=== PATIENT | female | born 2000 | race Caucasian/White ===

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

== ENCOUNTER 2023-08-06 17:13 | Emergency (ER) | payer OTHER, SELFPAY ==
[2023-08-06] MEDS ORDERED: FAMOTIDINE 20 MG/2 ML VIAL IV ONE (17:52)
[2023-08-06] MEDS ORDERED: ONDANSETRON 4 MG/2 ML VIAL ONE (17:52)
[2023-08-06] MEDS ORDERED: NA CHLORIDE 0.9% 1,000 ML ONE (17:52)
[2023-08-06 18:01] LABS: Specific Gravity 1.031 (1.005-1.030)
[2023-08-06 18:03] LABS: Absolute Lymphocytes (CBC) 1.4 K/uL (0.7-4.9); Hematocrit 40.1 % (36.0-45.0); Lymphocytes % 10.9 % (15.3-44.8); MCV 85.5 fL (80-100); MPV 7.8 fL (7.6-11.3); Platelets 277 thou/uL (152-406); RBC Red Blood Cell Count 4.68 M/uL (3.86-4.86); Specific Gravity > 1.030 (1.005-1.030); Urine Bacteria <20 /HPF (<20); Urine Bilirubin NEGATIVE (Negative); Urine Blood Negative (Negative); Urine Clarity Turbid (Clear); Urine Color Yellow (Yellow); Urine Glucose NEGATIVE (Negative); Urine Mucus Slight /HPF (None Seen); Urine Protein 2+ (Negative); Urine Urobilinogen Normal (Normal); Urine pH 8.5 (5.0-7.0)
[2023-08-06 18:10] LABS: SARS-CoV-2 Antigen Rapid Res Negative (Negative)
[2023-08-06 18:17] LABS: Albumin 3.8 g/dL (3.4-5.0); Bilirubin Total 0.4 mg/dL (0.2-1.0); Potassium 3.5 mEq/L (3.5-5.1); Protein, Total 7.7 g/dL (6.4-8.2)
--- NOTE | 2023-08-06 18:49 | RAD REPORT ---
EXAM DESCRIPTION: CT - Abdomen Pelvis W Contrast - 08/06/2023 6:32 pm CLINICAL HISTORY: Abdominal pain COMPARISON: none. TECHNIQUE: Computed axial tomography of the abdomen pelvis was obtained. 100 cc Isovue-300 was admin istered intravenously. Oral contrast was not requested which limits evaluation of bowel and appendix All CT scans are performed using dose optimization technique as appropriate and may include automated exposure control or mA/KV adjustment according to patient size. FINDINGS: The liver, spleen, pancreas, adrenal and kidneys appear unremarkable. There is no evidence of diverticulitis. Normal appendix A 2 centimeter irregularly-shaped right ovarian cyst. Small amount of free fluid IMPRESSION: A 2 centimeter irregularly-shaped right ovarian cyst probably has recently ruptured. Small amount of free fluid
--- NOTE | 2023-08-06 18:57 | ER ---
Nurse's Notes [facility] Name: Francheska Tabares Age: 22 yrs Sex: Female : 2000 Arrival Date: 08/06/2023 Time: 17:13 Bed 14 Private MD: Diagnosis: Upper abdominal pain, unspecified;Nausea with vomiting, unspecified;Other ovarian cysts Presentation: 08/06 17:28 Chief complaint: Patient states: Mid abdominal pain, N/V since 0300 this morning. jl7 Coronavirus screen: Client presents with at least one sign or symptom that may indicate coronavirus-19. Ebola Screen: No symptoms or risks identified at this time. Initial Sepsis Screen: Does the patient meet any 2 criteria? No. Patient's initial sepsis screen is negative. Does the patient have a suspected source of infection? No. Patient's initial sepsis screen is negative. Risk Assessment: Do you want to hurt yourself or someone else? Patient reports no desire to harm self or others. Onset of symptoms was August 06, 2023 at 03:00. 17:28 Method Of Arrival: Ambulatory [facility] 17:28 Acuity: NICHO 3 jl7 Triage Assessment: 17:30 General: Appears in no apparent distress. uncomfortable, Behavior is calm, cooperative, jl7 appropriate for age. Pain: Complains of pain in umbilical area, right upper quadrant and left upper quadrant Pain currently is 9 out of 10 on a pain scale. Neuro: Level of Consciousness is awake, alert, obeys commands, Oriented to person, place, time, situation. Cardiovascular: Patient's skin is warm and dry. Respiratory: Airway is patent Respiratory effort is even, unlabored, Respiratory pattern is regular, symmetrical. GI: Reports nausea, vomiting, Patient currently denies constipation, diarrhea. Derm: Skin is pink, warm \T\ dry. 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 - Social history:: Smoking status: Patient denies any tobacco usage or history of. Patient uses street drugs, marijuana. Screenin:55 [facility] ED Fall Risk Assessment (Adult) Score/Fall Risk Level 0 - 2 = Low Risk jl7 Oriented to surroundings, Maintained a safe environment. Abuse screen: Denies threats or abuse. Denies injuries from another. Nutritional screening: No deficits noted. Tuberculosis screening: No symptoms or risk factors identified. Assessment: 18:00 Reassessment: Pt reports improvement in nausea at this time. jl7 18:50 Reassessment: KARINA Verdin at bedside discussing results and POC. jl7 Vital Signs: 17:28 BP 122 / 65; Pulse 79; Resp 15; Temp 97.9; Pulse Ox 99% ; Weight 90.72 kg; Height 5 ft. jl7 3 in. ; Pain 9/10; 18:00 BP 97 / 69; Pulse 67; Resp 15; Pulse Ox 100% ; jl7 17:28 Body Mass Index 35.43 (90.72 kg, 160.02 cm) jl7 17:28 Pain Scale: Adult jl7 ED Course: 17:19 Patient arrived in ED. mg5 17:28 Elliot Anderson RN is Primary Nurse. jl7 17:28 Joyce Disla PA-C is PHCP. sb4 17:28 Jono Elizabeth MD is Attending Physician. sb4 17:30 Triage completed. jl7 17:30 Arm band placed on right wrist. jl7 17:55 Patient has correct armband on for positive identification. Provided Education on: jl7 medication uses and side effects. 17:55 Initial lab(s) drawn, by tn, sent to lab. Urine collected: clean catch specimen, clear. jl7 Inserted saline lock: 20 gauge in right antecubital area, using aseptic technique. Blood collected. 18:34 CT Abd/Pelvis - IV Contrast Only In Process Unspecified. EDMS 19:16 No provider procedures requiring assistance completed. IV discontinued, intact, jl7 bleeding controlled, No redness/swelling at site. Pressure dressing applied. Administered Medications: 17:54 Drug: NS 0.9% IV 1000 ml IV at 1 bolus Per protocol; 1000 mL bolus Route: IV; Rate: 1 jl7 bolus; Site: right antecubital; 19:15 Follow up: Response: No adverse reaction; IV Status: Completed infusion; IV Intake: jl7 800ml 17:54 Drug: Famotidine IVP 20 mg IVP once; dilute with 10 mL 0.9% NaCl; give over 2 minutes jl7 Route: IVP; Site: right antecubital; 19:15 Follow up: Response: No adverse reaction jl7 17:54 Drug: Ondansetron IVP 4 mg IVP once; over 2 minutes Route: IVP; Site: right antecubital;jl7 18:30 Follow up: Response: No adverse reaction; Nausea is decreased jl7 19:00 Not Given (Physician Discretion): morphineor iv 2 mg IVP once over 1 mins sb4 19:14 Drug: HYDROcodone-acetaminophen PO 5 mg-325 mg 1 tabs PO once Route: PO; jl7 19:15 Follow up: Response: Medication administered at discharge. jl7 19:14 Drug: Dicyclomine IM 20 mg IM once Route: IM; Site: right ventrogluteal; jl7 19:15 Follow up: Response: Medication administered at discharge. jl7 Medication: 17:55 VIS not applicable for this client. jl7 Intake: 19:15 IV: 800ml; Total: 800ml. jl7 Outcome: 18:56 Discharge ordered by . sb4 19:16 Discharged to home ambulatory, with significant other, jl7 19:16 Condition: stable 19:16 Discharge instructions given to patient, significant other, Instructed on discharge instructions, follow up and referral plans. medication usage, Demonstrated understanding of instructions, follow-up care, medications, Prescriptions given X 2, 19:16 Patient left the ED. jl7 Signatures: Dispatcher [employer] Elliot Menjivar RN RN jl7 Joyce Disla PA-C PAMamadou 4 Krista Haider mg5
--- NOTE | 2023-08-06 18:57 | EDPHYS ---
Physician Documentation [facility] Name: Francheska Tabares Age: 22 yrs Sex: Female : 2000 Arrival Date: 08/06/2023 Time: 17:13 Bed 14 Private MD: ED Physician Jono Elizabeth HPI: 08/06 17:38 This 22 yrs old Female presents to ER via Ambulatory with complaints of Abdominal Pain, sb4 Vomiting. 17:38 The patient presents with abdominal pain in the epigastric area. Onset: The sb4 symptoms/episode began/occurred this morning. The symptoms do not radiate. Associated signs and symptoms: Pertinent positives: nausea and vomiting, fever. The symptoms are described as burning. Modifying factors: The symptoms are alleviated by nothing, the symptoms are aggravated by drinking, food. The patient has experienced similar episodes in the past, a few times. The patient has not recently seen a physician. 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 - Social history:: Smoking status: Patient denies any tobacco usage or history of. Patient uses street drugs, marijuana. ROS: 17:38 Cardiovascular: Negative for chest pain, palpitations, and edema, sb4 17:38 Constitutional: Positive for fever, 17:38 Abdomen/GI: Positive for abdominal pain, nausea and vomiting, 17:38 All other systems are negative, Exam: 17:38 Constitutional: This is a well developed, well nourished patient who is awake, alert, sb4 and in no acute distress. Head/Face: Normocephalic, atraumatic. Eyes: Extra-ocular motions intact. Periorbital areas with no swelling, redness, or edema. ENT: Mucous membranes moist. Cardiovascular: Regular rate and rhythm with a normal S1 and S2. Respiratory: Lungs have equal breath sounds bilaterally, clear to auscultation and percussion. No rales, rhonchi or wheezes noted. No increased work of breathing, no retractions or nasal flaring. Abdomen/GI: Soft, non-tender, no distension. Skin: Warm, dry with normal turgor. Normal color with no rashes, no lesions, and no evidence of cellulitis. MS/ Extremity: Pulses equal, no cyanosis. Neurovascular intact. Full, normal range of motion. Neuro: Awake and alert, GCS 15, oriented to person, place, time, and situation. Motor strength 5/5 in all extremities. Sensory grossly intact. Vital Signs: 17:28 BP 122 / 65; Pulse 79; Resp 15; Temp 97.9; Pulse Ox 99% ; Weight 90.72 kg; Height 5 ft. jl7 3 in. ; Pain 9/10; 18:00 BP 97 / 69; Pulse 67; Resp 15; Pulse Ox 100% ; jl7 17:28 Body Mass Index 35.43 (90.72 kg, 160.02 cm) jl7 17:28 Pain Scale: Adult jl7 MDM: 17:28 Patient medically screened. sb4 17:38 Differential diagnosis: Cholelithiasis, gastritis, non-specific abd pain, pancreatitis, sb4 Peptic Ulcer Disease, urinary tract infection. 18:55 Data reviewed: vital signs, nurses notes, lab test result(s), radiologic studies, and sb4 as a result, I will discharge patient. Consideration of Admission/Observation Escalation of care including admission/observation considered. Counseling: I had a detailed discussion with the patient and/or guardian regarding the historical points, exam findings, and any diagnostic results supporting the discharge/admit diagnosis, lab results, radiology results, to return to the emergency department if symptoms worsen or persist or if there are any questions or concerns that arise at home. Special discussion: Based on the patient's Hx, exam, and Dx evaluation, there is no indication for emergent surgery or inpatient Tx. It is understood by the patient/guardian that if the Sx's persist or worsen they need to return immediately for re-evaluation. 08/06 17:36 Order name: CBC with Diff; Complete Time: 18:06 sb4 08/06 17:36 Order name: CMP; Complete Time: 18:17 sb4 08/06 17:36 Order name: Lipase; Complete Time: 18:17 sb4 08/06 17:36 Order name: Test, Urine; Complete Time: 18:02 sb4 08/06 17:36 Order name: UAM; Complete Time: 18:06 sb4 08/06 17:36 Order name: SARS RAPID; Complete Time: 18:16 sb4 08/06 17:36 Order name: Flu; Complete Time: 18:20 sb4 08/06 17:36 Order name: CT Abd/Pelvis - IV Contrast Only; Complete Time: 18:50 sb4 08/06 17:36 Order name: IV Saline Lock; Complete Time: 17:54 sb4 08/06 17:36 Order name: Labs collected and sent; Complete Time: 17:54 sb4 08/06 18:51 Order name: PO challenge; Complete Time: 18:56 sb4 Administered Medications: 17:54 Drug: NS 0.9% IV 1000 ml IV at 1 bolus Per protocol; 1000 mL bolus Route: IV; Rate: 1 jl7 bolus; Site: right antecubital; 19:15 Follow up: Response: No adverse reaction; IV Status: Completed infusion; IV Intake: jl7 800ml 17:54 Drug: Famotidine IVP 20 mg IVP once; dilute with 10 mL 0.9% NaCl; give over 2 minutes jl7 Route: IVP; Site: right antecubital; 19:15 Follow up: Response: No adverse reaction jl7 17:54 Drug: Ondansetron IVP 4 mg IVP once; over 2 minutes Route: IVP; Site: right antecubital;jl7 18:30 Follow up: Response: No adverse reaction; Nausea is decreased jl7 19:00 Not Given (Physician Discretion): morphineor iv 2 mg IVP once over 1 mins sb4 19:14 Drug: HYDROcodone-acetaminophen PO 5 mg-325 mg 1 tabs PO once Route: PO; jl7 19:15 Follow up: Response: Medication administered at discharge. jl7 19:14 Drug: Dicyclomine IM 20 mg IM once Route: IM; Site: right ventrogluteal; jl7 19:15 Follow up: Response: Medication administered at discharge. jl7 Disposition Summary: 08/06/23 18:56 Discharge Ordered Notes: Location: Home sb4 Problem: new sb4 Symptoms: have improved sb4 Condition: Stable sb4 Diagnosis - Upper abdominal pain, unspecified sb4 - Nausea with vomiting, unspecified sb4 - Other ovarian cysts sb4 Followup: sb4 - With: Emergency Department - When: As needed - Reason: Trouble breathing, Worsening of condition Discharge Instructions: - Discharge Summary Sheet sb4 - Abdominal Pain, Adult sb4 - Nausea and Vomiting, Adult sb4 - Ovarian Cyst sb4 Forms: - Work release form sp - Medication Reconciliation Form sb4 - Thank You Letter sb4 - Antibiotic Education sb4 - Prescription Opioid Use sb4 - Patient Portal Instructions sb4 - Leadership Thank You Letter sb4 Prescriptions: - Zofran 4 mg Oral Tablet - take 1 tablet ORAL route every 12 hours As needed; 20 tablet; Refills: 0, sb4 Product Selection Permitted - dicyclomine 20 mg Oral tablet - take 1 tablet ORAL route 3 times per day; 20 tablet; Refills: 0, Product sb4 Selection Permitted Addendum: 08/09/2023 10:22 I was immediately available for consultation during this patient's visit. I did not e c2 personally see the patient or guide the patient's care.. Signatures: Dispatcher [employer] Elliot Menjivar RN RN jl7 Joyce Disla PA-C PAMamadou sb4 Jono Elizabeth MD MD ec2
[2023-08-06] MEDS ORDERED: DICYCLOMINE HCL 10 MG CAP ONE (19:16)
[2023-08-06] MEDS ORDERED: HYDROCODONE/APAP 5/325 MG TAB ONE (19:16)
[2023-08-06] MEDS ORDERED: DICYCLOMINE HCL 20 MG/2 ML AMP IM ONE (19:20)
[2023-08-06 19:43] VITALS: TEMP 97.9
[2023-08-06 19:44] VITALS: BP 97/69; O2SAT 100
== END 2023-08-06 19:16 | disposition home or self-care (01) ==
LOC: ER 17:13
DX: R10.13 Epigastric pain (principal); R11.2 Nausea with vomiting, unspecified; N83.299 Other ovarian cyst, unspecified side; Z11.52 Encounter for screening for COVID-19
CPT/HCPCS: 36415; 74177; 80053; 81001; 81025; 83690; 85025; 87804; 87811; 96361; 96372; 96374; 96375; 99284; J0500; J2405; J7030; Q9967

== ENCOUNTER 2023-08-08 11:00 | Emergency (ER) | payer SELFPAY ==
[2023-08-08 11:44] LABS: Specific Gravity 1.016 (1.005-1.030); Urine Bacteria 20-50 /HPF (<20); Urine Bilirubin NEGATIVE (Negative); Urine Blood 2+ (Negative); Urine Clarity Extremely Turbid (Clear); Urine Color Light-Yellow (Yellow); Urine Glucose NEGATIVE (Negative); Urine Protein TRACE (Negative); Urine RBC >50 /HPF (None Seen); Urine Urobilinogen Normal (Normal)
[2023-08-08] MEDS ORDERED: KETOROLAC 30 MG/ML INJ ONE (11:46)
--- NOTE | 2023-08-08 11:47 | ER ---
Nurse's Notes [facility] Name: Francheska Tabares Age: 22 yrs Sex: Female : 2000 Arrival Date: 08/08/2023 Time: 11:00 Bed 19 Private MD: Diagnosis: UTI/ Urinary tract infection, site not specified Presentation: 08/08 11:09 Chief complaint: Patient states: Pt reports pain in the vagina and worsening vaginal jl7 pain with urination, denies burning with urination. Coronavirus screen: At this time, the client does not indicate any symptoms associated with coronavirus-19. Ebola Screen: No symptoms or risks identified at this time. Initial Sepsis Screen: Does the patient meet any 2 criteria? No. Patient's initial sepsis screen is negative. Does the patient have a suspected source of infection? No. Patient's initial sepsis screen is negative. Risk Assessment: Do you want to hurt yourself or someone else? Patient reports no desire to harm self or others. Onset of symptoms was August 08, 2023. 11:09 Method Of Arrival: Ambulatory 7 11:09 Acuity: NICHO 3 jl7 Triage Assessment: 11:10 General: Appears in no apparent distress. uncomfortable, Behavior is cooperative, jl7 appropriate for age, crying. Pain: Complains of pain in pelvis Pain currently is 9 out of 10 on a pain scale. GI: Reports nausea, vomiting. 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 - Social history:: Smoking status: Patient denies any tobacco usage or history of. Patient uses street drugs, marijuana. Screenin:43 [facility] ED Fall Risk Assessment (Adult) History of falling in the last 3 months, mb9 including since admission No falls in past 3 months (0 pts) Confusion or Disorientation No (0 pts) Intoxicated or Sedated No (0 pts) Impaired Gait No (0 pts) Mobility Assist Device Used No (0 pt) Altered Elimination No (0 pt) Score/Fall Risk Level 0 - 2 = Low Risk Oriented to surroundings, Maintained a safe environment, Educated pt \T\ family on fall prevention, incl call for assistance when getting out of bed. Abuse screen: Denies threats or abuse. Nutritional screening: No deficits noted. Tuberculosis screening: No symptoms or risk factors identified. Assessment: 11:42 General: Appears in no apparent distress. Behavior is calm, cooperative. Pain: mb9 Complains of pain in pelvis. Neuro: Ruiz Agitation-Sedation Scale (RASS): 0 - Alert and Calm Level of Consciousness is awake, alert, obeys commands, Oriented to person, place, time, situation, Appropriate for age. Cardiovascular: Patient's skin is warm and dry. Respiratory: Airway is patent Respiratory effort is even, unlabored, Respiratory pattern is regular, symmetrical. GI: Abdomen is round non-distended, Abd is soft and non tender X 4 quads. : Reports burning with urination, urgency, urinary frequency. : Urine is cloudy. EENT: No signs and/or symptoms were reported regarding the EENT system. Derm: Skin is pink, warm \T\ dry. Musculoskeletal: Range of motion: intact in all extremities. Vital Signs: 11:09 BP 125 / 88; Pulse 87; Resp 17; Temp 97.7; Pulse Ox 99% ; Weight 90.72 kg; Height 5 ft. jl7 3 in. ; Pain 9/10; 11:09 Body Mass Index 35.43 (90.72 kg, 160.02 cm) jl7 11:09 Pain Scale: Adult jl7 ED Course: 11:02 Patient arrived in ED. mg5 11:03 Ruthie Canseco FNP-C is [facility]. snw 11:03 Madhu Stevens MD is Attending Physician. snw 11:10 Triage completed. jl7 11:10 Arm band placed on right wrist. jl7 11:19 Amber Ordoñez RN is Primary Nurse. mb9 11:37 Urine W/Microscopic (UAM) Sent. mb9 11:43 Placed in gown. Bed in low position. Call light in reach. Side rails up X 1. Client mb9 placed on continuous cardiac and pulse oximetry monitoring. NIBP monitoring applied. 11:43 No provider procedures requiring assistance completed. mb9 12:17 Urine Culture Sent. mb9 12:27 Patient did not have IV access during this emergency room visit. mb9 Administered Medications: 11:37 Drug: Ketorolac IM 30 mg IM once Route: IM; Site: right deltoid; mb9 12:23 Drug: Rocephin (cefTRIAXone) IM 1 grams IM once Route: IM; Site: left gluteus; mb9 Medication: 11:43 VIS not applicable for this client. mb9 Outcome: 11:46 Discharge ordered by MD. snw 12:27 Discharged to home ambulatory, mb9 12:27 Condition: stable 12:27 Discharge instructions given to patient, Instructed on discharge instructions, follow up and referral plans. Demonstrated understanding of instructions, follow-up care, medications, Prescriptions given X 3, 12:27 Patient left the ED. mb9 Addendum: 08/11/2023 07:15 Addendum: Culture Results: Positive urine culture. No further action required. Bacteria e b sensitive to prescribed antibiotic. Signatures: Ruthie Canseco, TEACHER'S ASSISTANT-C TEACHER'S ASSISTANT-Csnw Elliot Anderson RN RN jl7 Nancy Rivas Mary Beth, RN RN mb9 Krista Haider mg5
--- NOTE | 2023-08-08 11:47 | EDPHYS ---
Physician Documentation [facility] Name: Francheska Tabares Age: 22 yrs Sex: Female : 2000 Arrival Date: 08/08/2023 Time: 11:00 Bed 19 Private MD: ED Physician Madhu Stevens HPI: 08/08 11:43 This 22 yrs old Female presents to ER via Ambulatory with complaints of dysuria. snw 11:43 The patient presents with urinary symptoms, dysuria, frequency, hesitancy, urgency. snw Onset: The symptoms/episode began/occurred suddenly, today. Associated signs and symptoms: Pertinent positives: dysuria, urinary frequency. It is unknown whether or not the patient has had similar symptoms in the past. The patient has been recently seen by a physician: in the [facility], emergency department, this week. pt had CT and labs at last visit, + 2cm right irregular ovarian cyst. 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 - Social history:: Smoking status: Patient denies any tobacco usage or history of. Patient uses street drugs, marijuana. ROS: 11:42 Constitutional: Negative for fever, chills, and weight loss, Eyes: Negative for injury, snw pain, redness, and discharge, ENT: Negative for injury, pain, and discharge, Neck: Negative for injury, pain, and swelling, Cardiovascular: Negative for chest pain, palpitations, and edema, Respiratory: Negative for shortness of breath, cough, wheezing, and pleuritic chest pain, Back: Negative for injury and pain, MS/Extremity: Negative for injury and deformity, Skin: Negative for injury, rash, and discoloration, Neuro: Negative for headache, weakness, numbness, tingling, and seizure, Psych: Negative for depression, anxiety, suicide ideation, homicidal ideation, and hallucinations, 11:42 Abdomen/GI: Positive for abdominal pain, abdominal cramps, 11:42 : Positive for urinary symptoms, of the suprapubic area, right inguinal area and left inguinal area, Exam: 11:42 Constitutional: This is a well developed, well nourished patient who is awake, alert, snw and in no acute distress. Head/Face: Normocephalic, atraumatic. Eyes: Pupils equal round and reactive to light, extra-ocular motions intact. Lids and lashes normal. Conjunctiva and sclera are non-icteric and not injected. Cornea within normal limits. Periorbital areas with no swelling, redness, or edema. ENT: Nares patent. No nasal discharge, no septal abnormalities noted. Tympanic membranes are normal and external auditory canals are clear. Oropharynx with no redness, swelling, or masses, exudates, or evidence of obstruction, uvula midline. Mucous membranes moist. Neck: Trachea midline, no thyromegaly or masses palpated, and no cervical lymphadenopathy. Supple, full range of motion without nuchal rigidity, or vertebral point tenderness. No Meningismus. Chest/axilla: Normal chest wall appearance and motion. Nontender with no deformity. No lesions are appreciated. Cardiovascular: Regular rate and rhythm with a normal S1 and S2. No gallops, murmurs, or rubs. Normal PMI, no JVD. No pulse deficits. Respiratory: Lungs have equal breath sounds bilaterally, clear to auscultation and percussion. No rales, rhonchi or wheezes noted. No increased work of breathing, no retractions or nasal flaring. Back: No spinal tenderness. No costovertebral tenderness. Full range of motion. Skin: Warm, dry with normal turgor. Normal color with no rashes, no lesions, and no evidence of cellulitis. MS/ Extremity: Pulses equal, no cyanosis. Neurovascular intact. Full, normal range of motion. Neuro: Awake and alert, GCS 15, oriented to person, place, time, and situation. Cranial nerves II-XII grossly intact. Motor strength 5/5 in all extremities. Sensory grossly intact. Cerebellar exam normal. Normal gait. Psych: Awake, alert, with orientation to person, place and time. Behavior, mood, and affect are within normal limits. 11:42 Abdomen/GI: Inspection: abdomen appears normal, Bowel sounds: normal, Palpation: abdomen is soft and non-tender, in all quadrants, Vital Signs: 11:09 BP 125 / 88; Pulse 87; Resp 17; Temp 97.7; Pulse Ox 99% ; Weight 90.72 kg; Height 5 ft. jl7 3 in. ; Pain 9/10; 11:09 Body Mass Index 35.43 (90.72 kg, 160.02 cm) jl7 11:09 Pain Scale: Adult jl7 MDM: 11:16 Patient medically screened. snw 11:49 Differential diagnosis: nonspecific abdominal pain, ovarian cyst, urinary tract snw infection. Data reviewed: vital signs, nurses notes, lab test result(s). I considered the following discharge prescriptions or medication management in the emergency department Medications were administered in the Emergency Department. See MAR. Counseling: I had a detailed discussion with the patient and/or guardian regarding the historical points, exam findings, and any diagnostic results supporting the discharge/admit diagnosis, lab results, the need for outpatient follow up, for definitive care, to return to the emergency department if symptoms worsen or persist or if there are any questions or concerns that arise at home. Response to treatment: the patient's symptoms have mildly improved after treatment. Special discussion: Based on the history and exam findings, there is no indication for further emergent testing or inpatient evaluation. I discussed with the patient/guardian the need to see the primary care provider for further evaluation of the symptoms. 08/08 11:23 Order name: Urine W/Microscopic (UAM); Complete Time: 11:46 snw 08/08 11:47 Order name: Urine Culture EDMS Administered Medications: 11:37 Drug: Ketorolac IM 30 mg IM once Route: IM; Site: right deltoid; mb9 12:23 Drug: Rocephin (cefTRIAXone) IM 1 grams IM once Route: IM; Site: left gluteus; mb9 Disposition: 15:19 Co-signature as Attending Physician, Madhu Stevens MD I reviewed the patient's care rn provided by the Advanced Practice Provider and agree with the diagnosis and treatment plan. Disposition Summary: 08/08/23 11:46 Discharge Ordered Notes: Location: Home snw Condition: Stable snw Diagnosis - UTI/ Urinary tract infection, site not specified snw Followup: snw - With: Emergency Department - When: As needed - Reason: Worsening of condition Followup: snw - With: Private Physician - When: 2 - 3 days - Reason: Recheck today's complaints, Continuance of care, Re-evaluation by your physician Discharge Instructions: - Discharge Summary Sheet snw - Dysuria snw - Urinary Tract Infection, Adult snw - Rehydration, Adult snw Forms: - Work release form snw - Medication Reconciliation Form snw - Thank You Letter snw - Antibiotic Education snw - Prescription Opioid Use snw - Patient Portal Instructions snw - Leadership Thank You Letter snw Prescriptions: - Augmentin 875-125 mg Oral Tablet - take 1 tablet ORAL route every 12 hours for 10 days; 20 tablet; Refills: 0, snw Product Selection Permitted - Pyridium 200 mg Oral tablet - take 1 tablet ORAL route every 8 hours As needed; 3 tablet; Refills: 0, Product snw Selection Permitted - promethazine 25 mg Oral Tablet - take 1 tablet ORAL route every 6 hours As needed; 20 tablet; Refills: 0, snw Product Selection Permitted Signatures: Dispatcher [employer] EDRuthie Gann, WEB CONTENT COORDINATOR-C WEB CONTENT COORDINATOR-Csnw Madhu Stevens MD MD rn Leal, Jahala RN RN jl7 Amber Ordoñez, RN RN mb9
[2023-08-08] MEDS ORDERED: CEFTRIAXONE 1000 MG/VIAL ONE (12:18)
[2023-08-08] MEDS ORDERED: LIDOCAINE 1% MPF 2 ML AMPULE ONE (12:18)
[2023-08-08 12:33] VITALS: BP 125/88; TEMP 97.7; O2SAT 99
== END 2023-08-08 12:27 | disposition home or self-care (01) ==
LOC: ER 11:00
DX: N39.0 Urinary tract infection, site not specified (principal)
CPT/HCPCS: 81001; 87077; 87086; 87088; 87186; 96372; 99284; J0696

== ENCOUNTER → 2023-10-11 | Emergency (ER) | payer SELFPAY ==
[~2023-10-11] MED LIST: HYDROCODONE/CHLORPHEN 5 ML/OSYR ONE
--- OUTSIDE RECORDS SUMMARY | 2023-10-11 14:57 | XMS REPORT | Continuity of Care Document ---
Author Name Unknown Address [address] [place] [address] [employer]connect Address [address] [place] [id number] Care Team Providers Care Glaze Supervisor Name Role Phone Unavailable Unavailable Unavailable
[2023-10-11 15:57] LABS: SARS-CoV-2 Antigen Rapid Res Negative (Negative)
--- NOTE | 2023-10-11 16:00 | RAD REPORT ---
EXAM DESCRIPTION: RAD - Chest Pa And Lat (2 Views) - 10/11/2023 3:42 pm CLINICAL HISTORY: Congestion;Cough Chest pain. COMPARISON: No comparisons FINDINGS: The lungs are clear. The heart is normal in size. No displaced fractures. IMPRESSION: No acute or concerning finding suspected.
--- NOTE | 2023-10-11 16:23 | ER ---
Nurse's Notes [facility] Name: Francheska Tabares Age: 23 yrs Sex: Female : 2000 Arrival Date: 10/11/2023 Time: 14:54 Bed DIS3 Private MD: Diagnosis: Influenza B;Acute bronchitis, unspecified Presentation: 10/11 15:16 Method Of Arrival: Ambulatory ll1 15:23 Chief complaint: Patient states: Cough since 09/28. + fever, N/V with bad cough, body ll1 aches, MTZ. Coronavirus screen: Client denies travel out of the [place] in the last 14 days. cough unrelated to allergies, fatigue, fever, headache, nausea, vomiting. Client presents with at least one sign or symptom that may indicate coronavirus-19. Standard/surgical mask placed on the client. Ebola Screen: Patient denies travel to an Ebola-affected area in the 21 days before illness onset. Initial Sepsis Screen: Does the patient meet any 2 criteria? No. Patient's initial sepsis screen is negative. Does the patient have a suspected source of infection? Yes: Productive cough/pneumonia. Risk Assessment: Do you want to hurt yourself or someone else? Patient reports no desire to harm self or others. Onset of symptoms was October 08, 2023. 15:23 Acuity: NICHO 4 ll1 Triage Assessment: 15:26 General: Appears uncomfortable, Behavior is calm, cooperative, appropriate for age. ll1 Pain: Complains of pain in head Pain currently is 9 out of 10 on a pain scale. Neuro: Reports dizziness, headache weakness. Respiratory: Reports cough that is pain with cough. GI: Reports nausea, vomiting. Musculoskeletal: Reports pain in body aches. Historical: - Allergies: 15:04 No Known Allergies; ll1 - PMHx: 15:25 None; ll1 - PSHx: 15:04 Right Ankle; ll1 - Immunization history:: Adult Immunizations up to date. - Social history:: Smoking status: Patient reports the use of cigarette tobacco products, smokes one-half pack cigarettes per day. Assessment: 15:34 Reassessment: Patient and/or family updated on plan of care and expected duration. Pain ll1 level reassessed. Vital Signs: 15:23 BP 134 / 83; Pulse 91; Resp 18; Temp 98.9; Pulse Ox 99% ; Weight 95.25 kg; Height 5 ft. ll1 4 in. ; Pain 9/10; 15:23 Body Mass Index 36.05 (95.25 kg, 162.56 cm) ll1 15:23 Pain Scale: Adult ll1 ED Course: 14:56 Patient arrived in ED. mr 14:58 Joyce Disla [facility]-C [facility]. sb4 14:58 Pete Campbell MD is Attending Physician. sb4 15:04 Arm band placed on. ll1 15:25 Triage completed. ll1 15:29 SARS RAPID Sent. ll1 15:29 Flu Sent. ll1 15:34 SARS RAPID Sent. ll1 15:34 Flu Sent. ll1 15:44 Chest Pa And Lat (2 Views) XRAY In Process Unspecified. EDAR 17:01 Elliot Anderson, RN is Primary Nurse. jl7 17:02 No provider procedures requiring assistance completed. Patient did not have IV access jl7 during this emergency room visit. Administered Medications: 15:34 Drug: Tussionex Pennkinetic ER PO Suspension 5 ml PO once Route: PO; ll1 17:02 Follow up: Response: No adverse reaction; Marked relief of symptoms jl7 Medication: 17:01 VIS not applicable for this client. jl7 Outcome: 16:22 Discharge ordered by . sb4 17:02 Discharged to home ambulatory, jl7 17:02 Condition: stable 17:02 Discharge instructions given to patient, Instructed on discharge instructions, follow up and referral plans. medication usage, Demonstrated understanding of instructions, follow-up care, medications, Prescriptions given X 2, 17:02 Patient left the ED. jl7 Signatures: Dispatcher [employer] [facility] Amber Ann, Reg Reg mr Elliot Anderson, RN RN jl7 Nic Mccabe RN RN ll1 Joyce Disla PA-C PA-C sb4 Corrections: (The following items were deleted from the chart) 15:26 15:25 Social history: Smoking status: Patient reports the use of cigarette tobacco ll1 products, smokes one-half pack cigarettes per day, ll1 15:27 15:25 Social history: Smoking status: Patient denies any tobacco usage or history of. sb4 ll1
--- NOTE | 2023-10-11 16:23 | EDPHYS ---
Physician Documentation [facility] Name: Francheska Tabares Age: 23 yrs Sex: Female : 2000 Arrival Date: 10/11/2023 Time: 14:54 Bed DIS3 Private MD: ED Physician Pete Campbell HPI: 10/11 15:25 This 23 yrs old Female presents to ER via Ambulatory with complaints of Cough. sb4 15:25 The patient or guardian reports cough, that is constant, with no sputum. Onset: The sb4 symptoms/episode began/occurred 4 day(s) ago. Associated signs and symptoms: Pertinent positives: chest pain, fever, nausea, vomiting, Pertinent negatives: ear ache. The patient has not experienced similar symptoms in the past, but family has similar symptoms. The patient has not recently seen a physician. 15:25 persistent cough despite several OTC antitussives. + sick contacts. + nausea, fevers, sb4 chills. Historical: - Allergies: 15:04 No Known Allergies; ll1 - PMHx: 15:25 None; ll1 - PSHx: 15:04 Right Ankle; ll1 - Immunization history:: Adult Immunizations up to date. - Social history:: Smoking status: Patient reports the use of cigarette tobacco products, smokes one-half pack cigarettes per day. ROS: 15:25 Cardiovascular: Negative for chest pain, palpitations, and edema, sb4 15:25 Constitutional: Positive for fever, malaise, 15:25 Respiratory: Positive for cough, 15:25 All other systems are negative, Exam: 15:25 Constitutional: This is a well developed, well nourished patient who is awake, alert, sb4 and in no acute distress. Head/Face: Normocephalic, atraumatic. Eyes: Extra-ocular motions intact. Periorbital areas with no swelling, redness, or edema. ENT: Mucous membranes moist. Cardiovascular: Regular rate and rhythm with a normal S1 and S2. Respiratory: Lungs have equal breath sounds bilaterally, clear to auscultation and percussion. No rales, rhonchi or wheezes noted. No increased work of breathing, no retractions or nasal flaring. Abdomen/GI: Soft, non-tender, no distension. Skin: Warm, dry with normal turgor. Normal color with no rashes, no lesions, and no evidence of cellulitis. MS/ Extremity: Pulses equal, no cyanosis. Neurovascular intact. Full, normal range of motion. Neuro: Awake and alert, GCS 15, oriented to person, place, time, and situation. Motor strength 5/5 in all extremities. Sensory grossly intact. 15:25 Respiratory: actively coughing during triage, sounds "wet", Vital Signs: 15:23 BP 134 / 83; Pulse 91; Resp 18; Temp 98.9; Pulse Ox 99% ; Weight 95.25 kg; Height 5 ft. ll1 4 in. ; Pain 9/10; 15:23 Body Mass Index 36.05 (95.25 kg, 162.56 cm) ll1 15:23 Pain Scale: Adult ll1 MDM: 15:01 Patient medically screened. sb4 15:25 Differential Diagnosis: Bronchitis Influenza Upper Respiratory Infection Viral Syndrome sb4 Pneumonia. 16:20 Data reviewed: vital signs, nurses notes, lab test result(s), radiologic studies, and sb4 as a result, I will discharge patient. Counseling: I had a detailed discussion with the patient and/or guardian regarding the historical points, exam findings, and any diagnostic results supporting the discharge/admit diagnosis, lab results, radiology results, to return to the emergency department if symptoms worsen or persist or if there are any questions or concerns that arise at home. 10/11 15:25 Order name: SARS RAPID; Complete Time: 15:58 sb4 10/11 15:25 Order name: Flu; Complete Time: 16:11 sb4 10/11 15:25 Order name: Chest Pa And Lat (2 Views) XRAY; Complete Time: 16:02 sb4 Administered Medications: 15:34 Drug: Tussionex Pennkinetic ER PO Suspension 5 ml PO once Route: PO; ll1 17:02 Follow up: Response: No adverse reaction; Marked relief of symptoms jl7 Disposition: 17:48 Co-signature as Attending Physician, Pete Campbell MD I agree with the assessment and kdr plan of care. Disposition Summary: 10/11/23 16:22 Discharge Ordered Notes: Location: Home sb4 Problem: an ongoing problem sb4 Symptoms: have improved sb4 Condition: Stable sb4 Diagnosis - Influenza B sb4 - Acute bronchitis, unspecified sb4 Followup: sb4 - With: Emergency Department - When: As needed - Reason: Trouble breathing, Worsening of condition Discharge Instructions: - Discharge Summary Sheet sb4 - Acute Bronchitis, Adult sb4 - Influenza, Adult, [id number] sb4 Forms: - Work release form sb4 - Medication Reconciliation Form sb4 - Thank You Letter sb4 - Antibiotic Education sb4 - Prescription Opioid Use sb4 - Patient Portal Instructions sb4 - Leadership Thank You Letter sb4 Prescriptions: - Tessalon Perles 100 mg Oral capsule - take 2 capsule ORAL route every 8 hours As needed; 30 capsule; Refills: 0, sb4 Product Selection Permitted - Medrol (Daryl) 4 mg Oral Tablets, Dose Pack - take 1 tablet ORAL route as directed - follow package instructions; 1 packet; sb4 Refills: 0, Product Selection Permitted Signatures: Dispatcher [employer] EDPete Hummel MD MD [facility] Nic Mccabe RN RN ll1 Joyce Disla PA-C PA-C sb4 Elliot Anderson RN jl7 Corrections: (The following items were deleted from the chart) 15:26 15:25 Social history: Smoking status: Patient reports the use of cigarette tobacco ll1 products, smokes one-half pack cigarettes per day, ll1 15:27 15:25 Social history: Smoking status: Patient denies any tobacco usage or history of. sb4 ll1
[2023-10-11 18:18] VITALS: BP 134/83; TEMP 98.9; O2SAT 99
== END ==
LOC: ER 14:54
DX: J10.1 Influenza due to other identified influenza virus with other respiratory manifestations (principal); J20.9 Acute bronchitis, unspecified; Z11.52 Encounter for screening for COVID-19; F17.210 Nicotine dependence, cigarettes, uncomplicated
CPT/HCPCS: 36415; 71046; 87804; 87811; 99283

== ENCOUNTER → 2023-11-02 | Emergency (ER) | payer SELFPAY ==
[~2023-11-02] MED LIST changes: -HYDROCODONE/CHLORPHEN 5 ML/OSYR ONE; +IBUPROFEN 400 MG TAB ONE; +KETOROLAC 30 MG/ML INJ ONE
--- OUTSIDE RECORDS SUMMARY | 2023-11-02 11:20 | XMS REPORT | Continuity of Care Document ---
Author Name Unknown Address [address] [facility] [place] [address] [facility] [address] [facility] [address] [place] [address] Care Team Providers Care Converting Operator Name Role Phone Pcp, Patient Does Not Have A Primary Care Physic sissy JENNIFER REYNAGA Attending Clinician Unavailable Jennifer Toney Attending Clinician [phone] THELMA GARCIA Attending Clinician Unavailable Thelma Gore Attending Clinician [phone] Ceci GIBBS, Gissell Attending Clinician Monse vailable Doctor Unassigned, [place] Attending Clinician U navailable AkinRachel Mir Attending Clinician + MICHA VANESSA Attending Clinician Unavailable Micha Zamudio Attending Clinician Suzette Michele MD Attending Clinician [phone] SUZETTE MICHELE Attending Clinician Unavailable Solange Ford MD Attending Clinician [phone] Anatoly Valdovinos MD Attending Clinician [phone] Visit, [facility] Nurse Attending Clinician Unava Anatoly Barksdale MD Admitting Clinician + [phone] Payers Payer Name Policy Type Policy Number Effective Date Expirati on Date Source [facility] MARCO ANTONIO MOORE [id number] 2017 00:00:00 Problems Condition Name Condition Details Condition Category Status Onset Date Resolution Date Last Treatment Date Treating Clinician Comments Source Vomiting Vomiting Disease Active 03-11 00:00: 00 [facility] Obesity (BMI 30-39.9) Obesity (BMI 30-39.9) Disease Active 03-11 00:00: 00 [facility] BMI 39.0-39.9, adult BMI 39.0-39.9, adult Disease Active 2018-10 00:00: 00 [facility] Sexually active child Sexually active child Disease Active 2018-10 00:00: 00 [facility] Depo-Prove ra contracept dash status Depo-Prove ra contracept dash status Disease Active 10-18 00:00: 00 [facility] Screening examinatio n for STD (sexually transmitte d disease) Screening examinatio n for STD (sexually transmitte d disease) Disease Active 2017-10 00:00: 00 [facility] Over weight Over weight Disease Active 2017-10 00:00: 00 [facility] control control Disease Active 07-04 00:00: 00 [facility] Allergies, Adverse Reactions, Alerts Allergy Name Allergy Type Status Severity Reaction(s) Onset Date Inactive Date Treating Clinician Comments Source NO KNOWN ALLERGIE S Drug Class Active [facility] Social History Social Habit Start Date Stop Date Quantity Comments Source History SDOH Alcohol Comment [facility] History SDOH Alcohol Binge [facility] Exposure to SARS-CoV-2 (event) 2023-02-13 00:00:00 2023-02-23 17:41:00 Not sure [facility] Alcohol intake 2021-10-18 00:00:00 2021-10-18 00:00:00 0 /d [facility] Tobacco use and exposure 2021-03-11 00:00:00 2021-03-11 00:00:00 Smokeless tobacco non-user [facility] Education 2021-03-11 00:00:00 2021-03-11 00:00:00 13 [facility] History of Social function 2020-05-14 00:00:00 2020-05-14 00:00:00 [facility] History SDOH Alcohol Frequency 2019-07-16 00:00:00 2019-07-16 00:00:00 1 [facility] Sex Assigned At 2002 00:00:00 2000 00:00:00 [facility] Smoking Status Start Date Stop Date Source Never smoked tobacco [facility] Medications Ordered Medication Name Filled Medication Name Start Date Stop Date Current Medication? Ordering Clinician Indication Dosage Frequency Signature (SIG) Comments Components Source maalox:diph enhydrAMINE :lidocaine 2 % viscous 1:1:1 (FIRST-MOUT HWASH BLM) oral suspension 15 mL 05-23 21:00: 00 05-23 22:18 :00 No 15mL 15 mL, Oral, ONCE, 1 dose, On Mon05/23/23 at 1600, Routine [facility] pantoprazol e (PROTONIX) injection 40 mg 05-23 21:00: 00 05-23 22:17 :00 No 40mg 40 mg, Slow IV Push, ONCE, 1 dose, On Mon05/23/23 at 1600 [facility] ondansetron (ZOFRAN (PF)) injection 4 mg 05-23 21:00: 00 05-23 22:17 :00 No 4mg 4 mg, Slow IV Push, ONCE, 1 dose, On Mon05/23/23 at 1600, [facility] ondansetron 4 mg disintegrat ing tablet 05-23 00:00: 00 Yes [id number] 4mg Take 1 tablet by mouth every 8 (eight) hours as needed for Nausea and Vomiting (N/V). [facility] famotidine (PEPCID) 20 mg tablet 05-23 00:00: 00 06-23 04:59 :00 No [id number] 20mg Take 1 tablet by mouth in the morning and 1 tablet in the evening. Do all this for 30 days. [facility] predniSONE (DELTASONE) tablet 10 mg 02-24 00:30: 00 02-24 00:39 :00 No 10mg 10 mg, Oral, ONCE, 1 dose, On Mon02/23/23 at 1930, [facility] amoxicillin -clavulanat e (AUGMENTIN) 875-125 mg per tablet 1 tablet 02-24 00:28: 00 02-24 00:38 :00 No 1{tbl} 1 tablet, Oral, ONCE, 1 dose, On Mon02/23/23 at 1930, [facility]
Re ason for Anti-Infec tive: Documented Infection< br>Documen candido Infection Site: HEENT
D uration of Therapy: Other (see Comments) [facility] ketorolac (TORADOL) injection 30 mg 02-23 23:09: 00 02-23 23:23 :00 No 30mg 30 mg, Intramuscu lar, ONCE, 1 dose, On Mon02/23/23 at 1815, [facility] amoxicillin -clavulanat e 875-125 mg per tablet 02-23 00:00: 00 Yes [id number] 1{tbl} Take 1 tablet by mouth every 12 (twelve) hours. [facility] amoxicillin -clavulanat e 875-125 mg per tablet 02-23 00:00: 00 Yes [id number] 1{tbl} Take 1 tablet by mouth every 12 (twelve) hours. [facility] predniSONE 10 mg tablet 02-23 00:00: 00 02-27 04:59 :00 No [id number] 30mg Take 3 tablets by mouth in the morning for 3 days. [facility] ibuprofen (IBU) tablet 600 mg 10-19 05:45: 00 10-19 04:40 :00 No 600mg 600 mg, Oral, ONCE, 1 dose, On 10/18/21 at 2345, LEOLA [facility] HYDROcodone -acetaminop hen (NORCO) 10-325 mg tablet 1 tablet 05-22 13:15: 00 05-22 12:30 :00 No 1{tbl} 1 tablet, Oral, ONCE, 1 dose, 05/22/21 at 0815, Routine [facility] ibuprofen 800 mg tablet 05-22 00:00: 00 Yes [id number] 800mg Take 1 tablet by mouth every 8 (eight) hours as needed for Pain (scale 4-6) or Temp > 38.5 C. [facility] ibuprofen 800 mg tablet 05-22 00:00: 00 Yes [id number] 800mg Take 1 tablet by mouth every 8 (eight) hours as needed for Pain (scale 4-6) or Temp > 38.5 C. [facility] ibuprofen 800 mg tablet 05-22 00:00: 00 Yes [id number] 800mg Take 1 tablet by mouth every 8 (eight) hours as needed for Pain (scale 4-6) or Temp > 38.5 C. [facility] ibuprofen 800 mg tablet 05-22 00:00: 00 02-23 00:00 :00 No [id number] 800mg Take 1 tablet by mouth every 8 (eight) hours as needed for Pain (scale 4-6) or Temp > 38.5 C. [facility] cefTRIAXone (ROCEPHIN) 1,000 mg in NaCl 0.9% (NS) 50 mL MINI-BAG 03-12 16:00: 00 03-12 16:18 :00 No 1000mg 1,000 mg, IV Piggyback, ONCE, 1 dose, Mon03/12/21 at 1100, 50 mL
Reas on for Anti-Infec tive: Empiric Therapy for Suspected Infection< br>Empiric Therapy Site: Urine
D uration of therapy: 72 hours [facility]y [facility] KCL (KLOR-CON M20) tablet 40 mEq 03-12 12:45: 00 03-12 13:07 :00 No 40meq 40 mEq, Oral, ONCE, 1 dose, Mon03/12/21 at 0745, Routine [facility] morpHINE injection 4 mg 03-12 07:16: 17 Yes 4mg 4 mg, Slow IV Push, Q4HPRN, Starting Mon03/12/21 at 0216, Until Discontinu ed, Routine, Pain (scale 7-10) [facility] pantoprazol e (PROTONIX) 40 mg in NaCl 0.9% (NS) 100 mL MINI-BAG 03-12 00:15: 00 Yes 40mg 40 mg, IV Piggyback, Q24H, First dose on Mon03/11/21 at 1915, Until Discontinu ed, 100 mL [facility] ondansetron 4 mg tablet 03-12 00:00: 00 03-23 04:59 :00 No [id number] 4mg Take 1 tablet by mouth every 8 (eight) hours for 10 days. [facility] cephALEXin 500 mg capsule 03-12 00:00: 00 03-16 04:59 :00 No [id number] 500mg Take 1 capsule by mouth 2 (two) times daily for 3 days. [facility] enoxaparin (LOVENOX) injection 30 mg 03-11 22:00: 00 Yes 30mg 30 mg, Subcutaneo us, DAILY, First dose on Mon03/11/21 at 1700, Until Discontinu ed, Routine [facility] D5W-LR IV infusion 1,000 mL 03-11 21:45: 00 Yes 1000mL at 125 mL/hr, IV Infusion, CONTINUOUS , Starting Elizabeth 03/11/21 at 1645, Until Discontinu ed, Routine [facility] morpHINE injection 4 mg 03-11 21:15: 00 03-11 20:32 :00 No 4mg 4 mg, Slow IV Push, ONCE, 1 dose, Elizabeth 03/11/21 at 1615, STAT [facility] ondansetron (ZOFRAN (PF)) injection 4 mg 03-11 20:38: 54 Yes 4mg 4 mg, Slow IV Push, Q6HPRN, Starting Elizabeth 03/11/21 at 1538, Until Discontinu ed, Routine, Nausea and Vomiting (N/V) [facility] acetaminoph en-codeine (TYLENOL #3) 300-30 mg tablet 1 tablet 03-11 20:38: 49 03-13 20:37 :49 No 1{tbl} 1 tablet, Oral, Q6HPRN, Starting Elizabeth 03/11/21 at 1538, Until 03/13/21 at 1537, Routine, Pain (scale 4-6) [facility] acetaminoph en (TYLENOL) tablet 650 mg 03-11 20:38: 42 Yes 650mg 650 mg, Oral, Q6HPRN, Starting Elizabeth 03/11/21 at 1538, Until Discontinu ed, Routine, Pain (scale 1-3) [facility] cefTRIAXone (ROCEPHIN) 1,000 mg in NaCl 0.9% (NS) 50 mL MINI-BAG 03-11 18:00: 00 03-11 17:41 :00 No 1000mg 1,000 mg, IV Piggyback, ONCE, 1 dose, Elizabeth 03/11/21 at 1300, 50 mL
Reas on for Anti-Infec tive: Empiric Therapy for Suspected Infection< br>Empiric Therapy Site: Abdominal< br>Duratio n of therapy: 72 hours [facility] iopamidol (ISOVUE 370-500 mL) injection 120 mL 03-11 17:00: 00 03-11 17:00 :00 No [id number] 120mL 120 mL, Intravenou s, ONCE, 1 dose, Elizabeth 03/11/21 at 1200, Routine [facility] morpHINE injection 4 mg 03-11 16:45: 00 03-11 15:43 :00 No 4mg 4 mg, Slow IV Push, ONCE, 1 dose, Elizabeth 03/11/21 at 1145, STAT [facility] ondansetron (ZOFRAN (PF)) injection 4 mg 03-11 16:30: 00 03-11 15:41 :00 No 4mg 4 mg, Slow IV Push, ONCE, 1 dose, Elizabeth 03/11/21 at 1130, [facility] NaCl 0.9% (NS) bolus infusion 1,000 mL 03-11 16:30: 00 03-11 19:19 :00 No 1000mL at 999 mL/hr, 1,000 mL, IV Infusion, ONCE, 1 dose, Elizabeth 03/11/21 at 1130, STAT [facility] sodium chloride (NS) injection 5 mL 03-11 14:57: 42 Yes 5mL 5 mL, Intravenou s, PRN, Starting Elizabeth 03/11/21 at 0957, Until Discontinu ed, Routine, IV line flushing [facility] codeine-gua ifenesin (ROBITUSSIN AC) 10-100 mg/5 mL solution 10 mL 03-06 05:00: 00 03-06 04:26 :00 No 10mL 10 mL, Oral, ONCE, 1 dose, [facility]06/21 [facility] 0000[facility]DECAD[facility] PHOSPHATE[facility] injection 10 mg 03-06 05:00: 00 03-06 04:19 :00 No 10mg 10 mg, Intramuscu lar, ONCE, 1 dose, 03/06/21 at 0000, STAT [facility] methylPREDN ISolone (MEDROL, TILA,) 4 mg tablets 03-06 00:00: 00 Yes [id number] Take by mouth SEE-INSTRU CTIONS. follow package directions [facility] azithromyci n 250 mg tablet 03-06 00:00: 00 Yes [id number] 250mg Take 1 tablet by mouth daily. Take 500 mg day 1, then 250 mg days 2 to 5. [facility] albuterol 90 mcg/actuati on inhaler 03-06 00:00: 00 Yes [id number] 2{puff} Inhale 2 Puffs every 4 (four) hours as needed for Wheezing or Shortness of Breath. [facility] albuterol 90 mcg/actuati on inhaler 03-06 00:00: 00 Yes [id number] 2{puff} Inhale 2 Puffs every 4 (four) hours as needed for Wheezing or Shortness of Breath. [facility] albuterol 90 mcg/actuati on inhaler 03-06 00:00: 00 Yes [id number] 2{puff} Inhale 2 Puffs every 4 (four) hours as needed for Wheezing or Shortness of Breath. [facility] albuterol 90 mcg/actuati on inhaler 03-06 00:00: 00 05-22 00:00 :00 No [id number] 2{puff} Inhale 2 Puffs every 4 (four) hours as needed for Wheezing or Shortness of Breath. [facility] codeine-gua ifenesin 10-100 mg/5 mL solution 03-06 00:00: 00 03-14 04:59 :00 No [id number] 10mL Take 10 mL by mouth every 6 (six) hours as needed for Cough for up to 7 days. Indication s: acute pain [facility] methylPREDN ISolone (MEDROL, TILA,) 4 mg tablets 03-06 00:00: 00 03-12 00:00 :00 No [id number] Take by mouth SEE-INSTRU CTIONS. follow package directions [facility] azithromyci n 250 mg tablet 03-06 00:00: 03-12 00:00 :00 No [id number] 250mg Take 1 tablet by mouth daily. Take 500 mg day 1, then 250 mg days 2 to 5. [facility] codeine-gua ifenesin 10-100 mg/5 mL solution 03-06 00:00: 00 03-12 00:00 :00 No [id number] 10mL Take 10 mL by mouth every 6 (six) hours as needed for Cough for up to 7 days. Indication s: acute pain [facility] benzonatate 100 mg capsule 02-24 00:00: 00 Yes [id number] 100mg Take 1 capsule by mouth 3 (three) times daily as needed for Cough. [facility] benzonatate 100 mg capsule 02-24 00:00: 00 Yes [id number] 100mg Take 1 capsule by mouth 3 (three) times daily as needed for Cough. [facility] benzonatate 100 mg capsule 02-24 00:00: 00 03-12 00:00 :00 No [id number] 100mg Take 1 capsule by mouth 3 (three) times daily as needed for Cough. [facility] predniSONE 20 mg tablet 02-24 00:00: 00 03-01 04:59 :00 No [id number] 20mg Take 1 tablet by mouth 2 (two) times daily for 4 days. [facility] medroxyPROG ESTERone (DEPO-PROVE RA) injection 150 mg 2018-10 15:00: 00 06-30 14:59 :00 No [id number] 150mg [facility] medroxyPROG ESTERone (DEPO-PROVE RA) injection 150 mg 2018-10 15:00: 00 06-30 14:59 :00 No [id number] 150mg 150 mg, Intramuscu lar, [id number], 4 doses, First dose on Mon07/30/19 at 1000, Last dose on Mon04/07/20 at 1000, Routine [facility] traMADOL (ULTRAM) 50 mg tablet 03-24 00:00: 00 Yes 50mg Take 1 tablet by mouth every 6 (six) hours as needed for Pain (scale 4-6). [facility] traMADOL (ULTRAM) 50 mg tablet 03-24 00:00: 00 Yes 50mg Take 1 tablet by mouth every 6 (six) hours as needed for Pain (scale 4-6). [facility] traMADOL (ULTRAM) 50 mg tablet 03-24 00:00: 00 Yes 50mg Take 1 tablet by mouth every 6 (six) hours as needed for Pain (scale 4-6). [facility] traMADOL (ULTRAM) 50 mg tablet 03-24 00:00: 00 03-12 00:00 :00 No 50mg Take 1 tablet by mouth every 6 (six) hours as needed for Pain (scale 4-6). [facility] Immunizations Ordered Immunization Name Filled Immunization Name Date Status Comments Source HPV 2018-10-18 00:00:00 Completed [facility] HPV9 2018-10-18 00:00:00 Completed [facility] HPV 2018-10-18 00:00:00 Completed [facility] HPV9 2018-10-18 00:00:00 Completed [facility] HPV 2018-10-18 00:00:00 Completed [facility] HPV9 2018-10-18 00:00:00 Completed [facility] HPV 2018-10-18 00:00:00 Completed [facility] HPV9 2018-10-18 00:00:00 Completed [facility] HPV 2018-10-18 00:00:00 Completed [facility] HPV9 2018-10-18 00:00:00 Completed [facility] HPV 2018-10-18 00:00:00 Completed [facility] HPV9 2018-10-18 00:00:00 Completed [facility] HPV 2018-10-18 00:00:00 Completed [facility] HPV9 2018-10-18 00:00:00 Completed [facility] HPV 2018-10-18 00:00:00 Completed [facility] HPV9 2018-10-18 00:00:00 Completed [facility] HPV 2018-10-18 00:00:00 Completed [facility] HPV9 2018-10-18 00:00:00 Completed [facility] HPV 2018-10-18 00:00:00 Completed [facility] HPV9 2018-10-18 00:00:00 Completed [facility] HPV 2018-07-18 00:00:00 Completed [facility] HPV9 2018-07-18 00:00:00 Completed [facility] HPV 2018-07-18 00:00:00 Completed [facility] HPV9 2018-07-18 00:00:00 Completed [facility] HPV 2018-07-18 00:00:00 Completed [facility] HPV9 2018-07-18 00:00:00 Completed [facility] HPV 2018-07-18 00:00:00 Completed [facility] HPV9 2018-07-18 00:00:00 Completed [facility] HPV 2018-07-18 00:00:00 Completed [facility] HPV9 2018-07-18 00:00:00 Completed [facility] HPV 2018-07-18 00:00:00 Completed [facility] HPV9 2018-07-18 00:00:00 Completed [facility] HPV 2018-07-18 00:00:00 Completed [facility] HPV9 2018-07-18 00:00:00 Completed [facility] HPV 2018-07-18 00:00:00 Completed [facility] HPV9 2018-07-18 00:00:00 Completed [facility] HPV 2018-07-18 00:00:00 Completed [facility] HPV9 2018-07-18 00:00:00 Completed [facility] HPV 2018-07-18 00:00:00 Completed [facility] HPV9 2018-07-18 00:00:00 Completed [facility] HPV 2015-05-22 00:00:00 Completed [facility] TDAP (ADACEL) VACCINE 2015-05-22 00:00:00 Completed [facility] HPV9 2015-05-22 00:00:00 Completed [facility] Meningococcal Polysaccharide (groups A, C, Y and W-135) conjugate vaccine (MCV4P) 2015-05-22 00:00:00 Completed [facility] HPV 2015-05-22 00:00:00 Completed [facility] TDAP (ADACEL) VACCINE 2015-05-22 00:00:00 Completed [facility] HPV9 2015-05-22 00:00:00 Completed [facility] Meningococcal Polysaccharide (groups A, C, Y and W-135) conjugate vaccine (MCV4P) 2015-05-22 00:00:00 Completed [facility] HPV 2015-05-22 00:00:00 Completed [facility] TDAP (ADACEL) VACCINE 2015-05-22 00:00:00 Completed [facility] HPV9 2015-05-22 00:00:00 Completed [facility] Meningococcal Polysaccharide (groups A, C, Y and W-135) conjugate vaccine (MCV4P) 2015-05-22 00:00:00 Completed [facility] HPV 2015-05-22 00:00:00 Completed [facility] TDAP (ADACEL) VACCINE 2015-05-22 00:00:00 Completed [facility] HPV9 2015-05-22 00:00:00 Completed [facility] Meningococcal Polysaccharide (groups A, C, Y and W-135) conjugate vaccine (MCV4P) 2015-05-22 00:00:00 Completed [facility] HPV 2015-05-22 00:00:00 Completed [facility] TDAP (ADACEL) VACCINE 2015-05-22 00:00:00 Completed [facility] HPV9 2015-05-22 00:00:00 Completed [facility] Meningococcal Polysaccharide (groups A, C, Y and W-135) conjugate vaccine (MCV4P) 2015-05-22 00:00:00 Completed [facility] HPV 2015-05-22 00:00:00 Completed [facility] TDAP (ADACEL) VACCINE 2015-05-22 00:00:00 Completed [facility] HPV9 2015-05-22 00:00:00 Completed [facility] Meningococcal Polysaccharide (groups A, C, Y and W-135) conjugate vaccine (MCV4P) 2015-05-22 00:00:00 Completed [facility] HPV 2015-05-22 00:00:00 Completed [facility] TDAP (ADACEL) VACCINE 2015-05-22 00:00:00 Completed [facility] HPV9 2015-05-22 00:00:00 Completed [facility] Meningococcal Polysaccharide (groups A, C, Y and W-135) conjugate vaccine (MCV4P) 2015-05-22 00:00:00 Completed [facility] HPV 2015-05-22 00:00:00 Completed [facility] TDAP (ADACEL) VACCINE 2015-05-22 00:00:00 Completed [facility] HPV9 2015-05-22 00:00:00 Completed [facility] Meningococcal Polysaccharide (groups A, C, Y and W-135) conjugate vaccine (MCV4P) 2015-05-22 00:00:00 Completed [facility] HPV 2015-05-22 00:00:00 Completed [facility] TDAP (ADACEL) VACCINE 2015-05-22 00:00:00 Completed [facility] HPV9 2015-05-22 00:00:00 Completed [facility] Meningococcal Polysaccharide (groups A, C, Y and W-135) conjugate vaccine (MCV4P) 2015-05-22 00:00:00 Completed [facility] HPV 2015-05-22 00:00:00 Completed [facility] TDAP (ADACEL) VACCINE 2015-05-22 00:00:00 Completed [facility] HPV9 2015-05-22 00:00:00 Completed [facility] Meningococcal Polysaccharide (groups A, C, Y and W-135) conjugate vaccine (MCV4P) 2015-05-22 00:00:00 Completed [facility] DTAP 2007-05-08 00:00:00 Completed [facility] HEPATITIS A 2007-05-08 00:00:00 Completed [facility] Polio (IPV/OPV) 2007-05-08 00:00:00 Completed [facility] Proquad (MMR/VARICELLA) 2007-05-08 00:00:00 Completed [facility] DTAP 2007-05-08 00:00:00 Completed [facility] HEPATITIS A 2007-05-08 00:00:00 Completed [facility] Polio (IPV/OPV) 2007-05-08 00:00:00 Completed [facility] Proquad (MMR/VARICELLA) 2007-05-08 00:00:00 Completed [facility] DTAP 2007-05-08 00:00:00 Completed [facility] HEPATITIS A 2007-05-08 00:00:00 Completed [facility] Polio (IPV/OPV) 2007-05-08 00:00:00 Completed [facility] Proquad (MMR/VARICELLA) 2007-05-08 00:00:00 Completed [facility] DTAP 2007-05-08 00:00:00 Completed [facility] HEPATITIS A 2007-05-08 00:00:00 Completed [facility] Polio (IPV/OPV) 2007-05-08 00:00:00 Completed [facility] Proquad (MMR/VARICELLA) 2007-05-08 00:00:00 Completed [facility] DTAP 2007-05-08 00:00:00 Completed [facility] HEPATITIS A 2007-05-08 00:00:00 Completed [facility] Polio (IPV/OPV) 2007-05-08 00:00:00 Completed [facility] Proquad (MMR/VARICELLA) 2007-05-08 00:00:00 Completed [facility] DTAP 2007-05-08 00:00:00 Completed [facility] HEPATITIS A 2007-05-08 00:00:00 Completed [facility] Polio (IPV/OPV) 2007-05-08 00:00:00 Completed [facility] Proquad (MMR/VARICELLA) 2007-05-08 00:00:00 Completed [facility] DTAP 2007-05-08 00:00:00 Completed [facility] HEPATITIS A 2007-05-08 00:00:00 Completed [facility] Polio (IPV/OPV) 2007-05-08 00:00:00 Completed [facility] Proquad (MMR/VARICELLA) 2007-05-08 00:00:00 Completed [facility] DTAP 2007-05-08 00:00:00 Completed [facility] HEPATITIS A 2007-05-08 00:00:00 Completed [facility] Polio (IPV/OPV) 2007-05-08 00:00:00 Completed [facility] Proquad (MMR/VARICELLA) 2007-05-08 00:00:00 Completed [facility] DTAP 2007-05-08 00:00:00 Completed [facility] HEPATITIS A 2007-05-08 00:00:00 Completed [facility] Polio (IPV/OPV) 2007-05-08 00:00:00 Completed [facility] Proquad (MMR/VARICELLA) 2007-05-08 00:00:00 Completed [facility] DTAP 2007-05-08 00:00:00 Completed [facility] HEPATITIS A 2007-05-08 00:00:00 Completed [facility] Polio (IPV/OPV) 2007-05-08 00:00:00 Completed [facility] Proquad (MMR/VARICELLA) 2007-05-08 00:00:00 Completed [facility] DTAP 2006-02-09 00:00:00 Completed [facility] HEPATITIS A 2006-02-09 00:00:00 Completed [facility] Pneumococcal 13 Conjugate, PCV13 (Prevnar 13) 2006-02-09 00:00:00 Completed [facility] DTAP 2006-02-09 00:00:00 Completed [facility] HEPATITIS A 2006-02-09 00:00:00 Completed [facility] Pneumococcal 13 Conjugate, PCV13 (Prevnar 13) 2006-02-09 00:00:00 Completed [facility] DTAP 2006-02-09 00:00:00 Completed [facility] HEPATITIS A 2006-02-09 00:00:00 Completed [facility] Pneumococcal 13 Conjugate, PCV13 (Prevnar 13) 2006-02-09 00:00:00 Completed [facility] DTAP 2006-02-09 00:00:00 Completed [facility] HEPATITIS A 2006-02-09 00:00:00 Completed [facility] Pneumococcal 13 Conjugate, PCV13 (Prevnar 13) 2006-02-09 00:00:00 Completed [facility] DTAP 2006-02-09 00:00:00 Completed [facility] HEPATITIS A 2006-02-09 00:00:00 Completed [facility] Pneumococcal 13 Conjugate, PCV13 (Prevnar 13) 2006-02-09 00:00:00 Completed [facility] DTAP 2006-02-09 00:00:00 Completed [facility] HEPATITIS A 2006-02-09 00:00:00 Completed [facility] Pneumococcal 13 Conjugate, PCV13 (Prevnar 13) 2006-02-09 00:00:00 Completed [facility] DTAP 2006-02-09 00:00:00 Completed [facility] HEPATITIS A 2006-02-09 00:00:00 Completed [facility] Pneumococcal 13 Conjugate, PCV13 (Prevnar 13) 2006-02-09 00:00:00 Completed [facility] DTAP 2006-02-09 00:00:00 Completed [facility] HEPATITIS A 2006-02-09 00:00:00 Completed [facility] Pneumococcal 13 Conjugate, PCV13 (Prevnar 13) 2006-02-09 00:00:00 Completed [facility] DTAP 2006-02-09 00:00:00 Completed [facility] HEPATITIS A 2006-02-09 00:00:00 Completed [facility] Pneumococcal 13 Conjugate, PCV13 (Prevnar 13) 2006-02-09 00:00:00 Completed [facility] DTAP 2006-02-09 00:00:00 Completed [facility] HEPATITIS A 2006-02-09 00:00:00 Completed [facility] Pneumococcal 13 Conjugate, PCV13 (Prevnar 13) 2006-02-09 00:00:00 Completed [facility] DTAP 2005-03-14 00:00:00 Completed [facility] Hep B, Adol or Pedi Dosage 2005-03-14 00:00:00 Completed [facility] DTAP 2005-03-14 00:00:00 Completed [facility] Hep B, Adol or Pedi Dosage 2005-03-14 00:00:00 Completed [facility] DTAP 2005-03-14 00:00:00 Completed [facility] Hep B, Adol or Pedi Dosage 2005-03-14 00:00:00 Completed [facility] DTAP 2005-03-14 00:00:00 Completed [facility] Hep B, Adol or Pedi Dosage 2005-03-14 00:00:00 Completed [facility] DTAP 2005-03-14 00:00:00 Completed [facility] Hep B, Adol or Pedi Dosage 2005-03-14 00:00:00 Completed [facility] DTAP 2005-03-14 00:00:00 Completed [facility] Hep B, Adol or Pedi Dosage 2005-03-14 00:00:00 Completed [facility] DTAP 2005-03-14 00:00:00 Completed [facility] Hep B, Adol or Pedi Dosage 2005-03-14 00:00:00 Completed [facility] DTAP 2005-03-14 00:00:00 Completed [facility] Hep B, Adol or Pedi Dosage 2005-03-14 00:00:00 Completed [facility] DTAP 2005-03-14 00:00:00 Completed [facility] Hep B, Adol or Pedi Dosage 2005-03-14 00:00:00 Completed [facility] DTAP 2005-03-14 00:00:00 Completed [facility] Hep B, Adol or Pedi Dosage 2005-03-14 00:00:00 Completed [facility] DTAP 2004-08-04 00:00:00 Completed [facility] HIB 3 Dose Schedule 2004-08-04 00:00:00 Completed [facility] Polio (IPV/OPV) 2004-08-04 00:00:00 Completed [facility] DTAP 2004-08-04 00:00:00 Completed [facility] HIB 3 Dose Schedule 2004-08-04 00:00:00 Completed [facility] Polio (IPV/OPV) 2004-08-04 00:00:00 Completed [facility] DTAP 2004-08-04 00:00:00 Completed [facility] HIB 3 Dose Schedule 2004-08-04 00:00:00 Completed [facility] Polio (IPV/OPV) 2004-08-04 00:00:00 Completed [facility] DTAP 2004-08-04 00:00:00 Completed [facility] HIB 3 Dose Schedule 2004-08-04 00:00:00 Completed [facility] Polio (IPV/OPV) 2004-08-04 00:00:00 Completed [facility] DTAP 2004-08-04 00:00:00 Completed [facility] HIB 3 Dose Schedule 2004-08-04 00:00:00 Completed [facility] Polio (IPV/OPV) 2004-08-04 00:00:00 Completed [facility] DTAP 2004-08-04 00:00:00 Completed [facility] HIB 3 Dose Schedule 2004-08-04 00:00:00 Completed [facility] Polio (IPV/OPV) 2004-08-04 00:00:00 Completed [facility] DTAP 2004-08-04 00:00:00 Completed [facility] HIB 3 Dose Schedule 2004-08-04 00:00:00 Completed [facility] Polio (IPV/OPV) 2004-08-04 00:00:00 Completed [facility] DTAP 2004-08-04 00:00:00 Completed [facility] HIB 3 Dose Schedule 2004-08-04 00:00:00 Completed [facility] Polio (IPV/OPV) 2004-08-04 00:00:00 Completed [facility] DTAP 2004-08-04 00:00:00 Completed [facility] HIB 3 Dose Schedule 2004-08-04 00:00:00 Completed [facility] Polio (IPV/OPV) 2004-08-04 00:00:00 Completed [facility] DTAP 2004-08-04 00:00:00 Completed [facility] HIB 3 Dose Schedule 2004-08-04 00:00:00 Completed [facility] Polio (IPV/OPV) 2004-08-04 00:00:00 Completed [facility] DTAP 2003-11-20 00:00:00 Completed [facility] HIB 3 Dose Schedule 2003-11-20 00:00:00 Completed [facility] Hep B, Adol or Pedi Dosage 2003-11-20 00:00:00 Completed [facility] MMR 2003-11-20 00:00:00 Completed [facility] Polio (IPV/OPV) 2003-11-20 00:00:00 Completed [facility] Varicella (varivax)(chicken pox) 2003-11-20 00:00:00 Completed [facility] DTAP 2003-11-20 00:00:00 Completed [facility] HIB 3 Dose Schedule 2003-11-20 00:00:00 Completed [facility] Hep B, Adol or Pedi Dosage 2003-11-20 00:00:00 Completed [facility] MMR 2003-11-20 00:00:00 Completed [facility] Polio (IPV/OPV) 2003-11-20 00:00:00 Completed [facility] Varicella (varivax)(chicken pox) 2003-11-20 00:00:00 Completed [facility] DTAP 2003-11-20 00:00:00 Completed [facility] HIB 3 Dose Schedule 2003-11-20 00:00:00 Completed [facility] Hep B, Adol or Pedi Dosage 2003-11-20 00:00:00 Completed [facility] MMR 2003-11-20 00:00:00 Completed [facility] Polio (IPV/OPV) 2003-11-20 00:00:00 Completed [facility] Varicella (varivax)(chicken pox) 2003-11-20 00:00:00 Completed [facility] DTAP 2003-11-20 00:00:00 Completed [facility] HIB 3 Dose Schedule 2003-11-20 00:00:00 Completed [facility] Hep B, Adol or Pedi Dosage 2003-11-20 00:00:00 Completed [facility] MMR 2003-11-20 00:00:00 Completed [facility] Polio (IPV/OPV) 2003-11-20 00:00:00 Completed [facility] Varicella (varivax)(chicken pox) 2003-11-20 00:00:00 Completed [facility] DTAP 2003-11-20 00:00:00 Completed [facility] HIB 3 Dose Schedule 2003-11-20 00:00:00 Completed [facility] Hep B, Adol or Pedi Dosage 2003-11-20 00:00:00 Completed [facility] MMR 2003-11-20 00:00:00 Completed [facility] Polio (IPV/OPV) 2003-11-20 00:00:00 Completed [facility] Varicella (varivax)(chicken pox) 2003-11-20 00:00:00 Completed [facility] DTAP 2003-11-20 00:00:00 Completed [facility] HIB 3 Dose Schedule 2003-11-20 00:00:00 Completed [facility] Hep B, Adol or Pedi Dosage 2003-11-20 00:00:00 Completed [facility] MMR 2003-11-20 00:00:00 Completed [facility] Polio (IPV/OPV) 2003-11-20 00:00:00 Completed [facility] Varicella (varivax)(chicken pox) 2003-11-20 00:00:00 Completed [facility] DTAP 2003-11-20 00:00:00 Completed [facility] HIB 3 Dose Schedule 2003-11-20 00:00:00 Completed [facility] Hep B, Adol or Pedi Dosage 2003-11-20 00:00:00 Completed [facility] MMR 2003-11-20 00:00:00 Completed [facility] Polio (IPV/OPV) 2003-11-20 00:00:00 Completed [facility] Varicella (varivax)(chicken pox) 2003-11-20 00:00:00 Completed [facility] DTAP 2003-11-20 00:00:00 Completed [facility] HIB 3 Dose Schedule 2003-11-20 00:00:00 Completed [facility] Hep B, Adol or Pedi Dosage 2003-11-20 00:00:00 Completed [facility] MMR 2003-11-20 00:00:00 Completed [facility] Polio (IPV/OPV) 2003-11-20 00:00:00 Completed [facility] Varicella (varivax)(chicken pox) 2003-11-20 00:00:00 Completed [facility] DTAP 2003-11-20 00:00:00 Completed [facility] HIB 3 Dose Schedule 2003-11-20 00:00:00 Completed [facility] Hep B, Adol or Pedi Dosage 2003-11-20 00:00:00 Completed [facility] MMR 2003-11-20 00:00:00 Completed [facility] Polio (IPV/OPV) 2003-11-20 00:00:00 Completed [facility] Varicella (varivax)(chicken pox) 2003-11-20 00:00:00 Completed [facility] DTAP 2003-11-20 00:00:00 Completed [facility] HIB 3 Dose Schedule 2003-11-20 00:00:00 Completed [facility] Hep B, Adol or Pedi Dosage 2003-11-20 00:00:00 Completed [facility] MMR 2003-11-20 00:00:00 Completed [facility] Polio (IPV/OPV) 2003-11-20 00:00:00 Completed [facility] Varicella (varivax)(chicken pox) 2003-11-20 00:00:00 Completed [facility] Hep B, Adol or Pedi Dosage 2003-02-25 00:00:00 Completed [facility] Polio (IPV/OPV) 2003-02-25 00:00:00 Completed [facility] Hep B, Adol or Pedi Dosage 2003-02-25 00:00:00 Completed [facility] Polio (IPV/OPV) 2003-02-25 00:00:00 Completed [facility] Hep B, Adol or Pedi Dosage 2003-02-25 00:00:00 Completed [facility] Polio (IPV/OPV) 2003-02-25 00:00:00 Completed [facility] Hep B, Adol or Pedi Dosage 2003-02-25 00:00:00 Completed [facility] Polio (IPV/OPV) 2003-02-25 00:00:00 Completed [facility] Hep B, Adol or Pedi Dosage 2003-02-25 00:00:00 Completed [facility] Polio (IPV/OPV) 2003-02-25 00:00:00 Completed [facility] Hep B, Adol or Pedi Dosage 2003-02-25 00:00:00 Completed [facility] Polio (IPV/OPV) 2003-02-25 00:00:00 Completed [facility] Hep B, Adol or Pedi Dosage 2003-02-25 00:00:00 Completed [facility] Polio (IPV/OPV) 2003-02-25 00:00:00 Completed [facility] Hep B, Adol or Pedi Dosage 2003-02-25 00:00:00 Completed [facility] Polio (IPV/OPV) 2003-02-25 00:00:00 Completed [facility] Hep B, Adol or Pedi Dosage 2003-02-25 00:00:00 Completed [facility] Polio (IPV/OPV) 2003-02-25 00:00:00 Completed [facility] Hep B, Adol or Pedi Dosage 2003-02-25 00:00:00 Completed [facility] Polio (IPV/OPV) 2003-02-25 00:00:00 Completed [facility] Hep B, Adol or Pedi Dosage 2002 00:00:00 Completed [facility] Hep B, Adol or Pedi Dosage 2002 00:00:00 Completed [facility] Hep B, Adol or Pedi Dosage 2002 00:00:00 Completed [facility] Hep B, Adol or Pedi Dosage 2002 00:00:00 Completed [facility] Hep B, Adol or Pedi Dosage 2002 00:00:00 Completed [facility] Hep B, Adol or Pedi Dosage 2002 00:00:00 Completed [facility] Hep B, Adol or Pedi Dosage 2002 00:00:00 Completed [facility] Hep B, Adol or Pedi Dosage 2002 00:00:00 Completed [facility] Hep B, Adol or Pedi Dosage 2002 00:00:00 Completed [facility] Hep B, Adol or Pedi Dosage 2002 00:00:00 Completed [facility] TDAP (ADACEL) VACCINE Unknown Completed [facility] HPV9 Unknown Completed [facility] Meningococcal Polysaccharide (groups A, C, Y and W-135) conjugate vaccine (MCV4P) Unknown Completed [facility] HPV9 Unknown Completed [facility] HPV9 Unknown Completed [facility] DTAP Unknown Completed [facility] DTAP Unknown Completed [facility] DTAP Unknown Completed [facility] DTAP Unknown Completed [facility] DTAP Unknown Completed [facility] HIB 3 Dose Schedule Unknown Completed [facility] HIB 3 Dose Schedule Unknown Completed [facility] HEPATITIS A Unknown Completed [facility] HEPATITIS A Unknown Completed [facility] Hep B, Adol or Pedi Dosage Unknown Completed [facility] Hep B, Adol or Pedi Dosage Unknown Completed [facility] Hep B, Adol or Pedi Dosage Unknown Completed [facility] Hep B, Adol or Pedi Dosage Unknown Completed [facility] HPV Unknown Completed [facility] HPV Unknown Completed [facility] HPV Unknown Completed [facility] MMR Unknown Completed [facility] Pneumococcal 13 Conjugate, PCV13 (Prevnar 13) Unknown Completed [facility] Polio (IPV/OPV) Unknown Completed [facility] Polio (IPV/OPV) Unknown Completed [facility] Polio (IPV/OPV) Unknown Completed [facility] Polio (IPV/OPV) Unknown Completed [facility] Proquad (MMR/VARICELLA) Unknown Completed [facility] Varicella (varivax)(chicken pox) Unknown Completed [facility] TDAP (ADACEL) VACCINE Unknown Completed [facility] HPV9 Unknown Completed [facility] Meningococcal Polysaccharide (groups A, C, Y and W-135) conjugate vaccine (MCV4P) Unknown Completed [facility] HPV9 Unknown Completed [facility] HPV9 Unknown Completed [facility] DTAP Unknown Completed [facility] DTAP Unknown Completed [facility] DTAP Unknown Completed [facility] DTAP Unknown Completed [facility] DTAP Unknown Completed [facility] HIB 3 Dose Schedule Unknown Completed [facility] HIB 3 Dose Schedule Unknown Completed [facility] HEPATITIS A Unknown Completed [facility] HEPATITIS A Unknown Completed [facility] Hep B, Adol or Pedi Dosage Unknown Completed [facility] Hep B, Adol or Pedi Dosage Unknown Completed [facility] Hep B, Adol or Pedi Dosage Unknown Completed [facility] Hep B, Adol or Pedi Dosage Unknown Completed [facility] HPV Unknown Completed [facility] HPV Unknown Completed [facility] HPV Unknown Completed [facility] MMR Unknown Completed [facility] Pneumococcal 13 Conjugate, PCV13 (Prevnar 13) Unknown Completed [facility] Polio (IPV/OPV) Unknown Completed [facility] Polio (IPV/OPV) Unknown Completed [facility] Polio (IPV/OPV) Unknown Completed [facility] Polio (IPV/OPV) Unknown Completed [facility] Proquad (MMR/VARICELLA) Unknown Completed [facility] Varicella (varivax)(chicken pox) Unknown Completed [facility] Vital Signs Vital Name Observation Time Observation Value Comments S ource Systolic blood pressure 2023-05-23 19:12:00 122 mm[Hg] [facility] Diastolic blood pressure 2023-05-23 19:12:00 98 mm[Hg] [facility] Heart rate 2023-05-23 19:12:00 68 /min [facility] Body temperature 2023-05-23 19:12:00 36.61 Senait [facility] Respiratory rate 2023-05-23 19:12:00 18 /min [facility] Body height 2023-05-23 19:12:00 162.6 cm [facility] Body weight 2023-05-23 19:12:00 95.255 kg [facility] BMI 2023-05-23 19:12:00 36.05 kg/m2 [facility] Oxygen saturation in Arterial blood by Pulse oximetry 2023-05-23 19:12:00 99 /min [facility] Systolic blood pressure 2023-02-24 00:41:00 112 mm[Hg] [facility] Diastolic blood pressure 2023-02-24 00:41:00 74 mm[Hg] [facility] Heart rate 2023-02-24 00:41:00 84 /min [facility] Body temperature 2023-02-24 00:41:00 36.94 Senait [facility] Respiratory rate 2023-02-24 00:41:00 20 /min [facility] Oxygen saturation in Arterial blood by Pulse oximetry 2023-02-24 00:41:00 98 /min [facility] Body height 2023-02-23 22:43:00 162.6 cm [facility] Body weight 2023-02-23 22:43:00 95.255 kg [facility] BMI 2023-02-23 22:43:00 36.05 kg/m2 [facility] Systolic blood pressure 2021-10-19 04:27:00 121 mm[Hg] [facility] Diastolic blood pressure 2021-10-19 04:27:00 79 mm[Hg] [facility] Heart rate 2021-10-19 04:27:00 107 /min [facility] Body temperature 2021-10-19 04:27:00 38.72 Senait [facility] Respiratory rate 2021-10-19 04:27:00 18 /min [facility] Body height 2021-10-19 04:27:00 160 cm [facility] Body weight 2021-10-19 04:27:00 90.719 kg [facility] BMI 2021-10-19 04:27:00 35.43 kg/m2 [facility] Body mass index (BMI) [Percentile] Per age and sex 2021-10-19 04:27:00 97.54 % [facility] Oxygen saturation in Arterial blood by Pulse oximetry 2021-10-19 04:27:00 99 /min [facility] Systolic blood pressure 2021-05-22 10:55:00 118 mm[Hg] [facility] Diastolic blood pressure 2021-05-22 10:55:00 70 mm[Hg] [facility] Heart rate 2021-05-22 10:55:00 105 /min [facility] Body temperature 2021-05-22 10:55:00 38.17 Senait [facility] Respiratory rate 2021-05-22 10:55:00 18 /min [facility] Body height 2021-05-22 10:55:00 162.6 cm [facility] Body weight 2021-05-22 10:55:00 97.523 kg [facility] BMI 2021-05-22 10:55:00 36.90 kg/m2 [facility] Oxygen saturation in Arterial blood by Pulse oximetry 2021-05-22 10:55:00 97 /min [facility] Systolic blood pressure 2021-03-12 12:22:00 102 mm[Hg] [facility] Diastolic blood pressure 2021-03-12 12:22:00 57 mm[Hg] [facility] Heart rate 2021-03-12 12:22:00 69 /min [facility] Body temperature 2021-03-12 12:22:00 37.06 Senait [facility] Respiratory rate 2021-03-12 12:22:00 18 /min [facility] Oxygen saturation in Arterial blood by Pulse oximetry 2021-03-12 12:22:00 97 /min [facility] Body height 2021-03-11 20:55:00 165.1 cm [facility] Body weight 2021-03-11 20:55:00 105.461 kg [facility] BMI 2021-03-11 20:55:00 38.69 kg/m2 [facility] Systolic blood pressure 2021-03-06 05:21:03 135 mm[Hg] [facility] Diastolic blood pressure 2021-03-06 05:21:03 82 mm[Hg] [facility] Heart rate 2021-03-06 05:21:03 96 /min [facility] Body temperature 2021-03-06 05:21:03 37.22 Senait [facility] Respiratory rate 2021-03-06 05:21:03 20 /min [facility] Oxygen saturation in Arterial blood by Pulse oximetry 2021-03-06 05:21:03 98 /min [facility] Body height 2021-03-06 03:22:00 165.1 cm [facility] Body weight 2021-03-06 03:22:00 90.719 kg [facility] BMI 2021-03-06 03:22:00 33.28 kg/m2 [facility] Heart rate 2021-02-25 02:31:00 108 /min [facility] Systolic blood pressure 2021-02-25 01:21:00 123 mm[Hg] [facility] Diastolic blood pressure 2021-02-25 01:21:00 82 mm[Hg] [facility] Body temperature 2021-02-25 01:21:00 37.61 Senait [facility] Respiratory rate 2021-02-25 01:21:00 22 /min [facility] Body weight 2021-02-25 01:21:00 90.719 kg [facility] Oxygen saturation in Arterial blood by Pulse oximetry 2021-02-25 01:21:00 99 /min [facility] Systolic blood pressure 2019-10-22 15:39:00 113 mm[Hg] [facility] Diastolic blood pressure 2019-10-22 15:39:00 74 mm[Hg] [facility] Heart rate 2019-10-22 15:39:00 82 /min [facility] Body temperature 2019-10-22 15:39:00 36.83 Senait [facility] Respiratory rate 2019-10-22 15:39:00 16 /min [facility] Body height 2019-10-22 15:39:00 160 cm [facility] Body weight 2019-10-22 15:39:00 103.023 kg [facility] BMI 2019-10-22 15:39:00 40.23 kg/m2 [facility] Procedures Procedure Date / Time Performed Performing Clinicia n Source POCT TEST 2023-05-23 22:15:00 Tamiko Reynaga [facility] LIPASE 2023-05-23 20:07:00 Jennifer Reynaga [facility] COMP. METABOLIC PANEL (33490) 2023-05-23 20:07:00 Jennifer Reynaga [facility] CBC WITH DIFF 2023-05-23 20:07:00 Jennifer Reynaga [facility] URINALYSIS 2023-05-23 20:07:00 Jennifer Reynaga [facility] ASSIGNMENT OF BENEFITS 2023-05-23 19:45:58 Docto r Unassigned, Wimer [facility] ASSIGNMENT OF BENEFITS 2023-02-23 23:29:30 Docto r Unassigned, Wimer [facility] RAPID STREP SCREEN FOR GROUP A 2023-02-23 23:18:00 Thelma Garcia [facility] RAPID INFLUENZA A/B 2023-02-23 23:18:00 Jatinder Garcia [facility] COVID-19 (ID NOW RAPID TESTING) 2023-02-23 23:18:00 Thelma Garcia [facility] CONSENT/REFUSAL FOR DIAGNOSIS AND TREATMENT 2023-02-23 22:27:31 Doctor Unassigned, W[facility] RAPID INFLUENZA A/B 2021-10-19 04:38:00 Micha Vanessa [facility] NOTICE OF PRIVACY PRACTICES 2021-10-19 04:25:24 Doctor Unassigned, [facility] CONSENT/REFUSAL FOR DIAGNOSIS AND TREATMENT 2021-10-19 04:25:07 Doctor Unassigned, [facility] URINALYSIS 2021-05-22 11:31:00 Suzette Michele [facility] POCT TEST 2021-05-22 11:31:00 Suzette Michele [facility] COVID-19 (ID NOW RAPID TESTING) 2021-05-22 11:17:00 Suzette Michele [facility] CONSENT/REFUSAL FOR DIAGNOSIS AND TREATMENT 2021-05-22 10:19:37 Doctor Unassigned, [facility] MAGNESIUM 2021-03-12 09:44:00 Anatoly Valdovinos [facility] BASIC METABOLIC PANEL (NA, K, CL, CO2, GLUCOSE, BUN, CREATININE, CA) 2021-03-12 09:44:00 Anatoly Valdovinos [facility] CBC WITH DIFF 2021-03-12 09:44:00 Anatoly Valdovinos [facility] COVID-19 (ID NOW RAPID TESTING) 2021-03-11 17:06:00 Solange Ford [facility] BLOOD CULTURE SCREEN 2021-03-11 17:05:00 Ashok Ford [facility] URINE CULTURE 2021-03-11 17:05:00 Solange Ford [facility] LACTIC ACID WHOLE BLOOD 2021-03-11 17:04:00 Solange Ford [facility] BLOOD CULTURE SCREEN 2021-03-11 16:35:00 Ashok Ford [facility] CT ABDOMEN PELVIS W CONTRAST 2021-03-11 15:56:47 Solange Ford [facility] LIPASE 2021-03-11 15:07:00 [facility] COMP. METABOLIC PANEL ([id number]) 2021-03-11 15:07:00 Solange Ford [facility] CBC WITH DIFF 2021-03-11 15:07:00 Solange Ford [facility] URINALYSIS 2021-03-11 15:07:00 Solange Ford [facility] POCT TEST 2021-03-11 15:06:00 Tatiana Ford [facility] NOTICE OF PRIVACY PRACTICES 2021-03-11 14:51:22 Doctor Unassigned, [facility] CONSENT/REFUSAL FOR DIAGNOSIS AND TREATMENT 2021-03-11 14:50:52 Doctor Unassigned, [facility] XR CHEST 2 VW 2021-03-06 04:04:44 Jennifer Reynaga [facility] NOTICE OF PRIVACY PRACTICES 2021-03-06 03:15:08 Doctor Unassigned, W[facility] CONSENT/REFUSAL FOR DIAGNOSIS AND TREATMENT 2021-03-06 03:14:52 Doctor Unassigned, [facility] COVID-19 (ID NOW RAPID TESTING) 2021-02-25 01:56:00 Micha Vanessa [facility] NOTICE OF PRIVACY PRACTICES 2021-02-25 01:15:24 Doctor Unassigned, [facility] CONSENT/REFUSAL FOR DIAGNOSIS AND TREATMENT 2021-02-25 01:10:32 Doctor Unassigned, [facility] Encounters Start Date/Time End Date/Time Encounter Type Admission Type Attending [facility] Care Facility Care Department Encounter ID Source 2021-08-08 22:53:54 Emergency [facility] [id number] [facility] 2021-08-08 22:05:35 Emergency [facility] [id number] [facility] 2021-08-08 20:09:33 Emergency [facility] [id number] [facility] 2023-05-23 14:13:00 2023-05-23 18:16:00 Emergency X [facility] [id number] [facility] 2023-05-23 14:13:00 2023-05-23 18:16:00 Emergency Jennifer Reynaga [facility] 1..114 350.1.13.10 4.2.7.2.686 [id number] [facility] 2023-02-23 17:44:00 2023-02-23 19:46:00 Emergency X THELMA GARCIA [facility] [id number] [facility] 2023-02-23 17:44:00 2023-02-23 19:46:00 Emergency Thelma Garcia [facility] 1..114 350.1.13.10 4.2.7.2.686 [id number] [facility] 2021-10-20 00:00:00 2021-10-20 00:00:00 Patient Secure Msg Gissell Ornelas [facility] CRM SYSTEM ADMINISTRATOR [facility] 1.0.114 350.1.13.10 4.2.7.2.686 [id number] [facility] 2021-10-19 00:00:00 2021-10-19 00:00:00 Patient Secure Msg Doctor Unassigned, Wimer [facility] 1.0.114 350.1.13.10 4.2.7.2.686 [id number] [facility] 2021-10-19 00:00:00 2021-10-19 00:00:00 Patient Secure Rachel Sanders [facility] SYSTEM ADMINISTRATOR [facility] 1.2.840.114 350.1.13.10 4.2.7.2.686 [id number] [facility] 2021-10-18 22:40:00 2021-10-18 23:11:00 Emergency X OTF MICHA [facility] [id number] [facility] 2021-10-18 22:40:00 2021-10-18 23:11:00 Emergency VanessaMicha wright [facility] 1.2.840.114 350.1.13.10 4.2.7.2.686 [id number] [facility] 2021-05-22 05:58:00 2021-05-22 07:44:00 Emergency Suzette Michele [facility] 1.2840.114 350.1.13.10 4.2.7.2.686 [id number] [facility] 2021-05-22 05:58:00 2021-05-22 07:44:00 Emergency X DORIANJOHNNYNATY SIERRAANNAMARIE [facility] [id number] [facility] 2021-05-22 00:00:00 2021-05-22 00:00:00 Orders Only Doctor Unassigned, Wimer [facility] 1.2840.114 350.1.13.10 4.2.7.2.686 [id number] [facility] 2021-03-11 09:58:00 2021-03-12 13:25:00 Emergency Solange Ford Yaman [facility] 1.2.840.114 350.1.13.10 4.2.7.2.686 [id number] [facility] 2021-03-05 22:26:00 2021-03-06 00:33:00 Emergency Jennifer Reynaga [facility] 1.2.840.114 350.1.13.10 4.2.7.2.686 [id number] [facility] 2021-02-24 20:25:00 2021-02-24 21:57:00 Emergency Micha Vanessa [facility] 1.2.840.114 350.1.13.10 4.2.7.2.686 [id number] [facility] 2019-10-22 09:07:40 2019-10-22 09:41:44 [facility] CRM SYSTEM ADMINISTRATOR [facility] 1.2840.114 350.1.13.10 4.2.7.2.686 [id number] [facility] Results Test Description Test Time Test Comments Results Result Co mments Source [facility] ([facility] NOW [facility]APID TESTING)2021-05-22 12:21:27* Test Item Value Reference Range Interpretation Comme nts SARS-CoV-2 Rapid ID NOW (test code = 71916-0) Positive Not Detected A EVERARDO (test code = EVERARDO) ID NOW COVID-19 As say is an isothermal nucleic acid amplification test intended for the qualitative detection of nucleic acid from SARS-CoV-2 viral RNA in nasopharyngeal (FAMILY SERVICE WORKER) specimens. It is used under Emergency Use Authorization (EUA) by FDA. The limit of detection (LOD) of the assay is 125 Genome Equivalents/mL. A positive result is indicative of the presence of SARS-CoV-2 RNA. ?Clinical correlation with patient history and other diagnostic information is necessary to determine patient infection status. A negative (Not Detected) result does not preclude SARS-CoV-2 infection. In patients with clinical symptoms and other tests that are consistent with SARS-CoV-2 infection, negative results should be treated as presumptive negative and a new specimen should be tested with alternative PCR molecular test. Invalid: Please collect a new specimen for repeat patient testing if clinically indicated. Lab Interpretation (test code = 54952-5) Abnormal [facility]IS2021-[facility]-14 12:05:50* Test Item Value Reference Range Interpretation Comme nts APPEARANCE (test code = 8557153369) Clear Clear COLOR (test code = 8393810344) Yellow Yellow PH (test code = 7203581154) 4.8-8.0 SP GRAVITY (test code = 3760423568) 1.003-1.030 GLU U QUAL (test code = 3487822320) Normal Normal BLOOD (test code = 1256056904) 1+ Negative A KETONES (test code = 2232808488) Negative Negative PROTEIN (test code = 2887-8) Negative Negative UROBILIN (test code = 5267122441) Normal Normal BILIRUBIN (test code = 0621069976) Negative Negative NITRITE (test code = 2576818097) Negative Negative LEUK EMILIANO (test code = 8029426260) Negative Negative RBC/HPF (test code = 2723112629) See_Comment [Automated [employer]] The system which generated this result transmitted reference range: 0 - 3 HPF. The reference range was not used to interpret this result as normal/abnormal. WBC/HPF (test code = 5891659733) See_Comment [Automated [employer]] The system which generated this result transmitted reference range: 0 - 5 HPF. The reference range was not used to interpret this result as normal/abnormal. BACTERIA (test code = 7249377059) Few Negative A SQ EPITH (test code = 0210318729) HPF TRANS EPI (test code = 5102193790) <1 See_Comment [Automated [employer]] The system which generated this result transmitted reference range: <=1 HPF. The reference range was not used to interpret this result as normal/abnormal. Lab Interpretation (test code = 37996-6) Abnormal [facility] HospitalPO[facility] RYSH3244-82-00 11:31:00* Test Item Value Reference Range Interpretation Comme nts POCT PREG (test code = 1605) Negative On board controls acceptable with C Line (test code = 3574) Present POCT PREG LOT # (test code = 3575) [id number] POCT PREG TEST DATE ( test code = 3576) 10/08/2022 Lab Interpretation (test cod e = 36003-0) Normal [facility] HospitalURINE RIADUJL8098-50-61 17:42:24* Test Item Value Reference Range Interpretation Comme nts URINE CULTURE (test code = 630-4) 10,000 - 100,000 CFU/mL mixed aerobic organisms - suggests endogenous microbial contamination [facility] (NA, K, CL, CO2, GLUCOSE, BUN, CREATININE, CA)2021-03-12 11:27:06* Test Item Value Reference Range Interpretation Comme nts NA (test code = 7320684606) 137 mmol/L 135-145 K (test code = 6515750065) 3.1 mmol/L 3.5-5.0 L CL (test code = 3609263686) 103 mmol/L 98-108 CO2 TOTAL (test code = 8716282345) 27 mmol/L 23-31 AGAP (test code = 9046689110) 2-16 BUN (test code = 7815070278) 9 mg/dL 7-23 GLUCOSE (test code = 1446322223) 82 mg/dL 70-110 CREATININE (test code = 6456124703) 0.53 mg/dL 0.50-1.04 CALCIUM (test code = 0077864644) 8.9 mg/dL 8.6-10.6 eGFR (test code = 7593997037) mL/min/1.73m2 EVERARDO (test code = EVERARDO) Association of Glomerular Filtration Rate (GFR) and Staging of Kidney Disease* + --+ --+ ------+| GFR (mL/min/1.73 m2) ?| With Kidney Damage ?| ?Without Kidney Damage+ --------+ --------+ +| ?>90 ?| ?Stage one ?| ? Normal ?+ ---+ ---+ -------+| ?60-89 ?| ?Stage two ?| ? Decreased GFR ? + --+ --+ ------+| ?30-59 ?| ?Stage three ?| ? Stage three ? + --+ --+ ------+| ?15-29 ?| ?Stage four ? | ? Stage four ?+ ---+ ---+ -------+| ?<15 (or dialysis) ? ?| ?Stage five ? | ? Stage five ?+ ---+ ---+ -------+ *Each stage assumes the associated GFR level has been in effect for at least three months. ?Stages 1 to 5, with or without kidney disease, indicate chronic kidney disease. Notes: Determination of stages one and two (with eGFR >59mL/min/1.73 m2) requires estimation of kidney damage for at least three months as defined by structural or functional abnormalities of the kidney, manifested by either:Pathological abnormalities or Markers of kidney damage (including abnormalities in the composition of the blood or urine or abnormalities in imaging tests). Lab Interpretation (test code = 06506-0) Abnormal [facility] HospitalMagnesium Nrnbt6949-17-55 11:22:32* Test Item Value Reference Range Interpretation Comme nts MAGNESIUM (test code = 2379822137) 2.1 mg/dL 1.7-2.4 Lab Interpretation (test cod e = 87480-6) Normal [facility] with Dotomqpbedky9577-26-89 11:05:52* Test Item Value Reference Range Interpretation Comme nts WBC (test code = 6690-2) See_Comment [Automated [employer]] The system which generated this result transmitted reference range: 4.50 - 13.50 10*3/?L. The reference range was not used to interpret this result as normal/abnormal. RBC (test code = 789-8) See_Comment [Automated [employer]] The system which generated this result transmitted reference range: 4.10 - 5.10 10*6/?L. The reference range was not used to interpret this result as normal/abnormal. HGB (test code = 718-7) 12.3 g/dL 12.0-16.0 HCT (test code = 4544-3) 35.8 % 36.0-45.0 L MCV (test code = 787-2) 85.6 fL 78.0-95.0 MCH (test code = 785-6) 29.4 pg 26.0-32.0 MCHC (test code = 786-4) 34.4 g/dL 32.0-36.0 RDW-SD (test code = 77141-2) 37.9 fL 38.5-49.0 L RDW-CV (test code = 788-0) 12.3 % 11.5-14.0 PLT (test code = 777-3) See_Comment [Automated messa ge] The system which generated this result transmitted reference range: 135 - 361 10*3/?L. The reference range was not used to interpret this result as normal/abnormal. MPV (test code = 24421-0) 10.1 fL 9.4-13.3 NRBC/100 WBC (test code = 3169858106) See_Comment [Automated [employer] ssage] The system which generated this result transmitted reference range: 0.0 - 10.0 /100 WBCs. The reference range was not used to interpret this result as normal/abnormal. NRBC x10^3 (test code = 1604116582) <0.01 See_Comment [Automated messa ge] The system which generated this result transmitted reference range: 10*3/?L. The reference range was not used to interpret this result as normal/abnormal. GRAN MAT (NEUT) % (test code = 770-8) 59.8 % IMM GRAN % (test code = 7632093607) 0.80 % LYMPH % (test code = 736-9) 26.3 % MONO % (test code = 5905-5) 12.3 % EOS % (test code = 713-8) 0.5 % BASO % (test code = 706-2) 0.3 % GRAN MAT x10^3(ANC) (test code = 0948659117) 3.91 10*3/uL 1.50-10.30 IMM GRAN x10^3 (test code = 3581166767) 0.05 10*3/uL 0.00-0.06 LYMPH x10^3 (test code = 731-0) 1.72 10*3/uL 0.70-7.40 MONO x10^3 (test code = 742-7) 0.80 10*3/uL 0.00-0.50 H EOS x10^3 (test code = 711-2) 0.03 10*3/uL 0.00-0.40 BASO x10^3 (test code = 704-7) <0.03 0.00-0.10 Lab Interpretation (test code = 08701-9) Abnormal [facility] (ID NOW RAPID TESTING)2021-03-11 18:10:27* Test Item Value Reference Range Interpretation Comme nts SARS-CoV-2 Rapid ID NOW (test code = 93061-2) Not Detected Not Detected EVERARDO (test code = EVERARDO) ID NOW COVID-19 As say is an isothermal nucleic acid amplification test intended for the qualitative detection of nucleic acid from SARS-CoV-2 viral RNA in nasopharyngeal (FAMILY SERVICE WORKER) specimens. It is used under Emergency Use Authorization (EUA) by FDA. The limit of detection (LOD) of the assay is 125 Genome Equivalents/mL. A positive result is indicative of the presence of SARS-CoV-2 RNA. ?Clinical correlation with patient history and other diagnostic information is necessary to determine patient infection status. A negative (Not Detected) result does not preclude SARS-CoV-2 infection. In patients with clinical symptoms and other tests that are consistent with SARS-CoV-2 infection, negative results should be treated as presumptive negative and a new specimen should be tested with alternative PCR molecular test. Invalid: Please collect a new specimen for repeat patient testing if clinically indicated. Lab Interpretation (test code = 28119-8) Normal [facility] HospitalLactic Acid Whole Adtop0351-69-16 17:11:07* Test Item Value Reference Range Interpretation Comme nts LACTIC ACID (test code = 1392689117) 0.91 mmol/L 0.50-2.20 Lab Interpretation (test cod e = 58972-2) Normal [facility] HospitalCT ABDOMEN PELVIS W EHTSECRH7713-06-52 16:28:25No acute abnormality identified. INDICATION: ?Abdominal abscess/infection suspected ORDERING PROVIDER: ?SOLANGE FORD TECHNIQUE: ?HelicalCT imaging was performed through the abdomen and pelvisutilizing intravenous contrast. Oral contrast was not utilized at thediscretion of the ordering physician. ?CT was performed in accordance withthe principles of ALARA. RL: ?5601 COMPARISON: ?None Available FINDINGS: ? The liver, spleen, kidneys, adrenal glands, and pancreas are unremarkable.The gallbladder is present. The bowel is unopacified, limiting evaluation. There is no small bowelobstruction. The appendix is normal. No convincing evidence of acutecolonic inflammation is visualized. The uterus is retroflexed. The unopacified urinarybladder is grosslyunremarkable. The abdominal aorta is normal in caliber. No acute osseous abnormality is demonstrated. No free intraperitoneal air or abscess is noted. [facility], Radiant Results Inft User - 03/11/2021 11:29 AM CDT INDICATION: Abdominal abscess/infection suspected ORDERING PROVIDER: SOLANGE MOYER: Helical CT imagingwas performed through the abdomen and pelvisutilizing intravenous contrast. Oral contrast was not utilized at thediscretion of the ordering physician. CT was performed in accordance withthe principles of ALARA.RL: 5601COMPARISON: None AvailableFINDINGS: The liver, spleen, kidneys, adrenal glands, and pancreas are unremarkable.The gallbladder is present.The bowel is unopacified, limiting evaluation. There is no small bowelobstruction. The appendix is normal. No convincing evidence of acutecolonic inflammation is visualized.The uterus is retroflexed. The unopacified urinary bladder is grosslyunremarkable.The abdominal aorta is normal in caliber.No acute osseous abnormality is demonstrated.No free intraperitoneal air or abscess is noted.IMPRESSIONNo acute abnormality identified. [facility] Tbtpfxioyzrf9589-67-06 16:05:33* Test Item Value Reference Range Interpretation Comme nts WBC (test code = 6690-2) See_Comment H [Automated message] The system which generated this result transmitted reference range: 4.50 - 13.50 10*3/?L. The reference range was not used to interpret this result as normal/abnormal. RBC (test code = 789-8) See_Comment H [Automated message] The system which generated this result transmitted reference range: 4.10 - 5.10 10*6/?L. The reference range was not used to interpret this result as normal/abnormal. HGB (test code = 718-7) 15.0 g/dL 12.0-16.0 HCT (test code = 4544-3) 43.4 % 36.0-45.0 MCV (test code = 787-2) 84.6 fL 78.0-95.0 MCH (test code = 785-6) 29.2 pg 26.0-32.0 MCHC (test code = 786-4) 34.6 g/dL 32.0-36.0 RDW-SD (test code = 92755-5) 36.3 fL 38.5-49.0 L RDW-CV (test code = 788-0) 11.9 % 11.5-14.0 PLT (test code = 777-3) See_Comment H [Automated message] The system which generated this result transmitted reference range: 135 - 361 10*3/?L. The reference range was not used to interpret this result as normal/abnormal. MPV (test code = 16356-0) 9.6 fL 9.4-13.3 NRBC/100 WBC (test code = 5587334126) See_Comment [Automated message] The system which generated this result transmitted reference range: 0.0 - 10.0 /100 WBCs. The reference range was not used to interpret this result as normal/abnormal. NRBC x10^3 (test code = 2022863362) <0.01 See_Comment [Automated message] The system which generated this result transmitted reference range: 10*3/?L. The reference range was not used to interpret this result as normal/abnormal. GRAN MAT (NEUT) % (test code = 770-8) 86.3 % IMM GRAN % (test code = 1026899041) 0.90 % LYMPH % (test code = 736-9) 6.3 % MONO % (test code = 5905-5) 6.1 % EOS % (test code = 713-8) 0.1 % BASO % (test code = 706-2) 0.3 % GRAN MAT x10^3(ANC) (test code = 3445115499) 20.00 10*3/uL 1.50-10.30 H IMM GRAN x10^3 (test code = 7569957103) 0.21 10*3/uL 0.00-0.06 H LYMPH x10^3 (test code = 731-0) 1.45 10*3/uL 0.70-7.40 MONO x10^3 (test code = 742-7) 1.42 10*3/uL 0.00-0.50 H EOS x10^3 (test code = 711-2) <0.03 0.00-0.40 BASO x10^3 (test code = 704-7) 0.07 10*3/uL 0.00-0.10 Lab Interpretation (test code = 96662-0) Abnormal [facility] HospitalUrinalysis2021-06-03 15:41:19* Test Item Value Reference Range Interpretation Comme nts APPEARANCE (test code = 2448861922) Hazy Clear A COLOR (test code = 1700931182) Yellow Yellow PH (test code = 5795273537) 4.8-8.0 SP GRAVITY (test code = 4970519526) 1.003-1.030 GLU U QUAL (test code = 6537006988) Normal Normal BLOOD (test code = 1926039600) 1+ Negative A KETONES (test code = 5204723002) Negative Negative PROTEIN (test code = 2887-8) Negative Negative UROBILIN (test code = 1763925118) Normal Normal BILIRUBIN (test code = 2730598770) Negative Negative NITRITE (test code = 1366237186) Negative Negative LEUK EMILIANO (test code = 7272214000) 500/uL Negative A RBC/HPF (test code = 2956811135) See_Comment H [Automated messa ge] The system which generated this result transmitted reference range: 0 - 3 HPF. The reference range was not used to interpret this result as normal/abnormal. WBC/HPF (test code = 8211764876) See_Comment H [Automated messa ge] The system which generated this result transmitted reference range: 0 - 5 HPF. The reference range was not used to interpret this result as normal/abnormal. BACTERIA (test code = 8066381380) Few Negative A MUCOUS (test code = 6149438901) Slight Negative LPF A SQ EPITH (test code = 9920854645) HPF Lab Interpretation (test code = 53753-4) Abnormal [facility] HospitalComplete Metabolic Fpwqe3964-16-89 15:37:26* Test Item Value Reference Range Interpretation Comme nts NA (test code = 2519106359) 137 mmol/L 135-145 K (test code = 0907597948) 3.9 mmol/L 3.5-5.0 CL (test code = 3104025649) 104 mmol/L 98-108 CO2 TOTAL (test code = 8328450466) 25 mmol/L 23-31 AGAP (test code = 7093617418) 2-16 BUN (test code = 3166804553) 15 mg/dL 7-23 GLUCOSE (test code = 5487633513) 106 mg/dL 70-110 CREATININE (test code = 8780916891) 0.54 mg/dL 0.50-1.04 TOTAL BILI (test code = 1772910804) 0.8 mg/dL 0.1-1.1 CALCIUM (test code = 6578578140) 9.4 mg/dL 8.6-10.6 T PROTEIN (test code = 8867027327) 7.9 g/dL 6.3-8.2 ALBUMIN (test code = 1650184834) 4.5 g/dL 3.5-5.0 ALK PHOS (test code = 3730592179) 87 U/L 34-122 ALTv (test code = 1742-6) 21 U/L 5-35 AST(SGOT) (test code = 6812674686) 21 U/L 13-40 eGFR (test code = 7808267880) mL/min/1.73m2 EVERARDO (test code = EVERARDO) Association of Glomerular Filtration Rate (GFR) and Staging of Kidney Disease* + + +- +| GFR (mL/min/1.73 m2) ?| With Kidney Damage ?| ?Without Kidney Damage+ ------+ ----+ ------+| ?>90 ?| ?Stage one ?| ? Normal ?+ -+ + -+| ?60-89 ?| ?Stage two ?| ? Decreased GFR ? + + +- +| ?30-59 ?| ?Stage three ?| ? Stage three ? + + +- +| ?15-29 ?| ?Stage four ? | ? Stage four ?+ -+ + -+| ?<15 (or dialysis) ? ?| ?Stage five ? | ? Stage five ?+ -+ + -+ *Each stage assumes the associated GFR level has been in effect for at least three months. ?Stages 1 to 5, with or without kidney disease, indicate chronic kidney disease. Notes: Determination of stages one and two (with eGFR >59mL/min/1.73 m2) requires estimation of kidney damage for at least three months as defined by structural or functional abnormalities of the kidney, manifested by either:Pathological abnormalities or Markers of kidney damage (including abnormalities in the composition of the blood or urine or abnormalities in imaging tests). [facility] HospitalLipase, Fwncs4273-20-48 15:36:45* Test Item Value Reference Range Interpretation Comme nts LIPASE (test code = 6313366210) 52 U/L 0-220 Lab Interpretation (test cod e = 60095-0) Normal [facility] HospitalPOCT Fmde3411-29-06 15:06:00* Test Item Value Reference Range Interpretation Comme nts POCT PREG (test code = 1605) negative On board controls acceptable with C Line (test code = 3574) present POCT PREG LOT # (test code = 3575) [id number] POCT PREG TEST DATE ( test code = 3576) 09/07/2022 Lab Interpretation (test cod e = 50297-6) Normal [facility] HospitalCOVID-[facility] (ID NOW RAPID TESTING)2021-02-25 02:15:05* Test Item Value Reference Range Interpretation Comme nts SARS-CoV-2 Rapid ID NOW (test code = 13532-0) Not Detected Not Detected EVERARDO (test code = EVERARDO) ID NOW COVID-19 As say is an isothermal nucleic acid amplification test intended for the qualitative detection of nucleic acid from SARS-CoV-2 viral RNA in nasopharyngeal (FAMILY SERVICE WORKER) specimens. It is used under Emergency Use Authorization (EUA) by FDA. The limit of detection (LOD) of the assay is 125 Genome Equivalents/mL. A positive result is indicative of the presence of SARS-CoV-2 RNA. ?Clinical correlation with patient history and other diagnostic information is necessary to determine patient infection status. A negative (Not Detected) result does not preclude SARS-CoV-2 infection. In patients with clinical symptoms and other tests that are consistent with SARS-CoV-2 infection, negative results should be treated as presumptive negative and a new specimen should be tested with alternative PCR molecular test. Invalid: Please collect a new specimen for repeat patient testing if clinically indicated. Lab Interpretation (test code = 63357-7) Normal [facility] Notes Date/Time Note Provider Source 2023-05-23 18:15:58 wMilfl5IUep1X2DrOHzE QkgjNFi +lMIHjOrb8UnKZczmp6+9zlYFtF 9ywcvN2RGv0616-14-82K99:15: 58 Pt given printed and verbal discharge instructions regarding nausea and vomiting and burning sensation of stomach, encouraged hydration,2 Prescriptions sent. Pt verbalized understanding of instructions, pt awake alert oriented, resp reg unlabored, skin w/d, color appropriate for race, moves all ext well,pt encouraged to follow up with pcp. Advised to seek medical attention for new/prolonged/worsening of symptoms,Symptoms improved. No adverse reaction to meds given in ER noted upon dischargePIV d'cd, dressing to site, catheter in tact.Awake, alert oriented, resp reg unlabored, skin w/d, pt leaving amb with steady gait, in no apparent distress, 73374-9Aghrczfey department ErgvCK6923-47-38W31:16:37Em ergency department NoteTXT1.2.840.803417.1.13. 104.2.7.2.394589|[id number] AVAvailable for patient [id number] trino Batista [address] BlvdGalvestonGalvestonTXTX7 [id number] CTLR9161-64-82D25:16:371.2. 840.712323.1.72.3.15|1.2.84 0.651111.1.13.104.2.7.2.727 [id number] Shira Batista RN [facility] 2023-05-23 14:11:47 [id number]: 47 Patient to ED for vomiting x 3 days. Her abdomen feels like it is on fire. Every time she eats she vomits. She felt like this last time and she got admitted per patient. [id number] department Triage [id number]:12:28Em ergency department Triage [id number] AVAvailable for patient [id number] department [id number] D Wierzbicki RN[address]TXTX7 [id number] [id number]. [id number] Ced Womack RN [facility]"
[2023-11-02 11:54] LABS: SARS-CoV-2 Antigen Rapid Res Positive (Negative)
--- NOTE | 2023-11-02 11:58 | RAD REPORT ---
EXAM DESCRIPTION: RAD - Chest Pa And Lat (2 Views) - 11/02/2023 11:44 am CLINICAL HISTORY: Cough;Chest pain COMPARISON: < 10/11/2023 TECHNIQUE: PA and lateral views of the chest were obtained. FINDINGS: The lungs are clear. Heart size is normal and central vasculature is within normal limits. No pleural effusion or pneumothorax seen. No acute bony finding noted. IMPRESSION: No acute cardiopulmonary process.
[2023-11-02 12:10] LABS: Specific Gravity > 1.030 (1.005-1.030)
[2023-11-02 12:14] LABS: Specific Gravity > 1.030 (1.005-1.030); Urine Bacteria None Seen /HPF (<20); Urine Bilirubin NEGATIVE (Negative); Urine Blood 2+ (Negative); Urine Clarity Clear (Clear); Urine Color Yellow (Yellow); Urine Glucose NEGATIVE (Negative); Urine Mucus Slight /HPF (None Seen); Urine Protein TRACE (Negative); Urine RBC <5 /HPF (None Seen); Urine Urobilinogen Normal (Normal); Urine pH 5.5 (5.0-7.0)
--- NOTE | 2023-11-02 12:23 | EDPHYS ---
Physician Documentation [facility] Name: Francheska Tabares Age: 23 yrs Sex: Female : 2000 Arrival Date: 11/02/2023 Time: 11:14 Bed DIS2 Private MD: ED Physician Madhu Stevens HPI: 11/02 11:37 This 23 yrs old Female presents to ER via Ambulatory with complaints of Sore Throat, rn Congestion. 11:38 The patient presents with sore throat. Onset: The symptoms/episode began/occurred 2 rn day(s) ago. Severity of symptoms: At their worst the symptoms were mild, in the emergency department the symptoms are unchanged. Modifying factors: The symptoms are alleviated by nothing, the symptoms are aggravated by swallowing. Associated signs and symptoms: Pertinent positives: cough, fever, flu-like symptoms, headache, rhinorrhea, Sore throat Pertinent negatives. The patient has experienced similar episodes in the past. Patient reports flulike illness, fever/chills/myalgias/congestion/sore throat/cough/nausea. Patient around multiple sick people recently. States had the flu a couple weeks ago. No shortness of breath. No abdominal pain.. Historical: - Allergies: 11:24 No Known Allergies; ld1 - PMHx: 11:24 None; ld1 - PSHx: 11:24 Right Ankle; ld1 - Immunization history:: Adult Immunizations up to date. - Social history:: Smoking status: Reported history of juuling and/or vaping. Patient uses street drugs, marijuana. - Family history:: not pertinent. - Hospitalizations: : No recent hospitalization is reported. ROS: 11:38 Constitutional: Positive for fever and chills Eyes: Negative for injury, pain, redness, rn and discharge, ENT: Positive for nasal congestion and sore throat Cardiovascular: Negative for chest pain, palpitations, and edema, Respiratory: Positive for cough, negative for shortness of breath Abdomen/GI: Positive for nausea, negative for abdominal pain MS/Extremity: Negative for injury and deformity, Skin: Negative for injury, rash, and discoloration, Neuro: Positive for headache and generalized weakness/malaise. Exam: 11:38 Constitutional: This is a well developed, well nourished patient who is awake, alert, rn and in no acute distress. Ambulatory to room without difficulty or assistance Head/Face: Normocephalic, atraumatic. ENT: Mild pharyngeal erythema without exudate. No stridor. Neck: No masses or significant lymphadenopathy. No Meningismus. Cardiovascular: Regular rate and rhythm. No pulse deficits. Respiratory: Speaking full sentences, unlabored. Neuro: Awake and alert, GCS 15 Vital Signs: 11:23 BP 128 / 81; Pulse 102; Resp 18; Temp 98.1(TE); Pulse Ox 98% on R/A; Pain 0/10; ld1 11:26 Weight 97.52 kg; Height 5 ft. 4 in. ; ld1 11:26 Body Mass Index 36.90 (97.52 kg, 162.56 cm) ld1 11:23 Pain Scale: Adult ld1 MDM: 11:19 Patient medically screened. rn 12:22 Differential diagnosis: group A strep tonsillitis, influenza, pharyngitis, upper rn respiratory infection, viral syndrome. Data reviewed: vital signs, nurses notes, lab test result(s), radiologic studies, plain films, and as a result, I will discharge patient. Counseling: I had a detailed discussion with the patient and/or guardian regarding the historical points, exam findings, and any diagnostic results supporting the discharge/admit diagnosis, lab results, radiology results, the need for outpatient follow up, to return to the emergency department if symptoms worsen or persist or if there are any questions or concerns that arise at home. Special discussion: I discussed with the patient/guardian in detail that at this point there is no indication for admission to the hospital. It is understood, however, that if the symptoms persist or worsen the patient needs to return immediately for re-evaluation. 11/02 11:20 Order name: Strep rn 11/02 11:20 Order name: Flu; Complete Time: 12:00 rn 11/02 11:20 Order name: SARS RAPID; Complete Time: 12:00 rn 11/02 11:38 Order name: Test, Urine; Complete Time: 12:18 rn 11/02 11:38 Order name: Urinalysis w/ reflexes; Complete Time: 12:18 rn 11/02 11:59 Order name: Throat Culture EDMS 11/02 11:27 Order name: XRAY Chest Pa And Lat (2 Views); Complete Time: 12:00 rn Administered Medications: 11:58 Drug: Ibuprofen PO 800 mg PO once Route: PO; ld1 12:32 Follow up: Response: No adverse reaction cm10 Disposition Summary: 11/02/23 12:23 Discharge Ordered Notes: Location: Home rn Problem: new rn Symptoms: have improved rn Condition: Stable rn Diagnosis - SARS-associated coronavirus as the cause of diseases classified elsewhere rn Followup: rn - With: Private Physician - When: As needed - Reason: Recheck today's complaints, Re-evaluation by your physician Discharge Instructions: - Discharge Summary Sheet rn - COVID-19 rn - 10 Things You Can Do to Manage Your COVID-19 Symptoms at Home - [facility] (04/23/2021) rn - Viral Illness, Adult rn Forms: - Medication Reconciliation Form rn - Thank You Letter rn - Antibiotic pattern drum maker - Prescription Opioid Use rn - Patient Portal Instructions rn - Leadership Thank You Letter rn - Work release form cm10 Prescriptions: - ondansetron 4 mg Oral Tablet,disintegrating - take 1 tablet ORAL route every 8 hours As needed; 12 tablet; Refills: 0, rn Product Selection Permitted Signatures: Dispatcher [employer] Madhu Elizondo MD MD rn Sims, Lauren, RN RN ld1 Marleny Tse RN cm10 Corrections: (The following items were deleted from the chart) 11:30 11:27 Chest Single View+RAD.RAD.BRZ ordered. EDOK EDMS
--- NOTE | 2023-11-02 12:23 | ER ---
Nurse's Notes [facility] Name: Francheska Tabares Age: 23 yrs Sex: Female : 2000 Arrival Date: 11/02/2023 Time: 11:14 Bed DIS2 Private MD: Diagnosis: SARS-associated coronavirus as the cause of diseases classified elsewhere Presentation: 11/02 11:23 Chief complaint: Patient states: Vomiting, cough, sore throat, congestion 3 days. ld1 Coronavirus screen: At this time, the client does not indicate any symptoms associated with coronavirus-19. Ebola Screen: No symptoms or risks identified at this time. Initial Sepsis Screen: Does the patient meet any 2 criteria? No. Patient's initial sepsis screen is negative. Does the patient have a suspected source of infection? No. Patient's initial sepsis screen is negative. Risk Assessment: Do you want to hurt yourself or someone else? Patient reports no desire to harm self or others. Onset of symptoms was November 02, 2023. 11:23 Method Of Arrival: Ambulatory ld1 11:23 Acuity: NICHO 4 ld1 Triage Assessment: 11:24 General: Appears in no apparent distress. comfortable, Behavior is calm, cooperative, ld1 appropriate for age. Pain: Complains of pain in face Pain does not radiate. Pain currently is 8 out of 10 on a pain scale. Quality of pain is described as throbbing, Pain began suddenly. EENT: Reports pain in top of head, forehead, right samaritan, left samaritan and face. Neuro: Level of Consciousness is awake, alert, obeys commands, Oriented to person, place, time, situation. Cardiovascular: Capillary refill < 3 seconds Patient's skin is warm and dry. Rhythm is sinus rhythm. Respiratory: Airway is patent Respiratory effort is even, unlabored. GI: Abdomen is round non-distended, Reports nausea, vomiting. : No signs and/or symptoms were reported regarding the genitourinary system. Derm: No signs and/or symptoms reported regarding the dermatologic system. Musculoskeletal: No signs and/or symptoms reported regarding the musculoskeletal system. Historical: - Allergies: 11:24 No Known Allergies; ld1 - PMHx: 11:24 None; ld1 - PSHx: 11:24 Right Ankle; ld1 - Immunization history:: Adult Immunizations up to date. - Social history:: Smoking status: Reported history of juuling and/or vaping. Patient uses street drugs, marijuana. - Family history:: not pertinent. - Hospitalizations: : No recent hospitalization is reported. Screenin:32 [facility] ED Fall Risk Assessment (Adult) History of falling in the last 3 months, cm10 including since admission No falls in past 3 months (0 pts) Confusion or Disorientation No (0 pts) Intoxicated or Sedated No (0 pts) Impaired Gait No (0 pts) Mobility Assist Device Used No (0 pt) Altered Elimination No (0 pt) Score/Fall Risk Level 0 - 2 = Low Risk Oriented to surroundings, Maintained a safe environment, Hourly rounding (assess needs \T\ fall precautionary measures) done. Abuse screen: Denies threats or abuse. Denies injuries from another. Nutritional screening: No deficits noted. Tuberculosis screening: No symptoms or risk factors identified. Assessment: 12:32 General: Appears in no apparent distress. comfortable, Behavior is calm, cooperative. cm10 Respiratory: Airway is patent Respiratory effort is even, unlabored, Respiratory pattern is regular, symmetrical. Vital Signs: 11:23 BP 128 / 81; Pulse 102; Resp 18; Temp 98.1(TE); Pulse Ox 98% on R/A; Pain 0/10; ld1 11:26 Weight 97.52 kg; Height 5 ft. 4 in. ; ld1 11:26 Body Mass Index 36.90 (97.52 kg, 162.56 cm) ld1 11:23 Pain Scale: Adult ld1 ED Course: 11:17 Patient arrived in ED. mg5 11:19 Madhu Stevens MD is Attending Physician. rn 11:24 Triage completed. ld1 11:24 Arm band placed on right wrist. ld1 11:29 Strep Sent. ld1 11:29 SARS RAPID Sent. ld1 11:29 Flu Sent. ld1 11:46 XRAY Chest Pa And Lat (2 Views) In Process Unspecified. EDMS 11:58 Urinalysis w/ reflexes Sent. ld1 11:59 Test, Urine Sent. ld1 12:33 Patient has correct armband on for positive identification. Provided Education on: cm10 Follow-up procedures. . Cardiac monitoring not applicable on this patient. 12:33 No provider procedures requiring assistance completed. Patient did not have IV access cm10 during this emergency room visit. Administered Medications: 11:58 Drug: Ibuprofen PO 800 mg PO once Route: PO; ld1 12:32 Follow up: Response: No adverse reaction cm10 Medication: 12:32 VIS not applicable for this client. cm10 Outcome: :23 Discharge ordered by . rn 12:33 Discharged to home ambulatory, with friend, [email or web address] 12:33 Condition: good 12:33 Discharge instructions given to patient, Instructed on discharge instructions, follow up and referral plans. medication usage, Demonstrated understanding of instructions, follow-up care, medications, Prescriptions given X 1, 12:33 Patient left the ED. cm10 Signatures: Dispatcher [employer] EDMS Madhu Stevens MD MD rn Sims, Lauren, RN RN ld1 Marleny Tse RN RN cm10 Krista Haider mg5
[2023-11-02 12:42] VITALS: BP 128/81; TEMP 98.1; O2SAT 98
== END ==
LOC: ER 11:14
DX: U07.1 COVID-19 (principal); B97.21 SARS-associated coronavirus as the cause of diseases classified elsewhere; F17.290 Nicotine dependence, other tobacco product, uncomplicated; F12.90 Cannabis use, unspecified, uncomplicated
CPT/HCPCS: 36415; 71046; 81001; 81025; 87070; 87081; 87804; 87811; 99283

== ENCOUNTER → 2023-12-02 | Emergency (ER) | payer SELFPAY ==
--- OUTSIDE RECORDS SUMMARY | 2023-12-02 11:07 | XMS REPORT | Continuity of Care Document ---
Author Name Unknown Address [address] [facility] [place] [address] [facility] Address [address] [facility] [address] [place] [address] Care Team Providers Care Customer Support Engineer Name Role Phone Pcp, Patient Does Not Have A Primary Care Physic sissy JENNIFER REYNAGA Attending Clinician Unavailable Jennifer Toney Attending Clinician [phone] THELMA GARCIA Attending Clinician Unavailable Thelma Gore Attending Clinician [phone] Ceci GIBBS, Gissell Attending Clinician Monse vailable Doctor Unassigned, [place] Attending Clinician U navailable Rachel Sorenson Attending Clinician + MICHA VANESSA Attending Clinician Unavailable Micha Zamudio Attending Clinician Suzette Michele MD Attending Clinician [phone] SUZETTE MICHELE Attending Clinician Unavailable Solange Ford MD Attending Clinician [phone] Anatoly Valdovinos MD Attending Clinician [phone] Visit, [facility] Nurse Attending Clinician Anatoly Peter MD Admitting Clinician [phone] Payers Payer Name Policy Type Policy Number Effective Date Expirati on Date Source [facility] [id number] 2017 00:00:00 Problems Condition Name Condition Details Condition Category Status Onset Date Resolution Date Last Treatment Date Treating Clinician Comments Source Vomiting Vomiting Disease Active 03-11 00:00: 00 [facility] Obesity (BMI 30-39.9) Obesity (BMI 30-39.9) Disease Active 03-11 00:00: 00 [facility] BMI 39.0-39.9, adult BMI 39.0-39.9, adult Disease Active 2018-10 00:00: 00 [facility] Sexually active child Sexually active child Disease Active 2018-10 00:00: 00 [facility] Depo-Prove ra contracept dash status Depo-Prove ra contracept dash status Disease Active 10-18 00:00: 00 [facility] Screening examinatio n for STD (sexually transmitte d disease) Screening examinatio n for STD (sexually transmitte d disease) Disease Active 2017-10 00:00: 00 [facility] Over weight Over weight Disease Active 2017-10 00:00: 00 [facility] control control Disease Active 07-04 00:00: 00 [facility] Allergies, Adverse Reactions, Alerts Allergy Name Allergy Type Status Severity Reaction(s) Onset Date Inactive Date Treating Clinician Comments Source NO KNOWN ALLERGIE S Drug Class Active [facility] Social History Social Habit Start Date Stop Date Quantity Comments Source History SDOH Alcohol Comment [facility] Gender identity [facility] History SDOH Alcohol Binge [facility] Exposure to SARS-CoV-2 (event) 2023-02-13 00:00:00 2023-02-23 17:41:00 Not sure [facility] Alcohol intake 2021-10-18 00:00:00 2021-10-18 00:00:00 0 /d [facility] Tobacco use and exposure 2021-03-11 00:00:00 2021-03-11 00:00:00 Smokeless tobacco non-user [facility] Education 2021-03-11 00:00:00 2021-03-11 00:00:00 13 [facility] History of Social function 2020-05-14 00:00:00 2020-05-14 00:00:00 [facility] History SDOH Alcohol Frequency 2019-07-16 00:00:00 2019-07-16 00:00:00 1 [facility] Sex Assigned At 2002 00:00:00 2002 00:00:00 [facility] Smoking Status Start Date Stop Date Source Never smoked tobacco [facility] Medications Ordered Medication Name Filled Medication Name Start Date Stop Date Current Medication? Ordering Clinician Indication Dosage Frequency Signature (SIG) Comments Components Source maalox:diph enhydrAMINE :lidocaine 2 % viscous 1:1:1 (FIRST-MOUT HWASH BLM) oral suspension 15 mL 05-23 21:00: 00 05-23 22:18 :00 No 15mL 15 mL, Oral, ONCE, 1 dose, On Mon05/23/23 at 1600, Routine [facility] pantoprazol e (PROTONIX) injection 40 mg 05-23 21:00: 00 05-23 22:17 :00 No 40mg 40 mg, Slow IV Push, ONCE, 1 dose, On Mon05/23/23 at 1600 [facility] ondansetron (ZOFRAN (PF)) injection 4 mg 05-23 21:00: 00 05-23 22:17 :00 No 4mg 4 mg, Slow IV Push, ONCE, 1 dose, On Mon05/23/23 at 1600, [facility] ondansetron 4 mg disintegrat ing tablet 05-23 00:00: 00 Yes [id number] 4mg Take 1 tablet by mouth every 8 (eight) hours as needed for Nausea and Vomiting (N/V). [facility] famotidine (PEPCID) 20 mg tablet 05-23 00:00: 00 06-23 04:59 :00 No [id number] 20mg Take 1 tablet by mouth in the morning and 1 tablet in the evening. Do all this for 30 days. [facility] predniSONE (DELTASONE) tablet 10 mg 02-24 00:30: 00 02-24 00:39 :00 No 10mg 10 mg, Oral, ONCE, 1 dose, On Mon02/23/23 at 1930, [facility] amoxicillin -clavulanat e (AUGMENTIN) 875-125 mg per tablet 1 tablet 02-24 00:28: 00 02-24 00:38 :00 No 1{tbl} 1 tablet, Oral, ONCE, 1 dose, On Mon02/23/23 at 1930, [facility]
Re ason for Anti-Infec tive: Documented Infection< br>Documen candido Infection Site: HEENT
D uration of Therapy: Other (see Comments) [facility] ketorolac (TORADOL) injection 30 mg 02-23 23:09: 00 02-23 23:23 :00 No 30mg 30 mg, Intramuscu lar, ONCE, 1 dose, On Mon02/23/23 at 1815, [facility] amoxicillin -clavulanat e 875-125 mg per tablet 02-23 00:00: 00 Yes [id number] 1{tbl} Take 1 tablet by mouth every 12 (twelve) hours. [facility] amoxicillin -clavulanat e 875-125 mg per tablet 02-23 00:00: 00 Yes [id number] 1{tbl} Take 1 tablet by mouth every 12 (twelve) hours. [facility] predniSONE 10 mg tablet 02-23 00:00: 00 02-27 04:59 :00 No [id number] 30mg Take 3 tablets by mouth in the morning for 3 days. [facility] ibuprofen (IBU) tablet 600 mg - 05:45: 00 10-19 04:40 :00 No 600mg 600 mg, Oral, ONCE, 1 dose, On 10/18/21 at 2345, LEOLA [facility] HYDROcodone -acetaminop hen (NORCO) 10-325 mg tablet 1 tablet 05-22 13:15: 00 05-22 12:30 :00 No 1{tbl} 1 tablet, Oral, ONCE, 1 dose, 05/22/21 at 0815, Routine [facility] ibuprofen 800 mg tablet 05-22 00:00: 00 Yes [id number] 800mg Take 1 tablet by mouth every 8 (eight) hours as needed for Pain (scale 4-6) or Temp > 38.5 C. [facility] ibuprofen 800 mg tablet 05-22 00:00: 00 Yes [id number] 800mg Take 1 tablet by mouth every 8 (eight) hours as needed for Pain (scale 4-6) or Temp > 38.5 C. [facility] ibuprofen 800 mg tablet 05-22 00:00: 00 Yes [id number] 800mg Take 1 tablet by mouth every 8 (eight) hours as needed for Pain (scale 4-6) or Temp > 38.5 C. [facility] ibuprofen 800 mg tablet 05-22 00:00: 00 02-23 00:00 :00 No [id number] 800mg Take 1 tablet by mouth every 8 (eight) hours as needed for Pain (scale 4-6) or Temp > 38.5 C. [facility] cefTRIAXone (ROCEPHIN) 1,000 mg in NaCl 0.9% (NS) 50 mL MINI-BAG 03-12 16:00: 00 03-12 16:18 :00 No 1000mg 1,000 mg, IV Piggyback, ONCE, 1 dose, Mon03/12/21 at 1100, 50 mL
Reas on for Anti-Infec tive: Empiric Therapy for Suspected Infection< br>Empiric Therapy Site: Urine
D uration of therapy: 72 hours [facility] ity [facility] KCL (KLOR-CON M20) tablet 40 mEq 03-12 12:45: 00 03-12 13:07 :00 No 40meq 40 mEq, Oral, ONCE, 1 dose, Mon03/12/21 at 0745, Routine [facility] morpHINE injection 4 mg 03-12 07:16: 17 Yes 4mg 4 mg, Slow IV Push, Q4HPRN, Starting Mon03/12/21 at 0216, Until Discontinu ed, Routine, Pain (scale 7-10) [facility] pantoprazol e (PROTONIX) 40 mg in NaCl 0.9% (NS) 100 mL MINI-BAG 03-12 00:15: 00 Yes 40mg 40 mg, IV Piggyback, Q24H, First dose on Mon03/11/21 at 1915, Until Discontinu ed, 100 mL [facility] ondansetron 4 mg tablet 03-12 00:00: 00 03-23 04:59 :00 No [id number] 4mg Take 1 tablet by mouth every 8 (eight) hours for 10 days. [facility] cephALEXin 500 mg capsule 03-12 00:00: 00 03-16 04:59 :00 No [id number] 500mg Take 1 capsule by mouth 2 (two) times daily for 3 days. [facility] enoxaparin (LOVENOX) injection 30 mg 03-11 22:00: 00 Yes 30mg 30 mg, Subcutaneo us, DAILY, First dose on Mon03/11/21 at 1700, Until Discontinu ed, Routine [facility] D5W-LR IV infusion 1,000 mL 03-11 21:45: 00 Yes 1000mL at 125 mL/hr, IV Infusion, CONTINUOUS , Starting Elizabeth 03/11/21 at 1645, Until Discontinu ed, Routine [facility] morpHINE injection 4 mg 03-11 21:15: 00 03-11 20:32 :00 No 4mg 4 mg, Slow IV Push, ONCE, 1 dose, Elizabeth 03/11/21 at 1615, STAT [facility] ondansetron (ZOFRAN (PF)) injection 4 mg 03-11 20:38: 54 Yes 4mg 4 mg, Slow IV Push, Q6HPRN, Starting Elizabeth 03/11/21 at 1538, Until Discontinu ed, Routine, Nausea and Vomiting (N/V) [facility] acetaminoph en-codeine (TYLENOL #3) 300-30 mg tablet 1 tablet 03-11 20:38: 49 03-13 20:37 :49 No 1{tbl} 1 tablet, Oral, Q6HPRN, Starting Elizabeth 03/11/21 at 1538, Until 03/13/21 at 1537, Routine, Pain (scale 4-6) [facility] acetaminoph en (TYLENOL) tablet 650 mg 03-11 20:38: 42 Yes 650mg 650 mg, Oral, Q6HPRN, Starting Elizabeth 03/11/21 at 1538, Until Discontinu ed, Routine, Pain (scale 1-3) [facility] cefTRIAXone (ROCEPHIN) 1,000 mg in NaCl 0.9% (NS) 50 mL MINI-BAG 03-11 18:00: 00 03-11 17:41 :00 No 1000mg 1,000 mg, IV Piggyback, ONCE, 1 dose, Elizabeth 03/11/21 at 1300, 50 mL
Reas on for Anti-Infec tive: Empiric Therapy for Suspected Infection< br>Empiric Therapy Site: Abdominal< br>Duratio n of therapy: 72 hours [facility] iopamidol (ISOVUE 370-500 mL) injection 120 mL 03-11 17:00: 00 03-11 17:00 :00 No [id number] 120mL 120 mL, Intravenou s, ONCE, 1 dose, Elizabeth 03/11/21 at 1200, Routine [facility] morpHINE injection 4 mg 03-11 16:45: 00 03-11 15:43 :00 No 4mg 4 mg, Slow IV Push, ONCE, 1 dose, Elizabeth 03/11/21 at 1145, STAT [facility] ondansetron (ZOFRAN (PF)) injection 4 mg 03-11 16:30: 00 03-11 15:41 :00 No 4mg 4 mg, Slow IV Push, ONCE, 1 dose, Elizabeth 03/11/21 at 1130, [facility] NaCl 0.9% (NS) bolus infusion 1,000 mL 03-11 16:30: 00 03-11 19:19 :00 No 1000mL at 999 mL/hr, 1,000 mL, IV Infusion, ONCE, 1 dose, Elizabeth 03/11/21 at 1130, STAT [facility] sodium chloride (NS) injection 5 mL 03-11 14:57: 42 Yes 5mL 5 mL, Intravenou s, PRN, Starting Elizabeth 03/11/21 at 0957, Until Discontinu ed, Routine, IV line flushing [facility] codeine-gua ifenesin (ROBITUSSIN AC) 10-100 mg/5 mL solution 10 mL 03-06 05:00: 00 03-06 04:26 :00 No 10mL 10 mL, Oral, ONCE, 1 dose, 03/06/21 at 0000, [facility] dexamethaso ne (DECADRON PHOSPHATE) injection 10 mg 03-06 05:00: 00 03-06 04:19 :00 No 10mg 10 mg, Intramuscu lar, ONCE, 1 dose, 03/06/21 at 0000, STAT [facility] methylPREDN ISolone (MEDROL, TILA,) 4 mg tablets 03-06 00:00: 00 Yes [id number] Take by mouth SEE-INSTRU CTIONS. follow package directions [facility] azithromyci n 250 mg tablet 03-06 00:00: 00 Yes [id number] 250mg Take 1 tablet by mouth daily. Take 500 mg day 1, then 250 mg days 2 to 5. [facility] albuterol 90 mcg/actuati on inhaler 03-06 00:00: 00 Yes [id number] 2{puff} Inhale 2 Puffs every 4 (four) hours as needed for Wheezing or Shortness of Breath. [facility] albuterol 90 mcg/actuati on inhaler 03-06 00:00: 00 Yes [id number] 2{puff} Inhale 2 Puffs every 4 (four) hours as needed for Wheezing or Shortness of Breath. [facility] albuterol 90 mcg/actuati on inhaler 03-06 00:00: 00 Yes [id number] 2{puff} Inhale 2 Puffs every 4 (four) hours as needed for Wheezing or Shortness of Breath. [facility] albuterol 90 mcg/actuati on inhaler 03-06 00:00: 00 05-22 00:00 :00 No [id number] 2{puff} Inhale 2 Puffs every 4 (four) hours as needed for Wheezing or Shortness of Breath. [facility] codeine-gua ifenesin 10-100 mg/5 mL solution 03-06 00:00: 00 03-14 04:59 :00 No [id number] 10mL Take 10 mL by mouth every 6 (six) hours as needed for Cough for up to 7 days. Indication s: acute pain [facility] methylPREDN ISolone (MEDROL, TILA,) 4 mg tablets 03-06 00:00: 00 03-12 00:00 :00 No [id number] Take by mouth SEE-INSTRU CTIONS. follow package directions [facility] azithromyci n 250 mg tablet 03-06 00:00: 03-12 00:00 :00 No [id number] 250mg Take 1 tablet by mouth daily. Take 500 mg day 1, then 250 mg days 2 to 5. [facility] codeine-gua ifenesin 10-100 mg/5 mL solution 03-06 00:00: 00 03-12 00:00 :00 No [id number] 10mL Take 10 mL by mouth every 6 (six) hours as needed for Cough for up to 7 days. Indication s: acute pain [facility] benzonatate 100 mg capsule 02-24 00:00: 00 Yes [id number] 100mg Take 1 capsule by mouth 3 (three) times daily as needed for Cough. [facility] benzonatate 100 mg capsule 02-24 00:00: 00 Yes [id number] 100mg Take 1 capsule by mouth 3 (three) times daily as needed for Cough. [facility] benzonatate 100 mg capsule 02-24 00:00: 00 03-12 00:00 :00 No [id number] 100mg Take 1 capsule by mouth 3 (three) times daily as needed for Cough. [facility] predniSONE 20 mg tablet 02-24 00:00: 00 03-01 04:59 :00 No [id number] 20mg Take 1 tablet by mouth 2 (two) times daily for 4 days. [facility] medroxyPROG ESTERone (DEPO-PROVE RA) injection 150 mg 2018-10 15:00: 00 06-30 14:59 :00 No [id number] 150mg [facility] medroxyPROG ESTERone (DEPO-PROVE RA) injection 150 mg 2018-10 15:00: 00 06-30 14:59 :00 No [id number] 150mg 150 mg, Intramuscu lar, [id number], 4 doses, First dose on Mon07/30/19 at 1000, Last dose on Mon04/07/20 at 1000, Routine [facility] traMADOL (ULTRAM) 50 mg tablet 03-24 00:00: 00 Yes 50mg Take 1 tablet by mouth every 6 (six) hours as needed for Pain (scale 4-6). [facility] traMADOL (ULTRAM) 50 mg tablet 03-24 00:00: 00 Yes 50mg Take 1 tablet by mouth every 6 (six) hours as needed for Pain (scale 4-6). [facility] traMADOL (ULTRAM) 50 mg tablet 03-24 00:00: 00 Yes 50mg Take 1 tablet by mouth every 6 (six) hours as needed for Pain (scale 4-6). [facility] traMADOL (ULTRAM) 50 mg tablet 03-24 00:00: 00 03-12 00:00 :00 No 50mg Take 1 tablet by mouth every 6 (six) hours as needed for Pain (scale 4-6). [facility] Immunizations Ordered Immunization Name Filled Immunization Name Date Status Comments Source HPV 2018-10-18 00:00:00 Completed [facility] HPV9 2018-10-18 00:00:00 Completed [facility] HPV 2018-10-18 00:00:00 Completed [facility] HPV9 2018-10-18 00:00:00 Completed [facility] HPV 2018-10-18 00:00:00 Completed [facility] HPV9 2018-10-18 00:00:00 Completed [facility] HPV 2018-10-18 00:00:00 Completed [facility] HPV9 2018-10-18 00:00:00 Completed [facility] HPV 2018-10-18 00:00:00 Completed [facility] HPV9 2018-10-18 00:00:00 Completed [facility] HPV 2018-10-18 00:00:00 Completed [facility] HPV9 2018-10-18 00:00:00 Completed [facility] HPV 2018-10-18 00:00:00 Completed [facility] HPV9 2018-10-18 00:00:00 Completed [facility] HPV 2018-10-18 00:00:00 Completed [facility] HPV9 2018-10-18 00:00:00 Completed [facility] HPV 2018-10-18 00:00:00 Completed [facility] HPV9 2018-10-18 00:00:00 Completed [facility] HPV 2018-10-18 00:00:00 Completed [facility] HPV9 2018-10-18 00:00:00 Completed [facility] HPV 2018-07-18 00:00:00 Completed [facility] HPV9 2018-07-18 00:00:00 Completed [facility] HPV 2018-07-18 00:00:00 Completed [facility] HPV9 2018-07-18 00:00:00 Completed [facility] HPV 2018-07-18 00:00:00 Completed [facility] HPV9 2018-07-18 00:00:00 Completed [facility] HPV 2018-07-18 00:00:00 Completed [facility] HPV9 2018-07-18 00:00:00 Completed [facility] HPV 2018-07-18 00:00:00 Completed [facility] HPV9 2018-07-18 00:00:00 Completed [facility] HPV 2018-07-18 00:00:00 Completed [facility] HPV9 2018-07-18 00:00:00 Completed [facility] HPV 2018-07-18 00:00:00 Completed [facility] HPV9 2018-07-18 00:00:00 Completed [facility] HPV 2018-07-18 00:00:00 Completed [facility] HPV9 2018-07-18 00:00:00 Completed [facility] HPV 2018-07-18 00:00:00 Completed [facility] HPV9 2018-07-18 00:00:00 Completed [facility] HPV 2018-07-18 00:00:00 Completed [facility] HPV9 2018-07-18 00:00:00 Completed [facility] HPV 2015-05-22 00:00:00 Completed [facility] TDAP (ADACEL) VACCINE 2015-05-22 00:00:00 Completed [facility] HPV9 2015-05-22 00:00:00 Completed [facility] Meningococcal Polysaccharide (groups A, C, Y and W-135) conjugate vaccine (MCV4P) 2015-05-22 00:00:00 Completed [facility] HPV 2015-05-22 00:00:00 Completed [facility] TDAP (ADACEL) VACCINE 2015-05-22 00:00:00 Completed [facility] HPV9 2015-05-22 00:00:00 Completed [facility] Meningococcal Polysaccharide (groups A, C, Y and W-135) conjugate vaccine (MCV4P) 2015-05-22 00:00:00 Completed [facility] HPV 2015-05-22 00:00:00 Completed [facility] TDAP (ADACEL) VACCINE 2015-05-22 00:00:00 Completed [facility] HPV9 2015-05-22 00:00:00 Completed [facility] Meningococcal Polysaccharide (groups A, C, Y and W-135) conjugate vaccine (MCV4P) 2015-05-22 00:00:00 Completed [facility] HPV 2015-05-22 00:00:00 Completed [facility] TDAP (ADACEL) VACCINE 2015-05-22 00:00:00 Completed [facility] HPV9 2015-05-22 00:00:00 Completed [facility] Meningococcal Polysaccharide (groups A, C, Y and W-135) conjugate vaccine (MCV4P) 2015-05-22 00:00:00 Completed [facility] HPV 2015-05-22 00:00:00 Completed [facility] TDAP (ADACEL) VACCINE 2015-05-22 00:00:00 Completed [facility] HPV9 2015-05-22 00:00:00 Completed [facility] Meningococcal Polysaccharide (groups A, C, Y and W-135) conjugate vaccine (MCV4P) 2015-05-22 00:00:00 Completed [facility] HPV 2015-05-22 00:00:00 Completed [facility] TDAP (ADACEL) VACCINE 2015-05-22 00:00:00 Completed [facility] HPV9 2015-05-22 00:00:00 Completed [facility] Meningococcal Polysaccharide (groups A, C, Y and W-135) conjugate vaccine (MCV4P) 2015-05-22 00:00:00 Completed [facility] HPV 2015-05-22 00:00:00 Completed [facility] TDAP (ADACEL) VACCINE 2015-05-22 00:00:00 Completed [facility] HPV9 2015-05-22 00:00:00 Completed [facility] Meningococcal Polysaccharide (groups A, C, Y and W-135) conjugate vaccine (MCV4P) 2015-05-22 00:00:00 Completed [facility] HPV 2015-05-22 00:00:00 Completed [facility] TDAP (ADACEL) VACCINE 2015-05-22 00:00:00 Completed [facility] HPV9 2015-05-22 00:00:00 Completed [facility] Meningococcal Polysaccharide (groups A, C, Y and W-135) conjugate vaccine (MCV4P) 2015-05-22 00:00:00 Completed [facility] HPV 2015-05-22 00:00:00 Completed [facility] TDAP (ADACEL) VACCINE 2015-05-22 00:00:00 Completed [facility] HPV9 2015-05-22 00:00:00 Completed [facility] Meningococcal Polysaccharide (groups A, C, Y and W-135) conjugate vaccine (MCV4P) 2015-05-22 00:00:00 Completed [facility] HPV 2015-05-22 00:00:00 Completed [facility] TDAP (ADACEL) VACCINE 2015-05-22 00:00:00 Completed [facility] HPV9 2015-05-22 00:00:00 Completed [facility] Meningococcal Polysaccharide (groups A, C, Y and W-135) conjugate vaccine (MCV4P) 2015-05-22 00:00:00 Completed [facility] DTAP 2007-05-08 00:00:00 Completed [facility] HEPATITIS A 2007-05-08 00:00:00 Completed [facility] Polio (IPV/OPV) 2007-05-08 00:00:00 Completed [facility] Proquad (MMR/VARICELLA) 2007-05-08 00:00:00 Completed [facility] DTAP 2007-05-08 00:00:00 Completed [facility] HEPATITIS A 2007-05-08 00:00:00 Completed [facility] Polio (IPV/OPV) 2007-05-08 00:00:00 Completed [facility] Proquad (MMR/VARICELLA) 2007-05-08 00:00:00 Completed [facility] DTAP 2007-05-08 00:00:00 Completed [facility] HEPATITIS A 2007-05-08 00:00:00 Completed [facility] Polio (IPV/OPV) 2007-05-08 00:00:00 Completed [facility] Proquad (MMR/VARICELLA) 2007-05-08 00:00:00 Completed [facility] DTAP 2007-05-08 00:00:00 Completed [facility] HEPATITIS A 2007-05-08 00:00:00 Completed [facility] Polio (IPV/OPV) 2007-05-08 00:00:00 Completed [facility] Proquad (MMR/VARICELLA) 2007-05-08 00:00:00 Completed [facility] DTAP 2007-05-08 00:00:00 Completed [facility] HEPATITIS A 2007-05-08 00:00:00 Completed [facility] Polio (IPV/OPV) 2007-05-08 00:00:00 Completed [facility] Proquad (MMR/VARICELLA) 2007-05-08 00:00:00 Completed [facility] DTAP 2007-05-08 00:00:00 Completed [facility] HEPATITIS A 2007-05-08 00:00:00 Completed [facility] Polio (IPV/OPV) 2007-05-08 00:00:00 Completed [facility] Proquad (MMR/VARICELLA) 2007-05-08 00:00:00 Completed [facility] DTAP 2007-05-08 00:00:00 Completed [facility] HEPATITIS A 2007-05-08 00:00:00 Completed [facility] Polio (IPV/OPV) 2007-05-08 00:00:00 Completed [facility] Proquad (MMR/VARICELLA) 2007-05-08 00:00:00 Completed [facility] DTAP 2007-05-08 00:00:00 Completed [facility] HEPATITIS A 2007-05-08 00:00:00 Completed [facility] Polio (IPV/OPV) 2007-05-08 00:00:00 Completed [facility] Proquad (MMR/VARICELLA) 2007-05-08 00:00:00 Completed [facility] DTAP 2007-05-08 00:00:00 Completed [facility] HEPATITIS A 2007-05-08 00:00:00 Completed [facility] Polio (IPV/OPV) 2007-05-08 00:00:00 Completed [facility] Proquad (MMR/VARICELLA) 2007-05-08 00:00:00 Completed [facility] DTAP 2007-05-08 00:00:00 Completed [facility] HEPATITIS A 2007-05-08 00:00:00 Completed [facility] Polio (IPV/OPV) 2007-05-08 00:00:00 Completed [facility] Proquad (MMR/VARICELLA) 2007-05-08 00:00:00 Completed [facility] DTAP 2006-02-09 00:00:00 Completed [facility] HEPATITIS A 2006-02-09 00:00:00 Completed [facility] Pneumococcal 13 Conjugate, PCV13 (Prevnar 13) 2006-02-09 00:00:00 Completed [facility] DTAP 2006-02-09 00:00:00 Completed [facility] HEPATITIS A 2006-02-09 00:00:00 Completed [facility] Pneumococcal 13 Conjugate, PCV13 (Prevnar 13) 2006-02-09 00:00:00 Completed [facility] DTAP 2006-02-09 00:00:00 Completed [facility] HEPATITIS A 2006-02-09 00:00:00 Completed [facility] Pneumococcal 13 Conjugate, PCV13 (Prevnar 13) 2006-02-09 00:00:00 Completed [facility] DTAP 2006-02-09 00:00:00 Completed [facility] HEPATITIS A 2006-02-09 00:00:00 Completed [facility] Pneumococcal 13 Conjugate, PCV13 (Prevnar 13) 2006-02-09 00:00:00 Completed [facility] DTAP 2006-02-09 00:00:00 Completed [facility] HEPATITIS A 2006-02-09 00:00:00 Completed [facility] Pneumococcal 13 Conjugate, PCV13 (Prevnar 13) 2006-02-09 00:00:00 Completed [facility] DTAP 2006-02-09 00:00:00 Completed [facility] HEPATITIS A 2006-02-09 00:00:00 Completed [facility] Pneumococcal 13 Conjugate, PCV13 (Prevnar 13) 2006-02-09 00:00:00 Completed [facility] DTAP 2006-02-09 00:00:00 Completed [facility] HEPATITIS A 2006-02-09 00:00:00 Completed [facility] Pneumococcal 13 Conjugate, PCV13 (Prevnar 13) 2006-02-09 00:00:00 Completed [facility] DTAP 2006-02-09 00:00:00 Completed [facility] HEPATITIS A 2006-02-09 00:00:00 Completed [facility] Pneumococcal 13 Conjugate, PCV13 (Prevnar 13) 2006-02-09 00:00:00 Completed [facility] DTAP 2006-02-09 00:00:00 Completed [facility] HEPATITIS A 2006-02-09 00:00:00 Completed [facility] Pneumococcal 13 Conjugate, PCV13 (Prevnar 13) 2006-02-09 00:00:00 Completed [facility] DTAP 2006-02-09 00:00:00 Completed [facility] HEPATITIS A 2006-02-09 00:00:00 Completed [facility] Pneumococcal 13 Conjugate, PCV13 (Prevnar 13) 2006-02-09 00:00:00 Completed [facility] DTAP 2005-03-14 00:00:00 Completed [facility] Hep B, Adol or Pedi Dosage 2005-03-14 00:00:00 Completed [facility] DTAP 2005-03-14 00:00:00 Completed [facility] Hep B, Adol or Pedi Dosage 2005-03-14 00:00:00 Completed [facility] DTAP 2005-03-14 00:00:00 Completed [facility] Hep B, Adol or Pedi Dosage 2005-03-14 00:00:00 Completed [facility] DTAP 2005-03-14 00:00:00 Completed [facility] Hep B, Adol or Pedi Dosage 2005-03-14 00:00:00 Completed [facility] DTAP 2005-03-14 00:00:00 Completed [facility] Hep B, Adol or Pedi Dosage 2005-03-14 00:00:00 Completed [facility] DTAP 2005-03-14 00:00:00 Completed [facility] Hep B, Adol or Pedi Dosage 2005-03-14 00:00:00 Completed [facility] DTAP 2005-03-14 00:00:00 Completed [facility] Hep B, Adol or Pedi Dosage 2005-03-14 00:00:00 Completed [facility] DTAP 2005-03-14 00:00:00 Completed [facility] Hep B, Adol or Pedi Dosage 2005-03-14 00:00:00 Completed [facility] DTAP 2005-03-14 00:00:00 Completed [facility] Hep B, Adol or Pedi Dosage 2005-03-14 00:00:00 Completed [facility] DTAP 2005-03-14 00:00:00 Completed [facility] Hep B, Adol or Pedi Dosage 2005-03-14 00:00:00 Completed [facility] DTAP 2004-08-04 00:00:00 Completed [facility] HIB 3 Dose Schedule 2004-08-04 00:00:00 Completed [facility] Polio (IPV/OPV) 2004-08-04 00:00:00 Completed [facility] DTAP 2004-08-04 00:00:00 Completed [facility] HIB 3 Dose Schedule 2004-08-04 00:00:00 Completed [facility] Polio (IPV/OPV) 2004-08-04 00:00:00 Completed [facility] DTAP 2004-08-04 00:00:00 Completed [facility] HIB 3 Dose Schedule 2004-08-04 00:00:00 Completed [facility] Polio (IPV/OPV) 2004-08-04 00:00:00 Completed [facility] DTAP 2004-08-04 00:00:00 Completed [facility] HIB 3 Dose Schedule 2004-08-04 00:00:00 Completed [facility] Polio (IPV/OPV) 2004-08-04 00:00:00 Completed [facility] DTAP 2004-08-04 00:00:00 Completed [facility] HIB 3 Dose Schedule 2004-08-04 00:00:00 Completed [facility] Polio (IPV/OPV) 2004-08-04 00:00:00 Completed [facility] DTAP 2004-08-04 00:00:00 Completed [facility] HIB 3 Dose Schedule 2004-08-04 00:00:00 Completed [facility] Polio (IPV/OPV) 2004-08-04 00:00:00 Completed [facility] DTAP 2004-08-04 00:00:00 Completed [facility] HIB 3 Dose Schedule 2004-08-04 00:00:00 Completed [facility] Polio (IPV/OPV) 2004-08-04 00:00:00 Completed [facility] DTAP 2004-08-04 00:00:00 Completed [facility] HIB 3 Dose Schedule 2004-08-04 00:00:00 Completed [facility] Polio (IPV/OPV) 2004-08-04 00:00:00 Completed [facility] DTAP 2004-08-04 00:00:00 Completed [facility] HIB 3 Dose Schedule 2004-08-04 00:00:00 Completed [facility] Polio (IPV/OPV) 2004-08-04 00:00:00 Completed [facility] DTAP 2004-08-04 00:00:00 Completed [facility] HIB 3 Dose Schedule 2004-08-04 00:00:00 Completed [facility] Polio (IPV/OPV) 2004-08-04 00:00:00 Completed [facility] DTAP 2003-11-20 00:00:00 Completed [facility] HIB 3 Dose Schedule 2003-11-20 00:00:00 Completed [facility] Hep B, Adol or Pedi Dosage 2003-11-20 00:00:00 Completed [facility] MMR 2003-11-20 00:00:00 Completed [facility] Polio (IPV/OPV) 2003-11-20 00:00:00 Completed [facility] Varicella (varivax)(chicken pox) 2003-11-20 00:00:00 Completed [facility] DTAP 2003-11-20 00:00:00 Completed [facility] HIB 3 Dose Schedule 2003-11-20 00:00:00 Completed [facility] Hep B, Adol or Pedi Dosage 2003-11-20 00:00:00 Completed [facility] MMR 2003-11-20 00:00:00 Completed [facility] Polio (IPV/OPV) 2003-11-20 00:00:00 Completed [facility] Varicella (varivax)(chicken pox) 2003-11-20 00:00:00 Completed [facility] DTAP 2003-11-20 00:00:00 Completed [facility] HIB 3 Dose Schedule 2003-11-20 00:00:00 Completed [facility] Hep B, Adol or Pedi Dosage 2003-11-20 00:00:00 Completed [facility] MMR 2003-11-20 00:00:00 Completed [facility] Polio (IPV/OPV) 2003-11-20 00:00:00 Completed [facility] Varicella (varivax)(chicken pox) 2003-11-20 00:00:00 Completed [facility] DTAP 2003-11-20 00:00:00 Completed [facility] HIB 3 Dose Schedule 2003-11-20 00:00:00 Completed [facility] Hep B, Adol or Pedi Dosage 2003-11-20 00:00:00 Completed [facility] MMR 2003-11-20 00:00:00 Completed [facility] Polio (IPV/OPV) 2003-11-20 00:00:00 Completed [facility] Varicella (varivax)(chicken pox) 2003-11-20 00:00:00 Completed [facility] DTAP 2003-11-20 00:00:00 Completed [facility] HIB 3 Dose Schedule 2003-11-20 00:00:00 Completed [facility] Hep B, Adol or Pedi Dosage 2003-11-20 00:00:00 Completed [facility] MMR 2003-11-20 00:00:00 Completed [facility] Polio (IPV/OPV) 2003-11-20 00:00:00 Completed [facility] Varicella (varivax)(chicken pox) 2003-11-20 00:00:00 Completed [facility] DTAP 2003-11-20 00:00:00 Completed [facility] HIB 3 Dose Schedule 2003-11-20 00:00:00 Completed [facility] Hep B, Adol or Pedi Dosage 2003-11-20 00:00:00 Completed [facility] MMR 2003-11-20 00:00:00 Completed [facility] Polio (IPV/OPV) 2003-11-20 00:00:00 Completed [facility] Varicella (varivax)(chicken pox) 2003-11-20 00:00:00 Completed [facility] DTAP 2003-11-20 00:00:00 Completed [facility] HIB 3 Dose Schedule 2003-11-20 00:00:00 Completed [facility] Hep B, Adol or Pedi Dosage 2003-11-20 00:00:00 Completed [facility] MMR 2003-11-20 00:00:00 Completed [facility] Polio (IPV/OPV) 2003-11-20 00:00:00 Completed [facility] Varicella (varivax)(chicken pox) 2003-11-20 00:00:00 Completed [facility] DTAP 2003-11-20 00:00:00 Completed [facility] HIB 3 Dose Schedule 2003-11-20 00:00:00 Completed [facility] Hep B, Adol or Pedi Dosage 2003-11-20 00:00:00 Completed [facility] MMR 2003-11-20 00:00:00 Completed [facility] Polio (IPV/OPV) 2003-11-20 00:00:00 Completed [facility] Varicella (varivax)(chicken pox) 2003-11-20 00:00:00 Completed [facility] DTAP 2003-11-20 00:00:00 Completed [facility] HIB 3 Dose Schedule 2003-11-20 00:00:00 Completed [facility] Hep B, Adol or Pedi Dosage 2003-11-20 00:00:00 Completed [facility] MMR 2003-11-20 00:00:00 Completed [facility] Polio (IPV/OPV) 2003-11-20 00:00:00 Completed [facility] Varicella (varivax)(chicken pox) 2003-11-20 00:00:00 Completed [facility] DTAP 2003-11-20 00:00:00 Completed [facility] HIB 3 Dose Schedule 2003-11-20 00:00:00 Completed [facility] Hep B, Adol or Pedi Dosage 2003-11-20 00:00:00 Completed [facility] MMR 2003-11-20 00:00:00 Completed [facility] Polio (IPV/OPV) 2003-11-20 00:00:00 Completed [facility] Varicella (varivax)(chicken pox) 2003-11-20 00:00:00 Completed [facility] Hep B, Adol or Pedi Dosage 2003-02-25 00:00:00 Completed [facility] Polio (IPV/OPV) 2003-02-25 00:00:00 Completed [facility] Hep B, Adol or Pedi Dosage 2003-02-25 00:00:00 Completed [facility] Polio (IPV/OPV) 2003-02-25 00:00:00 Completed [facility] Hep B, Adol or Pedi Dosage 2003-02-25 00:00:00 Completed [facility] Polio (IPV/OPV) 2003-02-25 00:00:00 Completed [facility] Hep B, Adol or Pedi Dosage 2003-02-25 00:00:00 Completed [facility] Polio (IPV/OPV) 2003-02-25 00:00:00 Completed [facility] Hep B, Adol or Pedi Dosage 2003-02-25 00:00:00 Completed [facility] Polio (IPV/OPV) 2003-02-25 00:00:00 Completed [facility] Hep B, Adol or Pedi Dosage 2003-02-25 00:00:00 Completed [facility] Polio (IPV/OPV) 2003-02-25 00:00:00 Completed [facility] Hep B, Adol or Pedi Dosage 2003-02-25 00:00:00 Completed [facility] Polio (IPV/OPV) 2003-02-25 00:00:00 Completed [facility] Hep B, Adol or Pedi Dosage 2003-02-25 00:00:00 Completed [facility] Polio (IPV/OPV) 2003-02-25 00:00:00 Completed [facility] Hep B, Adol or Pedi Dosage 2003-02-25 00:00:00 Completed [facility] Polio (IPV/OPV) 2003-02-25 00:00:00 Completed [facility] Hep B, Adol or Pedi Dosage 2003-02-25 00:00:00 Completed [facility] Polio (IPV/OPV) 2003-02-25 00:00:00 Completed [facility] Hep B, Adol or Pedi Dosage 2002 00:00:00 Completed [facility] Hep B, Adol or Pedi Dosage 2002 00:00:00 Completed [facility] Hep B, Adol or Pedi Dosage 2002 00:00:00 Completed [facility] Hep B, Adol or Pedi Dosage 2002 00:00:00 Completed [facility] Hep B, Adol or Pedi Dosage 2002 00:00:00 Completed [facility] Hep B, Adol or Pedi Dosage 2002 00:00:00 Completed [facility] Hep B, Adol or Pedi Dosage 2002 00:00:00 Completed [facility] Hep B, Adol or Pedi Dosage 2002 00:00:00 Completed [facility] Hep B, Adol or Pedi Dosage 2002 00:00:00 Completed [facility] Hep B, Adol or Pedi Dosage 2002 00:00:00 Completed [facility] TDAP (ADACEL) VACCINE Unknown Completed [facility] HPV9 Unknown Completed [facility] Meningococcal Polysaccharide (groups A, C, Y and W-135) conjugate vaccine (MCV4P) Unknown Completed [facility] HPV9 Unknown Completed [facility] HPV9 Unknown Completed [facility] DTAP Unknown Completed [facility] DTAP Unknown Completed [facility] DTAP Unknown Completed [facility] DTAP Unknown Completed [facility] DTAP Unknown Completed [facility] HIB 3 Dose Schedule Unknown Completed [facility] HIB 3 Dose Schedule Unknown Completed [facility] HEPATITIS A Unknown [facility] HEPATITIS A Unknown Completed [facility] Hep B, Adol or Pedi Dosage Unknown Completed [facility] Hep B, Adol or Pedi Dosage Unknown Completed [facility] Hep B, Adol or Pedi Dosage Unknown Completed [facility] Hep B, Adol or Pedi Dosage Unknown Completed [facility] HPV Unknown Completed [facility] HPV Unknown Completed [facility] HPV Unknown Completed [facility] MMR Unknown Completed [facility] Pneumococcal 13 Conjugate, PCV13 (Prevnar 13) Unknown Completed [facility] Polio (IPV/OPV) Unknown Completed [facility] Polio (IPV/OPV) Unknown Completed [facility] Polio (IPV/OPV) Unknown Completed [facility] Polio (IPV/OPV) Unknown Completed [facility] Proquad (MMR/VARICELLA) Unknown Completed [facility] Varicella (varivax)(chicken pox) Unknown Completed [facility] TDAP (ADACEL) VACCINE Unknown Completed [facility] HPV9 Unknown Completed [facility] Meningococcal Polysaccharide (groups A, C, Y and W-135) conjugate vaccine (MCV4P) Unknown Completed [facility] HPV9 Unknown Completed [facility] HPV9 Unknown Completed [facility] DTAP Unknown Completed [facility] DTAP Unknown Completed [facility] DTAP Unknown Completed [facility] DTAP Unknown Completed [facility] DTAP Unknown Completed [facility] HIB 3 Dose Schedule Unknown Completed [facility] HIB 3 Dose Schedule Unknown Completed [facility] HEPATITIS A Unknown [facility] HEPATITIS A Unknown Completed [facility] Hep B, Adol or Pedi Dosage Unknown Completed [facility] Hep B, Adol or Pedi Dosage Unknown Completed [facility] Hep B, Adol or Pedi Dosage Unknown Completed [facility] Hep B, Adol or Pedi Dosage Unknown Completed [facility] HPV Unknown Completed [facility] HPV Unknown Completed [facility] HPV Unknown Completed [facility] MMR Unknown Completed [facility] Pneumococcal 13 Conjugate, PCV13 (Prevnar 13) Unknown Completed [facility] Polio (IPV/OPV) Unknown Completed [facility] Polio (IPV/OPV) Unknown Completed [facility] Polio (IPV/OPV) Unknown Completed [facility] Polio (IPV/OPV) Unknown Completed [facility] Proquad (MMR/VARICELLA) Unknown Completed [facility] Varicella (varivax)(chicken pox) Unknown Completed [facility] Vital Signs Vital Name Observation Time Observation Value Comments S ource Systolic blood pressure 2023-05-23 19:12:00 122 mm[Hg] [facility] Diastolic blood pressure 2023-05-23 19:12:00 98 mm[Hg] [facility] Heart rate 2023-05-23 19:12:00 68 /min [facility] Body temperature 2023-05-23 19:12:00 36.61 Senait [facility] Respiratory rate 2023-05-23 19:12:00 18 /min [facility] Body height 2023-05-23 19:12:00 162.6 cm [facility] Body weight 2023-05-23 19:12:00 95.255 kg [facility] BMI 2023-05-23 19:12:00 36.05 kg/m2 [facility] Oxygen saturation in Arterial blood by Pulse oximetry 2023-05-23 19:12:00 99 /min [facility] Systolic blood pressure 2023-02-24 00:41:00 112 mm[Hg] [facility] Diastolic blood pressure 2023-02-24 00:41:00 74 mm[Hg] [facility] Heart rate 2023-02-24 00:41:00 84 /min [facility] Body temperature 2023-02-24 00:41:00 36.94 Senait [facility] Respiratory rate 2023-02-24 00:41:00 20 /min [facility] Oxygen saturation in Arterial blood by Pulse oximetry 2023-02-24 00:41:00 98 /min [facility] Body height 2023-02-23 22:43:00 162.6 cm [facility] Body weight 2023-02-23 22:43:00 95.255 kg [facility] BMI 2023-02-23 22:43:00 36.05 kg/m2 [facility] Systolic blood pressure 2021-10-19 04:27:00 121 mm[Hg] [facility] Diastolic blood pressure 2021-10-19 04:27:00 79 mm[Hg] [facility] Heart rate 2021-10-19 04:27:00 107 /min [facility] Body temperature 2021-10-19 04:27:00 38.72 Senait [facility] Respiratory rate 2021-10-19 04:27:00 18 /min [facility] Body height 2021-10-19 04:27:00 160 cm [facility] Body weight 2021-10-19 04:27:00 90.719 kg [facility] BMI 2021-10-19 04:27:00 35.43 kg/m2 [facility] Body mass index (BMI) [Percentile] Per age and sex 2021-10-19 04:27:00 97.54 % [facility] Oxygen saturation in Arterial blood by Pulse oximetry 2021-10-19 04:27:00 99 /min [facility] Systolic blood pressure 2021-05-22 10:55:00 118 mm[Hg] [facility] Diastolic blood pressure 2021-05-22 10:55:00 70 mm[Hg] [facility] Heart rate 2021-05-22 10:55:00 105 /min [facility] Body temperature 2021-05-22 10:55:00 38.17 Senait [facility] Respiratory rate 2021-05-22 10:55:00 18 /min [facility] Body height 2021-05-22 10:55:00 162.6 cm [facility] Body weight 2021-05-22 10:55:00 97.523 kg [facility] BMI 2021-05-22 10:55:00 36.90 kg/m2 [facility] Oxygen saturation in Arterial blood by Pulse oximetry 2021-05-22 10:55:00 97 /min [facility] Systolic blood pressure 2021-03-12 12:22:00 102 mm[Hg] [facility] Diastolic blood pressure 2021-03-12 12:22:00 57 mm[Hg] [facility] Heart rate 2021-03-12 12:22:00 69 /min [facility] Body temperature 2021-03-12 12:22:00 37.06 Senait [facility] Respiratory rate 2021-03-12 12:22:00 18 /min [facility] Oxygen saturation in Arterial blood by Pulse oximetry 2021-03-12 12:22:00 97 /min [facility] Body height 2021-03-11 20:55:00 165.1 cm [facility] Body weight 2021-03-11 20:55:00 105.461 kg [facility] BMI 2021-03-11 20:55:00 38.69 kg/m2 [facility] Systolic blood pressure 2021-03-06 05:21:03 135 mm[Hg] [facility] Diastolic blood pressure 2021-03-06 05:21:03 82 mm[Hg] [facility] Heart rate 2021-03-06 05:21:03 96 /[facility] Body temperature 2021-03-06 05:21:03 37.22 Senait [facility] Respiratory rate 2021-03-06 05:21:03 20 /min [facility] Oxygen saturation in Arterial blood by Pulse oximetry 2021-03-06 05:21:03 98 /min [facility] Body height 2021-03-06 03:22:00 165.1 cm [facility] Body weight 2021-03-06 03:22:00 90.719 kg [facility] BMI 2021-03-06 03:22:00 33.28 kg/m2 [facility] Heart rate 2021-02-25 02:31:00 108 /min [facility] Systolic blood pressure 2021-02-25 01:21:00 123 mm[Hg] [facility] Diastolic blood pressure 2021-02-25 01:21:00 82 mm[Hg] [facility] Body temperature 2021-02-25 01:21:00 37.61 Senait [facility] Respiratory rate 2021-02-25 01:21:00 22 /min [facility] Body weight 2021-02-25 01:21:00 90.719 kg [facility] Oxygen saturation in Arterial blood by Pulse oximetry 2021-02-25 01:21:00 99 /min [facility] Systolic blood pressure 2019-10-22 15:39:00 113 mm[Hg] [facility] Diastolic blood pressure 2019-10-22 15:39:00 74 mm[Hg] [facility] Heart rate 2019-10-22 15:39:00 82 /min [facility] Body temperature 2019-10-22 15:39:00 36.83 Senait [facility] Respiratory rate 2019-10-22 15:39:00 16 /min [facility] Body height 2019-10-22 15:39:00 160 cm [facility] Body weight 2019-10-22 15:39:00 103.023 kg [facility] BMI 2019-10-22 15:39:00 40.23 kg/m2 [facility] Procedures Procedure Date / Time Performed Performing Clinicia n Source POCT TEST 2023-05-23 22:15:00 Tamiko Reynaga [facility] LIPASE 2023-05-23 20:07:00 Jennifer Reynaga [facility] COMP. METABOLIC PANEL (62154) 2023-05-23 20:07:00 Jennifer Reynaga [facility] CBC WITH DIFF 2023-05-23 20:07:00 Jennifer Reynaga [facility] URINALYSIS 2023-05-23 20:07:00 Jennifer Reynaga [facility] ASSIGNMENT OF BENEFITS 2023-05-23 19:45:58 Docto r Unassigned, [place] [facility] ASSIGNMENT OF BENEFITS 2023-02-23 23:29:30 Docto r Unassigned, [place] [facility] RAPID STREP SCREEN FOR GROUP A 2023-02-23 23:18:00 Thelma Garcia [facility] RAPID INFLUENZA A/B 2023-02-23 23:18:00 Jatinder Garcia [facility] COVID-19 (ID NOW RAPID TESTING) 2023-02-23 23:18:00 Thelma Garcia [facility] CONSENT/REFUSAL FOR DIAGNOSIS AND TREATMENT 2023-02-23 22:27:31 Doctor Unassigned, [place] [facility] RAPID INFLUENZA A/B 2021-10-19 04:38:00 Micha Vanessa [facility] NOTICE OF PRIVACY PRACTICES 2021-10-19 04:25:24 Doctor Unassigned, [place] [facility] CONSENT/REFUSAL FOR DIAGNOSIS AND TREATMENT 2021-10-19 04:25:07 Doctor Unassigned, [place] [facility] URINALYSIS 2021-05-22 11:31:00 Suzette Michele [facility] POCT TEST 2021-05-22 11:31:00 Suzette Michele [facility] COVID-19 (ID NOW RAPID TESTING) 2021-05-22 11:17:00 Suzette Michele [facility] CONSENT/REFUSAL FOR DIAGNOSIS AND TREATMENT 2021-05-22 10:19:37 Doctor Unassigned, [place] [facility] MAGNESIUM 2021-03-12 09:44:00 Anatoly Valdovinos [facility] BASIC METABOLIC PANEL (NA, K, CL, CO2, GLUCOSE, BUN, CREATININE, CA) 2021-03-12 09:44:00 Anatoly Valdovinos [facility] CBC WITH DIFF 2021-03-12 09:44:00 Anatoly Valdovinos [facility] COVID-19 (ID NOW RAPID TESTING) 2021-03-11 17:06:00 Solange Ford [facility] BLOOD CULTURE SCREEN 2021-03-11 17:05:00 Ashok Ford [facility] URINE CULTURE 2021-03-11 17:05:00 Solange Ford [facility] LACTIC ACID WHOLE BLOOD 2021-03-11 17:04:00 Solange Ford [facility] BLOOD CULTURE SCREEN 2021-03-11 16:35:00 Ashok Ford [facility] CT ABDOMEN PELVIS W CONTRAST 2021-03-11 15:56:47 Solange Ford [facility] LIPASE 2021-03-11 15:07:[address] [facility] COMP. METABOLIC PANEL (14546) 2021-03-11 15:07:00 Solange Ford [facility] CBC WITH DIFF 2021-03-11 15:07:00 Solange Ford [facility] URINALYSIS 2021-03-11 15:07:00 Solange Ford [facility] POCT TEST 2021-03-11 15:06:00 Tatiana Ford [facility] NOTICE OF PRIVACY PRACTICES 2021-03-11 14:51:22 Doctor Unassigned, [place] [facility] CONSENT/REFUSAL FOR DIAGNOSIS AND TREATMENT 2021-03-11 14:50:52 Doctor Unassigned, [place] [facility] XR CHEST 2 VW 2021-03-06 04:04:44 Jennifer Reynaga [facility] NOTICE OF PRIVACY PRACTICES 2021-03-06 03:15:08 Doctor Unassigned, [place] [facility] CONSENT/REFUSAL FOR DIAGNOSIS AND TREATMENT 2021-03-06 03:14:52 Doctor Unassigned, [place] [facility] COVID-19 (ID NOW RAPID TESTING) 2021-02-25 01:56:00 Micha Vanessa [facility] NOTICE OF PRIVACY PRACTICES 2021-02-25 01:15:24 Doctor Unassigned, [place] [facility] CONSENT/REFUSAL FOR DIAGNOSIS AND TREATMENT 2021-02-25 01:10:32 Doctor Unassigned, [place] [facility] Encounters Start Date/Time End Date/Time Encounter Type Admission Type Attending [facility] Facility Care Department Encounter ID Source 2021-08-08 22:53:54 Emergency [facility] [id number] [facility] 2021-08-08 22:05:35 Emergency [facility] [id number] [facility] 2021-08-08 20:09:33 Emergency [facility] [id number] [facility] 2023-05-23 14:13:00 2023-05-23 18:16:00 Emergency X JENNIFER REYNAGA [facility] ERT [id number] [facility] 2023-05-23 14:13:00 2023-05-23 18:16:00 Emergency Jennifer Reynaga [facility] 1.0.114 350.1.13.10 4.2.7.2.686 [id number] [facility] 2023-02-23 17:44:00 2023-02-23 19:46:00 Emergency X THELMA GARCIA [facility] ERT [id number] [facility] 2023-02-23 17:44:00 2023-02-23 19:46:00 Emergency Thelma Garcia [facility] 1.0.114 350.1.13.10 4.2.7.2.686 [id number] [facility] 2021-10-20 00:00:00 2021-10-20 00:00:00 Patient Secure Msg Gissell Ornelas [facility] BUSINESS SALES CONSULTANT [facility] 1.0.114 350.1.13.10 4.2.7.2.686 [id number] [facility] 2021-10-19 00:00:00 2021-10-19 00:00:00 Patient Secure Msg Doctor Unassigned, [place] [facility] 1.840.114 350.1.13.10 4.2.7.2.686 [id number] [facility] 2021-10-19 00:00:00 2021-10-19 00:00:00 Patient Secure Rachel Sanders [facility] BUSINESS SALES CONSULTANT [facility] [id number] 350.1.13.10 4.2.7.2.686 [id number] [facility] 2021-10-18 22:40:00 2021-10-18 23:11:00 Emergency X MICHA VANESSA [facility] ERT [id number] [facility] 2021-10-18 22:40:00 2021-10-18 23:11:00 Emergency Micha Vanessa [facility] 1.2840.114 350.1.13.10 4.2.7.2.686 [id number] [facility] 2021-05-22 05:58:00 2021-05-22 07:44:00 Emergency Suzette Michele [facility] 1.840.114 350.1.13.10 4.2.7.2.686 [id number] [facility] 2021-05-22 05:58:00 2021-05-22 07:44:00 Emergency X DORIANSUZETTE SANTOS [facility] ERT [id number] [facility] 2021-05-22 00:00:00 2021-05-22 00:00:00 Orders Only Doctor Unassigned, [place] [facility] 1.2840.114 350.1.13.10 4.2.7.2.686 [id number] [facility] 2021-03-11 09:58:00 2021-03-12 13:25:00 Emergency Solange Ford [facility] 1.2840.114 350.1.13.10 4.2.7.2.686 [id number] [facility] 2021-03-05 22:26:00 2021-03-06 00:33:00 Emergency Jennifer Reynaga [facility] [id number] 350.1.13.10 4.2.7.2.686 [id number] [facility] 2021-02-24 20:25:00 2021-02-24 21:57:00 Emergency Micha Vanessa [facility] [id number] 350.1.13.10 4.2.7.2.686 [id number] [facility] 2019-10-22 09:07:40 2019-10-22 09:41:44 [facility]ley [facility] BUSINESS SALES CONSULTANT [facility] [id number] 350.1.13.10 4.2.7.2.686 [id number] [facility] Results Test Description Test Time Test Comments Results Result Co mments Source [facility]ID NOW RAPID TESTING)2021-05-22 12:21:27* Test Item Value Reference Range Interpretation Comme nts SARS-CoV-2 Rapid ID NOW (test code = 87355-4) Positive Not Detected A EVERARDO (test code = EVERARDO) ID NOW COVID-19 As say is an isothermal nucleic acid amplification test intended for the qualitative detection of nucleic acid from SARS-CoV-2 viral RNA in nasopharyngeal (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 It is used under Emergency Use [...] clinically indicated. Lab Interpretation (test code = 55228-4) Abnormal [facility]21[facility]14 12:05:50* Test Item Value Reference Range Interpretation Comme nts APPEARANCE (test code = 7379455083) Clear Clear COLOR (test code = 2304928936) Yellow Yellow PH (test code = 4760119853) 4.8-8.0 SP GRAVITY (test code = 6191322393) 1.003-1.030 GLU U QUAL (test code = 1542932569) Normal Normal BLOOD (test code = 3155443141) 1+ Negative A KETONES (test code = 2953791539) Negative Negative PROTEIN (test code = 2887-8) Negative Negative UROBILIN (test code = 1819770697) Normal Normal BILIRUBIN (test code = 8645892072) Negative Negative NITRITE (test code = 8779330295) Negative Negative LEUK EMILIANO (test code = 7135431882) Negative Negative RBC/HPF (test code = 3370076581) See_Comment [Automated [employer]] The system which generated this result transmitted reference range: 0 - 3 HPF. The reference range was not used to interpret this result as normal/abnormal. WBC/HPF (test code = 1596309926) See_Comment [Automated [employer]] The system which generated this result transmitted reference range: 0 - 5 HPF. The reference range was not used to interpret this result as normal/abnormal. BACTERIA (test code = 8428806207) Few Negative A SQ EPITH (test code = 7119902781) HPF TRANS EPI (test code = 9346837977) <1 See_Comment [Automated [employer]] The system which generated this result transmitted reference range: <=1 HPF. The reference range was not used to interpret this result as normal/abnormal. Lab Interpretation (test code = 18569-4) Abnormal [facility] [id number] 11:31:00* Test Item Value Reference Range Interpretation Comme nts POCT PREG (test code = 1605) Negative On board controls acceptable with C Line (test code = 3574) Present POCT PREG LOT # (test code = 3575) HCG [id number] POCT PREG TEST DATE ( test code = 3576) 10/08/2022 Lab Interpretation (test cod e = 26847-0) Normal [facility] [id number] 17:42:24* Test Item Value Reference Range Interpretation Comme nts URINE CULTURE (test code = 630-4) 10,000 - 100,000 CFU/mL mixed aerobic organisms - suggests endogenous microbial contamination [facility] (NA, K, CL, CO2, GLUCOSE, BUN, CREATININE, CA)2021-03-12 11:27:06* Test Item Value Reference Range Interpretation Comme nts NA (test code = 8010724436) 137 mmol/L 135-145 K (test code = 6307365336) 3.1 mmol/L 3.5-5.0 L CL (test code = 5680464341) 103 mmol/L 98-108 CO2 TOTAL (test code = 3160073234) 27 mmol/L 23-31 AGAP (test code = 3298079849) 2-16 BUN (test code = 7231661458) 9 mg/dL 7-23 GLUCOSE (test code = 9073831602) 82 mg/dL 70-110 CREATININE (test code = 0649429398) 0.53 mg/dL 0.50-1.04 CALCIUM (test code = 5136269728) 8.9 mg/dL 8.6-10.6 eGFR (test code = 9596305821) mL/min/1.73m2 EVERARDO (test code = EVERARDO) Association [...] imaging tests). Lab Interpretation (test code = 88504-2) Abnormal [facility] Worth[facility] [id number] 11:22:32* Test Item Value Reference Range Interpretation Comme nts MAGNESIUM (test code = 9244602460) 2.1 mg/dL 1.7-2.4 Lab Interpretation (test cod e = 95016-9) Normal [facility] with [id number] 11:05:52* Test Item Value Reference Range Interpretation Comme nts WBC (test code = 6690-2) See_Comment [Automated [employer]] The system which generated this result transmitted reference range: 4.50 - 13.50 10*3/?L. The reference range was not used to interpret this result as normal/abnormal. RBC (test code = 789-8) See_Comment [Automated [employer]] The system which generated this result transmitted [...] 34.4 g/dL 32.0-36.0 RDW-SD (test code = 34719-3) 37.9 fL 38.5-49.0 L RDW-CV (test code = 788-0) 12.3 % 11.5-14.0 PLT (test code = 777-3) See_Comment [Automated messa ge] The system which generated this result transmitted reference range: 135 - 361 10*3/?L. The reference range was not used to interpret this result as normal/abnormal. MPV (test code = 45838-9) 10.1 fL 9.4-13.3 NRBC/100 WBC (test code = 5563768184) See_Comment [Automated [employer] ssage] The system which generated this result transmitted reference range: 0.0 - 10.0 /100 WBCs. The reference range was not used to interpret this result as normal/abnormal. NRBC x10^3 (test code = 2448774172) <0.01 See_Comment [Automated messa ge] The system which generated this result transmitted reference range: 10*3/?L. The reference range was not used to interpret this result as normal/abnormal. GRAN MAT (NEUT) % (test code = 770-8) 59.8 % IMM GRAN % (test code = 7978178294) 0.80 % LYMPH % (test code = 736-9) 26.3 % MONO % (test code = 5905-5) 12.3 % EOS % (test code = 713-8) 0.5 % BASO % (test code = 706-2) 0.3 % GRAN MAT x10^3(ANC) (test code = 9388808039) 3.91 10*3/uL 1.50-10.30 IMM GRAN x10^3 (test code = 4278697443) 0.05 10*3/uL 0.00-0.06 LYMPH x10^3 (test code = 731-0) 1.72 10*3/uL 0.70-7.40 MONO x10^3 (test code = 742-7) 0.80 10*3/uL 0.00-0.50 H EOS x10^3 (test code = 711-2) 0.03 10*3/uL 0.00-0.40 BASO x10^3 (test code = 704-7) <0.03 0.00-0.10 Lab Interpretation (test code = 39959-2) Abnormal [facility] (ID NOW RAPID TESTING)2021-03-11 18:10:27* Test Item Value Reference Range Interpretation Comme nts SARS-CoV-2 Rapid ID NOW (test code = 97231-1) Not Detected Not Detected EVERARDO (test code = EVERARDO) ID NOW COVID-19 As say is an isothermal nucleic acid amplification test intended for the qualitative detection of nucleic acid from SARS-CoV-2 viral RNA in nasopharyngeal (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 It is used under Emergency Use [...] clinically indicated. Lab Interpretation (test code = 79974-8) Normal [facility] Worth[facility] Whole [id number] 17:11:07* Test Item Value Reference Range Interpretation Comme nts LACTIC ACID (test code = 6329556855) 0.91 mmol/L 0.50-2.20 Lab Interpretation (test cod e = 52117-1) Normal [facility] A[facility]OM[facility] PELVIS W [id number] 16:28:25No acute abnormality identified. INDICATION: ?Abdominal abscess/infection [...] or abscess is noted.IMPRESSIONNo acute abnormality identified. [facility] [id number] 16:05:33* Test Item Value Reference Range Interpretation [...] 34.6 g/dL 32.0-36.0 RDW-SD (test code = 48489-2) 36.3 fL 38.5-49.0 L RDW-CV (test code = 788-0) 11.9 % 11.5-14.0 PLT (test code = 777-3) See_Comment H [Automated message] The system which generated this result transmitted reference range: 135 - 361 10*3/?L. The reference range was not used to interpret this result as normal/abnormal. MPV (test code = 80925-3) 9.6 fL 9.4-13.3 NRBC/100 WBC (test code = 2584239069) See_Comment [Automated message] The system which generated this result transmitted reference range: 0.0 - 10.0 /100 WBCs. The reference range was not used to interpret this result as normal/abnormal. NRBC x10^3 (test code = 0967715873) <0.01 See_Comment [Automated message] The system which generated this result transmitted reference range: 10*3/?L. The reference range was not used to interpret this result as normal/abnormal. GRAN MAT (NEUT) % (test code = 770-8) 86.3 % IMM GRAN % (test code = 9578908191) 0.90 % LYMPH % (test code = 736-9) 6.3 % MONO % (test code = 5905-5) 6.1 % EOS % (test code = 713-8) 0.1 % BASO % (test code = 706-2) 0.3 % GRAN MAT x10^3(ANC) (test code = 7560240149) 20.00 10*3/uL 1.50-10.30 H IMM GRAN x10^3 (test code = 8794722719) 0.21 10*3/uL 0.00-0.06 H LYMPH x10^3 (test code = 731-0) 1.45 10*3/uL 0.70-7.40 MONO x10^3 (test code = 742-7) 1.42 10*3/uL 0.00-0.50 H EOS x10^3 (test code = 711-2) <0.03 0.00-0.40 BASO x10^3 (test code = 704-7) 0.07 10*3/uL 0.00-0.10 Lab Interpretation (test code = 96874-0) [facility]:41:19* Test Item Value Reference Range Interpretation Comme nts APPEARANCE (test code = 5431184190) Hazy Clear A COLOR (test code = 0753478587) Yellow Yellow PH (test code = 6999403481) 4.8-8.0 SP GRAVITY (test code = 1911839066) 1.003-1.030 GLU U QUAL (test code = 2260783820) Normal Normal BLOOD (test code = 0163185836) 1+ Negative A KETONES (test code = 0624694284) Negative Negative PROTEIN (test code = 2887-8) Negative Negative UROBILIN (test code = 4803011040) Normal Normal BILIRUBIN (test code = 4115612742) Negative Negative NITRITE (test code = 9633422657) Negative Negative LEUK EMILIANO (test code = 7286757520) 500/uL Negative A RBC/HPF (test code = 7560423246) See_Comment H [Automated messa ge] The system which generated this result transmitted reference range: 0 - 3 HPF. The reference range was not used to interpret this result as normal/abnormal. WBC/HPF (test code = 9679639163) See_Comment H [Automated messa ge] The system which generated this result transmitted reference range: 0 - 5 HPF. The reference range was not used to interpret this result as normal/abnormal. BACTERIA (test code = 2343808267) Few Negative A MUCOUS (test code = 3605217746) Slight Negative LPF A SQ EPITH (test code = 2192299650) HPF Lab Interpretation (test code = 40510-8) [facility]normal [facility] Worth[facility] Metabolic Vvsab9429-91-08 15:37:26* Test Item Value Reference Range Interpretation Comme nts NA (test code = 0238583432) 137 mmol/L 135-145 K (test code = 8732523482) 3.9 mmol/L 3.5-5.0 CL (test code = 8743265504) 104 mmol/L 98-108 CO2 TOTAL (test code = 4558889534) 25 mmol/L 23-31 AGAP (test code = 2248329068) 2-16 BUN (test code = 0761499453) 15 mg/dL 7-23 GLUCOSE (test code = 1171317776) 106 mg/dL 70-110 CREATININE (test code = 1797217899) 0.54 mg/dL 0.50-1.04 TOTAL BILI (test code = 1359101482) 0.8 mg/dL 0.1-1.1 CALCIUM (test code = 7066788508) 9.4 mg/dL 8.6-10.6 T PROTEIN (test code = 0399248847) 7.9 g/dL 6.3-8.2 ALBUMIN (test code = 8834465362) 4.5 g/dL 3.5-5.0 ALK PHOS (test code = 7455754413) 87 U/L 34-122 ALTv (test code = 1742-6) 21 U/L 5-35 AST(SGOT) (test code = 9348624782) 21 U/L 13-40 eGFR (test code = 4348561632) mL/min/1.73m2 EVERARDO (test code = EVERARDO) Association [...] or urine or abnormalities in imaging tests). [facility] WorthLipase, Phkly5466-63-00 15:36:45* Test Item Value Reference Range Interpretation Comme nts LIPASE (test code = 5444332302) 52 U/L 0-220 Lab Interpretation (test cod e = 07689-7) Normal [facility] WorthPOCT Auka3498-04-74 15:06:00* Test Item Value Reference Range Interpretation Comme nts POCT PREG (test code = 1605) negative On board controls acceptable with C Line (test code = 3574) present POCT PREG LOT # (test code = 3575) [id number] POCT PREG TEST DATE ( test code = 3576) 09/07/2022 Lab Interpretation (test cod e = 56746-9) Normal [facility] WorthCOVID[facility] (ID NOW RAPID TESTING)2021-02-25 02:15:05* Test Item Value Reference Range Interpretation Comme nts SARS-CoV-2 Rapid ID NOW (test code = 53971-7) Not Detected Not Detected EVERARDO (test code = EVERARDO) ID NOW COVID-19 As say is an isothermal nucleic acid amplification test intended for the qualitative detection of nucleic acid from SARS-CoV-2 viral RNA in nasopharyngeal (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 It is used under Emergency Use [...] clinically indicated. Lab Interpretation (test code = 59653-2) Normal [facility] Notes Date/Time Note Provider Source 2023-05-23 18:15:58 zCtjpr4GInl9T5AcVQzK QkgjNFi +rSQYiFtz4RqJShwpm2+9zlYFtF 5uclzK8JVt5754-53-78F93:15: 58 Pt given printed and verbal discharge [...] with steady gait, in no apparent distress, 96360-3Elkilymud department XgptJW6065-07-73P97:16:37Em ergency department NoteTXT1.2.840.357984.1.13. 104.2.7.2.383627|[id number] AVAvailable for patient bdtc08496-9XfobMG438681981O trino Batista [address] BlvdGalvestonGalvesst. lawrence rehabilitation centerTXTX7 [id number] TLMN7396-16-80B33:16:371.2. 840.892282.1.72.3.15|1.2.84 0.138885.1.13.104.2.7.2.727 [id number] Shira Batista RN [facility] 2023-05-23 14:11:47 OMSZOOdT335C6OrcycXB gLIQiFA T9VPuXsuHgGAu70Xb9HszqvH5vX CaBSv5UpZI9792-78-94E40:11: 47 Patient to ED for vomiting x 3 days. Her abdomen feels like it is on fire. Every time she eats she vomits. She felt like this last time and she got admitted per patient. 86070-9Oiygbbkem department Triage yjyrNT0970-01-78O64:12:28Em ergency department Triage noteTXT1.2.840.861563.1.13. 104.2.7.2.577567|[id number] AVAvailable for patient zlkv60030-4Qfzfxbhuc department [id number] D Wierzbicki RNUT[address]vdLatrobe HospitalTXTX7 [id number] WFOR5067-60-26Z43:12:281.2. 840.552897.1.72.3.15|1.2.84 0.207250.1.13.104.2.7.2.727 [id number] Ced Womack RN [facility]"
--- NOTE | 2023-12-02 11:26 | EDPHYS ---
Physician Documentation [facility] Name: Francheska Tabares Age: 23 yrs Sex: Female : 2000 Arrival Date: 12/02/2023 Time: 11: Bed 15 Private MD: ED Physician Pete Campbell HPI: 12/02 11:18 This 23 yrs old Female presents to ER via Ambulatory with complaints of STD screening. [facility] 11:18 23-year-old female presents to the ER requesting STD screening. She initially told the [facility] triage nurse that she had had dysuria and painful sex for the past 2 days. She later stated that she actually was not having any symptoms and was just told by a family member that she was supposed to state that she had symptoms. She reports that her and her boyfriend recently broke up and that she has a new sexual partner, and just did not know where to get screened for STDs.. Historical: - Allergies: 11:19 No Known Allergies; hb - Home Meds: 11:19 None [Active]; hb - PMHx: 11:19 None; hb - PSHx: 11:19 Right Ankle; hb - Immunization history:: Adult Immunizations up to date. - Social history:: Smoking status: Patient denies any tobacco usage or history of. ROS: 11:18 Constitutional: Negative for fever, chills, and weight loss, Cardiovascular: Negative [facility] for chest pain, palpitations, and edema, Respiratory: Negative for shortness of breath, cough, wheezing, and pleuritic chest pain, : Negative for injury, bleeding, discharge, and swelling, Skin: Negative for injury, rash, and discoloration, Neuro: Negative for headache, weakness, numbness, tingling, and seizure, 11:18 All other systems are negative, Exam: 11:18 Constitutional: This is a well developed, well nourished patient who is awake, alert, [facility] and in no acute distress. Cardiovascular: Regular rate and rhythm with a normal S1 and S2. No gallops, murmurs, or rubs. Normal PMI, no JVD. No pulse deficits. Respiratory: Lungs have equal breath sounds bilaterally, clear to auscultation and percussion. No rales, rhonchi or wheezes noted. No increased work of breathing, no retractions or nasal flaring. Back: No spinal tenderness. No costovertebral tenderness. Full range of motion. Skin: Warm, dry with normal turgor. Normal color with no rashes, no lesions, and no evidence of cellulitis. MS/ Extremity: Pulses equal, no cyanosis. Neurovascular intact. Full, normal range of motion. Neuro: Awake and alert, GCS 15, oriented to person, place, time, and situation. Normal gait. Vital Signs: 11:18 BP 130 / 85; Pulse 65; Resp 16; Temp 98.3; Pulse Ox 100% on R/A; Pain 2/10; hb 11:18 Pain Scale: Adult hb MDM: 11:06 Patient medically screened. [facility] 11:18 Differential diagnosis: STD screening, STD exposure. Data reviewed: vital signs, nurses [facility] notes. Counseling: I had a detailed discussion with the patient and/or guardian regarding the historical points, exam findings, and any diagnostic results supporting the discharge/admit diagnosis, the need for outpatient follow up, for definitive care, to return to the emergency department if symptoms worsen or persist or if there are any questions or concerns that arise at home. Special discussion: Provided the patient community resources for clinics that provide free STD testing.. Administered Medications: No medications were administered Disposition: 12:41 Co-signature as Attending Physician, Pete Campbell MD I agree with the assessment and kdr plan of care. Disposition Summary: 12/02/23 11:25 Discharge Ordered Notes: Location: Home [facility] Problem: new [facility] Symptoms: are unchanged [facility] Condition: Stable [facility] Diagnosis - STD Screening [facility] Followup: [facility] - With: Private Physician - When: As needed - Reason: Discharge Instructions: - Discharge Summary Sheet [facility] - Safe Sex [facility] - Preventing Sexually Transmitted Infections, Adult [facility] Forms: - Medication Reconciliation Form [facility] - Thank You Letter [facility] - Patient Portal Instructions [facility] - Leadership Thank You Letter [facility] Signatures: Pete Campbell MD MD kdr Baxter, Heather, RN RN Mary Valles FNP LEAD BASED PAINT TECHNICIAN [facility]
--- NOTE | 2023-12-02 11:26 | ER ---
Nurse's Notes [facility] Name: Francheska Tabares Age: 23 yrs Sex: Female : 2000 Arrival Date: 12/02/2023 Time: 11:02 Bed 15 Private MD: Diagnosis: STD Screening Presentation: 12/02 11:18 Chief complaint: Burning with urination and pelvic pain x 1 week. Coronavirus screen: hb At this time, the client does not indicate any symptoms associated with coronavirus-19. Ebola Screen: No symptoms or risks identified at this time. Initial Sepsis Screen: Does the patient meet any 2 criteria? No. Patient's initial sepsis screen is negative. Does the patient have a suspected source of infection? No. Patient's initial sepsis screen is negative. Risk Assessment: Do you want to hurt yourself or someone else? Patient reports no desire to harm self or others. Onset of symptoms was November 25, 2023. 11:18 Method Of Arrival: Ambulatory hb 11:18 Acuity: NICHO 4 hb Triage Assessment: 11:19 General: Appears in no apparent distress. Behavior is calm, cooperative. Pain: Pain hb currently is 2 out of 10 on a pain scale. Neuro: Level of Consciousness is awake, alert, obeys commands, Oriented to person, place, time, situation. Cardiovascular: Patient's skin is warm and dry. Respiratory: Respiratory effort is even, unlabored, Respiratory pattern is regular, symmetrical. Historical: - Allergies: 11:19 No Known Allergies; hb - Home Meds: 11:19 None [Active]; hb - PMHx: 11:19 None; hb - PSHx: 11:19 Right Ankle; hb - Immunization history:: Adult Immunizations up to date. - Social history:: Smoking status: Patient denies any tobacco usage or history of. Screenin:20 [facility] ED Fall Risk Assessment (Adult) Score/Fall Risk Level 0 - 2 = Low Risk hb Oriented to surroundings, Maintained a safe environment, Educated pt \T\ family on fall prevention, incl call for assistance when getting out of bed. Abuse screen: Denies threats or abuse. Denies injuries from another. Nutritional screening: No deficits noted. Tuberculosis screening: No symptoms or risk factors identified. Assessment: 11:34 General: Appears in no apparent distress. Behavior is calm, cooperative. Neuro: Level hb of Consciousness is awake, alert, obeys commands, Oriented to person, place, time, situation. Cardiovascular: Patient's skin is warm and dry. Respiratory: Respiratory effort is even, unlabored, Respiratory pattern is regular, symmetrical. Vital Signs: 11:18 BP 130 / 85; Pulse 65; Resp 16; Temp 98.3; Pulse Ox 100% on R/A; Pain 2/10; hb 11:18 Pain Scale: Adult hb ED Course: 11:03 Patient arrived in ED. rg4 11:06 Mary Barnes FNP [facility] jh7 11:06 Pete Campbell MD is Attending Physician. 7 11:18 Srinivas Crum, RN is Primary Nurse. rs5 11:19 Triage completed. hb 11:19 Arm band placed on. hb 11:20 Patient has correct armband on for positive identification. hb 11:35 Provided Education on: [facility] - services, location, contact info. hb 11:35 No provider procedures requiring assistance completed. Patient did not have IV access hb during this emergency room visit. Administered Medications: No medications were administered Medication: 11:34 VIS not applicable for this client. hb Outcome: 11:25 Discharge ordered by . 7 11:34 Patient left the ED. rs5 11:35 Discharged to home ambulatory, hb 11:35 Condition: stable 11:35 Discharge instructions given to patient, Instructed on discharge instructions, follow up and referral plans. Demonstrated understanding of instructions, follow-up care, Signatures: Carly Tierney RN RN hb Garcia, Rubi 4 Mary Barnes FNP [place] [address] Srinivas Crum, BERNIE GIBBS [facility]
[2023-12-02 12:06] VITALS: BP 130/85; TEMP 98.3; O2SAT 100
== END ==
LOC: ER 11:02
DX: Z11.3 Encounter for screening for infections with a predominantly sexual mode of transmission (principal)
CPT/HCPCS: 99282

== ENCOUNTER 2024-01-17 06:06 | Emergency (ER) | payer SELFPAY ==
--- OUTSIDE RECORDS SUMMARY | 2024-01-17 06:10 | XMS REPORT | Continuity of Care Document ---
Author Name Unknown Address [address] [facility] [place] [address] [facility] thconnect Address [address] [facility] [address] [place] [address] Care Team Providers Care [place] Swage Operator Name Role Phone Pcp, Patient Does Not Have A Primary Care Physic sissy JENNIFER REYNAGA Attending Clinician Unavailable Jennifer Toney Attending Clinician THELMA GARCIA Attending Clinician Unavailable Thelma Gore Attending Clinician [phone] Ceci GIBBS, Gissell Attending Clinician Monse vailable Doctor Unassigned, [place] Attending Clinician U navailable AkinRachel Mir Attending Clinician + MICHA VANESSA Attending Clinician Unavailable Micha Zamudio Attending Clinician [phone] Suzette Michele MD Attending Clinician [phone] SUZETTE MICHELE Attending Clinician Unavailable Solange Ford MD Attending Clinician [phone] Anatoly Valdovinos MD Attending Clinician [phone] Visit, [facility] Nurse Attending Clinician Anatoly Peter MD Admitting Clinician [phone] Payers Payer Name Policy Type Policy Number Effective Date Expirati on Date Source [facility] ANTONIO MOORE [id number] 2017 00:00:00 Problems Condition Name Condition Details Condition Category Status Onset Date Resolution Date Last Treatment Date Treating Clinician Comments Source Vomiting Vomiting Disease Active 03-11 00:00: 00 [facility] Obesity (BMI 30-39.9) Obesity (BMI 30-39.9) Disease Active 03-11 00:00: 00 [facility] BMI 39.0-39.9, adult BMI 39.0-39.9, adult Disease Active 2018-10 00:00: 00 [facility] Sexually active child Sexually active child Disease Active 2018-10 00:00: 00 [facility] Depo-Prove ra contracept dash status Depo-Prove ra contracept dash status Disease Active 10-18 00:00: 00 [facility] Screening examinatio n for STD (sexually transmitte d disease) Screening examinatio n for STD (sexually transmitte d disease) Disease Active 2017-10 00:00: 00 [facility] Over weight Over weight Disease Active 2017-10 00:00: 00 [facility] control control Disease Active 07-04 00:00: 00 [facility] Allergies, Adverse Reactions, Alerts Allergy Name Allergy Type Status Severity Reaction(s) Onset Date Inactive Date Treating Clinician Comments Source NO KNOWN ALLERGIE S Drug Class Active [facility] Social History Social Habit Start Date Stop Date Quantity Comments Source History SDOH Alcohol Comment [facility] Gender identity [facility]OH [facility] History SDOH Alcohol Binge [facility] Exposure to SARS-CoV-2 (event) 2023-02-13 00:00:00 2023-02-23 17:41:00 Not sure [facility] Alcohol intake 2021-10-18 00:00:00 2021-10-18 00:00:00 0 /d [facility] Tobacco use and exposure 2021-03-11 00:00:00 2021-03-11 00:00:00 Smokeless tobacco non-user [facility] Education 2021-03-11 00:00:00 2021-03-11 00:00:00 13 [facility] History of Social function 2020-05-14 00:00:00 2020-05-14 00:00:00 [facility] History SDOH Alcohol Frequency 2019-07-16 00:00:00 2019-07-16 00:00:00 1 [facility] Sex Assigned At 2002 00:00:00 2000 00:00:00 [facility] Smoking Status Start Date Stop Date Source Never smoked tobacco [facility] Medications Ordered Medication Name Filled Medication Name Start Date Stop Date Current Medication? Ordering Clinician Indication Dosage Frequency Signature (SIG) Comments Components Source maalox:diph enhydrAMINE :lidocaine 2 % viscous 1:1:1 (FIRST-MOUT HWASH BLM) oral suspension 15 mL 05-23 21:00: 00 05-23 22:18 :00 No 15mL 15 mL, Oral, ONCE, 1 dose, On Mon05/23/23 at 1600, Routine [facility] pantoprazol e (PROTONIX) injection 40 mg 05-23 21:00: 00 05-23 22:17 :00 No 40mg 40 mg, Slow IV Push, ONCE, 1 dose, On Mon05/23/23 at 1600 [facility] ondansetron (ZOFRAN (PF)) injection 4 mg 05-23 21:00: 00 05-23 22:17 :00 No 4mg 4 mg, Slow IV Push, ONCE, 1 dose, On Mon05/23/23 at 1600, [facility] ondansetron 4 mg disintegrat ing tablet 05-23 00:00: 00 Yes [id number] 4mg Take 1 tablet by mouth every 8 (eight) hours as needed for Nausea and Vomiting (N/V). [facility] famotidine (PEPCID) 20 mg tablet 05-23 00:00: 00 06-23 04:59 :00 No [id number] 20mg Take 1 tablet by mouth in the morning and 1 tablet in the evening. Do all this for 30 days. [facility] predniSONE (DELTASONE) tablet 10 mg 02-24 00:30: 00 02-24 00:39 :00 No 10mg 10 mg, Oral, ONCE, 1 dose, On Mon02/23/23 at 1930, [facility] amoxicillin -clavulanat e (AUGMENTIN) 875-125 mg per tablet 1 tablet 02-24 00:28: 00 02-24 00:38 :00 No 1{tbl} 1 tablet, Oral, ONCE, 1 dose, On Mon02/23/23 at 1930, LEOLA
Re ason for Anti-Infec tive: Documented Infection< br>Documen candido Infection Site: HEENT
D uration of Therapy: Other (see Comments) [facility] ketorolac (TORADOL) injection 30 mg 02-23 23:09: 00 02-23 23:23 :00 No 30mg 30 mg, Intramuscu lar, ONCE, 1 dose, On Mon02/23/23 at 1815, [facility] amoxicillin -clavulanat e 875-125 mg per tablet 02-23 00:00: 00 Yes [id number] 1{tbl} Take 1 tablet by mouth every 12 (twelve) hours. [facility] predniSONE 10 mg tablet 02-23 00:00: 00 02-27 04:59 :00 No [id number] 30mg Take 3 tablets by mouth in the morning for 3 days. [facility] ibuprofen (IBU) tablet 600 mg 10-19 05:45: 00 10-19 04:40 :00 No 600mg 600 mg, Oral, ONCE, 1 dose, On 10/18/21 at 2345, LEOLA [facility] HYDROcodone -acetaminop hen (NORCO) 10-325 mg tablet 1 tablet 05-22 13:15: 00 05-22 12:30 :00 No 1{tbl} 1 tablet, Oral, ONCE, 1 dose, 05/22/21 at 0815, Routine [facility] ibuprofen 800 mg tablet 05-22 00:00: 00 02-23 00:00 :00 No [id number] 800mg Take 1 tablet by mouth every 8 (eight) hours as needed for Pain (scale 4-6) or Temp > 38.5 C. [facility] cefTRIAXone (ROCEPHIN) 1,000 mg in NaCl 0.9% (NS) 50 mL MINI-BAG 03-12 16:00: 00 03-12 16:18 :00 No 1000mg 1,000 mg, IV Piggyback, ONCE, 1 dose, Mon03/12/21 at 1100, 50 mL
Reas on for Anti-Infec tive: Empiric Therapy for Suspected Infection< br>Empiric Therapy Site: Urine
D uration of therapy: 72 hours [facility] KCL (KLOR-CON M20) tablet 40 mEq 03-12 12:45: 00 03-12 13:07 :00 No 40meq 40 mEq, Oral, ONCE, 1 dose, Mon03/12/21 at 0745, Routine [facility] morpHINE injection 4 mg 03-12 07:16: 17 Yes 4mg 4 mg, Slow IV Push, Q4HPRN, Starting Mon03/12/21 at 0216, Until Discontinu ed, Routine, Pain (scale 7-10) [facility] pantoprazol e (PROTONIX) 40 mg in NaCl 0.9% (NS) 100 mL MINI-BAG 03-12 00:15: 00 Yes 40mg 40 mg, IV Piggyback, Q24H, First dose on Elizabeth 03/11/21 at 1915, Until Discontinu ed, 100 mL [facility] ondansetron 4 mg tablet 03-12 00:00: 00 03-23 04:59 :00 No [id number] 4mg Take 1 tablet by mouth every 8 (eight) hours for 10 days. [facility] cephALEXin 500 mg capsule 03-12 00:00: 00 03-16 04:59 :00 No [id number] 500mg Take 1 capsule by mouth 2 (two) times daily for 3 days. [facility] enoxaparin (LOVENOX) injection 30 mg 03-11 22:00: 00 Yes 30mg 30 mg, Subcutaneo us, DAILY, First dose on Elizabeth 03/11/21 at 1700, Until Discontinu ed, Routine [facility] D5W-LR IV infusion 1,000 mL 03-11 21:45: 00 Yes 1000mL at 125 mL/hr, IV Infusion, CONTINUOUS , Starting Elizabeth 03/11/21 at 1645, Until Discontinu ed, Routine [facility] morpHINE injection 4 mg 03-11 21:15: 00 03-11 20:32 :00 No 4mg 4 mg, Slow IV Push, ONCE, 1 dose, Elizabeth 03/11/21 at 1615, STAT [facility] ondansetron (ZOFRAN (PF)) injection 4 mg 03-11 20:38: 54 Yes 4mg 4 mg, Slow IV Push, Q6HPRN, Starting Elizabeth 03/11/21 at 1538, Until Discontinu ed, Routine, Nausea and Vomiting (N/V) [facility] acetaminoph en-codeine (TYLENOL #3) 300-30 mg tablet 1 tablet 03-11 20:38: 49 03-13 20:37 :49 No 1{tbl} 1 tablet, Oral, Q6HPRN, Starting Elizabeth 03/11/21 at 1538, Until 03/13/21 at 1537, Routine, Pain (scale 4-6) [facility] acetaminoph en (TYLENOL) tablet 650 mg 03-11 20:38: 42 Yes 650mg 650 mg, Oral, Q6HPRN, Starting Elizabeth 03/11/21 at 1538, Until Discontinu ed, Routine, Pain (scale 1-3) [facility] cefTRIAXone (ROCEPHIN) 1,000 mg in NaCl 0.9% (NS) 50 mL MINI-BAG 03-11 18:00: 00 03-11 17:41 :00 No 1000mg 1,000 mg, IV Piggyback, ONCE, 1 dose, Elizabeth 03/11/21 at 1300, 50 mL
Reas on for Anti-Infec tive: Empiric Therapy for Suspected Infection< br>Empiric Therapy Site: Abdominal< br>Duratio n of therapy: 72 hours [facility] iopamidol (ISOVUE 370-500 mL) injection 120 mL 03-11 17:00: 00 03-11 17:00 :00 No [id number] 120mL 120 mL, Intravenou s, ONCE, 1 dose, Elizabeth 03/11/21 at 1200, Routine [facility] morpHINE injection 4 mg 03-11 16:45: 00 03-11 15:43 :00 No 4mg 4 mg, Slow IV Push, ONCE, 1 dose, Elizabeth 03/11/21 at 1145, STAT [facility] ondansetron (ZOFRAN (PF)) injection 4 mg 03-11 16:30: 00 03-11 15:41 :00 No 4mg 4 mg, Slow IV Push, ONCE, 1 dose, Elizabeth 03/11/21 at 1130, LEOLA [facility] NaCl 0.9% (NS) bolus infusion 1,000 mL 03-11 16:30: 00 03-11 19:19 :00 No 1000mL at 999 mL/hr, 1,000 mL, IV Infusion, ONCE, 1 dose, Elizabeth 03/11/21 at 1130, STAT [facility] sodium chloride (NS) injection 5 mL 03-11 14:57: 42 Yes 5mL 5 mL, Intravenou s, PRN, Starting Elizabeth 03/11/21 at 0957, Until Discontinu ed, Routine, IV line flushing [facility] codeine-gua ifenesin (ROBITUSSIN AC) 10-100 mg/5 mL solution 10 mL 03-06 05:00: 00 03-06 04:26 :00 No 10mL 10 mL, Oral, ONCE, 1 dose, 03/06/21 at 0000, LEOLA [facility] dexamethaso ne (DECADRON PHOSPHATE) injection 10 mg 03-06 05:00: 00 03-06 04:19 :00 No 10mg 10 mg, Intramuscu lar, ONCE, 1 dose, 03/06/21 at 0000, STAT [facility] albuterol 90 mcg/actuati on inhaler 03-06 00:00: 00 05-22 00:00 :00 No [id number] 2{puff} Inhale 2 Puffs every 4 (four) hours as needed for Wheezing or Shortness of Breath. [facility] methylPREDN ISolone (MEDROL, TILA,) 4 mg tablets 03-06 00:00: 00 03-12 00:00 :00 No [id number] Take by mouth SEE-INSTRU CTIONS. follow package directions [facility] azithromyci n 250 mg tablet 03-06 00:00: 00 03-12 00:00 :00 No [id number] 250mg Take 1 tablet by mouth daily. Take 500 mg day 1, then 250 mg days 2 to 5. [facility] codeine-gua ifenesin 10-100 mg/5 mL solution 03-06 00:00: 00 03-12 00:00 :00 No [id number] 10mL Take 10 mL by mouth every 6 (six) hours as needed for Cough for up to 7 days. Indication s: acute pain [facility] benzonatate 100 mg capsule 02-24 00:00: 00 03-12 00:00 :00 No [id number] 100mg Take 1 capsule by mouth 3 (three) times daily as needed for Cough. [facility] predniSONE 20 mg tablet 02-24 00:00: 00 03-01 04:59 :00 No [id number] 20mg Take 1 tablet by mouth 2 (two) times daily for 4 days. [facility] medroxyPROG ESTERone (DEPO-PROVE RA) injection 150 mg 2018-10 15:00: 00 06-30 14:59 :00 No [id number] 150mg [facility] traMADOL (ULTRAM) 50 mg tablet 03-24 00:00: 00 03-12 00:00 :00 No 50mg Take 1 tablet by mouth every 6 (six) hours as needed for Pain (scale 4-6). [facility] Immunizations Ordered Immunization Name Filled Immunization Name Date Status Comments Source HPV 2018-10-18 00:00:00 Completed [facility] HPV9 2018-10-18 00:00:00 Completed [facility] HPV 2018-10-18 00:00:00 Completed [facility] HPV9 2018-10-18 00:00:00 Completed [facility] HPV 2018-10-18 00:00:00 Completed [facility] HPV9 2018-10-18 00:00:00 Completed [facility] HPV 2018-10-18 00:00:00 Completed [facility] HPV9 2018-10-18 00:00:00 Completed [facility] HPV 2018-10-18 00:00:00 Completed [facility] HPV9 2018-10-18 00:00:00 Completed [facility] HPV 2018-10-18 00:00:00 Completed [facility] HPV9 2018-10-18 00:00:00 Completed [facility] HPV 2018-10-18 00:00:00 Completed [facility] HPV9 2018-10-18 00:00:00 Completed [facility] HPV 2018-10-18 00:00:00 Completed [facility] HPV9 2018-10-18 00:00:00 Completed [facility] HPV 2018-10-18 00:00:00 Completed [facility] HPV9 2018-10-18 00:00:00 Completed [facility] HPV 2018-10-18 00:00:00 Completed [facility] HPV9 2018-10-18 00:00:00 Completed [facility] HPV 2018-07-18 00:00:00 Completed [facility] HPV9 2018-07-18 00:00:00 Completed [facility] HPV 2018-07-18 00:00:00 Completed [facility] HPV9 2018-07-18 00:00:00 Completed [facility] HPV 2018-07-18 00:00:00 Completed [facility] HPV9 2018-07-18 00:00:00 Completed [facility] HPV 2018-07-18 00:00:00 Completed [facility] HPV9 2018-07-18 00:00:00 Completed [facility] HPV 2018-07-18 00:00:00 Completed [facility] HPV9 2018-07-18 00:00:00 Completed [facility] HPV 2018-07-18 00:00:00 Completed [facility] HPV9 2018-07-18 00:00:00 Completed [facility] HPV 2018-07-18 00:00:00 Completed [facility] HPV9 2018-07-18 00:00:00 Completed [facility] HPV 2018-07-18 00:00:00 Completed [facility] HPV9 2018-07-18 00:00:00 Completed [facility] HPV 2018-07-18 00:00:00 Completed [facility] HPV9 2018-07-18 00:00:00 Completed [facility] HPV 2018-07-18 00:00:00 Completed [facility] HPV9 2018-07-18 00:00:00 Completed [facility] HPV 2015-05-22 00:00:00 Completed [facility] TDAP (ADACEL) VACCINE 2015-05-22 00:00:00 Completed [facility] HPV9 2015-05-22 00:00:00 Completed [facility] Meningococcal Polysaccharide (groups A, C, Y and W-135) conjugate vaccine (MCV4P) 2015-05-22 00:00:00 Completed [facility] HPV 2015-05-22 00:00:00 Completed [facility] TDAP (ADACEL) VACCINE 2015-05-22 00:00:00 Completed [facility] HPV9 2015-05-22 00:00:00 Completed [facility] Meningococcal Polysaccharide (groups A, C, Y and W-135) conjugate vaccine (MCV4P) 2015-05-22 00:00:00 Completed [facility] HPV 2015-05-22 00:00:00 Completed [facility] TDAP (ADACEL) VACCINE 2015-05-22 00:00:00 Completed [facility] HPV9 2015-05-22 00:00:00 Completed [facility] Meningococcal Polysaccharide (groups A, C, Y and W-135) conjugate vaccine (MCV4P) 2015-05-22 00:00:00 Completed [facility] HPV 2015-05-22 00:00:00 Completed [facility] TDAP (ADACEL) VACCINE 2015-05-22 00:00:00 Completed [facility] HPV9 2015-05-22 00:00:00 Completed [facility] Meningococcal Polysaccharide (groups A, C, Y and W-135) conjugate vaccine (MCV4P) 2015-05-22 00:00:00 Completed [facility] HPV 2015-05-22 00:00:00 Completed [facility] TDAP (ADACEL) VACCINE 2015-05-22 00:00:00 Completed [facility] HPV9 2015-05-22 00:00:00 Completed [facility] Meningococcal Polysaccharide (groups A, C, Y and W-135) conjugate vaccine (MCV4P) 2015-05-22 00:00:00 Completed [facility] HPV 2015-05-22 00:00:00 Completed [facility] TDAP (ADACEL) VACCINE 2015-05-22 00:00:00 Completed [facility] HPV9 2015-05-22 00:00:00 Completed [facility] Meningococcal Polysaccharide (groups A, C, Y and W-135) conjugate vaccine (MCV4P) 2015-05-22 00:00:00 Completed [facility] HPV 2015-05-22 00:00:00 Completed [facility] TDAP (ADACEL) VACCINE 2015-05-22 00:00:00 Completed [facility] HPV9 2015-05-22 00:00:00 Completed [facility] Meningococcal Polysaccharide (groups A, C, Y and W-135) conjugate vaccine (MCV4P) 2015-05-22 00:00:00 Completed [facility] HPV 2015-05-22 00:00:00 Completed [facility] TDAP (ADACEL) VACCINE 2015-05-22 00:00:00 Completed [facility] HPV9 2015-05-22 00:00:00 Completed [facility] Meningococcal Polysaccharide (groups A, C, Y and W-135) conjugate vaccine (MCV4P) 2015-05-22 00:00:00 Completed [facility] HPV 2015-05-22 00:00:00 Completed [facility] TDAP (ADACEL) VACCINE 2015-05-22 00:00:00 Completed [facility] HPV9 2015-05-22 00:00:00 Completed [facility] Meningococcal Polysaccharide (groups A, C, Y and W-135) conjugate vaccine (MCV4P) 2015-05-22 00:00:00 Completed [facility] HPV 2015-05-22 00:00:00 Completed [facility] TDAP (ADACEL) VACCINE 2015-05-22 00:00:00 Completed [facility] HPV9 2015-05-22 00:00:00 Completed [facility] Meningococcal Polysaccharide (groups A, C, Y and W-135) conjugate vaccine (MCV4P) 2015-05-22 00:00:00 Completed [facility] DTAP 2007-05-08 00:00:00 Completed [facility] HEPATITIS A 2007-05-08 00:00:00 Completed [facility] Polio (IPV/OPV) 2007-05-08 00:00:00 Completed [facility] Proquad (MMR/VARICELLA) 2007-05-08 00:00:00 Completed [facility] DTAP 2007-05-08 00:00:00 Completed [facility] HEPATITIS A 2007-05-08 00:00:00 Completed [facility] Polio (IPV/OPV) 2007-05-08 00:00:00 Completed [facility] Proquad (MMR/VARICELLA) 2007-05-08 00:00:00 Completed [facility] DTAP 2007-05-08 00:00:00 Completed [facility] HEPATITIS A 2007-05-08 00:00:00 Completed [facility] Polio (IPV/OPV) 2007-05-08 00:00:00 Completed [facility] Proquad (MMR/VARICELLA) 2007-05-08 00:00:00 Completed [facility] DTAP 2007-05-08 00:00:00 Completed [facility] HEPATITIS A 2007-05-08 00:00:00 Completed [facility] Polio (IPV/OPV) 2007-05-08 00:00:00 Completed [facility] Proquad (MMR/VARICELLA) 2007-05-08 00:00:00 Completed [facility] DTAP 2007-05-08 00:00:00 Completed [facility] HEPATITIS A 2007-05-08 00:00:00 Completed [facility] Polio (IPV/OPV) 2007-05-08 00:00:00 Completed [facility] Proquad (MMR/VARICELLA) 2007-05-08 00:00:00 Completed [facility] DTAP 2007-05-08 00:00:00 Completed [facility] HEPATITIS A 2007-05-08 00:00:00 Completed [facility] Polio (IPV/OPV) 2007-05-08 00:00:00 Completed [facility] Proquad (MMR/VARICELLA) 2007-05-08 00:00:00 Completed [facility] DTAP 2007-05-08 00:00:00 Completed [facility] HEPATITIS A 2007-05-08 00:00:00 Completed [facility] Polio (IPV/OPV) 2007-05-08 00:00:00 Completed [facility] Proquad (MMR/VARICELLA) 2007-05-08 00:00:00 Completed [facility] DTAP 2007-05-08 00:00:00 Completed [facility] HEPATITIS A 2007-05-08 00:00:00 Completed [facility] Polio (IPV/OPV) 2007-05-08 00:00:00 Completed [facility] Proquad (MMR/VARICELLA) 2007-05-08 00:00:00 Completed [facility] DTAP 2007-05-08 00:00:00 Completed [facility] HEPATITIS A 2007-05-08 00:00:00 Completed [facility] Polio (IPV/OPV) 2007-05-08 00:00:00 Completed [facility] Proquad (MMR/VARICELLA) 2007-05-08 00:00:00 Completed [facility] DTAP 2007-05-08 00:00:00 Completed [facility] HEPATITIS A 2007-05-08 00:00:00 Completed [facility] Polio (IPV/OPV) 2007-05-08 00:00:00 Completed [facility] Proquad (MMR/VARICELLA) 2007-05-08 00:00:00 Completed [facility] DTAP 2006-02-09 00:00:00 Completed [facility] HEPATITIS A 2006-02-09 00:00:00 Completed [facility] Pneumococcal 13 Conjugate, PCV13 (Prevnar 13) 2006-02-09 00:00:00 Completed [facility] DTAP 2006-02-09 00:00:00 Completed [facility] HEPATITIS A 2006-02-09 00:00:00 Completed [facility] Pneumococcal 13 Conjugate, PCV13 (Prevnar 13) 2006-02-09 00:00:00 Completed [facility] DTAP 2006-02-09 00:00:00 Completed [facility] HEPATITIS A 2006-02-09 00:00:00 Completed [facility] Pneumococcal 13 Conjugate, PCV13 (Prevnar 13) 2006-02-09 00:00:00 Completed [facility] DTAP 2006-02-09 00:00:00 Completed [facility] HEPATITIS A 2006-02-09 00:00:00 Completed [facility] Pneumococcal 13 Conjugate, PCV13 (Prevnar 13) 2006-02-09 00:00:00 Completed [facility] DTAP 2006-02-09 00:00:00 Completed [facility] HEPATITIS A 2006-02-09 00:00:00 Completed [facility] Pneumococcal 13 Conjugate, PCV13 (Prevnar 13) 2006-02-09 00:00:00 Completed [facility] DTAP 2006-02-09 00:00:00 Completed [facility] HEPATITIS A 2006-02-09 00:00:00 Completed [facility] Pneumococcal 13 Conjugate, PCV13 (Prevnar 13) 2006-02-09 00:00:00 Completed [facility] DTAP 2006-02-09 00:00:00 Completed [facility] HEPATITIS A 2006-02-09 00:00:00 Completed [facility] Pneumococcal 13 Conjugate, PCV13 (Prevnar 13) 2006-02-09 00:00:00 Completed [facility] DTAP 2006-02-09 00:00:00 Completed [facility] HEPATITIS A 2006-02-09 00:00:00 Completed [facility] Pneumococcal 13 Conjugate, PCV13 (Prevnar 13) 2006-02-09 00:00:00 Completed [facility] DTAP 2006-02-09 00:00:00 Completed [facility] HEPATITIS A 2006-02-09 00:00:00 Completed [facility] Pneumococcal 13 Conjugate, PCV13 (Prevnar 13) 2006-02-09 00:00:00 Completed [facility] DTAP 2006-02-09 00:00:00 Completed [facility] HEPATITIS A 2006-02-09 00:00:00 Completed [facility] Pneumococcal 13 Conjugate, PCV13 (Prevnar 13) 2006-02-09 00:00:00 Completed [facility] DTAP 2005-03-14 00:00:00 Completed [facility] Hep B, Adol or Pedi Dosage 2005-03-14 00:00:00 Completed [facility] DTAP 2005-03-14 00:00:00 Completed [facility] Hep B, Adol or Pedi Dosage 2005-03-14 00:00:00 Completed [facility] DTAP 2005-03-14 00:00:00 Completed [facility] Hep B, Adol or Pedi Dosage 2005-03-14 00:00:00 Completed [facility] DTAP 2005-03-14 00:00:00 Completed [facility] Hep B, Adol or Pedi Dosage 2005-03-14 00:00:00 Completed [facility] DTAP 2005-03-14 00:00:00 Completed [facility] Hep B, Adol or Pedi Dosage 2005-03-14 00:00:00 Completed [facility] DTAP 2005-03-14 00:00:00 Completed [facility] Hep B, Adol or Pedi Dosage 2005-03-14 00:00:00 Completed [facility] DTAP 2005-03-14 00:00:00 Completed [facility] Hep B, Adol or Pedi Dosage 2005-03-14 00:00:00 Completed [facility] DTAP 2005-03-14 00:00:00 Completed [facility] Hep B, Adol or Pedi Dosage 2005-03-14 00:00:00 Completed [facility] DTAP 2005-03-14 00:00:00 Completed [facility] Hep B, Adol or Pedi Dosage 2005-03-14 00:00:00 Completed [facility] DTAP 2005-03-14 00:00:00 Completed [facility] Hep B, Adol or Pedi Dosage 2005-03-14 00:00:00 Completed [facility] DTAP 2004-08-04 00:00:00 Completed [facility] HIB 3 Dose Schedule 2004-08-04 00:00:00 Completed [facility] Polio (IPV/OPV) 2004-08-04 00:00:00 Completed [facility] DTAP 2004-08-04 00:00:00 Completed [facility] HIB 3 Dose Schedule 2004-08-04 00:00:00 Completed [facility] Polio (IPV/OPV) 2004-08-04 00:00:00 Completed [facility] DTAP 2004-08-04 00:00:00 Completed [facility] HIB 3 Dose Schedule 2004-08-04 00:00:00 Completed [facility] Polio (IPV/OPV) 2004-08-04 00:00:00 Completed [facility] DTAP 2004-08-04 00:00:00 Completed [facility] HIB 3 Dose Schedule 2004-08-04 00:00:00 Completed [facility] Polio (IPV/OPV) 2004-08-04 00:00:00 Completed [facility] DTAP 2004-08-04 00:00:00 Completed [facility] HIB 3 Dose Schedule 2004-08-04 00:00:00 Completed [facility] Polio (IPV/OPV) 2004-08-04 00:00:00 Completed [facility] DTAP 2004-08-04 00:00:00 Completed [facility] HIB 3 Dose Schedule 2004-08-04 00:00:00 Completed [facility] Polio (IPV/OPV) 2004-08-04 00:00:00 Completed [facility] DTAP 2004-08-04 00:00:00 Completed [facility] HIB 3 Dose Schedule 2004-08-04 00:00:00 Completed [facility] Polio (IPV/OPV) 2004-08-04 00:00:00 Completed [facility] DTAP 2004-08-04 00:00:00 Completed [facility] HIB 3 Dose Schedule 2004-08-04 00:00:00 Completed [facility] Polio (IPV/OPV) 2004-08-04 00:00:00 Completed [facility] DTAP 2004-08-04 00:00:00 Completed [facility] HIB 3 Dose Schedule 2004-08-04 00:00:00 Completed [facility] Polio (IPV/OPV) 2004-08-04 00:00:00 Completed [facility] DTAP 2004-08-04 00:00:00 Completed [facility] HIB 3 Dose Schedule 2004-08-04 00:00:00 Completed [facility] Polio (IPV/OPV) 2004-08-04 00:00:00 Completed [facility] DTAP 2003-11-20 00:00:00 Completed [facility] HIB 3 Dose Schedule 2003-11-20 00:00:00 Completed [facility] Hep B, Adol or Pedi Dosage 2003-11-20 00:00:00 Completed [facility] MMR 2003-11-20 00:00:00 Completed [facility] Polio (IPV/OPV) 2003-11-20 00:00:00 Completed [facility] Varicella (varivax)(chicken pox) 2003-11-20 00:00:00 Completed [facility] DTAP 2003-11-20 00:00:00 Completed [facility] HIB 3 Dose Schedule 2003-11-20 00:00:00 Completed [facility] Hep B, Adol or Pedi Dosage 2003-11-20 00:00:00 Completed [facility] MMR 2003-11-20 00:00:00 Completed [facility] Polio (IPV/OPV) 2003-11-20 00:00:00 Completed [facility] Varicella (varivax)(chicken pox) 2003-11-20 00:00:00 Completed [facility] DTAP 2003-11-20 00:00:00 Completed [facility] HIB 3 Dose Schedule 2003-11-20 00:00:00 Completed [facility] Hep B, Adol or Pedi Dosage 2003-11-20 00:00:00 Completed [facility] MMR 2003-11-20 00:00:00 Completed [facility] Polio (IPV/OPV) 2003-11-20 00:00:00 Completed [facility] Varicella (varivax)(chicken pox) 2003-11-20 00:00:00 Completed [facility] DTAP 2003-11-20 00:00:00 Completed [facility] HIB 3 Dose Schedule 2003-11-20 00:00:00 Completed [facility] Hep B, Adol or Pedi Dosage 2003-11-20 00:00:00 Completed [facility] MMR 2003-11-20 00:00:00 Completed [facility] Polio (IPV/OPV) 2003-11-20 00:00:00 Completed [facility] Varicella (varivax)(chicken pox) 2003-11-20 00:00:00 Completed [facility] DTAP 2003-11-20 00:00:00 Completed [facility] HIB 3 Dose Schedule 2003-11-20 00:00:00 Completed [facility] Hep B, Adol or Pedi Dosage 2003-11-20 00:00:00 Completed [facility] MMR 2003-11-20 00:00:00 Completed [facility] Polio (IPV/OPV) 2003-11-20 00:00:00 Completed [facility] Varicella (varivax)(chicken pox) 2003-11-20 00:00:00 Completed [facility] DTAP 2003-11-20 00:00:00 Completed [facility] HIB 3 Dose Schedule 2003-11-20 00:00:00 Completed [facility] Hep B, Adol or Pedi Dosage 2003-11-20 00:00:00 Completed [facility] MMR 2003-11-20 00:00:00 Completed [facility] Polio (IPV/OPV) 2003-11-20 00:00:00 Completed [facility] Varicella (varivax)(chicken pox) 2003-11-20 00:00:00 Completed [facility] DTAP 2003-11-20 00:00:00 Completed [facility] HIB 3 Dose Schedule 2003-11-20 00:00:00 Completed [facility] Hep B, Adol or Pedi Dosage 2003-11-20 00:00:00 Completed [facility] MMR 2003-11-20 00:00:00 Completed [facility] Polio (IPV/OPV) 2003-11-20 00:00:00 Completed [facility] Varicella (varivax)(chicken pox) 2003-11-20 00:00:00 Completed [facility] DTAP 2003-11-20 00:00:00 Completed [facility] HIB 3 Dose Schedule 2003-11-20 00:00:00 Completed [facility] Hep B, Adol or Pedi Dosage 2003-11-20 00:00:00 Completed [facility] MMR 2003-11-20 00:00:00 Completed [facility] Polio (IPV/OPV) 2003-11-20 00:00:00 Completed [facility] Varicella (varivax)(chicken pox) 2003-11-20 00:00:00 Completed [facility] DTAP 2003-11-20 00:00:00 Completed [facility] HIB 3 Dose Schedule 2003-11-20 00:00:00 Completed [facility] Hep B, Adol or Pedi Dosage 2003-11-20 00:00:00 Completed [facility] MMR 2003-11-20 00:00:00 Completed [facility] Polio (IPV/OPV) 2003-11-20 00:00:00 Completed [facility] Varicella (varivax)(chicken pox) 2003-11-20 00:00:00 Completed [facility] DTAP 2003-11-20 00:00:00 Completed [facility] HIB 3 Dose Schedule 2003-11-20 00:00:00 Completed [facility] Hep B, Adol or Pedi Dosage 2003-11-20 00:00:00 Completed [facility] MMR 2003-11-20 00:00:00 Completed [facility] Polio (IPV/OPV) 2003-11-20 00:00:00 Completed [facility] Varicella (varivax)(chicken pox) 2003-11-20 00:00:00 Completed [facility] Hep B, Adol or Pedi Dosage 2003-02-25 00:00:00 Completed [facility] Polio (IPV/OPV) 2003-02-25 00:00:00 Completed [facility] Hep B, Adol or Pedi Dosage 2003-02-25 00:00:00 Completed [facility] Polio (IPV/OPV) 2003-02-25 00:00:00 Completed [facility] Hep B, Adol or Pedi Dosage 2003-02-25 00:00:00 Completed [facility] Polio (IPV/OPV) 2003-02-25 00:00:00 Completed [facility] Hep B, Adol or Pedi Dosage 2003-02-25 00:00:00 Completed [facility] Polio (IPV/OPV) 2003-02-25 00:00:00 Completed [facility] Hep B, Adol or Pedi Dosage 2003-02-25 00:00:00 Completed [facility] Polio (IPV/OPV) 2003-02-25 00:00:00 Completed [facility] Hep B, Adol or Pedi Dosage 2003-02-25 00:00:00 Completed [facility] Polio (IPV/OPV) 2003-02-25 00:00:00 Completed [facility] Hep B, Adol or Pedi Dosage 2003-02-25 00:00:00 Completed [facility] Polio (IPV/OPV) 2003-02-25 00:00:00 Completed [facility] Hep B, Adol or Pedi Dosage 2003-02-25 00:00:00 Completed [facility] Polio (IPV/OPV) 2003-02-25 00:00:00 Completed [facility] Hep B, Adol or Pedi Dosage 2003-02-25 00:00:00 Completed [facility] Polio (IPV/OPV) 2003-02-25 00:00:00 Completed [facility] Hep B, Adol or Pedi Dosage 2003-02-25 00:00:00 Completed [facility] Polio (IPV/OPV) 2003-02-25 00:00:00 Completed [facility] Hep B, Adol or Pedi Dosage 2002 00:00:00 Completed [facility] Hep B, Adol or Pedi Dosage 2002 00:00:00 Completed [facility] Hep B, Adol or Pedi Dosage 2002 00:00:00 Completed [facility] Hep B, Adol or Pedi Dosage 2002 00:00:00 Completed [facility] Hep B, Adol or Pedi Dosage 2002 00:00:00 Completed [facility] Hep B, Adol or Pedi Dosage 2002 00:00:00 Completed [facility] Hep B, Adol or Pedi Dosage 2002 00:00:00 Completed [facility] Hep B, Adol or Pedi Dosage 2002 00:00:00 Completed [facility] Hep B, Adol or Pedi Dosage 2002 00:00:00 Completed [facility] Hep B, Adol or Pedi Dosage 2002 00:00:00 Completed [facility] TDAP (ADACEL) VACCINE Unknown Completed [facility] HPV9 Unknown Completed [facility] Meningococcal Polysaccharide (groups A, C, Y and W-135) conjugate vaccine (MCV4P) Unknown Completed [facility] HPV9 Unknown Completed [facility] HPV9 Unknown Completed [facility] DTAP Unknown Completed [facility] DTAP Unknown Completed [facility] DTAP Unknown Completed [facility] DTAP Unknown Completed [facility] DTAP Unknown Completed [facility] HIB 3 Dose Schedule Unknown Completed [facility] HIB 3 Dose Schedule Unknown Completed [facility] HEPATITIS A Unknown [facility] HEPATITIS A Unknown Completed [facility] Hep B, Adol or Pedi Dosage Unknown Completed [facility] Hep B, Adol or Pedi Dosage Unknown Completed [facility] Hep B, Adol or Pedi Dosage Unknown Completed [facility] Hep B, Adol or Pedi Dosage Unknown Completed [facility] HPV Unknown Completed [facility] HPV Unknown Completed [facility] HPV Unknown Completed [facility] MMR Unknown Completed [facility] Pneumococcal 13 Conjugate, PCV13 (Prevnar 13) Unknown Completed [facility] Polio (IPV/OPV) Unknown Completed [facility] Polio (IPV/OPV) Unknown Completed [facility] Polio (IPV/OPV) Unknown Completed [facility] Polio (IPV/OPV) Unknown Completed [facility] Proquad (MMR/VARICELLA) Unknown Completed [facility] Varicella (varivax)(chicken pox) Unknown Completed [facility] TDAP (ADACEL) VACCINE Unknown Completed [facility] HPV9 Unknown Completed [facility] Meningococcal Polysaccharide (groups A, C, Y and W-135) conjugate vaccine (MCV4P) Unknown Completed [facility] HPV9 Unknown Completed [facility] HPV9 Unknown Completed [facility] DTAP Unknown Completed [facility] DTAP Unknown Completed [facility] DTAP Unknown Completed [facility] DTAP Unknown Completed [facility] DTAP Unknown Completed [facility] HIB 3 Dose Schedule Unknown Completed [facility] HIB 3 Dose Schedule Unknown Completed [facility] HEPATITIS A Unknown Completed [facility] HEPATITIS A Unknown [facility] Hep B, Adol or Pedi Dosage Unknown Completed [facility] Hep B, Adol or Pedi Dosage Unknown Completed [facility] Hep B, Adol or Pedi Dosage Unknown Completed [facility] Hep B, Adol or Pedi Dosage Unknown Completed [facility] HPV Unknown Completed [facility] HPV Unknown Completed [facility] HPV Unknown Completed [facility] MMR Unknown Completed [facility] Pneumococcal 13 Conjugate, PCV13 (Prevnar 13) Unknown Completed [facility] Polio (IPV/OPV) Unknown Completed [facility] Polio (IPV/OPV) Unknown Completed [facility] Polio (IPV/OPV) Unknown Completed [facility] Polio (IPV/OPV) Unknown Completed [facility] Proquad (MMR/VARICELLA) Unknown Completed [facility] Varicella (varivax)(chicken pox) Unknown Completed [facility] Vital Signs Vital Name Observation Time Observation Value Comments S ource Systolic blood pressure 2023-05-23 19:12:00 122 mm[Hg] [facility] Diastolic blood pressure 2023-05-23 19:12:00 98 mm[Hg] [facility] Heart rate 2023-05-23 19:12:00 68 /min [facility] Body temperature 2023-05-23 19:12:00 36.61 Senait [facility] Respiratory rate 2023-05-23 19:12:00 18 /min [facility] Body height 2023-05-23 19:12:00 162.6 cm [facility] Body weight 2023-05-23 19:12:00 95.255 kg [facility] BMI 2023-05-23 19:12:00 36.05 kg/m2 [facility] Oxygen saturation in Arterial blood by Pulse oximetry 2023-05-23 19:12:00 99 /min [facility] Systolic blood pressure 2023-02-24 00:41:00 112 mm[Hg] [facility] Diastolic blood pressure 2023-02-24 00:41:00 74 mm[Hg] [facility] Heart rate 2023-02-24 00:41:00 84 /min [facility] Body temperature 2023-02-24 00:41:00 36.94 Senait [facility] Respiratory rate 2023-02-24 00:41:00 20 /min [facility] Oxygen saturation in Arterial blood by Pulse oximetry 2023-02-24 00:41:00 98 /min [facility] Body height 2023-02-23 22:43:00 162.6 cm [facility] Body weight 2023-02-23 22:43:00 95.255 kg [facility] BMI 2023-02-23 22:43:00 36.05 kg/m2 [facility] Systolic blood pressure 2021-10-19 04:27:00 121 mm[Hg] [facility] Diastolic blood pressure 2021-10-19 04:27:00 79 mm[Hg] [facility] Heart rate 2021-10-19 04:27:00 107 /min [facility] Body temperature 2021-10-19 04:27:00 38.72 Senait [facility] Respiratory rate 2021-10-19 04:27:00 18 /min [facility] Body height 2021-10-19 04:27:00 160 cm [facility] Body weight 2021-10-19 04:27:00 90.719 kg [facility] BMI 2021-10-19 04:27:00 35.43 kg/m2 [facility] Body mass index (BMI) [Percentile] Per age and sex 2021-10-19 04:27:00 97.54 % [facility] Oxygen saturation in Arterial blood by Pulse oximetry 2021-10-19 04:27:00 99 /min [facility] Systolic blood pressure 2021-05-22 10:55:00 118 mm[Hg] [facility] Diastolic blood pressure 2021-05-22 10:55:00 70 mm[Hg] [facility] Heart rate 2021-05-22 10:55:00 105 /min [facility] Body temperature 2021-05-22 10:55:00 38.17 [facility] Respiratory rate 2021-05-22 10:55:00 18 /min [facility] Body height 2021-05-22 10:55:00 162.6 cm [facility] Body weight 2021-05-22 10:55:00 97.523 kg [facility] BMI 2021-05-22 10:55:00 36.90 kg/m2 [facility] Oxygen saturation in Arterial blood by Pulse oximetry 2021-05-22 10:55:00 97 /min [facility] Systolic blood pressure 2021-03-12 12:22:00 102 mm[Hg] [facility] Diastolic blood pressure 2021-03-12 12:22:00 57 mm[Hg] [facility] Heart rate 2021-03-12 12:22:00 69 /min [facility] Body temperature 2021-03-12 12:22:00 37.06 [facility] Respiratory rate 2021-03-12 12:22:00 18 /min [facility] Oxygen saturation in Arterial blood by Pulse oximetry 2021-03-12 12:22:00 97 /min [facility] Body height 2021-03-11 20:55:00 165.1 cm [facility] Body weight 2021-03-11 20:55:00 105.461 kg [facility] BMI 2021-03-11 20:55:00 38.69 kg/m2 [facility] Systolic blood pressure 2021-03-06 05:21:03 135 mm[Hg] [facility] Diastolic blood pressure 2021-03-06 05:21:03 82 mm[Hg] [facility] Heart rate 2021-03-06 05:21:03 96 /min [facility] Body temperature 2021-03-06 05:21:03 37.22 [facility] Respiratory rate 2021-03-06 05:21:03 20 /min [facility] Oxygen saturation in Arterial blood by Pulse oximetry 2021-03-06 05:21:03 98 /min [facility] Body height 2021-03-06 03:22:00 165.1 cm [facility] Body weight 2021-03-06 03:22:00 90.719 kg [facility] BMI 2021-03-06 03:22:00 33.28 kg/m2 [facility] Heart rate 2021-02-25 02:31:00 108 /min [facility] Systolic blood pressure 2021-02-25 01:21:00 123 mm[Hg] [facility] Diastolic blood pressure 2021-02-25 01:21:00 82 mm[Hg] [facility] Body temperature 2021-02-25 01:21:00 37.61 Senait [facility] Respiratory rate 2021-02-25 01:21:00 22 /min [facility] Body weight 2021-02-25 01:21:00 90.719 kg [facility] Oxygen saturation in Arterial blood by Pulse oximetry 2021-02-25 01:21:00 99 /min [facility] Systolic blood pressure 2019-10-22 15:39:00 113 mm[Hg] [facility] Diastolic blood pressure 2019-10-22 15:39:00 74 mm[Hg] [facility] Heart rate 2019-10-22 15:39:00 82 /min [facility] Body temperature 2019-10-22 15:39:00 36.83 Senait [facility] Respiratory rate 2019-10-22 15:39:00 16 /min [facility] Body height 2019-10-22 15:39:00 160 cm [facility] Body weight 2019-10-22 15:39:00 103.023 kg [facility] BMI 2019-10-22 15:39:00 40.23 kg/m2 [facility] Procedures Procedure Date / Time Performed Performing Clinicia n Source POCT TEST 2023-05-23 22:15:00 Tamiko Reynaga [facility] LIPASE 2023-05-23 20:07:00 Jennifer Reynaga [facility] COMP. METABOLIC PANEL ([id number]) 2023-05-23 20:07:00 Jennifer Reynaga [facility] CBC WITH DIFF 2023-05-23 20:07:00 Jennifer Reynaga [facility] URINALYSIS 2023-05-23 20:07:00 Jennifer Reynaga [facility] ASSIGNMENT OF BENEFITS 2023-05-23 19:45:58 Docto r Unassigned, [place] [facility] ASSIGNMENT OF BENEFITS 2023-02-23 23:29:30 Docto r Unassigned, [place] [facility] RAPID STREP SCREEN FOR GROUP A 2023-02-23 23:18:00 Thelma Garcia [facility] RAPID INFLUENZA A/B 2023-02-23 23:18:00 Jatinder Garcia [facility] COVID-19 (ID NOW RAPID TESTING) 2023-02-23 23:18:00 Thelma Garcia [facility] CONSENT/REFUSAL FOR DIAGNOSIS AND TREATMENT 2023-02-23 22:27:31 Doctor Unassigned, [place] [facility] RAPID INFLUENZA A/B 2021-10-19 04:38:00 Micha Vanessa [facility] NOTICE OF PRIVACY PRACTICES 2021-10-19 04:25:24 Doctor Unassigned, [place] [facility] CONSENT/REFUSAL FOR DIAGNOSIS AND TREATMENT 2021-10-19 04:25:07 Doctor Unassigned, [place] [facility] URINALYSIS 2021-05-22 11:31:00 Suzette Michele [facility] POCT TEST 2021-05-22 11:31:00 Suzette Michele [facility] COVID-19 (ID NOW RAPID TESTING) 2021-05-22 11:17:00 Suzette Michele [facility] CONSENT/REFUSAL FOR DIAGNOSIS AND TREATMENT 2021-05-22 10:19:37 Doctor Unassigned, [place] [facility] MAGNESIUM 2021-03-12 09:44:00 Anatoly Valdovinos [facility] BASIC METABOLIC PANEL (NA, K, CL, CO2, GLUCOSE, BUN, CREATININE, CA) 2021-03-12 09:44:00 Anatoly Valdovinos [facility] CBC WITH DIFF 2021-03-12 09:44:00 Anatoly Valdovinos [facility] COVID-19 (ID NOW RAPID TESTING) 2021-03-11 17:06:00 Solange Ford [facility] BLOOD CULTURE SCREEN 2021-03-11 17:05:00 Ashok Ford [facility] URINE CULTURE 2021-03-11 17:05:00 Solange Ford [facility] LACTIC ACID WHOLE BLOOD 2021-03-11 17:04:00 Solange Ford [facility] BLOOD CULTURE SCREEN 2021-03-11 16:35:00 Ashok Ford [facility] CT ABDOMEN PELVIS W CONTRAST 2021-03-11 15:56:47 Solange Ford [facility] LIPASE 2021-03-11 15:07:00 Solange Ford [facility] COMP. METABOLIC PANEL (88917) 2021-03-11 15:07:00 Solange Ford [facility] CBC WITH DIFF 2021-03-11 15:07:00 Solange Ford [facility] URINALYSIS 2021-03-11 15:07:00 Solange Ford [facility] POCT TEST 2021-03-11 15:06:00 Tatiana Ford [facility] NOTICE OF PRIVACY PRACTICES 2021-03-11 14:51:22 Doctor Unassigned, [place] [facility] CONSENT/REFUSAL FOR DIAGNOSIS AND TREATMENT 2021-03-11 14:50:52 Doctor Unassigned, [place] [facility] XR CHEST 2 VW 2021-03-06 04:04:44 Jennifer Reynaga [facility] NOTICE OF PRIVACY PRACTICES 2021-03-06 03:15:08 Doctor Unassigned, [place] [facility] CONSENT/REFUSAL FOR DIAGNOSIS AND TREATMENT 2021-03-06 03:14:52 Doctor Unassigned, [place] [facility] COVID-19 (ID NOW RAPID TESTING) 2021-02-25 01:56:00 Micha Vanessa [facility] NOTICE OF PRIVACY PRACTICES 2021-02-25 01:15:24 Doctor Unassigned, [place] [facility] CONSENT/REFUSAL FOR DIAGNOSIS AND TREATMENT 2021-02-25 01:10:32 Doctor Unassigned, [place] [facility] Encounters Start Date/Time End Date/Time Encounter Type Admission Type Attending [facility] Facility Care Department Encounter ID Source 2021-08-08 22:53:54 Emergency [facility] [id number] [facility] 2021-08-08 22:05:35 Emergency [facility] [id number] [facility] 2021-08-08 20:09:33 Emergency [facility] [id number] [facility] 2023-05-23 14:13:00 2023-05-23 18:16:00 Emergency X JENNIFER REYNAGA [facility] ERT [id number] [facility] 2023-05-23 14:13:00 2023-05-23 18:16:00 Emergency Jennifer Reynaga [facility] 1.2840.114 350.1.13.10 4.2.7.2.686 [id number] [facility] 2023-02-23 17:44:00 2023-02-23 19:46:00 Emergency X [facility] ERT [id number] [facility] 2023-02-23 17:44:00 2023-02-23 19:46:00 Emergency Thelma Garcia [facility] 1.2840.114 350.1.13.10 4.2.7.2.686 [id number] [facility] 2021-10-20 00:00:00 2021-10-20 00:00:00 Patient Secure g Ellabradendianadennise Gissell [facility] SOUND [facility] 1.2.840.114 350.1.13.10 4.2.7.2.686 [id number] [facility] 2021-10-19 00:00:00 2021-10-19 00:00:00 Patient Secure Msg Doctor Unassigned, [place] [facility] 1.2840.114 350.1.13.10 4.2.7.2.686 [id number] [facility] 2021-10-19 00:00:00 2021-10-19 00:00:00 Patient Secure Msg Rachel Hanley [facility] 1.2840.114 350.1.13.10 4.2.7.2.686 [id number] [facility] 2021-10-18 22:40:00 2021-10-18 23:11:00 Emergency X MICHA VANESSA [facility] ERT [id number] [facility] 2021-10-18 22:40:00 2021-10-18 23:11:00 Emergency Micha Vanessa R [facility] 1.2.840.114 350.1.13.10 4.2.7.2.686 [id number] [id number] [facility] 2021-05-22 05:58:00 2021-05-22 07:44:00 Emergency Suzette Michele [facility] 1.2.840.114 350.1.13.10 4.2.7.2.686 [id number] [facility] 2021-05-22 05:58:00 2021-05-22 07:44:00 Emergency X SUZETTE MICHELE [facility] ERT [id number] [facility] 2021-05-22 00:00:00 2021-05-22 00:00:00 Orders Only Doctor Unassigned, [place] [facility] 1.2.840.114 350.1.13.10 4.2.7.2.686 [id number] [facility] 2021-03-11 09:58:00 2021-03-12 13:25:00 Emergency Solange Ford Yaman [facility] 1.2.840.114 350.1.13.10 4.2.7.2.686 [id number] [facility] 2021-03-05 22:26:00 2021-03-06 00:33:00 Emergency Jennifer Reynaga [facility] 1.2.840.114 350.1.13.10 4.2.7.2.686 [id number] [facility] 2021-02-24 20:25:00 2021-02-24 21:57:00 Emergency Micha Vanessa [facility] 1.2.840.114 350.1.13.10 4.2.7.2.686 [id number] [facility] 2019-10-22 09:07:40 2019-10-22 09:41:44 Nurse Visit Visit, Darryl-Rmchp Nurse Rachel Hanley [facility] SOUND [facility] 1.2840.114 350.1.13.10 4.2.7.2.686 [id number] [facility] Results Test Description Test Time Test Comments Results Result Co mments Source [facility] (ID NOW RAPID TESTING)2021-05-22 12:21:27* Test Item Value Reference Range Interpretation Comme nts SARS-CoV-2 Rapid ID NOW (test code = 76967-7) Positive Not Detected A EVERARDO (test code = EVERARDO) ID NOW COVID-19 As say is an isothermal nucleic acid amplification test intended for the qualitative detection of nucleic acid from SARS-CoV-2 viral RNA in nasopharyngeal (HEARING AID REPAIR TECHNICIAN) specimens. It is used under Emergency Use [...] clinically indicated. Lab Interpretation (test code = 30168-3) Abnormal [facility]IS2021-08-14 12:05:50* Test Item Value Reference Range Interpretation Comme nts APPEARANCE (test code = 8438713917) Clear Clear COLOR (test code = 2849733356) Yellow Yellow PH (test code = 1867281317) 4.8-8.0 SP GRAVITY (test code = 7571801128) 1.003-1.030 GLU U QUAL (test code = 9596425507) Normal Normal BLOOD (test code = 2387211124) 1+ Negative A KETONES (test code = 3825261777) Negative Negative PROTEIN (test code = 2887-8) Negative Negative UROBILIN (test code = 4187684876) Normal Normal BILIRUBIN (test code = 5337655942) Negative Negative NITRITE (test code = 7784522088) Negative Negative LEUK EMILIANO (test code = 2809750744) Negative Negative RBC/HPF (test code = 5472167584) See_Comment [Automated [employer]] The system which generated this result transmitted reference range: 0 - 3 HPF. The reference range was not used to interpret this result as normal/abnormal. WBC/HPF (test code = 3410963550) See_Comment [Automated [employer]] The system which generated this result transmitted reference range: 0 - 5 HPF. The reference range was not used to interpret this result as normal/abnormal. BACTERIA (test code = 1851111956) Few Negative A SQ EPITH (test code = 8929526046) HPF TRANS EPI (test code = 2238231408) <1 See_Comment [[employer]] The system which generated this result transmitted reference range: <=1 HPF. The reference range was not used to interpret this result as normal/abnormal. Lab Interpretation (test code = 53857-4) Abnormal [facility] IDNB6680-63-41 11:31:00* Test Item Value Reference Range Interpretation Comme nts POCT PREG (test code = 1605) Negative On board controls acceptable with C Line (test code = 3574) Present POCT PREG LOT # (test code = 3575) [facility] [id number] POCT PREG TEST DATE ( test code = 3576) 10/08/2022 Lab Interpretation (test cod e = 76169-6) Normal [facility] CenterURINE HHDORZK7034-24-12 17:42:24* Test Item Value Reference Range Interpretation Comme nts URINE CULTURE (test code = 630-4) 10,000 - 100,000 CFU/mL mixed aerobic organisms - suggests endogenous microbial contamination [facility] CenterBasi Metabolic Panel (NA, K, CL, CO2, GLUCOSE, BUN, CREATININE, CA)2021-03-12 11:27:06* Test Item Value Reference Range Interpretation Comme nts NA (test code = 1328147691) 137 mmol/L 135-145 K (test code = 7113146859) 3.1 mmol/L 3.5-5.0 L CL (test code = 8172845747) 103 mmol/L 98-108 CO2 TOTAL (test code = 7656270687) 27 mmol/L 23-31 AGAP (test code = 8755715172) 2-16 BUN (test code = 3628335954) 9 mg/dL 7-23 GLUCOSE (test code = 2228619678) 82 mg/dL 70-110 CREATININE (test code = 3141067717) 0.53 mg/dL 0.50-1.04 CALCIUM (test code = 2818009241) 8.9 mg/dL 8.6-10.6 eGFR (test code = 4138741602) mL/min/1.73m2 EVERARDO (test code = EVERARDO) Association [...] imaging tests). Lab Interpretation (test code = 21513-8) Abnormal [facility] CenterMagnesium Ivnix2774-46-91 11:22:32* Test Item Value Reference Range Interpretation Comme nts MAGNESIUM (test code = 3685060918) 2.1 mg/dL 1.7-2.4 Lab Interpretation (test cod e = 67728-5) Normal [facility] with Uyuhjwjgcvfs8667-23-28 11:05:52* Test Item Value Reference Range Interpretation Comme nts WBC (test code = 6690-2) See_Comment [[employer]] The system which generated this result transmitted reference range: 4.50 - 13.50 10*3/?L. The reference range was not used to interpret this result as normal/abnormal. RBC (test code = 789-8) See_Comment [Automated [employer]] The system which generated this result transmitted [...] 34.4 g/dL 32.0-36.0 RDW-SD (test code = 20943-1) 37.9 fL 38.5-49.0 L RDW-CV (test code = 788-0) 12.3 % 11.5-14.0 PLT (test code = 777-3) See_Comment [Automated messa ge] The system which generated this result transmitted reference range: 135 - 361 10*3/?L. The reference range was not used to interpret this result as normal/abnormal. MPV (test code = 66218-0) 10.1 fL 9.4-13.3 NRBC/100 WBC (test code = 8150914676) See_Comment [Automated [employer] ssage] The system which generated this result transmitted reference range: 0.0 - 10.0 /100 WBCs. The reference range was not used to interpret this result as normal/abnormal. NRBC x10^3 (test code = 4128016639) <0.01 See_Comment [Automated messa ge] The system which generated this result transmitted reference range: 10*3/?L. The reference range was not used to interpret this result as normal/abnormal. GRAN MAT (NEUT) % (test code = 770-8) 59.8 % IMM GRAN % (test code = 6089864304) 0.80 % LYMPH % (test code = 736-9) 26.3 % MONO % (test code = 5905-5) 12.3 % EOS % (test code = 713-8) 0.5 % BASO % (test code = 706-2) 0.3 % GRAN MAT x10^3(ANC) (test code = 5310724454) 3.91 10*3/uL 1.50-10.30 IMM GRAN x10^3 (test code = 1815819786) 0.05 10*3/uL 0.00-0.06 LYMPH x10^3 (test code = 731-0) 1.72 10*3/uL 0.70-7.40 MONO x10^3 (test code = 742-7) 0.80 10*3/uL 0.00-0.50 H EOS x10^3 (test code = 711-2) 0.03 10*3/uL 0.00-0.40 BASO x10^3 (test code = 704-7) <0.03 0.00-0.10 Lab Interpretation (test code = 53847-8) Abnormal [facility]OVID[facility] (ID NOW RAPID TESTING)2021-03-11 18:10:27* Test Item Value Reference Range Interpretation Comme nts SARS-CoV-2 Rapid ID NOW (test code = 63842-1) Not Detected Not Detected EVERARDO (test code = EVERARDO) ID NOW COVID-19 As say is an isothermal nucleic acid amplification test intended for the qualitative detection of nucleic acid from SARS-CoV-2 viral RNA in nasopharyngeal (HEARING AID REPAIR TECHNICIAN) specimens. It is used under Emergency Use [...] clinically indicated. Lab Interpretation (test code = 02110-5) Normal [facility] CenterLactic Acid Whole Zdvwl4222-21-36 17:11:07* Test Item Value Reference Range Interpretation Comme nts LACTIC ACID (test code = 5323052108) 0.91 mmol/L 0.50-2.20 Lab Interpretation (test cod e = 77366-5) Normal [facility] CenterCT ABDOMEN PELVIS W ZIZNSRKP1437-76-07 16:28:25No acute abnormality identified. INDICATION: ?Abdominal abscess/infection [...] or abscess is noted.IMPRESSIONNo acute abnormality identified. [facility] Jeoihuysecyt0953-67-90 16:05:33* Test Item Value Reference Range Interpretation [...] 34.6 g/dL 32.0-36.0 RDW-SD (test code = 70045-8) 36.3 fL 38.5-49.0 L RDW-CV (test code = 788-0) 11.9 % 11.5-14.0 PLT (test code = 777-3) See_Comment H [Automated message] The system which generated this result transmitted reference range: 135 - 361 10*3/?L. The reference range was not used to interpret this result as normal/abnormal. MPV (test code = 80574-8) 9.6 fL 9.4-13.3 NRBC/100 WBC (test code = 1740928147) See_Comment [Automated message] The system which generated this result transmitted reference range: 0.0 - 10.0 /100 WBCs. The reference range was not used to interpret this result as normal/abnormal. NRBC x10^3 (test code = 0049144187) <0.01 See_Comment [Automated message] The system which generated this result transmitted reference range: 10*3/?L. The reference range was not used to interpret this result as normal/abnormal. GRAN MAT (NEUT) % (test code = 770-8) 86.3 % IMM GRAN % (test code = 3951308893) 0.90 % LYMPH % (test code = 736-9) 6.3 % MONO % (test code = 5905-5) 6.1 % EOS % (test code = 713-8) 0.1 % BASO % (test code = 706-2) 0.3 % GRAN MAT x10^3(ANC) (test code = 3949816473) 20.00 10*3/uL 1.50-10.30 H IMM GRAN x10^3 (test code = 8009000970) 0.21 10*3/uL 0.00-0.06 H LYMPH x10^3 (test code = 731-0) 1.45 10*3/uL 0.70-7.40 MONO x10^3 (test code = 742-7) 1.42 10*3/uL 0.00-0.50 H EOS x10^3 (test code = 711-2) <0.03 0.00-0.40 BASO x10^3 (test code = 704-7) 0.07 10*3/uL 0.00-0.10 Lab Interpretation (test code = 84077-1) Abnormal [facility] CenterUrinalysis2021-06-03 15:41:19* Test Item Value Reference Range Interpretation Comme nts APPEARANCE (test code = 6755325532) Hazy Clear A COLOR (test code = 8712308522) Yellow Yellow PH (test code = 2112162948) 4.8-8.0 SP GRAVITY (test code = 9481581906) 1.003-1.030 GLU U QUAL (test code = 0858008863) Normal Normal BLOOD (test code = 9363700897) 1+ Negative A KETONES (test code = 2341826604) Negative Negative PROTEIN (test code = 2887-8) Negative Negative UROBILIN (test code = 7602686868) Normal Normal BILIRUBIN (test code = 1248450569) Negative Negative NITRITE (test code = 5459097964) Negative Negative LEUK EMILIANO (test code = 2411043418) 500/uL Negative A RBC/HPF (test code = 4707014973) See_Comment H [Automated messa ge] The system which generated this result transmitted reference range: 0 - 3 HPF. The reference range was not used to interpret this result as normal/abnormal. WBC/HPF (test code = 0841848205) See_Comment H [Automated messa ge] The system which generated this result transmitted reference range: 0 - 5 HPF. The reference range was not used to interpret this result as normal/abnormal. BACTERIA (test code = 1252826267) Few Negative A MUCOUS (test code = 1372263786) Slight Negative LPF A SQ EPITH (test code = 6098759535) HPF Lab Interpretation (test code = 02586-6) Abnormal [facility] CenterComplete Metabolic Krdjf5644-73-50 15:37:26* Test Item Value Reference Range Interpretation Comme nts NA (test code = 9558689771) 137 mmol/L 135-145 K (test code = 8564638621) 3.9 mmol/L 3.5-5.0 CL (test code = 8659219189) 104 mmol/L 98-108 CO2 TOTAL (test code = 0338239258) 25 mmol/L 23-31 AGAP (test code = 9572514157) 2-16 BUN (test code = 8182157100) 15 mg/dL 7-23 GLUCOSE (test code = 3615393042) 106 mg/dL 70-110 CREATININE (test code = 4694592806) 0.54 mg/dL 0.50-1.04 TOTAL BILI (test code = 4858405141) 0.8 mg/dL 0.1-1.1 CALCIUM (test code = 4362189599) 9.4 mg/dL 8.6-10.6 T PROTEIN (test code = 1158602878) 7.9 g/dL 6.3-8.2 ALBUMIN (test code = 1484031655) 4.5 g/dL 3.5-5.0 ALK PHOS (test code = 3918668637) 87 U/L 34-122 ALTv (test code = 1742-6) 21 U/L 5-35 AST(SGOT) (test code = 3827015612) 21 U/L 13-40 eGFR (test code = 2583662586) mL/min/1.73m2 EVERARDO (test code = EVERARDO) Association [...] or urine or abnormalities in imaging tests). [facility] CenterLip[facility], Ynaex4263-71-28 15:36:45* Test Item Value Reference Range Interpretation Comme nts LIPASE (test code = 4947776522) 52 U/L 0-220 Lab Interpretation (test cod e = 12236-2) Normal [facility] CenterPOCT Uywl7051-59-71 15:06:00* Test Item Value Reference Range Interpretation Comme nts POCT PREG (test code = 1605) negative On board controls acceptable with C Line (test code = 3574) present POCT PREG LOT # (test code = 3575) [id number] POCT PREG TEST DATE ( test code = 3576) 09/07/2022 Lab Interpretation (test cod e = 87108-8) Normal [facility] CenterCOVID-19 (ID NOW RAPID TESTING)2021-02-25 02:15:05* Test Item Value Reference Range Interpretation Comme nts SARS-CoV-2 Rapid ID NOW (test code = 79556-4) Not Detected Not Detected EVERARDO (test code = EVERARDO) ID NOW COVID-19 As say is an isothermal nucleic acid amplification test intended for the qualitative detection of nucleic acid from SARS-CoV-2 viral RNA in nasopharyngeal (HEARING AID REPAIR TECHNICIAN) specimens. It is used under Emergency Use [...] clinically indicated. Lab Interpretation (test code = 27792-4) Normal [facility] Notes Date/Time Note Provider Source 2023-05-23 18:15:58 cHlksb9TYwg4C4JzNCjN QkgjNFi +iDBMfLmv4JjFGnfeg9+9zlYFtF 1lcahG7NWp9334-06-13M14:15: 58 Pt given printed and verbal discharge [...] with steady gait, in no apparent distress, 78383-8Ykzymnean department NbdiGE7400-71-87X88:16:37Em ergency department NoteTXT1.2.840.006405.1.13. 104.2.7.2.887160|[id number] AVAvailable for patient lxav40850-0NmvaIB361652976S trino Batista [address] Bl[place] [id number] UVZK1311-10-17D00:16:371.2. 840.556974.1.72.3.15|1.2.84 0.217306.1.13.104.2.7.2.727 [id number] Shira Batista RN [facility] 2023-05-23 14:11:47 NXJJWOlV237L3XwzskJP gLIQiFA V3PZdHknUjXGx29Is6FkzeoM2oQ AwEGm1OcTP5618-52-14Y42:11: 47 Patient to ED for vomiting x 3 days. Her abdomen feels like it is on fire. Every time she eats she vomits. She felt like this last time and she got admitted per patient. 60253-0Ahwzngtbp department Triage zifqQJ2059-92-05M85:12:28Em ergency department Triage noteTXT1.2.840.848092.1.13. 104.2.7.2.722367|[id number] AVAvailable for patient kgxf08630-7Yqwrvqfbu department WdmnVL414839657Jriuosz D Wierzbicki RN[address] BlvdGalvestonGal[place]on[place]7 [id number] UAUX5803-01-18H06:12:281.2. 840.617785.1.72.3.15|1.2.84 0.448761.1.13.104.2.7.2.727 [id number] Ced Womack RN [facility]"
[2024-01-17] MEDS ORDERED: CEFTRIAXONE 1000 MG/VIAL ONE (07:03)
[2024-01-17] MEDS ORDERED: ONDANSETRON 4 MG/2 ML VIAL ONE (07:03)
[2024-01-17] MEDS ORDERED: KETOROLAC 30 MG/ML INJ ONE (07:04)
[2024-01-17] MEDS ORDERED: ACETAMINOPHEN 500 MG TAB ONE (07:04)
[2024-01-17] MEDS ORDERED: LIDOCAINE 1% MPF 5 ML VIAL ONE (07:04)
[2024-01-17] MEDS ORDERED: NA CHLORIDE 0.9% 1,000 ML ONE (07:04)
[2024-01-17 07:19] LABS: Absolute Lymphocytes (CBC) 0.9 K/uL (0.7-4.9); Absolute Monocytes 0.9 K/uL (0.1-1.3); Absolute Neutrophil 8.1 K/uL (1.8-8.0); Basophils % 0.3 % (0-1.3); Eosinophils % 0.2 % (0-4.4); Hematocrit 38.9 % (36.0-45.0); Hemoglobin 13.4 g/dL (12.0-15.0); Lymphocytes % 8.8 % (15.3-44.8); MCH 30.4 pg (27.0-35.0); MCHC 34.4 g/dL (32.0-36.0); MCV 88.1 fL (80-100); MPV 7.9 fL (7.6-11.3); Monocytes % 9.1 % (3.3-12.3); Neutrophils % 81.6 % (41.7-73.7); Platelets 221 thou/uL (152-406); RBC Red Blood Cell Count 4.42 M/uL (3.86-4.86)
[2024-01-17 07:24] LABS: Sqamous Epithelial <5 /HPF (None Seen); Urine Bacteria None Seen /HPF (<20); Urine Bilirubin NEGATIVE (Negative); Urine Blood 1+ (Negative); Urine Clarity Clear (Clear); Urine Color Colorless (Yellow); Urine Culture Reflex Order NOT NEEDED; Urine Glucose NEGATIVE (Negative); Urine Ketones NEGATIVE (Negative); Urine Micro Reflex YN NO BILL MICROSCOPIC; Urine Mucus Slight /HPF (None Seen); Urine Nitrite NEGATIVE (Negative); Urine Protein NEGATIVE (Negative); Urine RBC <5 /HPF (None Seen); Urine Urobilinogen Normal (Normal); Urine WBC None Seen /HPF (<5); Urine pH 6.5 (5.0-7.0)
[2024-01-17 07:40] LABS: Albumin 3.5 g/dL (3.4-5.0); Albumin/Globulin Ratio 0.9 (1.1-1.8); Anion Gap 7.7 mEq/L (5.0-15.0); Bilirubin Total 0.3 mg/dL (0.2-1.0); Globulin 3.9 g/dL (2.3-3.5); Potassium 3.7 mEq/L (3.5-5.1); Protein, Total 7.4 g/dL (6.4-8.2)
[2024-01-17 07:43] LABS: SARS-CoV-2 Antigen CONTROL BLUE LINE VIS/BG OK; SARS-CoV-2 Antigen Rapid Res Negative (Negative)
--- NOTE | 2024-01-17 07:47 | EDPHYS ---
Physician Documentation [facility] Name: Latonia Tabares Age: 23 yrs Sex: Female : 2000 Arrival Date: 01/17/2024 Time: 06:06 Bed 19 Private MD: ED Physician Jono Elizabeth HPI: 01/16 06:23 This 23 yrs old Female presents to ER via Unassigned with complaints of sp4 Fever, Sore Throat. 23:27 23-year-old female presents with acute onset of sore throat starting 1 week ago . sp4 Patient states she is feeling unwell overall fever nausea and fatigue. Historical: - Allergies: 06:30 No Known Allergies; jb4 - PMHx: 06:30 None; jb4 - PSHx: 06:30 Right Ankle; jb4 - Immunization history:: Adult Immunizations up to date. - Infectious Disease History:: Denies. - Social history:: Smoking status: Patient/guardian denies using tobacco, but has a distant history of tobacco abuse. - Family history:: not pertinent. ROS: 23:27 Constitutional: Positive fever, positive nausea, positive fatigue, positive sore throat sp4 23:27 All other systems are negative, Exam: 23:27 Constitutional: This is a well developed, well nourished patient who is awake, alert, sp4 and in no acute distress. Head/Face: Normocephalic, atraumatic. Eyes: Pupils equal round and reactive to light, extra-ocular motions intact. Lids and lashes normal. Conjunctiva and sclera are not injected. Cornea within normal limits. Periorbital areas with no swelling, redness, or edema. ENT: Nares patent. No nasal discharge, no septal abnormalities noted. Tympanic membranes are normal and external auditory canals are clear. Oropharynx positive for redness diffusely and enlarged tonsils also positive. Acute streaky tonsillar exudates. Neck: Trachea midline, no thyromegaly or masses palpated, and no cervical lymphadenopathy. Supple, full range of motion without nuchal rigidity, or vertebral point tenderness. Chest/axilla: Normal chest wall appearance and motion. Nontender with no deformity. No lesions are appreciated. Cardiovascular: Regular rate and rhythm with a normal S1 and S2. No gallops, murmurs, or rubs. Normal PMI, no JVD. No pulse deficits. Respiratory: Lungs have equal breath sounds bilaterally, clear to auscultation and percussion. No rales, rhonchi or wheezes noted. No increased work of breathing, no retractions or nasal flaring. Abdomen/GI: Soft, with normal bowel sounds. No distension or tympany. No guarding or rebound. No evidence of tenderness throughout. Back: No spinal tenderness. No costovertebral tenderness. Skin: Warm, dry with normal turgor. Normal color with no rashes, no lesions, and no evidence of cellulitis. MS/ Extremity: Pulses equal, no cyanosis. Neurovascular intact. Full, normal range of motion. Neuro: Awake and alert, GCS 15, oriented to person, place, time, and situation. Cranial nerves II-XII grossly intact. Motor strength 5/5 in all extremities. Sensory grossly intact. Psych: Awake, alert, with orientation to person, place and time. Behavior, mood, and affect are within normal limits Vital Signs: 06:26 BP 118 / 65; Pulse 105; Resp 16; Temp 98.9(TE); Pulse Ox 99% on R/A; Weight 90.72 kg jb4 (R); Height 5 ft. 4 in. ; Pain 6/10; 07:37 Pulse 93; ec2 06:26 Body Mass Index 34.33 (90.72 kg, 162.56 cm) jb4 06:26 Pain Scale: Adult jb4 [place] Coma Score: 23:27 Eye Response: spontaneous(4). Motor Response: obeys commands(6). Verbal Response: sp4 oriented(5). Total: 15. MDM: 06:42 Patient medically screened. sp4 07:15 Transition of care: Care assumed from Matt Manuel MD. ec2 07:15 ED course: Patient signed out to me by previous physician, in brief patient arrives ec2 today with upper respiratory symptoms. Plan to follow-up lab work and reassess.. 07:47 Data reviewed: vital signs. ED course: Metabolic profile is reassuring, negative flu ec2 and COVID testing, CBC reassuring, urine is noninfectious appearing.. 23:27 Differential diagnosis: viral Infection, bacterial infection, URI, bronchitis, sp4 pneumonia gastroenteritis. 01/16 06:31 Order name: CBC with Diff; Complete Time: 07:37 sp4 01/16 06:31 Order name: CMP; Complete Time: 07:46 sp4 01/16 06:31 Order name: SARS RAPID; Complete Time: 07:46 sp4 01/16 06:31 Order name: Influenza Screen (a \T\ B); Complete Time: 07:46 sp4 01/16 06:31 Order name: Urinalysis W/Microscopic; Complete Time: 07:37 sp4 01/16 06:31 Order name: Test, Urine; Complete Time: 07:22 sp4 Administered Medications: 07:28 Drug: Ketorolac IVP 30 mg IVP once Route: IVP; Site: right hand; ld1 07:28 Drug: Rocephin (cefTRIAXone) IM 1 grams IM once Route: IM; Site: right gluteus; ld1 07:28 Drug: Ondansetron PO 4 mg PO once Route: PO; ld1 07:28 Drug: Acetaminophen PO 1000 mg PO once Route: PO; ld1 07:29 Drug: NS 0.9% IV 1000 ml IV at 1 bolus Per protocol; 1000 mL bolus Route: IV; Rate: 1 ld1 bolus; Site: right hand; Disposition Summary: 01/17/24 07:47 Discharge Ordered Notes: Location: Home ec2 Condition: Stable ec2 Diagnosis - Viral infection, unspecified ec2 Followup: ec2 - With: Private Physician - When: - Reason: Re-evaluation by your physician Discharge Instructions: - Discharge Summary Sheet ec2 - Viral Illness, Adult ec2 Forms: - Work release form ld1 - Medication Reconciliation Form ec2 - Thank You Letter ec2 - Antibiotic Education ec2 - Prescription Opioid Use ec2 - Patient Portal Instructions ec2 - Leadership Thank You Letter ec2 Prescriptions: - Prednisone 20 mg Oral Tablet - take 2 tablets ORAL route once daily for 5 days; 10 tablet; Refills: 0, Product ec2 Selection Permitted Signatures: Dispatcher [employer] Brandon Truong RN RN jb4 Milady Reagan RN RN [email or web address] Matt Manuel MD MD sp4 Jono Elizabeth MD MD ec2 Corrections: (The following items were deleted from the chart) 06:31 06:31 CBC+H.LAB.BRZ ordered. EDMS EDMS 06:31 06:31 COMPREHENSIVE METABOLIC PANEL+C.LAB.BRZ ordered. EDMS EDMS 06:31 SARS-COV-2 Antigen Rapid+I.LAB.BRZ ordered. EDMS EDMS 06:31 Influenza Screen (A \T\ B)+BA.LAB.BRZ ordered. EDMS EDMS 06:31 Urinalysis W/Microscopic+U.LAB.BRZ ordered. EDMS EDMS 06:31 Test, Urine+UC.LAB.BRZ ordered. EDMS EDMS
--- NOTE | 2024-01-17 07:47 | ER ---
Nurse's Notes [facility] Name: Latonia Tabares Age: 23 yrs Sex: Female : 2000 Arrival Date: 01/17/2024 Time: 06:06 Bed 19 Private MD: Diagnosis: Viral infection, unspecified Presentation: 01/16 06:26 Chief complaint: Patient states: I have been having a soar throat since Monday and I am jb4 running a fever. It was 102 at home and I took 400mg of motrin around 3am. Coronavirus screen: At this time, the client does not indicate any symptoms associated with coronavirus-19. Ebola Screen: No symptoms or risks identified at this time. Initial Sepsis Screen: Does the patient meet any 2 criteria? HR > 90 bpm. Yes Does the patient have a suspected source of infection? No. Patient's initial sepsis screen is negative. Risk Assessment: Do you want to hurt yourself or someone else? Patient reports no desire to harm self or others. Onset of symptoms was January 17, 2024. Transition of care: patient was not received from another setting of care. 06:26 Method Of Arrival: Ambulatory jb4 06:26 Acuity: NICHO 4 jb4 Triage Assessment: 06:30 General: Appears in no apparent distress. uncomfortable, Behavior is calm, cooperative, jb4 appropriate for age. Pain: Complains of pain in throat Pain does not radiate. Pain currently is 6 out of 10 on a pain scale. EENT: Throat is clear is reddened with gag reflex present. Neuro: Level of Consciousness is awake, alert, obeys commands, Oriented to person, place, time, situation. Cardiovascular: Patient's skin is warm and dry. Respiratory: Airway is patent Respiratory effort is even, unlabored, Respiratory pattern is regular, symmetrical. GI: No signs and/or symptoms were reported involving the gastrointestinal system. : No signs and/or symptoms were reported regarding the genitourinary system. Derm: Skin is intact, Skin is pink, warm \T\ dry. Musculoskeletal: Circulation, motion, and sensation intact. Range of motion: intact in all extremities. Historical: - Allergies: 06:30 No Known Allergies; jb4 - PMHx: 06:30 None; jb4 - PSHx: 06:30 Right Ankle; jb4 - Immunization history:: Adult Immunizations up to date. - Infectious Disease History:: Denies. - Social history:: Smoking status: Patient/guardian denies using tobacco, but has a distant history of tobacco abuse. - Family history:: not pertinent. Screenin:20 [facility] ED Fall Risk Assessment (Adult) History of falling in the last 3 months, ld1 including since admission No falls in past 3 months (0 pts). Abuse screen: Denies threats or abuse. Denies injuries from another. Nutritional screening: No deficits noted. Tuberculosis screening: No symptoms or risk factors identified. Assessment: 08:20 Respiratory: Airway is patent Respiratory effort is even, unlabored, Breath sounds are ld1 clear. Vital Signs: 06:26 BP 118 / 65; Pulse 105; Resp 16; Temp 98.9(TE); Pulse Ox 99% on R/A; Weight 90.72 kg jb4 (R); Height 5 ft. 4 in. ; Pain 6/10; 07:37 Pulse 93; ec2 06:26 Body Mass Index 34.33 (90.72 kg, 162.56 cm) jb4 06:26 Pain Scale: Adult jb4 [place] Coma Score: 23:27 Eye Response: spontaneous(4). Motor Response: obeys commands(6). Verbal Response: sp4 oriented(5). Total: 15. ED Course: 06:08 Patient arrived in ED. jj6 06:23 Matt Manuel MD is Attending Physician. sp4 06:30 Triage completed. jb4 06:30 Arm band placed on right wrist. jb4 07:14 Milady Reagan, BERNIE is Primary Nurse. ld1 07:14 Attending Physician role handed off by Matt Manuel MD ec2 07:14 Jono Elizabeth MD is Attending Physician. ec2 08:20 Patient has correct armband on for positive identification. Placed in gown. Bed in low ld1 position. Call light in reach. Side rails up X2. media monitor on. Pulse ox on. NIBP on. Door closed. Noise minimized. Warm blanket given. 08:20 No provider procedures requiring assistance completed. IV discontinued, intact, ld1 bleeding controlled, No redness/swelling at site. 08:21 Provided Education on: medication. ld1 Administered Medications: 07:28 Drug: Ketorolac IVP 30 mg IVP once Route: IVP; Site: right hand; ld1 07:28 Drug: Rocephin (cefTRIAXone) IM 1 grams IM once Route: IM; Site: right gluteus; ld1 07:28 Drug: Ondansetron PO 4 mg PO once Route: PO; ld1 07:28 Drug: Acetaminophen PO 1000 mg PO once Route: PO; ld1 07:29 Drug: NS 0.9% IV 1000 ml IV at 1 bolus Per protocol; 1000 mL bolus Route: IV; Rate: 1 ld1 bolus; Site: right hand; Medication: 08:21 VIS not applicable for this client. ld1 Outcome: 07:47 Discharge ordered by . ec2 08:21 Discharged to home ambulatory, ld1 08:21 Condition: stable 08:21 Discharge instructions given to patient, Instructed on discharge instructions, follow up and referral plans. medication usage, Demonstrated understanding of instructions, follow-up care, medications, Prescriptions given X 1, 08:21 Patient left the ED. ld1 Signatures: Brandon Jasmine RN RN jb4 Milady Reagan RN RN ld1 Mary Perez jj6 Matt Manuel MD MD sp4 Jono Elizabeth MD MD ec2
[2024-01-17 09:35] VITALS: BP 118/65; TEMP 98.9; O2SAT 99
== END 2024-01-17 08:21 | disposition home or self-care (01) ==
LOC: ER 06:06
DX: B34.9 Viral infection, unspecified (principal); Z11.52 Encounter for screening for COVID-19
CPT/HCPCS: 36415; 80053; 81001; 81025; 85025; 87804; 87811; J0696; J2001; J2405; J7030

== ENCOUNTER 2024-09-10 12:47 | Emergency (ER) | payer SELFPAY ==
[2024-09-10] MEDS ORDERED: ONDANSETRON 4 MG/2 ML VIAL ONE (14:15)
[2024-09-10] MEDS ORDERED: KETOROLAC 30 MG/ML INJ ONE (14:15)
[2024-09-10] MEDS ORDERED: NA CHLORIDE 0.9% 250 ML ONE (14:16)
[2024-09-10 14:20] LABS: Absolute Basophils 0.1 K/uL (0-0.5); Absolute Lymphocytes (CBC) 2.3 K/uL (0.7-4.9); Absolute Monocytes 0.7 K/uL (0.1-1.3); Absolute Neutrophil 5.8 K/uL (1.8-8.0); Basophils % 0.6 % (0-1.3); Eosinophils % 0.2 % (0-4.4); Hematocrit 37.3 % (36.0-45.0); Hemoglobin 13.1 g/dL (12.0-15.0); Lymphocytes % 25.6 % (15.3-44.8); MCH 29.9 pg (27.0-35.0); MCHC 35.2 g/dL (32.0-36.0); MPV 7.6 fL (7.6-11.3); Monocytes % 8.4 % (3.3-12.3); Neutrophils % 65.2 % (41.7-73.7); Nucleated Red Blood Cells % 0.1 % (0-0); Platelets 291 thou/uL (152-406); RBC Red Blood Cell Count 4.38 M/uL (3.86-4.86); Red Cell Distribution Width 12.3 % (12.1-15.2); Specific Gravity 1.026 (1.005-1.030)
[2024-09-10 14:21] LABS: Specific Gravity 1.026 (1.005-1.030); Sqamous Epithelial <5 /HPF (None Seen); Urine Bacteria None Seen /HPF (<20); Urine Bilirubin NEGATIVE (Negative); Urine Blood 1+ (Negative); Urine Clarity Clear (Clear); Urine Color Light-Yellow (Yellow); Urine Culture Reflex Order NOT NEEDED; Urine Glucose NEGATIVE (Negative); Urine Ketones 2+ (Negative); Urine Microscopic Reflex YN ORDER UMIC; Urine Mucus Slight /HPF (None Seen); Urine Nitrite NEGATIVE (Negative); Urine Protein NEGATIVE (Negative); Urine Urobilinogen 1+ (Normal); Urine WBC <5 /HPF (<5)
[2024-09-10 14:30] LABS: SARS-CoV-2 Antigen CONTROL BLUE LINE VIS/BG OK; SARS-CoV-2 Antigen Rapid Res Negative (Negative)
[2024-09-10 14:34] LABS: ALT/SGPT 15 U/L (13-56); Albumin 3.6 g/dL (3.4-5.0); Albumin/Globulin Ratio 0.9 (1.1-1.8); Alkaline Phosphatase 62 U/L (45-117); Anion Gap 8.4 mEq/L (5.0-15.0); BUN Blood Urea Nitrogen 9 mg/dL (7-18); Bicarbonate 26 mEq/L (21-32); Bilirubin Total 0.4 mg/dL (0.2-1.0); Globulin 4.1 g/dL (2.3-3.5); Glomerular Filtration Rate 127 ml/min (=/>90); Glucose Level 91 mg/dL (74-106); Lipase 31 U/L (13-75); Potassium 3.4 mEq/L (3.5-5.1); Protein, Total 7.7 g/dL (6.4-8.2); Sodium Level 137 mEq/L (136-145)
[2024-09-10 14:37] LABS: AST/SGOT < 10 U/L (15-37)
--- NOTE | 2024-09-10 15:15 | EDPHYS ---
Physician Documentation [facility] Name: Latonia Tabares Age: 23 yrs Sex: Female : 2000 Arrival Date: 09/10/2024 Time: 12:47 Bed 18 Private MD: ED Physician Jono Elizabeth HPI: 09/10 13:44 This 23 yrs old Female presents to ER via Ambulatory with complaints of ec2 Nausea/Vomiting/Diarrhea, Flu Symptoms. 13:44 Patient arrives today for myalgias along with nausea, vomiting, diarrhea. Patient ec2 reports she has been having symptoms for approximately 1 week. Patient reports decreased p.o. intake and generally feeling unwell. =. 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 - Infectious Disease History:: Denies. - Social history:: Smoking status: Patient denies any tobacco usage or history of. ROS: 13:44 Constitutional: as per hpi ec2 Exam: 13:44 Constitutional: GEN: NAD Head: atraumatic Eyes: EOMI Ears: External ears are ec2 normal. CV: regular rate LUNGS: no respiratory distress ABD: non-distended SKIN: no evidence of rashes MSK: no evidence of trauma Vital Signs: 13:33 BP 122 / 90; Pulse 86; Resp 18 S; Temp 98.5(O); Pulse Ox 100% on R/A; Weight 90.72 kg kc6 (R); Height 5 ft. 4 in. (R); Pain 7/10; 14:27 BP 125 / 81; Pulse 74; Resp 17; Pulse Ox 99% on R/A; rs5 15:25 BP 119 / 78; Pulse 70; Resp 17; Pulse Ox 99% on R/A; rs5 13:33 Body Mass Index 34.33 (90.72 kg, 162.56 cm) kc6 13:33 Pain Scale: Adult kc6 MDM: 13:44 Data reviewed: vital signs, nurses notes. ED course: Patient arrives today for nausea, ec2 vomiting, diarrhea. Examination is revealing for. Nontoxic dividual. Will obtain lab work to assess hydration status, will give the patient crystalloid as well as antiemetic and Toradol. Suspect viral process.. 14:10 Medical Screening Exam initiated ec2 09/10 13:39 Order name: CBC with Diff; Complete Time: 14:33 ec2 09/10 13:39 Order name: CMP; Complete Time: 14:41 ec2 09/10 13:39 Order name: Lipase; Complete Time: 14:41 ec2 09/10 13:39 Order name: Test, Urine; Complete Time: 14:33 ec2 09/10 13:39 Order name: Urinalysis w/ reflexes; Complete Time: 14:33 ec2 09/10 13:39 Order name: Influenza Screen (a \T\ B) ec2 09/10 13:39 Order name: SARS RAPID; Complete Time: 14:33 ec2 09/10 14:35 Order name: HCG-Quantitative; Complete Time: 15:03 ec2 09/10 13:39 Order name: IV Saline Lock; Complete Time: 14:25 ec2 09/10 13:39 Order name: Labs collected and sent; Complete Time: 14:25 ec2 Administered Medications: 14:20 Drug: Ketorolac IVP 15 mg IVP once Route: IVP; Site: right antecubital; rs5 15:26 Follow up: Response: No adverse reaction; Pain is decreased rs5 14:20 Drug: NS 0.9% IV 250 ml IV at bolus once; to be given as a bolus over 30 minutes Route: rs5 IV; Rate: bolus; Site: right antecubital; 14:52 Follow up: Response: No adverse reaction; IV Status: Completed infusion rs5 14:20 Drug: Ondansetron IVP 4 mg IVP once; over 2 minutes Route: IVP; Site: right antecubital;rs5 14:42 Follow up: Response: No adverse reaction; Nausea is decreased rs5 Disposition Summary: 09/10/24 15:15 Discharge Ordered Notes: Location: Home ec2 Condition: Stable ec2 Diagnosis - Early ec2 - Viral Illness ec2 Followup: ec2 - With: Private Physician - When: - Reason: Recheck today's complaints Discharge Instructions: - Discharge Summary Sheet ec2 - First Trimester of ec2 Forms: - Medication Reconciliation Form ec2 - Antibiotic Education ec2 - Prescription Opioid Use ec2 - Patient Portal Instructions ec2 - Leadership Thank You Letter ec2 Prescriptions: - Zofran 4 mg Oral Tablet - take 1 tablet ORAL route every 12 hours As needed; 20 tablet; Refills: 0, ec2 Product Selection Permitted Signatures: Dispatcher [employer] Cindy Sherman RN RN kc6 Srinivas Crum RN RN rs5 Jono Elizabeth MD MD ec2 Corrections: (The following items were deleted from the chart) 13:40 13:40 CBC+H.LAB.BRZ ordered. EDMS EDMS 13:40 13:40 COMPREHENSIVE METABOLIC PANEL+C.LAB.BRZ ordered. EDMS EDMS 13:40 13:40 LIPASE+C.LAB.BRZ ordered. EDMS EDMS 13:40 13:40 Test, Urine+UC.LAB.BRZ ordered. EDMS EDMS 13:40 13:40 Urinalysis+U.LAB.BRZ ordered. EDMS EDMS 13:40 13:40 Influenza Screen (A \T\ B)+BA.LAB.BRZ ordered. EDMS EDMS 13:40 13:40 SARS-COV-2 Antigen Rapid+I.LAB.BRZ ordered. EDMS EDMS 14:41 13:44 Patient arrives today for myalgias along with nausea, vomiting, diarrhea. Patient ec2 reports she has been having symptoms for approximately 1 week. Patient reports decreased p.o. intake and generally feeling unwell.. ec2
--- NOTE | 2024-09-10 15:15 | ER ---
Nurse's Notes [facility] Name: Latonia Tabares Age: 23 yrs Sex: Female : 2000 Arrival Date: 09/10/2024 Time: 12:47 Bed 18 Private MD: Diagnosis: Early ;Viral Illness Presentation: 09/10 13:33 Chief complaint: Patient states: n/v/d and body aches since Thanksgiving. Coronavirus kc6 screen: At this time, the client does not indicate any symptoms associated with coronavirus-19. Ebola Screen: No symptoms or risks identified at this time. Initial Sepsis Screen: Does the patient meet any 2 criteria? No. Patient's initial sepsis screen is negative. Does the patient have a suspected source of infection? No. Patient's initial sepsis screen is negative. Risk Assessment: Do you want to hurt yourself or someone else? Patient reports no desire to harm self or others. Onset of symptoms was September 10, 2024. 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 - Infectious Disease History:: Denies. - Social history:: Smoking status: Patient denies any tobacco usage or history of. Screenin:10 [facility] ED Fall Risk Assessment (Adult) History of falling in the last 3 months, rs5 including since admission No falls in past 3 months (0 pts) Confusion or Disorientation No (0 pts) Intoxicated or Sedated No (0 pts) Impaired Gait No (0 pts) Mobility Assist Device Used No (0 pt) Altered Elimination No (0 pt) Score/Fall Risk Level 0 - 2 = Low Risk Oriented to surroundings, Maintained a safe environment. Abuse screen: Denies threats or abuse. Nutritional screening: No deficits noted. Tuberculosis screening: No symptoms or risk factors identified. Assessment: 14:05 Reassessment: pt arrived in room . rs5 14:10 General: Appears in no apparent distress. uncomfortable, Behavior is calm, cooperative. rs5 Pain: Complains of pain in abdomen Pain currently is 6 out of 10 on a pain scale. Quality of pain is described as aching, Is continuous. Neuro: Level of Consciousness is awake, alert, obeys commands, Oriented to person, place, time, situation. Cardiovascular: Patient's skin is warm and dry. Respiratory: Airway is patent Respiratory effort is even, unlabored, Respiratory pattern is regular, symmetrical. GI: Abdomen is round non-distended, Abd is soft and non tender X 4 quads. GI: Reports nausea. : No signs and/or symptoms were reported regarding the genitourinary system. EENT: No signs and/or symptoms were reported regarding the EENT system. Derm: Skin is intact, Skin is pink, warm \T\ dry. 15:25 Reassessment: Patient and/or family updated on plan of care and expected duration. Pain rs5 level reassessed. Patient is alert, oriented x 3, equal unlabored respirations, skin warm/dry/pink. Patient states feeling better. Patient states symptoms have improved. Vital Signs: 13:33 BP 122 / 90; Pulse 86; Resp 18 S; Temp 98.5(O); Pulse Ox 100% on R/A; Weight 90.72 kg kc6 (R); Height 5 ft. 4 in. (R); Pain 7/10; 14:27 BP 125 / 81; Pulse 74; Resp 17; Pulse Ox 99% on R/A; rs5 15:25 BP 119 / 78; Pulse 70; Resp 17; Pulse Ox 99% on R/A; rs5 13:33 Body Mass Index 34.33 (90.72 kg, 162.56 cm) [facility] 13:33 Pain Scale: Adult kc6 ED Course: 12:50 Patient arrived in ED. im 13:24 Jono Elizabeth MD is Attending Physician. ec2 13:36 Triage completed. kc6 13:36 Arm band placed on. kc6 13:58 Srinivas Crum, BERNIE is Primary Nurse. rs5 14:10 Patient has correct armband on for positive identification. Placed in gown. Bed in low rs5 position. Call light in reach. Side rails up X2. 14:20 Inserted saline lock: 20 gauge in right antecubital area, using aseptic technique. rs5 Blood collected. Flushed with 10 mL NS. 14:20 No provider procedures requiring assistance completed. rs5 15:33 IV discontinued, intact, bleeding controlled, No redness/swelling at site. Pressure rs5 dressing applied. Administered Medications: 14:20 Drug: Ketorolac IVP 15 mg IVP once Route: IVP; Site: right antecubital; rs5 15:26 Follow up: Response: No adverse reaction; Pain is decreased rs5 14:20 Drug: NS 0.9% IV 250 ml IV at bolus once; to be given as a bolus over 30 minutes Route: rs5 IV; Rate: bolus; Site: right antecubital; 14:52 Follow up: Response: No adverse reaction; IV Status: Completed infusion rs5 14:20 Drug: Ondansetron IVP 4 mg IVP once; over 2 minutes Route: IVP; Site: right antecubital;rs5 14:42 Follow up: Response: No adverse reaction; Nausea is decreased rs5 Medication: 14:27 VIS not applicable for this client. rs5 Outcome: 15:15 Discharge ordered by . ec2 15:33 Discharged to home ambulatory, rs5 15:33 Condition: stable 15:33 Discharge instructions given to patient, family, Instructed on discharge instructions, follow up and referral plans. medication usage, Demonstrated understanding of instructions, follow-up care, medications, Prescriptions given X 1, 15:34 Patient left the ED. rs5 Signatures: Cindy Ashley RN RN kc6 Srinivas Crum RN RN rs5 Meredith Middleton Edwin, MD MD ec2 Corrections: (The following items were deleted from the chart) 15: 14:44 Response: No adverse reaction rs5 rs5
[2024-09-10 19:17] VITALS: TEMP 98.5
[2024-09-10 19:18] VITALS: O2SAT 99
[2024-09-10 19:20] VITALS: BP 119/78
== END 2024-09-10 15:34 | disposition home or self-care (01) ==
LOC: ER 12:47
DX: O26.891 Other specified pregnancy related conditions, first trimester (principal); B34.9 Viral infection, unspecified; Z3A.00 Weeks of gestation of pregnancy not specified; Z11.52 Encounter for screening for COVID-19
CPT/HCPCS: 36415; 80053; 81001; 81025; 83690; 84702; 85025; 87804; 87811; 96361; 96374; 96375; 99284; J2405; J7050

== ENCOUNTER 2024-10-24 11:13 | Emergency (ER) | payer OTHER ==
--- OUTSIDE RECORDS SUMMARY | 2024-10-24 11:21 | XMS REPORT | Continuity of Care Document ---
Author Name Unknown Address [address] [facility] [address] [place] [address] [facility] Address [address] 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 Name Role Phone PCP, PATIENT DOES NOT HAVE A Primary Care Physic sissy Unavailable RACHEL HANLEY Attending Clinician Unavail able Dayan WHRachel MARIE Attending Clinician + NEGIN AVALOS Attending Clinician Unavailable NEGIN AVALOS Attending Clinician Unavailable Negin Avalos DO Attending Clinician [phone] JENNIFER REYNAGA Attending Clinician Unavailable Jennifer Toney Attending Clinician [phone] THELMA GARCIA Attending Clinician Unavailable Thelma Gore Attending Clinician [phone] Ceci GIBBS, Gissell Attending Clinician Monse vailable Doctor Unassigned, Peralta Attending Clinician U navailable Akinsipe WHJOSAFATP, Rachel C Attending Clinician + MICHA VANESSA Attending Clinician Unavailable Micha Zamudio Attending Clinician [phone] Suzette Michele MD Attending Clinician + [phone]LE Attending Clinician Unavailable Solange Ford MD Attending Clinician + Anatoly Valdovinos MD Attending Clinician + 2 [facility] Attending Clinician Unava NEGIN Woodward Admitting Clinician Unavailable Anatoly Valdovinos MD Admitting Clinician + Payers Payer Name Policy Type Policy Number Effective Date Expirati on Date Source [facility] [id number] 2017 00:00:00 [place] [employer] [id number] 2024 00:00:00 Problems Condition Name Condition Details Condition Category Status Onset Date Resolution Date Last Treatment Date Treating Clinician Comments Source Rh negative state in antepartum period Rh negative state in antepartum period Disease Active 2023-10 00:00: 00 [facility] Supervisio n of high-risk Supervisio n of high-risk Disease Active 2023-10 00:00: 00 [facility] Obesity in Obesity in Disease Active 2018-10 00:00: 00 [facility] BMI 39.0-39.9, adult BMI 39.0-39.9, adult Disease Active 2018-10 0 00:00: 00 [facility] Vomiting Vomiting Disease Resolve d 6 00:00: 00 2024-09-18 00:00:00 2024-09-18 15:46:24 [facility] Obesity (BMI 30-39.9) Obesity (BMI 30-39.9) Disease Resolve d 6- 00:00: 00 2024-09-18 00:00:00 2024-09-18 15:46:29 [facility] Sexually active child Sexually active child Disease Resolve d 2018-10 0-08 00:00: 00 2024-09-18 00:00:00 2024-09-18 15:46:18 [facility] Depo-Prove ra contracept dash status Depo-Prove ra contracept dash status Disease Resolve d 1-10 00:00: 00 2024-09-18 00:00:00 2024-09-18 15:46:26 [facility] Screening examinatio n for STD (sexually transmitte d disease) Screening examinatio n for STD (sexually transmitte d disease) Disease Resolve d 2017-10 0-10 00:00: 00 2024-09-18 00:00:00 2024-09-18 15:46:23 [facility] Over weight Over weight Disease Resolve d 2017-10 0-10 00:00: 00 2024-09-18 00:00:00 2024-09-18 15:46:22 [facility] control control Disease Resolve d 9- 00:00: 00 2024-09-18 00:00:00 2024-09-18 15:46:15 [facility] Allergies, Adverse Reactions, Alerts Allergy Name Allergy Type Status Severity Reaction(s) Onset Date Inactive Date Treating Clinician Comments Source NO KNOWN ALLERGIE S Drug Class Active [facility] Social History Social Habit Start Date Stop Date Quantity Comments Source ASSERTION 2024-08-20 00:00:00 [facility] History SDOH Alcohol Comment Rayle o f [facility] Gender identity [facility]OH [facility] History SDOH Alcohol Binge [facility] Tobacco use and exposure 2024-10-16 00:00:00 2024-10-16 00:00:00 Smokeless tobacco non-user [facility] Alcoholic beverage intake 2024-10-16 00:00:00 2024-10-16 00:00:00 0 /d [facility] History of Social function 2024-09-18 00:00:00 2024-09-18 00:00:00 [facility] Exposure to SARS-CoV-2 (event) 2023-02-13 00:00:00 2023-02-23 17:41:00 Not sure [facility] Alcohol intake 2021-10-18 00:00:00 2021-10-18 00:00:00 0 /d [facility] Education 2021-03-11 00:00:00 2021-03-11 00:00:00 13 [facility] History SDOH Alcohol Frequency 2019-07-16 00:00:00 2019-07-16 00:00:00 1 [facility] Sex assigned at 2002 00:00:00 2000 00:00:00 [facility] Smoking Status Start Date Stop Date Source Never smoked tobacco [facility] Medications Ordered Medication Name Filled Medication Name Start Date Stop Date Current Medication? Ordering Clinician Indication Dosage Frequency Signature (SIG) Comments Components Source cyclobenzap rine 5 mg tablet 10-14 00:00: 00 Yes [id number] 5mg Take 1 tablet by mouth in the morning and 1 tablet at noon and 1 tablet in the evening. [facility] PNV 67-iron ps-folate no.1-dha (VITAFOL ULTRA) 29 mg iron- 1 mg-200 mg Cap 2023-10 00:00: 00 Yes [id number] 1{each} Take 1 Each by mouth in the morning. [facility] proMETHazin e 25 mg tablet 2023-10 00:00: 00 Yes [id number] 25mg Take 1 tablet by mouth every 6 (six) hours as needed for Nausea and Vomiting (N/V). [facility] maalox:diph enhydrAMINE :lidocaine 2 % viscous 1:1:1 (FIRST-MOUT HWASH BLM) oral suspension 15 mL 05-23 21:00: 00 05-23 22:18 :00 No 15mL 15 mL, Oral, ONCE, 1 dose, On Mon05/23/23 at 1600, Routine [facility] pantoprazol e (PROTONIX) injection 40 mg 05-23 21:00: 00 05-23 22:17 :00 No 40mg 40 mg, Slow IV Push, ONCE, 1 dose, On Mon05/23/23 at 1600 [facility] ondansetron (ZOFRAN (PF)) injection 4 mg 05-23 21:00: 00 05-23 22:17 :00 No 4mg 4 mg, Slow IV Push, ONCE, 1 dose, On Mon05/23/23 at 1600, LEOLA [facility] ondansetron 4 mg disintegrat ing tablet 05-23 00:00: 00 09-18 00:00 :00 No [id number] 4mg Take 1 tablet by mouth every 8 (eight) hours as needed for Nausea and Vomiting (N/V). [facility] famotidine (PEPCID) 20 mg tablet 05-23 00:00: 00 06-23 04:59 :00 No [id number] 20mg Take 1 tablet by mouth in the morning and 1 tablet in the evening. Do all this for 30 days. [facility] predniSONE (DELTASONE) tablet 10 mg 02-24 00:30: 00 02-24 00:39 :00 No 10mg 10 mg, Oral, ONCE, 1 dose, On Mon02/23/23 at 1930, LEOLA [facility] amoxicillin -clavulanat e (AUGMENTIN) 875-125 mg per tablet 1 tablet 02-24 00:28: 00 02-24 00:38 :00 No 1{tbl} 1 tablet, Oral, ONCE, 1 dose, On Mon02/23/23 at 1930, LEOLA
Re ason for Anti-Infec tive: Documented Infection< br>Documen candido Infection Site: HEENT
D uration of Therapy: Other (see Comments) [facility] ketorolac (TORADOL) injection 30 mg 02-23 23:09: 00 02-23 23:23 :00 No 30mg 30 mg, Intramuscu lar, ONCE, 1 dose, On Mon02/23/23 at 1815, LEOLA [facility] amoxicillin -clavulanat e 875-125 mg per tablet 02-23 00:00: 00 09-18 00:00 :00 No [id number] 1{tbl} Take 1 tablet by mouth every 12 (twelve) hours. [facility] predniSONE 10 mg tablet 02-23 00:00: 00 02-27 04:59 :00 No [id number] 30mg Take 3 tablets by mouth in the morning for 3 days. [facility] ibuprofen (IBU) tablet 600 mg 10-19 05:45: 00 10-19 04:40 :00 No 600mg 600 mg, Oral, ONCE, 1 dose, [facility] 10[facility]18[facility]21 [facility] 2345[facility] HYDROcodone -acetaminop hen (NORCO) 10-325 mg tablet 1 tablet 05-22 13:15: 00 05-22 12:30 :00 No 1{tbl} 1 tablet, Oral, ONCE, 1 dose, 05/22/21 at 0815, Routine [facility] ibuprofen 800 mg tablet 05-22 00:00: 00 02-23 00:00 :00 No [id number] 800mg Take 1 tablet by mouth every 8 (eight) hours as needed for Pain (scale 4-6) or Temp > 38.5 C. [facility] cefTRIAXone (ROCEPHIN) 1,000 mg in NaCl 0.9% (NS) 50 mL MINI-BAG 03-12 16:00: 00 03-12 16:18 :00 No 1000mg 1,000 mg, IV Piggyback, ONCE, 1 dose, 03/12/21 at 1100, 50 mL
Reas on for Anti-Infec tive: Empiric Therapy for Suspected Infection< br>Empiric Therapy Site: Urine
D uration of therapy: 72 hours [facility] KCL (KLOR-CON M20) tablet 40 mEq 03-12 12:45: 00 03-12 13:07 :00 No 40meq 40 mEq, Oral, ONCE, 1 dose, Mon03/12/21 at 0745, Routine [facility] morpHINE injection 4 mg 03-12 07:16: 17 Yes 4mg 4 mg, Slow IV Push, Q4HPRN, Starting Mon03/12/21 at 0216, Until Discontinu ed, Routine, Pain (scale 7-10) [facility] pantoprazol e (PROTONIX) 40 mg in NaCl 0.9% (NS) 100 mL MINI-BAG 03-12 00:15: 00 Yes 40mg 40 mg, IV Piggyback, Q24H, First dose on Elizabeth 03/11/21 at 1915, Until Discontinu ed, 100 mL [facility] ondansetron 4 mg tablet 03-12 00:00: 00 03-23 04:59 :00 No [id number] 4mg Take 1 tablet by mouth every 8 (eight) hours for 10 days. [facility] cephALEXin 500 mg capsule 03-12 00:00: 00 03-16 04:59 :00 No [id number] 500mg Take 1 capsule by mouth 2 (two) times daily for 3 days. [facility] enoxaparin (LOVENOX) injection 30 mg 03-11 22:00: 00 Yes 30mg 30 mg, Subcutaneo us, DAILY, First dose on Mon03/11/21 at 1700, Until Discontinu ed, Routine [facility] D5W-LR IV infusion 1,000 mL 03-11 21:45: 00 Yes 1000mL at 125 mL/hr, IV Infusion, CONTINUOUS , Starting Mon03/11/21 at 1645, Until Discontinu ed, Routine [facility] morpHINE injection 4 mg 03-11 21:15: 00 03-11 20:32 :00 No 4mg 4 mg, Slow IV Push, ONCE, 1 dose, Mon03/11/21 at 1615, STAT [facility] ondansetron (ZOFRAN (PF)) injection 4 mg 03-11 20:38: 54 Yes 4mg 4 mg, Slow IV Push, Q6HPRN, Starting Elizabeth 03/11/21 at 1538, Until Discontinu ed, Routine, Nausea and Vomiting (N/V) [facility] acetaminoph en-codeine (TYLENOL #3) 300-30 mg tablet 1 tablet 03-11 20:38: 49 03-13 20:37 :49 No 1{tbl} 1 tablet, Oral, Q6HPRN, Starting Elizabeth 03/11/21 at 1538, Until 03/13/21 at 1537, Routine, Pain (scale 4-6) [facility] acetaminoph en (TYLENOL) tablet 650 mg 03-11 20:38: 42 Yes 650mg 650 mg, Oral, Q6HPRN, Starting Elizabeth 03/11/21 at 1538, Until Discontinu ed, Routine, Pain (scale 1-3) [facility] cefTRIAXone (ROCEPHIN) 1,000 mg in NaCl 0.9% (NS) 50 mL MINI-BAG 03-11 18:00: 00 03-11 17:41 :00 No 1000mg 1,000 mg, IV Piggyback, ONCE, 1 dose, Elizabeth 03/11/21 at 1300, 50 mL
Reas on for Anti-Infec tive: Empiric Therapy for Suspected Infection< br>Empiric Therapy Site: Abdominal< br>Duratio n of therapy: 72 hours [facility] iopamidol (ISOVUE 370-500 mL) injection 120 mL 03-11 17:00: 00 03-11 17:00 :00 No [id number] 120mL 120 mL, Intravenou s, ONCE, 1 dose, Elizabeth 03/11/21 at 1200, Routine [facility] morpHINE injection 4 mg 03-11 16:45: 00 03-11 15:43 :00 No 4mg 4 mg, Slow IV Push, ONCE, 1 dose, Elizabeth 03/11/21 at 1145, STAT [facility] ondansetron (ZOFRAN (PF)) injection 4 mg 03-11 16:30: 00 03-11 15:41 :00 No 4mg 4 mg, Slow IV Push, ONCE, 1 dose, Elizabeth 03/11/21 at 1130, [facility] NaCl 0.9% (NS) bolus infusion 1,000 mL 03-11 16:30: 00 03-11 19:19 :00 No 1000mL at 999 mL/hr, 1,000 mL, IV Infusion, ONCE, 1 dose, Elizabeth 03/11/21 at 1130, STAT [facility] sodium chloride (NS) injection 5 mL 03-11 14:57: 42 Yes 5mL 5 mL, Intravenou s, PRN, Starting Elizabeth 03/11/21 at 0957, Until Discontinu ed, Routine, IV line flushing [facility] codeine-gua ifenesin (ROBITUSSIN AC) 10-100 mg/5 mL solution 10 mL 03-06 05:00: 00 03-06 04:26 :00 No 10mL 10 mL, Oral, ONCE, 1 dose, 03/06/21 at 0000, [facility] dexamethaso ne (DECADRON PHOSPHATE) injection 10 mg 03-06 05:00: 00 03-06 04:19 :00 No 10mg 10 mg, Intramuscu lar, ONCE, 1 dose, 03/06/21 at 0000, STAT [facility] methylPREDN ISolone (MEDROL, TILA,) 4 mg tablets 03-06 00:00: 00 Yes [id number] Take by mouth SEE-INSTRU CTIONS. follow package directions [facility] azithromyci n 250 mg tablet 03-06 00:00: 00 Yes [id number] 250mg Take 1 tablet by mouth daily. Take 500 mg day 1, then 250 mg days 2 to 5. [facility] albuterol 90 mcg/actuati on inhaler 03-06 00:00: 00 05-22 00:00 :00 No [id number] 2{puff} Inhale 2 Puffs every 4 (four) hours as needed for Wheezing or Shortness of Breath. [facility] codeine-gua ifenesin 10-100 mg/5 mL solution 03-06 00:00: 00 03-14 04:59 :00 No [id number] 10mL Take 10 mL by mouth every 6 (six) hours as needed for Cough for up to 7 days. Indication s: acute pain [facility] benzonatate 100 mg capsule 02-24 00:00: 00 03-12 00:00 :00 No [id number] 100mg Take 1 capsule by mouth 3 (three) times daily as needed for Cough. [facility] predniSONE 20 mg tablet 02-24 00:00: 00 03-01 04:59 :00 No [id number] 20mg Take 1 tablet by mouth 2 (two) times daily for 4 days. [facility] medroxyPROG ESTERone (DEPO-PROVE RA) injection 150 mg 2018-10 15:00: 00 06-30 14:59 :00 No [id number] [facility] tra[facility]AM) 50 mg tablet 03-24 00:00: 00 03-12 00:00 :00 No 50mg Take 1 tablet by mouth every 6 (six) hours as needed for Pain (scale 4-6). [facility] Immunizations Ordered Immunization Name Filled Immunization Name Date Status Comments Source Flu Injectable MDCK Pres-Free (FLUCELVAX) 2024-09-18 00:00:00 Completed [facility] HPV 2018-10-18 00:00:00 Completed [facility] HPV9 2018-10-18 00:00:00 Completed [facility] HPV 2018-10-18 00:00:00 Completed [facility] HPV9 2018-10-18 00:00:00 Completed [facility] HPV 2018-10-18 00:00:00 Completed [facility] HPV9 2018-10-18 00:00:00 Completed [facility] HPV 2018-10-18 00:00:00 Completed [facility] HPV9 2018-10-18 00:00:00 Completed [facility] HPV 2018-10-18 00:00:00 Completed [facility] HPV9 2018-10-18 00:00:00 Completed [facility] HPV 2018-10-18 00:00:00 Completed [facility] HPV9 2018-10-18 00:00:00 Completed [facility] HPV 2018-10-18 00:00:00 Completed [facility] HPV9 2018-10-18 00:00:00 Completed [facility] HPV 2018-10-18 00:00:00 Completed [facility] HPV9 2018-10-18 00:00:00 Completed [facility] HPV 2018-10-18 00:00:00 Completed [facility] HPV9 2018-10-18 00:00:00 Completed [facility] HPV 2018-10-18 00:00:00 Completed [facility] HPV9 2018-10-18 00:00:00 Completed [facility] HPV 2018-10-18 00:00:00 Completed HPV9 2018-10-18 00:00:00 Completed [facility] HPV 2018-07-18 00:00:00 Completed [facility] HPV9 2018-07-18 00:00:00 Completed [facility] HPV 2018-07-18 00:00:00 Completed [facility] HPV9 2018-07-18 00:00:00 Completed [facility] HPV 2018-07-18 00:00:00 Completed [facility] HPV9 2018-07-18 00:00:00 Completed [facility] HPV 2018-07-18 00:00:00 Completed [facility] HPV9 2018-07-18 00:00:00 Completed [facility] HPV 2018-07-18 00:00:00 Completed [facility] HPV9 2018-07-18 00:00:00 Completed [facility] HPV 2018-07-18 00:00:00 Completed [facility] HPV9 2018-07-18 00:00:00 Completed [facility] HPV 2018-07-18 00:00:00 Completed [facility] HPV9 2018-07-18 00:00:00 Completed [facility] HPV 2018-07-18 00:00:00 Completed [facility] HPV9 2018-07-18 00:00:00 Completed [facility] HPV 2018-07-18 00:00:00 Completed [facility] HPV9 2018-07-18 00:00:00 Completed [facility] HPV 2018-07-18 00:00:00 Completed [facility] HPV9 2018-07-18 00:00:00 Completed [facility] HPV 2018-07-18 00:00:00 Completed HPV9 2018-07-18 00:00:00 Completed [facility] HPV 2015-05-22 00:00:00 Completed [facility] TDAP (ADACEL) VACCINE 2015-05-22 00:00:00 Completed [facility] HPV9 2015-05-22 00:00:00 Completed [facility] Meningococcal Polysaccharide (groups A, C, Y and W-135) conjugate vaccine (MCV4P) 2015-05-22 00:00:00 Completed [facility] HPV 2015-05-22 00:00:00 Completed [facility] TDAP (ADACEL) VACCINE 2015-05-22 00:00:00 Completed [facility] HPV9 2015-05-22 00:00:00 Completed [facility] Meningococcal Polysaccharide (groups A, C, Y and W-135) conjugate vaccine (MCV4P) 2015-05-22 00:00:00 Completed [facility] HPV 2015-05-22 00:00:00 Completed [facility] TDAP (ADACEL) VACCINE 2015-05-22 00:00:00 Completed [facility] HPV9 2015-05-22 00:00:00 Completed [facility] Meningococcal Polysaccharide (groups A, C, Y and W-135) conjugate vaccine (MCV4P) 2015-05-22 00:00:00 Completed [facility] HPV 2015-05-22 00:00:00 Completed [facility] TDAP (ADACEL) VACCINE 2015-05-22 00:00:00 Completed [facility] HPV9 2015-05-22 00:00:00 Completed [facility] Meningococcal Polysaccharide (groups A, C, Y and W-135) conjugate vaccine (MCV4P) 2015-05-22 00:00:00 Completed [facility] HPV 2015-05-22 00:00:00 Completed [facility] TDAP (ADACEL) VACCINE 2015-05-22 00:00:00 Completed [facility] HPV9 2015-05-22 00:00:00 Completed [facility] Meningococcal Polysaccharide (groups A, C, Y and W-135) conjugate vaccine (MCV4P) 2015-05-22 00:00:00 Completed [facility] HPV 2015-05-22 00:00:00 Completed [facility] TDAP (ADACEL) VACCINE 2015-05-22 00:00:00 Completed [facility] HPV9 2015-05-22 00:00:00 Completed [facility] Meningococcal Polysaccharide (groups A, C, Y and W-135) conjugate vaccine (MCV4P) 2015-05-22 00:00:00 Completed [facility] HPV 2015-05-22 00:00:00 Completed [facility] TDAP (ADACEL) VACCINE 2015-05-22 00:00:00 Completed [facility] HPV9 2015-05-22 00:00:00 Completed [facility] Meningococcal Polysaccharide (groups A, C, Y and W-135) conjugate vaccine (MCV4P) 2015-05-22 00:00:00 Completed [facility] HPV 2015-05-22 00:00:00 Completed [facility] TDAP (ADACEL) VACCINE 2015-05-22 00:00:00 Completed [facility] HPV9 2015-05-22 00:00:00 Completed [facility] Meningococcal Polysaccharide (groups A, C, Y and W-135) conjugate vaccine (MCV4P) 2015-05-22 00:00:00 Completed [facility] HPV 2015-05-22 00:00:00 Completed [facility] TDAP (ADACEL) VACCINE 2015-05-22 00:00:00 Completed [facility] HPV9 2015-05-22 00:00:00 Completed [facility] Meningococcal Polysaccharide (groups A, C, Y and W-135) conjugate vaccine (MCV4P) 2015-05-22 00:00:00 Completed [facility] HPV 2015-05-22 00:00:00 Completed [facility] TDAP (ADACEL) VACCINE 2015-05-22 00:00:00 Completed [facility] HPV9 2015-05-22 00:00:00 Completed Meningococcal Polysaccharide (groups A, C, Y and W-135) conjugate vaccine (MCV4P) 2015-05-22 00:00:00 Completed HPV 2015-05-22 00:00:00 Completed TDAP (ADACEL) VACCINE 2015-05-22 00:00:00 Completed [facility] HPV9 2015-05-22 00:00:00 Completed [facility] Meningococcal Polysaccharide (groups A, C, Y and W-135) conjugate vaccine (MCV4P) 2015-05-22 00:00:00 Completed [facility] DTAP 2007-05-08 00:00:00 Completed [facility] HEPATITIS A 2007-05-08 00:00:00 Completed [facility] Polio (IPV/OPV) 2007-05-08 00:00:00 Completed [facility] Proquad (MMR/VARICELLA) 2007-05-08 00:00:00 Completed [facility] DTAP 2007-05-08 00:00:00 Completed [facility] HEPATITIS A 2007-05-08 00:00:00 Completed [facility] Polio (IPV/OPV) 2007-05-08 00:00:00 Completed [facility] Proquad (MMR/VARICELLA) 2007-05-08 00:00:00 Completed [facility] DTAP 2007-05-08 00:00:00 Completed [facility] HEPATITIS A 2007-05-08 00:00:00 Completed [facility] Polio (IPV/OPV) 2007-05-08 00:00:00 Completed [facility] Proquad (MMR/VARICELLA) 2007-05-08 00:00:00 Completed [facility] DTAP 2007-05-08 00:00:00 Completed [facility] HEPATITIS A 2007-05-08 00:00:00 Completed [facility] Polio (IPV/OPV) 2007-05-08 00:00:00 Completed [facility] Proquad (MMR/VARICELLA) 2007-05-08 00:00:00 Completed [facility] DTAP 2007-05-08 00:00:00 Completed [facility] HEPATITIS A 2007-05-08 00:00:00 Completed [facility] Polio (IPV/OPV) 2007-05-08 00:00:00 Completed [facility] Proquad (MMR/VARICELLA) 2007-05-08 00:00:00 Completed [facility] DTAP 2007-05-08 00:00:00 Completed [facility] HEPATITIS A 2007-05-08 00:00:00 Completed [facility] Polio (IPV/OPV) 2007-05-08 00:00:00 Completed [facility] Proquad (MMR/VARICELLA) 2007-05-08 00:00:00 Completed [facility] DTAP 2007-05-08 00:00:00 Completed [facility] HEPATITIS A 2007-05-08 00:00:00 Completed [facility] Polio (IPV/OPV) 2007-05-08 00:00:00 Completed [facility] Proquad (MMR/VARICELLA) 2007-05-08 00:00:00 Completed [facility] DTAP 2007-05-08 00:00:00 Completed [facility] HEPATITIS A 2007-05-08 00:00:00 Completed [facility] Polio (IPV/OPV) 2007-05-08 00:00:00 Completed [facility] Proquad (MMR/VARICELLA) 2007-05-08 00:00:00 Completed [facility] DTAP 2007-05-08 00:00:00 Completed [facility] HEPATITIS A 2007-05-08 00:00:00 Completed [facility] Polio (IPV/OPV) 2007-05-08 00:00:00 Completed [facility] Proquad (MMR/VARICELLA) 2007-05-08 00:00:00 Completed [facility] DTAP 2007-05-08 00:00:00 Completed [facility] HEPATITIS A 2007-05-08 00:00:00 Completed [facility] Polio (IPV/OPV) 2007-05-08 00:00:00 Completed [facility] Proquad (MMR/VARICELLA) 2007-05-08 00:00:00 Completed [facility] DTAP 2007-05-08 00:00:00 Completed HEPATITIS A 2007-05-08 00:00:00 Completed Polio (IPV/OPV) 2007-05-08 00:00:00 Completed Proquad (MMR/VARICELLA) 2007-05-08 00:00:00 Completed DTAP 2006-02-09 00:00:00 Completed [facility] HEPATITIS A 2006-02-09 00:00:00 Completed [facility] [facility] Pneumococcal 13 Conjugate, PCV13 (Prevnar 13) 2006-02-09 00:00:00 Completed [facility] DTAP 2006-02-09 00:00:00 Completed [facility] HEPATITIS A 2006-02-09 00:00:00 Completed [facility] Pneumococcal 13 Conjugate, PCV13 (Prevnar 13) 2006-02-09 00:00:00 Completed [facility] DTAP 2006-02-09 00:00:00 Completed [facility] HEPATITIS A 2006-02-09 00:00:00 Completed [facility] Pneumococcal 13 Conjugate, PCV13 (Prevnar 13) 2006-02-09 00:00:00 Completed [facility] DTAP 2006-02-09 00:00:00 Completed [facility] HEPATITIS A 2006-02-09 00:00:00 Completed [facility] Pneumococcal 13 Conjugate, PCV13 (Prevnar 13) 2006-02-09 00:00:00 Completed [facility] DTAP 2006-02-09 00:00:00 Completed [facility] HEPATITIS A 2006-02-09 00:00:00 Completed [facility] Pneumococcal 13 Conjugate, PCV13 (Prevnar 13) 2006-02-09 00:00:00 Completed [facility] DTAP 2006-02-09 00:00:00 Completed [facility] HEPATITIS A 2006-02-09 00:00:00 Completed [facility] Pneumococcal 13 Conjugate, PCV13 (Prevnar 13) 2006-02-09 00:00:00 Completed [facility] DTAP 2006-02-09 00:00:00 Completed [facility] HEPATITIS A 2006-02-09 00:00:00 Completed [facility] Pneumococcal 13 Conjugate, PCV13 (Prevnar 13) 2006-02-09 00:00:00 Completed [facility] DTAP 2006-02-09 00:00:00 Completed [facility] HEPATITIS A 2006-02-09 00:00:00 Completed [facility] Pneumococcal 13 Conjugate, PCV13 (Prevnar 13) 2006-02-09 00:00:00 Completed [facility] DTAP 2006-02-09 00:00:00 Completed [facility] HEPATITIS A 2006-02-09 00:00:00 Completed [facility] Pneumococcal 13 Conjugate, PCV13 (Prevnar 13) 2006-02-09 00:00:00 Completed [facility] DTAP 2006-02-09 00:00:00 Completed [facility] HEPATITIS A 2006-02-09 00:00:00 Completed [facility] Pneumococcal 13 Conjugate, PCV13 (Prevnar 13) 2006-02-09 00:00:00 Completed [facility] DTAP 2006-02-09 00:00:00 Completed HEPATITIS A 2006-02-09 00:00:00 Completed Pneumococcal 13 Conjugate, PCV13 (Prevnar 13) 2006-02-09 00:00:00 Completed DTAP 2005-03-14 00:00:00 Completed [facility] Hep B, Adol or Pedi Dosage 2005-03-14 00:00:00 Completed [facility] DTAP 2005-03-14 00:00:00 Completed [facility] Hep B, Adol or Pedi Dosage 2005-03-14 00:00:00 Completed [facility] DTAP 2005-03-14 00:00:00 Completed [facility] Hep B, Adol or Pedi Dosage 2005-03-14 00:00:00 Completed [facility] DTAP 2005-03-14 00:00:00 Completed [facility] Hep B, Adol or Pedi Dosage 2005-03-14 00:00:00 Completed [facility] DTAP 2005-03-14 00:00:00 Completed [facility] Hep B, Adol or Pedi Dosage 2005-03-14 00:00:00 Completed [facility] DTAP 2005-03-14 00:00:00 Completed [facility] Hep B, Adol or Pedi Dosage 2005-03-14 00:00:00 Completed [facility] DTAP 2005-03-14 00:00:00 Completed [facility] Hep B, Adol or Pedi Dosage 2005-03-14 00:00:00 Completed [facility] DTAP 2005-03-14 00:00:00 Completed [facility] Hep B, Adol or Pedi Dosage 2005-03-14 00:00:00 Completed [facility] DTAP 2005-03-14 00:00:00 Completed [facility] Hep B, Adol or Pedi Dosage 2005-03-14 00:00:00 Completed [facility] DTAP 2005-03-14 00:00:00 Completed [facility] Hep B, Adol or Pedi Dosage 2005-03-14 00:00:00 Completed [facility] DTAP 2005-03-14 00:00:00 Completed Hep B, Adol or Pedi Dosage 2005-03-14 00:00:00 Completed DTAP 2004-08-04 00:00:00 Completed [facility] HIB 3 Dose Schedule 2004-08-04 00:00:00 Completed [facility] Polio (IPV/OPV) 2004-08-04 00:00:00 Completed [facility] DTAP 2004-08-04 00:00:00 Completed [facility] HIB 3 Dose Schedule 2004-08-04 00:00:00 Completed [facility] Polio (IPV/OPV) 2004-08-04 00:00:00 Completed [facility] DTAP 2004-08-04 00:00:00 Completed [facility] HIB 3 Dose Schedule 2004-08-04 00:00:00 Completed [facility] Polio (IPV/OPV) 2004-08-04 00:00:00 Completed [facility] DTAP 2004-08-04 00:00:00 Completed [facility] HIB 3 Dose Schedule 2004-08-04 00:00:00 Completed [facility] Polio (IPV/OPV) 2004-08-04 00:00:00 Completed [facility] DTAP 2004-08-04 00:00:00 Completed [facility] HIB 3 Dose Schedule 2004-08-04 00:00:00 Completed [facility] Polio (IPV/OPV) 2004-08-04 00:00:00 Completed [facility] DTAP 2004-08-04 00:00:00 Completed [facility] HIB 3 Dose Schedule 2004-08-04 00:00:00 Completed [facility] Polio (IPV/OPV) 2004-08-04 00:00:00 Completed [facility] DTAP 2004-08-04 00:00:00 Completed [facility] HIB 3 Dose Schedule 2004-08-04 00:00:00 Completed [facility] Polio (IPV/OPV) 2004-08-04 00:00:00 Completed [facility] DTAP 2004-08-04 00:00:00 Completed [facility] HIB 3 Dose Schedule 2004-08-04 00:00:00 Completed [facility] Polio (IPV/OPV) 2004-08-04 00:00:00 Completed [facility] DTAP 2004-08-04 00:00:00 Completed [facility] HIB 3 Dose Schedule 2004-08-04 00:00:00 Completed [facility] Polio (IPV/OPV) 2004-08-04 00:00:00 Completed [facility] DTAP 2004-08-04 00:00:00 Completed [facility] HIB 3 Dose Schedule 2004-08-04 00:00:00 Completed [facility] Polio (IPV/OPV) 2004-08-04 00:00:00 Completed [facility] DTAP 2004-08-04 00:00:00 Completed HIB 3 Dose Schedule 2004-08-04 00:00:00 Completed Polio (IPV/OPV) 2004-08-04 00:00:00 Completed DTAP 2003-11-20 00:00:00 Completed [facility] HIB 3 Dose Schedule 2003-11-20 00:00:00 Completed [facility] Hep B, Adol or Pedi Dosage 2003-11-20 00:00:00 Completed [facility] MMR 2003-11-20 00:00:00 Completed [facility] Polio (IPV/OPV) 2003-11-20 00:00:00 Completed [facility] Varicella (varivax)(chicken pox) 2003-11-20 00:00:00 Completed [facility] DTAP 2003-11-20 00:00:00 Completed [facility] HIB 3 Dose Schedule 2003-11-20 00:00:00 Completed [facility] Hep B, Adol or Pedi Dosage 2003-11-20 00:00:00 Completed [facility] MMR 2003-11-20 00:00:00 Completed [facility] Polio (IPV/OPV) 2003-11-20 00:00:00 Completed [facility] Varicella (varivax)(chicken pox) 2003-11-20 00:00:00 Completed [facility] DTAP 2003-11-20 00:00:00 Completed [facility] HIB 3 Dose Schedule 2003-11-20 00:00:00 Completed [facility] Hep B, Adol or Pedi Dosage 2003-11-20 00:00:00 Completed [facility] MMR 2003-11-20 00:00:00 Completed [facility] Polio (IPV/OPV) 2003-11-20 00:00:00 Completed [facility] Varicella (varivax)(chicken pox) 2003-11-20 00:00:00 Completed [facility] DTAP 2003-11-20 00:00:00 Completed [facility] HIB 3 Dose Schedule 2003-11-20 00:00:00 Completed [facility] Hep B, Adol or Pedi Dosage 2003-11-20 00:00:00 Completed [facility] MMR 2003-11-20 00:00:00 Completed [facility] Polio (IPV/OPV) 2003-11-20 00:00:00 Completed [facility] Varicella (varivax)(chicken pox) 2003-11-20 00:00:00 Completed [facility] DTAP 2003-11-20 00:00:00 Completed [facility] HIB 3 Dose Schedule 2003-11-20 00:00:00 Completed [facility] Hep B, Adol or Pedi Dosage 2003-11-20 00:00:00 Completed [facility] MMR 2003-11-20 00:00:00 Completed [facility] Polio (IPV/OPV) 2003-11-20 00:00:00 Completed [facility] Varicella (varivax)(chicken pox) 2003-11-20 00:00:00 Completed [facility] DTAP 2003-11-20 00:00:00 Completed [facility] HIB 3 Dose Schedule 2003-11-20 00:00:00 Completed [facility] Hep B, Adol or Pedi Dosage 2003-11-20 00:00:00 Completed [facility] MMR 2003-11-20 00:00:00 Completed [facility] Polio (IPV/OPV) 2003-11-20 00:00:00 Completed [facility] Varicella (varivax)(chicken pox) 2003-11-20 00:00:00 Completed [facility] DTAP 2003-11-20 00:00:00 Completed [facility] HIB 3 Dose Schedule 2003-11-20 00:00:00 Completed [facility] Hep B, Adol or Pedi Dosage 2003-11-20 00:00:00 Completed [facility] MMR 2003-11-20 00:00:00 Completed [facility] Polio (IPV/OPV) 2003-11-20 00:00:00 Completed [facility] Varicella (varivax)(chicken pox) 2003-11-20 00:00:00 Completed [facility] DTAP 2003-11-20 00:00:00 Completed [facility] HIB 3 Dose Schedule 2003-11-20 00:00:00 Completed [facility] Hep B, Adol or Pedi Dosage 2003-11-20 00:00:00 Completed [facility] MMR 2003-11-20 00:00:00 Completed [facility] Polio (IPV/OPV) 2003-11-20 00:00:00 Completed [facility] Varicella (varivax)(chicken pox) 2003-11-20 00:00:00 Completed [facility] DTAP 2003-11-20 00:00:00 Completed [facility] HIB 3 Dose Schedule 2003-11-20 00:00:00 Completed [facility] Hep B, Adol or Pedi Dosage 2003-11-20 00:00:00 Completed [facility] MMR 2003-11-20 00:00:00 Completed [facility] Polio (IPV/OPV) 2003-11-20 00:00:00 Completed [facility] Varicella (varivax)(chicken pox) 2003-11-20 00:00:00 Completed [facility] DTAP 2003-11-20 00:00:00 Completed [facility] HIB 3 Dose Schedule 2003-11-20 00:00:00 Completed [facility] Hep B, Adol or Pedi Dosage 2003-11-20 00:00:00 Completed [facility] MMR 2003-11-20 00:00:00 Completed [facility] Polio (IPV/OPV) 2003-11-20 00:00:00 Completed [facility] Varicella (varivax)(chicken pox) 2003-11-20 00:00:00 Completed [facility] DTAP 2003-11-20 00:00:00 Completed [facility] HIB 3 Dose Schedule 2003-11-20 00:00:00 Completed Hep B, Adol or Pedi Dosage 2003-11-20 00:00:00 Completed MMR 2003-11-20 00:00:00 Completed Polio (IPV/OPV) 2003-11-20 00:00:00 Completed Varicella (varivax)(chicken pox) 2003-11-20 00:00:00 Completed Hep B, Adol or Pedi Dosage 2003-02-25 00:00:00 Completed [facility] Polio (IPV/OPV) 2003-02-25 00:00:00 Completed [facility] Hep B, Adol or Pedi Dosage 2003-02-25 00:00:00 Completed [facility] Polio (IPV/OPV) 2003-02-25 00:00:00 Completed [facility] Hep B, Adol or Pedi Dosage 2003-02-25 00:00:00 Completed [facility] Polio (IPV/OPV) 2003-02-25 00:00:00 Completed [facility] Hep B, Adol or Pedi Dosage 2003-02-25 00:00:00 Completed [facility] Polio (IPV/OPV) 2003-02-25 00:00:00 Completed [facility] Hep B, Adol or Pedi Dosage 2003-02-25 00:00:00 Completed [facility] Polio (IPV/OPV) 2003-02-25 00:00:00 Completed [facility] Hep B, Adol or Pedi Dosage 2003-02-25 00:00:00 Completed [facility] Polio (IPV/OPV) 2003-02-25 00:00:00 Completed [facility] Hep B, Adol or Pedi Dosage 2003-02-25 00:00:00 Completed [facility] Polio (IPV/OPV) 2003-02-25 00:00:00 Completed [facility] Hep B, Adol or Pedi Dosage 2003-02-25 00:00:00 Completed [facility] Polio (IPV/OPV) 2003-02-25 00:00:00 Completed [facility] Hep B, Adol or Pedi Dosage 2003-02-25 00:00:00 Completed [facility] Polio (IPV/OPV) 2003-02-25 00:00:00 Completed [facility] Hep B, Adol or Pedi Dosage 2003-02-25 00:00:00 Completed [facility] Polio (IPV/OPV) 2003-02-25 00:00:00 Completed [facility] Hep B, Adol or Pedi Dosage 2003-02-25 00:00:00 Completed Polio (IPV/OPV) 2003-02-25 00:00:00 Completed Hep B, Adol or Pedi Dosage 2002 00:00:00 Completed [facility] Hep B, Adol or Pedi Dosage 2002 00:00:00 Completed [facility] Hep B, Adol or Pedi Dosage 2002 00:00:00 Completed [facility] Hep B, Adol or Pedi Dosage 2002 00:00:00 Completed [facility] Hep B, Adol or Pedi Dosage 2002 00:00:00 Completed [facility] Hep B, Adol or Pedi Dosage 2002 00:00:00 Completed [facility] Hep B, Adol or Pedi Dosage 2002 00:00:00 Completed [facility] Hep B, Adol or Pedi Dosage 2002 00:00:00 Completed [facility] Hep B, Adol or Pedi Dosage 2002 00:00:00 Completed [facility] Hep B, Adol or Pedi Dosage 2002 00:00:00 Completed [facility] Hep B, Adol or Pedi Dosage 2002 00:00:00 Completed TDAP (ADACEL) VACCINE Unknown Completed [facility] Meningococcal Polysaccharide (groups A, C, Y and W-135) conjugate vaccine (MCV4P) Unknown Completed [facility] HPV9 Unknown Completed [facility] DTAP Unknown Completed [facility] HIB 3 Dose Schedule Unknown Completed [facility] HEPATITIS A Unknown Completed [facility] Hep B, Adol or Pedi Dosage Unknown Completed [facility] HPV Unknown Completed [facility] MMR Unknown Completed [facility] Pneumococcal 13 Conjugate, PCV13 (Prevnar 13) Unknown Completed [facility] Polio (IPV/OPV) Unknown Completed [facility] Proquad (MMR/VARICELLA) Unknown Completed [facility] Varicella (varivax)(chicken pox) Unknown Completed [facility] TDAP (ADACEL) VACCINE Unknown Completed [facility] Meningococcal Polysaccharide (groups A, C, Y and W-135) conjugate vaccine (MCV4P) Unknown Completed [facility] HPV9 Unknown Completed [facility] DTAP Unknown Completed [facility] HIB 3 Dose Schedule Unknown Completed [facility] HEPATITIS A Unknown Completed [facility] Hep B, Adol or Pedi Dosage Unknown Completed [facility] HPV Unknown Completed [facility] MMR Unknown Completed [facility] Pneumococcal 13 Conjugate, PCV13 (Prevnar 13) Unknown Completed [facility] Polio (IPV/OPV) Unknown Completed [facility] Proquad (MMR/VARICELLA) Unknown Completed [facility] Varicella (varivax)(chicken pox) Unknown Completed [facility] Vital Signs Vital Name Observation Time Observation Value Comments S ource Systolic blood pressure 2024-10-16 22:01:00 119 mm[Hg] [facility] Diastolic blood pressure 2024-10-16 22:01:00 70 mm[Hg] [facility] Heart rate 2024-10-16 22:01:00 83 /min [facility] Body temperature 2024-10-16 22:01:00 36.5 Senait [facility] Respiratory rate 2024-10-16 22:01:00 17 /min [facility] Body height 2024-10-16 22:01:00 165.1 cm [facility] Body weight 2024-10-16 22:01:00 107.548 kg [facility] BMI 2024-10-16 22:01:00 39.46 kg/m2 [facility] Systolic blood pressure 2024-10-14 21:00:00 114 mm[Hg] [facility] Diastolic blood pressure 2024-10-14 21:00:00 87 mm[Hg] [facility] Heart rate 2024-10-14 21:00:00 76 /min [facility] Body temperature 2024-10-14 21:00:00 37.22 Senait [facility] Respiratory rate 2024-10-14 21:00:00 18 /min [facility] Oxygen saturation in Arterial blood by Pulse oximetry 2024-10-14 21:00:00 97 /min [facility] Body height 2024-10-14 17:36:00 165.1 cm [facility] Body weight 2024-10-14 17:36:00 108.863 kg [facility] BMI 2024-10-14 17:36:00 39.94 kg/m2 [facility] Systolic blood pressure 2024-09-18 20:46:00 120 mm[Hg] [facility] Diastolic blood pressure 2024-09-18 20:46:00 71 mm[Hg] [facility] Heart rate 2024-09-18 20:46:00 86 /min [facility] Body temperature 2024-09-18 20:46:00 37.33 Senait [facility] Respiratory rate 2024-09-18 20:46:00 18 /min [facility] Body height 2024-09-18 20:46:00 162.6 cm [facility] Body weight 2024-09-18 20:46:00 108.636 kg [facility] BMI 2024-09-18 20:46:00 41.11 kg/m2 [facility] Systolic blood pressure 2023-05-23 19:12:00 122 mm[Hg] [facility] Diastolic blood pressure 2023-05-23 19:12:00 98 mm[Hg] [facility] Heart rate 2023-05-23 19:12:00 68 /min [facility] Body temperature 2023-05-23 19:12:00 36.61 Senait [facility] Respiratory rate 2023-05-23 19:12:00 18 /min [facility] Body height 2023-05-23 19:12:00 162.6 cm [facility] Body weight 2023-05-23 19:12:00 95.255 kg [facility] BMI 2023-05-23 19:12:00 36.05 kg/m2 [facility] Oxygen saturation in Arterial blood by Pulse oximetry 2023-05-23 19:12:00 99 /min [facility] Systolic blood pressure 2023-02-24 00:41:00 112 mm[Hg] [facility] Diastolic blood pressure 2023-02-24 00:41:00 74 mm[Hg] [facility] Heart rate 2023-02-24 00:41:00 84 /min [facility] Body temperature 2023-02-24 00:41:00 36.94 Senait [facility] Respiratory rate 2023-02-24 00:41:00 20 /min [facility] Oxygen saturation in Arterial blood by Pulse oximetry 2023-02-24 00:41:00 98 /min [facility] Body height 2023-02-23 22:43:00 162.6 cm [facility] Body weight 2023-02-23 22:43:00 95.255 kg [facility] BMI 2023-02-23 22:43:00 36.05 kg/m2 [facility] Systolic blood pressure 2021-10-19 04:27:00 121 mm[Hg] [facility] Diastolic blood pressure 2021-10-19 04:27:00 79 mm[Hg] [facility] Heart rate 2021-10-19 04:27:00 107 /min [facility] Body temperature 2021-10-19 04:27:00 38.72 Senait [facility] Respiratory rate 2021-10-19 04:27:00 18 /min [facility] Body height 2021-10-19 04:27:00 160 cm [facility] Body weight 2021-10-19 04:27:00 90.719 kg [facility] BMI 2021-10-19 04:27:00 35.43 kg/m2 [facility] Body mass index (BMI) [Percentile] Per age and sex 2021-10-19 04:27:00 97.54 % [facility] Oxygen saturation in Arterial blood by Pulse oximetry 2021-10-19 04:27:00 99 /min [facility] Systolic blood pressure 2021-05-22 10:55:00 118 mm[Hg] [facility] Diastolic blood pressure 2021-05-22 10:55:00 70 mm[Hg] [facility] Heart rate 2021-05-22 10:55:00 105 /min [facility] Body temperature 2021-05-22 10:55:00 38.17 Senait [facility] Respiratory rate 2021-05-22 10:55:00 18 /min [facility] Body height 2021-05-22 10:55:00 162.6 cm [facility] Body weight 2021-05-22 10:55:00 97.523 kg [facility] BMI 2021-05-22 10:55:00 36.90 kg/m2 [facility] Oxygen saturation in Arterial blood by Pulse oximetry 2021-05-22 10:55:00 97 /min [facility] Systolic blood pressure 2021-03-12 12:22:00 102 mm[Hg] [facility] Diastolic blood pressure 2021-03-12 12:22:00 57 mm[Hg] [facility] Heart rate 2021-03-12 12:22:00 69 /min [facility] Body temperature 2021-03-12 12:22:00 37.06 Senait [facility] Respiratory rate 2021-03-12 12:22:00 18 /min [facility] Oxygen saturation in Arterial blood by Pulse oximetry 2021-03-12 12:22:00 97 /min [facility] Body height 2021-03-11 20:55:00 165.1 cm [facility] Body weight 2021-03-11 20:55:00 105.461 kg [facility] BMI 2021-03-11 20:55:00 38.69 kg/m2 [facility] Systolic blood pressure 2021-03-06 05:21:03 135 mm[Hg] [facility] Diastolic blood pressure 2021-03-06 05:21:03 82 mm[Hg] [facility] Heart rate 2021-03-06 05:21:03 96 /min [facility] Body temperature 2021-03-06 05:21:03 37.22 Senait [facility] Respiratory rate 2021-03-06 05:21:03 20 /min [facility] Oxygen saturation in Arterial blood by Pulse oximetry 2021-03-06 05:21:03 98 /min [facility] Body height 2021-03-06 03:22:00 165.1 cm [facility] Body weight 2021-03-06 03:22:00 90.719 kg [facility] BMI 2021-03-06 03:22:00 33.28 kg/m2 [facility] Heart rate 2021-02-25 02:31:00 108 /min [facility] Systolic blood pressure 2021-02-25 01:21:00 123 mm[Hg] [facility] Diastolic blood pressure 2021-02-25 01:21:00 82 mm[Hg] [facility] Body temperature 2021-02-25 01:21:00 37.61 Senait [facility] Respiratory rate 2021-02-25 01:21:00 22 /min [facility] Body weight 2021-02-25 01:21:00 90.719 kg [facility] Oxygen saturation in Arterial blood by Pulse oximetry 2021-02-25 01:21:00 99 /min [facility] Systolic blood pressure 2019-10-22 15:39:00 113 mm[Hg] [facility] Diastolic blood pressure 2019-10-22 15:39:00 74 mm[Hg] [facility] Heart rate 2019-10-22 15:39:00 82 /min [facility] Body temperature 2019-10-22 15:39:00 36.83 Senait [facility] Respiratory rate 2019-10-22 15:39:00 16 /min [facility] Body height 2019-10-22 15:39:00 160 cm [facility] Body weight 2019-10-22 15:39:00 103.023 kg [facility] BMI 2019-10-22 15:39:00 40.23 kg/m2 [facility] Procedures Procedure Date / Time Performed Performing Clinician Source POCT URINALYSIS 2024-10-16 00:00:00 Rachel Hanley [facility] FIRST TRIMESTER LESS THAN 14 WEEKS WITH TRANSVAGINAL 2024-10-14 19:24:18 Negin Avalos [facility] COMP. METABOLIC PANEL ([id number]) 2024-10-14 18:34:00 Negin Avalos [facility] TOTAL BETA HCG ASSAY 2024-10-14 18:34:00 Rehan Avalos [facility] CBC WITH DIFF 2024-10-14 18:34:00 Negin Avalos [facility] URINALYSIS 2024-10-14 18:31:00 Negin [facility]os [facility] POCT TEST 2024-10-14 18:31:00 Maxwell Avalos [facility] CBC WITH DIFF 2024-09-18 22:18:00 Rachel Hanley [facility] GLYCOSYLATED HEMOGLOBIN (A1C) 2024-09-18 22:18:00 Rachel Hanley [facility] RUBELLA SCREEN IGG 2024-09-18 22:18:00 Lele Hanley [facility] VZV ANTIBODY SCREEN 2024-09-18 22:18:00 Ilya Hanley [facility] HEPATITIS B SURFACE ANTIGEN 2024-09-18 22:18:00 Rachel Hanley [facility] HCV ANTIBODY 2024-09-18 22:18:00 Rachel Hanley [facility] HB ABO GROUPING 2024-09-18 22:18:00 Rachel Hanley [facility] HIV 1/2 AG-AB WITH REFLEX 2024-09-18 22:18:00 Rachel Hanley [facility] PAP SMEAR-LIQUID BASED-CP 2024-09-18 22:18:00 Rachel Hanley [facility] SYPHILIS IGG/IGM 2024-09-18 22:18:00 Amos Hanley [facility] FLU VACC (), 6 MO-64 YRS, .5ML, IM, TIV (FLUCELVAX) 2024-09-18 20:54:43 Rachel Hanley [facility] POCT URINALYSIS W/O SPECIFIC GRAVITY 2024-09-18 20:38:00 Rachel Hanley [facility] POCT TEST 2024-09-18 20:37:00 Ilya Hanley [facility] POCT TEST 2023-05-23 22:15:00 Tamiko Reynaga [facility] LIPASE 2023-05-23 20:07:00 Jennifer Reynaga [facility] COMP. METABOLIC PANEL ([id number]) 2023-05-23 20:07:00 Jennifer Reynaga [facility] CBC WITH DIFF 2023-05-23 20:07:00 [facility]-23 20:07:00 Jennifer Reynaga [facility] ASSIGNMENT OF BENEFITS 2023-05-23 19:45:58 Docto r Unassigned, Peralta [facility] ASSIGNMENT OF BENEFITS 2023-02-23 23:29:30 Docto r Unassigned, Peralta [facility] RAPID STREP SCREEN FOR GROUP A 2023-02-23 23:18:00 Thelma Garcia [facility] RAPID INFLUENZA A/B 2023-02-23 23:18:00 Jatinder Garcia [facility] COVID-19 (ID NOW RAPID TESTING) 2023-02-23 23:18:00 Thelma Garcia [facility] CONSENT/REFUSAL FOR DIAGNOSIS AND TREATMENT 2023-02-23 22:27:31 Doctor Unassigned, Peralta [facility] RAPID INFLUENZA A/B 2021-10-19 04:38:00 Micha Vanessa [facility] NOTICE OF PRIVACY PRACTICES 2021-10-19 04:25:24 Doctor Unassigned, Peralta [facility] CONSENT/REFUSAL FOR DIAGNOSIS AND TREATMENT 2021-10-19 04:25:07 Doctor Unassigned, Peralta [facility] URINALYSIS 2021-05-22 11:31:00 Suzette Michele [facility] POCT TEST 2021-05-22 11:31:00 Suzette Michele [facility] COVID-19 (ID NOW RAPID TESTING) 2021-05-22 11:17:00 Suzette Michele [facility] CONSENT/REFUSAL FOR DIAGNOSIS AND TREATMENT 2021-05-22 10:19:37 Doctor Unassigned, Peralta [facility] MAGNESIUM 2021-03-12 09:44:00 Anatoly Valdovinos [facility] BASIC METABOLIC PANEL (NA, K, CL, CO2, GLUCOSE, BUN, CREATININE, CA) 2021-03-12 09:44:00 Anatoly Valdovinos [facility] CBC WITH DIFF 2021-03-12 09:44:00 Anatoly Valdovinos [facility] COVID-19 (ID NOW RAPID TESTING) 2021-03-11 17:06:00 Solange Ford [facility] BLOOD CULTURE SCREEN 2021-03-11 17:05:00 Ashok Ford [facility] URINE CULTURE 2021-03-11 17:05:00 Solange Ford [facility] LACTIC ACID WHOLE BLOOD 2021-03-11 17:04:00 Do adriane Ford [facility] BLOOD CULTURE SCREEN 2021-03-11 16:35:00 Ashok Ford [facility] CT ABDOMEN PELVIS W CONTRAST 2021-03-11 15:56:47 Solange Ford [facility] LIPASE 2021-03-11 15:07:00 Solange Ford [facility] COMP. METABOLIC PANEL ([id number]) 2021-03-11 15:07:00 Solange Ford [facility] CBC WITH DIFF 2021-03-11 15:07:00 Solange Ford [facility] URINALYSIS 2021-03-11 15:07:00 Solange Ford [facility] POCT TEST 2021-03-11 15:06:00 Tatiana Ford [facility] NOTICE OF PRIVACY PRACTICES 2021-03-11 14:51:22 Doctor Unassigned, Peralta [facility] CONSENT/REFUSAL FOR DIAGNOSIS AND TREATMENT 2021-03-11 14:50:52 Doctor Unassigned, Peralta [facility] XR CHEST 2 VW 2021-03-06 04:04:44 Jennifer Reynaga [facility] NOTICE OF PRIVACY PRACTICES 2021-03-06 03:15:08 Doctor Unassigned, Peralta [facility] CONSENT/REFUSAL FOR DIAGNOSIS AND TREATMENT 2021-03-06 03:14:52 Doctor Unassigned, Peralta [facility] COVID-19 (ID NOW RAPID TESTING) 2021-02-25 01:56:00 Micha Vanessa [facility] NOTICE OF PRIVACY PRACTICES 2021-02-25 01:15:24 Doctor Unassigned, Peralta [facility] CONSENT/REFUSAL FOR DIAGNOSIS AND TREATMENT 2021-02-25 01:10:32 Doctor Unassigned, Peralta [facility] Encounters Start Date/Time End Date/Time Encounter Type Admission Type Attending Clinicians Care Facility Care Department Encounter ID Source 2021-08-08 22:53:54 Emergency [facility] [id number] [facility] 2021-08-08 22:05:35 Emergency [facility] [id number] [facility] 2021-08-08 20:09:33 Emergency [facility] [id number] [facility] 2024-10-25 14:30:00 2024-10-25 14:30:00 Outpatient R [facility] [id number] [facility] 2024-10-16 16:00:00 2024-10-16 16:21:07 Outpatient R RACHEL HANLEY [facility] [id number] [facility] 2024-10-16 16:00:00 2024-10-16 16:21:07 Routine Visit Rachel Hanley [facility] MATERNAL & CHILD HEALTH [facility] ..840.114 350.1.13.10 4.2.7.2.686 [id number] 107 [id number] [facility] 2024-10-14 11:37:00 2024-10-14 15:05:00 Emergency NEGIN LINDER PHILLIP [facility] ERT [id number] [facility] 2024-10-14 11:37:00 2024-10-14 15:05:00 Emergency Negin Avalos [facility] AT [facility] ..840.114 350.1.13.10 4.2.7.2.686 [id number] [facility] 2024-09-19 00:00:00 2024-09-20 07:43:51 Telephone Rachel Hanley [facility] VFX ARTIST [facility] & CHILD [facility] 1..840.114 350.1.13.10 4.2.7.2.686 [id number] [facility] 2024-09-19 00:00:00 2024-09-20 07:36:32 Telephone Rachel Hanley Reyna [facility] [employer] ARTIST [facility] & CHILD [facility] 1.2.840.114 350.1.13.10 4.2.7.2.686 [id number] 107 [id number] [facility] 2024-09-18 00:00:00 2024-09-19 06:55:10 Patient Secure Msg Rachel Hanley [facility] V[employer] ARTIST [facility] & CHILD [facility] 1.2.840.114 350.1.13.10 4.2.7.2.686 [id number] [facility] 2024-09-18 14:30:00 2024-09-18 16:16:56 Outpatient R RACHEL HANLEY [facility] [id number] [facility] 2024-09-18 14:30:00 2024-09-18 16:16:56 Initial Visit KenRachel goodwin Reyna [facility] V[employer] ARTIST [facility] CHILD [facility] 1.2.840.114 350.1.13.10 4.2.7.2.686 [id number] 107 [id number] [facility] 2023-05-23 14:13:00 2023-05-23 18:16:00 Emergency X RONNELL JENNIFER [facility] ERT [id number] [facility] 2023-05-23 14:13:00 2023-05-23 18:16:00 Emergency Reynaga Jennifer [facility] 1.2840.114 350.1.13.10 4.2.7.2.686 [id number] [facility] 2023-02-23 17:44:00 2023-02-23 19:46:00 Emergency X VIRGILIOTHELMA VALE [facility] ERT [id number] [facility] 2023-02-23 17:44:00 2023-02-23 19:46:00 Emergency Thelma Garcia [facility] 1.2.840.114 350.1.13.10 4.2.7.2.686 [id number] [facility] 2021-10-20 00:00:00 2021-10-20 00:00:00 Patient Secure Msg Gissell Ornelas [facility] MATERNAL & CHILD [facility] 1.2.840.114 350.1.13.10 4.2.7.2.686 [id number] 107 [id number] [facility] 2021-10-19 00:00:00 2021-10-19 00:00:00 Patient Secure Msg Doctor Unassigned, Peralta [facility] 1.2.840.114 350.1.13.10 4.2.7.2.686 [id number] [facility] 2021-10-19 00:00:00 2021-10-19 00:00:00 Patient Secure Msg Rachel Hanley [facility] MATERNAL & CHILD [facility] 1.2.840.114 350.1.13.10 4.2.7.2.686 [id number] [facility] 2021-10-18 22:40:00 2021-10-18 23:11:00 Emergency X MICHA VANESSA [facility] ERT [id number] [facility] 2021-10-18 22:40:00 2021-10-18 23:11:00 Emergency Micha Vanessa R [facility] 1.2.840.114 350.1.13.10 4.2.7.2.686 [id number] [facility] 2021-05-22 05:58:00 2021-05-22 07:44:00 Emergency Suzette Michele S [facility] 1.2.840.114 350.1.13.10 4.2.7.2.686 [id number] [facility] 2021-05-22 05:58:00 2021-05-22 07:44:00 Emergency X SUZETTE MICHELE [facility] ERT [id number] [facility] 2021-05-22 00:00:00 2021-05-22 00:00:00 Orders Only Doctor Unassigned, Peralta [facility] 1.2.840.114 350.1.13.10 4.2.7.2.686 [id number] [facility] 2021-03-11 09:58:00 2021-03-12 13:25:00 Emergency Logan Solangeviktor LucerorohanDavidan [facility] 1.2.840.114 350.1.13.10 4.2.7.2.686 [id number] [facility] 2021-03-05 22:26:00 2021-03-06 00:33:00 Emergency Reynaga Jennifer [facility] 1.2.840.114 350.1.13.10 4.2.7.2.686 [id number] [id number] [facility] 2021-02-24 20:25:00 2021-02-24 21:57:00 Emergency Micha Vanessa [facility] 1.2.840.114 350.1.13.10 4.2.7.2.686 [id number] [facility] 2019-10-22 09:07:40 2019-10-22 09:41:44 Nurse Visit Visit, Darryl-Rmchp Nurse Rachel Hanley [facility]IST [facility]ERNAL [facility] 1.2.840.114 350.1.13.10 4.2.7.2.686 [id number] [facility] Results Test Description Test Time Test Comments Results Result Co mments Source [facility] less than 14 weeks with [id number] 20:15:24EXAM: US FIRST TRIMESTER LESS THAN 14 WEEKS WITH TRANSVAGINAL HISTORY: 24 years-old Female r/o ectopic RLQ/Back pain. No previous US. LMP = 07/05/2024. Beta-hCG: A beta-hCG has not been collected at the time of dictation.mIU/mL. G/P: 1/0. TECHNIQUE: Survey transabdominal and transvaginal ultrasound imaging andcolor Doppler evaluation of the pelvis was performed. M-mode was used toevaluate the heart. [employer] images were obtained. COMPARISON: None FINDINGS: Uterus: The uterus measures 8.9 x 4.7 x 8.1 cm. An intrauterine gestational sac ispresent. The mean sac diameter measures 3.4 cm. The gestational ageaccording to the mean sac diameter is 8 weeks 6 days. The poleisvisualized, with the crown-rump length measuring 2.6 cm. The gestationalage according to the crown-rump length is 9 weeks 1 days. The yolk sacmeasures 0.3 cm. heart tones are present, measuring 183 bpm. Right Adnexa:The right ovary was not visualized. Left Adnexa:The left ovary was not visualized.. Cul-de-sac: No free fluid is present. [facility] Beta HCG [id number] 19:47:05* Test Item Value Reference Range Interpretation Comme nts BETA HCG (test code = 0338819148) 46983.00 See_Comment [Automated [employer]] The system which generated this result transmitted reference range: Non- female and male patients: <5 mIU/mL. The reference range was not used to interpret this result as normal/abnormal. EVERARDO (test code = EVERARDO) Gestational Age ?Range (mIU/mL) 1-10 ?Weeks ?[id number] Weeks ?04217-88355509-41 Weeks ?2663-91213018-26 Weeks ?0696-067466 Biotin has been reported to cause a negative bias, interpret results relative to patient's use of biotin. [facility]. Metabolic Panel (88212)2024-10-14 19:05:41* Test Item Value Reference Range Interpretation Comme nts NA (test code = 3152564545) 137 mmol/L 135-145 K (test code = 5236825667) 3.7 mmol/L 3.5-5.0 CL (test code = 4606838104) 106 mmol/L 98-108 CO2 TOTAL (test code = 8112530596) 25 mmol/L 23-31 AGAP (test code = 9539172178) 6 2-16 BUN (test code = 8519424752) 5 mg/dL 7-23 L GLUCOSE (test code = 4908207349) 87 mg/dL 70-110 CREATININE (test code = 2160-0) 0.46 mg/dL 0.50-1.04 L TOTAL BILI (test code = 4751790281) 0.2 mg/dL 0.1-1.1 CALCIUM (test code = 0763376686) 9.3 mg/dL 8.6-10.6 T PROTEIN (test code = 8530253001) 7.6 g/dL 6.3-8.2 ALBUMIN (test code = 2751613412) 4.3 g/dL 3.5-5.0 ALK PHOS (test code = 9340280117) 51 U/L 34-122 ALTv (test code = 1742-6) 13 U/L 5-35 AST(SGOT) (test code = 4665866858) 14 U/L 13-40 eGFR (test code = 26492-4) 139.0 mL/min/1.73m2 CKD-EPI eGFR (2020). Assuming creatinine has been stable day-to-day for at least three months, the eGFR indicates Category G1 (>= 90 mL/min/1.73 m2) Lab Interpretation (test code = 17825-9) Abnormal [facility] with [id number] 18:58:02* Test Item Value Reference Range Interpretation Comme nts WBC (test code = 6690-2) 7.94 4.30-11.10 RBC (test code = 789-8) 4.51 3.93-5.25 HGB (test code = 718-7) 13.5 g/dL 11.6-15.0 HCT (test code = 4544-3) 38.6 % 35.7-45.2 MCV (test code = 787-2) 85.6 fL 80.6-95.5 MCH (test code = 785-6) 29.9 pg 25.9-32.8 MCHC (test code = 786-4) 35.0 g/dL 31.6-35.1 RDW-SD (test code = 40092-8) 37.1 fL 39.0-49.9 L RDW-CV (test code = 788-0) 12.0 % 12.0-15.5 PLT (test code = 777-3) 244 166-358 MPV (test code = 46512-0) 9.6 fL 9.5-12.9 NRBC/100 WBC (test code = 3179436057) 0.0 0.0-10.0 NRBC x10^3 (test code = 9687218984) See_Comment [Automated messa ge] The system which generated this result transmitted reference range: 10*3/?L. The reference range was not used to interpret this result as normal/abnormal. GRAN MAT (NEUT) % (test code = 770-8) 67.9 % IMM GRAN % (test code = 2799968290) 0.30 % LYMPH % (test code = 736-9) 24.9 % MONO % (test code = 5905-5) 6.0 % EOS % (test code = 713-8) 0.4 % BASO % (test code = 706-2) 0.5 % GRAN MAT x10^3(ANC) (test code = 7012222801) 5.39 10*3/uL 1.88-7.09 IMM GRAN x10^3 (test code = 6276392648) 0.00-0.06 LYMPH x10^3 (test code = 731-0) 1.98 10*3/uL 1.32-3.29 MONO x10^3 (test code = 742-7) 0.48 10*3/uL 0.33-0.92 EOS x10^3 (test code = 711-2) 0.03 10*3/uL 0.03-0.39 BASO x10^3 (test code = 704-7) 0.04 10*3/uL 0.01-0.07 Lab Interpretation (test code = 49692-5) Abnormal [facility] [id number] 18:31:00* Test Item Value Reference Range Interpretation Comme nts POCT PREG (test code = 1605) Positive On board controls acceptable with C Line (test code = 3574) Yes POCT PREG LOT # (test code = 3575) HCG 0000 507676 POCT PREG TEST DATE (test code = 3576) 09/23/2025 Lab Interpretation (test cod e = 10074-8) Normal [facility] Urinalysis w/o Specific [id number] 20:38:00* Test Item Value Reference Range Interpretation Comme nts POCT PH U (test code = 3254) 7 mg/dl 5-8 POCT U LEUK EST (test code = 3263) 1+ Negative - Negative POCT U NIT (test code = 3262) neg Negative - Negati ve POCT U PROT (test code = 3259) trace Negative - Negat dash POCT U GLU (test code = 3256) neg Negative - Negati ve POCT U KETONE (test code = 3258) neg Negative - Neg ative POCT U BLD (test code = 3257) 50 Negative - Negati ve [facility] [id number] 20:37:00* Test Item Value Reference Range Interpretation Comme nts POCT PREG (test code = 1605) Positive On board controls acceptable with C Line (test code = 3574) Yes POCT PREG LOT # (test code = 3575) POCT PREG TEST DATE ( test code = 3576) [facility] [id number] 22:15:00* Test Item Value Reference Range Interpretation Comme nts POCT PREG (test code = 1605) Negative On board controls acceptable with C Line (test code = 3574) Yes POCT PREG LOT # (test code = 3575) HCG [id number] POCT PREG TEST DATE (test code = 3576) 10/11/2024 Lab Interpretation (test cod e = 98475-8) [facility] NOW RAPID TESTING)2021-05-22 12:21:27* Test Item Value Reference Range Interpretation Comme nts SARS-CoV-2 Rapid ID NOW (test code = 01735-2) Positive Not Detected A EVERARDO (test code = EVERARDO) ID NOW COVID-19 As say is an isothermal nucleic acid amplification test intended for the qualitative detection of nucleic acid from SARS-CoV-2 viral RNA in nasopharyngeal ([employer]AL[employer] ENGINEERING MANAGER) specimens. It is used under Emergency Use [...] clinically indicated. Lab Interpretation (test code = 05383-2) [facility]normal [facility] 12:05:50* Test Item Value Reference Range Interpretation Comme nts APPEARANCE (test code = 5539038707) Clear Clear COLOR (test code = 6834425431) Yellow Yellow PH (test code = 7301478463) 4.8-8.0 SP GRAVITY (test code = 6370469556) 1.003-1.030 GLU U QUAL (test code = 2230064118) Normal Normal BLOOD (test code = 7755037591) 1+ Negative A KETONES (test code = 6126594890) Negative Negative PROTEIN (test code = 2887-8) Negative Negative UROBILIN (test code = 9112657390) Normal Normal BILIRUBIN (test code = 9073655420) Negative Negative NITRITE (test code = 4081182523) Negative Negative LEUK EMILIANO (test code = 2789214939) Negative Negative RBC/HPF (test code = 5004860751) See_Comment [Automated [employer]] The system which generated this result transmitted reference range: 0 - 3 HPF. The reference range was not used to interpret this result as normal/abnormal. WBC/HPF (test code = 5406300129) See_Comment [Automated [employer]] The system which generated this result transmitted reference range: 0 - 5 HPF. The reference range was not used to interpret this result as normal/abnormal. BACTERIA (test code = 7358828614) Few Negative A SQ EPITH (test code = 0194709634) HPF TRANS EPI (test code = 5564043820) <1 See_Comment [Automated messa ge] The system which generated this result transmitted reference range: <=1 HPF. The reference range was not used to interpret this result as normal/abnormal. Lab Interpretation (test code = 02880-0) [facility]normal [facility] [id number] 11:31:00* Test Item Value Reference Range Interpretation Comme nts POCT PREG (test code = 1605) Negative On board controls acceptable with C Line (test code = 3574) Present POCT PREG LOT # (test code = 3575) HCG [id number] POCT PREG TEST DATE ( test code = 3576) 10/08/2022 Lab Interpretation (test cod e = 59598-3) Normal [facility] [id number] 17:42:24* Test Item Value Reference Range Interpretation Comme nts URINE CULTURE (test code = 630-4) 10,000 - 100,000 CFU/mL mixed aerobic organisms - suggests endogenous microbial contamination [facility] (NA, K, CL, CO2, GLUCOSE, BUN, CREATININE, CA)2021-03-12 11:27:06* Test Item Value Reference Range Interpretation Comme nts NA (test code = 3659879206) 137 mmol/L 135-145 K (test code = 8389491383) 3.1 mmol/L 3.5-5.0 L CL (test code = 4621304758) 103 mmol/L 98-108 CO2 TOTAL (test code = 3262675885) 27 mmol/L 23-31 AGAP (test code = 1963172370) 2-16 BUN (test code = 3535074971) 9 mg/dL 7-23 GLUCOSE (test code = 8427700199) 82 mg/dL 70-110 CREATININE (test code = 2886069187) 0.53 mg/dL 0.50-1.04 CALCIUM (test code = 4736950601) 8.9 mg/dL 8.6-10.6 eGFR (test code = 0374945814) mL/min/1.73m2 EVERARDO (test code = EVERARDO) Association [...] imaging tests). Lab Interpretation (test code = 22159-5) Abnormal [facility] Hospital[facility] [id number] 11:22:32* Test Item Value Reference Range Interpretation Comme nts MAGNESIUM (test code = 9517997206) 2.1 mg/dL 1.7-2.4 Lab Interpretation (test cod e = 60467-1) Normal [facility] with [id number] 11:05:52* Test Item Value Reference Range Interpretation Comme nts WBC (test code = 6690-2) See_Comment [Automated [employer]] The system which generated this result transmitted reference range: 4.50 - 13.50 10*3/?L. The reference range was not used to interpret this result as normal/abnormal. RBC (test code = 789-8) See_Comment [Automated [employer]] The system which generated this result transmitted [...] 34.4 g/dL 32.0-36.0 RDW-SD (test code = 98879-6) 37.9 fL 38.5-49.0 L RDW-CV (test code = 788-0) 12.3 % 11.5-14.0 PLT (test code = 777-3) See_Comment [Automated messa ge] The system which generated this result transmitted reference range: 135 - 361 10*3/?L. The reference range was not used to interpret this result as normal/abnormal. MPV (test code = 24550-4) 10.1 fL 9.4-13.3 NRBC/100 WBC (test code = 3704357667) See_Comment [Automated [employer]] The system which generated this result transmitted reference range: 0.0 - 10.0 /100 WBCs. The reference range was not used to interpret this result as normal/abnormal. NRBC x10^3 (test code = 4606359197) <0.01 See_Comment [Automated messa ge] The system which generated this result transmitted reference range: 10*3/?L. The reference range was not used to interpret this result as normal/abnormal. GRAN MAT (NEUT) % (test code = 770-8) 59.8 % IMM GRAN % (test code = 8632463418) 0.80 % LYMPH % (test code = 736-9) 26.3 % MONO % (test code = 5905-5) 12.3 % EOS % (test code = 713-8) 0.5 % BASO % (test code = 706-2) 0.3 % GRAN MAT x10^3(ANC) (test code = 0833954849) 3.91 10*3/uL 1.50-10.30 IMM GRAN x10^3 (test code = 2315394423) 0.05 10*3/uL 0.00-0.06 LYMPH x10^3 (test code = 731-0) 1.72 10*3/uL 0.70-7.40 MONO x10^3 (test code = 742-7) 0.80 10*3/uL 0.00-0.50 H EOS x10^3 (test code = 711-2) 0.03 10*3/uL 0.00-0.40 BASO x10^3 (test code = 704-7) <0.03 0.00-0.10 Lab Interpretation (test code = 18275-1) [facility] ([facility] NOW RAPID TESTING)2021-03-11 18:10:27* Test Item Value Reference Range Interpretation Comme nts SARS-CoV-2 Rapid ID NOW (test code = 81634-2) Not Detected Not Detected EVERARDO (test code = EVERARDO) ID NOW COVID-19 As say is an isothermal nucleic acid amplification test intended for the qualitative detection of nucleic acid from SARS-CoV-2 viral RNA in nasopharyngeal ([employer]ALES ENGINEERING MANAGER) specimens. It is used under Emergency Use [...] clinically indicated. Lab Interpretation (test code = 19999-1) Normal [facility] Hospital[facility] Whole [id number] 17:11:07* Test Item Value Reference Range Interpretation Comme nts LACTIC ACID (test code = 4124679510) 0.91 mmol/L 0.50-2.20 Lab Interpretation (test cod e = 09838-3) Normal [facility] PELVIS W [id number] 16:28:25No acute abnormality identified. INDICATION: ?Abdominal abscess/infection suspected ORDERING PROVIDER: STACEY FORD TECHNIQUE: ?HelicalCT imaging was performed through [...] INDICATION: Abdominal abscess/infection suspected ORDERING PROVIDER: SOLANGE FORDTECHNIQUE: Helical CT imagingwas performed through the abdomen [...] or abscess is noted.IMPRESSIONNo acute abnormality identified. [facility] [id number] 16:05:33* Test Item Value Reference Range Interpretation [...] 34.6 g/dL 32.0-36.0 RDW-SD (test code = 15349-6) 36.3 fL 38.5-49.0 L RDW-CV (test code = 788-0) 11.9 % 11.5-14.0 PLT (test code = 777-3) See_Comment H [Automated message] The system which generated this result transmitted reference range: 135 - 361 10*3/?L. The reference range was not used to interpret this result as normal/abnormal. MPV (test code = 98800-9) 9.6 fL 9.4-13.3 NRBC/100 WBC (test code = 0284854776) See_Comment [Automated message] The system which generated this result transmitted reference range: 0.0 - 10.0 /100 WBCs. The reference range was not used to interpret this result as normal/abnormal. NRBC x10^3 (test code = 7521453556) <0.01 See_Comment [Automated message] The system which generated this result transmitted reference range: 10*3/?L. The reference range was not used to interpret this result as normal/abnormal. GRAN MAT (NEUT) % (test code = 770-8) 86.3 % IMM GRAN % (test code = 7306562007) 0.90 % LYMPH % (test code = 736-9) 6.3 % MONO % (test code = 5905-5) 6.1 % EOS % (test code = 713-8) 0.1 % BASO % (test code = 706-2) 0.3 % GRAN MAT x10^3(ANC) (test code = 9636873227) 20.00 10*3/uL 1.50-10.30 H IMM GRAN x10^3 (test code = 7486806533) 0.21 10*3/uL 0.00-0.06 H LYMPH x10^3 (test code = 731-0) 1.45 10*3/uL 0.70-7.40 MONO x10^3 (test code = 742-7) 1.42 10*3/uL 0.00-0.50 H EOS x10^3 (test code = 711-2) <0.03 0.00-0.40 BASO x10^3 (test code = 704-7) 0.07 10*3/uL 0.00-0.10 Lab Interpretation (test code = 07250-0) [facility]* Test Item Value Reference Range Interpretation Comme nts APPEARANCE (test code = 0879623009) Hazy Clear A COLOR (test code = 4662975854) Yellow Yellow PH (test code = 6585899374) 4.8-8.0 SP GRAVITY (test code = 1413976725) 1.003-1.030 GLU U QUAL (test code = 7733874233) Normal Normal BLOOD (test code = 9607010457) 1+ Negative A KETONES (test code = 9219806916) Negative Negative PROTEIN (test code = 2887-8) Negative Negative UROBILIN (test code = 7856062428) Normal Normal BILIRUBIN (test code = 8899448571) Negative Negative NITRITE (test code = 3616234848) Negative Negative LEUK EMILIANO (test code = 4540663971) 500/uL Negative A RBC/HPF (test code = 3074613880) See_Comment H [Automated messa ge] The system which generated this result transmitted reference range: 0 - 3 HPF. The reference range was not used to interpret this result as normal/abnormal. WBC/HPF (test code = 3836554766) See_Comment H [Automated messa ge] The system which generated this result transmitted reference range: 0 - 5 HPF. The reference range was not used to interpret this result as normal/abnormal. BACTERIA (test code = 7359262502) Few Negative A MUCOUS (test code = 4146946684) Slight Negative LPF A SQ EPITH (test code = 0440829551) HPF Lab Interpretation (test code = 70536-5) [facility]normal [facility] [id number] 15:37:26* Test Item Value Reference Range Interpretation Comme nts NA (test code = 8193722694) 137 mmol/L 135-145 K (test code = 9830889174) 3.9 mmol/L 3.5-5.0 CL (test code = 4714115044) 104 mmol/L 98-108 CO2 TOTAL (test code = 4411536728) 25 mmol/L 23-31 AGAP (test code = 8708092231) 2-16 BUN (test code = 4296091525) 15 mg/dL 7-23 GLUCOSE (test code = 2359625669) 106 mg/dL 70-110 CREATININE (test code = 4933834409) 0.54 mg/dL 0.50-1.04 TOTAL BILI (test code = 4822199722) 0.8 mg/dL 0.1-1.1 CALCIUM (test code = 7522038393) 9.4 mg/dL 8.6-10.6 T PROTEIN (test code = 2227085888) 7.9 g/dL 6.3-8.2 ALBUMIN (test code = 4226603907) 4.5 g/dL 3.5-5.0 ALK PHOS (test code = 7298861573) 87 U/L 34-122 ALTv (test code = 1742-6) 21 U/L 5-35 AST(SGOT) (test code = 7867068730) 21 U/L 13-40 eGFR (test code = 6026422180) mL/min/1.73m2 EVERARDO (test code = EVERARDO) Association [...] or urine or abnormalities in imaging tests). [facility], [id number] 15:36:45* Test Item Value Reference Range Interpretation Comme nts LIPASE (test code = 9606886555) 52 U/L 0-220 Lab Interpretation (test cod e = 56503-0) Normal [facility] [id number] 15:06:00* Test Item Value Reference Range Interpretation Comme nts POCT PREG (test code = 1605) negative On board controls acceptable with C Line (test code = 3574) present POCT PREG LOT # (test code = 3575) [id number] POCT PREG TEST DATE ( test code = 3576) 09/07/2022 Lab Interpretation (test cod e = 32497-0) Normal [facility]OVID[facility] (ID NOW RAPID TESTING)2021-02-25 02:15:05* Test Item Value Reference Range Interpretation Comme nts SARS-CoV-2 Rapid ID NOW (test code = 46900-3) Not Detected Not Detected EVERARDO (test code = EVERARDO) ID NOW COVID-19 As say is an isothermal nucleic acid amplification test intended for the qualitative detection of nucleic acid from SARS-CoV-2 viral RNA in nasopharyngeal (SALES ENGINEERING MANAGER) specimens. It is used under Emergency Use [...] clinically indicated. Lab Interpretation (test code = 01670-5) Normal [facility]"
--- NOTE | 2024-10-24 11:54 | ER ---
Nurse's Notes [facility] Name: Latonia Tabares Age: 24 yrs Sex: Female : 2000 Arrival Date: 10/24/2024 Time: 11:13 Bed 12 Private MD: Diagnosis: Viral lesion mouth, Presentation: 10/24 11:25 Chief complaint: Patient states: itchy bumps on tongue x 3 days. Coronavirus screen: ss Client denies travel out of the [place] in the last 14 days. Ebola Screen: Patient denies exposure to infectious person. Patient denies travel to an Ebola-affected area in the 21 days before illness onset. Initial Sepsis Screen: Does the patient meet any 2 criteria? No. Patient's initial sepsis screen is negative. Does the patient have a suspected source of infection? No. Patient's initial sepsis screen is negative. Risk Assessment: Do you want to hurt yourself or someone else? Patient reports no desire to harm self or others. Onset of symptoms was October 21, 2024. 11:25 Method Of Arrival: Ambulatory ss 11:25 Acuity: NICHO 5 ss QUALITY ASSURANCE MONITOR CHASSIS: 11:27 LMP 08/2024, unknown ss Historical: - Allergies: 11:27 No Known Allergies; ss - Home Meds: 11:27 None [Active]; ss - PMHx: 11:27 None; ss - PSHx: 11:27 Right Ankle; ss - Infectious Disease History:: Denies. Screenin:28 Abuse screen: Denies threats or abuse. Denies injuries from another. Nutritional ss screening: No deficits noted. Tuberculosis screening: Never had TB. Assessment: 11:28 General: Appears in no apparent distress. comfortable, Behavior is calm, cooperative, ss Denies fever, feeling ill, fatigue, chills. Pain: Denies pain. Neuro: Level of Consciousness is awake, alert, obeys commands, Oriented to person, place, time, situation. Respiratory: Airway is patent Respiratory effort is even, unlabored, Respiratory pattern is regular, symmetrical. GI: Patient currently denies diarrhea, nausea, vomiting. : No signs and/or symptoms were reported regarding the genitourinary system. EENT: Oral mucosa is moist. Throat is clear. Derm: Skin is intact, is healthy with good turgor, Skin is pink, warm \T\ dry. normal. Vital Signs: 11:25 BP 120 / 68; Pulse 78; Resp 14; Temp 98.7(O); Pulse Ox 100% ; Weight 102.06 kg; Height ss 5 ft. 4 in. ; Pain 0/10; 11:25 Body Mass Index 38.62 (102.06 kg, 162.56 cm) ss 11:25 Pain Scale: Adult ss ED Course: 11:14 Patient arrived in ED. im 11:19 Kian Guzman MD is Attending Physician. sp3 11:27 Triage completed. ss 11:27 Arm band placed on right wrist. ss 11:28 Lenora Pritchard RN is Primary Nurse. ss 11:28 Patient has correct armband on for positive identification. Bed in low position. ss 12:07 No provider procedures requiring assistance completed. Patient did not have IV access ss during this emergency room visit. Administered Medications: No medications were administered Medication: 11:28 VIS not applicable for this client. ss Outcome: 11:54 Discharge ordered by . sp3 12:07 Discharged to home ambulatory, 12:07 Condition: good 12:07 Discharge instructions given to patient, Instructed on discharge instructions, follow up and referral plans. Demonstrated understanding of instructions, follow-up care, 12:07 Patient left the ED. ss Signatures: Lenora Pritchard, BERNIE RN Kian Guzman MD MD sp3 Meredith Middleton
--- NOTE | 2024-10-24 11:54 | EDPHYS ---
Physician Documentation [facility] Name: Latonia Tabares Age: 24 yrs Sex: Female : 2000 Arrival Date: 10/24/2024 Time: 11:13 Bed 12 Private MD: ED Physician Kian Guzman HPI: 10/24 11:50 This 24 yrs old Female presents to ER via Ambulatory with complaints of bumps on tongue.sp3 11:50 24-year-old female at 12 weeks presents with "bumps on the tongue". She sp3 denies any other symptoms including sore throat, cough, fever, rash anywhere else, history of herpes/cold sores, or any other signs or symptoms on ROS at this time.. 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 ROS: 11:51 Constitutional: Negative for fever, chills, and weight loss, Eyes: Negative for injury, sp3 pain, redness, and discharge, Neck: Negative for injury, pain, and swelling, Cardiovascular: Negative for chest pain, palpitations, and edema, Respiratory: Negative for shortness of breath, cough, wheezing, and pleuritic chest pain, Abdomen/GI: Negative for abdominal pain, nausea, vomiting, diarrhea, and constipation, Back: Negative for injury and pain, : Negative for injury, bleeding, discharge, and swelling, MS/Extremity: Negative for injury and deformity, Skin: Negative for injury, rash, and discoloration, Neuro: Negative for headache, weakness, numbness, tingling, and seizure, Psych: Negative for depression, anxiety, suicide ideation, homicidal ideation, and hallucinations, Allergy/Immunology: Negative for hives, rash, and allergies, Endocrine: Negative for neck swelling, polydipsia, polyuria, polyphagia, and marked weight changes, Hematologic/Lymphatic: Negative for swollen nodes, abnormal bleeding, and unusual bruising, 11:51 All other systems are negative, Exam: 11:51 Constitutional: This is a well developed, well nourished patient who is awake, alert, sp3 and in no acute distress. Head/Face: Normocephalic, atraumatic. Eyes: Pupils equal round and reactive to light, extra-ocular motions intact. Lids and lashes normal. Conjunctiva and sclera are non-icteric and not injected. Cornea within normal limits. Periorbital areas with no swelling, redness, or edema. Neck: Trachea midline, no thyromegaly or masses palpated, and no cervical lymphadenopathy. Supple, full range of motion without nuchal rigidity, or vertebral point tenderness. No Meningismus. Chest/axilla: Normal chest wall appearance and motion. Nontender with no deformity. No lesions are appreciated. Cardiovascular: Regular rate and rhythm with a normal S1 and S2. No gallops, murmurs, or rubs. Normal PMI, no JVD. No pulse deficits. Respiratory: Lungs have equal breath sounds bilaterally, clear to auscultation and percussion. No rales, rhonchi or wheezes noted. No increased work of breathing, no retractions or nasal flaring. Abdomen/GI: Soft, non-tender, with normal bowel sounds. No distension or tympany. No guarding or rebound. No evidence of tenderness throughout. Back: No spinal tenderness. No costovertebral tenderness. Full range of motion. Skin: Warm, dry with normal turgor. Normal color with no rashes, no lesions, and no evidence of cellulitis. MS/ Extremity: Pulses equal, no cyanosis. Neurovascular intact. Full, normal range of motion. Neuro: Awake and alert, GCS 15, oriented to person, place, time, and situation. Cranial nerves II-XII grossly intact. Motor strength 5/5 in all extremities. Sensory grossly intact. Cerebellar exam normal. Normal gait. Psych: Awake, alert, with orientation to person, place and time. Behavior, mood, and affect are within normal limits. 11:51 ENT: Patient with mild nonvesicular lesions and a papular fashion on the posterior aspect of the tongue. No bleeding, sloughing, vesicles, open lesions or any other concerning findings noted.. Vital Signs: 11:25 BP 120 / 68; Pulse 78; Resp 14; Temp 98.7(O); Pulse Ox 100% ; Weight 102.06 kg; Height ss 5 ft. 4 in. ; Pain 0/10; 11:25 Body Mass Index 38.62 (102.06 kg, 162.56 cm) ss 11:25 Pain Scale: Adult ss MDM: 11:21 Medical Screening Exam initiated sp3 11:52 Data reviewed: vital signs, nurses notes. ED course: 24-year-old female with "bumps" on sp3 her tongue. Probable viral pattern. 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 Patient has upcoming appointment with OB and I have advised her to get vaginal probes for various viral infections. Patient with normal vital signs currently. I do not believe patient has coxsackie, influenza, CMV, COVID, herpes, or any other critical or concerning pathology. Will reassure patient for now and have her follow-up with OB. She is to return here for fever or any new or concerning symptoms.. Administered Medications: No medications were administered Disposition Summary: 10/24/24 11:54 Discharge Ordered Notes: Location: Home sp3 Condition: Stable sp3 Diagnosis - Viral lesion mouth, sp3 Followup: sp3 - With: Private Physician - When: Upon discharge from the Emergency Department - Reason: Continuance of care Discharge Instructions: - Discharge Summary Sheet sp3 - and Cytomegalovirus sp3 - Viral Illness, Adult sp3 Forms: - Work release form ss - Medication Reconciliation Form sp3 - Antibiotic Education sp3 - Prescription Opioid Use sp3 - Patient Portal Instructions sp3 - Leadership Thank You Letter sp3 Signatures: Lenora Pritchard RN RN ss Kian Guzman MD MD sp3
[2024-10-25 02:54] VITALS: BP 120/68; TEMP 98.7; O2SAT 100
== END 2024-10-24 12:07 | disposition home or self-care (01) ==
LOC: ER 11:13
DX: O99.611 Diseases of the digestive system complicating pregnancy, first trimester (principal); Z3A.12 12 weeks gestation of pregnancy
CPT/HCPCS: 99282

== ENCOUNTER 2024-11-10 11:07 | Emergency (ER) | payer OTHER ==
--- OUTSIDE RECORDS SUMMARY | 2024-11-10 11:16 | XMS REPORT | Continuity of Care Document ---
Author Name Unknown Address [address] [facility] [address] [place] [address] [facility] Address [address] 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 Name Role Phone Vivienne Weiner Primary Care Physician RACHEL HANLEY Attending Clinician Unavail able Ayala Han CNM Attending Clinician [phone] Rachel Sorenson Attending Clinician + Vicki Light RN Attending Clinician UnavailFaiza Bauer Attending Clinician [phone] Doctor Unassigned, West Attending Clinician U FAIZA Clark Attending Clinician Unavailable Unknown, Attending Attending Clinician Unavailab CHRISTINE Mcdaniels Attending Clinician Unavailable CHRISTINE CHAU Attending Clinician Unavailable CHRISTINE CHAU Attending Clinician Unavailable AYALA HAN Attending Clinician UnavailNEGIN Mars Attending Clinician Unavailable NEGIN AVALOS Attending Clinician Unavailable Negin Avalos DO Attending Clinician + [phone] JENNIFER REYNAGA Attending Clinician Unavailable Reynaga KNITTING TEACHER, Jennifer Attending Clinician [phone] THELMA GARCIA Attending Clinician Unavailable Jose KNITTING TEACHERThelma Del Castillo Attending Clinician + [phone] Ceci RN, Gissell Attending Clinician Monse vailable Doctor Unassigned, West Attending Clinician U navailable Akinsigarett WHJOSAFATPRachel Attending Clinician + MICHA VANSESA Attending Clinician Unavailable Micha Zamudio Attending Clinician +[phone] Suzette Michele MD Attending Clinician + [phone] SUZETTE MICHELE Attending Clinician Unavailable Solange Ford MD Attending Clinician + [phone] Anatoly Valdovinos MD Attending Clinician + [phone] [facility] Unava ilable NEGIN AVALOS Admitting Clinician Unavailable Anatoly Valdovinos MD Admitting Clinician + [phone] Payers Payer Name Policy Type Policy Number Effective Date Expirati on Date Source [facility] [place] [facility] [id number] 2017 00:00:00 [place] [employer] [id number] 2024 00:00:00 Problems Condition Name Condition Details Condition Category Status Onset Date Resolution Date Last Treatment Date Treating Clinician Comments Source Rh negative state in antepartum period Rh negative state in antepartum period Disease Active 2023-10 00:00: 00 [facility] Supervisio n of high-risk Supervisio n of high-risk Disease Active 2023-10 00:00: 00 [facility] Obesity in Obesity in Disease Active 2018-10 008 00:00: 00 [facility] BMI 39.0-39.9, adult BMI 39.0-39.9, adult Disease Active 2019- 0-08 00:00: 00 [facility] Vomiting Vomiting Disease Resolve d 0 6-03 00:00: 00 2024-09-18 00:00:00 2024-09-18 15:46:24 [facility] Obesity (BMI 30-39.9) Obesity (BMI 30-39.9) Disease Resolve d 0 6-03 00:00: 00 2024-09-18 00:00:00 2024-09-18 15:46:29 [facility] Sexually active child Sexually active child Disease Resolve d 2018-10 0-08 00:00: 00 2024-09-18 00:00:00 2024-09-18 15:46:18 [facility] Depo-Prove ra contracept dash status Depo-Prove ra contracept dash status Disease Resolve d 1-10 00:00: 00 2024-09-18 00:00:00 2024-09-18 15:46:26 [facility] Screening examinatio n for STD (sexually transmitte d disease) Screening examinatio n for STD (sexually transmitte d disease) Disease Resolve d 2017-10 0-10 00:00: 00 2024-09-18 00:00:00 2024-09-18 15:46:23 [facility] Over weight Over weight Disease Resolve d 2017-10 0-10 00:00: 00 2024-09-18 00:00:00 2024-09-18 15:46:22 [facility] control control Disease Resolve d 9-26 00:00: 00 2024-09-18 00:00:00 2024-09-18 15:46:15 [facility] Allergies, Adverse Reactions, Alerts Allergy Name Allergy Type Status Severity Reaction(s) Onset Date Inactive Date Treating Clinician Comments Source NO KNOWN ALLERGIE S Drug Class Active [facility] Social History Social Habit Start Date Stop Date Quantity Comments Source ASSERTION 2024-08-20 00:00:00 [facility] History SDOH Alcohol Comment [place] [facility] Gender [facility] SDOH Alcohol Std Drinks [facility] History SDOH Alcohol Binge [facility] Alcoholic beverage intake 2024-10-24 00:00:00 2024-10-24 00:00:00 0 /d [facility] Tobacco use and exposure 2024-10-16 00:00:00 2024-10-16 00:00:00 Smokeless tobacco non-user [facility] History of Social function 2024-09-18 00:00:00 2024-09-18 00:00:00 [facility] Exposure to SARS-CoV-2 (event) 2023-02-13 00:00:00 2023-02-23 17:41:00 Not sure [facility] Alcohol intake 2021-10-18 00:00:00 2021-10-18 00:00:00 0 /d [facility] Education 2021-03-11 00:00:00 2021-03-11 00:00:00 13 [facility] History SDOH Alcohol Frequency 2019-07-16 00:00:00 2019-07-16 00:00:00 1 [facility] Sex assigned at 2002 00:00:00 2000 00:00:00 [facility] Smoking Status Start Date Stop Date Source Never smoked tobacco [facility] Medications Ordered Medication Name Filled Medication Name Start Date Stop Date Current Medication? Ordering Clinician Indication Dosage Frequency Signature (SIG) Comments Components Source clindamycin 300 mg capsule 10-30 00:00: 00 11-07 05:59 :00 Yes [id number] 300mg Take 1 capsule by mouth in the morning and 1 capsule in the evening. Do all this for 7 days. [facility] metroNIDAZO LE 500 mg tablet 10-28 00:00: 00 10-30 00:00 :00 No [id number] 500mg Take 1 tablet by mouth every 12 (twelve) hours for 7 days. [facility] cyclobenzap rine 5 mg tablet 10-14 00:00: 00 Yes [id number] 5mg Take 1 tablet by mouth in the morning and 1 tablet at noon and 1 tablet in the evening. [facility] PNV 67-iron ps-folate no.1-dha (VITAFOL ULTRA) 29 mg iron- 1 mg-200 mg Cap 2023-10 00:00: 00 Yes [id number] 1{each} Take 1 Each by mouth in the morning. [facility] proMETHazin e 25 mg tablet 2023-10 00:00: 00 Yes [id number] 25mg Take 1 tablet by mouth every 6 (six) hours as needed for Nausea and Vomiting (N/V). [facility] maalox:diph enhydrAMINE :lidocaine 2 % viscous 1:1:1 (FIRST-MOUT HWASH BLM) oral suspension 15 mL 05-23 21:00: 00 05-23 22:18 :00 No 15mL 15 mL, Oral, ONCE, 1 dose, On Mon05/23/23 at 1600, Routine [facility] pantoprazol e (PROTONIX) injection 40 mg 05-23 21:00: 00 05-23 22:17 :00 No 40mg 40 mg, Slow IV Push, ONCE, 1 dose, On Mon05/23/23 at 1600 [facility] ondansetron (ZOFRAN (PF)) injection 4 mg 05-23 21:00: 00 05-23 22:17 :00 No 4mg 4 mg, Slow IV Push, ONCE, 1 dose, On Mon05/23/23 at 1600, LEOLA [facility] ondansetron 4 mg disintegrat ing tablet 05-23 00:00: 00 09-18 00:00 :00 No [id number] 4mg Take 1 tablet by mouth every 8 (eight) hours as needed for Nausea and Vomiting (N/V). [facility] famotidine (PEPCID) 20 mg tablet 05-23 00:00: 00 06-23 04:59 :00 No [id number] 20mg Take 1 tablet by mouth in the morning and 1 tablet in the evening. Do all this for 30 days. [facility] predniSONE (DELTASONE) tablet 10 mg 02-24 00:30: 00 02-24 00:39 :00 No 10mg 10 mg, Oral, ONCE, 1 dose, On Elizabeth 02/23/23 at 1930, [facility] amoxicillin -clavulanat e (AUGMENTIN) 875-125 mg per tablet 1 tablet 02-24 00:28: 00 02-24 00:38 :00 No 1{tbl} 1 tablet, Oral, ONCE, 1 dose, On Elizabeth 02/23/23 at 1930, LEOLA
Re ason for Anti-Infec tive: Documented Infection< br>Documen candido Infection Site: HEENT
D uration of Therapy: Other (see Comments) [facility] ketorolac (TORADOL) injection 30 mg 02-23 23:09: 00 02-23 23:23 :00 No 30mg 30 mg, Intramuscu lar, ONCE, 1 dose, On Elizabeth 02/23/23 at 1815, [facility] amoxicillin -clavulanat e 875-125 mg per tablet 02-23 00:00: 00 09-18 00:00 :00 No [id number] 1{tbl} Take 1 tablet by mouth every 12 (twelve) hours. [facility] predniSONE 10 mg tablet 02-23 00:00: 00 02-27 04:59 :00 No [id number] 30mg Take 3 tablets by mouth in the morning for 3 days. [facility] ibuprofen (IBU) tablet 600 mg 10-19 05:45: 00 10-19 04:40 :00 No 600mg 600 mg, Oral, ONCE, 1 dose, On Mon10/18/21 at 2345, LEOLA [facility] HYDROcodone -acetaminop hen (NORCO) 10-325 mg tablet 1 tablet 8-14 13:15: 00 05-22 12:30 :00 No 1{tbl} 1 tablet, Oral, ONCE, 1 dose, 05/22/21 at 0815, Routine [facility] ibuprofen 800 mg tablet 05-22 00:00: 00 02-23 00:00 :00 No [id number] 800mg Take 1 tablet by mouth every 8 (eight) hours as needed for Pain (scale 4-6) or Temp > 38.5 C. [facility] cefTRIAXone (ROCEPHIN) 1,000 mg in NaCl 0.9% (NS) 50 mL MINI-BAG 03-12 16:00: 00 03-12 16:18 :00 No 1000mg 1,000 mg, IV Piggyback, ONCE, 1 dose, 03/12/21 at 1100, 50 mL
Reas on for Anti-Infec tive: Empiric Therapy for Suspected Infection< br>Empiric Therapy Site: Urine
D uration of therapy: 72 hours [facility] KCL (KLOR-CON M20) tablet 40 mEq 03-12 12:45: 00 03-12 13:07 :00 No 40meq 40 mEq, Oral, ONCE, 1 dose, 03/12/21 at 0745, Routine [facility] morpHINE injection 4 mg 03-12 07:16: 17 Yes 4mg 4 mg, Slow IV Push, Q4HPRN, Starting 03/12/21 at 0216, Until Discontinu ed, Routine, Pain (scale 7-10) [facility] pantoprazol e (PROTONIX) 40 mg in NaCl 0.9% (NS) 100 mL MINI-BAG 03-12 00:15: 00 Yes 40mg 40 mg, IV Piggyback, Q24H, First dose on Elizabeth 03/11/21 at 1915, Until Discontinu ed, 100 mL [facility] ondansetron 4 mg tablet 03-12 00:00: 00 03-23 04:59 :00 No [id number] 4mg Take 1 tablet by mouth every 8 (eight) hours for 10 days. [facility] cephALEXin 500 mg capsule 03-12 00:00: 00 03-16 04:59 :00 No [id number] 500mg Take 1 capsule by mouth 2 (two) times daily for 3 days. [facility] enoxaparin (LOVENOX) injection 30 mg 03-11 22:00: 00 Yes 30mg 30 mg, Subcutaneo us, DAILY, First dose on Elizabeth 03/11/21 at 1700, Until Discontinu ed, Routine [facility] D5W-LR IV infusion 1,000 mL 03-11 21:45: 00 Yes 1000mL at 125 mL/hr, IV Infusion, CONTINUOUS , Starting Elizabeth 03/11/21 at 1645, Until Discontinu ed, Routine [facility] morpHINE injection 4 mg 03-11 21:15: 00 03-11 20:32 :00 No 4mg 4 mg, Slow IV Push, ONCE, 1 dose, Elizabeth 03/11/21 at 1615, STAT [facility] ondansetron (ZOFRAN (PF)) injection 4 mg 03-11 20:38: 54 Yes 4mg 4 mg, Slow IV Push, Q6HPRN, Starting Elizabeth 03/11/21 at 1538, Until Discontinu ed, Routine, Nausea and Vomiting (N/V) [facility] acetaminoph en-codeine (TYLENOL #3) 300-30 mg tablet 1 tablet 03-11 20:38: 49 03-13 20:37 :49 No 1{tbl} 1 tablet, Oral, Q6HPRN, Starting Elizabeth 03/11/21 at 1538, Until 03/13/21 at 1537, Routine, Pain (scale 4-6) [facility] acetaminoph en (TYLENOL) tablet 650 mg 03-11 20:38: 42 Yes 650mg 650 mg, Oral, Q6HPRN, Starting Elizabeth 03/11/21 at 1538, Until Discontinu ed, Routine, Pain (scale 1-3) [facility] cefTRIAXone (ROCEPHIN) 1,000 mg in NaCl 0.9% (NS) 50 mL MINI-BAG 03-11 18:00: 00 03-11 17:41 :00 No 1000mg 1,000 mg, IV Piggyback, ONCE, 1 dose, Elizabeth 03/11/21 at 1300, 50 mL
Reas on for Anti-Infec tive: Empiric Therapy for Suspected Infection< br>Empiric Therapy Site: Abdominal< br>Duratio n of therapy: 72 hours [facility] iopamidol (ISOVUE 370-500 mL) injection 120 mL 03-11 17:00: 00 03-11 17:00 :00 No [id number] 120mL 120 mL, Intravenou s, ONCE, 1 dose, Elizabeth 03/11/21 at 1200, Routine [facility] morpHINE injection 4 mg 03-11 16:45: 00 03-11 15:43 :00 No 4mg 4 mg, Slow IV Push, ONCE, 1 dose, Elizabeth 03/11/21 at 1145, STAT [facility] ondansetron (ZOFRAN (PF)) injection 4 mg 03-11 16:30: 00 03-11 15:41 :00 No 4mg 4 mg, Slow IV Push, ONCE, 1 dose, Elizabeth 03/11/21 at 1130, LEOLA [facility] NaCl 0.9% (NS) bolus infusion 1,000 mL 03-11 16:30: 00 03-11 19:19 :00 No 1000mL at 999 mL/hr, 1,000 mL, IV Infusion, ONCE, 1 dose, Elizabeth 03/11/21 at 1130, STAT [facility] sodium chloride (NS) injection 5 mL 03-11 14:57: 42 Yes 5mL 5 mL, Intravenou s, PRN, Starting Elizabeth 03/11/21 at 0957, Until Discontinu ed, Routine, IV line flushing [facility] codeine-gua ifenesin (ROBITUSSIN AC) 10-100 mg/5 mL solution 10 mL 03-06 05:00: 00 03-06 04:26 :00 No 10mL 10 mL, Oral, ONCE, 1 dose, 03/06/21 at 0000, LEOLA [facility] dexamethaso ne (DECADRON PHOSPHATE) injection 10 mg 03-06 05:00: 00 03-06 04:19 :00 No 10mg 10 mg, Intramuscu lar, ONCE, 1 dose, 03/06/21 at 0000, STAT [facility] methylPREDN ISolone (MEDROL, TILA,) 4 mg tablets 03-06 00:00: 00 Yes [id number] Take by mouth SEE-INSTRU CTIONS. follow package directions [facility] azithromyci n 250 mg tablet 03-06 00:00: 00 Yes [id number] 250mg Take 1 tablet by mouth daily. Take 500 mg day 1, then 250 mg days 2 to 5. [facility] albuterol 90 mcg/actuati on inhaler 03-06 00:00: 00 05-22 00:00 :00 No [id number] 2{puff} Inhale 2 Puffs every 4 (four) hours as needed for Wheezing or Shortness of Breath. [facility] codeine-gua ifenesin 10-100 mg/5 mL solution 03-06 00:00: 00 03-14 04:59 :00 No [id number] 10mL Take 10 mL by mouth every 6 (six) hours as needed for Cough for up to 7 days. Indication s: acute pain [facility] benzonatate 100 mg capsule 02-24 00:00: 00 03-12 00:00 :00 No [id number] 100mg Take 1 capsule by mouth 3 (three) times daily as needed for Cough. [facility] predniSONE 20 mg tablet 02-24 00:00: 00 03-01 04:59 :00 No [id number] 20mg Take 1 tablet by mouth 2 (two) times daily for 4 days. [facility] medroxyPROG ESTERone (DEPO-PROVE RA) injection 150 mg 2018-10 15:00: 06-30 14:59 :00 No [id number] 150mg [facility] traMADOL (ULTRAM) 50 mg tablet 16 00:00: 00 03-12 00:00 :00 No 50mg Take 1 tablet by mouth every 6 (six) hours as needed for Pain (scale 4-6). [facility] Immunizations Ordered Immunization Name Filled Immunization Name Date Status Comments Source Flu Injectable MDCK Pres-Free (FLUCELVAX) 2024-09-18 00:00:00 Completed [facility] TDAP (ADACEL) VACCINE 2021-10-19 00:00:00 Completed [facility] Meningococcal Polysaccharide (groups A, C, Y and W-135) conjugate vaccine (MCV4P) 2021-10-19 00:00:00 Completed [facility] HPV9 2021-10-19 00:00:00 Completed [facility] DTAP 2021-10-19 00:00:00 Completed [facility] HIB 3 Dose Schedule 2021-10-19 00:00:00 Completed [facility] HEPATITIS A 2021-10-19 00:00:00 Completed [facility] Hep B, Adol or Pedi Dosage 2021-10-19 00:00:00 Completed [facility] HPV 2021-10-19 00:00:00 Completed [facility] MMR 2021-10-19 00:00:00 Completed [facility] Pneumococcal 13 Conjugate, PCV13 (Prevnar 13) 2021-10-19 00:00:00 Completed [facility] Polio (IPV/OPV) 2021-10-19 00:00:00 Completed [facility] Proquad (MMR/VARICELLA) 2021-10-19 00:00:00 Completed [facility] Varicella (varivax)(chicken pox) 2021-10-19 00:00:00 Completed [facility] TDAP (ADACEL) VACCINE 2021-10-19 00:00:00 Completed [facility] Meningococcal Polysaccharide (groups A, C, Y and W-135) conjugate vaccine (MCV4P) 2021-10-19 00:00:00 Completed [facility] HPV9 2021-10-19 00:00:00 Completed [facility] DTAP 2021-10-19 00:00:00 Completed [facility] HIB 3 Dose Schedule 2021-10-19 00:00:00 Completed [facility] HEPATITIS A 2021-10-19 00:00:00 Completed [facility] Hep B, Adol or Pedi Dosage 2021-10-19 00:00:00 Completed [facility] HPV 2021-10-19 00:00:00 Completed [facility] MMR 2021-10-19 00:00:00 Completed [facility] Pneumococcal 13 Conjugate, PCV13 (Prevnar 13) 2021-10-19 00:00:00 Completed [facility] Polio (IPV/OPV) 2021-10-19 00:00:00 Completed [facility] Proquad (MMR/VARICELLA) 2021-10-19 00:00:00 Completed [facility] Varicella (varivax)(chicken pox) 2021-10-19 00:00:00 Completed [facility] HPV 2018-10-18 00:00:00 Completed [facility] HPV9 2018-10-18 00:00:00 Completed [facility] HPV 2018-10-18 00:00:00 Completed [facility] HPV9 2018-10-18 00:00:00 Completed [facility] HPV 2018-10-18 00:00:00 Completed [facility] HPV9 2018-10-18 00:00:00 Completed [facility] HPV 2018-10-18 00:00:00 Completed [facility] HPV9 2018-10-18 00:00:00 Completed [facility] HPV 2018-10-18 00:00:00 Completed [facility] HPV9 2018-10-18 00:00:00 Completed [facility] HPV 2018-10-18 00:00:00 Completed [facility] HPV9 2018-10-18 00:00:00 Completed [facility] HPV 2018-10-18 00:00:00 Completed [facility] HPV9 2018-10-18 00:00:00 Completed [facility] HPV 2018-10-18 00:00:00 Completed [facility] HPV9 2018-10-18 00:00:00 Completed [facility] HPV 2018-10-18 00:00:00 Completed [facility] HPV9 2018-10-18 00:00:00 Completed [facility] HPV 2018-10-18 00:00:00 Completed [facility] HPV9 2018-10-18 00:00:00 Completed [facility] HPV 2018-10-18 00:00:00 Completed HPV9 2018-10-18 00:00:00 Completed [facility] HPV 2018-07-18 00:00:00 Completed [facility] HPV9 2018-07-18 00:00:00 Completed [facility] HPV 2018-07-18 00:00:00 Completed [facility] HPV9 2018-07-18 00:00:00 Completed [facility] HPV 2018-07-18 00:00:00 Completed [facility] HPV9 2018-07-18 00:00:00 Completed [facility] HPV 2018-07-18 00:00:00 Completed [facility] HPV9 2018-07-18 00:00:00 Completed [facility] HPV 2018-07-18 00:00:00 Completed [facility] HPV9 2018-07-18 00:00:00 Completed [facility] HPV 2018-07-18 00:00:00 Completed [facility] HPV9 2018-07-18 00:00:00 Completed [facility] HPV 2018-07-18 00:00:00 Completed [facility] HPV9 2018-07-18 00:00:00 Completed [facility] HPV 2018-07-18 00:00:00 Completed [facility] HPV9 2018-07-18 00:00:00 Completed [facility] HPV 2018-07-18 00:00:00 Completed [facility] HPV9 2018-07-18 00:00:00 Completed [facility] HPV 2018-07-18 00:00:00 Completed [facility] HPV9 2018-07-18 00:00:00 Completed [facility] HPV 2018-07-18 00:00:00 Completed HPV9 2018-07-18 00:00:00 Completed [facility] Influenza, seasonal, inj Influenza, seasonal, inj 2017-11-21 00:00:00 Completed [facility] HPV 2015-05-22 00:00:00 Completed [facility] TDAP (ADACEL) VACCINE 2015-05-22 00:00:00 Completed [facility] HPV9 2015-05-22 00:00:00 Completed [facility] Meningococcal Polysaccharide (groups A, C, Y and W-135) conjugate vaccine (MCV4P) 2015-05-22 00:00:00 Completed [facility] HPV 2015-05-22 00:00:00 Completed [facility] TDAP (ADACEL) VACCINE 2015-05-22 00:00:00 Completed [facility] HPV9 2015-05-22 00:00:00 Completed [facility] Meningococcal Polysaccharide (groups A, C, Y and W-135) conjugate vaccine (MCV4P) 2015-05-22 00:00:00 Completed [facility] HPV 2015-05-22 00:00:00 Completed [facility] TDAP (ADACEL) VACCINE 2015-05-22 00:00:00 Completed [facility] HPV9 2015-05-22 00:00:00 Completed [facility] Meningococcal Polysaccharide (groups A, C, Y and W-135) conjugate vaccine (MCV4P) 2015-05-22 00:00:00 Completed [facility] HPV 2015-05-22 00:00:00 Completed [facility] TDAP (ADACEL) VACCINE 2015-05-22 00:00:00 Completed [facility] HPV9 2015-05-22 00:00:00 Completed [facility] Meningococcal Polysaccharide (groups A, C, Y and W-135) conjugate vaccine (MCV4P) 2015-05-22 00:00:00 Completed [facility] HPV 2015-05-22 00:00:00 Completed [facility] TDAP (ADACEL) VACCINE 2015-05-22 00:00:00 Completed [facility] HPV9 2015-05-22 00:00:00 Completed [facility] Meningococcal Polysaccharide (groups A, C, Y and W-135) conjugate vaccine (MCV4P) 2015-05-22 00:00:00 Completed [facility] HPV 2015-05-22 00:00:00 Completed [facility] TDAP (ADACEL) VACCINE 2015-05-22 00:00:00 Completed [facility] HPV9 2015-05-22 00:00:00 Completed [facility] Meningococcal Polysaccharide (groups A, C, Y and W-135) conjugate vaccine (MCV4P) 2015-05-22 00:00:00 Completed [facility] HPV 2015-05-22 00:00:00 Completed [facility] TDAP (ADACEL) VACCINE 2015-05-22 00:00:00 Completed [facility] HPV9 2015-05-22 00:00:00 Completed [facility] Meningococcal Polysaccharide (groups A, C, Y and W-135) conjugate vaccine (MCV4P) 2015-05-22 00:00:00 Completed [facility] HPV 2015-05-22 00:00:00 Completed [facility] TDAP (ADACEL) VACCINE 2015-05-22 00:00:00 Completed [facility] HPV9 2015-05-22 00:00:00 Completed [facility] Meningococcal Polysaccharide (groups A, C, Y and W-135) conjugate vaccine (MCV4P) 2015-05-22 00:00:00 Completed [facility] HPV 2015-05-22 00:00:00 Completed [facility] TDAP (ADACEL) VACCINE 2015-05-22 00:00:00 Completed [facility] HPV9 2015-05-22 00:00:00 Completed [facility] Meningococcal Polysaccharide (groups A, C, Y and W-135) conjugate vaccine (MCV4P) 2015-05-22 00:00:00 Completed [facility] HPV 2015-05-22 00:00:00 Completed [facility] TDAP (ADACEL) VACCINE 2015-05-22 00:00:00 Completed [facility] HPV9 2015-05-22 00:00:00 Completed Meningococcal Polysaccharide (groups A, C, Y and W-135) conjugate vaccine (MCV4P) 2015-05-22 00:00:00 Completed HPV 2015-05-22 00:00:00 Completed TDAP (ADACEL) VACCINE 2015-05-22 00:00:00 Completed [facility] HPV9 2015-05-22 00:00:00 Completed [facility] Meningococcal Polysaccharide (groups A, C, Y and W-135) conjugate vaccine (MCV4P) 2015-05-22 00:00:00 Completed [facility] DTAP 2007-05-08 00:00:00 Completed [facility] HEPATITIS A 2007-05-08 00:00:00 Completed [facility] Polio (IPV/OPV) 2007-05-08 00:00:00 Completed [facility] Proquad (MMR/VARICELLA) 2007-05-08 00:00:00 Completed [facility] DTAP 2007-05-08 00:00:00 Completed [facility] HEPATITIS A 2007-05-08 00:00:00 Completed [facility] Polio (IPV/OPV) 2007-05-08 00:00:00 Completed [facility] Proquad (MMR/VARICELLA) 2007-05-08 00:00:00 Completed [facility] DTAP 2007-05-08 00:00:00 Completed [facility] HEPATITIS A 2007-05-08 00:00:00 Completed [facility] Polio (IPV/OPV) 2007-05-08 00:00:00 Completed [facility] Proquad (MMR/VARICELLA) 2007-05-08 00:00:00 Completed [facility] DTAP 2007-05-08 00:00:00 Completed [facility] HEPATITIS A 2007-05-08 00:00:00 Completed [facility] Polio (IPV/OPV) 2007-05-08 00:00:00 Completed [facility] Proquad (MMR/VARICELLA) 2007-05-08 00:00:00 Completed [facility] DTAP 2007-05-08 00:00:00 Completed [facility] HEPATITIS A 2007-05-08 00:00:00 Completed [facility] Polio (IPV/OPV) 2007-05-08 00:00:00 Completed [facility] Proquad (MMR/VARICELLA) 2007-05-08 00:00:00 Completed [facility] DTAP 2007-05-08 00:00:00 Completed [facility] HEPATITIS A 2007-05-08 00:00:00 Completed [facility] Polio (IPV/OPV) 2007-05-08 00:00:00 Completed [facility] Proquad (MMR/VARICELLA) 2007-05-08 00:00:00 Completed [facility] DTAP 2007-05-08 00:00:00 Completed [facility] HEPATITIS A 2007-05-08 00:00:00 Completed [facility] Polio (IPV/OPV) 2007-05-08 00:00:00 Completed [facility] Proquad (MMR/VARICELLA) 2007-05-08 00:00:00 Completed [facility] DTAP 2007-05-08 00:00:00 Completed [facility] HEPATITIS A 2007-05-08 00:00:00 Completed [facility] Polio (IPV/OPV) 2007-05-08 00:00:00 Completed [facility] Proquad (MMR/VARICELLA) 2007-05-08 00:00:00 Completed [facility] DTAP 2007-05-08 00:00:00 Completed [facility] HEPATITIS A 2007-05-08 00:00:00 Completed [facility] Polio (IPV/OPV) 2007-05-08 00:00:00 Completed [facility] Proquad (MMR/VARICELLA) 2007-05-08 00:00:00 Completed [facility] DTAP 2007-05-08 00:00:00 Completed [facility] HEPATITIS A 2007-05-08 00:00:00 Completed [facility] Polio (IPV/OPV) 2007-05-08 00:00:00 Completed [facility] Proquad (MMR/VARICELLA) 2007-05-08 00:00:00 Completed [facility] DTAP 2007-05-08 00:00:00 Completed HEPATITIS A 2007-05-08 00:00:00 Completed Polio (IPV/OPV) 2007-05-08 00:00:00 Completed Proquad (MMR/VARICELLA) 2007-05-08 00:00:00 Completed DTAP 2006-02-09 00:00:00 Completed [facility] HEPATITIS A 2006-02-09 00:00:00 Completed [facility] Pneumococcal 13 Conjugate, PCV13 (Prevnar 13) 2006-02-09 00:00:00 Completed [facility] DTAP 2006-02-09 00:00:00 Completed [facility] HEPATITIS A 2006-02-09 00:00:00 Completed [facility] Pneumococcal 13 Conjugate, PCV13 (Prevnar 13) 2006-02-09 00:00:00 Completed [facility] DTAP 2006-02-09 00:00:00 Completed [facility] HEPATITIS A 2006-02-09 00:00:00 Completed [facility] Pneumococcal 13 Conjugate, PCV13 (Prevnar 13) 2006-02-09 00:00:00 Completed [facility] DTAP 2006-02-09 00:00:00 Completed [facility] HEPATITIS A 2006-02-09 00:00:00 Completed [facility] Pneumococcal 13 Conjugate, PCV13 (Prevnar 13) 2006-02-09 00:00:00 Completed [facility] DTAP 2006-02-09 00:00:00 Completed [facility] HEPATITIS A 2006-02-09 00:00:00 Completed [facility] Pneumococcal 13 Conjugate, PCV13 (Prevnar 13) 2006-02-09 00:00:00 Completed [facility] DTAP 2006-02-09 00:00:00 Completed [facility] HEPATITIS A 2006-02-09 00:00:00 Completed [facility] Pneumococcal 13 Conjugate, PCV13 (Prevnar 13) 2006-02-09 00:00:00 Completed [facility] DTAP 2006-02-09 00:00:00 Completed [facility] HEPATITIS A 2006-02-09 00:00:00 Completed [facility] Pneumococcal 13 Conjugate, PCV13 (Prevnar 13) 2006-02-09 00:00:00 Completed [facility] DTAP 2006-02-09 00:00:00 Completed [facility] HEPATITIS A 2006-02-09 00:00:00 Completed [facility] Pneumococcal 13 Conjugate, PCV13 (Prevnar 13) 2006-02-09 00:00:00 Completed [facility] DTAP 2006-02-09 00:00:00 Completed [facility] HEPATITIS A 2006-02-09 00:00:00 Completed [facility] Pneumococcal 13 Conjugate, PCV13 (Prevnar 13) 2006-02-09 00:00:00 Completed [facility] DTAP 2006-02-09 00:00:00 Completed [facility] HEPATITIS A 2006-02-09 00:00:00 Completed [facility] Pneumococcal 13 Conjugate, PCV13 (Prevnar 13) 2006-02-09 00:00:00 Completed [facility] DTAP 2006-02-09 00:00:00 Completed HEPATITIS A 2006-02-09 00:00:00 Completed Pneumococcal 13 Conjugate, PCV13 (Prevnar 13) 2006-02-09 00:00:00 Completed DTAP 2005-03-14 00:00:00 Completed [facility] Hep B, Adol or Pedi Dosage 2005-03-14 00:00:00 Completed [facility] DTAP 2005-03-14 00:00:00 Completed [facility] Hep B, Adol or Pedi Dosage 2005-03-14 00:00:00 Completed [facility] DTAP 2005-03-14 00:00:00 Completed [facility] Hep B, Adol or Pedi Dosage 2005-03-14 00:00:00 Completed [facility] DTAP 2005-03-14 00:00:00 Completed [facility] Hep B, Adol or Pedi Dosage 2005-03-14 00:00:00 Completed [facility] DTAP 2005-03-14 00:00:00 Completed [facility] Hep B, Adol or Pedi Dosage 2005-03-14 00:00:00 Completed [facility] DTAP 2005-03-14 00:00:00 Completed [facility] Hep B, Adol or Pedi Dosage 2005-03-14 00:00:00 Completed [facility] DTAP 2005-03-14 00:00:00 Completed [facility] Hep B, Adol or Pedi Dosage 2005-03-14 00:00:00 Completed [facility] DTAP 2005-03-14 00:00:00 Completed [facility] Hep B, Adol or Pedi Dosage 2005-03-14 00:00:00 Completed [facility] DTAP 2005-03-14 00:00:00 Completed [facility] Hep B, Adol or Pedi Dosage 2005-03-14 00:00:00 Completed [facility] DTAP 2005-03-14 00:00:00 Completed [facility] Hep B, Adol or Pedi Dosage 2005-03-14 00:00:00 Completed [facility] DTAP 2005-03-14 00:00:00 Completed Hep B, Adol or Pedi Dosage 2005-03-14 00:00:00 Completed DTAP 2004-08-04 00:00:00 Completed [facility] HIB 3 Dose Schedule 2004-08-04 00:00:00 Completed [facility] Polio (IPV/OPV) 2004-08-04 00:00:00 Completed [facility] DTAP 2004-08-04 00:00:00 Completed [facility] HIB 3 Dose Schedule 2004-08-04 00:00:00 Completed [facility] Polio (IPV/OPV) 2004-08-04 00:00:00 Completed [facility] DTAP 2004-08-04 00:00:00 Completed [facility] HIB 3 Dose Schedule 2004-08-04 00:00:00 Completed [facility] Polio (IPV/OPV) 2004-08-04 00:00:00 Completed [facility] DTAP 2004-08-04 00:00:00 Completed [facility] HIB 3 Dose Schedule 2004-08-04 00:00:00 Completed [facility] Polio (IPV/OPV) 2004-08-04 00:00:00 Completed [facility] DTAP 2004-08-04 00:00:00 Completed [facility] HIB 3 Dose Schedule 2004-08-04 00:00:00 Completed [facility] Polio (IPV/OPV) 2004-08-04 00:00:00 Completed [facility] DTAP 2004-08-04 00:00:00 Completed [facility] HIB 3 Dose Schedule 2004-08-04 00:00:00 Completed [facility] Polio (IPV/OPV) 2004-08-04 00:00:00 Completed [facility] DTAP 2004-08-04 00:00:00 Completed [facility] HIB 3 Dose Schedule 2004-08-04 00:00:00 Completed [facility] Polio (IPV/OPV) 2004-08-04 00:00:00 Completed [facility] DTAP 2004-08-04 00:00:00 Completed [facility] HIB 3 Dose Schedule 2004-08-04 00:00:00 Completed [facility] Polio (IPV/OPV) 2004-08-04 00:00:00 Completed [facility] DTAP 2004-08-04 00:00:00 Completed [facility] HIB 3 Dose Schedule 2004-08-04 00:00:00 Completed [facility] Polio (IPV/OPV) 2004-08-04 00:00:00 Completed [facility] DTAP 2004-08-04 00:00:00 Completed [facility] HIB 3 Dose Schedule 2004-08-04 00:00:00 Completed [facility] Polio (IPV/OPV) 2004-08-04 00:00:00 Completed [facility] DTAP 2004-08-04 00:00:00 Completed HIB 3 Dose Schedule 2004-08-04 00:00:00 Completed Polio (IPV/OPV) 2004-08-04 00:00:00 Completed DTAP 2003-11-20 00:00:00 Completed [facility] HIB 3 Dose Schedule 2003-11-20 00:00:00 Completed [facility] Hep B, Adol or Pedi Dosage 2003-11-20 00:00:00 Completed [facility] MMR 2003-11-20 00:00:00 Completed [facility] Polio (IPV/OPV) 2003-11-20 00:00:00 Completed [facility] Varicella (varivax)(chicken pox) 2003-11-20 00:00:00 Completed [facility] DTAP 2003-11-20 00:00:00 Completed [facility] HIB 3 Dose Schedule 2003-11-20 00:00:00 Completed [facility] Hep B, Adol or Pedi Dosage 2003-11-20 00:00:00 Completed [facility] MMR 2003-11-20 00:00:00 Completed [facility] Polio (IPV/OPV) 2003-11-20 00:00:00 Completed [facility] Varicella (varivax)(chicken pox) 2003-11-20 00:00:00 Completed [facility] DTAP 2003-11-20 00:00:00 Completed [facility] HIB 3 Dose Schedule 2003-11-20 00:00:00 Completed [facility] Hep B, Adol or Pedi Dosage 2003-11-20 00:00:00 Completed [facility] MMR 2003-11-20 00:00:00 Completed [facility] Polio (IPV/OPV) 2003-11-20 00:00:00 Completed [facility] Varicella (varivax)(chicken pox) 2003-11-20 00:00:00 Completed [facility] DTAP 2003-11-20 00:00:00 Completed [facility] HIB 3 Dose Schedule 2003-11-20 00:00:00 Completed [facility] Hep B, Adol or Pedi Dosage 2003-11-20 00:00:00 Completed [facility] MMR 2003-11-20 00:00:00 Completed [facility] Polio (IPV/OPV) 2003-11-20 00:00:00 Completed [facility] Varicella (varivax)(chicken pox) 2003-11-20 00:00:00 Completed [facility] DTAP 2003-11-20 00:00:00 Completed [facility] HIB 3 Dose Schedule 2003-11-20 00:00:00 Completed [facility] Hep B, Adol or Pedi Dosage 2003-11-20 00:00:00 Completed [facility] MMR 2003-11-20 00:00:00 Completed [facility] Polio (IPV/OPV) 2003-11-20 00:00:00 Completed [facility] Varicella (varivax)(chicken pox) 2003-11-20 00:00:00 Completed [facility] DTAP 2003-11-20 00:00:00 Completed [facility] HIB 3 Dose Schedule 2003-11-20 00:00:00 Completed [facility] Hep B, Adol or Pedi Dosage 2003-11-20 00:00:00 Completed [facility] MMR 2003-11-20 00:00:00 Completed [facility] Polio (IPV/OPV) 2003-11-20 00:00:00 Completed [facility] Varicella (varivax)(chicken pox) 2003-11-20 00:00:00 Completed [facility] DTAP 2003-11-20 00:00:00 Completed [facility] HIB 3 Dose Schedule 2003-11-20 00:00:00 Completed [facility] Hep B, Adol or Pedi Dosage 2003-11-20 00:00:00 Completed [facility] MMR 2003-11-20 00:00:00 Completed [facility] Polio (IPV/OPV) 2003-11-20 00:00:00 Completed [facility] Varicella (varivax)(chicken pox) 2003-11-20 00:00:00 Completed [facility] DTAP 2003-11-20 00:00:00 Completed [facility] HIB 3 Dose Schedule 2003-11-20 00:00:00 Completed [facility] Hep B, Adol or Pedi Dosage 2003-11-20 00:00:00 Completed [facility] MMR 2003-11-20 00:00:00 Completed [facility] Polio (IPV/OPV) 2003-11-20 00:00:00 Completed [facility] Varicella (varivax)(chicken pox) 2003-11-20 00:00:00 Completed [facility] DTAP 2003-11-20 00:00:00 Completed [facility] HIB 3 Dose Schedule 2003-11-20 00:00:00 Completed [facility] Hep B, Adol or Pedi Dosage 2003-11-20 00:00:00 Completed [facility] MMR 2003-11-20 00:00:00 Completed [facility] Polio (IPV/OPV) 2003-11-20 00:00:00 Completed [facility] Varicella (varivax)(chicken pox) 2003-11-20 00:00:00 Completed [facility] DTAP 2003-11-20 00:00:00 Completed [facility] HIB 3 Dose Schedule 2003-11-20 00:00:00 Completed [facility] Hep B, Adol or Pedi Dosage 2003-11-20 00:00:00 Completed [facility] MMR 2003-11-20 00:00:00 Completed [facility] Polio (IPV/OPV) 2003-11-20 00:00:00 Completed [facility] Varicella (varivax)(chicken pox) 2003-11-20 00:00:00 Completed [facility] DTAP 2003-11-20 00:00:00 Completed [facility] HIB 3 Dose Schedule 2003-11-20 00:00:00 Completed Hep B, Adol or Pedi Dosage 2003-11-20 00:00:00 Completed MMR 2003-11-20 00:00:00 Completed Polio (IPV/OPV) 2003-11-20 00:00:00 Completed Varicella (varivax)(chicken pox) 2003-11-20 00:00:00 Completed Hep B, Adol or Pedi Dosage 2003-02-25 00:00:00 Completed [facility] Polio (IPV/OPV) 2003-02-25 00:00:00 Completed [facility] Hep B, Adol or Pedi Dosage 2003-02-25 00:00:00 Completed [facility] Polio (IPV/OPV) 2003-02-25 00:00:00 Completed [facility] Hep B, Adol or Pedi Dosage 2003-02-25 00:00:00 Completed [facility] Polio (IPV/OPV) 2003-02-25 00:00:00 Completed [facility] Hep B, Adol or Pedi Dosage 2003-02-25 00:00:00 Completed [facility] Polio (IPV/OPV) 2003-02-25 00:00:00 Completed [facility] Hep B, Adol or Pedi Dosage 2003-02-25 00:00:00 Completed [facility] Polio (IPV/OPV) 2003-02-25 00:00:00 Completed [facility] Hep B, Adol or Pedi Dosage 2003-02-25 00:00:00 Completed [facility] Polio (IPV/OPV) 2003-02-25 00:00:00 Completed [facility] Hep B, Adol or Pedi Dosage 2003-02-25 00:00:00 Completed [facility] Polio (IPV/OPV) 2003-02-25 00:00:00 Completed [facility] Hep B, Adol or Pedi Dosage 2003-02-25 00:00:00 Completed [facility] Polio (IPV/OPV) 2003-02-25 00:00:00 Completed [facility] Hep B, Adol or Pedi Dosage 2003-02-25 00:00:00 Completed [facility] Polio (IPV/OPV) 2003-02-25 00:00:00 Completed [facility] Hep B, Adol or Pedi Dosage 2003-02-25 00:00:00 Completed [facility] Polio (IPV/OPV) 2003-02-25 00:00:00 Completed [facility] Hep B, Adol or Pedi Dosage 2003-02-25 00:00:00 Completed Polio (IPV/OPV) 2003-02-25 00:00:00 Completed Hep B, Adol or Pedi Dosage 2002 00:00:00 Completed [facility] Hep B, Adol or Pedi Dosage 2002 00:00:00 Completed [facility] Hep B, Adol or Pedi Dosage 2002 00:00:00 Completed [facility] Hep B, Adol or Pedi Dosage 2002 00:00:00 Completed [facility] Hep B, Adol or Pedi Dosage 2002 00:00:00 Completed [facility] Hep B, Adol or Pedi Dosage 2002 00:00:00 Completed [facility] Hep B, Adol or Pedi Dosage 2002 00:00:00 Completed [facility] Hep B, Adol or Pedi Dosage 2002 00:00:00 Completed [facility] Hep B, Adol or Pedi Dosage 2002 00:00:00 Completed [facility] Hep B, Adol or Pedi Dosage 2002 00:00:00 Completed [facility] Hep B, Adol or Pedi Dosage 2002 00:00:00 Completed Vital Signs Vital Name Observation Time Observation Value Comments S ource Systolic blood pressure 2024-10-26 15:43:00 114 mm[Hg] [facility] Diastolic blood pressure 2024-10-26 15:43:00 82 mm[Hg] [facility] Heart rate 2024-10-26 15:43:00 87 /min [facility] Body temperature 2024-10-26 15:43:00 36.72 Senait [facility] Respiratory rate 2024-10-26 15:43:00 21 /min [facility] Body height 2024-10-26 15:43:00 162.6 cm [facility] Body weight 2024-10-26 15:43:00 104.781 kg [facility] BMI 2024-10-26 15:43:00 39.65 kg/m2 [facility] Oxygen saturation in Arterial blood by Pulse oximetry 2024-10-26 15:43:00 99 /min [facility] Systolic blood pressure 2024-10-24 21:19:00 127 mm[Hg] [facility] Diastolic blood pressure 2024-10-24 21:19:00 70 mm[Hg] [facility] Heart rate 2024-10-24 21:19:00 86 /min [facility] Body temperature 2024-10-24 21:19:00 36.17 Senait [facility] Respiratory rate 2024-10-24 21:19:00 16 /min [facility] Body height 2024-10-24 21:19:00 165.1 cm [facility] Body weight 2024-10-24 21:19:00 105.235 kg [facility] BMI 2024-10-24 21:19:00 38.61 kg/m2 [facility] Systolic blood pressure 2024-10-16 22:01:00 119 mm[Hg] [facility] Diastolic blood pressure 2024-10-16 22:01:00 70 mm[Hg] [facility] Heart rate 2024-10-16 22:01:00 83 /min [facility] Body temperature 2024-10-16 22:01:00 36.5 Senait [facility] Respiratory rate 2024-10-16 22:01:00 17 /min [facility] Body height 2024-10-16 22:01:00 165.1 cm [facility] Body weight 2024-10-16 22:01:00 107.548 kg [facility] BMI 2024-10-16 22:01:00 39.46 kg/m2 [facility] Systolic blood pressure 2024-10-14 21:00:00 114 mm[Hg] [facility] Diastolic blood pressure 2024-10-14 21:00:00 87 mm[Hg] [facility] Heart rate 2024-10-14 21:00:00 76 /[facility]24-10-14 21:00:00 37.22 Senait [facility] Respiratory rate 2024-10-14 21:00:00 18 /min [facility] Oxygen saturation in Arterial blood by Pulse oximetry 2024-10-14 21:00:00 97 /min [facility] Body height 2024-10-14 17:36:00 165.1 cm [facility] Body weight 2024-10-14 17:36:00 108.863 kg [facility] BMI 2024-10-14 17:36:00 39.94 kg/m2 [facility] Systolic blood pressure 2024-09-18 20:46:00 120 mm[Hg] [facility] Diastolic blood pressure 2024-09-18 20:46:00 71 mm[Hg] [facility] Heart rate 2024-09-18 20:46:00 86 /min [facility] 2024-09-18 20:46:00 37.33 Senait [facility] Respiratory rate 2024-09-18 20:46:00 18 /min [facility] Body height 2024-09-18 20:46:00 162.6 cm [facility] Body weight 2024-09-18 20:46:00 108.636 kg [facility] BMI 2024-09-18 20:46:00 41.11 kg/m2 [facility] Systolic blood pressure 2023-05-23 19:12:00 122 mm[Hg] [facility] Diastolic blood pressure 2023-05-23 19:12:00 98 mm[Hg] [facility] Heart rate 2023-05-23 19:12:00 68 /min [facility] Body temperature 2023-05-23 19:12:00 36.61 Senait [facility] Respiratory rate 2023-05-23 19:12:00 18 /min [facility] Body height 2023-05-23 19:12:00 162.6 cm [facility] Body weight 2023-05-23 19:12:00 95.255 kg [facility] BMI 2023-05-23 19:12:00 36.05 kg/m2 [facility] Oxygen saturation in Arterial blood by Pulse oximetry 2023-05-23 19:12:00 99 /min [facility] Systolic blood pressure 2023-02-24 00:41:00 112 mm[Hg] [facility] Diastolic blood pressure 2023-02-24 00:41:00 74 mm[Hg] [facility] Heart rate 2023-02-24 00:41:00 84 /min [facility] Body temperature 2023-02-24 00:41:00 36.94 Senait [facility] Respiratory rate 2023-02-24 00:41:00 20 /min [facility] Oxygen saturation in Arterial blood by Pulse oximetry 2023-02-24 00:41:00 98 /min [facility] Body height 2023-02-23 22:43:00 162.6 cm [facility] Body weight 2023-02-23 22:43:00 95.255 kg [facility] BMI 2023-02-23 22:43:00 36.05 kg/m2 [facility] Systolic blood pressure 2021-10-19 04:27:00 121 mm[Hg] [facility] Diastolic blood pressure 2021-10-19 04:27:00 79 mm[Hg] [facility] Heart rate 2021-10-19 04:27:00 107 /min [facility] Body temperature 2021-10-19 04:27:00 38.72 Senait [facility] Respiratory rate 2021-10-19 04:27:00 18 /min [facility] Body height 2021-10-19 04:27:00 160 cm [facility] Body weight 2021-10-19 04:27:00 90.719 kg [facility] BMI 2021-10-19 04:27:00 35.43 kg/m2 [facility] Body mass index (BMI) [Percentile] Per age and sex 2021-10-19 04:27:00 97.54 % [facility] Oxygen saturation in Arterial blood by Pulse oximetry 2021-10-19 04:27:00 99 /min [facility] Systolic blood pressure 2021-05-22 10:55:00 118 mm[Hg] [facility] Diastolic blood pressure 2021-05-22 10:55:00 70 mm[Hg] [facility] Heart rate 2021-05-22 10:55:00 105 /min [facility] Body temperature 2021-05-22 10:55:00 38.17 Senait [facility] Respiratory rate 2021-05-22 10:55:00 18 /min [facility] Body height 2021-05-22 10:55:00 162.6 cm [facility] Body weight 2021-05-22 10:55:00 97.523 kg [facility] BMI 2021-05-22 10:55:00 36.90 kg/m2 [facility] Oxygen saturation in Arterial blood by Pulse oximetry 2021-05-22 10:55:00 97 /min [facility] Systolic blood pressure 2021-03-12 12:22:00 102 mm[Hg] [facility] Diastolic blood pressure 2021-03-12 12:22:00 57 mm[Hg] [facility] Heart rate 2021-03-12 12:22:00 69 /min [facility] Body temperature 2021-03-12 12:22:00 37.06 [facility] Respiratory rate 2021-03-12 12:22:00 18 /min [facility] Oxygen saturation in Arterial blood by Pulse oximetry 2021-03-12 12:22:00 97 /min [facility] Body height 2021-03-11 20:55:00 165.1 cm [facility] Body weight 2021-03-11 20:55:00 105.461 kg [facility] BMI 2021-03-11 20:55:00 38.69 kg/m2 [facility] Systolic blood pressure 2021-03-06 05:21:03 135 mm[Hg] [facility] Diastolic blood pressure 2021-03-06 05:21:03 82 mm[Hg] [facility] Heart rate 2021-03-06 05:21:03 96 /min [facility] Body temperature 2021-03-06 05:21:03 37.22 [facility] Respiratory rate 2021-03-06 05:21:03 20 /min [facility] Oxygen saturation in Arterial blood by Pulse oximetry 2021-03-06 05:21:03 98 /min [facility] Body height 2021-03-06 03:22:00 165.1 cm [facility] Body weight 2021-03-06 03:22:00 90.719 kg [facility] BMI 2021-03-06 03:22:00 33.28 kg/m2 [facility] Heart rate 2021-02-25 02:31:00 108 /min [facility] Systolic blood pressure 2021-02-25 01:21:00 123 mm[Hg] [facility] Diastolic blood pressure 2021-02-25 01:21:00 82 mm[Hg] [facility] Body temperature 2021-02-25 01:21:00 37.61 [facility] Respiratory rate 2021-02-25 01:21:00 22 /min [facility] Body weight 2021-02-25 01:21:00 90.719 kg [facility] Oxygen saturation in Arterial blood by Pulse oximetry 2021-02-25 01:21:00 99 /min [facility] Systolic blood pressure 2019-10-22 15:39:00 113 mm[Hg] [facility] Diastolic blood pressure 2019-10-22 15:39:00 74 mm[Hg] [facility] Heart rate 2019-10-22 15:39:00 82 /min [facility] Body temperature 2019-10-22 15:39:00 36.83 Senait [facility] Respiratory rate 2019-10-22 15:39:00 16 /min [facility] Body height 2019-10-22 15:39:00 160 cm [facility] Body weight 2019-10-22 15:39:00 103.023 kg [facility] BMI 2019-10-22 15:39:00 40.23 kg/m2 [facility] Height Measured 2024-10-28 09:53:00 63.00 inches [facility] [place] Body Temperature 2024-10-28 09:53:00 97.50 degrees [facility] Heart Rate 2024-10-28 09:53:00 106.00 /min [facility] Respiratory Rate 2024-10-28 09:53:00 18.00 /min [facility] BP Systolic 2024-10-28 09:53:00 118 mm[Hg] [facility] BP Diastolic 2024-10-28 09:53:00 72 mm[Hg] [facility] Weight Measured 2024-10-28 09:53:00 231.00 pounds [facility] BP Systolic 2017-11-13 16:56:00 125 mm[Hg] [facility] BP Diastolic 2017-11-13 16:56:00 80 mm[Hg] Edmond phen F Buster Weight Measured 2017-11-13 16:56:00 185.60 pounds Marco Antonio F Buster Height Measured 2017-11-13 16:56:00 63.52 inches Marco Antonio F Buster Body Temperature 2017-11-13 16:56:00 98.80 degrees Marco Antonio F Buster Heart Rate 2017-11-13 16:56:00 87.00 /min Mary en F Buster Respiratory Rate 2017-11-13 16:56:00 18.00 /min Marco Antonio F Buster Procedures Procedure Date / Time Performed Performing Clinician Source POCT URINALYSIS 2024-10-26 16:04:00 [facility] 2024-10-24 21:27:00 Rachel Hanley [facility] POCT URINALYSIS 2024-10-16 00:00:00 Rachel Hanley [facility] US FIRST TRIMESTER LESS THAN 14 WEEKS WITH TRANSVAGINAL 2024-10-14 19:24:18 Singer Negin [facility] COMP. METABOLIC PANEL (07709) 2024-10-14 18:34:00 Negin Avalos [facility] TOTAL BETA HCG ASSAY 2024-10-14 18:34:00 Rehan Avalos [facility] CBC WITH DIFF 2024-10-14 18:34:00 Negin Avalos [facility] URINALYSIS 2024-10-14 18:31:00 Negin Avalos [facility] POCT TEST 2024-10-14 18:31:00 Maxwell Avalos [facility] CBC WITH DIFF 2024-09-18 22:18:00 Rachel Hanley [facility] GLYCOSYLATED HEMOGLOBIN (A1C) 2024-09-18 22:18:00 Rachel Hanley [facility] RUBELLA SCREEN IGG 2024-09-18 22:18:00 Lele Hanley [facility] VZV ANTIBODY SCREEN 2024-09-18 22:18:00 Ilay Hanley [facility] HEPATITIS B SURFACE ANTIGEN 2024-09-18 22:18:00 Rachel Hanley [facility] HCV ANTIBODY 2024-09-18 22:18:00 Rachel Hanley [facility] HB ABO GROUPING 2024-09-18 22:18:00 Rachel Hanley [facility] HIV 1/2 AG-AB WITH REFLEX 2024-09-18 22:18:00 Rachel Hanley [facility] PAP SMEAR-LIQUID BASED-CP 2024-09-18 22:18:00 Rachel Hanley [facility] SYPHILIS IGG/IGM 2024-09-18 22:18:00 Amos Hanley [facility] FLU VACC (), 6 MO-64 YRS, .5ML, IM, TIV (FLUCELVAX) 2024-09-18 20:54:43 Rachel Hanley [facility] POCT URINALYSIS W/O SPECIFIC GRAVITY 2024-09-18 20:38:00 Rachel Hanley [facility] POCT TEST 2024-09-18 20:37:00 Ilya Hanley [facility] POCT TEST 2023-05-23 22:15:00 Tamiko Reynaga [facility] LIPASE 2023-05-23 20:07[facility]00 [facility]. METABOLIC PANEL (68075) 2023-05-23 20:07:00 Jennifer Reynaga [facility] CBC WITH DIFF 2023-05-23 20:07:00 ReynagaJennifer velázquez [facility] 2023-[facility]-23 20:07:00 [facility] ASSIGNMENT OF BENEFITS 2023-05-23 19:45:58 Docto r Unassigned, [place] [facility] ASSIGNMENT OF BENEFITS 2023-02-23 23:29:30 Docto r Unassigned, [place] [facility] RAPID STREP SCREEN FOR GROUP A 2023-02-23 23:18:00 Thelma Garcia [facility] RAPID INFLUENZA A/B 2023-02-23 23:18:00 Jatinder Garcia [facility] COVID-19 (ID NOW RAPID TESTING) 2023-02-23 23:18:00 Thelma Garcia [facility] CONSENT/REFUSAL FOR DIAGNOSIS AND TREATMENT 2023-02-23 22:27:31 Doctor Unassigned, [place] [facility] RAPID INFLUENZA A/B 2021-10-19 04:38:00 Micha Vanessa [facility] NOTICE OF PRIVACY PRACTICES 2021-10-19 04:25:24 Doctor Unassigned, [place] [facility] CONSENT/REFUSAL FOR DIAGNOSIS AND TREATMENT 2021-10-19 04:25:07 Doctor Unassigned, [place] [facility] URINALYSIS 2021-05-22 11:31:00 Suzette Michele [facility] POCT TEST 2021-05-22 11:31:00 Suzette Michele [facility] COVID-19 (ID NOW RAPID TESTING) 2021-05-22 11:17:00 Suzette Michele [facility] CONSENT/REFUSAL FOR DIAGNOSIS AND TREATMENT 2021-05-22 10:19:37 Doctor Unassigned, [place] [facility] MAGNESIUM 2021-03-12 09:44:00 Anatoly Valdovinos [facility] BASIC METABOLIC PANEL (NA, K, CL, CO2, GLUCOSE, BUN, CREATININE, CA) 2021-03-12 09:44:00 Anatoly Valdovinos [facility] CBC WITH DIFF 2021-03-12 09:44:00 Anatoly Valdovinos [facility] COVID-19 (ID NOW RAPID TESTING) 2021-03-11 17:06:00 Solange Ford [facility] BLOOD CULTURE SCREEN 2021-03-11 17:05:00 Ashok Ford [facility] URINE CULTURE 2021-03-11 17:05:00 Solange Ford [facility] LACTIC ACID WHOLE BLOOD 2021-03-11 17:04:00 Do adriane Ford [facility] BLOOD CULTURE SCREEN 2021-03-11 16:35:00 Ashok Ford [facility] CT ABDOMEN PELVIS W CONTRAST 2021-03-11 15:56:47 Solange Ford [facility] LIPASE 2021-03-11 15:07:00 Solange Ford [facility] COMP. METABOLIC PANEL (46746) 2021-03-11 15:07:00 Solange Ford [facility] CBC WITH DIFF 2021-03-11 15:07:00 Solange Ford [facility] URINALYSIS 2021-03-11 15:07:00 Solange Ford [facility] POCT TEST 2021-03-11 15:06:00 Tatiana Ford [facility] NOTICE OF PRIVACY PRACTICES 2021-03-11 14:51:22 Doctor Unassigned, [place] [facility] CONSENT/REFUSAL FOR DIAGNOSIS AND TREATMENT 2021-03-11 14:50:52 Doctor Unassigned, [place] [facility] XR CHEST 2 VW 2021-03-06 04:04:44 Jennifer Reynaga [facility] NOTICE OF PRIVACY PRACTICES 2021-03-06 03:15:08 Doctor Unassigned, [place] [facility] CONSENT/REFUSAL FOR DIAGNOSIS AND TREATMENT 2021-03-06 03:14:52 Doctor Unassigned, [place] [facility] COVID-19 (ID NOW RAPID TESTING) 2021-02-25 01:56:00 Micha Vanessa [facility] NOTICE OF PRIVACY PRACTICES 2021-02-25 01:15:24 Doctor Unassigned, [place] [facility] CONSENT/REFUSAL FOR DIAGNOSIS AND TREATMENT 2021-02-25 01:10:32 Doctor Unassigned, [place] [facility] Encounters Start Date/Time End Date/Time Encounter Type Admission Type Attending [facility] Care Facility Care Department Encounter ID Source 2021-08-08 22:53:54 Emergency [facility] [id number] [facility] 2021-08-08 22:05:35 Emergency [facility] [id number] [facility] 2021-08-08 20:09:33 Emergency [facility] [id number] [facility] 2024-12-24 13:00:00 2024-12-24 13:00:00 Outpatient P [facility] [id number] [facility] 2024-10-30 00:00:00 2024-10-30 09:02:00 Case Management Ayala Han [facility] 1.2.840.114 350.1.13.10 4.2.7.2.686 [id number] [facility] 2024-10-29 00:00:00 2024-10-29 18:02:50 Abstract Rachel Hanley [facility] 1.840.114 350.1.13.10 4.2.7.2.686 [id number] [facility] 2024-10-29 00:00:00 2024-10-29 14:31:22 Nurse Triage Vicki Light Stacy [facility] 1.840.114 350.1.13.10 4.2.7.2.686 [id number] [facility] 2024-10-28 00:00:00 2024-10-28 16:57:38 Telephone Faiza Reyes [facility] 1.84.114 350.1.13.10 4.2.7.2.686 [id number] [facility] 2024-10-28 09:39:29 2024-10-28 09:39:29 Outpatient S[facility] [id number] Marco Antonio Goins 2024-10-28 00:00:00 2024-10-28 00:00:00 Outpatient Visit [facility] [id number] Marco Antonio Goins 2024-09-19 00:00:00 2024-10-26 18:21:55 Patient Secure Msg Rachel Hanley [facility] 1.840.114 350.1.13.10 4.2.7.2.686 [id number] 107 [id number] [facility] 2024-09-19 00:00:00 2024-10-26 18:21:49 Patient Secure Msg Doctor Unassigned, [place] Doctor Unassigned, [place] [facility] 1.840.114 350.1.13.10 4.2.7.2.686 [id number] [facility] 2024-10-26 09:20:00 2024-10-26 10:44:58 Outpatient R KATHERINE FAIZA [facility] [id number] [facility] 2024-10-26 09:20:00 2024-10-26 10:44:58 Urgent Care Amanda Reyeskishoreluis Unknown, Attending [facility] 1.840.114 350.1.13.10 4.2.7.2.686 [id number] [facility] 2024-10-25 14:30:00 2024-10-25 15:09:11 Outpatient R CHRISTINE CHAU, CHRISTINE VERA [facility] [id number] [facility] 2024-10-24 15:30:00 2024-10-24 16:16:26 Outpatient R AYALA HAN [facility] [id number] [facility] 2024-10-24 15:30:00 2024-10-24 16:16:26 Routine Visit Rachel Hanley Brenda A [facility] MATERNAL & [facility]ILD [facility] 1.840.114 350.1.13.10 4.2.7.2.686 [id number] [facility] 2024-10-24 00:00:00 2024-10-24 11:56:32 Telephone Rachel Hanley [facility] 1.840.114 350.1.13.10 4.2.7.2.686 [id number] [facility] 2024-10-16 16:00:00 2024-10-16 16:21:07 Outpatient R RACHEL HANLEY [facility] [id number] [facility] 2024-10-16 16:00:00 2024-10-16 16:21:07 Routine Visit Rachel Hanley [facility] 1.2.840.114 350.1.13.10 4.2.7.2.686 [id number] [facility] 2024-10-14 11:37:00 2024-10-14 15:05:00 Emergency NEGIN LINDER PHILLIP [facility] [id number] [facility] 2024-10-14 11:37:00 2024-10-14 15:05:00 Emergency Negin Avalos [facility] AT [facility] 1.2.840.114 350.1.13.10 4.2.7.2.686 [id number] [facility] 2024-09-19 00:00:00 2024-09-20 07:43:51 Telephone Rachel Hanley [facility] 1.20.114 350.1.13.10 4.2.7.2.686 [id number] 107 [id number] [facility] 2024-09-19 00:00:00 2024-09-20 07:36:32 Telephone Rachel Hanley [facility] 1.2.840.114 350.1.13.10 4.2.7.2.686 [id number] [facility] 2024-09-18 00:00:00 2024-09-19 06:55:10 Patient Secure Msg Rachel Hanley [facility] 1.2.840.114 350.1.13.10 4.2.7.2.686 [id number] [facility] 2024-09-18 14:30:00 2024-09-18 16:16:56 Outpatient R RACHEL HANLEY [facility] [id number] [facility] 2024-09-18 14:30:00 2024-09-18 16:16:56 Initial Visit Rachel Hanley Reyna [facility] MATERNAL & CHILD [facility]ALTH [facility] 1.0.114 350.1.13.10 4.2.7.2.686 [id number] [facility] 2023-05-23 14:13:00 2023-05-23 18:16:00 Emergency X TANK REYNAGAANNE [facility] [id number] [facility] 2023-05-23 14:13:00 2023-05-23 18:16:00 Emergency Jennifer Reynaga [facility] 1.0.114 350.1.13.10 4.2.7.2.686 [id number] [facility] 2023-02-23 17:44:00 2023-02-23 19:46:00 Emergency X THELMA GARCIA [facility] E[facility] [id number] [facility] 2023-02-23 17:44:00 2023-02-23 19:46:00 Emergency Thelma Garcia [facility] 1.0.114 350.1.13.10 4.2.7.2.686 [id number] [facility] 2021-10-20 00:00:00 2021-10-20 00:00:00 Patient Secure Msg Gissell Ornelas [facility] MATERNAL & [facility] 1..114 350.1.13.10 4.2.7.2.686 [id number] [facility] 2021-10-19 00:00:00 2021-10-19 00:00:00 Patient Secure Msg Doctor Unassigned, [place] [facility] 1.2.840.114 350.1.13.10 4.2.7.2.686 [id number] [facility] 2021-10-19 00:00:00 2021-10-19 00:00:00 Patient Secure Rachel Sanders [facility] MATERNAL & CHILD [facility]ALTH [facility] 1.2840.114 350.1.13.10 4.2.7.2.686 [id number] [facility] 2021-10-18 22:40:00 2021-10-18 23:11:00 Emergency X MICHA VANESSA [facility] ERT [id number] [facility] 2021-10-18 22:40:00 2021-10-18 23:11:00 Emergency Micha Vanessa [facility] 1.2840.114 350.1.13.10 4.2.7.2.686 [id number] [facility] 2021-05-22 05:58:00 2021-05-22 07:44:00 Emergency Suzette Michele [facility] 1.840.114 350.1.13.10 4.2.7.2.686 [id number] [facility] 2021-05-22 05:58:00 2021-05-22 07:44:00 Emergency X DORIANSUZETTE SANTOS [facility] ERT [id number] [facility] 2021-05-22 00:00:00 2021-05-22 00:00:00 Orders Only Doctor Unassigned, [place] [facility] 1.20.114 350.1.13.10 4.2.7.2.686 [id number] [facility] 2021-03-11 09:58:00 2021-03-12 13:25:00 Emergency Solange Ford Yaman [facility] 1.2840.114 350.1.13.10 4.2.7.2.686 [id number] [facility] 2021-03-05 22:26:00 2021-03-06 00:33:00 Emergency Jennifer Reynaga [facility] 1.2.840.114 350.1.13.10 4.2.7.2.686 [id number] [facility] 2021-02-24 20:25:00 2021-02-24 21:57:00 Emergency Micha Vanessa [facility] 1.2.840.114 350.1.13.10 4.2.7.2.686 [id number] [facility] 2019-10-22 09:07:40 2019-10-22 09:41:44 [facility] 1.2840.114 350.1.13.10 4.2.7.2.686 [id number] [facility] Results Test Description Test Time Test Comments Results Result Co mments Source [facility] [id number] 21:27:00* Test Item Value Reference Range Interpretation Comme nts POCT U SP GRAV (test code = 3255) . 1.005-1.025 POCT PH U (test code = 3254) . 5-8 POCT U LEUK EST (test code = 3263) . Negative - N egative POCT U NIT (test code = 3262) . Negative - Negati ve POCT U PROT (test code = 3259) trace Negative - Negat dash POCT U GLU (test code = 3256) neg Negative - Negati ve POCT U KETONE (test code = 3258) . Negative - Neg ative POCT U UROBILI (test code = 3260) .. 0.2-1 POCT U BILI (test code = 3261) . Negative - Negat dash POCT U BLD (test code = 3257) . Negative - Negati ve POCT U COLOR (test code = 3266) POCT U APPEAR (test code = 3267) [facility]IFIC [id number] 22:02:00* Test Item Value Reference Range Interpretation Comme nts POCT U SP GRAV (test code = 3255) . 1.005-1.025 POCT PH U (test code = 3254) . 5-8 POCT U LEUK EST (test code = 3263) . Negative - N egative POCT U NIT (test code = 3262) . Negative - Negati ve POCT U PROT (test code = 3259) 1+ Negative - Negat dash POCT U GLU (test code = 3256) normal Negative - Negati ve POCT U KETONE (test code = 3258) . Negative - Neg ative POCT U UROBILI (test code = 3260) . 0.2-1 POCT U BILI (test code = 3261) . Negative - Negat dash POCT U BLD (test code = 3257) . Negative - Negati ve POCT U COLOR (test code = 3266) . POCT U APPEAR (test code = 3267) . [facility] less than 14 weeks with [id number] 20:15:24EXAM: US FIRST TRIMESTER LESS THAN 14 WEEKS WITH TRANSVAGINAL HISTORY: 24 years-old Female r/o ectopic RLQ/Back pain. No previous US. LMP = 07/05/2024. Beta-hCG: A beta-hCG has not been collected at the time of dictation.mIU/mL. G/P: 1/0. TECHNIQUE: Survey transabdominal and transvaginal ultrasound imaging andcolor Doppler evaluation of the pelvis was performed. M-mode was used toevaluate the heart. Dining Room Host/Hostess images were obtained. COMPARISON: None FINDINGS: Uterus: [...] visualized.. Cul-de-sac: No free fluid is present. [facility] Beta HCG [id number] 19:47:05* Test Item Value Reference Range Interpretation Comme nts BETA HCG (test code = 3896566556) 59848.00 See_Comment [Automated messa ge] The system which generated this result transmitted reference range: Non- female and male patients: <5 mIU/mL. The reference range was not used to interpret this result as normal/abnormal. EVERARDO (test code = EVERARDO) Gestational Age ?Range (mIU/mL) 1-10 ?Weeks ?[id number] Weeks ?90747-15172516-58 Weeks ?4152-39683310-94 Weeks ?8711-471120 Biotin has been reported to cause a negative bias, interpret results relative to patient's use of biotin. [facility]. Metabolic Panel (68566)2024-10-14 19:05:41* Test Item Value Reference Range Interpretation Comme nts NA (test code = 2713061706) 137 mmol/L 135-145 K (test code = 9690530083) 3.7 mmol/L 3.5-5.0 CL (test code = 1159091476) 106 mmol/L 98-108 CO2 TOTAL (test code = 9664523506) 25 mmol/L 23-31 AGAP (test code = 5845365431) 6 2-16 BUN (test code = 1643386149) 5 mg/dL 7-23 L GLUCOSE (test code = 3710509540) 87 mg/dL 70-110 CREATININE (test code = 2160-0) 0.46 mg/dL 0.50-1.04 L TOTAL BILI (test code = 2744172784) 0.2 mg/dL 0.1-1.1 CALCIUM (test code = 4122857432) 9.3 mg/dL 8.6-10.6 T PROTEIN (test code = 4086964370) 7.6 g/dL 6.3-8.2 ALBUMIN (test code = 4721938322) 4.3 g/dL 3.5-5.0 ALK PHOS (test code = 4678201501) 51 U/L 34-122 ALTv (test code = 1742-6) 13 U/L 5-35 AST(SGOT) (test code = 3910694256) 14 U/L 13-40 eGFR (test code = 43442-6) 139.0 mL/min/1.73m2 CKD-EPI eGFR (2020). Assuming creatinine has been stable day-to-day for at least three months, the eGFR indicates Category G1 (>= 90 mL/min/1.73 m2) Lab Interpretation (test code = 79015-7) Abnormal [facility] with [id number] 18:58:02* Test Item Value Reference Range Interpretation [...] 35.0 g/dL 31.6-35.1 RDW-SD (test code = 09847-4) 37.1 fL 39.0-49.9 L RDW-CV (test code = 788-0) 12.0 % 12.0-15.5 PLT (test code = 777-3) 244 166-358 MPV (test code = 11937-4) 9.6 fL 9.5-12.9 NRBC/100 WBC (test code = 0313616093) 0.0 0.0-10.0 NRBC x10^3 (test code = 5666765413) See_Comment [Automated messa ge] The system which generated this result transmitted reference range: 10*3/?L. The reference range was not used to interpret this result as normal/abnormal. GRAN MAT (NEUT) % (test code = 770-8) 67.9 % IMM GRAN % (test code = 2021661944) 0.30 % LYMPH % (test code = 736-9) 24.9 % MONO % (test code = 5905-5) 6.0 % EOS % (test code = 713-8) 0.4 % BASO % (test code = 706-2) 0.5 % GRAN MAT x10^3(ANC) (test code = 7698296130) 5.39 10*3/uL 1.88-7.09 IMM GRAN x10^3 (test code = 3423469587) 0.00-0.06 LYMPH x10^3 (test code = 731-0) 1.98 10*3/uL 1.32-3.29 MONO x10^3 (test code = 742-7) 0.48 10*3/uL 0.33-0.92 EOS x10^3 (test code = 711-2) 0.03 10*3/uL 0.03-0.39 BASO x10^3 (test code = 704-7) 0.04 10*3/uL 0.01-0.07 Lab Interpretation (test code = 96256-0) Abnormal [facility] [id number] 18:31:00* Test Item Value Reference Range Interpretation Comme nts POCT PREG (test code = 1605) Positive On board controls acceptable with C Line (test code = 3574) Yes POCT PREG LOT # (test code = 3575) HCG 0000 [id number] POCT PREG TEST DATE (test code = 3576) 09/23/2025 Lab Interpretation (test cod e = 89814-8) Normal [facility] Urinalysis w/o Specific [id number] 20:38:00* Test Item Value Reference Range Interpretation [...] = 3257) 50 Negative - Negati ve [facility] [id number] 20:37:00* Test Item Value Reference Range Interpretation Comme nts POCT PREG (test code = 1605) Positive On board controls acceptable with C Line (test code = 3574) Yes POCT PREG LOT # (test code = 3575) POCT PREG TEST DATE ( test code = 3576) [facility] [id number] 22:15:00* Test Item Value Reference Range Interpretation Comme nts POCT PREG (test code = 1605) Negative On board controls acceptable with C Line (test code = 3574) Yes POCT PREG LOT # (test code = 3575) HCG [id number] POCT PREG TEST DATE (test code = 3576) 10/11/2024 Lab Interpretation (test cod e = 62761-0) [facility]APID TESTING)2021-05-22 12:21:27* Test Item Value Reference Range Interpretation Comme nts SARS-CoV-2 Rapid ID NOW (test code = 44741-2) Positive Not Detected A EVERARDO (test code = EVERARDO) ID NOW COVID-19 As say is an isothermal nucleic acid amplification test intended for the qualitative detection of nucleic acid from SARS-CoV-2 viral RNA in nasopharyngeal (CEMENT WORKER) specimens. It is used under Emergency [...] clinically indicated. Lab Interpretation (test code = 00654-9) Abnormal [facility] 12:05:50* Test Item Value Reference Range Interpretation Comme nts APPEARANCE (test code = 8004106062) Clear Clear COLOR (test code = 9826022305) Yellow Yellow PH (test code = 8515423694) 4.8-8.0 SP GRAVITY (test code = 9971364898) 1.003-1.030 GLU U QUAL (test code = 2873706649) Normal Normal BLOOD (test code = 5382071070) 1+ Negative A KETONES (test code = 5959676933) Negative Negative PROTEIN (test code = 2887-8) Negative Negative UROBILIN (test code = 3675871665) Normal Normal BILIRUBIN (test code = 4065939228) Negative Negative NITRITE (test code = 3724354763) Negative Negative LEUK EMILIANO (test code = 7363511543) Negative Negative RBC/HPF (test code = 5223445257) See_Comment [Automated Codementora ge] The system which generated this result transmitted reference range: 0 - 3 HPF. The reference range was not used to interpret this result as normal/abnormal. WBC/HPF (test code = 0321848622) See_Comment [Automated Codementora ge] The system which generated this result transmitted reference range: 0 - 5 HPF. The reference range was not used to interpret this result as normal/abnormal. BACTERIA (test code = 1673999898) Few Negative A SQ EPITH (test code = 7800925031) HPF TRANS EPI (test code = 9317366384) <1 See_Comment [Automated Codementora ge] The system which generated this result transmitted reference range: <=1 HPF. The reference range was not used to interpret this result as normal/abnormal. Lab Interpretation (test code = 95991-4) [id number] Test Item Value Reference Range Interpretation Comme nts POCT PREG (test code = 1605) Negative On board controls acceptable with C Line (test code = 3574) Present POCT PREG LOT # (test code = 3575) HCG [id number] POCT PREG TEST DATE ( test code = 3576) 10/08/2022 Lab Interpretation (test cod e = 99638-8) [id number] 17:42:24* Test Item Value Reference Range Interpretation Comme nts URINE CULTURE (test code = 630-4) 10,000 - 100,000 CFU/mL mixed aerobic organisms - suggests endogenous microbial contamination [facility] (NA, K, CL, CO2, GLUCOSE, BUN, CREATININE, CA)2021-03-12 11:27:06* Test Item Value Reference Range Interpretation Comme nts NA (test code = 8821820986) 137 mmol/L 135-145 K (test code = 0018629288) 3.1 mmol/L 3.5-5.0 L CL (test code = 7775657238) 103 mmol/L 98-108 CO2 TOTAL (test code = 2943139417) 27 mmol/L 23-31 AGAP (test code = 4257436468) 2-16 BUN (test code = 5466647265) 9 mg/dL 7-23 GLUCOSE (test code = 6313118515) 82 mg/dL 70-110 CREATININE (test code = 8203571915) 0.53 mg/dL 0.50-1.04 CALCIUM (test code = 7887697494) 8.9 mg/dL 8.6-10.6 eGFR (test code = 6453108119) mL/min/1.73m2 EVERARDO (test code = EVERARDO) Association [...] imaging tests). Lab Interpretation (test code = 93556-8) [facility]normal [facility] [id number] 11:22:32* Test Item Value Reference Range Interpretation Comme nts MAGNESIUM (test code = 8298011963) 2.1 mg/dL 1.7-2.4 Lab Interpretation (test cod e = 98420-6) Normal [facility] with [id number] 11:05:52* Test Item Value Reference Range Interpretation Comme nts WBC (test code = 6690-2) See_Comment [Automated [employer]] The system which generated this result transmitted reference range: 4.50 - 13.50 10*3/?L. The reference range was not used to interpret this result as normal/abnormal. RBC (test code = 789-8) See_Comment [Automated [employer]] The system which generated this result [...] 34.4 g/dL 32.0-36.0 RDW-SD (test code = 39204-7) 37.9 fL 38.5-49.0 L RDW-CV (test code = 788-0) 12.3 % 11.5-14.0 PLT (test code = 777-3) See_Comment [Automated messa ge] The system which generated this result transmitted reference range: 135 - 361 10*3/?L. The reference range was not used to interpret this result as normal/abnormal. MPV (test code = 23646-0) 10.1 fL 9.4-13.3 NRBC/100 WBC (test code = 7013529388) See_Comment [Automated me ssage] The system which generated this result transmitted reference range: 0.0 - 10.0 /100 WBCs. The reference range was not used to interpret this result as normal/abnormal. NRBC x10^3 (test code = 2976917906) <0.01 See_Comment [Automated messa ge] The system which generated this result transmitted reference range: 10*3/?L. The reference range was not used to interpret this result as normal/abnormal. GRAN MAT (NEUT) % (test code = 770-8) 59.8 % IMM GRAN % (test code = 8652478380) 0.80 % LYMPH % (test code = 736-9) 26.3 % MONO % (test code = 5905-5) 12.3 % EOS % (test code = 713-8) 0.5 % BASO % (test code = 706-2) 0.3 % GRAN MAT x10^3(ANC) (test code = 4172252780) 3.91 10*3/uL 1.50-10.30 IMM GRAN x10^3 (test code = 2100102804) 0.05 10*3/uL 0.00-0.06 LYMPH x10^3 (test code = 731-0) 1.72 10*3/uL 0.70-7.40 MONO x10^3 (test code = 742-7) 0.80 10*3/uL 0.00-0.50 H EOS x10^3 (test code = 711-2) 0.03 10*3/uL 0.00-0.40 BASO x10^3 (test code = 704-7) <0.03 0.00-0.10 Lab Interpretation (test code = 37890-8) [facility] NOW RAPID TESTING)2021-03-11 18:10:27* Test Item Value Reference Range Interpretation Comme nts SARS-CoV-2 Rapid ID NOW (test code = 50306-4) Not Detected Not Detected EVERARDO (test code = EVERARDO) ID NOW COVID-19 As say is an isothermal nucleic acid amplification test intended for the qualitative detection of nucleic acid from SARS-CoV-2 viral RNA in nasopharyngeal (CEMENT WORKER) specimens. It is used under Emergency [...] clinically indicated. Lab Interpretation (test code = 15073-0) Normal [facility] Acid Whole [id number] 17:11:07* Test Item Value Reference Range Interpretation Comme nts LACTIC ACID (test code = 2250804485) 0.91 mmol/L 0.50-2.20 Lab Interpretation (test cod e = 46621-9) Normal [facility] PELVIS W [id number] 16:28:25No acute abnormality identified. INDICATION: ?Abdominal abscess/infection [...] or abscess is noted.IMPRESSIONNo acute abnormality identified. [facility] with [id number] 16:05:33* Test Item Value Reference Range Interpretation [...] 34.6 g/dL 32.0-36.0 RDW-SD (test code = 85613-2) 36.3 fL 38.5-49.0 L RDW-CV (test code = 788-0) 11.9 % 11.5-14.0 PLT (test code = 777-3) See_Comment H [Automated message] The system which generated this result transmitted reference range: 135 - 361 10*3/?L. The reference range was not used to interpret this result as normal/abnormal. MPV (test code = 12038-6) 9.6 fL 9.4-13.3 NRBC/100 WBC (test code = 1548448269) See_Comment [Automated message] The system which generated this result transmitted reference range: 0.0 - 10.0 /100 WBCs. The reference range was not used to interpret this result as normal/abnormal. NRBC x10^3 (test code = 2779810725) <0.01 See_Comment [Automated message] The system which generated this result transmitted reference range: 10*3/?L. The reference range was not used to interpret this result as normal/abnormal. GRAN MAT (NEUT) % (test code = 770-8) 86.3 % IMM GRAN % (test code = 7774919921) 0.90 % LYMPH % (test code = 736-9) 6.3 % MONO % (test code = 5905-5) 6.1 % EOS % (test code = 713-8) 0.1 % BASO % (test code = 706-2) 0.3 % GRAN MAT x10^3(ANC) (test code = 2243409198) 20.00 10*3/uL 1.50-10.30 H IMM GRAN x10^3 (test code = 2468866501) 0.21 10*3/uL 0.00-0.06 H LYMPH x10^3 (test code = 731-0) 1.45 10*3/uL 0.70-7.40 MONO x10^3 (test code = 742-7) 1.42 10*3/uL 0.00-0.50 H EOS x10^3 (test code = 711-2) <0.03 0.00-0.40 BASO x10^3 (test code = 704-7) 0.07 10*3/uL 0.00-0.10 Lab Interpretation (test code = 88243-4) Abnormal [facility]Urinalysis2021-[facility] 15:41:19* Test Item Value Reference Range Interpretation Comme nts APPEARANCE (test code = 9052464121) Hazy Clear A COLOR (test code = 3236167982) Yellow Yellow PH (test code = 6983341875) 4.8-8.0 SP GRAVITY (test code = 8474456150) 1.003-1.030 GLU U QUAL (test code = 1154596376) Normal Normal BLOOD (test code = 8607243805) 1+ Negative A KETONES (test code = 4752187349) Negative Negative PROTEIN (test code = 2887-8) Negative Negative UROBILIN (test code = 6557614152) Normal Normal BILIRUBIN (test code = 2149054034) Negative Negative NITRITE (test code = 8337913638) Negative Negative LEUK EMILIANO (test code = 1479230310) 500/uL Negative A RBC/HPF (test code = 2652841010) See_Comment H [Automated messa ge] The system which generated this result transmitted reference range: 0 - 3 HPF. The reference range was not used to interpret this result as normal/abnormal. WBC/HPF (test code = 6159952444) See_Comment H [Automated messa ge] The system which generated this result transmitted reference range: 0 - 5 HPF. The reference range was not used to interpret this result as normal/abnormal. BACTERIA (test code = 1056695791) Few Negative A MUCOUS (test code = 8686667957) Slight Negative LPF A SQ EPITH (test code = 8990964685) HPF Lab Interpretation (test code = 40147-7) Abnormal [facility] Metabolic [id number] 15:37:26* Test Item Value Reference Range Interpretation Comme nts NA (test code = 9551187758) 137 mmol/L 135-145 K (test code = 9851734778) 3.9 mmol/L 3.5-5.0 CL (test code = 4891036588) 104 mmol/L 98-108 CO2 TOTAL (test code = 2271706541) 25 mmol/L 23-31 AGAP (test code = 9179208375) 2-16 BUN (test code = 1392831371) 15 mg/dL 7-23 GLUCOSE (test code = 2420541045) 106 mg/dL 70-110 CREATININE (test code = 6850483694) 0.54 mg/dL 0.50-1.04 TOTAL BILI (test code = 6471638184) 0.8 mg/dL 0.1-1.1 CALCIUM (test code = 4577893407) 9.4 mg/dL 8.6-10.6 T PROTEIN (test code = 2757961657) 7.9 g/dL 6.3-8.2 ALBUMIN (test code = 0915819993) 4.5 g/dL 3.5-5.0 ALK PHOS (test code = 1718413941) 87 U/L 34-122 ALTv (test code = 1742-6) 21 U/L 5-35 AST(SGOT) (test code = 5022453504) 21 U/L 13-40 eGFR (test code = 8847792075) mL/min/1.73m2 EVERARDO (test code = EVERARDO) Association [...] or urine or abnormalities in imaging tests). [facility] HospitalLipase, Taayu2022-25-90 15:36:45* Test Item Value Reference Range Interpretation Comme nts LIPASE (test code = 2352693709) 52 U/L 0-220 Lab Interpretation (test cod e = 70959-0) Normal [facility]PO[facility] [id number] 15:06:00* Test Item Value Reference Range Interpretation Comme nts POCT PREG (test code = 1605) negative On board controls acceptable with C Line (test code = 3574) present POCT PREG LOT # (test code = 3575) [id number] POCT PREG TEST DATE ( test code = 3576) 09/07/2022 Lab Interpretation (test cod e = 96854-3) Normal [facility] ([facility] NOW RAPID TESTING)2021-02-25 02:15:05* Test Item Value Reference Range Interpretation Comme nts SARS-CoV-2 Rapid ID NOW (test code = 09204-7) Not Detected Not Detected EVERARDO (test code = EVERARDO) ID NOW COVID-19 As say is an isothermal nucleic acid amplification test intended for the qualitative detection of nucleic acid from SARS-CoV-2 viral RNA in nasopharyngeal (CEMENT WORKER) specimens. It is used under Emergency [...] clinically indicated. Lab Interpretation (test code = 86786-0) Normal [facility] ([facility]OVID-19) by RT-PCR (HIGH RISK) 2020-04-13 00:00:00* Test Item Value Reference Range Interpretation Comme nts SARS-CoV-2 INTERPRETATION (t est code = 17421) NEGATIVE SOURCE (test code = 36678) NOT SPECIFIED Marco Antonio Goins"
[2024-11-10] MEDS ORDERED: ACETAMINOPHEN 325 MG TABLET ONE (11:17)
[2024-11-10 11:55] LABS: SARS-CoV-2 Antigen CONTROL BLUE LINE VIS/BG OK; SARS-CoV-2 Antigen Rapid Res Negative (Negative)
--- NOTE | 2024-11-10 12:01 | ER ---
Nurse's Notes [facility] Name: Latonia Tabares Age: 24 yrs Sex: Female : 2000 Arrival Date: 11/10/2024 Time: 11:07 Bed 9 Private MD: Diagnosis: Acute upper respiratory infection, unspecified Presentation: 11/10 11:15 Chief complaint: Headache, sinus congestion, nausea, fever, and cough x 2 days. hb Coronavirus screen: Client presents with at least one sign or symptom that may indicate coronavirus-19. Provider contacted for isolation considerations. Ebola Screen: No symptoms or risks identified at this time. Initial Sepsis Screen: Does the patient meet any 2 criteria? No. Patient's initial sepsis screen is negative. Does the patient have a suspected source of infection? No. Patient's initial sepsis screen is negative. Risk Assessment: Do you want to hurt yourself or someone else? Patient reports no desire to harm self or others. Onset of symptoms was November 09, 2024. 11:15 Method Of Arrival: Ambulatory hb 11:15 Acuity: NICHO 3 Triage Assessment: 17:46 General: Appears. 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 - Infectious Disease History:: Denies. - Social history:: Smoking status: Patient denies any tobacco usage or history of. - Family history:: not pertinent. - Hospitalizations: : No recent hospitalization is reported. Screenin:30 [facility] ED Fall Risk Assessment (Adult) History of falling in the last 3 months, hb including since admission No falls in past 3 months (0 pts) Confusion or Disorientation No (0 pts) Intoxicated or Sedated No (0 pts) Impaired Gait No (0 pts) Mobility Assist Device Used No (0 pt) Altered Elimination No (0 pt) Score/Fall Risk Level 0 - 2 = Low Risk Oriented to surroundings, Maintained a safe environment, Educated pt \T\ family on fall prevention, incl call for assistance when getting out of bed. Abuse screen: Denies threats or abuse. Denies injuries from another. Nutritional screening: No deficits noted. Tuberculosis screening: No symptoms or risk factors identified. Assessment: 11:30 General: Appears in no apparent distress. Behavior is calm, cooperative. Pain: Pain hb currently is 8 out of 10 on a pain scale. Neuro: Level of Consciousness is awake, alert, obeys commands, Oriented to person, place, time, situation, Reports headache. Cardiovascular: Patient's skin is warm and dry. Respiratory: Respiratory effort is even, unlabored, Respiratory pattern is regular, symmetrical. Respiratory: Respiratory effort is. EENT: Reports sore throat, sinus congestion. 12:30 Reassessment: Patient appears in no apparent distress at this time. Patient and/or hb family updated on plan of care and expected duration. Pain level reassessed. Patient is alert, oriented x 3, equal unlabored respirations, skin warm/dry/pink. Vital Signs: 11:15 BP 107 / 73; Pulse 122; Resp 16; Temp 99.1(O); Pulse Ox 100% on R/A; Weight 99.79 kg; hb Height 5 ft. 4 in. ; Pain 8/10; 12:30 Pulse 88; hb 11:15 Body Mass Index 37.76 (99.79 kg, 162.56 cm) hb 11:15 Pain Scale: Adult hb ED Course: 11:10 Patient arrived in ED. ra3 11:11 Madhu Stevens MD is Attending Physician. rn 11:14 Arm band placed on right wrist. hb 11:17 Triage completed. hb 11:19 Carly Tierney, BERNIE is Primary Nurse. hb 11:26 Strep Sent. hb 11:26 SARS-COV-2 Antigen Rapid Sent. hb 11:26 Flu Sent. hb 12:30 Patient has correct armband on for positive identification. Provided Education on: hb follow up, medications. 12:30 No provider procedures requiring assistance completed. Patient did not have IV access hb during this emergency room visit. Administered Medications: 11:26 Drug: Acetaminophen PO 650 mg PO once Route: PO; hb 12:40 Follow up: Response: No adverse reaction hb Medication: 12:43 VIS not applicable for this client. hb Outcome: 12:00 Discharge ordered by . rn 12:40 Discharged to home ambulatory, hb 12:40 Condition: stable 12:40 Discharge instructions given to patient, Instructed on discharge instructions, follow up and referral plans. medication usage, Demonstrated understanding of instructions, follow-up care, medications, Prescriptions given X 1, 12:44 Patient left the ED. Signatures: Madhu Stevens MD MD rn Carly Tierney RN RN Debora Staton 3
--- NOTE | 2024-11-10 12:01 | EDPHYS ---
Physician Documentation [facility] Name: Latonia Tabares Age: 24 yrs Sex: Female : 2000 Arrival Date: 11/10/2024 Time: 11:07 Bed 9 Private MD: ED Physician Madhu Stevens HPI: 11/10 11:17 This 24 yrs old Female presents to ER via Unassigned with complaints of Sinus rn Congestion, Shortness Of Breath, Headache. 11:17 The patient or guardian reports cough, flu symptoms. Onset: The symptoms/episode rn began/occurred 2 day(s) ago. Severity of symptoms: At their worst the symptoms were mild, in the emergency department the symptoms are unchanged. Modifying factors: The symptoms are alleviated by nothing, the symptoms are aggravated by nothing. The patient has not experienced similar symptoms in the past. Patient reports flulike symptoms for 2 days, sinus congestion and sore throat with cough. Reports feels the majority of her congestion in her throat and feels short of breath but more in her throat and not the lungs. No chronic lung problems but is 14 weeks .. 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 - Infectious Disease History:: Denies. - Social history:: Smoking status: Patient denies any tobacco usage or history of. - Family history:: not pertinent. - Hospitalizations: : No recent hospitalization is reported. ROS: 11:17 Constitutional: Positive for fever Cardiovascular: Negative for chest pain, rn palpitations, and edema, Respiratory: Positive for cough Abdomen/GI: Negative for abdominal pain, nausea, vomiting, diarrhea, and constipation, : Negative for injury, bleeding, discharge, and swelling, MS/Extremity: Negative for injury and deformity, Skin: Negative for injury, rash, and discoloration, Neuro: Positive for headache and generalized weakness Exam: 11:17 Constitutional: This is a well developed, well nourished patient who is awake, alert, rn and in no acute distress. Ambulatory to room without assistance or difficulty ENT: Clear nasal drainage, mild pharyngeal erythema, no stridor Neck: Nontender cervical lymphadenopathy, no meningismus Cardiovascular: Tachycardic, regular Respiratory: No increased work of breathing, no retractions or nasal flaring. Vital Signs: 11:15 BP 107 / 73; Pulse 122; Resp 16; Temp 99.1(O); Pulse Ox 100% on R/A; Weight 99.79 kg; hb Height 5 ft. 4 in. ; Pain 8/10; 12:30 Pulse 88; hb 11:15 Body Mass Index 37.76 (99.79 kg, 162.56 cm) hb 11:15 Pain Scale: Adult hb MDM: 11:11 Medical Screening Exam initiated rn 11:49 Refusal of service: The patient/guardian displays adequate decision making capability rn and despite a detailed discussion of alternatives, benefits, risks, and consequences refuses: all X-rays. 11:59 Differential Diagnosis: Bronchitis Influenza Upper Respiratory Infection Viral Syndrome rn Pneumonia. Data reviewed: vital signs, nurses notes, lab test result(s), and as a result, I will discharge patient. Counseling: I had a detailed discussion with the patient and/or guardian regarding the historical points, exam findings, and any diagnostic results supporting the discharge/admit diagnosis, lab results, the need for outpatient follow up, to return to the emergency department if symptoms worsen or persist or if there are any questions or concerns that arise at home. Special discussion: I discussed with the patient/guardian in detail that at this point there is no indication for admission to the hospital. It is understood, however, that if the symptoms persist or worsen the patient needs to return immediately for re-evaluation. ED course: Patient declined chest x-ray. All studies negative. Will place on safe antibiotics and given return precautions.. 11/10 11:16 Order name: Flu; Complete Time: 11:57 rn 11/10 11:16 Order name: SARS-COV-2 Antigen Rapid; Complete Time: 11:57 rn 11/10 11:16 Order name: Strep rn 11/10 11:58 Order name: Throat Culture EDMS Administered Medications: 11:26 Drug: Acetaminophen PO 650 mg PO once Route: PO; hb 12:40 Follow up: Response: No adverse reaction hb Disposition Summary: 11/10/24 12:00 Discharge Ordered Notes: Location: Home rn Problem: new rn Symptoms: have improved rn Condition: Stable rn Diagnosis - Acute upper respiratory infection, unspecified rn Followup: rn - With: Private Physician - When: As needed - Reason: Recheck today's complaints, Re-evaluation by your physician Discharge Instructions: - Discharge Summary Sheet rn - Upper Respiratory Infection, Adult rn Forms: - Medication Reconciliation Form rn - Antibiotic civil rights attorney - Prescription Opioid Use rn - Patient Portal Instructions rn - Leadership Thank You Letter rn - Work release form hb Prescriptions: - Amoxicillin 875 mg Oral Tablet - take 1 tablet ORAL route every 12 hours for 10 days; 20 tablet; Refills: 0, rn Product Selection Permitted Signatures: Dispatcher [employer] EDMS Madhu Stevesn MD MD rn Baxter, Heather, RN RN Corrections: (The following items were deleted from the chart) 11:16 11:16 Chest Single View+RAD.RAD.BRZ ordered. EDAL EDAL 11:16 11:16 Influenza Screen (A \T\ B)+BA.LAB.BRZ ordered. EDAL EDAL 11:16 11:16 SARS-COV-2 Antigen Rapid+I.LAB.BRZ ordered. [facility] EDAL 11:16 11:16 Group A Streptococcus Rapid Sc+BA.LAB.BRZ ordered. [facility] EDAL 11:19 11:17 Constitutional: Positive for fever Cardiovascular: Negative for chest pain, rn palpitations, and edema, Respiratory: Positive for cough Abdomen/GI: Negative for abdominal pain, nausea, vomiting, diarrhea, and constipation, MS/Extremity: Negative for injury and deformity, Skin: Negative for injury, rash, and discoloration, Neuro: Positive for headache and generalized weakness rn
[2024-11-10 12:50] VITALS: BP 107/73; TEMP 99.1; O2SAT 100
== END 2024-11-10 12:44 | disposition home or self-care (01) ==
LOC: ER 11:07
DX: O99.512 Diseases of the respiratory system complicating pregnancy, second trimester (principal); Z3A.15 15 weeks gestation of pregnancy; Z11.52 Encounter for screening for COVID-19
CPT/HCPCS: 36415; 87070; 87081; 87804; 87811; 99283

== ENCOUNTER 2025-01-28 21:12 | Emergency (ER) | payer OTHER ==
--- OUTSIDE RECORDS SUMMARY | 2025-01-28 21:19 | XMS REPORT | Continuity of Care Document ---
Author Name Unknown Address [address] [facility] [address] [place] [address] [facility] Address [address] [address] [place] [address] Care Team Providers Care Battery Assembler Name Role Phone Vivienne Weiner Primary Care Physician [phone] NUBIA HANLEY Attending Clinician Unavail able Nubia Sorenson Attending Clinician + JONO ZELAYA Attending Clinician Un available Doctor Unassigned, [place] Attending Clinician U Ayala Tolbert CNM Attending Clinician Vicki Light RN Attending Clinician UnavailFaiza Bauer Attending Clinician [phone] FAIZA MURPHY Attending Clinician Unavailable Unknown, Attending Attending Clinician Unavailab ABI Mcdaniels Attending Clinician Unavailable ABI LÓPEZ Attending Clinician Unavailable ABI LÓPEZ Attending Clinician Unavailable Ultrasound, Shawna Attending Clinician Unavailjeaneth López MD, Abi Attending Clinician [phone] AYALA HAN Attending Clinician Unavaila FABRIZIO Haque Attending Clinician Unavailable FABRIZIO AVALOS Attending Clinician Unavailable Fabrizio Avalos DO Attending Clinician [phone] JENNIFER REYNAGA Attending Clinician Unavailable Reynaga ASPHALT ENGINEER, Jennifer Attending Clinician [phone] THELMA GARCIA Attending Clinician Unavailable Vincruth ASPHALT ENGINEER, Thelma Attending Clinician [phone] Ceci GIBBS, Gissell Attending Clinician Monse vailable Doctor Unassigned, [place] Attending Clinician U navailable Akinsipe WHCNP, Nubia C Attending Clinician + MICHA VANESSA Attending Clinician Unavailable Micha Zamudio Attending Clinician + [phone] Suzette Michele MD Attending Clinician + [phone] SUZETTE MICHELE Attending Clinician Unavailable Solange Ford MD Attending Clinician + [phone] Anatoly Valdovinos MD Attending Clinician + [phone] [facility] Attending Clinician Unava ilable FABRIZIO AVALOS Admitting Clinician Unavailable Anatoly Valdovinos MD Admitting Clinician + [phone] Payers Payer Name Policy Type Policy Number Effective Date Expirati on Date Source [facility] [id number] 2017 00:00:00 [employer] [id number] 2024 00:00:00 Problems Condition Name Condition Details Condition Category Status Onset Date Resolution Date Last Treatment Date Treating Clinician Comments Source Rh negative state in antepartum period Rh negative state in antepartum period Disease Active 2023-10 00:00: 00 [facility] Supervisio n of high-risk Supervisio n of high-risk Disease Active 2023-10 00:00: 00 [facility] Obesity in Obesity in Disease Active 2018-10 0-08 00:00: 00 [facility] BMI 39.0-39.9, adult BMI 39.0-39.9, adult Disease Active 2018-10 0-08 00:00: 00 [facility] Vomiting Vomiting Disease Resolve d 0 6-03 00:00: 00 2024-09-18 00:00:00 2024-09-18 15:46:24 [facility] Obesity (BMI 30-39.9) Obesity (BMI 30-39.9) Disease Resolve d 0 6- 00:00: 00 2024-09-18 00:00:00 2024-09-18 15:46:29 [facility] Sexually active child Sexually active child Disease Resolve d 2018-10 008 00:00: 00 2024-09-18 00:00:00 2024-09-18 15:46:18 [facility] Depo-Prove ra contracept dash status Depo-Prove ra contracept dash status Disease Resolve d 1-10 00:00: 00 2024-09-18 00:00:00 2024-09-18 15:46:26 [facility] Screening examinatio n for STD (sexually transmitte d disease) Screening examinatio n for STD (sexually transmitte d disease) Disease Resolve d 2017-10 0-10 00:00: 00 2024-09-18 00:00:00 2024-09-18 15:46:23 [facility] Over weight Over weight Disease Resolve d 2017-10 0-10 00:00: 00 2024-09-18 00:00:00 2024-09-18 15:46:22 [facility] control control Disease Resolve d 9-26 00:00: 00 2024-09-18 00:00:00 2024-09-18 15:46:15 [facility] Allergies, Adverse Reactions, Alerts Allergy Name Allergy Type Status Severity Reaction(s) Onset Date Inactive Date Treating Clinician Comments Source NO KNOWN ALLERGIE S Drug Class Active [facility] Social History Social Habit Start Date Stop Date Quantity Comments Source ASSERTION 2024-08-20 00:00:00 [facility] History SDOH Alcohol Comment [facility] History SDOH Alcohol Std Drinks [facility] History SDOH Alcohol Binge [facility] Alcoholic beverage intake 2024-11-13 00:00:00 2024-11-13 00:00:00 0 /d [facility] Tobacco use and exposure 2024-10-16 00:00:00 2024-10-16 00:00:00 Smokeless tobacco non-user [facility] History of Social function 2024-09-18 00:00:00 2024-09-18 00:00:00 [facility] Exposure to SARS-CoV-2 (event) 2023-02-13 00:00:00 2023-02-23 17:41:00 Not sure [facility] Alcohol intake 2021-10-18 00:00:00 2021-10-18 00:00:00 0 /d [facility] Education 2021-03-11 00:00:00 2021-03-11 00:00:00 13 [facility] History SDOH Alcohol Frequency 2019-07-16 00:00:00 2019-07-16 00:00:00 1 [facility] Sex assigned at 2002 00:00:00 2000 00:00:00 [facility] Smoking Status Start Date Stop Date Source Never smoked tobacco [facility] Medications Ordered Medication Name Filled Medication Name Start Date Stop Date Current Medication? Ordering Clinician Indication Dosage Frequency Signature (SIG) Comments Components Source clindamycin 300 mg capsule 10-30 00:00: 00 11-07 05:59 :00 Yes [id number] 300mg Take 1 capsule by mouth in the morning and 1 capsule in the evening. Do all this for 7 days. [facility] metroNIDAZO LE 500 mg tablet 10-28 00:00: 00 10-30 00:00 :00 No [id number] 500mg Take 1 tablet by mouth every 12 (twelve) hours for 7 days. [facility] cyclobenzap rine 5 mg tablet 1-06 00:00: 00 Yes [id number] 5mg Take 1 tablet by mouth in the morning and 1 tablet at noon and 1 tablet in the evening. [facility] PNV 67-iron ps-folate no.1-dha (VITAFOL ULTRA) 29 mg iron- 1 mg-200 mg Cap 2023-10 00:00: 00 Yes [id number] 1{each} Take 1 Each by mouth in the morning. [facility] proMETHazin e 25 mg tablet 2023-10 00:00: 00 Yes [id number] 25mg Take 1 tablet by mouth every 6 (six) hours as needed for Nausea and Vomiting (N/V). [facility] maalox:diph enhydrAMINE :lidocaine 2 % viscous 1:1:1 (FIRST-MOUT HWASH BLM) oral suspension 15 mL 05-23 21:00: 00 05-23 22:18 :00 No 15mL 15 mL, Oral, ONCE, 1 dose, On Mon05/23/23 at 1600, Routine [facility] pantoprazol e (PROTONIX) injection 40 mg 05-23 21:00: 00 05-23 22:17 :00 No 40mg 40 mg, Slow IV Push, ONCE, 1 dose, On Mon05/23/23 at 1600 [facility] ondansetron (ZOFRAN (PF)) injection 4 mg 05-23 21:00: 00 05-23 22:17 :00 No 4mg 4 mg, Slow IV Push, ONCE, 1 dose, On Mon05/23/23 at 1600, LEOLA [facility] ondansetron 4 mg disintegrat ing tablet 05-23 00:00: 00 09-18 00:00 :00 No [id number] 4mg Take 1 tablet by mouth every 8 (eight) hours as needed for Nausea and Vomiting (N/V). [facility] famotidine (PEPCID) 20 mg tablet 05-23:00: 00 06-23 04:59 :00 No [id number] 20mg Take 1 tablet by mouth in the morning and 1 tablet in the evening. Do all this for 30 days. [facility] predniSONE (DELTASONE) tablet 10 mg 02-24 00:30: 00 02-24 00:39 :00 No 10mg 10 mg, Oral, ONCE, 1 dose, [facility] 1930[facility] -[facility]av[facility]an[facility] (AUGMENTIN) 875-125 mg per tablet 1 tablet 02-24 00:28: 00 02-24 00:38 :00 No 1{tbl} 1 tablet, Oral, ONCE, 1 dose, On Elizabeth 02/23/23 at 1930, LEOLA
Re ason for Anti-Infec tive: Documented Infection< br>Documen candido Infection Site: HEENT
D uration of Therapy: Other (see Comments) [facility] ketorolac (TORADOL) injection 30 mg 02-23 23:09: 00 02-23 23:23 :00 No 30mg 30 mg, Intramuscu lar, ONCE, 1 dose, On Elizabeth 02/23/23 at 1815, [facility] amoxicillin -clavulanat e 875-125 mg per tablet 02-23 00:00: 00 09-18 00:00 :00 No [id number] 1{tbl} Take 1 tablet by mouth every 12 (twelve) hours. [facility] predniSONE 10 mg tablet 02-23 00:00: 00 02-27 04:59 :00 No [id number] 30mg Take 3 tablets by mouth in the morning for 3 days. [facility] ibuprofen (IBU) tablet 600 mg - 05:45: 00 10-19 04:40 :00 No 600mg 600 mg, Oral, ONCE, 1 dose, On 10/18/21 at 2345, [facility] HYDROcodone -acetaminop hen (NORCO) 10-325 mg tablet 1 tablet 05-22 13:15: 00 05-22 12:30 :00 No 1{tbl} 1 tablet, Oral, ONCE, 1 dose, 05/22/21 at 0815, Routine [facility] ibuprofen 800 mg tablet 05-22 00:00: 00 02-23 00:00 :00 No [id number] 800mg Take 1 tablet by mouth every 8 (eight) hours as needed for Pain (scale 4-6) or Temp > 38.5 C. [facility] cefTRIAXone (ROCEPHIN) 1,000 mg in NaCl 0.9% (NS) 50 mL MINI-BAG 03-12 16:00: 00 03-12 16:18 :00 No 1000mg 1,000 mg, IV Piggyback, ONCE, 1 dose, 03/12/21 at 1100, 50 mL
Reas on for Anti-Infec tive: Empiric Therapy for Suspected Infection< br>Empiric Therapy Site: Urine
D uration of therapy: 72 hours [facility] KCL (KLOR-CON M20) tablet 40 mEq 03-12 12:45: 00 03-12 13:07 :00 No 40meq 40 mEq, Oral, ONCE, 1 dose, 03/12/21 at 0745, Routine [facility] morpHINE injection 4 mg 03-12 07:16: 17 Yes 4mg 4 mg, Slow IV Push, Q4HPRN, Starting 03/12/21 at 0216, Until Discontinu ed, Routine, Pain (scale 7-10) [facility] pantoprazol e (PROTONIX) 40 mg in NaCl 0.9% (NS) 100 mL MINI-BAG 03-12 00:15: 00 Yes 40mg 40 mg, IV Piggyback, Q24H, First dose on Elizabeth 03/11/21 at 1915, Until Discontinu ed, 100 mL [facility] ondansetron 4 mg tablet 03-12 00:00: 00 2021- 06-15 04:59 :00 No [id number] 4mg Take 1 tablet by mouth every 8 (eight) hours for 10 days. [facility] cephALEXin 500 mg capsule 03-12 00:00: 00 03-16 04:59 :00 No [id number] 500mg Take 1 capsule by mouth 2 (two) times daily for 3 days. [facility] enoxaparin (LOVENOX) injection 30 mg 03-11 22:00: 00 Yes 30mg 30 mg, Subcutaneo us, DAILY, First dose on Elizabeth 03/11/21 at 1700, Until Discontinu ed, Routine [facility] D5W-LR IV infusion 1,000 mL 03-11 21:45: 00 Yes 1000mL at 125 mL/hr, IV Infusion, CONTINUOUS , Starting Elizabeth 03/11/21 at 1645, Until Discontinu ed, Routine [facility] morpHINE injection 4 mg 03-11 21:15: 00 03-11 20:32 :00 No 4mg 4 mg, Slow IV Push, ONCE, 1 dose, Elizabeth 03/11/21 at 1615, STAT [facility] ondansetron (ZOFRAN (PF)) injection 4 mg 03-11 20:38: 54 Yes 4mg 4 mg, Slow IV Push, Q6HPRN, Starting Elizabeth 03/11/21 at 1538, Until Discontinu ed, Routine, Nausea and Vomiting (N/V) [facility] acetaminoph en-codeine (TYLENOL #3) 300-30 mg tablet 1 tablet 03-11 20:38: 49 03-13 20:37 :49 No 1{tbl} 1 tablet, Oral, Q6HPRN, Starting Elizabeth 03/11/21 at 1538, Until 03/13/21 at 1537, Routine, Pain (scale 4-6) [facility] acetaminoph en (TYLENOL) tablet 650 mg 03-11 20:38: 42 Yes 650mg 650 mg, Oral, Q6HPRN, Starting Elizabeth 03/11/21 at 1538, Until Discontinu ed, Routine, Pain (scale 1-3) [facility] cefTRIAXone (ROCEPHIN) 1,000 mg in NaCl 0.9% (NS) 50 mL MINI-BAG 03-11 18:00: 00 03-11 17:41 :00 No 1000mg 1,000 mg, IV Piggyback, ONCE, 1 dose, Elizabeth 03/11/21 at 1300, 50 mL
Reas on for Anti-Infec tive: Empiric Therapy for Suspected Infection< br>Empiric Therapy Site: Abdominal< br>Duratio n of therapy: 72 hours [facility] iopamidol (ISOVUE 370-500 mL) injection 120 mL 03-11 17:00: 00 03-11 17:00 :00 No [id number] 120mL 120 mL, Intravenou s, ONCE, 1 dose, Elizabeth 03/11/21 at 1200, Routine [facility] morpHINE injection 4 mg 03-11 16:45: 00 03-11 15:43 :00 No 4mg 4 mg, Slow IV Push, ONCE, 1 dose, Elizabeth 03/11/21 at 1145, STAT [facility] ondansetron (ZOFRAN (PF)) injection 4 mg 03-11 16:30: 00 03-11 15:41 :00 No 4mg 4 mg, Slow IV Push, ONCE, 1 dose, Elizabeth 03/11/21 at 1130, LEOLA [facility] NaCl 0.9% (NS) bolus infusion 1,000 mL 03-11 16:30: 00 03-11 19:19 :00 No 1000mL at 999 mL/hr, 1,000 mL, IV Infusion, ONCE, 1 dose, Elizabeth 03/11/21 at 1130, STAT [facility] sodium chloride (NS) injection 5 mL 03-11 14:57: 42 Yes 5mL 5 mL, Intravenou s, PRN, Starting Elizabeth 03/11/21 at 0957, Until Discontinu ed, Routine, IV line flushing [facility] codeine-gua ifenesin (ROBITUSSIN AC) 10-100 mg/5 mL solution 10 mL 03-06 05:00: 00 03-06 04:26 :00 No 10mL 10 mL, Oral, ONCE, 1 dose, 03/06/21 at 0000, LEOLA [facility] dexamethaso ne (DECADRON PHOSPHATE) injection 10 mg 03-06 05:00: 00 03-06 04:19 :00 No 10mg 10 mg, Intramuscu lar, ONCE, 1 dose, 03/06/21 at 0000, STAT [facility] methylPREDN ISolone (MEDROL, TILA,) 4 mg tablets 03-06 00:00: 00 Yes [id number] Take by mouth SEE-INSTRU CTIONS. follow package directions [facility] azithromyci n 250 mg tablet 03-06 00:00: 00 Yes [id number] 250mg Take 1 tablet by mouth daily. Take 500 mg day 1, then 250 mg days 2 to 5. [facility] albuterol 90 mcg/actuati on inhaler 03-06 00:00: 00 05-22 00:00 :00 No [id number] 2{puff} Inhale 2 Puffs every 4 (four) hours as needed for Wheezing or Shortness of Breath. [facility] codeine-gua ifenesin 10-100 mg/5 mL solution 03-06 00:00: 00 03-14 04:59 :00 No [id number] 10mL Take 10 mL by mouth every 6 (six) hours as needed for Cough for up to 7 days. Indication s: acute pain [facility] benzonatate 100 mg capsule 02-24 00:00: 00 03-12 00:00 :00 No [id number] 100mg Take 1 capsule by mouth 3 (three) times daily as needed for Cough. [facility] predniSONE 20 mg tablet 02-24 00:00: 00 03-01 04:59 :00 No [id number] 20mg Take 1 tablet by mouth 2 (two) times daily for 4 days. [facility] medroxyPROG ESTERone (DEPO-PROVE RA) injection 150 mg 2018-10 0 15:00: 00 06-30 14:59 :00 No [id number] 150mg [facility] traMADOL (ULTRAM) 50 mg tablet 6-16 00:00: 00 03-12 00:00 :00 No 50mg Take 1 tablet by mouth every 6 (six) hours as needed for Pain (scale 4-6). [facility] Immunizations Ordered Immunization Name Filled Immunization Name Date Status Comments Source Flu Injectable MDCK Pres-Free (FLUCELVAX) 2024-09-18 00:00:00 Completed [facility] TDAP (ADACEL) VACCINE 2021-10-19 00:00:00 Completed [facility] Meningococcal Polysaccharide (groups A, C, Y and W-135) conjugate vaccine (MCV4P) 2021-10-19 00:00:00 Completed [facility] HPV9 2021-10-19 00:00:00 Completed [facility] DTAP 2021-10-19 00:00:00 Completed [facility] HIB 3 Dose Schedule 2021-10-19 00:00:00 Completed [facility] HEPATITIS A 2021-10-19 00:00:00 Completed [facility] Hep B, Adol or Pedi Dosage 2021-10-19 00:00:00 Completed [facility] HPV 2021-10-19 00:00:00 Completed [facility] MMR 2021-10-19 00:00:00 Completed [facility] Pneumococcal 13 Conjugate, PCV13 (Prevnar 13) 2021-10-19 00:00:00 Completed [facility] Polio (IPV/OPV) 2021-10-19 00:00:00 Completed [facility] Proquad (MMR/VARICELLA) 2021-10-19 00:00:00 Completed [facility] Varicella (varivax)(chicken pox) 2021-10-19 00:00:00 Completed [facility] TDAP (ADACEL) VACCINE 2021-10-19 00:00:00 Completed [facility] Meningococcal Polysaccharide (groups A, C, Y and W-135) conjugate vaccine (MCV4P) 2021-10-19 00:00:00 Completed [facility] HPV9 2021-10-19 00:00:00 Completed [facility] DTAP 2021-10-19 00:00:00 Completed [facility] HIB 3 Dose Schedule 2021-10-19 00:00:00 Completed [facility] HEPATITIS A 2021-10-19 00:00:00 Completed [facility] Hep B, Adol or Pedi Dosage 2021-10-19 00:00:00 Completed [facility] HPV 2021-10-19 00:00:00 Completed [facility] MMR 2021-10-19 00:00:00 Completed [facility] Pneumococcal 13 Conjugate, PCV13 (Prevnar 13) 2021-10-19 00:00:00 Completed [facility] Polio (IPV/OPV) 2021-10-19 00:00:00 Completed [facility] Proquad (MMR/VARICELLA) 2021-10-19 00:00:00 Completed [facility] Varicella (varivax)(chicken pox) 2021-10-19 00:00:00 Completed [facility] HPV 2018-10-18 00:00:00 Completed [facility] HPV9 2018-10-18 00:00:00 Completed [facility] HPV 2018-10-18 00:00:00 Completed [facility] HPV9 2018-10-18 00:00:00 Completed [facility] HPV 2018-10-18 00:00:00 Completed [facility] HPV9 2018-10-18 00:00:00 Completed [facility] HPV 2018-10-18 00:00:00 Completed [facility] HPV9 2018-10-18 00:00:00 Completed [facility] HPV 2018-10-18 00:00:00 Completed [facility] HPV9 2018-10-18 00:00:00 Completed [facility] HPV 2018-10-18 00:00:00 Completed [facility] HPV9 2018-10-18 00:00:00 Completed [facility] HPV 2018-10-18 00:00:[address] [facility] HPV9 2018-10-18 00:00:00 Completed [facility] HPV 2018-10-18 00:00:[address] [facility] HPV9 2018-10-18 00:00:00 Completed [facility] HPV 2018-10-18 00:00:00 Completed [facility] HPV9 2018-10-18 00:00:00 Completed [facility] HPV 2018-10-18 00:00:00 Completed [facility] HPV9 2018-10-18 00:00:00 Completed [facility] HPV 2018-10-18 00:00:00 Completed HPV9 2018-10-18 00:00:00 Completed [facility] HPV 2018-07-18 00:00:00 Completed [facility] HPV9 2018-07-18 00:00:00 Completed [facility] HPV 2018-07-18 00:00:00 Completed [facility] HPV9 2018-07-18 00:00:00 Completed [facility] HPV 2018-07-18 00:00:[address] [facility] HPV9 2018-07-18 00:00:00 Completed [facility] HPV 2018-07-18 00:00:[address] [facility] HPV9 2018-07-18 00:00:[address] [facility] HPV 2018-07-18 00:00:[address] [facility] HPV9 2018-07-18 00:00:00 Completed [facility] HPV 2018-07-18 00:00:[address] [facility] HPV9 2018-07-18 00:00:[address] [facility] HPV 2018-07-18 00:00:[address] [facility] HPV9 2018-07-18 00:00:00 Completed [facility] HPV 2018-07-18 00:00:[address] [facility] HPV9 2018-07-18 00:00:[address] [facility] HPV 2018-07-18 00:00:[address] [facility] HPV9 2018-07-18 00:00:00 Completed [facility] HPV 2018-07-18 00:00:[address] [facility] HPV9 2018-07-18 00:00:00 Completed [facility] HPV 2018-07-18 00:00:00 Completed HPV9 2018-07-18 00:00:00 Completed [facility] Influenza, seasonal, inj Influenza, seasonal, inj 2017-11-21 00:00:00 Completed [facility] HPV 2015-05-22 00:00:00 Completed [facility] TDAP (ADACEL) VACCINE 2015-05-22 00:00:00 Completed [facility] HPV9 2015-05-22 00:00:00 Completed [facility] Meningococcal Polysaccharide (groups A, C, Y and W-135) conjugate vaccine (MCV4P) 2015-05-22 00:00:00 Completed [facility] HPV 2015-05-22 00:00:00 Completed [facility] TDAP (ADACEL) VACCINE 2015-05-22 00:00:00 Completed [facility] HPV9 2015-05-22 00:00:00 Completed [facility] Meningococcal Polysaccharide (groups A, C, Y and W-135) conjugate vaccine (MCV4P) 2015-05-22 00:00:00 Completed [facility] HPV 2015-05-22 00:00:00 Completed [facility] TDAP (ADACEL) VACCINE 2015-05-22 00:00:00 Completed [facility] HPV9 2015-05-22 00:00:00 Completed [facility] Meningococcal Polysaccharide (groups A, C, Y and W-135) conjugate vaccine (MCV4P) 2015-05-22 00:00:00 Completed [facility] HPV 2015-05-22 00:00:00 Completed [facility] TDAP (ADACEL) VACCINE 2015-05-22 00:00:00 Completed [facility] HPV9 2015-05-22 00:00:00 Completed [facility] Meningococcal Polysaccharide (groups A, C, Y and W-135) conjugate vaccine (MCV4P) 2015-05-22 00:00:00 Completed [facility] HPV 2015-05-22 00:00:00 Completed [facility] TDAP (ADACEL) VACCINE 2015-05-22 00:00:00 Completed [facility] HPV9 2015-05-22 00:00:00 Completed [facility] Meningococcal Polysaccharide (groups A, C, Y and W-135) conjugate vaccine (MCV4P) 2015-05-22 00:00:00 Completed [facility] HPV 2015-05-22 00:00:00 Completed [facility] TDAP (ADACEL) VACCINE 2015-05-22 00:00:00 Completed [facility] HPV9 2015-05-22 00:00:00 Completed [facility] Meningococcal Polysaccharide (groups A, C, Y and W-135) conjugate vaccine (MCV4P) 2015-05-22 00:00:00 Completed [facility] HPV 2015-05-22 00:00:00 Completed [facility] TDAP (ADACEL) VACCINE 2015-05-22 00:00:00 Completed [facility] HPV9 2015-05-22 00:00:00 Completed [facility] Meningococcal Polysaccharide (groups A, C, Y and W-135) conjugate vaccine (MCV4P) 2015-05-22 00:00:00 Completed [facility] HPV 2015-05-22 00:00:00 Completed [facility] TDAP (ADACEL) VACCINE 2015-05-22 00:00:00 Completed [facility] HPV9 2015-05-22 00:00:00 Completed [facility] Meningococcal Polysaccharide (groups A, C, Y and W-135) conjugate vaccine (MCV4P) 2015-05-22 00:00:00 Completed [facility] HPV 2015-05-22 00:00:00 Completed [facility] TDAP (ADACEL) VACCINE 2015-05-22 00:00:00 Completed [facility] HPV9 2015-05-22 00:00:00 Completed [facility] Meningococcal Polysaccharide (groups A, C, Y and W-135) conjugate vaccine (MCV4P) 2015-05-22 00:00:00 Completed [facility] HPV 2015-05-22 00:00:00 Completed [facility] TDAP (ADACEL) VACCINE 2015-05-22 00:00:00 Completed [facility] HPV9 2015-05-22 00:00:00 Completed Meningococcal Polysaccharide (groups A, C, Y and W-135) conjugate vaccine (MCV4P) 2015-05-22 00:00:00 Completed HPV 2015-05-22 00:00:00 Completed TDAP (ADACEL) VACCINE 2015-05-22 00:00:00 Completed [facility] HPV9 2015-05-22 00:00:00 Completed [facility] Meningococcal Polysaccharide (groups A, C, Y and W-135) conjugate vaccine (MCV4P) 2015-05-22 00:00:00 Completed [facility] DTAP 2007-05-08 00:00:00 Completed [facility] HEPATITIS A 2007-05-08 00:00:00 Completed [facility] Polio (IPV/OPV) 2007-05-08 00:00:00 Completed [facility] Proquad (MMR/VARICELLA) 2007-05-08 00:00:00 Completed [facility] DTAP 2007-05-08 00:00:00 Completed [facility] HEPATITIS A 2007-05-08 00:00:00 Completed [facility] Polio (IPV/OPV) 2007-05-08 00:00:00 Completed [facility] Proquad (MMR/VARICELLA) 2007-05-08 00:00:00 Completed [facility] DTAP 2007-05-08 00:00:00 Completed [facility] HEPATITIS A 2007-05-08 00:00:00 Completed [facility] Polio (IPV/OPV) 2007-05-08 00:00:00 Completed [facility] Proquad (MMR/VARICELLA) 2007-05-08 00:00:00 Completed [facility] DTAP 2007-05-08 00:00:00 Completed [facility] HEPATITIS A 2007-05-08 00:00:00 Completed [facility] Polio (IPV/OPV) 2007-05-08 00:00:00 Completed [facility] Proquad (MMR/VARICELLA) 2007-05-08 00:00:00 Completed [facility] DTAP 2007-05-08 00:00:00 Completed [facility] HEPATITIS A 2007-05-08 00:00:00 Completed [facility] Polio (IPV/OPV) 2007-05-08 00:00:00 Completed [facility] Proquad (MMR/VARICELLA) 2007-05-08 00:00:00 Completed [facility] DTAP 2007-05-08 00:00:00 Completed [facility] HEPATITIS A 2007-05-08 00:00:00 Completed [facility] Polio (IPV/OPV) 2007-05-08 00:00:00 Completed [facility] Proquad (MMR/VARICELLA) 2007-05-08 00:00:00 Completed [facility] DTAP 2007-05-08 00:00:00 Completed [facility] HEPATITIS A 2007-05-08 00:00:00 Completed [facility] Polio (IPV/OPV) 2007-05-08 00:00:00 Completed [facility] Proquad (MMR/VARICELLA) 2007-05-08 00:00:00 Completed [facility] DTAP 2007-05-08 00:00:00 Completed [facility] HEPATITIS A 2007-05-08 00:00:00 Completed [facility] Polio (IPV/OPV) 2007-05-08 00:00:00 Completed [facility] Proquad (MMR/VARICELLA) 2007-05-08 00:00:00 Completed [facility] DTAP 2007-05-08 00:00:00 Completed [facility] HEPATITIS A 2007-05-08 00:00:00 Completed [facility] Polio (IPV/OPV) 2007-05-08 00:00:00 Completed [facility] Proquad (MMR/VARICELLA) 2007-05-08 00:00:00 Completed [facility] DTAP 2007-05-08 00:00:00 Completed [facility] HEPATITIS A 2007-05-08 00:00:00 Completed [facility] Polio (IPV/OPV) 2007-05-08 00:00:00 Completed [facility] Proquad (MMR/VARICELLA) 2007-05-08 00:00:00 Completed [facility] DTAP 2007-05-08 00:00:00 Completed HEPATITIS A 2007-05-08 00:00:00 Completed Polio (IPV/OPV) 2007-05-08 00:00:00 Completed Proquad (MMR/VARICELLA) 2007-05-08 00:00:00 Completed DTAP 2006-02-09 00:00:00 Completed [facility] HEPATITIS A 2006-02-09 00:00:00 Completed [facility] Pneumococcal 13 Conjugate, PCV13 (Prevnar 13) 2006-02-09 00:00:00 Completed [facility] DTAP 2006-02-09 00:00:00 Completed [facility] HEPATITIS A 2006-02-09 00:00:00 Completed [facility] Pneumococcal 13 Conjugate, PCV13 (Prevnar 13) 2006-02-09 00:00:00 Completed [facility] DTAP 2006-02-09 00:00:00 Completed [facility] HEPATITIS A 2006-02-09 00:00:00 Completed [facility] Pneumococcal 13 Conjugate, PCV13 (Prevnar 13) 2006-02-09 00:00:00 Completed [facility] DTAP 2006-02-09 00:00:00 Completed [facility] HEPATITIS A 2006-02-09 00:00:00 Completed [facility] Pneumococcal 13 Conjugate, PCV13 (Prevnar 13) 2006-02-09 00:00:00 Completed [facility] DTAP 2006-02-09 00:00:00 Completed [facility] HEPATITIS A 2006-02-09 00:00:00 Completed [facility] Pneumococcal 13 Conjugate, PCV13 (Prevnar 13) 2006-02-09 00:00:00 Completed [facility] DTAP 2006-02-09 00:00:00 Completed [facility] HEPATITIS A 2006-02-09 00:00:00 Completed [facility] Pneumococcal 13 Conjugate, PCV13 (Prevnar 13) 2006-02-09 00:00:00 Completed [facility] DTAP 2006-02-09 00:00:00 Completed [facility] HEPATITIS A 2006-02-09 00:00:00 Completed [facility] Pneumococcal 13 Conjugate, PCV13 (Prevnar 13) 2006-02-09 00:00:00 Completed [facility] DTAP 2006-02-09 00:00:00 Completed [facility] HEPATITIS A 2006-02-09 00:00:00 Completed [facility] Pneumococcal 13 Conjugate, PCV13 (Prevnar 13) 2006-02-09 00:00:00 Completed [facility] DTAP 2006-02-09 00:00:00 Completed [facility] HEPATITIS A 2006-02-09 00:00:00 Completed [facility] Pneumococcal 13 Conjugate, PCV13 (Prevnar 13) 2006-02-09 00:00:00 Completed [facility] DTAP 2006-02-09 00:00:00 Completed [facility] HEPATITIS A 2006-02-09 00:00:00 Completed [facility] Pneumococcal 13 Conjugate, PCV13 (Prevnar 13) 2006-02-09 00:00:00 Completed [facility] DTAP 2006-02-09 00:00:00 Completed HEPATITIS A 2006-02-09 00:00:00 Completed Pneumococcal 13 Conjugate, PCV13 (Prevnar 13) 2006-02-09 00:00:00 Completed DTAP 2005-03-14 00:00:00 Completed [facility] Hep B, Adol or Pedi Dosage 2005-03-14 00:00:00 Completed [facility] DTAP 2005-03-14 00:00:00 Completed [facility] Hep B, Adol or Pedi Dosage 2005-03-14 00:00:00 Completed [facility] DTAP 2005-03-14 00:00:00 Completed [facility] Hep B, Adol or Pedi Dosage 2005-03-14 00:00:00 Completed [facility] DTAP 2005-03-14 00:00:00 Completed [facility] Hep B, Adol or Pedi Dosage 2005-03-14 00:00:00 Completed [facility] DTAP 2005-03-14 00:00:00 Completed [facility] Hep B, Adol or Pedi Dosage 2005-03-14 00:00:00 Completed [facility] DTAP 2005-03-14 00:00:00 Completed [facility] Hep B, Adol or Pedi Dosage 2005-03-14 00:00:00 Completed [facility] DTAP 2005-03-14 00:00:00 Completed [facility] Hep B, Adol or Pedi Dosage 2005-03-14 00:00:00 Completed [facility] DTAP 2005-03-14 00:00:00 Completed [facility] Hep B, Adol or Pedi Dosage 2005-03-14 00:00:00 Completed [facility] DTAP 2005-03-14 00:00:00 Completed [facility] Hep B, Adol or Pedi Dosage 2005-03-14 00:00:00 Completed [facility] DTAP 2005-03-14 00:00:00 Completed [facility] Hep B, Adol or Pedi Dosage 2005-03-14 00:00:00 Completed [facility] DTAP 2005-03-14 00:00:00 Completed Hep B, Adol or Pedi Dosage 2005-03-14 00:00:00 Completed HIB 3 Dose Schedule 2004-08-04 00:00:00 Completed [facility] Polio (IPV/OPV) 2004-08-04 00:00:00 Completed [facility] DTAP 2004-08-04 00:00:00 Completed [facility] HIB 3 Dose Schedule 2004-08-04 00:00:00 Completed [facility] Polio (IPV/OPV) 2004-08-04 00:00:00 Completed [facility] DTAP 2004-08-04 00:00:00 Completed [facility] HIB 3 Dose Schedule 2004-08-04 00:00:00 Completed [facility] Polio (IPV/OPV) 2004-08-04 00:00:00 Completed [facility] DTAP 2004-08-04 00:00:00 Completed HIB 3 Dose Schedule 2004-08-04 00:00:00 Completed Polio (IPV/OPV) 2004-08-04 00:00:00 Completed DTAP 2004-08-04 00:00:00 Completed [facility] HIB 3 Dose Schedule 2004-08-04 00:00:00 Completed [facility] Polio (IPV/OPV) 2004-08-04 00:00:00 Completed [facility] DTAP 2004-08-04 00:00:00 Completed [facility] HIB 3 Dose Schedule 2004-08-04 00:00:00 Completed [facility] Polio (IPV/OPV) 2004-08-04 00:00:00 Completed [facility] DTAP 2004-08-04 00:00:00 Completed [facility] HIB 3 Dose Schedule 2004-08-04 00:00:00 Completed [facility] Polio (IPV/OPV) 2004-08-04 00:00:00 Completed [facility] DTAP 2004-08-04 00:00:00 Completed [facility] HIB 3 Dose Schedule 2004-08-04 00:00:00 Completed [facility] Polio (IPV/OPV) 2004-08-04 00:00:00 Completed [facility] DTAP 2004-08-04 00:00:00 Completed [facility] HIB 3 Dose Schedule 2004-08-04 00:00:00 Completed [facility] Polio (IPV/OPV) 2004-08-04 00:00:00 Completed [facility] DTAP 2004-08-04 00:00:00 Completed [facility] HIB 3 Dose Schedule 2004-08-04 00:00:00 Completed [facility] Polio (IPV/OPV) 2004-08-04 00:00:00 Completed [facility] DTAP 2004-08-04 00:00:00 Completed [facility] HIB 3 Dose Schedule 2004-08-04 00:00:00 Completed [facility] Polio (IPV/OPV) 2004-08-04 00:00:00 Completed [facility] DTAP 2004-08-04 00:00:00 Completed [facility] DTAP 2003-11-20 00:00:00 Completed [facility] HIB 3 Dose Schedule 2003-11-20 00:00:00 Completed [facility] Hep B, Adol or Pedi Dosage 2003-11-20 00:00:00 Completed [facility] MMR 2003-11-20 00:00:00 Completed [facility] Polio (IPV/OPV) 2003-11-20 00:00:00 Completed [facility] Varicella (varivax)(chicken pox) 2003-11-20 00:00:00 Completed [facility] DTAP 2003-11-20 00:00:00 Completed [facility] HIB 3 Dose Schedule 2003-11-20 00:00:00 Completed [facility] Hep B, Adol or Pedi Dosage 2003-11-20 00:00:00 Completed [facility] MMR 2003-11-20 00:00:00 Completed [facility] Polio (IPV/OPV) 2003-11-20 00:00:00 Completed [facility] Varicella (varivax)(chicken pox) 2003-11-20 00:00:00 Completed [facility] DTAP 2003-11-20 00:00:00 Completed [facility] HIB 3 Dose Schedule 2003-11-20 00:00:00 Completed [facility] Hep B, Adol or Pedi Dosage 2003-11-20 00:00:00 Completed [facility] MMR 2003-11-20 00:00:00 Completed [facility] Polio (IPV/OPV) 2003-11-20 00:00:00 Completed [facility] Varicella (varivax)(chicken pox) 2003-11-20 00:00:00 Completed [facility] DTAP 2003-11-20 00:00:00 Completed [facility] HIB 3 Dose Schedule 2003-11-20 00:00:00 Completed [facility] Hep B, Adol or Pedi Dosage 2003-11-20 00:00:00 Completed [facility] MMR 2003-11-20 00:00:00 Completed [facility] Polio (IPV/OPV) 2003-11-20 00:00:00 Completed [facility] Varicella (varivax)(chicken pox) 2003-11-20 00:00:00 Completed [facility] DTAP 2003-11-20 00:00:00 Completed [facility] HIB 3 Dose Schedule 2003-11-20 00:00:00 Completed [facility] Hep B, Adol or Pedi Dosage 2003-11-20 00:00:00 Completed [facility] MMR 2003-11-20 00:00:00 Completed [facility] Polio (IPV/OPV) 2003-11-20 00:00:00 Completed [facility] Varicella (varivax)(chicken pox) 2003-11-20 00:00:00 Completed [facility] DTAP 2003-11-20 00:00:00 Completed [facility] HIB 3 Dose Schedule 2003-11-20 00:00:00 Completed [facility] Hep B, Adol or Pedi Dosage 2003-11-20 00:00:00 Completed [facility] MMR 2003-11-20 00:00:00 Completed [facility] Polio (IPV/OPV) 2003-11-20 00:00:00 Completed [facility] Varicella (varivax)(chicken pox) 2003-11-20 00:00:00 Completed [facility] DTAP 2003-11-20 00:00:00 Completed [facility] HIB 3 Dose Schedule 2003-11-20 00:00:00 Completed [facility] Hep B, Adol or Pedi Dosage 2003-11-20 00:00:00 Completed [facility] MMR 2003-11-20 00:00:00 Completed [facility] Polio (IPV/OPV) 2003-11-20 00:00:00 Completed [facility] Varicella (varivax)(chicken pox) 2003-11-20 00:00:00 Completed [facility] DTAP 2003-11-20 00:00:00 Completed [facility] HIB 3 Dose Schedule 2003-11-20 00:00:00 Completed [facility] Hep B, Adol or Pedi Dosage 2003-11-20 00:00:00 Completed [facility] MMR 2003-11-20 00:00:00 Completed [facility] Polio (IPV/OPV) 2003-11-20 00:00:00 Completed [facility] Varicella (varivax)(chicken pox) 2003-11-20 00:00:00 Completed [facility] DTAP 2003-11-20 00:00:00 Completed [facility] HIB 3 Dose Schedule 2003-11-20 00:00:00 Completed [facility] Hep B, Adol or Pedi Dosage 2003-11-20 00:00:00 Completed [facility] MMR 2003-11-20 00:00:00 Completed [facility] Polio (IPV/OPV) 2003-11-20 00:00:00 Completed [facility] Varicella (varivax)(chicken pox) 2003-11-20 00:00:00 Completed [facility] DTAP 2003-11-20 00:00:00 Completed [facility] HIB 3 Dose Schedule 2003-11-20 00:00:00 Completed [facility] Hep B, Adol or Pedi Dosage 2003-11-20 00:00:00 Completed [facility] MMR 2003-11-20 00:00:00 Completed [facility] Polio (IPV/OPV) 2003-11-20 00:00:00 Completed [facility] Varicella (varivax)(chicken pox) 2003-11-20 00:00:00 Completed [facility] DTAP 2003-11-20 00:00:00 Completed [facility] HIB 3 Dose Schedule 2003-11-20 00:00:00 Completed Hep B, Adol or Pedi Dosage 2003-11-20 00:00:00 Completed MMR 2003-11-20 00:00:00 Completed Polio (IPV/OPV) 2003-11-20 00:00:00 Completed Varicella (varivax)(chicken pox) 2003-11-20 00:00:00 Completed Hep B, Adol or Pedi Dosage 2003-02-25 00:00:00 Completed [facility] Polio (IPV/OPV) 2003-02-25 00:00:00 Completed [facility] Hep B, Adol or Pedi Dosage 2003-02-25 00:00:00 Completed [facility] Polio (IPV/OPV) 2003-02-25 00:00:00 Completed [facility] Hep B, Adol or Pedi Dosage 2003-02-25 00:00:00 Completed [facility] Polio (IPV/OPV) 2003-02-25 00:00:00 Completed [facility] Hep B, Adol or Pedi Dosage 2003-02-25 00:00:00 Completed [facility] Polio (IPV/OPV) 2003-02-25 00:00:00 Completed [facility] Hep B, Adol or Pedi Dosage 2003-02-25 00:00:00 Completed [facility] Polio (IPV/OPV) 2003-02-25 00:00:00 Completed [facility] Hep B, Adol or Pedi Dosage 2003-02-25 00:00:00 Completed [facility] Polio (IPV/OPV) 2003-02-25 00:00:00 Completed [facility] Hep B, Adol or Pedi Dosage 2003-02-25 00:00:00 Completed [facility] Polio (IPV/OPV) 2003-02-25 00:00:00 Completed [facility] Hep B, Adol or Pedi Dosage 2003-02-25 00:00:00 Completed [facility] Polio (IPV/OPV) 2003-02-25 00:00:00 Completed [facility] Hep B, Adol or Pedi Dosage 2003-02-25 00:00:00 Completed [facility] Polio (IPV/OPV) 2003-02-25 00:00:00 Completed [facility] Hep B, Adol or Pedi Dosage 2003-02-25 00:00:00 Completed [facility] Polio (IPV/OPV) 2003-02-25 00:00:00 Completed [facility] Hep B, Adol or Pedi Dosage 2003-02-25 00:00:00 Completed Polio (IPV/OPV) 2003-02-25 00:00:00 Completed Hep B, Adol or Pedi Dosage 2002 00:00:00 Completed [facility] Hep B, Adol or Pedi Dosage 2002 00:00:00 Completed [facility] Hep B, Adol or Pedi Dosage 2002 00:00:00 Completed [facility] Hep B, Adol or Pedi Dosage 2002 00:00:00 Completed [facility] Hep B, Adol or Pedi Dosage 2002 00:00:00 Completed [facility] Hep B, Adol or Pedi Dosage 2002 00:00:00 Completed [facility] Hep B, Adol or Pedi Dosage 2002 00:00:00 Completed [facility] Hep B, Adol or Pedi Dosage 2002 00:00:00 Completed [facility] Hep B, Adol or Pedi Dosage 2002 00:00:00 Completed [facility] Hep B, Adol or Pedi Dosage 2002 00:00:00 Completed [facility] Hep B, Adol or Pedi Dosage 2002 00:00:00 Completed Vital Signs Vital Name Observation Time Observation Value Comments S ource Systolic blood pressure 2025-01-08 16:14:00 111 mm[Hg] [facility] Diastolic blood pressure 2025-01-08 16:14:00 70 mm[Hg] [facility] Heart rate 2025-01-08 16:14:00 80 /min [facility] Body temperature 2025-01-08 16:14:00 37.06 [facility] Respiratory rate 2025-01-08 16:14:00 18 /min [facility] Body height 2025-01-08 16:14:00 162.6 cm [facility] Body weight 2025-01-08 16:14:00 106.187 kg [facility] BMI 2025-01-08 16:14:00 40.18 kg/m2 [facility] Systolic blood pressure 2024-12-11 16:33:00 95 mm[Hg] [facility] Diastolic blood pressure 2024-12-11 16:33:00 66 mm[Hg] [facility] Heart rate 2024-12-11 16:33:00 81 /min [facility] Body temperature 2024-12-11 16:33:00 36.5 Senait [facility] Respiratory rate 2024-12-11 16:33:00 17 /min [facility] Body height 2024-12-11 16:33:00 162.6 cm [facility] Body weight 2024-12-11 16:33:00 104.917 kg [facility] BMI 2024-12-11 16:33:00 39.70 kg/m2 [facility] Systolic blood pressure 2024-11-13 17:00:00 137 mm[Hg] [facility] Diastolic blood pressure 2024-11-13 17:00:00 76 mm[Hg] [facility] Heart rate 2024-11-13 17:00:00 86 /min [facility] Body temperature 2024-11-13 17:00:00 36 Senait [facility] Respiratory rate 2024-11-13 17:00:00 18 /min [facility] Body height 2024-11-13 17:00:00 162.6 cm [facility] Body weight 2024-11-13 17:00:00 104.554 kg [facility] BMI 2024-11-13 17:00:00 39.57 kg/m2 [facility] Systolic blood pressure 2024-10-26 15:43:00 114 mm[Hg] [facility] Diastolic blood pressure 2024-10-26 15:43:00 82 mm[Hg] [facility] Heart rate 2024-10-26 15:43:00 87 /min [facility] Body temperature 2024-10-26 15:43:00 36.72 Senait [facility] Respiratory rate 2024-10-26 15:43:00 21 /min [facility] Body height 2024-10-26 15:43:00 162.6 cm [facility] Body weight 2024-10-26 15:43:00 104.781 kg [facility] BMI 2024-10-26 15:43:00 39.65 kg/m2 [facility] Oxygen saturation in Arterial blood by Pulse oximetry 2024-10-26 15:43:00 99 /min [facility] Systolic blood pressure 2024-10-24 21:19:00 127 mm[Hg] [facility] Diastolic blood pressure 2024-10-24 21:19:00 70 mm[Hg] [facility] Heart rate 2024-10-24 21:19:00 86 /min [facility] Body temperature 2024-10-24 21:19:00 36.17 [facility] Respiratory rate 2024-10-24 21:19:00 16 /min [facility] Body height 2024-10-24 21:19:00 165.1 cm [facility] Body weight 2024-10-24 21:19:00 105.235 kg [facility] BMI 2024-10-24 21:19:00 38.61 kg/m2 [facility] Systolic blood pressure 2024-10-16 22:01:00 119 mm[Hg] [facility] Diastolic blood pressure 2024-10-16 22:01:00 70 mm[Hg] [facility] Heart rate 2024-10-16 22:01:00 83 /min [facility] Body temperature 2024-10-16 22:01:00 36.5 Senait [facility] Respiratory rate 2024-10-16 22:01:00 17 /min [facility] Body height 2024-10-16 22:01:00 165.1 cm [facility] Body weight 2024-10-16 22:01:00 107.548 kg [facility] BMI 2024-10-16 22:01:00 39.46 kg/m2 [facility] Systolic blood pressure 2024-10-14 21:00:00 114 mm[Hg] [facility] Diastolic blood pressure 2024-10-14 21:00:00 87 mm[Hg] [facility] Heart rate 2024-10-14 21:00:00 76 /min [facility] Body temperature 2024-10-14 21:00:00 37.22 Senait [facility] Respiratory rate 2024-10-14 21:00:00 18 /min [facility] Oxygen saturation in Arterial blood by Pulse oximetry 2024-10-14 21:00:00 97 /min [facility] Body height 2024-10-14 17:36:00 165.1 cm [facility] Body weight 2024-10-14 17:36:00 108.863 kg [facility] BMI 2024-10-14 17:36:00 39.94 kg/m2 [facility] Systolic blood pressure 2024-09-18 20:46:00 120 mm[Hg] [facility] Diastolic blood pressure 2024-09-18 20:46:00 71 mm[Hg] [facility] Heart rate 2024-09-18 20:46:00 86 /min [facility] Body temperature 2024-09-18 20:46:00 37.33 Senait [facility] Respiratory rate 2024-09-18 20:46:00 18 /min [facility] Body height 2024-09-18 20:46:00 162.6 cm [facility] Body weight 2024-09-18 20:46:00 108.636 kg [facility] BMI 2024-09-18 20:46:00 41.11 kg/m2 [facility] Systolic blood pressure 2023-05-23 19:12:00 122 mm[Hg] [facility] Diastolic blood pressure 2023-05-23 19:12:00 98 mm[Hg] [facility] Heart rate 2023-05-23 19:12:00 68 /min [facility] Body temperature 2023-05-23 19:12:00 36.61 Senait [facility] Respiratory rate 2023-05-23 19:12:00 18 /min [facility] Body height 2023-05-23 19:12:00 162.6 cm [facility] Body weight 2023-05-23 19:12:00 95.255 kg [facility] BMI 2023-05-23 19:12:00 36.05 kg/m2 [facility] Oxygen saturation in Arterial blood by Pulse oximetry 2023-05-23 19:12:00 99 /min [facility] Systolic blood pressure 2023-02-24 00:41:00 112 mm[Hg] [facility] Diastolic blood pressure 2023-02-24 00:41:00 74 mm[Hg] [facility] Heart rate 2023-02-24 00:41:00 84 /min [facility] Body temperature 2023-02-24 00:41:00 36.94 Senait [facility] Respiratory rate 2023-02-24 00:41:00 20 /min [facility] Oxygen saturation in Arterial blood by Pulse oximetry 2023-02-24 00:41:00 98 /min [facility] Body height 2023-02-23 22:43:00 162.6 cm [facility] Body weight 2023-02-23 22:43:00 95.255 kg [facility] BMI 2023-02-23 22:43:00 36.05 kg/m2 [facility] Systolic blood pressure 2021-10-19 04:27:00 121 mm[Hg] [facility] Diastolic blood pressure 2021-10-19 04:27:00 79 mm[Hg] [facility] Heart rate 2021-10-19 04:27:00 107 /min [facility] Body temperature 2021-10-19 04:27:00 38.72 Senait [facility] Respiratory rate 2021-10-19 04:27:00 18 /min [facility] Body height 2021-10-19 04:27:00 160 cm [facility] Body weight 2021-10-19 04:27:00 90.719 kg [facility] BMI 2021-10-19 04:27:00 35.43 kg/m2 [facility] Body mass index (BMI) [Percentile] Per age and sex 2021-10-19 04:27:00 97.54 % [facility] Oxygen saturation in Arterial blood by Pulse oximetry 2021-10-19 04:27:00 99 /min [facility] [facility] Systolic blood pressure 2021-05-22 10:55:00 118 mm[Hg] [facility] Diastolic blood pressure 2021-05-22 10:55:00 70 mm[Hg] [facility] Heart rate 2021-05-22 10:55:00 105 /min [facility] Body temperature 2021-05-22 10:55:00 38.17 Senait [facility] Respiratory rate 2021-05-22 10:55:00 18 /min [facility] Body height 2021-05-22 10:55:00 162.6 cm [facility] Body weight 2021-05-22 10:55:00 97.523 kg [facility] BMI 2021-05-22 10:55:00 36.90 kg/m2 [facility] Oxygen saturation in Arterial blood by Pulse oximetry 2021-05-22 10:55:00 97 /min [facility] Systolic blood pressure 2021-03-12 12:22:00 102 mm[Hg] [facility] Diastolic blood pressure 2021-03-12 12:22:00 57 mm[Hg] [facility] Heart rate 2021-03-12 12:22:00 69 /min [facility] Body temperature 2021-03-12 12:22:00 37.06 Senait [facility] Respiratory rate 2021-03-12 12:22:00 18 /min [facility] Oxygen saturation in Arterial blood by Pulse oximetry 2021-03-12 12:22:00 97 /min [facility] Body height 2021-03-11 20:55:00 165.1 cm [facility] Body weight 2021-03-11 20:55:00 105.461 kg [facility] BMI 2021-03-11 20:55:00 38.69 kg/m2 [facility] Systolic blood pressure 2021-03-06 05:21:03 135 mm[Hg] [facility] Diastolic blood pressure 2021-03-06 05:21:03 82 mm[Hg] [facility] Heart rate 2021-03-06 05:21:03 96 /min [facility] Body temperature 2021-03-06 05:21:03 37.22 Senait [facility] Respiratory rate 2021-03-06 05:21:03 20 /min [facility] Oxygen saturation in Arterial blood by Pulse oximetry 2021-03-06 05:21:03 98 /min [facility] Body height 2021-03-06 03:22:00 165.1 cm [facility] Body weight 2021-03-06 03:22:00 90.719 kg [facility] BMI 2021-03-06 03:22:00 33.28 kg/m2 [facility] Heart rate 2021-02-25 02:31:00 108 /min [facility] Systolic blood pressure 2021-02-25 01:21:00 123 mm[Hg] [facility] Diastolic blood pressure 2021-02-25 01:21:00 82 mm[Hg] [facility] Body temperature 2021-02-25 01:21:00 37.61 Senait [facility] Respiratory rate 2021-02-25 01:21:00 22 /min [facility] Body weight 2021-02-25 01:21:00 90.719 kg [facility] Oxygen saturation in Arterial blood by Pulse oximetry 2021-02-25 01:21:00 99 /min [facility] Systolic blood pressure 2019-10-22 15:39:00 113 mm[Hg] [facility] Diastolic blood pressure 2019-10-22 15:39:00 74 mm[Hg] [facility] Heart rate 2019-10-22 15:39:00 82 /min [facility] Body temperature 2019-10-22 15:39:00 36.83 Senait [facility] Respiratory rate 2019-10-22 15:39:00 16 /min [facility] Body height 2019-10-22 15:39:00 160 cm [facility] Body weight 2019-10-22 15:39:00 103.023 kg [facility] BMI 2019-10-22 15:39:00 40.23 kg/m2 [facility] Height Measured 2024-10-28 09:53:00 63.00 inches Marco Antonioteresa Goins Body Temperature 2024-10-28 09:53:00 97.50 degrees Marco [...] Measured 2017-11-13 16:56:00 185.60 pounds Marco Antonio Goins Height Measured 2017-11-13 16:56:00 63.52 inches Marco Antonio Goins Body Temperature 2017-11-13 16:56:00 98.80 degrees Marco Antonio Goins Heart Rate 2017-11-13 16:56:00 87.00 /min Mary Goins Respiratory Rate 2017-11-13 16:56:00 18.00 /min Marco Antonio Goins Procedures Procedure Date / Time Performed Performing Clinician Source POCT URINALYSIS 2025-01-08 16:16:00 Nubia Hanley [facility] POCT URINALYSIS 2024-12-11 00:00:00 Nubia Hanley [facility] POCT URINALYSIS 2024-11-13 17:03:00 Nubia Hanley [facility] NIPT - NON-INVASIVE TEST RESULTS 2024-11-04 12:56:07 Doctor Unassigned, [place] [facility] NIPT - NON-INVASIVE TEST RESULTS 2024-10-31 22:45:35 Doctor Unassigned, [place] [facility] POCT URINALYSIS 2024-10-26 16:04:[address] [facility] FIRST TRIMESTER ULTRASOUND 2024-10-25 20:54:00 Nubia Hanley [facility] POCT URINALYSIS 2024-10-24 21:27:00 Nubia Hanley [facility] POCT URINALYSIS 2024-10-16 00:00:00 Nubia Hanley [facility] US FIRST TRIMESTER LESS THAN 14 WEEKS WITH TRANSVAGINAL 2024-10-14 19:24:18 Fabrizio Avalos [facility] COMP. METABOLIC PANEL (26502) 2024-10-14 18:34:00 Fabrizio Avalos [facility] TOTAL BETA HCG ASSAY 2024-10-14 18:34:00 Rehan Avalos [facility] CBC WITH DIFF 2024-10-14 18:34:00 Fabrizio Avalos [facility] URINALYSIS 2024-10-14 18:31:00 Fabrizio Avalos [facility] POCT TEST 2024-10-14 18:31:00 Maxwell Avalos [facility] CBC WITH DIFF 2024-09-18 22:18:00 Nubia Hanley [facility] GLYCOSYLATED HEMOGLOBIN (A1C) 2024-09-18 22:18:00 Nubia Hanley [facility] RUBELLA SCREEN IGG 2024-09-18 22:18:00 Jose David Hanley [facility] VZV ANTIBODY SCREEN 2024-09-18 22:18:00 Ilya Hanley [facility] HEPATITIS B SURFACE ANTIGEN 2024-09-18 22:18:00 Nubia Hanley [facility] HCV ANTIBODY 2024-09-18 22:18:00 Nubia Hanley [facility] HB ABO GROUPING 2024-09-18 22:18:00 Nubia Hanley [facility] HIV 1/2 AG-AB WITH REFLEX 2024-09-18 22:18:00 Nubia Hanley [facility] PAP SMEAR-LIQUID BASED-CP 2024-09-18 22:18:00 Nubia Hanley [facility] SYPHILIS IGG/IGM 2024-09-18 22:18:00 Amos Hanley [facility] FLU VACC ([id number]), 6 MO-64 YRS, .5ML, IM, TIV (FLUCELVAX) 2024-09-18 20:54:43 Nubia Hanley [facility] POCT URINALYSIS W/O SPECIFIC GRAVITY 2024-09-18 20:38:00 Nubia Hanley [facility] POCT TEST 2024-09-18 20:37:00 Ilya Hanley [facility] POCT TEST 2023-05-23 22:15:00 Tamiko Reynaga [facility] LIPASE 2023-05-23 20:07:00 Jennifer Reynaga [facility] COMP. METABOLIC PANEL (99437) 2023-05-23 20:07:00 Jennifer Reynaga [facility] CBC WITH DIFF 2023-05-23 20:07:00 Jennifer Reynaga [facility] URINALYSIS 2023-05-23 20:07:00 [facility] ASSIGNMENT OF BENEFITS 2023-05-23 19:45:58 Docto r Unassigned, [place] [facility] ASSIGNMENT OF BENEFITS 2023-02-23 23:29:30 Docto r Unassigned, [place] [facility] RAPID STREP SCREEN FOR GROUP A 2023-02-23 23:18:00 Thelma Garcia [facility] RAPID INFLUENZA A/B 2023-02-23 23:18:00 Jatinder Garcia [facility] COVID-19 (ID NOW RAPID TESTING) 2023-02-23 23:18:00 Thelma Garcia [facility] CONSENT/REFUSAL FOR DIAGNOSIS AND TREATMENT 2023-02-23 22:27:31 Doctor Unassigned, [place] [facility] RAPID INFLUENZA A/B 2021-10-19 04:38:00 Micha Vanessa [facility] NOTICE OF PRIVACY PRACTICES 2021-10-19 04:25:24 Doctor Unassigned, [place] [facility] CONSENT/REFUSAL FOR DIAGNOSIS AND TREATMENT 2021-10-19 04:25:07 Doctor Unassigned, [place] [facility] URINALYSIS 2021-05-22 11:31:00 Suzette Michele [facility] POCT TEST 2021-05-22 11:31:00 Suzette Michele [facility] COVID-19 (ID NOW RAPID TESTING) 2021-05-22 11:17:00 Suzette Michele [facility] CONSENT/REFUSAL FOR DIAGNOSIS AND TREATMENT 2021-05-22 10:19:37 Doctor Unassigned, [place] [facility] MAGNESIUM 2021-03-12 09:44:00 Anatoly Valdovinos [facility] BASIC METABOLIC PANEL (NA, K, CL, CO2, GLUCOSE, BUN, CREATININE, CA) 2021-03-12 09:44:00 Anatoly Valdovinos [facility] CBC WITH DIFF 2021-03-12 09:44:00 Anatoly Valdovinos [facility] COVID-19 (ID NOW RAPID TESTING) 2021-03-11 17:06:00 Solange Ford [facility] BLOOD CULTURE SCREEN 2021-03-11 17:05:00 Ashok Ford [facility] URINE CULTURE 2021-03-11 17:05:00 Solange Ford [facility] LACTIC ACID WHOLE BLOOD 2021-03-11 17:04:00 Do adriane Ford [facility] BLOOD CULTURE SCREEN 2021-03-11 16:35:00 Ashok Ford [facility] CT ABDOMEN PELVIS W CONTRAST 2021-03-11 15:56:47 Solange Ford [facility] LIPASE 2021-03-11 15:07:00 Solange Ford [facility] COMP. METABOLIC PANEL (23536) 2021-03-11 15:07[facility]00 [facility]FF 2021-03-11 15:07:00 Solange Ford [facility] URINALYSIS 2021-03-11 15:07:00 Solange Ford [facility] POCT TEST 2021-03-11 15:06:00 Tatiana Ford [facility] NOTICE OF PRIVACY PRACTICES 2021-03-11 14:51:22 Doctor Unassigned, [place] [facility] CONSENT/REFUSAL FOR DIAGNOSIS AND TREATMENT 2021-03-11 14:50:52 Doctor Unassigned, [place] [facility] XR CHEST 2 VW 2021-03-06 04:04:44 Jennifer Reynaga [facility] NOTICE OF PRIVACY PRACTICES 2021-03-06 03:15:08 Doctor Unassigned, [place] [facility] CONSENT/REFUSAL FOR DIAGNOSIS AND TREATMENT 2021-03-06 03:14:52 Doctor Unassigned, [place] [facility] COVID-19 (ID NOW RAPID TESTING) 2021-02-25 01:56:00 Micha Vanessa [facility] NOTICE OF PRIVACY PRACTICES 2021-02-25 01:15:24 Doctor Unassigned, [place] [facility] CONSENT/REFUSAL FOR DIAGNOSIS AND TREATMENT 2021-02-25 01:10:32 Doctor Unassigned, [place] [facility] Encounters Start Date/Time End Date/Time Encounter Type Admission Type Attending [facility] Care Facility Care Department Encounter ID Source 2021-08-08 22:53:54 Emergency [facility] [id number] [facility] 2021-08-08 22:05:35 Emergency [facility] [id number] [facility] 2021-08-08 20:09:33 Emergency [facility] [id number] [facility] 2025-01-28 00:00:00 2025-01-28 14:40:42 Patient Secure Msg Nubia Hanley [facility] ADMINISTRATOR [facility] CHILD [facility] 1.2.840.114 350.1.13.10 4.2.7.2.686 [id number] 107 [id number] [facility] 2025-01-22 00:00:00 2025-01-23 13:29:35 Telephone Nubia Han[facility] 1.2.840.114 350.1.13.10 4.2.7.2.686 [id number] 107 [id number] [facility] 2024-12-18 00:00:00 2025-01-18 18:14:53 Patient Secure Msg Nubia Hanley [facility] 1.2.840.114 350.1.13.10 4.2.7.2.686 [id number] 107 [id number] [facility] 2025-01-08 11:00:00 2025-01-08 11:39:36 Outpatient R NUBIA HANLEY [facility] [id number] [facility] 2025-01-08 11:00:00 2025-01-08 11:39:36 Routine Visit Nubia Hanley Reyna [facility] CENTER ADMINISTRATOR [facility] CHILD [facility] 1.2840.114 350.1.13.10 4.2.7.2.686 [id number] 107 [id number] [facility] 2024-12-31 00:00:00 2024-12-31 15:50:08 Patient Secure Msg Nubia Hanley [facility]ENTER ADMINISTRATOR [facility] CHILD [facility] 1.20.114 350.1.13.10 4.2.7.2.686 [id number] 107 [id number] [facility] 2024-12-24 13:00:00 2024-12-24 14:21:53 Outpatient P JONO PHOENIX [facility] [id number] [facility] 2024-12-11 10:30:00 2024-12-11 11:01:16 Outpatient R JOSE DAVID HANLEYOLA [facility] [id number] [facility] 2024-12-11 10:30:00 2024-12-11 11:01:16 Routine Visit Nubia Hanley Reyna [facility] CENTER ADMINISTRATOR [facility] CHILD [facility] 1.0.114 350.1.13.10 4.2.7.2.686 [id number] 107 [id number] [facility] 2024-10-25 00:00:00 2024-11-30 18:20:39 Patient Secure Msg Nubia Hanley [facility]ENTER ADMINISTRATOR [facility] CHILD [facility] 1.2840.114 350.1.13.10 4.2.7.2.686 [id number] 107 [id number] [facility] 2024-10-28 00:00:00 2024-11-30 18:18:55 Patient Secure Msg Doctor Unassigned, [place] Doctor Unassigned, [place] [facility] 1.2.840.114 350.1.13.10 4.2.7.2.686 [id number] [facility] 2024-10-29 00:00:00 2024-11-30 18:18:27 Patient Secure Msg Doctor Unassigned, [place] Doctor Unassigned, [place] [facility] ([facility] 1.2.840.114 350.1.13.10 4.2.7.2.686 [id number] [facility] 2024-10-21 00:00:00 2024-11-23 18:20:21 Patient Secure Msg Nubia Hanley [facility] ADMINISTRATOR [facility] 1.2.840.114 350.1.13.10 4.2.7.2.686 [id number] 107 [id number] [facility] 2024-10-21 00:00:00 2024-11-23 18:19:50 Patient Secure Msg Doctor Unassigned, [place] Doctor Unassigned, [place] [facility] ([facility] 1.2.840.114 350.1.13.10 4.2.7.2.686 [id number] [facility] 2024-10-31 00:00:00 2024-11-23 06:15:59 Orders Only Doctor Unassigned, [place] Doctor Unassigned, [place] [facility] ([facility] 1.2.840.114 350.1.13.10 4.2.7.2.686 [id number] [facility] 2024-11-04 00:00:00 2024-11-23 06:14:51 Orders Only Doctor Unassigned, [place] Doctor Unassigned, [place] [facility] ([facility] 1.2.840.114 350.1.13.10 4.2.7.2.686 [id number] [facility] 2024-10-14 00:00:00 2024-11-16 18:20:21 Patient Secure Msg Nubia Hanley Reyna [facility] CENTER ADMINISTRATOR [facility] 1.2.840.114 350.1.13.10 4.2.7.2.686 [id number] [facility] 2024-11-13 11:00:00 2024-11-13 11:37:25 Outpatient R SHAKIRA NUBIA [facility] [id number] [facility] 2024-11-13 11:00:00 2024-11-13 11:37:25 Routine Visit Jose David Hanleyaquiles Orellana [facility] CENTER ADMINISTRATOR [facility]ILD [facility] 1.2840.114 350.1.13.10 4.2.7.2.686 [id number] [facility] 2024-10-30 00:00:00 2024-10-30 09:02:00 Case Management Ayala Han [facility] CENTER ADMINISTRATOR [facility]ILD [facility] 1.2.840.114 350.1.13.10 4.2.7.2.686 [id number] 107 [id number] [facility] 2024-10-29 00:00:00 2024-10-29 18:02:50 Abstract Nubia Hanley Reyna [facility] CENTER ADMINISTRATOR [facility] CHILD [facility] 1.2.840.114 350.1.13.10 4.2.7.2.686 [id number] 107 [id number] [facility] 2024-10-29 00:00:00 2024-10-29 14:31:22 Nurse Triage Vicki Light Stacy [facility] 1.2.840.114 350.1.13.10 4.2.7.2.686 [id number] [facility] 2024-10-28 00:00:00 2024-10-28 16:57:38 Telephone Faiza Murphy [facility] 1..840.114 350.1.13.10 4.2.7.2.686 [id number] [facility] 2024-10-28 09:39:29 2024-10-28 09:39:29 Outpatient SFA SFA [id number] Marco Antonio Goins 2024-10-28 00:00:00 2024-10-28 00:00:00 Outpatient Visit S[facility] [id number] Marco Antonio Goins 2024-09-19 00:00:00 2024-10-26 18:21:55 Patient Secure Msg Nubia Hanley [facility] CENTER ADMINISTRATOR [facility] 1..840.114 350.1.13.10 4.2.7.2.686 [id number] 107 [id number] [facility] 2024-09-19 00:00:00 2024-10-26 18:21:49 Patient Secure Msg Doctor Unassigned, [place] Doctor Unassigned, [place] [facility] 1..840.114 350.1.13.10 4.2.7.2.686 [id number] [facility] 2024-10-26 09:20:00 2024-10-26 10:44:58 Outpatient R FAIZA MURPHY [facility] [id number] [facility] 2024-10-26 09:20:00 2024-10-26 10:44:58 Urgent Care Faiza Murphy Unknown, Attending [facility] 1..840.114 350.1.13.10 4.2.7.2.686 [id number] [facility] 2024-10-25 14:30:00 2024-10-25 15:09:11 Outpatient R ABI LÓPEZ, ABI VERA [facility] [id number] [facility] 2024-10-25 14:30:00 2024-10-25 15:09:11 [employer]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, Abi Mckeon [facility] CENTER ADMINISTRATOR [facility]ILD [facility] 1..840.114 350.1.13.10 4.2.7.2.686 [id number] [facility] 2024-10-24 15:30:00 2024-10-24 16:16:26 Outpatient R AYALA HAN [facility] [id number] [facility] 2024-10-24 15:30:00 2024-10-24 16:16:26 Routine Visit Nubia Hanley Brenda A [facility] CENTER ADMINISTRATOR [facility]ILD [facility] 1..840.114 350.1.13.10 4.2.7.2.686 [id number] 107 [id number] [facility] 2024-10-24 00:00:00 2024-10-24 11:56:32 Telephone Nubia Hanley [facility] CENTER ADMINISTRATOR [facility]ILD [facility] 1..840.114 350.1.13.10 4.2.7.2.686 [id number] 107 [id number] [facility] 2024-10-16 16:00:00 2024-10-16 16:21:07 Outpatient R NUBIA HANLEY [facility] [id number] [facility] 2024-10-16 16:00:00 2024-10-16 16:21:07 Routine Visit Nubia Hanley [facility] CENTER ADMINISTRATOR [facility] 1..840.114 350.1.13.10 4.2.7.2.686 [id number] [facility] 2024-10-14 11:37:00 2024-10-14 15:05:00 Emergency FABRIZIO LINDER PHILLIP [facility] [id number] [facility] 2024-10-14 11:37:00 2024-10-14 15:05:00 Emergency Fabrizio Avalos [facility] 1.2.840.114 350.1.13.10 4.2.7.2.686 [id number] [facility] 2024-09-19 00:00:00 2024-09-20 07:43:51 Telephone Nubia Hanley [facility] CENTER ADMINISTRATOR [facility]ILD [facility] 1.2.840.114 350.1.13.10 4.2.7.2.686 [id number] [facility] 2024-09-19 00:00:00 2024-09-20 07:36:32 Telephone Nubia Hanley [facility] CENTER ADMINISTRATOR [facility] 1.2.840.114 350.1.13.10 4.2.7.2.686 [id number] 107 [id number] [facility] 2024-09-18 00:00:00 2024-09-19 06:55:10 Patient Secure Msg Nubia Hanley [facility] CENTER ADMINISTRATOR [facility]ILD [facility] 1.2.840.114 350.1.13.10 4.2.7.2.686 [id number] [facility] 2024-09-18 14:30:00 2024-09-18 16:16:56 Initial Visit Nubia Hanley [facility] ADMINISTRATOR [facility] CHILD [facility] 1.2.840.114 350.1.13.10 4.2.7.2.686 [id number] [facility] 2024-09-18 14:00:00 2024-09-18 14:31:28 Outpatient R NUBIA HANLEY [facility] [id number] [facility] 2023-05-23 14:13:00 2023-05-23 18:16:00 Emergency X JENNIFER REYNAGA [facility] [id number] [facility] 2023-05-23 14:13:00 2023-05-23 18:16:00 Emergency Jennifer Reynaga [facility] 1.2.840.114 350.1.13.10 4.2.7.2.686 [id number] [facility] 2023-02-23 17:44:00 2023-02-23 19:46:00 [facility] [id number] [facility] 2023-02-23 17:44:00 2023-02-23 19:46:00 Emergency Thelma Garcia [facility] 1.2.840.114 350.1.13.10 4.2.7.2.686 [id number] [facility] 2021-10-20 00:00:00 2021-10-20 00:00:00 Patient Secure Msg Chuckdianadennise Gissell [facility] CENTER ADMINISTRATOR [facility] 1.2840.114 350.1.13.10 4.2.7.2.686 [id number] [facility] 2021-10-19 00:00:00 2021-10-19 00:00:00 Patient Secure Msg Doctor Unassigned, [place] [facility] 1.2840.114 350.1.13.10 4.2.7.2.686 [id number] [facility] 2021-10-19 00:00:00 2021-10-19 00:00:00 Patient Secure Msg Nubia Hanley [facility] CENTER ADMINISTRATOR [facility] 1.2.840.114 350.1.13.10 4.2.7.2.686 [id number] [facility] 2021-10-18 22:40:00 2021-10-18 23:11:00 Emergency X MICHA VANESSA [facility] ERT [id number] [facility] 2021-10-18 22:40:00 2021-10-18 23:11:00 Emergency Micha Vanessa [facility] 1.2.840.114 350.1.13.10 4.2.7.2.686 [id number] [facility] 2021-05-22 05:58:00 2021-05-22 07:44:00 Emergency Suzette Michele [facility] 1.2.840.114 350.1.13.10 4.2.7.2.686 [id number] [facility] 2021-05-22 05:58:00 2021-05-22 07:44:00 Emergency X SUZETTE MICHELE [facility] ERT [id number] [facility] 2021-05-22 00:00:00 2021-05-22 00:00:00 Orders Only Doctor Unassigned, [place] [facility] 1.2.840.114 350.1.13.10 4.2.7.2.686 [id number] [facility] 2021-03-11 09:58:00 2021-03-12 13:25:00 Emergency Solange Ford Yaman [facility] 1.2.840.114 350.1.13.10 4.2.7.2.686 [id number] [id number] [facility] 2021-03-05 22:26:00 2021-03-06 00:33:00 Emergency Jennifer Reynaga [facility] 1.2.840.114 350.1.13.10 4.2.7.2.686 [id number] [facility] 2021-02-24 20:25:00 2021-02-24 21:57:00 Emergency Micha Vanessa [facility] 1.840.114 350.1.13.10 4.2.7.2.686 [id number] [facility] 2019-10-22 09:07:40 2019-10-22 09:41:44 Nurse Visit Visit, Darryl-Rmchp Nurse Nubia Hanley [facility] CENTER ADMINISTRATOR [facility] 1.2840.114 350.1.13.10 4.2.7.2.686 [id number] [facility] Results Test Description Test Time Test Comments Results Result [facility] [id number] 16:34:00* Test Item Value Reference Range Interpretation Comme [...] U APPEAR (test code = 3267) . [facility] [id number] 17:03:00* Test Item Value Reference Range Interpretation Comme [...] POCT U APPEAR (test code = 3267) [facility] - NON-INVASIVE TEST RESULTS 2024-11-04 12:56:07Ordered by an unspecified provider.[facility] - NON-INVASIVE TEST [id number] 22:45:35 Ordered by an unspecified provider[facility] Ur[facility] W Specific [id number] 16:04:00* Test Item Value Reference Range Interpretation Comme nts POCT U SP GRAV (test code = 3255) 1.020 mg/dl 1.005-1.025 POCT PH U (test code = 3254) 7 mg/dl 5-8 POCT U LEUK EST (test code = 3263) + Negative - Negative POCT U NIT (test code = 3262) Neg Negative - Negati ve POCT U PROT (test code = 3259) trace Negative - Negative POCT U GLU (test code = 3256) norm Negative - Negati ve POCT U KETONE (test code = 3258) Large Negative - Negative POCT U UROBILI (test code = 3260) norm 0.2-1 POCT U BILI (test code = 3261) + Negative - Negative POCT U BLD (test code = 3257) trace Negative - Negati ve POCT U COLOR (test code = 3266) yellow POCT U APPEAR (test code = 3267) clear Lab Interpretation (test cod e = 72721-6) [facility] URINALYS[facility] W SPECIFIC [id number] 21:27:00* Test Item Value Reference Range Interpretation [...] POCT U APPEAR (test code = 3267) [facility] [id number] 22:02:00* Test Item Value Reference Range Interpretation [...] U APPEAR (test code = 3267) . [facility] CenterUS first trimester less than 14 weeks with ymrmjtzoejpv0199-50-30 20:15:24EXAM: US FIRST TRIMESTER LESS THAN 14 WEEKS WITH TRANSVAGINAL HISTORY: 24 years-old Female r/o ectopic RLQ/Back pain. No previous US. LMP = 07/05/2024. Beta-hCG: A beta-hCG has not been collected at the time of dictation.mIU/mL. G/P: 1/0. TECHNIQUE: Survey transabdominal and transvaginal ultrasound imaging andcolor Doppler evaluation of the pelvis was performed. M-mode was used toevaluate the heart. Chief Talent Officer images were obtained. COMPARISON: None FINDINGS: Uterus: [...] visualized.. Cul-de-sac: No free fluid is present. [facility] Beta HCG [id number] 19:47:05* Test Item Value Reference Range Interpretation Comme nts BETA HCG (test code = 7108747144) 84115.00 See_Comment [Automated OnGreen] The system which generated this result transmitted reference range: Non- female and male patients: <5 mIU/mL. The reference range was not used to interpret this result as normal/abnormal. EVERARDO (test code = EVERARDO) Gestational Age ?Range (mIU/mL) 1-10 ?Weeks ?[id number] Weeks ?79893-73841855-34 Weeks ?2678-46373235-45 Weeks ?4151-585397 Biotin has been reported to cause a negative bias, interpret results relative to patient's use of biotin. [facility]. Metabolic Panel (71248)2024-10-14 19:05:41* Test Item Value Reference Range Interpretation Comme nts NA (test code = 1917379047) 137 mmol/L 135-145 K (test code = 7837536573) 3.7 mmol/L 3.5-5.0 CL (test code = 8028578216) 106 mmol/L 98-108 CO2 TOTAL (test code = 1384393707) 25 mmol/L 23-31 AGAP (test code = 3582643328) 6 2-16 BUN (test code = 0147494472) 5 mg/dL 7-23 L GLUCOSE (test code = 4297757728) 87 mg/dL 70-110 CREATININE (test code = 2160-0) 0.46 mg/dL 0.50-1.04 L TOTAL BILI (test code = 9478774865) 0.2 mg/dL 0.1-1.1 CALCIUM (test code = 9962634753) 9.3 mg/dL 8.6-10.6 T PROTEIN (test code = 7510520724) 7.6 g/dL 6.3-8.2 ALBUMIN (test code = 2526328260) 4.3 g/dL 3.5-5.0 ALK PHOS (test code = 0896415743) 51 U/L 34-122 ALTv (test code = 1742-6) 13 U/L 5-35 AST(SGOT) (test code = 1096096004) 14 U/L 13-40 eGFR (test code = 27656-0) 139.0 mL/min/1.73m2 CKD-EPI eGFR (2020). Assuming creatinine has been stable day-to-day for at least three months, the eGFR indicates Category G1 (>= 90 mL/min/1.73 m2) Lab Interpretation (test code = 83347-8) [facility] CenterCb with [id number] 18:58:02* Test Item Value Reference Range Interpretation [...] 35.0 g/dL 31.6-35.1 RDW-SD (test code = 43508-2) 37.1 fL 39.0-49.9 L RDW-CV (test code = 788-0) 12.0 % 12.0-15.5 PLT (test code = 777-3) 244 166-358 MPV (test code = 10013-6) 9.6 fL 9.5-12.9 NRBC/100 WBC (test code = 4089740976) 0.0 0.0-10.0 NRBC x10^3 (test code = 5618183796) See_Comment [Automated messa ge] The system which generated this result transmitted reference range: 10*3/?L. The reference range was not used to interpret this result as normal/abnormal. GRAN MAT (NEUT) % (test code = 770-8) 67.9 % IMM GRAN % (test code = 8807619704) 0.30 % LYMPH % (test code = 736-9) 24.9 % MONO % (test code = 5905-5) 6.0 % EOS % (test code = 713-8) 0.4 % BASO % (test code = 706-2) 0.5 % GRAN MAT x10^3(ANC) (test code = 7538668615) 5.39 10*3/uL 1.88-7.09 IMM GRAN x10^3 (test code = 3759424833) 0.00-0.06 LYMPH x10^3 (test code = 731-0) 1.98 10*3/uL 1.32-3.29 MONO x10^3 (test code = 742-7) 0.48 10*3/uL 0.33-0.92 EOS x10^3 (test code = 711-2) 0.03 10*3/uL 0.03-0.39 BASO x10^3 (test code = 704-7) 0.04 10*3/uL 0.01-0.07 Lab Interpretation (test code = 49510-3) [facility] [id number] 18:31:00* Test Item Value Reference Range Interpretation Comme nts POCT PREG (test code = 1605) Positive On board controls acceptable with C Line (test code = 3574) Yes POCT PREG LOT # (test code = 3575) HCG 0000 [id number] POCT PREG TEST DATE (test code = 3576) 09/23/2025 Lab Interpretation (test cod e = 12867-2) [facility] w/o Specific [id number] 20:38:00* Test Item Value Reference Range Interpretation [...] = 3257) 50 Negative - Negati ve [facility] [id number] 20:37:00* Test Item Value Reference Range Interpretation Comme nts POCT PREG (test code = 1605) Positive On board controls acceptable with C Line (test code = 3574) Yes POCT PREG LOT # (test code = 3575) POCT PREG TEST DATE ( test code = 3576) [facility] [id number] 22:15:00* Test Item Value Reference Range Interpretation Comme nts POCT PREG (test code = 1605) Negative On board controls acceptable with C Line (test code = 3574) Yes POCT PREG LOT # (test code = 3575) HCG [id number] POCT PREG TEST DATE (test code = 3576) 10/11/2024 Lab Interpretation (test cod e = 22156-1) [facility] (ID NOW RAPID TESTING)2021-05-22 12:21:27* Test Item Value Reference Range Interpretation Comme nts SARS-CoV-2 Rapid ID NOW (test code = 70820-6) Positive Not Detected A EVERARDO (test code = EVERARDO) ID NOW COVID-19 As say is an isothermal nucleic acid amplification test intended for the qualitative detection of nucleic acid from SARS-CoV-2 viral RNA in nasopharyngeal (RACE BOARD ATTENDANT) specimens. It is used under Emergency Use [...] clinically indicated. Lab Interpretation (test code = 22822-6) [facility]normal [facility]IN[facility]IS2021-08-14 12:05:50* Test Item Value Reference Range Interpretation Comme nts APPEARANCE (test code = 1654112713) Clear Clear COLOR (test code = 4635356651) Yellow Yellow PH (test code = 3120176884) 4.8-8.0 SP GRAVITY (test code = 3268990105) 1.003-1.030 GLU U QUAL (test code = 4653875769) Normal Normal BLOOD (test code = 3669263304) 1+ Negative A KETONES (test code = 9487785532) Negative Negative PROTEIN (test code = 2887-8) Negative Negative UROBILIN (test code = 4294489406) Normal Normal BILIRUBIN (test code = 2064449047) Negative Negative NITRITE (test code = 4962251728) Negative Negative LEUK EMILIANO (test code = 5039394651) Negative Negative RBC/HPF (test code = 7999579623) See_Comment [Automated [employer]sa ge] The system which generated this result transmitted reference range: 0 - 3 HPF. The reference range was not used to interpret this result as normal/abnormal. WBC/HPF (test code = 0887896037) See_Comment [Automated [employer] ge] The system which generated this result transmitted reference range: 0 - 5 HPF. The reference range was not used to interpret this result as normal/abnormal. BACTERIA (test code = 1378361956) Few Negative A SQ EPITH (test code = 5140867489) HPF TRANS EPI (test code = 2536698993) <1 See_Comment [Automated messa ge] The system which generated this result transmitted reference range: <=1 HPF. The reference range was not used to interpret this result as normal/abnormal. Lab Interpretation (test code = 25255-5) [facility] [id number] 11:31:00* Test Item Value Reference Range Interpretation Comme nts POCT PREG (test code = 1605) Negative On board controls acceptable with C Line (test code = 3574) Present POCT PREG LOT # (test code = 3575) [facility] [id number] POCT PREG TEST DATE ( test code = 3576) 10/08/2022 Lab Interpretation (test cod e = 27688-8) Normal [facility] CenterURINE [id number] 17:42:24* Test Item Value Reference Range Interpretation Comme nts URINE CULTURE (test code = 630-4) 10,000 - 100,000 CFU/mL mixed aerobic organisms - suggests endogenous microbial contamination [facility] Center[facility]asi Metabolic Panel (NA, K, CL, CO2, GLUCOSE, BUN, CREATININE, CA)2021-03-12 11:27:06* Test Item Value Reference Range Interpretation Comme nts NA (test code = 3437346262) 137 mmol/L 135-145 K (test code = 8059642966) 3.1 mmol/L 3.5-5.0 L CL (test code = 5364645223) 103 mmol/L 98-108 CO2 TOTAL (test code = 4123073225) 27 mmol/L 23-31 AGAP (test code = 4189094022) 2-16 BUN (test code = 8970381898) 9 mg/dL 7-23 GLUCOSE (test code = 2651182878) 82 mg/dL 70-110 CREATININE (test code = 3851182942) 0.53 mg/dL 0.50-1.04 CALCIUM (test code = 0475308752) 8.9 mg/dL 8.6-10.6 eGFR (test code = 8714261174) mL/min/1.73m2 EVERARDO (test code = EVERARDO) Association [...] imaging tests). Lab Interpretation (test code = 66335-2) Abnormal [facility] CenterMagnesium Mucfl9826-93-58 11:22:32* Test Item Value Reference Range Interpretation Comme nts MAGNESIUM (test code = 1919938286) 2.1 mg/dL 1.7-2.4 Lab Interpretation (test cod e = 69742-9) Normal [facility] with Ifxzqitpypbd7777-59-37 11:05:52* Test Item Value Reference Range Interpretation Comme nts WBC (test code = 6690-2) See_Comment [Automated OnGreen] The system which generated this result transmitted reference range: 4.50 - 13.50 10*3/?L. The reference range was not used to interpret this result as normal/abnormal. RBC (test code = 789-8) See_Comment [Automated OnGreen] The system which generated this result transmitted [...] 34.4 g/dL 32.0-36.0 RDW-SD (test code = 37220-2) 37.9 fL 38.5-49.0 L RDW-CV (test code = 788-0) 12.3 % 11.5-14.0 PLT (test code = 777-3) See_Comment [Automated [employer] ge] The system which generated this result transmitted reference range: 135 - 361 10*3/?L. The reference range was not used to interpret this result as normal/abnormal. MPV (test code = 24454-0) 10.1 fL 9.4-13.3 NRBC/100 WBC (test code = 2559105420) See_Comment [Automated [employer] ssage] The system which generated this result transmitted reference range: 0.0 - 10.0 /100 WBCs. The reference range was not used to interpret this result as normal/abnormal. NRBC x10^3 (test code = 1109269843) <0.01 See_Comment [Automated [employer]] The system which generated this result transmitted reference range: 10*3/?L. The reference range was not used to interpret this result as normal/abnormal. GRAN MAT (NEUT) % (test code = 770-8) 59.8 % IMM GRAN % (test code = 6327208349) 0.80 % LYMPH % (test code = 736-9) 26.3 % MONO % (test code = 5905-5) 12.3 % EOS % (test code = 713-8) 0.5 % BASO % (test code = 706-2) 0.3 % GRAN MAT x10^3(ANC) (test code = 9931379147) 3.91 10*3/uL 1.50-10.30 IMM GRAN x10^3 (test code = 8509843714) 0.05 10*3/uL 0.00-0.06 LYMPH x10^3 (test code = 731-0) 1.72 10*3/uL 0.70-7.40 MONO x10^3 (test code = 742-7) 0.80 10*3/uL 0.00-0.50 H EOS x10^3 (test code = 711-2) 0.03 10*3/uL 0.00-0.40 BASO x10^3 (test code = 704-7) <0.03 0.00-0.10 Lab Interpretation (test code = 55043-5) [facility]normal [facility] (ID NOW RAPID TESTING)2021-03-11 18:10:27* Test Item Value Reference Range Interpretation Comme nts SARS-CoV-2 Rapid ID NOW (test code = 96061-3) Not Detected Not Detected EVERARDO (test code = EVERARDO) ID NOW COVID-19 As say is an isothermal nucleic acid amplification test intended for the qualitative detection of nucleic acid from SARS-CoV-2 viral RNA in nasopharyngeal (RACE BOARD ATTENDANT) specimens. It is used under Emergency Use [...] clinically indicated. Lab Interpretation (test code = 63932-1) Normal [facility] CenterLactic Acid Whole Pwrpp6911-43-89 17:11:07* Test Item Value Reference Range Interpretation Comme nts LACTIC ACID (test code = 1718396928) 0.91 mmol/L 0.50-2.20 Lab Interpretation (test cod e = 07881-3) Normal [facility] CenterCT ABDOMEN PELVIS W [id number] 16:28:25No acute abnormality identified. INDICATION: ?Abdominal abscess/infection [...] free intraperitoneal air or abscess is noted. [facility], Radiant Results Inft User - 03/11/2021 11:29 [...] or abscess is noted.IMPRESSIONNo acute abnormality identified. [facility] with Fssuqcnpakgv1485-16-94 16:05:33* Test Item Value Reference Range Interpretation [...] 34.6 g/dL 32.0-36.0 RDW-SD (test code = 28772-3) 36.3 fL 38.5-49.0 L RDW-CV (test code = 788-0) 11.9 % 11.5-14.0 PLT (test code = 777-3) See_Comment H [Automated message] The system which generated this result transmitted reference range: 135 - 361 10*3/?L. The reference range was not used to interpret this result as normal/abnormal. MPV (test code = 92211-5) 9.6 fL 9.4-13.3 NRBC/100 WBC (test code = 7112205638) See_Comment [Automated message] The system which generated this result transmitted reference range: 0.0 - 10.0 /100 WBCs. The reference range was not used to interpret this result as normal/abnormal. NRBC x10^3 (test code = 1409923677) <0.01 See_Comment [Automated message] The system which generated this result transmitted reference range: 10*3/?L. The reference range was not used to interpret this result as normal/abnormal. GRAN MAT (NEUT) % (test code = 770-8) 86.3 % IMM GRAN % (test code = 2156588356) 0.90 % LYMPH % (test code = 736-9) 6.3 % MONO % (test code = 5905-5) 6.1 % EOS % (test code = 713-8) 0.1 % BASO % (test code = 706-2) 0.3 % GRAN MAT x10^3(ANC) (test code = 0638937119) 20.00 10*3/uL 1.50-10.30 H IMM GRAN x10^3 (test code = 1544456591) 0.21 10*3/uL 0.00-0.06 H LYMPH x10^3 (test code = 731-0) 1.45 10*3/uL 0.70-7.40 MONO x10^3 (test code = 742-7) 1.42 10*3/uL 0.00-0.50 H EOS x10^3 (test code = 711-2) <0.03 0.00-0.40 BASO x10^3 (test code = 704-7) 0.07 10*3/uL 0.00-0.10 Lab Interpretation (test code = 04656-7) Abnormal [facility] CenterUrinalysis2021-06-03 15:41:19* Test Item Value Reference Range Interpretation Comme nts APPEARANCE (test code = 3637986348) Hazy Clear A COLOR (test code = 5637072754) Yellow Yellow PH (test code = 4622906325) 4.8-8.0 SP GRAVITY (test code = 2586315960) 1.003-1.030 GLU U QUAL (test code = 1718228689) Normal Normal BLOOD (test code = 5247654633) 1+ Negative A KETONES (test code = 3774967987) Negative Negative PROTEIN (test code = 2887-8) Negative Negative UROBILIN (test code = 9058057186) Normal Normal BILIRUBIN (test code = 0913437646) Negative Negative NITRITE (test code = 4690527917) Negative Negative LEUK EMILIANO (test code = 6300646888) 500/uL Negative A RBC/HPF (test code = 5884937497) See_Comment H [Automated messa ge] The system which generated this result transmitted reference range: 0 - 3 HPF. The reference range was not used to interpret this result as normal/abnormal. WBC/HPF (test code = 0997233089) See_Comment H [Automated messa ge] The system which generated this result transmitted reference range: 0 - 5 HPF. The reference range was not used to interpret this result as normal/abnormal. BACTERIA (test code = 6105209734) Few Negative A MUCOUS (test code = 2613020266) Slight Negative LPF A SQ EPITH (test code = 3685220000) HPF Lab Interpretation (test code = 92666-9) Abnormal [facility] CenterComplete Metabolic Oihhb4989-59-93 15:37:26* Test Item Value Reference Range Interpretation Comme nts NA (test code = 2889343452) 137 mmol/L 135-145 K (test code = 1711565429) 3.9 mmol/L 3.5-5.0 CL (test code = 8716946871) 104 mmol/L 98-108 CO2 TOTAL (test code = 7340894396) 25 mmol/L 23-31 AGAP (test code = 6427267946) 2-16 BUN (test code = 8703978273) 15 mg/dL 7-23 GLUCOSE (test code = 4823662271) 106 mg/dL 70-110 CREATININE (test code = 9608679928) 0.54 mg/dL 0.50-1.04 TOTAL BILI (test code = 1907471139) 0.8 mg/dL 0.1-1.1 CALCIUM (test code = 9198525208) 9.4 mg/dL 8.6-10.6 T PROTEIN (test code = 0430593298) 7.9 g/dL 6.3-8.2 ALBUMIN (test code = 5983025081) 4.5 g/dL 3.5-5.0 ALK PHOS (test code = 9220777875) 87 U/L 34-122 ALTv (test code = 1742-6) 21 U/L 5-35 AST(SGOT) (test code = 4461430703) 21 U/L 13-40 eGFR (test code = 9286309311) mL/min/1.73m2 EVERARDO (test code = EVERARDO) Association [...] or urine or abnormalities in imaging tests). [facility] CenterLipase, Fxurz9182-93-41 15:36:45* Test Item Value Reference Range Interpretation Comme nts LIPASE (test code = 2443318943) 52 U/L 0-220 Lab Interpretation (test cod e = 10923-3) Normal [facility]PO[facility] Gvaf4484-67-86 15:06:00* Test Item Value Reference Range Interpretation Comme nts POCT PREG (test code = 1605) negative On board controls acceptable with C Line (test code = 3574) present POCT PREG LOT # (test code = 3575) [id number] POCT PREG TEST DATE ( test code = 3576) 09/07/2022 Lab Interpretation (test cod e = 45064-0) Normal [facility] CenterCOVID[facility] (ID NOW RAPID TESTING)2021-02-25 02:15:05* Test Item Value Reference Range Interpretation Comme nts SARS-CoV-2 Rapid ID NOW (test code = 02382-5) Not Detected Not Detected EVERARDO (test code = EVERARDO) ID NOW COVID-19 As say is an isothermal nucleic acid amplification test intended for the qualitative detection of nucleic acid from SARS-CoV-2 viral RNA in nasopharyngeal (RACE BOARD ATTENDANT) specimens. It is used under Emergency Use [...] clinically indicated. Lab Interpretation (test code = 25261-4) Normal [facility] CenterSARS-CoV-2 (COVID-19) by RT-PCR (HIGH RISK) 2020-04-13 00:00:00* Test Item Value Reference Range Interpretation Comme nts SARS-CoV-2 INTERPRETATION (t est code = 90874) NEGATIVE SOURCE (test code = 78802) NOT SPECIFIED Marco Antonio Goins Notes Date/Time Note Provider Source 2025-01-28 14:39:36 Called pt, discussed and educated on rh negative status of mom and baby. Patient verbalized understanding. Gissell Barnes RN 01/28/25 2:40 PM [facility] 2025-01-23 13:28:43 Patient informed of no need for additional USG at this time, verbalized understanding. [facility] 2025-01-23 08:05:42 Attempted to call patient, no answer, left vm. [facility] 2025-01-22 16:08:38 Pt had an anatomy scan completed last month, the result wnl , no recommendations for additional usg were noted. If patient desires 3d/4d ultrasound she can make an appt with [employer] [facility] for the fun ultrasound pics, but as of right now there is no medical indication for another ultrasound. MOJGAN Mcginnis 01/22/2025 4:09 PM [facility] 2025-01-22 12:57:33 Lorrie Chacon is a 24 year old female Patient requesting referral for ultrasound to be placed to schedule appointment, please call [phone] (home) Isabel Villanueva [facility] 2024-10-29 14:11:00 Access Center Lorrie Chacon is a 24 year old female Received [employer] message: ever since I ve been taking it, I have the worst throbbing headache ever I don t understand why it s making me feel like this. I don t wanna take it like I don t even know what BV is. Calling patient to discuss symptoms, "more frustrated than anything", "doesn't really hurt" now, referring to the headache. Patient states she started having a headache after taking Flagyl and is frustrated because she doesn't know what BV or how much Tylenol she can take. Explained BV and went over Tylenol dosages. Triage Assessment Last Clinic Visit: 10/26/24 UC for vaginal discharge Primary Symptom: headache Onset / Duration: last night Location / Description: head/states took first dose of Flagyl at 1800 then later in the evening developed a headache Pain / Severity: headache "it doesn't really hurt" 2/10 after taking Tylenol 3 hours ago Associated Symptoms: if stand up too fast, c/o brief lightheadedness occasionally Fever / Method: denies Hydration: 3 bottles stoll, urinated X 6 Treatment so far: Tylenol 500 mg @ 3 hours ago Effect on ADL's: some change Gestational Weeks: 12 weeks Rupture Membranes: denies Bleeding / Spotting / Pads per hour: denies Movement: N/A Para / : G1 EDC: 05/13/25 Pre-existing condition / Immunocompromised: Rh neg Reason for Disposition Headache Protocols used: - Llikmuus-BCTZK-WG ADALID Santa, RN [facility] Access Center Triage Nurse PACKER Vicki Light RN [facility] 2024-10-28 17:50:05 Spoke to patient to answer questions regarding test results. Pt verbalized understanding. Torrez RN [facility] 2024-10-28 16:57:06 Patient is positive for BV. Sent Metronidazole to the pharmacy. [facility] 2024-10-28 16:45:37 Lorrie Chacon is a 24 year old female. Patient is calling asking to speak with a nurse regarding lab results [facility]2025-01-06 15:02:21 Pt given printed and verbal discharge instructions regarding back pain in , encouraged hydration. Prescriptions provided. Discussed use of tylenol only for pain control. Discussed robaxin side affects and to avoid driving/operating machinery/or engaging in activities requiring alertness while taking. Pt verbalized understanding of instructions, pt awake alert oriented, resp reg unlabored, skin w/d, color appropriate for race, moves all ext well, pt encouraged to follow up with pcp. Advised to seek medical attention for new/prolonged/worsening of symptoms. Symptoms addressed. No adverse reaction to meds given in ER noted upon discharge. PIV d'cd, dressing to site, catheter intact. Pt leaving amb with steady gait, in no apparent distress. Left with spouse. Ann RNThe [facility] CenterQdxgfy6684-93-01 11:35:00 Patient arrived ambulatory c/o right sided low back pain that radiates down to her right buttock. Denies any injury. Last medicated with tylenol yesterday. Patient is 10 weeks. G1. Has not seen an obgyn yet. [facility] Shira Batista [facility]Sewnnw1309-[facility]-88 07:43:01 Called pt, discussed results and poc. Verbalized understanding. Gissell Barnes RN 09/20/24 7:43 AM [place] 237994-12-13 07:36:20 Duplicate encounter. Gissell Barnes RN 09/20/24 7:36 AM [facility]2024-12-12 17:41:00 Lorrie Chacon is a 23 year old female Patient is returning a missed call to the clinic nurse in regards to results Please advise [phone] (home) [address] AT [place] [address] [facility] Amber [facility]Met[facility] CenterMojrsz3798-69-34 15:00:42 Called pt, no answer. Left vm. Gissell Barnes RN 09/19/24 3:00 PM [facility]2024-12-12 14:09:10 Pt is Rh neg, please inform her she will need rhogam at 28 wks and prn vaginal bleeding MOJGAN Mcginnis 09/19/2024 2:09 PM [facility]2023-08-15 18:15:58 Pt given printed and verbal discharge instructions regarding nausea and vomiting and burning sensation of stomach, encouraged hydration, 2 Prescriptions sent. Pt verbalized understanding of instructions, pt awake alert oriented, resp reg unlabored, skin w/d,color appropriate for race, moves all ext well,pt encouraged to follow up with pcp. Advised to seek medical attention for new/prolonged/worsening of symptoms, Symptoms improved. No adverse reaction to meds given in ER noted upon discharge PIV d'cd, dressing to site, catheter in tact. Awake, alert oriented, resp reg unlabored, skin w/d, pt leaving amb with steady gait, in no apparent distress, [id number] 14[facility]11:47 Patient to ED for vomiting x 3 days. Her abdomen feels like it is on fire. Every time she eats she vomits. She felt like this last time and she got admitted per patient. Ced Womack [facility]
[2025-01-28] MEDS ORDERED: NA CHLORIDE 0.9% 1,000 ML ONE (22:03)
[2025-01-28] MEDS ORDERED: ONDANSETRON 4 MG/2 ML VIAL ONE (22:03)
[2025-01-28 22:27] LABS: Specific Gravity 1.021 (1.005-1.030); Sqamous Epithelial <5 /HPF (None Seen); Urine Bacteria <20 /HPF (<20); Urine Bilirubin NEGATIVE (Negative); Urine Blood 1+ (Negative); Urine Clarity Extremely Turbid (Clear); Urine Color Light-Yellow (Yellow); Urine Culture Reflex Order NOT NEEDED; Urine Glucose NEGATIVE (Negative); Urine Ketones NEGATIVE (Negative); Urine Microscopic Reflex YN ORDER UMIC; Urine Mucus Slight /HPF (None Seen); Urine Nitrite NEGATIVE (Negative); Urine Protein NEGATIVE (Negative); Urine RBC <5 /HPF (None Seen); Urine Urobilinogen Normal (Normal); Urine WBC <5 /HPF (<5)
[2025-01-28 22:29] LABS: Albumin 2.8 g/dL (3.4-5.0); Albumin/Globulin Ratio 0.7 (1.1-1.8); Anion Gap 9.1 mEq/L (5.0-15.0); Bilirubin Total 0.2 mg/dL (0.2-1.0); Potassium 3.1 mEq/L (3.5-5.1); Protein, Total 6.8 g/dL (6.4-8.2)
[2025-01-28 22:38] LABS: Absolute Lymphocytes (CBC) 0.6 K/uL (0.7-4.9); Absolute Monocytes 0.5 K/uL (0.1-1.3); Absolute Neutrophil 3.4 K/uL (1.8-8.0); Basophils % 0.4 % (0-1.3); Eosinophils % 0.1 % (0-4.4); Hematocrit 32.6 % (36.0-45.0); Hemoglobin 11.8 g/dL (12.0-15.0); Lymphocytes % 12.8 % (15.3-44.8); MCH 31.3 pg (27.0-35.0); MCHC 36.3 g/dL (32.0-36.0); MCV 86.1 fL (80-100); MPV 8.3 fL (7.6-11.3); Monocytes % 10.5 % (3.3-12.3); Neutrophils % 76.2 % (41.7-73.7); Platelets 183 thou/uL (152-406); RBC Red Blood Cell Count 3.78 M/uL (3.86-4.86); Red Cell Distribution Width 13.3 % (12.1-15.2)
[2025-01-28] MEDS ORDERED: ACETAMINOPHEN 500 MG TAB ONE (22:47)
[2025-01-28] MEDS ORDERED: POTASSIUM CL SA 10 MEQ TAB PO ONE (22:49)
[2025-01-28 23:36] LABS: Influenza A Ag Negative; Influenza B Ag Negative; SARS-CoV-2 Antigen Rapid Res Negative (Negative)
--- NOTE | 2025-01-28 23:47 | EDPHYS ---
Physician Documentation [facility] Name: Latonia Tabares Age: 24 yrs Sex: Female : 2000 Arrival Date: 01/28/2025 Time: 21:12 Bed 18 Private MD: ED Physician Gretta Bradley HPI: 01/28 21:35 This 24 yrs old Female presents to ER via Unassigned with complaints of Fever, Cough, kb Nausea/Vomiting, 25 weeks preg. 21:35 Pt is a 24 year old female who presents for fever, nausea, vomiting that started 3 days kb ago. TMAX 101. Reports diarrhea, cough, congestion, runny nose. . 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 - Infectious Disease History:: Denies. - Social history:: Smoking status: unknown. ROS: 21:35 Constitutional: As per HPI kb Exam: 21:35 Constitutional: This is a well developed, well nourished patient who is awake, alert, kb and in no acute distress. Head/Face: Normocephalic, atraumatic. ENT: Moist Mucous membranes Cardiovascular: Regular rate Respiratory: Respirations even and unlabored. No increased work of breathing. Talking in full sentences Abdomen/GI: Soft, non-tender. No distention Skin: Warm, dry with normal turgor. Normal color. MS/ Extremity: Pulses equal, no cyanosis. Neurovascular intact. Full, normal range of motion. Neuro: Awake and alert, GCS 15, oriented to person, place, time, and situation. Vital Signs: 21:39 BP 117 / 71; Pulse 109; Resp 19; Temp 99.6(O); Pulse Ox 100% ; Weight 104.33 kg; Height cm10 5 ft. 4 in. ; Pain 8/10; 22:54 BP 102 / 55; Pulse 99; Resp 18; Pulse Ox 98% ; Pain 5/10; rg5 23:20 BP 90 / 57; Pulse 88; Resp 18; Temp 98; Pulse Ox 97% on R/A; Pain 0/10; rg5 21:39 Body Mass Index 39.48 (104.33 kg, 162.56 cm) cm10 21:39 Pain Scale: Adult cm10 22:54 Pain Scale: Adult rg5 23:20 Pain Scale: Adult rg5 MDM: 21:22 Medical Screening Exam initiated kb 23:45 Differential diagnosis: flu, covid, uri, strep, dehydration, abnormal electrolytes. kb Data reviewed: vital signs, nurses notes. Counseling: I had a detailed discussion with the patient and/or guardian regarding the historical points, exam findings, and any diagnostic results supporting the discharge/admit diagnosis, lab results, the need for outpatient follow up, a family practitioner, to return to the emergency department if symptoms worsen or persist or if there are any questions or concerns that arise at home. ED course: Pt feeling better after treatment. 01/28 21:37 Order name: CBC with Diff; Complete Time: 22:45 kb 01/28 21:37 Order name: CMP; Complete Time: 22:32 kb 01/28 21:37 Order name: Lipase; Complete Time: 22:32 kb 01/28 21:37 Order name: Urinalysis w/ reflexes; Complete Time: 22:28 kb 01/28 21:37 Order name: COVID-19 Ag + Flu A+B Ag; Complete Time: 23:37 kb 01/28 21:41 Order name: Group A Streptococcus Rapid; Complete Time: 23:12 kb 01/28 23:12 Order name: Throat Culture EDSC 01/28 21:37 Order name: IV Saline Lock; Complete Time: 22:21 kb 01/28 21:37 Order name: Labs collected and sent; Complete Time: 22:21 kb Administered Medications: 21:45 Drug: Ondansetron IVP 4 mg IVP once; over 2 minutes Route: IVP; Site: right antecubital;rg5 22:54 Follow up: Response: No adverse reaction rg5 21:45 Drug: NS 0.9% IV 1000 ml IV at 1 bolus Per protocol; to be given as a bolus over 60 rg5 minutes Route: IV; Rate: 1 bolus; Site: right antecubital; 23:44 Follow up: IV Status: Completed infusion me1 22:40 Drug: Potassium Chloride PO 40 mEq PO once Route: PO; rg5 22:54 Follow up: Response: No adverse reaction rg5 Disposition Summary: 01/28/25 23:46 Discharge Ordered Notes: Location: Home kb Condition: Stable kb Diagnosis - Viral infection, unspecified kb - Hypokalemia kb Followup: kb - With: Emergency Department - When: As needed - Reason: Worsening of condition Followup: kb - With: Private Physician - When: 2 - 3 days - Reason: Recheck today's complaints, Continuance of care, Re-evaluation by your physician Discharge Instructions: - Discharge Summary Sheet kb - Viral Illness, Adult kb Forms: - Medication Reconciliation Form kb - Antibiotic Education kb - Prescription Opioid Use kb - Patient Portal Instructions kb - Leadership Thank You Letter kb Signatures: Dispatcher [employer] EDCeci Gonzalez, TIFFANY MONEA-Marleny Jose, RN RN cm10 Brayden Vital RN RN rg5 Brooklyn Blanca RN me1
--- NOTE | 2025-01-28 23:47 | ER ---
Nurse's Notes [facility] Name: Latonia Tabares Age: 24 yrs Sex: Female : 2000 Arrival Date: 01/28/2025 Time: 21:12 Bed 18 Private MD: Diagnosis: Viral infection, unspecified;Hypokalemia Presentation: 01/28 21:39 Chief complaint: Patient states: Vomiting, fever, diarrhea, cough, congestion, runny cm10 nose onset Monday. TMAX 101. Coronavirus screen: Client denies travel out of the [place] in the last 14 days. Ebola Screen: Patient denies travel to an Ebola-affected area in the 21 days before illness onset. Initial Sepsis Screen: Does the patient meet any 2 criteria? HR > 90 bpm. Does the patient have a suspected source of infection? No. Patient's initial sepsis screen is negative. Risk Assessment: Do you want to hurt yourself or someone else? Patient reports no desire to harm self or others. Onset of symptoms was January 28, 2025. 21:39 Method Of Arrival: Ambulatory cm10 21:39 Acuity: NICHO 3 cm10 Triage Assessment: 21:40 General: Appears in no apparent distress. uncomfortable, Behavior is calm, cooperative. cm10 Neuro: No deficits noted. Level of Consciousness is awake, alert, obeys commands, Oriented to person, place, time, situation, Appropriate for age. Respiratory: No deficits noted. Airway is patent Respiratory effort is even, unlabored, Respiratory pattern is regular, symmetrical. 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 - Infectious Disease History:: Denies. - Social history:: Smoking status: unknown. Screenin:45 [facility] ED Fall Risk Assessment (Adult) History of falling in the last 3 months, rg5 including since admission No falls in past 3 months (0 pts) Confusion or Disorientation No (0 pts) Intoxicated or Sedated No (0 pts) Impaired Gait No (0 pts) Mobility Assist Device Used No (0 pt) Altered Elimination No (0 pt) Score/Fall Risk Level 0 - 2 = Low Risk Oriented to surroundings, Maintained a safe environment, Provided non-skid footwear. Abuse screen: Denies threats or abuse. Nutritional screening: No deficits noted. Tuberculosis screening: No symptoms or risk factors identified. Assessment: 21:45 General: Appears in no apparent distress. comfortable, Behavior is calm, cooperative, rg5 appropriate for age. 21:45 Pain: Complains of pain in head. Neuro: Level of Consciousness is awake, alert, obeys rg5 commands, Reports headache. Cardiovascular: Denies chest pain, Patient's skin is warm and dry. Respiratory: Reports shortness of breath at rest cough that is. GI: Abdomen is round Abd is soft and non tender. : No signs and/or symptoms were reported regarding the genitourinary system. EENT: Reports nasal discharge. Derm: Skin is intact, Skin is dry, Skin is normal, Skin temperature is warm. Musculoskeletal: Circulation, motion, and sensation intact. Range of motion: intact in all extremities. 22:35 Reassessment: No changes from previously documented assessment. Patient and/or family rg5 updated on plan of care and expected duration. Pain level reassessed. Patient is alert, oriented x 3, equal unlabored respirations, skin warm/dry/pink. 23:21 Reassessment: Patient and/or family updated on plan of care and expected duration. Pain rg5 level reassessed. Patient is alert, oriented x 3, equal unlabored respirations, skin warm/dry/pink. Patient states feeling better. Patient states symptoms have improved. Vital Signs: 21:39 BP 117 / 71; Pulse 109; Resp 19; Temp 99.6(O); Pulse Ox 100% ; Weight 104.33 kg; Height cm10 5 ft. 4 in. ; Pain 8/10; 22:54 BP 102 / 55; Pulse 99; Resp 18; Pulse Ox 98% ; Pain 5/10; rg5 23:20 BP 90 / 57; Pulse 88; Resp 18; Temp 98; Pulse Ox 97% on R/A; Pain 0/10; rg5 21:39 Body Mass Index 39.48 (104.33 kg, 162.56 cm) cm10 21:39 Pain Scale: Adult cm10 22:54 Pain Scale: Adult rg5 23:20 Pain Scale: Adult rg5 ED Course: 21:16 Patient arrived in ED. gm2 21:22 Ceci Reyez FNP-C [facility]. kb 21:22 Gretta Bradley MD is Attending Physician. kb 21:40 Triage completed. cm10 21:41 Arm band placed on right wrist. Patient placed in an exam room, on a stretcher. cm10 21:42 Brayden Vital, BERNIE is Primary Nurse. rg5 21:45 Patient has correct armband on for positive identification. Bed in low position. Call rg5 light in reach. Side rails up X 1. Door closed. Noise minimized. Warm blanket given. 21:45 No provider procedures requiring assistance completed. Inserted saline lock: 20 gauge rg5 in right antecubital area, using aseptic technique. Blood collected. Flushed with 10 mL NS. Patient maintains SpO2 saturation greater than 95% on room air. 23:44 Provided Education on: POC. Verbalized understanding.. me1 23:51 IV discontinued, intact, bleeding controlled, No redness/swelling at site. Pressure me1 dressing applied. Administered Medications: 21:45 Drug: Ondansetron IVP 4 mg IVP once; over 2 minutes Route: IVP; Site: right antecubital;rg5 22:54 Follow up: Response: No adverse reaction rg5 21:45 Drug: NS 0.9% IV 1000 ml IV at 1 bolus Per protocol; to be given as a bolus over 60 rg5 minutes Route: IV; Rate: 1 bolus; Site: right antecubital; 23:44 Follow up: IV Status: Completed infusion me1 22:40 Drug: Potassium Chloride PO 40 mEq PO once Route: PO; rg5 22:54 Follow up: Response: No adverse reaction rg5 Medication: 21:45 VIS not applicable for this client. rg5 Outcome: 23:46 Discharge ordered by . kb 23:51 Discharged to home ambulatory, with significant other, me1 23:51 Condition: stable 23:51 Discharge instructions given to patient, significant other, Instructed on discharge instructions, follow up and referral plans. Demonstrated understanding of instructions, follow-up care, 23:52 Patient left the ED. me1 Signatures: Ceci Reyez FNP-C FNP-Ckb Martinez, Clarissa, RN RN cm10 Brooklyn Blanca, RN RN me1 Dana Brady gm2 Brayden Vital, RN RN rg5
[2025-01-29] VITALS: BP 90/57; TEMP 98; O2SAT 97
== END 2025-01-28 23:52 | disposition home or self-care (01) ==
LOC: ER 21:12
DX: O98.512 Other viral diseases complicating pregnancy, second trimester (principal); O99.282 Endocrine, nutritional and metabolic diseases complicating pregnancy, second trimester; E87.6 Hypokalemia; Z3A.25 25 weeks gestation of pregnancy; Z11.52 Encounter for screening for COVID-19
CPT/HCPCS: 96361; 87070; 85025; 81001; 36415; 83690; 80053; 96374; 99284; 87428; J2405; J7030

== ENCOUNTER 2025-05-17 00:31 | Emergency (ER) | payer OTHER ==
--- OUTSIDE RECORDS SUMMARY | 2025-05-17 00:44 | XMS REPORT | Continuity of Care Document ---
Author Name Unknown Address [address] [facility]. [address] [place] [address] [facility] Address [address] [facility] [address] [place] [address] Care Team Providers Care Community [facility] Outreach Worker Name Role Phone Vivienne Weiner Primary Care Physician Visit, Darius Nurse Attending Clinician Nubia Hall Attending Clinician + ERIKA CHAVARRIA Attending Clinician Unavailable ERIKA CHAVARRIA Attending Clinician Unavailable YAS ESCAMILLA Attending Clinician Unavailable Tamiko Pierre MD Attending Clinician Joyce Siddiqui DO Attending Clinician + [phone] Doctor Unassigned, [place] Attending Clinician U NUBIA Berman Attending Clinician Unavail able JONO ZELAYA Attending Clinician Un available Ayala Heck CNM Attending Clinician Vikci Light RN Attending Clinician Unavailabl e Eric MONAE, Faiza Attending Clinician + [phone] FAIZA REYES Attending Clinician Unavailable Unknown, Attending Attending Clinician Unavailab ABI Mcdaniels Attending Clinician Unavailable ABI LÓPEZ Attending Clinician Unavailable ABI LÓPEZ Attending Clinician Unavailable Stacy, Darryl-hoa Attending Clinician UnavailAbi Sexton MD Attending Clinician +[phone] AYALA HECK Attending Clinician Unavaila FABRIZIO Haque Attending Clinician Unavailable FABRIZIO TINSLEY Attending Clinician Unavailable Fabrizio Tinsley DO Attending Clinician + JENNIFER AYOUB Attending Clinician Unavailable Mega MANAGER FINE DINING, Jennifer Attending Clinician [phone] THELMA GARCIA Attending Clinician Unavailable Thelma Gore Attending Clinician + [phone] Ceci GIBBS, Gissell Attending Clinician Monse vailable Doctor Unassigned, [place] Attending Clinician U Nubia Vanegas Attending Clinician + MICHA VANESSA Attending Clinician Unavailable Micha Zamudio Attending Clinician +[phone] Suzette Michele MD Attending Clinician + [phone] SUZETTE MICHELE Attending Clinician Unavailable Solange Frod MD Attending Clinician + 2 Anatoly Valdovinos MD Attending Clinician + [facility], [facility] Attending Clinician Unava ilERIKA Clark Admitting Clinician Unavailable FABRIZIO TINSLEY Admitting Clinician Unavailable Anatoly Valdovinos MD Admitting Clinician + Payers Payer Name Policy Type Policy Number Effective Date Expirati on Date Source [facility] MARCO ANTONIO MOORE [id number] 2017 00:00:00 [employer] [id number] 2024 00:00:00 Problems Condition Name Condition Details Condition Category Status Onset Date Resolution Date Last Treatment Date Treating Clinician Comments Source (spontaneo us vaginal delivery) (spontaneo us vaginal delivery) Disease Active 8-06 00:00: 00 [facility] Single live Single live Disease Active 8-06 00:00: 00 [facility] Acute blood loss anemia Acute blood loss anemia Disease Active 8-06 00:00: 00 [facility] Obstetrica l laceration Obstetrica l laceration Disease Active 8-06 00:00: 00 [facility] 39 weeks gestation of 39 weeks gestation of Disease Recurre nce 0 8-03 00:00: 00 [facility] Encounter for induction of labor Encounter for induction of labor Disease Recurre nce 0 8-03 00:00: 00 [facility] Rh negative status during in third trimester Rh negative status during in third trimester Disease Active 8-03 00:00: 00 [facility] Need for varicella vaccine Need for varicella vaccine Disease Active 8-03 00:00: 00 [facility] Rh negative state in antepartum period Rh negative state in antepartum period Disease Active 2023-10 00:00: 00 [facility] Supervisio n of high-risk Supervisio n of high-risk Disease Active 2023-10 00:00: 00 [facility] Obesity in Obesity in Disease Active 2018-10 0 00:00: 00 [facility] BMI 39.0-39.9, adult BMI 39.0-39.9, adult Disease Active 2018-10 008 00:00: 00 [facility] Vomiting Vomiting Disease Resolve d 6-03 00:00: 00 2024-09-18 00:00:00 2024-09-18 15:46:24 [facility] Obesity (BMI 30-39.9) Obesity (BMI 30-39.9) Disease Resolve d 2020-0 6-03 00:00: 00 2024-09-18 00:00:00 2024-09-18 15:46:29 [facility] Sexually active child Sexually active child Disease Resolve d 2018-10 0-08 00:00: 00 2024-09-18 00:00:00 2024-09-18 15:46:18 [facility] Depo-Prove ra contracept dash status Depo-Prove ra contracept dash status Disease Resolve d 1-10 00:00: 00 2024-09-18 00:00:00 2024-09-18 15:46:26 [facility] Screening examinatio n for STD (sexually transmitte d disease) Screening examinatio n for STD (sexually transmitte d disease) Disease Resolve d 2017-10 0-10 00:00: 00 2024-09-18 00:00:00 2024-09-18 15:46:23 [facility] Over weight Over weight Disease Resolve d 2017-10 0-10 00:00: 00 2024-09-18 00:00:00 2024-09-18 15:46:22 [facility] control control Disease Resolve d 9-26 00:00: 00 2024-09-18 00:00:00 2024-09-18 15:46:15 [facility] Allergies, Adverse Reactions, Alerts Allergy Name Allergy Type Status Severity Reaction(s) Onset Date Inactive Date Treating Clinician Comments Source NO KNOWN ALLERGIE S Drug Class Active [facility] Social History Social Habit Start Date Stop Date Quantity Comments Source ASSERTION 2024-08-20 00:00:00 [facility] History SDOH Alcohol Comment Midway o f [facility] SDOH Alcohol Std Drinks [facility] History SDOH Alcohol Binge [facility] Alcoholic beverage intake 2025-05-13 00:00:00 2025-05-13 00:00:00 0 /d [facility] Tobacco use and exposure 2024-10-16 00:00:00 2024-10-16 00:00:00 Smokeless tobacco non-user [facility] History of Social function 2024-09-18 00:00:00 2024-09-18 00:00:00 [facility] Exposure to SARS-CoV-2 (event) 2023-02-13 00:00:00 2023-02-23 17:41:00 Not sure [facility] Alcohol intake 2021-10-18 00:00:00 2021-10-18 00:00:00 0 /d [facility] Education 2021-03-11 00:00:00 2021-03-11 00:00:00 13 [facility] History SDOH Alcohol Frequency 2019-07-16 00:00:00 2019-07-16 00:00:00 1 [facility] Sex assigned at 2002 00:00:00 2000 00:00:00 [facility] Smoking Status Start Date Stop Date Source Never smoked tobacco [facility] Medications Ordered Medication Name Filled Medication Name Start Date Stop Date Current Medication? Ordering Clinician Indication Dosage Frequency Signature (SIG) Comments Components Source acetaminoph en (TYLENOL) tablet 650 mg 05-14 13:00: 00 05-14 04:47 :28 No 650mg 650 mg, Oral, TID, First dose (after last modificati on) on Mon05/14/25 at 0800, Until Discontinu ed, Routine [facility] acetaminoph en (TYLENOL) tablet 650 mg acetaminoph en (TYLENOL) tablet 650 mg 05-14 05:00: 00 05-14 20:31 :23 Yes 650mg 650 mg, Oral, TID, First dose (after last modificati on) on Mon05/14/25 at 0000, Until Discontinu ed, Routine [facility] no.103-iron fum-folic () 27 mg iron- 1 mg folic tablet 05-14 00:00: 00 Yes [id number] 1{tbl} Take 1 tablet by mouth in the morning. [facility] docusate 100 mg capsule docusate 100 mg capsule 05-14 00:00: 00 Yes [id number] 200mg Take 2 capsules by mouth once daily as needed for Constipati on. [facility] ferrous sulfate 325 mg (65 mg iron) tablet ferrous sulfate 325 mg (65 mg iron) tablet 05-14 00:00: 00 Yes [id number] 325mg Take 1 tablet by mouth in the morning. [facility] ibuprofen 800 mg tablet ibuprofen 800 mg tablet 05-14 00:00: 00 Yes [id number] 800mg Take 1 tablet by mouth every 8 hours as needed (pain). Take with food or milk. [facility] ibuprofen (IBU) tablet 600 mg ibuprofen (IBU) tablet 600 mg 05-13 23:30: 00 05-14 20:31 :23 Yes 600mg 600 mg, Oral, Q8HPRN, Starting on Mon05/13/25 at 1830, Until Mon05/14/25 at 1531, Routine, Pain (scale 4-6) [facility] hydrOXYzine (ATARAX) tablet 50 mg hydrOXYzine (ATARAX) tablet 50 mg 05-13 23:25: 42 05-14 20:31 :23 Yes 50mg 50 mg, Oral, QHSPRN, Starting on Mon05/13/25 at 1825, Until Mon05/14/25 at 1531, Routine, Anxiety [facility] ketorolac (TORADOL) injection 30 mg ketorolac (TORADOL) injection 30 mg 05-13 23:22: 00 05-13 23:27 :00 Yes 30mg 30 mg, Slow IV Push, ONCE, 1 dose, On Mon05/13/25 at 1830, LEOLA [facility] acetaminoph en (TYLENOL) tablet 1,000 mg acetaminoph en (TYLENOL) tablet 1,000 mg 05-13 22:00: 00 05-13 21:27 :00 Yes 1000mg 1,000 mg, Oral, ONCE, 1 dose, On Mon05/13/25 at 1700, Routine [facility] lidocaine (XYLOCAINE) 2 % jelly URO-JET 10 mL lidocaine (XYLOCAINE) 2 % jelly URO-JET 10 mL 05-13 22:00: 00 05-13 23:37 :00 Yes 10mL 10 mL, Urethral, ONCE, 1 dose, On Mon05/13/25 at 1700, Routine [facility] ibupro[facility] ([facility]U) tablet 600 mg ibuprofen (IBU) tablet 600 mg 05-13 18:00: 00 05-13 23:25 :12 Yes 600mg 600 mg, Oral, TID, First dose on Mon05/13/25 at 1300, Until Discontinu ed, Routine [facility] rho(D) immune globulin (RHOPHYLAC) injection 300 mcg 05-13 15:38: 57 05-14 20:31 :23 No 300ug [facility] diphenhydrA MINE (BENADRYL) tablet 25 mg diphenhydrA MINE (BENADRYL) tablet 25 mg 05-13 15:38: 53 05-14 20:31 :23 Yes 25mg 25 mg, Oral, Q6HPRN, Starting on Mon05/13/25 at 1038, Until Mon05/14/25 at 1531, Routine, Sleep, Itching [facility] ondansetron (ZOFRAN (PF)) injection 4 mg 05-13 15:38: 53 05-14 20:31 :23 No 4mg [facility] simethicone (GAS RELIEF (SIMETHICON E)) chewable tablet 160 mg 05-13 15:38: 53 05-14 20:31 :23 No 160mg 160 mg, Oral, PC+HSPRN, Starting on Mon05/13/25 at 1038, Until Mon05/14/25 at 1531, Routine, Gas [facility] docusate (COLACE) capsule 200 mg docusate (COLACE) capsule 200 mg 05-13 15:38: 53 05-14 20:31 :23 Yes 200mg 200 mg, Oral, QDAILYPRN, Starting on Mon05/13/25 at 1038, Until Mon05/14/25 at 1531, Routine, Constipati on [facility] magnesium hydroxide (MILK OF MAGNESIA) 400 mg/5 mL suspension 30 mL 05-13 15:38: 53 05-14 20:31 :23 No 30mL [facility] benzocaine- menthol (DERMOPLAST ) 20-0.5 % topical spray benzocaine- menthol (DERMOPLAST ) 20-0.5 % topical spray 05-13 15:38: 53 05-14 20:31 :23 Yes Topical, PRN, Starting on Mon05/13/25 at 1038, Until Mon05/14/25 at 1531, Routine, Perineum discomfort [facility] miSOPROStoL (CYTOTEC) tablet 1,000 mcg 05-13 15:15: 00 05-13 14:31 :00 No 1000ug 1,000 mcg, Rectal, ONCE, 1 dose, On Mon05/13/25 at 1015, Routine [facility] methylergon ovine (METHERGINE ) injection 0.2 mg 05-13 14:30: 00 05-13 13:06 :00 No .2mg 0.2 mg, Intramuscu lar, Once, 1 dose, On Mon05/13/25 at 0930, Routine [facility] bupivacaine 0.125% epidural infusion 250 mL 05-13 11:49: 00 05-13 19:42 :59 No Epidural, CONTINUOUS PRN, Starting on Mon05/13/25 at 0649, Until Mon05/13/25 at 1442, 250 mL, Intra-op [facility] FENTanyl (PF) (SUBLIMAZE) injection 05-13 11:45: 00 05-13 19:42 :59 No Epidural, ONCE INTRA PROCEDURE, Starting on Mon05/13/25 at 0645, Until Mon05/13/25 at 1442, Routine, Intra-op [facility] PIB FENTanyl 2 mcg/mL + bupivacaine 0.1% in NS 250 mL epidural bag 05-13 09:34: 00 05-13 19:42 :59 No Intra-op [facility] ondansetron (ZOFRAN (PF)) injection 4 mg ondansetron (ZOFRAN (PF)) injection 4 mg 05-13 09:00: 00 05-13 08:22 :00 Yes 4mg 4 mg, Slow IV Push, ONCE, On Mon05/13/25 at 0400, For 1 dose, Please give medication over 2-5 minutes. [facility] ropivacaine 0.2 % (NAROPIN (PF)) epidural infusion 05-13 00:05: 00 05-13 19:42 :59 No Epidural, CONTINUOUS PRN, Starting on Mon05/12/25 at 1905, Until Mon05/13/25 at 1442, Routine, Intra-op [facility] lidocaine-e pinephrine (XYLOCAINE W/EPINEPHRI NE) 1.5 %-1:200,000 injection 05-13 00:04: 00 05-13 19:42 :59 No Epidural, ONCE INTRA PROCEDURE, Starting on Mon05/12/25 at 1904, Until Mon05/13/25 at 1442, Routine, Intra-op [facility] lactated ringers IV infusion 500 mL 05-12 23:45: 00 05-13 00:10 :07 No 500mL at 999 mL/hr, 500 mL, IV Infusion, ONCE, 1 dose, On Mon05/12/25 at 1845, Routine [facility] hydrOXYzine (ATARAX) tablet 10 mg hydrOXYzine (ATARAX) tablet 10 mg 05-12 23:45: 00 05-12 23:38 :00 Yes 10mg 10 mg, Oral, ONCE, 1 dose, On Mon05/12/25 at 1845, Routine [facility] sodium citrate-cit chintan acid (BICITRA) 500-334 mg/5 mL solution 30 mL sodium citrate-cit chintan acid (BICITRA) 500-334 mg/5 mL solution 30 mL 05-12 22:50: 09 05-12 23:52 :00 Yes 30mL 30 mL, Oral, PRE-PROCED URE ONCE, 1 dose, Starting on Mon05/12/25 at 1750, Until Mon05/12/25 at 1852, Routine, Surgery/Pr ocedure [facility] morpHINE (4 mg/mL) injection 4 mg morpHINE (4 mg/mL) injection 4 mg 05-12 21:45: 00 05-12 20:57 :00 Yes 4mg 4 mg, Slow IV Push, ONCE, 1 dose, On Mon05/12/25 at 1645, Routine [facility] Oxytocin in Normal Saline 30 unit/500 mL IV infusion Soln Oxytocin in Normal Saline 30 unit/500 mL IV infusion Soln 05-12 16:45: 00 05-13 15:38 :56 Yes 0mU/min 0-42 bran-unit s/min (0-42 mL/hr), IV Infusion, CONTINUOUS , Starting on Mon05/12/25 at 1145, Infuse IV through a controlled infusion pump at a proximal port on the peripheral IV line. Oxytocin may be increased to 30 milliunits when ordered by a 3rd or 4th year resident or attending physician/ faculty. 3rd or 4th year resident must document a note that the increase to 30 milliunits was discussed with faculty. Oxytocin may be increased to 42 milliunits when ordered by a 3rd or 4th year resident or attending physician/ faculty. 3rd or 4th year resident must document a note that the increase to 42 milliunits was discussed with faculty. Max 42 bran-unit s/min. Oxytocin shall be maintained at a rate that achieves adequate contractio ns. "Adequate contractio ns" means 3-5 contractio ns in 10 minutes averaged over a 30-minute window -or- at least 200 MVU every 10 minutes for 2 hours if an IUPC is in place. Incrementa l dosage of oxytocin is determined by uterine and response; therefore the RN may increase or decrease the dosage by 6mu or discontinu e oxytocin based on maternal and assessment . See policy 7.11.52. For post-deliv eugenia uterotonic : Increase to 300 mL/hr for 1 hr then 150 mL/hr for 1 hr. For post delivery uterine atony: Start at 600 mL/hr for 1 hr then 150 mL/hr for 1 hr. [facility] morpHINE (4 mg/mL) injection 4 mg morpHINE (4 mg/mL) injection 4 mg 2024-05-12 15:00: 00 05-12 15:40 :00 Yes 4mg 4 mg, Slow IV Push, ONCE, 1 dose, On Mon05/12/25 at 1000, Routine [facility] miSOPROStol (CYTOTEC) quarter-tab let 50 mcg miSOPROStol (CYTOTEC) quarter-tab let 50 mcg 2024-05-12 13:15: 00 05-12 12:40 :00 Yes 50ug 50 mcg, Oral, ONCE, 1 dose, On Mon05/12/25 at 0815, Routine [facility] morpHINE (4 mg/mL) injection 4 mg morpHINE (4 mg/mL) injection 4 mg 05-12 11:45: 00 05-12 10:57 :00 Yes 4mg 4 mg, Slow IV Push, ONCE, 1 dose, On Mon05/12/25 at 0645, Routine [facility] morpHINE (4 mg/mL) injection 4 mg morpHINE (4 mg/mL) injection 4 mg 05-12 06:45: 00 05-12 05:55 :00 Yes 4mg 4 mg, Slow IV Push, ONCE, 1 dose, On Mon05/12/25 at 0145, Routine [facility] miSOPROStol (CYTOTEC) quarter-tab let 50 mcg miSOPROStol (CYTOTEC) quarter-tab let 50 mcg 5-05-12 04:45: 00 05-12 04:05 :00 Yes 50ug 50 mcg, Oral, ONCE, 1 dose, On Mon05/11/25 at 2345, Routine [facility] morpHINE (4 mg/mL) injection 4 mg morpHINE (4 mg/mL) injection 4 mg 2024-05-12 02:30: 00 05-12 01:54 :00 Yes 4mg 4 mg, Slow IV Push, ONCE, 1 dose, On Mon05/11/25 at 2130, Routine [facility] D5W-LR IV infusion 1,000 mL 05-12 00:23: 33 05-13 15:38 :56 No 1000mL at 1-75 mL/hr, IV Infusion, TITRATE, Starting on Mon05/11/25 at 1923, Until Mon05/13/25 at 1038, Routine [facility] rho(D) immune globulin (HYPERRHO/R HOGAM) syringe 300 mcg 02-27 15:15: 00 02-27 15:18 :21 No [id number] 300ug [facility] clindamycin 300 mg capsule 10-30 00:00: 00 11-07 05:59 :00 No [id number] 300mg Take 1 capsule by mouth in the morning and 1 capsule in the evening. Do all this for 7 days. [facility] metroNIDAZO LE 500 mg tablet 10-28 00:00: 00 10-30 00:00 :00 No [id number] 500mg Take 1 tablet by mouth every 12 (twelve) hours for 7 days. [facility] cyclobenzap rine 5 mg tablet 10-14 00:00: 00 05-14 00:00 :00 No [id number] 5mg Take 1 tablet by mouth in the morning and 1 tablet at noon and 1 tablet in the evening. [facility] PNV 67-iron ps-folate no.1-dha (VITAFOL ULTRA) 29 mg iron- 1 mg-200 mg Cap 2023-10 00:00: 00 05-14 00:00 :00 No [id number] 1{each} Take 1 Each by mouth in the morning. [facility] proMETHazin e 25 mg tablet 2023-10 00:00: 00 05-14 00:00 :00 No [id number] 25mg Take 1 tablet by mouth every 6 (six) hours as needed for Nausea and Vomiting (N/V). [facility] maalox:diph enhydrAMINE :lidocaine 2 % viscous 1:1:1 (FIRST-MOUT HWASH BLM) oral suspension 15 mL 05-23 21:00: 00 05-23 22:18 :00 No 15mL 15 mL, Oral, ONCE, 1 dose, On Mon05/23/23 at 1600, Routine [facility] pantoprazol e (PROTONIX) injection 40 mg 05-23 21:00: 00 05-23 22:17 :00 No 40mg 40 mg, Slow IV Push, ONCE, 1 dose, On Mon05/23/23 at 1600 [facility] ondansetron (ZOFRAN (PF)) injection 4 mg 05-23 21:00: 00 05-23 22:17 :00 No 4mg 4 mg, Slow IV Push, ONCE, 1 dose, On Mon05/23/23 at 1600, LEOLA [facility] ondansetron 4 mg disintegrat ing tablet 05-23 00:00: 00 09-18 00:00 :00 No [id number] 4mg Take 1 tablet by mouth every 8 (eight) hours as needed for Nausea and Vomiting (N/V). [facility] famotidine (PEPCID) 20 mg tablet 05-23 00:00: 00 06-23 04:59 :00 No [id number] 20mg Take 1 tablet by mouth in the morning and 1 tablet in the evening. Do all this for 30 days. [facility] predniSONE (DELTASONE) tablet 10 mg 02-24 00:30: 00 02-24 00:39 :00 No 10mg 10 mg, Oral, ONCE, 1 dose, On Elizabeth 02/23/23 at 1930, LEOLA [facility] amoxicillin -clavulanat e (AUGMENTIN) 875-125 mg per tablet 1 tablet 02-24 00:28: 00 02-24 00:38 :00 No 1{tbl} 1 tablet, Oral, ONCE, 1 dose, On Elizabeth 02/23/23 at 1930, LEOLA
Re ason for Anti-Infec tive: Documented Infection< br>Documen candido Infection Site: HEENT
D uration of Therapy: Other (see Comments) [facility] ketorolac (TORADOL) injection 30 mg 02-23 23:09: 00 02-23 23:23 :00 No 30mg 30 mg, Intramuscu lar, ONCE, 1 dose, On Elizabeth 02/23/23 at 1815, LEOLA [facility] amoxicillin -clavulanat e 875-125 mg per tablet 02-23 00:00: 00 09-18 00:00 :00 No [id number] 1{tbl} Take 1 tablet by mouth every 12 (twelve) hours. [facility] predniSONE 10 mg tablet 02-23 00:00: 00 02-27 04:59 :00 No [id number] 30mg Take 3 tablets by mouth in the morning for 3 days. [facility] ibuprofen (IBU) tablet 600 mg 10-19 05:45: 00 10-19 04:40 :00 No 600mg 600 mg, Oral, ONCE, 1 dose, On 10/18/21 at 2345, [facility] HYDROcodone -acetaminop hen (NORCO) 10-325 mg tablet 1 tablet 05-22 13:15: 00 05-22 12:30 :00 No 1{tbl} 1 tablet, Oral, ONCE, 1 dose, 05/22/21 at 0815, Routine [facility] ibuprofen 800 mg tablet 05-22 00:00: 00 02-23 00:00 :00 No [id number] 800mg Take 1 tablet by mouth every 8 (eight) hours as needed for Pain (scale 4-6) or Temp > 38.5 C. [facility] cefTRIAXone (ROCEPHIN) 1,000 mg in NaCl 0.9% (NS) 50 mL MINI-BAG 03-12 16:00: 00 03-12 16:18 :00 No 1000mg 1,000 mg, IV Piggyback, ONCE, 1 dose, Mon03/12/21 at 1100, 50 mL
Reas on for Anti-Infec tive: Empiric Therapy for Suspected Infection< br>Empiric Therapy Site: Urine
D uration of therapy: 72 hours [facility] KCL (KLOR-CON M20) tablet 40 mEq 03-12 12:45: 00 03-12 13:07 :00 No 40meq 40 mEq, Oral, ONCE, 1 dose, Mon03/12/21 at 0745, Routine [facility] morpHINE injection 4 mg 03-12 07:16: 17 Yes 4mg 4 mg, Slow IV Push, Q4HPRN, Starting Mon03/12/21 at 0216, Until Discontinu ed, Routine, Pain (scale 7-10) [facility] pantoprazol e (PROTONIX) 40 mg in NaCl 0.9% (NS) 100 mL MINI-BAG 03-12 00:15: 00 Yes 40mg 40 mg, IV Piggyback, Q24H, First dose on Mon03/11/21 at 1915, Until Discontinu ed, 100 mL [facility] ondansetron 4 mg tablet 03-12 00:00: 00 03-23 04:59 :00 No [id number] 4mg Take 1 tablet by mouth every 8 (eight) hours for 10 days. [facility] cephALEXin 500 mg capsule 03-12 00:00: 00 03-16 04:59 :00 No [id number] 500mg Take 1 capsule by mouth 2 (two) times daily for 3 days. [facility] enoxaparin (LOVENOX) injection 30 mg 03-11 22:00: 00 Yes 30mg 30 mg, Subcutaneo us, DAILY, First dose on Mon03/11/21 at 1700, Until Discontinu ed, Routine [facility] D5W-LR IV infusion 1,000 mL 03-11 21:45: 00 Yes 1000mL at 125 mL/hr, IV Infusion, CONTINUOUS , Starting Mon03/11/21 at 1645, Until Discontinu ed, Routine [facility] morpHINE injection 4 mg 03-11 21:15: 00 03-11 20:32 :00 No 4mg 4 mg, Slow IV Push, ONCE, 1 dose, Elizabeth 03/11/21 at 1615, STAT [facility] ondansetron (ZOFRAN (PF)) injection 4 mg 03-11 20:38: 54 Yes 4mg 4 mg, Slow IV Push, Q6HPRN, Starting Elizabeth 03/11/21 at 1538, Until Discontinu ed, Routine, Nausea and Vomiting (N/V) [facility] acetaminoph en-codeine (TYLENOL #3) 300-30 mg tablet 1 tablet 03-11 20:38: 49 03-13 20:37 :49 No 1{tbl} 1 tablet, Oral, Q6HPRN, Starting Elizabeth 03/11/21 at 1538, Until 03/13/21 at 1537, Routine, Pain (scale 4-6) [facility] acetaminoph en (TYLENOL) tablet 650 mg 03-11 20:38: 42 Yes 650mg 650 mg, Oral, Q6HPRN, Starting Elizabeth 03/11/21 at 1538, Until Discontinu ed, Routine, Pain (scale 1-3) [facility] cefTRIAXone (ROCEPHIN) 1,000 mg in NaCl 0.9% (NS) 50 mL MINI-BAG 03-11 18:00: 00 03-11 17:41 :00 No 1000mg 1,000 mg, IV Piggyback, ONCE, 1 dose, Elizabeth 03/11/21 at 1300, 50 mL
Reas on for Anti-Infec tive: Empiric Therapy for Suspected Infection< br>Empiric Therapy Site: Abdominal< br>Duratio n of therapy: 72 hours [facility] iopamidol (ISOVUE 370-500 mL) injection 120 mL 03-11 17:00: 00 03-11 17:00 :00 No [id number] 120mL 120 mL, Intravenou s, ONCE, 1 dose, Elizabeth 03/11/21 at 1200, Routine [facility] morpHINE injection 4 mg 03-11 16:45: 00 03-11 15:43 :00 No 4mg 4 mg, Slow IV Push, ONCE, 1 dose, Elizabeth 03/11/21 at 1145, STAT [facility] [facility] ondansetron (ZOFRAN (PF)) injection 4 mg 03-11 16:30: 00 03-11 15:41 :00 No 4mg 4 mg, Slow IV Push, ONCE, 1 dose, Elizabeth 03/11/21 at 1130[facility] NaCl 0.9% (NS) bolus infusion 1,000 mL 03-11 16:30: 00 03-11 19:19 :00 No 1000mL at 999 mL/hr, 1,000 mL, IV Infusion, ONCE, 1 dose, Elizabeth 03/11/21 at 1130, STAT [facility] sodium chloride (NS) injection 5 mL 03-11 14:57: 42 Yes 5mL 5 mL, Intravenou s, PRN, Starting Elizabeth 03/11/21 at 0957, Until Discontinu ed, Routine, IV line flushing [facility] codeine-gua ifenesin (ROBITUSSIN AC) 10-100 mg/5 mL solution 10 mL 03-06 05:00: 00 03-06 04:26 :00 No 10mL 10 mL, Oral, ONCE, 1 dose, 03/06/21 at 0000, [facility] dexamethaso ne (DECADRON PHOSPHATE) injection 10 mg 03-06 05:00: 00 03-06 04:19 :00 No 10mg 10 mg, Intramuscu lar, ONCE, 1 dose, 03/06/21 at 0000, STAT [facility] methylPREDN ISolone (MEDROL, TILA,) 4 mg tablets 03-06 00:00: 00 Yes [id number] Take by mouth SEE-INSTRU CTIONS. follow package directions [facility] azithromyci n 250 mg tablet 03-06 00:00: 00 Yes [id number] 250mg Take 1 tablet by mouth daily. Take 500 mg day 1, then 250 mg days 2 to 5. [facility] albuterol 90 mcg/actuati on inhaler 03-06 00:00: 00 05-22 00:00 :00 No [id number] 2{puff} Inhale 2 Puffs every 4 (four) hours as needed for Wheezing or Shortness of Breath. [facility] codeine-gua ifenesin 10-100 mg/5 mL solution 03-06 00:00: 00 03-14 04:59 :00 No [id number] 10mL Take 10 mL by mouth every 6 (six) hours as needed for Cough for up to 7 days. Indication s: acute pain [facility] benzonatate 100 mg capsule 02-24 00:00: 00 03-12 00:00 :00 No [id number] 100mg Take 1 capsule by mouth 3 (three) times daily as needed for Cough. [facility] predniSONE 20 mg tablet 02-24 00:00: 00 03-01 04:59 :00 No [id number] 20mg Take 1 tablet by mouth 2 (two) times daily for 4 days. [facility] medroxyPROG ESTERone (DEPO-PROVE RA) injection 150 mg 2018-10 15:00: 00 06-30 14:59 :00 No [id number] 150mg [facility] traMADOL (ULTRAM) 50 mg tablet 16 00:00: 00 03-12 00:00 :00 No 50mg Take 1 tablet by mouth every 6 (six) hours as needed for Pain (scale 4-6). [facility] Immunizations Ordered Immunization Name Filled Immunization Name Date Status Comments Source MMR 2025-05-14 00:00:00 Completed [facility] Varicella (varivax)(chicken pox) 2025-05-14 00:00:00 Completed TDAP 2025-02-27 00:00:00 Completed Flu Injectable [facility] Pres-Free (FLUCELVAX) 2024-09-18 00:00:00 Completed [facility] TDAP (ADACEL) VACCINE 2021-10-19 00:00:00 Completed [facility] Meningococcal Polysaccharide (groups A, C, Y and W-135) conjugate vaccine (MCV4P) 2021-10-19 00:00:00 Completed [facility] HPV9 2021-10-19 00:00:00 Completed [facility] DTAP 2021-10-19 00:00:00 Completed [facility] HIB 3 Dose Schedule 2021-10-19 00:00:00 Completed [facility] HEPATITIS A 2021-10-19 00:00:00 Completed [facility] Hep B, Adol or Pedi Dosage 2021-10-19 00:00:00 Completed [facility] HPV 2021-10-19 00:00:00 Completed [facility] MMR 2021-10-19 00:00:00 Completed [facility] Pneumococcal 13 Conjugate, PCV13 (Prevnar 13) 2021-10-19 00:00:00 Completed [facility] Polio (IPV/OPV) 2021-10-19 00:00:00 Completed [facility] Proquad (MMR/VARICELLA) 2021-10-19 00:00:00 Completed [facility] Varicella (varivax)(chicken pox) 2021-10-19 00:00:00 Completed [facility] TDAP (ADACEL) VACCINE 2021-10-19 00:00:00 Completed [facility] Meningococcal Polysaccharide (groups A, C, Y and W-135) conjugate vaccine (MCV4P) 2021-10-19 00:00:00 Completed [facility] HPV9 2021-10-19 00:00:00 Completed [facility] DTAP 2021-10-19 00:00:00 Completed [facility] HIB 3 Dose Schedule 2021-10-19 00:00:00 Completed [facility] HEPATITIS A 2021-10-19 00:00:00 Completed [facility] Hep B, Adol or Pedi Dosage 2021-10-19 00:00:00 Completed [facility] HPV 2021-10-19 00:00:00 Completed [facility] MMR 2021-10-19 00:00:00 Completed [facility] Pneumococcal 13 Conjugate, PCV13 (Prevnar 13) 2021-10-19 00:00:00 Completed [facility] Polio (IPV/OPV) 2021-10-19 00:00:00 Completed [facility] Proquad (MMR/VARICELLA) 2021-10-19 00:00:00 Completed [facility] Varicella (varivax)(chicken pox) 2021-10-19 00:00:00 Completed [facility] HPV 2018-10-18 00:00:00 Completed [facility] HPV9 2018-10-18 00:00:00 Completed [facility] HPV 2018-10-18 00:00:00 Completed [facility] HPV9 2018-10-18 00:00:00 Completed [facility] HPV 2018-10-18 00:00:00 Completed [facility] HPV9 2018-10-18 00:00:00 Completed [facility] HPV 2018-10-18 00:00:00 Completed [facility] HPV9 2018-10-18 00:00:00 Completed [facility] HPV 2018-10-18 00:00:00 Completed [facility] HPV9 2018-10-18 00:00:00 Completed [facility] HPV 2018-10-18 00:00:00 Completed [facility] HPV9 2018-10-18 00:00:00 Completed [facility] HPV 2018-10-18 00:00:00 Completed [facility] HPV9 2018-10-18 00:00:00 Completed [facility] HPV 2018-10-18 00:00:00 Completed [facility] HPV9 2018-10-18 00:00:00 Completed [facility] HPV 2018-10-18 00:00:00 Completed [facility] HPV9 2018-10-18 00:00:00 Completed [facility] HPV 2018-10-18 00:00:00 Completed [facility] HPV9 2018-10-18 00:00:00 Completed [facility] HPV 2018-10-18 00:00:00 Completed HPV9 2018-10-18 00:00:00 Completed [facility] HPV 2018-07-18 00:00:00 Completed [facility] HPV9 2018-07-18 00:00:00 Completed [facility] HPV 2018-07-18 00:00:00 Completed [facility] HPV9 2018-07-18 00:00:00 Completed [facility] HPV 2018-07-18 00:00:00 Completed [facility] HPV9 2018-07-18 00:00:00 Completed [facility] HPV 2018-07-18 00:00:00 Completed [facility] HPV9 2018-07-18 00:00:00 Completed [facility] HPV 2018-07-18 00:00:00 Completed [facility] HPV9 2018-07-18 00:00:00 Completed [facility] HPV 2018-07-18 00:00:00 Completed [facility] HPV9 2018-07-18 00:00:00 Completed [facility] HPV 2018-07-18 00:00:00 Completed [facility] HPV9 2018-07-18 00:00:00 Completed [facility] HPV 2018-07-18 00:00:00 Completed [facility] HPV9 2018-07-18 00:00:00 Completed [facility] HPV 2018-07-18 00:00:00 Completed [facility] HPV9 2018-07-18 00:00:00 Completed [facility] HPV 2018-07-18 00:00:00 Completed [facility] HPV9 2018-07-18 00:00:00 Completed [facility] HPV 2018-07-18 00:00:00 Completed HPV9 2018-07-18 00:00:00 Completed [facility] Influenza, seasonal, inj Influenza, seasonal, inj 2017-11-21 00:00:00 Completed [facility] HPV 2015-05-22 00:00:00 Completed [facility] TDAP (ADACEL) VACCINE 2015-05-22 00:00:00 Completed [facility] HPV9 2015-05-22 00:00:00 Completed [facility] Meningococcal Polysaccharide (groups A, C, Y and W-135) conjugate vaccine (MCV4P) 2015-05-22 00:00:00 Completed [facility] HPV 2015-05-22 00:00:00 Completed [facility] TDAP (ADACEL) VACCINE 2015-05-22 00:00:00 Completed [facility] HPV9 2015-05-22 00:00:00 Completed [facility] Meningococcal Polysaccharide (groups A, C, Y and W-135) conjugate vaccine (MCV4P) 2015-05-22 00:00:00 Completed [facility] HPV 2015-05-22 00:00:00 Completed [facility] TDAP (ADACEL) VACCINE 2015-05-22 00:00:00 Completed [facility] HPV9 2015-05-22 00:00:00 Completed [facility] Meningococcal Polysaccharide (groups A, C, Y and W-135) conjugate vaccine (MCV4P) 2015-05-22 00:00:00 Completed [facility] HPV 2015-05-22 00:00:00 Completed [facility] TDAP (ADACEL) VACCINE 2015-05-22 00:00:00 Completed [facility] HPV9 2015-05-22 00:00:00 Completed [facility] Meningococcal Polysaccharide (groups A, C, Y and W-135) conjugate vaccine (MCV4P) 2015-05-22 00:00:00 Completed [facility] HPV 2015-05-22 00:00:00 Completed [facility] TDAP (ADACEL) VACCINE 2015-05-22 00:00:00 Completed [facility] HPV9 2015-05-22 00:00:00 Completed [facility] Meningococcal Polysaccharide (groups A, C, Y and W-135) conjugate vaccine (MCV4P) 2015-05-22 00:00:00 Completed [facility] HPV 2015-05-22 00:00:00 Completed [facility] TDAP (ADACEL) VACCINE 2015-05-22 00:00:00 Completed [facility] HPV9 2015-05-22 00:00:00 Completed [facility] Meningococcal Polysaccharide (groups A, C, Y and W-135) conjugate vaccine (MCV4P) 2015-05-22 00:00:00 Completed [facility] HPV 2015-05-22 00:00:00 Completed [facility] TDAP (ADACEL) VACCINE 2015-05-22 00:00:00 Completed [facility] HPV9 2015-05-22 00:00:00 Completed [facility] Meningococcal Polysaccharide (groups A, C, Y and W-135) conjugate vaccine (MCV4P) 2015-05-22 00:00:00 Completed [facility] HPV 2015-05-22 00:00:00 Completed [facility] TDAP (ADACEL) VACCINE 2015-05-22 00:00:00 Completed [facility] HPV9 2015-05-22 00:00:00 Completed [facility] Meningococcal Polysaccharide (groups A, C, Y and W-135) conjugate vaccine (MCV4P) 2015-05-22 00:00:00 Completed [facility] HPV 2015-05-22 00:00:00 Completed [facility] TDAP (ADACEL) VACCINE 2015-05-22 00:00:00 Completed [facility] HPV9 2015-05-22 00:00:00 Completed [facility] Meningococcal Polysaccharide (groups A, C, Y and W-135) conjugate vaccine (MCV4P) 2015-05-22 00:00:00 Completed [facility] HPV 2015-05-22 00:00:00 Completed [facility] TDAP (ADACEL) VACCINE 2015-05-22 00:00:00 Completed [facility] HPV9 2015-05-22 00:00:00 Completed Meningococcal Polysaccharide (groups A, C, Y and W-135) conjugate vaccine (MCV4P) 2015-05-22 00:00:00 Completed HPV 2015-05-22 00:00:00 Completed TDAP (ADACEL) VACCINE 2015-05-22 00:00:00 Completed [facility] HPV9 2015-05-22 00:00:00 Completed [facility] Meningococcal Polysaccharide (groups A, C, Y and W-135) conjugate vaccine (MCV4P) 2015-05-22 00:00:00 Completed [facility] DTAP 2007-05-08 00:00:00 Completed [facility] HEPATITIS A 2007-05-08 00:00:00 Completed [facility] Polio (IPV/OPV) 2007-05-08 00:00:00 Completed [facility] Proquad (MMR/VARICELLA) 2007-05-08 00:00:00 Completed [facility] DTAP 2007-05-08 00:00:00 Completed [facility] HEPATITIS A 2007-05-08 00:00:00 Completed [facility] Polio (IPV/OPV) 2007-05-08 00:00:00 Completed [facility] Proquad (MMR/VARICELLA) 2007-05-08 00:00:00 Completed [facility] DTAP 2007-05-08 00:00:00 Completed [facility] HEPATITIS A 2007-05-08 00:00:00 Completed [facility] Polio (IPV/OPV) 2007-05-08 00:00:00 Completed [facility] Proquad (MMR/VARICELLA) 2007-05-08 00:00:00 Completed [facility] DTAP 2007-05-08 00:00:00 Completed [facility] HEPATITIS A 2007-05-08 00:00:00 Completed [facility] Polio (IPV/OPV) 2007-05-08 00:00:00 Completed [facility] Proquad (MMR/VARICELLA) 2007-05-08 00:00:00 Completed [facility] DTAP 2007-05-08 00:00:00 Completed [facility] HEPATITIS A 2007-05-08 00:00:00 Completed [facility] Polio (IPV/OPV) 2007-05-08 00:00:00 Completed [facility] Proquad (MMR/VARICELLA) 2007-05-08 00:00:00 Completed [facility] DTAP 2007-05-08 00:00:00 Completed [facility] HEPATITIS A 2007-05-08 00:00:00 Completed [facility] Polio (IPV/OPV) 2007-05-08 00:00:00 Completed [facility] Proquad (MMR/VARICELLA) 2007-05-08 00:00:00 Completed [facility] DTAP 2007-05-08 00:00:00 Completed [facility] HEPATITIS A 2007-05-08 00:00:00 Completed [facility] Polio (IPV/OPV) 2007-05-08 00:00:00 Completed [facility] Proquad (MMR/VARICELLA) 2007-05-08 00:00:00 Completed [facility] DTAP 2007-05-08 00:00:00 Completed [facility] HEPATITIS A 2007-05-08 00:00:00 Completed [facility] Polio (IPV/OPV) 2007-05-08 00:00:00 Completed [facility] Proquad (MMR/VARICELLA) 2007-05-08 00:00:00 Completed [facility] DTAP 2007-05-08 00:00:00 Completed [facility] HEPATITIS A 2007-05-08 00:00:00 Completed [facility] Polio (IPV/OPV) 2007-05-08 00:00:00 Completed [facility] Proquad (MMR/VARICELLA) 2007-05-08 00:00:00 Completed [facility] DTAP 2007-05-08 00:00:00 Completed [facility] HEPATITIS A 2007-05-08 00:00:00 Completed [facility] Polio (IPV/OPV) 2007-05-08 00:00:00 Completed [facility] Proquad (MMR/VARICELLA) 2007-05-08 00:00:00 Completed [facility] DTAP 2007-05-08 00:00:00 Completed HEPATITIS A 2007-05-08 00:00:00 Completed Polio (IPV/OPV) 2007-05-08 00:00:00 Completed Proquad (MMR/VARICELLA) 2007-05-08 00:00:00 Completed DTAP 2006-02-09 00:00:00 Completed [facility] HEPATITIS A 2006-02-09 00:00:00 Completed [facility] Pneumococcal 13 Conjugate, PCV13 (Prevnar 13) 2006-02-09 00:00:00 Completed [facility] DTAP 2006-02-09 00:00:00 Completed [facility] HEPATITIS A 2006-02-09 00:00:00 Completed [facility] Pneumococcal 13 Conjugate, PCV13 (Prevnar 13) 2006-02-09 00:00:00 Completed [facility] DTAP 2006-02-09 00:00:00 Completed [facility] HEPATITIS A 2006-02-09 00:00:00 Completed [facility] Pneumococcal 13 Conjugate, PCV13 (Prevnar 13) 2006-02-09 00:00:00 Completed [facility] DTAP 2006-02-09 00:00:00 Completed [facility] HEPATITIS A 2006-02-09 00:00:00 Completed [facility] Pneumococcal 13 Conjugate, PCV13 (Prevnar 13) 2006-02-09 00:00:00 Completed [facility] DTAP 2006-02-09 00:00:00 Completed [facility] HEPATITIS A 2006-02-09 00:00:00 Completed [facility] Pneumococcal 13 Conjugate, PCV13 (Prevnar 13) 2006-02-09 00:00:00 Completed [facility] DTAP 2006-02-09 00:00:00 Completed [facility] HEPATITIS A 2006-02-09 00:00:00 Completed [facility] Pneumococcal 13 Conjugate, PCV13 (Prevnar 13) 2006-02-09 00:00:00 Completed [facility] DTAP 2006-02-09 00:00:00 Completed [facility] HEPATITIS A 2006-02-09 00:00:00 Completed [facility] Pneumococcal 13 Conjugate, PCV13 (Prevnar 13) 2006-02-09 00:00:00 Completed [facility] DTAP 2006-02-09 00:00:00 Completed [facility] HEPATITIS A 2006-02-09 00:00:00 Completed [facility] Pneumococcal 13 Conjugate, PCV13 (Prevnar 13) 2006-02-09 00:00:00 Completed [facility] DTAP 2006-02-09 00:00:00 Completed [facility] HEPATITIS A 2006-02-09 00:00:00 Completed [facility] Pneumococcal 13 Conjugate, PCV13 (Prevnar 13) 2006-02-09 00:00:00 Completed [facility] DTAP 2006-02-09 00:00:00 Completed [facility] HEPATITIS A 2006-02-09 00:00:00 Completed [facility] Pneumococcal 13 Conjugate, PCV13 (Prevnar 13) 2006-02-09 00:00:00 Completed [facility] DTAP 2006-02-09 00:00:00 Completed HEPATITIS A 2006-02-09 00:00:00 Completed Pneumococcal 13 Conjugate, PCV13 (Prevnar 13) 2006-02-09 00:00:00 Completed DTAP 2005-03-14 00:00:00 Completed [facility] Hep B, Adol or Pedi Dosage 2005-03-14 00:00:00 Completed [facility] DTAP 2005-03-14 00:00:00 Completed [facility] Hep B, Adol or Pedi Dosage 2005-03-14 00:00:00 Completed [facility] DTAP 2005-03-14 00:00:00 Completed [facility] Hep B, Adol or Pedi Dosage 2005-03-14 00:00:00 Completed [facility] DTAP 2005-03-14 00:00:00 Completed [facility] Hep B, Adol or Pedi Dosage 2005-03-14 00:00:00 Completed [facility] DTAP 2005-03-14 00:00:00 Completed [facility] Hep B, Adol or Pedi Dosage 2005-03-14 00:00:00 Completed [facility] DTAP 2005-03-14 00:00:00 Completed [facility] Hep B, Adol or Pedi Dosage 2005-03-14 00:00:00 Completed [facility] DTAP 2005-03-14 00:00:00 Completed [facility] Hep B, Adol or Pedi Dosage 2005-03-14 00:00:00 Completed [facility] DTAP 2005-03-14 00:00:00 Completed [facility] Hep B, Adol or Pedi Dosage 2005-03-14 00:00:00 Completed [facility] DTAP 2005-03-14 00:00:00 Completed [facility] Hep B, Adol or Pedi Dosage 2005-03-14 00:00:00 Completed [facility] DTAP 2005-03-14 00:00:00 Completed [facility] Hep B, Adol or Pedi Dosage 2005-03-14 00:00:00 Completed [facility] DTAP 2005-03-14 00:00:00 Completed Hep B, Adol or Pedi Dosage 2005-03-14 00:00:00 Completed DTAP 2004-08-04 00:00:00 Completed [facility] HIB 3 Dose Schedule 2004-08-04 00:00:00 Completed [facility] Polio (IPV/OPV) 2004-08-04 00:00:00 Completed [facility] DTAP 2004-08-04 00:00:00 Completed [facility] HIB 3 Dose Schedule 2004-08-04 00:00:00 Completed [facility] Polio (IPV/OPV) 2004-08-04 00:00:00 Completed [facility] DTAP 2004-08-04 00:00:00 Completed [facility] HIB 3 Dose Schedule 2004-08-04 00:00:00 Completed [facility] Polio (IPV/OPV) 2004-08-04 00:00:00 Completed [facility] DTAP 2004-08-04 00:00:00 Completed [facility] HIB 3 Dose Schedule 2004-08-04 00:00:00 Completed [facility] Polio (IPV/OPV) 2004-08-04 00:00:00 Completed [facility] DTAP 2004-08-04 00:00:00 Completed [facility] HIB 3 Dose Schedule 2004-08-04 00:00:00 Completed [facility] Polio (IPV/OPV) 2004-08-04 00:00:00 Completed [facility] DTAP 2004-08-04 00:00:00 Completed [facility] HIB 3 Dose Schedule 2004-08-04 00:00:00 Completed [facility] Polio (IPV/OPV) 2004-08-04 00:00:00 Completed [facility] DTAP 2004-08-04 00:00:00 Completed [facility] HIB 3 Dose Schedule 2004-08-04 00:00:00 Completed [facility] Polio (IPV/OPV) 2004-08-04 00:00:00 Completed [facility] DTAP 2004-08-04 00:00:00 Completed [facility] HIB 3 Dose Schedule 2004-08-04 00:00:00 Completed [facility] Polio (IPV/OPV) 2004-08-04 00:00:00 Completed [facility] DTAP 2004-08-04 00:00:00 Completed [facility] HIB 3 Dose Schedule 2004-08-04 00:00:00 Completed [facility] Polio (IPV/OPV) 2004-08-04 00:00:00 Completed [facility] DTAP 2004-08-04 00:00:00 Completed [facility] HIB 3 Dose Schedule 2004-08-04 00:00:00 Completed [facility] Polio (IPV/OPV) 2004-08-04 00:00:00 Completed [facility] DTAP 2004-08-04 00:00:00 Completed HIB 3 Dose Schedule 2004-08-04 00:00:00 Completed Polio (IPV/OPV) 2004-08-04 00:00:00 Completed DTAP 2003-11-20 00:00:00 Completed [facility] HIB 3 Dose Schedule 2003-11-20 00:00:00 Completed [facility] Hep B, Adol or Pedi Dosage 2003-11-20 00:00:00 Completed [facility] MMR 2003-11-20 00:00:00 Completed [facility] Polio (IPV/OPV) 2003-11-20 00:00:00 Completed [facility] Varicella (varivax)(chicken pox) 2003-11-20 00:00:00 Completed [facility] DTAP 2003-11-20 00:00:00 Completed [facility] HIB 3 Dose Schedule 2003-11-20 00:00:00 Completed [facility] Hep B, Adol or Pedi Dosage 2003-11-20 00:00:00 Completed [facility] MMR 2003-11-20 00:00:00 Completed [facility] Polio (IPV/OPV) 2003-11-20 00:00:00 Completed [facility] Varicella (varivax)(chicken pox) 2003-11-20 00:00:00 Completed [facility] DTAP 2003-11-20 00:00:00 Completed [facility] HIB 3 Dose Schedule 2003-11-20 00:00:00 Completed [facility] Hep B, Adol or Pedi Dosage 2003-11-20 00:00:00 Completed [facility] MMR 2003-11-20 00:00:00 Completed [facility] Polio (IPV/OPV) 2003-11-20 00:00:00 Completed [facility] Varicella (varivax)(chicken pox) 2003-11-20 00:00:00 Completed [facility] DTAP 2003-11-20 00:00:00 Completed [facility] HIB 3 Dose Schedule 2003-11-20 00:00:00 Completed [facility] Hep B, Adol or Pedi Dosage 2003-11-20 00:00:00 Completed [facility] MMR 2003-11-20 00:00:00 Completed [facility] Polio (IPV/OPV) 2003-11-20 00:00:00 Completed [facility] Varicella (varivax)(chicken pox) 2003-11-20 00:00:00 Completed [facility] DTAP 2003-11-20 00:00:00 Completed [facility] HIB 3 Dose Schedule 2003-11-20 00:00:00 Completed [facility] Hep B, Adol or Pedi Dosage 2003-11-20 00:00:00 Completed [facility] MMR 2003-11-20 00:00:00 Completed [facility] Polio (IPV/OPV) 2003-11-20 00:00:00 Completed [facility] Varicella (varivax)(chicken pox) 2003-11-20 00:00:00 Completed [facility] DTAP 2003-11-20 00:00:00 Completed [facility] HIB 3 Dose Schedule 2003-11-20 00:00:00 [facility] [facility], Adol or Pedi Dosage 2003-11-20 00:00:00 Completed [facility] MMR 2003-11-20 00:00:00 Completed [facility] Polio (IPV/OPV) 2003-11-20 00:00:00 Completed [facility] Varicella (varivax)(chicken pox) 2003-11-20 00:00:00 Completed [facility] DTAP 2003-11-20 00:00:00 Completed [facility] HIB 3 Dose Schedule 2003-11-20 00:00:00 Completed [facility] Hep B, Adol or Pedi Dosage 2003-11-20 00:00:00 Completed [facility] MMR 2003-11-20 00:00:00 Completed [facility] Polio (IPV/OPV) 2003-11-20 00:00:00 Completed [facility] Varicella (varivax)(chicken pox) 2003-11-20 00:00:00 Completed [facility] DTAP 2003-11-20 00:00:00 Completed [facility] HIB 3 Dose Schedule 2003-11-20 00:00:00 Completed [facility] Hep B, Adol or Pedi Dosage 2003-11-20 00:00:00 Completed [facility] MMR 2003-11-20 00:00:00 Completed [facility] Polio (IPV/OPV) 2003-11-20 00:00:00 Completed [facility] Varicella (varivax)(chicken pox) 2003-11-20 00:00:00 Completed [facility] DTAP 2003-11-20 00:00:00 Completed [facility] HIB 3 Dose Schedule 2003-11-20 00:00:00 Completed [facility] Hep B, Adol or Pedi Dosage 2003-11-20 00:00:00 Completed [facility] MMR 2003-11-20 00:00:00 Completed [facility] Polio (IPV/OPV) 2003-11-20 00:00:00 Completed [facility] Varicella (varivax)(chicken pox) 2003-11-20 00:00:00 Completed [facility] DTAP 2003-11-20 00:00:00 Completed [facility] HIB 3 Dose Schedule 2003-11-20 00:00:00 Completed [facility] Hep B, Adol or Pedi Dosage 2003-11-20 00:00:00 Completed [facility] MMR 2003-11-20 00:00:00 Completed [facility] Polio (IPV/OPV) 2003-11-20 00:00:00 Completed [facility] Varicella (varivax)(chicken pox) 2003-11-20 00:00:00 Completed [facility] DTAP 2003-11-20 00:00:00 Completed [facility] HIB 3 Dose Schedule 2003-11-20 00:00:00 Completed Hep B, Adol or Pedi Dosage 2003-11-20 00:00:00 Completed MMR 2003-11-20 00:00:00 Completed Polio (IPV/OPV) 2003-11-20 00:00:00 Completed Varicella (varivax)(chicken pox) 2003-11-20 00:00:00 Completed Hep B, Adol or Pedi Dosage 2003-02-25 00:00:00 Completed [facility] Polio (IPV/OPV) 2003-02-25 00:00:00 Completed [facility] Hep B, Adol or Pedi Dosage 2003-02-25 00:00:00 Completed [facility] Polio (IPV/OPV) 2003-02-25 00:00:00 Completed [facility] Hep B, Adol or Pedi Dosage 2003-02-25 00:00:00 Completed [facility] Polio (IPV/OPV) 2003-02-25 00:00:00 Completed [facility] Hep B, Adol or Pedi Dosage 2003-02-25 00:00:00 Completed [facility] Polio (IPV/OPV) 2003-02-25 00:00:00 Completed [facility] Hep B, Adol or Pedi Dosage 2003-02-25 00:00:00 Completed [facility] Polio (IPV/OPV) 2003-02-25 00:00:00 Completed [facility] Hep B, Adol or Pedi Dosage 2003-02-25 00:00:00 Completed [facility] Polio (IPV/OPV) 2003-02-25 00:00:00 Completed [facility] Hep B, Adol or Pedi Dosage 2003-02-25 00:00:00 Completed [facility] Polio (IPV/OPV) 2003-02-25 00:00:00 Completed [facility] Hep B, Adol or Pedi Dosage 2003-02-25 00:00:00 Completed [facility] Polio (IPV/OPV) 2003-02-25 00:00:00 Completed [facility] Hep B, Adol or Pedi Dosage 2003-02-25 00:00:00 Completed [facility] Polio (IPV/OPV) 2003-02-25 00:00:00 Completed [facility] Hep B, Adol or Pedi Dosage 2003-02-25 00:00:00 Completed [facility] Polio (IPV/OPV) 2003-02-25 00:00:00 Completed [facility] Hep B, Adol or Pedi Dosage 2003-02-25 00:00:00 Completed Polio (IPV/OPV) 2003-02-25 00:00:00 Completed Hep B, Adol or Pedi Dosage 2002 00:00:00 Completed [facility] Hep B, Adol or Pedi Dosage 2002 00:00:00 Completed [facility] Hep B, Adol or Pedi Dosage 2002 00:00:00 Completed [facility] Hep B, Adol or Pedi Dosage 2002 00:00:00 Completed [facility] Hep B, Adol or Pedi Dosage 2002 00:00:00 Completed [facility] Hep B, Adol or Pedi Dosage 2002 00:00:00 Completed [facility] Hep B, Adol or Pedi Dosage 2002 00:00:00 Completed [facility] Hep B, Adol or Pedi Dosage 2002 00:00:00 Completed [facility] Hep B, Adol or Pedi Dosage 2002 00:00:00 Completed [facility] Hep B, Adol or Pedi Dosage 2002 00:00:00 Completed [facility] Hep B, Adol or Pedi Dosage 2002 00:00:00 Completed Vital Signs Vital Name Observation Time Observation Value Comments S ource Systolic blood pressure 2025-05-15 15:43:00 111 mm[Hg] [place] [facility] Diastolic blood pressure 2025-05-15 15:43:00 77 mm[Hg] [place] [facility] Heart rate 2025-05-15 15:43:00 83 /min [facility] Body temperature 2025-05-15 15:43:00 36.72 Senait [facility] Body weight 2025-05-15 15:43:00 116.257 kg [facility] BMI 2025-05-15 15:43:00 43.99 kg/m2 [facility] Systolic blood pressure 2025-05-14 13:47:00 113 mm[Hg] [facility] Diastolic blood pressure 2025-05-14 13:47:00 74 mm[Hg] [facility] Heart rate 2025-05-14 13:47:00 80 /min [facility] Body temperature 2025-05-14 13:47:00 36.44 Senait [facility] Respiratory rate 2025-05-14 13:47:00 16 /min [facility] Oxygen saturation in Arterial blood by Pulse oximetry 2025-05-14 13:47:00 99 /min [facility] Body height 2025-05-11 23:40:00 162.6 cm [facility] Body weight 2025-05-11 23:40:00 119.296 kg [facility] BMI 2025-05-11 23:40:00 45.14 kg/m2 [facility] Systolic blood pressure 2025-05-05 16:11:00 133 mm[Hg] [facility] Diastolic blood pressure 2025-05-05 16:11:00 83 mm[Hg] [facility] Heart rate 2025-05-05 16:11:00 90 /min [facility] Body temperature 2025-05-05 16:11:00 36.56 Senait [facility] Respiratory rate 2025-05-05 16:11:00 18 /min [facility] Body height 2025-05-05 16:11:00 162.6 cm [facility] Body weight 2025-05-05 16:11:00 118.644 kg [facility] BMI 2025-05-05 16:11:00 44.90 kg/m2 [facility] Systolic blood pressure 2025-04-28 16:11:00 127 mm[Hg] [facility] Diastolic blood pressure 2025-04-28 16:11:00 80 mm[Hg] [facility] Heart rate 2025-04-28 16:11:00 100 [facility] 2025-04-28 16:11:00 36.06 Senait [facility] Respiratory rate 2025-04-28 16:11:00 18 /min [facility] Body height 2025-04-28 16:11:00 162.6 cm [facility] 2025-04-28 16:11:00 117.346 kg [facility] BMI 2025-04-28 16:11:00 44.41 kg/m2 [facility] Systolic blood pressure 2025-04-22 20:23:00 119 mm[Hg] [facility] Diastolic blood pressure 2025-04-22 20:23:00 78 mm[Hg] [facility] Heart rate 2025-04-22 20:23:00 95 /min [facility] Body temperature 2025-04-22 20:23:00 36.61 Senait [facility] Respiratory rate 2025-04-22 20:23:00 18 /min [facility] Body height 2025-04-22 20:23:00 162.6 cm [facility] Body weight 2025-04-22 20:23:00 118.162 kg [facility] BMI 2025-04-22 20:23:00 44.71 kg/m2 [facility] Systolic blood pressure 2025-04-15 16:20:00 115 mm[Hg] [facility] Diastolic blood pressure 2025-04-15 16:20:00 72 mm[Hg] [facility] Heart rate 2025-04-15 16:20:00 87 /min [facility] Body temperature 2025-04-15 16:20:00 36.39 Senait [facility] Respiratory rate 2025-04-15 16:20:00 20 /min [facility] Body height 2025-04-15 16:20:00 162.6 cm [facility] weight 2025-04-15 16:20:00 115.27 kg [facility] BMI 2025-04-15 16:20:00 43.62 kg/m2 [facility] Systolic blood pressure 2025-04-01 20:49:00 128 mm[Hg] [facility] Diastolic blood pressure 2025-04-01 20:49:00 87 mm[Hg] [facility] Heart rate 2025-04-01 20:49:00 116 /min [facility] Body temperature 2025-04-01 20:49:00 36.06 Senait [facility] Respiratory rate 2025-04-01 20:49:00 20 /min [facility] Body height 2025-04-01 20:49:00 162.6 cm [facility] Body weight 2025-04-01 20:49:00 113.172 kg [facility] BMI 2025-04-01 20:49:00 42.83 kg/m2 [facility] Systolic blood pressure 2025-03-17 15:44:00 106 mm[Hg] [facility] Diastolic blood pressure 2025-03-17 15:44:00 67 mm[Hg] [facility] Heart rate 2025-03-17 15:44:00 81 /min [facility] Body temperature 2025-03-17 15:44:00 36.5 Senait [facility] Respiratory rate 2025-03-17 15:44:00 18 /min [facility] Body height 2025-03-17 15:44:00 162.6 cm [facility] Body weight 2025-03-17 15:44:00 110.768 kg [facility] BMI 2025-03-17 15:44:00 41.92 kg/m2 [facility] Systolic blood pressure 2025-02-27 14:58:00 111 mm[Hg] [facility] Diastolic blood pressure 2025-02-27 14:58:00 73 mm[Hg] [facility] Heart rate 2025-02-27 14:58:00 90 /min [facility] Body temperature 2025-02-27 14:58:00 35.94 Senait [facility] Respiratory rate 2025-02-27 14:58:00 18 /min [facility] Body height 2025-02-27 14:58:00 167.6 cm [facility] Body weight 2025-02-27 14:58:00 110.315 kg [facility] BMI 2025-02-27 14:58:00 39.25 kg/m2 [facility] Systolic blood pressure 2025-02-04 14:48:00 102 mm[Hg] [facility] Diastolic blood pressure 2025-02-04 14:48:00 70 mm[Hg] [facility] Heart rate 2025-02-04 14:48:00 78 /min [facility] Body temperature 2025-02-04 14:48:00 36.83 Senait [facility] Respiratory rate 2025-02-04 14:48:00 16 /min [facility] Body height 2025-02-04 14:48:00 167.6 cm [facility] Body weight 2025-02-04 14:48:00 107.502 kg [facility] BMI 2025-02-04 14:48:00 38.25 kg/m2 [facility] Systolic blood pressure 2025-01-08 16:14:00 111 mm[Hg] [facility] Diastolic blood pressure 2025-01-08 16:14:00 70 mm[Hg] [facility] Heart rate 2025-01-08 16:14:00 80 /min [facility] Body temperature 2025-01-08 16:14:00 37.06 Senait [facility] Respiratory rate 2025-01-08 16:14:00 18 /min [facility] Body height 2025-01-08 16:14:00 162.6 cm [facility] Body weight 2025-01-08 16:14:00 106.187 kg [facility] BMI 2025-01-08 16:14:00 40.18 kg/m2 [facility] Systolic blood pressure 2024-12-11 16:33:00 95 mm[Hg] [facility] Diastolic blood pressure 2024-12-11 16:33:00 66 mm[Hg] [facility] Heart rate 2024-12-11 16:33:00 81 /min [facility] Body temperature 2024-12-11 16:33:00 36.5 Senait [facility] Respiratory rate 2024-12-11 16:33:00 17 /min [facility] Body height 2024-12-11 16:33:00 162.6 cm [facility] weight 2024-12-11 16:33:00 104.917 kg [facility] BMI 2024-12-11 16:33:00 39.70 kg/m2 [facility] Systolic blood pressure 2024-11-13 17:00:00 137 mm[Hg] [place] [facility] Diastolic blood pressure 2024-11-13 17:00:00 76 mm[Hg] [facility] Heart rate 2024-11-13 17:00:00 86 /min [facility] Body temperature 2024-11-13 17:00:00 36 Senait [facility] Respiratory rate 2024-11-13 17:00:00 18 /min [facility] Body height 2024-11-13 17:00:00 162.6 cm [facility] Body weight 2024-11-13 17:00:00 104.554 kg [facility] BMI 2024-11-13 17:00:00 39.57 kg/m2 [facility] Systolic blood pressure 2024-10-26 15:43:00 114 mm[Hg] [facility] Diastolic blood pressure 2024-10-26 15:43:00 82 mm[Hg] [facility] Heart rate 2024-10-26 15:43:00 87 /min [facility] Body temperature 2024-10-26 15:43:00 36.72 Senait [facility] Respiratory rate 2024-10-26 15:43:00 21 /min [facility] Body height 2024-10-26 15:43:00 162.6 cm [facility] Body weight 2024-10-26 15:43:00 104.781 kg [facility] BMI 2024-10-26 15:43:00 39.65 kg/m2 [facility] Oxygen saturation in Arterial blood by Pulse oximetry 2024-10-26 15:43:00 99 /min [facility] Systolic blood pressure 2024-10-24 21:19:00 127 mm[Hg] [facility] Diastolic blood pressure 2024-10-24 21:19:00 70 mm[Hg] [facility] Heart rate 2024-10-24 21:19:00 86 /min [facility] Body temperature 2024-10-24 21:19:00 36.17 Senait [facility] Respiratory rate 2024-10-24 21:19:00 16 /min [facility] Body height 2024-10-24 21:19:00 165.1 cm [facility] Body weight 2024-10-24 21:19:00 105.235 kg [facility] BMI 2024-10-24 21:19:00 38.61 kg/m2 [facility] Systolic blood pressure 2024-10-16 22:01:00 119 mm[Hg] [facility] Diastolic blood pressure 2024-10-16 22:01:00 70 mm[Hg] [facility] Heart rate 2024-10-16 22:01:00 83 /min [facility] Body temperature 2024-10-16 22:01:00 36.5 Senait [facility] Respiratory rate 2024-10-16 22:01:00 17 /min [facility] Body height 2024-10-16 22:01:00 165.1 cm [facility] Body weight 2024-10-16 22:01:00 107.548 kg [facility] BMI 2024-10-16 22:01:00 39.46 kg/m2 [facility] Systolic blood pressure 2024-10-14 21:00:00 114 mm[Hg] [facility] Diastolic blood pressure 2024-10-14 21:00:00 87 mm[Hg] [facility] Heart rate 2024-10-14 21:00:00 76 /min [facility] Body temperature 2024-10-14 21:00:00 37.22 Senait [facility] Respiratory rate 2024-10-14 21:00:00 18 /min [facility] Oxygen saturation in Arterial blood by Pulse oximetry 2024-10-14 21:00:00 97 /min [facility] Body height 2024-10-14 17:36:00 165.1 cm [facility] Body weight 2024-10-14 17:36:00 108.863 kg [facility] BMI 2024-10-14 17:36:00 39.94 kg/m2 [facility] Systolic blood pressure 2024-09-18 20:46:00 120 mm[Hg] [facility] Diastolic blood pressure 2024-09-18 20:46:00 71 mm[Hg] [facility] Heart rate 2024-09-18 20:46:00 86 /min [facility] Body temperature 2024-09-18 20:46:00 37.33 Senait [facility] Respiratory rate 2024-09-18 20:46:00 18 /min [facility] Body height 2024-09-18 20:46:00 162.6 cm [facility] Body weight 2024-09-18 20:46:00 108.636 kg [facility] BMI 2024-09-18 20:46:00 41.11 kg/m2 [facility] Systolic blood pressure 2023-05-23 19:12:00 122 mm[Hg] [facility] Diastolic blood pressure 2023-05-23 19:12:00 98 mm[Hg] [facility] Heart rate 2023-05-23 19:12:00 68 /min [facility] Body temperature 2023-05-23 19:12:00 36.61 Senait [facility] Respiratory rate 2023-05-23 19:12:00 18 /min [facility] Body height 2023-05-23 19:12:00 162.6 cm [facility] Body weight 2023-05-23 19:12:00 95.255 kg [facility] BMI 2023-05-23 19:12:00 36.05 kg/m2 [facility] Oxygen saturation in Arterial blood by Pulse oximetry 2023-05-23 19:12:00 99 /min [facility] Systolic blood pressure 2023-02-24 00:41:00 112 mm[Hg] [facility] Diastolic blood pressure 2023-02-24 00:41:00 74 mm[Hg] [facility] Heart rate 2023-02-24 00:41:00 84 /min [facility] Body temperature 2023-02-24 00:41:00 36.94 Senait [facility] Respiratory rate 2023-02-24 00:41:00 20 /min [facility] Oxygen saturation in Arterial blood by Pulse oximetry 2023-02-24 00:41:00 98 /min [facility] Body height 2023-02-23 22:43:00 162.6 cm [facility] Body weight 2023-02-23 22:43:00 95.255 kg [facility] BMI 2023-02-23 22:43:00 36.05 kg/m2 [facility] Systolic blood pressure 2021-10-19 04:27:00 121 mm[Hg] [facility] Diastolic blood pressure 2021-10-19 04:27:00 79 mm[Hg] [facility] Heart rate 2021-10-19 04:27:00 107 [facility] Body temperature 2021-10-19 04:27:00 38.72 Senait [facility] Respiratory rate 2021-10-19 04:27:00 18 /min [facility] Body height 2021-10-19 04:27:00 160 cm [facility] Body weight 2021-10-19 04:27:00 90.719 kg [facility] BMI 2021-10-19 04:27:00 35.43 kg/m2 [facility] Body mass index (BMI) [Percentile] Per age and sex 2021-10-19 04:27:00 97.54 % [facility] Oxygen saturation in Arterial blood by Pulse oximetry 2021-10-19 04:27:00 99 /min [facility] Systolic blood pressure 2021-05-22 10:55:00 118 mm[Hg] [facility] Diastolic blood pressure 2021-05-22 10:55:00 70 mm[Hg] [facility] Heart rate 2021-05-22 10:55:00 105 /min [facility] Body temperature 2021-05-22 10:55:00 38.17 Senait [facility] Respiratory rate 2021-05-22 10:55:00 18 /min [facility] Body height 2021-05-22 10:55:00 162.6 cm [facility] Body weight 2021-05-22 10:55:00 97.523 kg [facility] BMI 2021-05-22 10:55:00 36.90 kg/m2 [facility] Oxygen saturation in Arterial blood by Pulse oximetry 2021-05-22 10:55:00 97 /min [facility] Systolic blood pressure 2021-03-12 12:22:00 102 mm[Hg] [facility] Diastolic blood pressure 2021-03-12 12:22:00 57 mm[Hg] [facility] Heart rate 2021-03-12 12:22:00 69 /min [facility] Body temperature 2021-03-12 12:22:00 37.06 Senait [facility] Respiratory rate 2021-03-12 12:22:00 18 /min [facility] Oxygen saturation in Arterial blood by Pulse oximetry 2021-03-12 12:22:00 97 /min [facility] Body height 2021-03-11 20:55:00 165.1 cm [facility] Body weight 2021-03-11 20:55:00 105.461 kg [facility] BMI 2021-03-11 20:55:00 38.69 kg/m2 [facility] Systolic blood pressure 2021-03-06 05:21:03 135 mm[Hg] [facility] Diastolic blood pressure 2021-03-06 05:21:03 82 mm[Hg] [facility] Heart rate 2021-03-06 05:21:03 96 /min [facility] Body temperature 2021-03-06 05:21:03 37.22 Senait [facility] Respiratory rate 2021-03-06 05:21:03 20 /min [facility] Oxygen saturation in Arterial blood by Pulse oximetry 2021-03-06 05:21:03 98 /min [facility] Body height 2021-03-06 03:22:00 165.1 cm [facility] Body weight 2021-03-06 03:22:00 90.719 kg [facility] BMI 2021-03-06 03:22:00 33.28 kg/m2 [facility] Heart rate 2021-02-25 02:31:00 108 /min [facility] Systolic blood pressure 2021-02-25 01:21:00 123 mm[Hg] [facility] Diastolic blood pressure 2021-02-25 01:21:00 82 mm[Hg] [facility] Body temperature 2021-02-25 01:21:00 37.61 Senait [facility] Respiratory rate 2021-02-25 01:21:00 22 /min [facility] Body weight 2021-02-25 01:21:00 90.719 kg [facility] Oxygen saturation in Arterial blood by Pulse oximetry 2021-02-25 01:21:00 99 /min [facility] Systolic blood pressure 2019-10-22 15:39:00 113 mm[Hg] [facility] Diastolic blood pressure 2019-10-22 15:39:00 74 mm[Hg] [facility] Heart rate 2019-10-22 15:39:00 82 /min [facility] Body temperature 2019-10-22 15:39:00 36.83 Senait [facility] Respiratory rate 2019-10-22 15:39:00 16 /min [facility] Body height 2019-10-22 15:39:00 160 cm [facility] Body weight 2019-10-22 15:39:00 103.023 kg [facility] BMI 2019-10-22 15:39:00 40.23 kg/m2 [facility] Height Measured 2024-10-28 09:53:00 63.00 inches Marco Antonio Goins Body Temperature 2024-10-28 09:53:00 97.50 degrees Marco Antonio Stacie Goins Heart Rate 2024-10-28 09:53:00 106.00 /min Step [...] Date / Time Performed Performing Clinician Source CBC WITH DIFF 2025-05-14 10:03:00 Vita Funez [facility] VENOUS CORD GAS 2025-05-13 13:14:00 Colton Colbert [facility] CENTRAL NEURAXIAL BLOCK 2025-05-12 23:55:00 Joyce Siddiqui [facility] CBC WITH DIFF 2025-05-12 01:22:00 Colton Colbert [facility] HEPATITIS B SURFACE ANTIGEN 2025-05-12 01:22:00 Colton Colbert [facility] HB ABO GROUPING 2025-05-12 01:22:00 Colton Colbert [facility] RHO (D) IMMUNE GLOBULIN 2025-05-12 01:22:00 Fadi Funez [facility] HIV 1/2 AG-AB WITH REFLEX 2025-05-12 01:22:00 Colton Colbert [facility] SYPHILIS IGG/IGM 2025-05-12 01:22:00 Colton Colbert [facility] POCT URINALYSIS GLUCOSE & PROTEIN 2025-03-17 15:46:00 Nubia Hanley [facility] TDAP VACCINE, >11 YRS, IM 2025-02-27 15:14:24 Nubia Hanley [facility] POCT URINALYSIS 2025-02-04 00:00:00 Nubia Hanley [facility] POCT URINALYSIS 2025-01-08 16:16:00 Nubia Hanley [facility] POCT URINALYSIS 2024-12-11 00:00:00 Nubia Hanley [facility] POCT URINALYSIS 2024-11-13 17:03:00 Nubia Hanley [facility] NIPT - NON-INVASIVE TEST RESULTS 2024-11-04 12:56:07 Doctor Unassigned, [place] [facility] NIPT - NON-INVASIVE TEST RESULTS 2024-10-31 22:45:35 Doctor Unassigned, [place] [facility] POCT URINALYSIS 2024-10-26 16:04:00 Faiza Reyes Un [facility] FIRST TRIMESTER ULTRASOUND 2024-10-25 20:54:00 Nubia Hanley [facility] POCT URINALYSIS 2024-10-24 21:27:00 Nubia Hanley [facility] POCT URINALYSIS 2024-10-16 00:00:00 Nubia Hanley [facility] US FIRST TRIMESTER LESS THAN 14 WEEKS WITH TRANSVAGINAL 2024-10-14 19:24:18 Fabrizio Tinsley [facility] COMP. METABOLIC PANEL (27232) 2024-10-14 18:34:00 Fabrizio Tinsley [facility] TOTAL BETA HCG ASSAY 2024-10-14 18:34:00 Rehan Tinsley [facility] CBC WITH DIFF 2024-10-14 18:34:00 Fabrizio Tinsley [facility] URINALYSIS 2024-10-14 18:31:00 Fabrizio Tinsley [facility] POCT TEST 2024-10-14 18:31:00 Maxwell Tinsley [facility] CBC WITH DIFF 2024-09-18 22:18:00 Nubia Hanley [facility] GLYCOSYLATED HEMOGLOBIN (A1C) 2024-09-18 22:18:00 Nubia Hanley [facility] RUBELLA SCREEN IGG 2024-09-18 22:18:00 Lele Hanley [facility] VZV ANTIBODY SCREEN 2024-09-18 22:18:00 Ilya Hanley [facility] HEPATITIS B SURFACE ANTIGEN 2024-09-18 22:18:00 Nubia Hanley [facility] HCV ANTIBODY 2024-09-18 22:18:00 Nubia Hanley [facility] HB ABO GROUPING 2024-09-18 22:18:00 Nubia Hanley [facility] HIV 1/2 AG-AB WITH REFLEX 2024-09-18 22:18:00 Nubia Hanley [facility] PAP SMEAR-LIQUID BASED-CP 2024-09-18 22:18:00 Nubia Hanley [facility] SYPHILIS IGG/IGM 2024-09-18 22:18:00 Amos Hanley [facility] FLU VACC (), 6 MO-64 YRS, .5ML, IM, TIV (FLUCELVAX) 2024-09-18 20:54:43 Nubia Hanley [facility] POCT URINALYSIS W/O SPECIFIC GRAVITY 2024-09-18 20:38:00 Nubia Hanley [facility] POCT TEST 2024-09-18 20:37:00 Ilya Hanley [facility] POCT TEST 2023-05-23 22:15:00 Tamiko Ayoub [facility] LIPASE 2023-05-23 20:07:00 [facility] COMP. METABOLIC PANEL ([id number]) 2023-05-23 20:07:00 Jennifer Ayoub [facility] CBC WITH DIFF 2023-05-23 20:07:00 Jennifer Ayoub [facility] URINALYSIS 2023-05-23 20:07:00 Mega [facility] ASSIGNMENT OF BENEFITS 2023-05-23 19:45:58 Docto r Unassigned, [place] [facility] ASSIGNMENT OF BENEFITS 2023-02-23 23:29:30 Docto r Unassigned, [place] [facility] RAPID STREP SCREEN FOR GROUP A 2023-02-23 23:18:00 Thelma Garcia [facility] RAPID INFLUENZA A/B 2023-02-23 23:18:00 Jatinder Garcia [facility] COVID-19 (ID NOW RAPID TESTING) 2023-02-23 23:18:00 Thelma Garcia [facility] CONSENT/REFUSAL FOR DIAGNOSIS AND TREATMENT 2023-02-23 22:27:31 Doctor Unassigned, [place] [facility] RAPID INFLUENZA A/B 2021-10-19 04:38:00 Micha Vanessa [facility] NOTICE OF PRIVACY PRACTICES 2021-10-19 04:25:24 Doctor Unassigned, [place] [facility] CONSENT/REFUSAL FOR DIAGNOSIS AND TREATMENT 2021-10-19 04:25:07 Doctor Unassigned, [place] [facility] URINALYSIS 2021-05-22 11:31:00 Suzette Michele [facility] POCT TEST 2021-05-22 11:31:00 Suzette Michele [facility] COVID-19 (ID NOW RAPID TESTING) 2021-05-22 11:17:00 Suzette Michele [facility] CONSENT/REFUSAL FOR DIAGNOSIS AND TREATMENT 2021-05-22 10:19:37 Doctor Unassigned, [place] [facility] MAGNESIUM 2021-03-12 09:44:00 Anatoly Valdovinos [facility] BASIC METABOLIC PANEL (NA, K, CL, CO2, GLUCOSE, BUN, CREATININE, CA) 2021-03-12 09:44:00 Anatoly Valdovinos [facility] CBC WITH DIFF 2021-03-12 09:44:00 Anatoly Valdovinos [facility] COVID-19 (ID NOW RAPID TESTING) 2021-03-11 17:06:00 Solange Ford [facility] BLOOD CULTURE SCREEN 2021-03-11 17:05:00 Ashok Ford [facility] URINE CULTURE 2021-03-11 17:05:00 Solange Ford [facility] LACTIC ACID WHOLE BLOOD 2021-03-11 17:04:00 Do adriane Ford [facility] BLOOD CULTURE SCREEN 2021-03-11 16:35:00 Ashok Ford [facility] CT ABDOMEN PELVIS W CONTRAST 2021-03-11 15:56:47 Solange Ford [facility] LIPASE 2021-03-11 15:07:00 Solange Ford [facility] COMP. METABOLIC PANEL ([id number]) 2021-03-11 15:07:00 Solange Ford [facility] CBC WITH DIFF 2021-03-11 15:07:00 Solange Ford [facility] URINALYSIS 2021-03-11 15:07:00 Solange Ford [facility] POCT TEST 2021-03-11 15:06:00 Tatiana Ford [facility] NOTICE OF PRIVACY PRACTICES 2021-03-11 14:51:22 Doctor Unassigned, [place] [facility] CONSENT/REFUSAL FOR DIAGNOSIS AND TREATMENT 2021-03-11 14:50:52 Doctor Unassigned, [place] [facility] XR CHEST 2 VW 2021-03-06 04:04:44 Jennifer Ayoub [facility] NOTICE OF PRIVACY PRACTICES 2021-03-06 03:15:08 Doctor Unassigned, [place] [facility] CONSENT/REFUSAL FOR DIAGNOSIS AND TREATMENT 2021-03-06 03:14:52 Doctor Unassigned, [place] [facility] COVID-19 (ID NOW RAPID TESTING) 2021-02-25 01:56:00 Micha Vanessa [facility] NOTICE OF PRIVACY PRACTICES 2021-02-25 01:15:24 Doctor Unassigned, [place] [facility] CONSENT/REFUSAL FOR DIAGNOSIS AND TREATMENT 2021-02-25 01:10:32 Doctor Unassigned, [place] [facility] Encounters Start Date/Time End Date/Time Encounter Type Admission Type Attending [facility] Care Department Encounter ID Source 2021-08-08 22:53:54 Emergency [facility] [id number] [facility] 2021-08-08 22:05:35 Emergency [facility] [id number] [facility] 2021-08-08 20:09:33 Emergency [facility] [id number] [facility] 2025-05-15 09:00:00 2025-05-15 10:26:04 Nurse Visit R [facility], [facility] Nubia Hanley C Visit, [facility] Nurse [facility] CHIEF RADIATION THERAPIST [facility] MATERNAL & CHILD HEALTH [facility] 1..840.114 350.1.13.10 4.2.7.2.686 [id number] 107 [id number] [facility] 2025-05-11 18:13:00 2025-05-14 15:31:00 Hospital Encounter P ERIKA CHAVARRIA FARANAK [facility] SH[place] [id number] [facility] 2025-05-12 18:55:00 2025-05-13 12:15:00 Anesthesia Event Tamiko iPerre Sophia [facility] [place] ([facility] 1..840.114 350.1.13.10 4.2.7.2.686 [id number] [facility] 2025-05-11 18:00:00 2025-05-11 18:00:00 Outpatient INDUCTION, [facility] [id number] [facility] 2025-05-08 00:00:00 2025-05-08 17:05:00 Patient Secure Msg Nubia Hanley [facility] CHIEF RADIATION THERAPIST [facility] 1.0.114 350.1.13.10 4.2.7.2.686 [id number] 107 [id number] [facility] 2025-05-06 14:00:00 2025-05-06 14:00:00 Outpatient INDUCTION, [facility] [id number] [facility] 2025-05-05 11:00:00 2025-05-05 12:09:20 Routine Visit R Nubia Hanley [facility] CHIEF RADIATION THERAPIST [facility] 1..114 350.1.13.10 4.2.7.2.686 [id number] 107 [id number] [facility] 2025-05-03 00:00:00 2025-05-05 08:58:31 Patient Secure Msg Doctor Unassigned, [place] Doctor Unassigned, [place] [facility] [place] ([facility] 1..114 350.1.13.10 4.2.7.2.686 [id number] [facility] 2025-04-28 00:00:00 2025-04-29 16:11:07 Patient Secure Msg Nubia Hanley [facility] CHIEF RADIATION THERAPIST [facility] CHILD [facility] 1.20.114 350.1.13.10 4.2.7.2.686 [id number] 107 [id number] [facility] 2025-04-28 11:15:00 2025-04-28 11:36:36 Routine Visit R Nubia Hanley [facility] CHIEF RADIATION THERAPIST [facility] 1.840.114 350.1.13.10 4.2.7.2.686 [id number] 107 [id number] [facility] 2025-04-22 15:15:00 2025-04-22 15:46:42 Routine Visit R Nubia Hanley [facility] CHIEF RADIATION THERAPIST [facility] 1.2.840.114 350.1.13.10 4.2.7.2.686 [id number] 107 [id number] [facility] 2025-04-16 12:30:00 2025-04-16 12:30:00 Outpatient R NUBIA HANLEY [facility] [id number] [facility] 2025-04-15 11:15:00 2025-04-15 11:44:05 Routine Visit R Nubia Hanley [facility] CHIEF RADIATION THERAPIST [facility] 1..840.114 350.1.13.10 4.2.7.2.686 [id number] 107 [id number] [facility] 2025-04-15 11:00:00 2025-04-15 11:00:00 Outpatient R NUBIA HANLEY [facility] [id number] [facility] 2025-02-27 00:00:00 2025-04-05 18:31:40 Patient Secure Msg Nubia Hanley [facility] CHIEF RADIATION THERAPIST [facility] 1.2.840.114 350.1.13.10 4.2.7.2.686 [id number] 107 [id number] [facility] 2025-04-01 15:30:00 2025-04-01 16:25:07 Routine Visit R Nubia Hanley [facility] CHIEF RADIATION THERAPIST [facility] 1.2.840.114 350.1.13.10 4.2.7.2.686 [id number] 107 [id number] [facility] 2025-03-31 15:45:00 2025-03-31 15:45:00 Outpatient R NUBIA HANLEY [facility] [id number] [facility] 2025-03-31 10:30:00 2025-03-31 10:30:00 [facility] [id number] [facility] 2025-03-17 10:30:00 2025-03-17 11:18:06 Routine Visit R NUBIA HANLEY [facility] CHIEF RADIATION THERAPIST [facility] 1.2.840.114 350.1.13.10 4.2.7.2.686 [id number] 107 [id number] [facility] 2025-02-27 09:45:00 2025-02-27 10:21:23 Routine Visit R Nubia Hanley Reyna [facility] CHIEF RADIATION THERAPIST [facility] 1.2840.114 350.1.13.10 4.2.7.2.686 [id number] 107 [id number] [facility] 2025-02-18 10:15:00 2025-02-18 10:15:00 Outpatient R NUBIA HANLEY [facility] [id number] [facility] 2025-02-04 00:00:00 2025-02-12 07:14:09 Patient Secure Msg Dayan Nubia Reyna [facility] CHIEF RADIATION THERAPIST [facility] 1.2.840.114 350.1.13.10 4.2.7.2.686 [id number] 107 [id number] [facility] 2025-02-11 00:00:00 2025-02-11 15:18:45 Telephone KenNubia goodwin Reyna [facility] CHIEF RADIATION THERAPIST [facility] 1.2840.114 350.1.13.10 4.2.7.2.686 [id number] 107 [id number] [facility] 2025-02-05 00:00:00 2025-02-05 11:19:20 Patient Secure Msg Nubia Hanley [facility] CHIEF RADIATION THERAPIST [facility] 1.2.840.114 350.1.13.10 4.2.7.2.686 [id number] 107 [id number] [facility] 2025-02-05 10:30:00 2025-02-05 10:30:00 Outpatient R NUBIA HANLEY [facility] [id number] [facility] 2025-02-04 09:30:00 2025-02-04 11:01:13 Outpatient R NUBIA HANLEY [facility] [id number] [facility] 2025-02-04 09:30:00 2025-02-04 11:01:13 Routine Visit Nubia Hanley [facility] CHIEF RADIATION THERAPIST [facility] 1.2.840.114 350.1.13.10 4.2.7.2.686 [id number] 107 [id number] [facility] 2024-12-31 00:00:00 2025-02-01 18:16:14 Patient Secure Msg Nubia Hanley [facility] CHIEF RADIATION THERAPIST [facility] CHILD [facility] 1.2.840.114 350.1.13.10 4.2.7.2.686 [id number] 107 [id number] [facility] 2025-01-28 00:00:00 2025-01-28 14:40:42 Patient Secure Msg Nubia Hanley [facility] CHIEF RADIATION THERAPIST [facility] 1.2.840.114 350.1.13.10 4.2.7.2.686 [id number] 107 [id number] [facility] 2025-01-22 00:00:00 2025-01-23 13:29:35 Telephone Nubia Hanley [facility] CHIEF RADIATION THERAPIST [facility] 1.2.840.114 350.1.13.10 4.2.7.2.686 [id number] 107 [id number] [facility] 2024-12-18 00:00:00 2025-01-18 18:14:53 Patient Secure Msg Nubia Hanley [facility] CHIEF RADIATION THERAPIST [facility] CHILD [facility] 1.2.840.114 350.1.13.10 4.2.7.2.686 [id number] 107 [id number] [facility] 2025-01-08 11:00:00 2025-01-08 11:39:36 Outpatient R NUBIA HANLEY [facility] [id number] [facility] 2025-01-08 11:00:00 2025-01-08 11:39:36 Routine Visit Nubia Hanley [facility] 1..840.114 350.1.13.10 4.2.7.2.686 [id number] 107 [id number] [facility] 2024-12-31 00:00:00 2024-12-31 15:50:08 Patient Secure Msg Nubia Hanley [facility] 1..840.114 350.1.13.10 4.2.7.2.686 [id number] 107 [id number] [facility] 2024-12-24 13:00:00 2024-12-24 14:21:53 Outpatient P JONO [facility] [id number] [facility] 2024-12-11 10:30:00 2024-12-11 11:01:16 Outpatient R NUBIA HANLEY [facility] [id number] [facility] 2024-12-11 10:30:00 2024-12-11 11:01:16 Routine Visit Nubia Hanley [facility] CHIEF RADIATION THERAPIST [facility] 1..840.114 350.1.13.10 4.2.7.2.686 [id number] 107 [id number] [facility] 2024-10-25 00:00:00 2024-11-30 18:20:39 Patient Secure Msg Nubia Hanley [facility] CHIEF RADIATION THERAPIST [facility] 1.2.840.114 350.1.13.10 4.2.7.2.686 [id number] 107 [id number] [facility] 2024-10-28 00:00:00 2024-11-30 18:18:55 Patient Secure Msg Doctor Unassigned, [place] Doctor Unassigned, [place] [facility] ([facility] 1.2.840.114 350.1.13.10 4.2.7.2.686 [id number] [id number] [facility] 2024-10-29 00:00:00 2024-11-30 18:18:27 Patient Secure Msg Doctor Unassigned, [place] Doctor Unassigned, [place] [facility] ([facility]) 1.2.840.114 350.1.13.10 4.2.7.2.686 [id number] [facility] 2024-10-21 00:00:00 2024-11-23 18:20:21 Patient Secure Msg Nubia Hanley [facility] CHIEF RADIATION THERAPIST [facility] 1.2.840.114 350.1.13.10 4.2.7.2.686 [id number] 107 [id number] [facility] 2024-10-21 00:00:00 2024-11-23 18:19:50 Patient Secure Msg Doctor Unassigned, [place] Doctor Unassigned, [place] [facility] ([facility]) 1.2.840.114 350.1.13.10 4.2.7.2.686 [id number] [facility] 2024-10-31 00:00:00 2024-11-23 06:15:59 Orders Only Doctor Unassigned, [place] Doctor Unassigned, [place] [facility] ([facility]) 1.2.840.114 350.1.13.10 4.2.7.2.686 [id number] [facility] 2024-11-04 00:00:00 2024-11-23 06:14:51 Orders Only Doctor Unassigned, [place] Doctor Unassigned, [place] [facility] [place] ([facility] 1.2.840.114 350.1.13.10 4.2.7.2.686 [id number] [facility] 2024-10-14 00:00:00 2024-11-16 18:20:21 Patient Secure Msg Nubia Hanley [facility] CHIEF RADIATION THERAPIST [facility] 1.2.840.114 350.1.13.10 4.2.7.2.686 [id number] 107 [id number] [facility] 2024-11-13 11:00:00 2024-11-13 11:37:25 Outpatient R NUBIA HANLEY [facility] [id number] [facility] 2024-11-13 11:00:00 2024-11-13 11:37:25 Routine Visit Nubia Hanley [facility] CHIEF RADIATION THERAPIST [facility] CHILD [facility] 1.2840.114 350.1.13.10 4.2.7.2.686 [id number] 107 [id number] [facility] 2024-10-30 00:00:00 2024-10-30 09:02:00 Case Management Ayala Heck [facility] CHIEF RADIATION THERAPIST [facility] CHILD [facility] 1.2.840.114 350.1.13.10 4.2.7.2.686 [id number] 107 [id number] [facility] 2024-10-29 00:00:00 2024-10-29 18:02:50 Abstract Nubia Hanley [facility] CHIEF RADIATION THERAPIST [facility] 1.2.840.114 350.1.13.10 4.2.7.2.686 [id number] 107 [id number] [facility] 2024-10-29 00:00:00 2024-10-29 14:31:22 Nurse Triage Vicki Light Stacy [facility] ([place] 1.20.114 350.1.13.10 4.2.7.2.686 [id number] [facility] 2024-10-28 00:00:00 2024-10-28 16:57:38 Telephone Faiza Reyes [facility] 1.114 350.1.13.10 4.2.7.2.686 [id number] [facility] 2024-10-28 09:39:29 2024-10-28 09:39:29 Outpatient SFA [facility] [id number] Marco Antonio Goins 2024-10-28 00:00:00 2024-10-28 00:00:00 Outpatient Visit [facility] [id number] Marco Antonio Goins 2024-09-19 00:00:00 2024-10-26 18:21:55 Patient Secure Msg Nubia Hanley [facility] CHIEF RADIATION THERAPIST [facility] MATERNAL & CHILD HEALTH [facility] 1.114 350.1.13.10 4.2.7.2.686 [id number] 107 [id number] [facility] 2024-09-19 00:00:00 2024-10-26 18:21:49 Patient Secure Msg Doctor Unassigned, [place] Doctor Unassigned, [place] [facility] 1.20.114 350.1.13.10 4.2.7.2.686 [id number] [facility] 2024-10-26 09:20:00 2024-10-26 10:44:58 Outpatient R FAIZA REYES [facility] [id number] [facility] 2024-10-26 09:20:00 2024-10-26 10:44:58 Urgent Care Faiza Reyes Unknown, Attending [facility] 1..840.114 350.1.13.10 4.2.7.2.686 [id number] [facility] 2024-10-25 14:30:00 2024-10-25 15:09:11 Outpatient R ABI LÓPEZ KARIN FOX, KARIN [facility] [id number] [facility] 2024-10-25 14:30:00 2024-10-25 15:09:11 Community Recreation Programmer Visit Ultrasound, Shawna López Abi [facility] CHIEF RADIATION THERAPIST [facility] .840.114 350.1.13.10 4.2.7.2.686 [id number] [facility] 2024-10-24 15:30:00 2024-10-24 16:16:26 Outpatient R AYALA HECK [facility] [id number] [facility] 2024-10-24 15:30:00 2024-10-24 16:16:26 Routine Visit Nubia Hanley Brenda A [facility] CHIEF RADIATION THERAPIST [facility] 1.840.114 350.1.13.10 4.2.7.2.686 [id number] 107 [id number] [facility] 2024-10-24 00:00:00 2024-10-24 11:56:32 Telephone Nubia Hanley [facility] CHIEF RADIATION THERAPIST [facility] 1..840.114 350.1.13.10 4.2.7.2.686 [id number] 107 [id number] [facility] 2024-10-16 16:00:00 2024-10-16 16:21:07 [facility] [id number] [facility] 2024-10-16 16:00:00 2024-10-16 16:21:07 Routine Visit Nubia Hanley COLETITIA CHIEF RADIATION THERAPIST [facility] 1.2.840.114 350.1.13.10 4.2.7.2.686 [id number] 107 [id number] [facility] 2024-10-14 11:37:00 2024-10-14 15:05:00 Emergency X FABRIZIO TINSLEY PHILLIP COLETITIA ERT [id number] [facility] 2024-10-14 11:37:00 2024-10-14 15:05:00 Emergency Fabrizio Tinsley AT [facility] 1.2.840.114 350.1.13.10 4.2.7.2.686 [id number] [facility] 2024-09-19 00:00:00 2024-09-20 07:43:51 Telephone Nubia Hanley [facility] CHIEF RADIATION THERAPIST [facility] CHILD [facility] 1.2.840.114 350.1.13.10 4.2.7.2.686 [id number] [facility] 2024-09-19 00:00:00 2024-09-20 07:36:32 Telephone Nubia Hanley [facility] CHIEF RADIATION THERAPIST [facility] 1.2.840.114 350.1.13.10 4.2.7.2.686 [id number] 107 [id number] [facility] 2024-09-18 00:00:00 2024-09-19 06:55:10 Patient Secure Msg Nubia Hanley [facility] CHIEF RADIATION THERAPIST [facility] 1.2.840.114 350.1.13.10 4.2.7.2.686 [id number] [facility] 2024-09-18 14:30:00 2024-09-18 16:16:56 Initial Visit Nubia Hanley [facility] [facility] CHIEF RADIATION THERAPIST [facility] MATERNAL & CHILD HEALTH [facility] 1.2840.114 350.1.13.10 4.2.7.2.686 [id number] [facility] 2024-09-18 14:00:00 2024-09-18 14:31:28 Outpatient R NUBIA [facility] [id number] [facility] 2023-05-23 14:13:00 2023-05-23 18:16:00 Emergency X MEGA JENNIFER [facility] [id number] [facility] 2023-05-23 14:13:00 2023-05-23 18:16:00 Emergency Mega Jennifer [facility] 1.84.114 350.1.13.10 4.2.7.2.686 [id number] [facility] 2023-02-23 17:44:00 2023-02-23 19:46:00 Emergency X THELMA GARCIA [facility] E[facility] [id number] [facility] 2023-02-23 17:44:00 2023-02-23 19:46:00 Emergency Thelma Garcia [facility] 1.84.114 350.1.13.10 4.2.7.2.686 [id number] [facility] 2021-10-20 00:00:00 2021-10-20 00:00:00 Patient Secure Msg Gissell Ornelas [facility] CHIEF RADIATION THERAPIST [facility] MATERNAL & [facility]ILD HEALTH [facility] 1.284.114 350.1.13.10 4.2.7.2.686 [id number] [facility] 2021-10-19 00:00:00 2021-10-19 00:00:00 Patient Secure Msg Doctor Unassigned, [place] [facility] 1.2.840.114 350.1.13.10 4.2.7.2.686 [id number] [facility] 2021-10-19 00:00:00 2021-10-19 00:00:00 Patient Secure Msg Nubia Hanley [facility] CHIEF RADIATION THERAPIST [facility] MATERNAL & [facility]ILD HEALTH [facility] 1.2.840.114 350.1.13.10 4.2.7.2.686 [id number] [facility] 2021-10-18 22:40:00 2021-10-18 23:11:00 Emergency X MICHA VANESSA [facility] [id number] [facility] 2021-10-18 22:40:00 2021-10-18 23:11:00 Emergency Micha Vanessa [facility] 1.2.840.114 350.1.13.10 4.2.7.2.686 [id number] [id number] [facility] 2021-05-22 05:58:00 2021-05-22 07:44:00 Emergency Suzette Michele [facility] 1.2.840.114 350.1.13.10 4.2.7.2.686 [id number] [id number] [facility] 2021-05-22 05:58:00 2021-05-22 07:44:00 Emergency X SUZETTE MICHELE [facility] [id number] [facility] 2021-05-22 00:00:00 2021-05-22 00:00:00 Orders Only Doctor Unassigned, [place] [facility] 1.2.840.114 350.1.13.10 4.2.7.2.686 [id number] [facility] 2021-03-11 09:58:00 2021-03-12 13:25:00 Emergency Solange Ford Yaman [facility] 1.2.840.114 350.1.13.10 4.2.7.2.686 [id number] [id number] [facility] 2021-03-05 22:26:00 2021-03-06 00:33:00 Emergency Jennifer Ayoub [facility] 1.2.840.114 350.1.13.10 4.2.7.2.686 [id number] 084 [id number] [facility] 2021-02-24 20:25:00 2021-02-24 21:57:00 Emergency Micha Vanessa [facility] 1.2.840.114 350.1.13.10 4.2.7.2.686 [id number] [id number] [facility] 2019-10-22 09:07:40 2019-10-22 09:41:44 [facility] CHIEF RADIATION THERAPIST [facility] 1.2.840.114 350.1.13.10 4.2.7.2.686 [id number] [facility] Results Test Description Test Time Test Comments Results Result Co mments Source [facility] Center[facility] Jos6102-03-22 13:23:42* Test Item Value Reference Range Interpretation Comme nts BASE EXCESS, CORD (test code = 6668275558) -6.5 mEq/L AC PH, CORD (test code = 5151093266) 7.17 7.18-7.38 L PC02, CORD (test code = 8833081705) 64 32-66 PO2, CORD (test code = 6165239525) 17 10-30 BICARBONATE, CORD (test code = 2739259476) 23 17-27 Lab Interpretation (test cod e = 56981-8) Abnormal [facility] CenterVenous Cord Ftl7793-82-83 13:23:07* Test Item Value Reference Range Interpretation Comme nts VENOUS BASE EXCESS, CORD (te st code = 3574576153) -3.9 mEq/L VENOUS PH, CORD (test code = 9208081790) 7.36 7.25-7.45 VENOUS PC02, CORD (test code = 6083324999) 38 27-49 VENOUS PO2, CORD (test code = 0611104467) 28 17-41 VENOUS BICARBONATE, CORD (te st code = 4449063273) 21 12- [facility] CenterCentral Neuraxial Mokbb6901-05-99 23:55:00 Joyce Siddiqui DO ? ? 05/13/2025 ?6:22 AM Central Neuraxial Block Date/Time: 05/12/2025 6:55 PM Performed by: Joyce Siddiqui DOAuthorized by: Keely Hobson MD ?Patient Location: OBReason for Block: OB request, Patient request, Labor analgesia, Surgical anesthesia and Post-op pain managementStaff: ?Anesthesiologist: Keely Hobson MD ?Resident/PASSENGER AGENT: Joyce Siddiqui DO ?Performed by: resident/CRNAPreanesthetic Checklist: patient identified, IV checked, risks and benefits explained, monitors and equipment checked, timeout performed, pre-op evaluation, site marked and anesthesia consentProcedure: ?Type of Neuraxial: Epidural ?Epidural Description: 1st attempt ? Sterility Prep cap, drape, gloves, hand hygiene and mask ? ?Sedation Level no sedation ?Patient Position: sitting ?Prep: Betadine and patient draped ? ?Monitoring: heart rate, continuous pulse ox, fetalheart rate / toco and NIBP ?Location: lumbar (1-5) ?Lumbar: L3-L4 ?Approach: midline ? ?Technique: KRIS saline ?Guidance with: landmark technique}Epidural/Spinal [place] and/or Catheter: ?Epidural/Spinal Kit: BBraun ?Needle Type: Tuohy ?Needle Gauge: 17 G ?Needle Length: 3.5 in (8.89 cm) ?Needle Insertion Depth: 9.5 ?Catheter Type: multiport ? ?Catheter Size: 19 G ? ?Catheter at Skin Depth: 15 ?Number of Attempts: 1 ?Test Dose: lidocaine 1.5% with epinephrine 1-to-200,000 and negative ? ?Dose: 3cc ? ?Catheter Securement Method: surgical tape, Tegaderm, clear occlusive dressing and liquid medical adhesiveAssessment: ?Block Outcome: patient tolerated procedure well and a full evaluation is pending ? ?Procedure Assessment: patient tolerated procedure well with no complicationsUnThe Hospitals of Providence East CampusGALV ONLY - SYPHILIS IGG/JTT7441-98-83 14:51:49* Test Item Value Reference Range Interpretation Comme nts Syphilis IgG/IgM (test code = 18067-2) Nonreactive Nonreactive Syphilis Serology Interpretation (test code = 16088-0) No serologic evidence of syphilis. If recent exposure is suspected, retest in 2 to 4 weeks. EVERARDO (test code = EVERARDO) ? [facility] CenterHIV 1/2 AG-AB WITH BGMMGU1650-07-25 02:49:17* Test Item Value Reference Range Interpretation Comme nts HIV Semi-quantitative (test code = 13348-9) 0.1 Negative EVERARDO (test code = EVERARDO) Non-reactive for HIV-1 antigen and HIV-1/HIV-2 antibodies. ?No laboratory evidence of HIV infection. ?Repeat in 2-4 weeks if acute HIV infection is suspected. [facility] CenterHepatitis B Surface Fmfzelf9509-17-30 02:39:55 * Test Item Value Reference Range Interpretation Comme nts HBsAg Semi-Quantitative (yao t code = 5195-3) 0.07 Negative [facility] CenterCBC with Iwnigmrhjzhx4653-05-41 01:41:28* Test Item Value Reference Range Interpretation Comme nts WBC (test code = 6690-2) 8.24 4.30-11.10 RBC (test code = 789-8) 4.23 3.93-5.25 HGB (test code = 718-7) 12.9 g/dL 11.6-15.0 HCT (test code = 4544-3) 37 % 35.7-45.2 MCV (test code = 787-2) 87.5 fL 80.6-95.5 MCH (test code = 785-6) 30.5 pg 25.9-32.8 MCHC (test code = 786-4) 34.9 g/dL 31.6-35.1 RDW-SD (test code = 59223-8) 41.3 fL 39.0-49.9 RDW-CV (test code = 788-0) 13 % 12.0-15.5 PLT (test code = 777-3) 194 166-358 MPV (test code = 85340-1) 10 fL 9.5-12.9 NRBC/100 WBC (test code = 3477632803) 0 0.0-10.0 NRBC x10^3 (test code = 6670617662) See_Comment [Automated messa ge] The system which generated this result transmitted reference range: 10*3/?L. The reference range was not used to interpret this result as normal/abnormal. GRAN MAT (NEUT) % (test code = 770-8) 70.9 % IMM GRAN % (test code = 4015595096) 0.4 % LYMPH % (test code = 736-9) 22.6 % MONO % (test code = 5905-5) 5.8 % EOS % (test code = 713-8) 0.1 % BASO % (test code = 706-2) 0.2 % GRAN MAT x10^3(ANC) (test code = 5682099491) 5.84 10*3/uL 1.88-7.09 IMM GRAN x10^3 (test code = 6636016212) 0.03 10*3/uL 0.00-0.06 LYMPH x10^3 (test code = 731-0) 1.86 10*3/uL 1.32-3.29 MONO x10^3 (test code = 742-7) 0.48 10*3/uL 0.33-0.92 EOS x10^3 (test code = 711-2) 0.03-0.39 L BASO x10^3 (test code = 704-7) 0.01-0.07 Lab Interpretation (test code = 72402-3) Abnormal [facility] CenterType and Screen - ONCE QAVC7321-11-98 01:27:00 * Test Item Value Reference Range Interpretation Comme nts ABO & RH (test code = 20) O NEGATIVE IAT (test code = 1185) Negative [facility] Urinalysis Glucose & Espylif4673-53-92 15:46:00* Test Item Value Reference Range Interpretation Comme nts POCT U PROT (test code = 3259) negative Negative - Negat dash POCT U GLU (test code = 3256) negative Negative - Negati ve [facility] URINALYSIS W SPECIFIC JBBRVRD5552-05-19 17:23:00* Test Item Value Reference Range Interpretation Comme [...] U APPEAR (test code = 3267) . [facility] URINALYSIS W SPECIFIC UBEBVUD4333-49-63 16:16:00* Test Item Value Reference Range Interpretation Comme nts POCT U SP GRAV (test code = 3255) . 1.005-1.025 POCT PH U (test code = 3254) . 5-8 POCT U LEUK EST (test code = 3263) . Negative - N egative POCT U NIT (test code = 3262) . Negative - Negati ve POCT U PROT (test code = 3259) neg Negative - Negat dash POCT U GLU [...] U APPEAR (test code = 3267) . [facility] URINALYSIS W SPECIFIC DUMCPCQ6391-99-87 16:34:00* Test Item Value Reference Range Interpretation [...] U APPEAR (test code = 3267) . [facility] URINALYSIS W SPECIFIC SYSPQGN9302-20-91 17:03:00* Test Item Value Reference Range Interpretation [...] U APPEAR (test code = 3267) [facility] - NON-INVASIVE TEST RESULTS 2024-11-04 12:56:07Ordered by an unspecified provider.[facility] - NON-INVASIVE TEST TUSDYRT6206-18-60 22:45:35 Ordered by an unspecified provider.[facility] Urinalysis W Specific Nhzjafz6407-34-08 16:04:00* Test Item Value Reference Range Interpretation [...] clear Lab Interpretation (test cod e = 86347-5) Abnormal [facility] URINALYSIS W SPECIFIC [id number] 21:27:00* Test Item Value Reference Range Interpretation [...] code = 3261) . Negative - Negat adsh POCT U BLD (test code = 3257) . Negative - Negati ve POCT U COLOR (test code = 3266) POCT U APPEAR (test code = 3267) [facility] URINALYSIS W SPECIFIC RNURNBX2620-18-28 22:02:00* Test Item Value Reference Range Interpretation [...] U APPEAR (test code = 3267) . [facility] first trimester less than 14 weeks with xgazfacwekru4919-74-60 20:15:24EXAM: US FIRST TRIMESTER LESS THAN 14 WEEKS WITH TRANSVAGINAL HISTORY: 24 years-old Female r/o ectopic RLQ/Back pain. No previous US. LMP = 07/05/2024. Beta-hCG: A beta-hCG has not been collected at the time of dictation.mIU/mL. G/P: 1/0. TECHNIQUE: Survey transabdominal and transvaginal ultrasound imaging andcolor Doppler evaluation of the pelvis was performed. M-mode was used toevaluate the heart. Phlebotomist Medical Lab Assistant images were obtained. COMPARISON: None FINDINGS: Uterus: [...] visualized.. Cul-de-sac: No free fluid is present. [facility]CG Owsnt9481-51-77 19:47:05* Test Item Value Reference Range Interpretation Comme nts BETA HCG (test code = 6919250273) 95372.00 See_Comment [Automated [employer]] The system which generated this result transmitted reference range: Non- female and male patients: <5 mIU/mL. The reference range was not used to interpret this result as normal/abnormal. EVERARDO (test code = EVERARDO) Gestational Age ?Range (mIU/mL) 1-10 ?Weeks ?[id number] Weeks ?91934-31983282-21 Weeks ?1198-64598453-29 Weeks ?9930-260582 Biotin has been reported to cause a negative bias, interpret results relative to patient's use of biotin. [facility]. Metabolic Panel (97415)2024-10-14 19:05:41* Test Item Value Reference Range Interpretation Comme nts NA (test code = 8582275522) 137 mmol/L 135-145 K (test code = 7954374809) 3.7 mmol/L 3.5-5.0 CL (test code = 4332204841) 106 mmol/L 98-108 CO2 TOTAL (test code = 9605365317) 25 mmol/L 23-31 AGAP (test code = 4557824469) 6 2-16 BUN (test code = 7633437466) 5 mg/dL 7-23 L GLUCOSE (test code = 6467011278) 87 mg/dL 70-110 CREATININE (test code = 2160-0) 0.46 mg/dL 0.50-1.04 L TOTAL BILI (test code = 6279300214) 0.2 mg/dL 0.1-1.1 CALCIUM (test code = 1032149503) 9.3 mg/dL 8.6-10.6 T PROTEIN (test code = 8482224819) 7.6 g/dL 6.3-8.2 ALBUMIN (test code = 7614619038) 4.3 g/dL 3.5-5.0 ALK PHOS (test code = 9608039642) 51 U/L 34-122 ALTv (test code = 1742-6) 13 U/L 5-35 AST(SGOT) (test code = 1125330272) 14 U/L 13-40 eGFR (test code = 17559-9) 139.0 mL/min/1.73m2 CKD-EPI eGFR (2020). Assuming creatinine has been stable day-to-day for at least three months, the eGFR indicates Category G1 (>= 90 mL/min/1.73 m2) Lab Interpretation (test code = 14975-7) Abnormal [facility] with Pouh3397-97-15 18:58:02* Test Item Value Reference Range Interpretation [...] 35.0 g/dL 31.6-35.1 RDW-SD (test code = 40055-0) 37.1 fL 39.0-49.9 L RDW-CV (test code = 788-0) 12.0 % 12.0-15.5 PLT (test code = 777-3) 244 166-358 MPV (test code = 12491-6) 9.6 fL 9.5-12.9 NRBC/100 WBC (test code = 4420829754) 0.0 0.0-10.0 NRBC x10^3 (test code = 3572891863) See_Comment [Automated messa ge] The system which generated this result transmitted reference range: 10*3/?L. The reference range was not used to interpret this result as normal/abnormal. GRAN MAT (NEUT) % (test code = 770-8) 67.9 % IMM GRAN % (test code = 9313627386) 0.30 % LYMPH % (test code = 736-9) 24.9 % MONO % (test code = 5905-5) 6.0 % EOS % (test code = 713-8) 0.4 % BASO % (test code = 706-2) 0.5 % GRAN MAT x10^3(ANC) (test code = 8565818265) 5.39 10*3/uL 1.88-7.09 IMM GRAN x10^3 (test code = 0599932945) 0.00-0.06 LYMPH x10^3 (test code = 731-0) 1.98 10*3/uL 1.32-3.29 MONO x10^3 (test code = 742-7) 0.48 10*3/uL 0.33-0.92 EOS x10^3 (test code = 711-2) 0.03 10*3/uL 0.03-0.39 BASO x10^3 (test code = 704-7) 0.04 10*3/uL 0.01-0.07 Lab Interpretation (test code = 52010-3) Abnormal [facility] Vuix6645-12-40 18:31:00* Test Item Value Reference Range Interpretation Comme nts POCT PREG (test code = 1605) Positive On board controls acceptable with C Line (test code = 3574) Yes POCT PREG LOT # (test code = 3575) HCG 0000 [id number] POCT PREG TEST DATE (test code = 3576) 09/23/2025 Lab Interpretation (test cod e = 40364-2) Normal [facility] Urinalysis w/o Specific Bfcerrd0813-38-16 20:38:00* Test Item Value Reference Range Interpretation [...] = 3257) 50 Negative - Negati ve [facility] CenterPOVT Zwus9668-76-14 20:37:00* Test Item Value Reference Range Interpretation Comme nts POCT PREG (test code = 1605) Positive On board controls acceptable with C Line (test code = 3574) Yes POCT PREG LOT # (test code = 3575) POCT PREG TEST DATE ( test code = 3576) [facility] CenterPOCT XGQZ3832-07-73 22:15:00* Test Item Value Reference Range Interpretation Comme nts POCT PREG (test code = 1605) Negative On board controls acceptable with C Line (test code = 3574) Yes POCT PREG LOT # (test code = 3575) HCG [id number] POCT PREG TEST DATE (test code = 3576) 10/11/2024 Lab Interpretation (test cod e = 26213-5) Normal [facility] CenterCOVID[facility] (ID NOW RAPID TESTING)2021-05-22 12:21:27* Test Item Value Reference Range Interpretation Comme nts SARS-CoV-2 Rapid ID NOW (test code = 13520-3) Positive Not Detected A EVERARDO (test code = EVERARDO) ID NOW COVID-19 As say is an isothermal nucleic acid amplification test intended for the qualitative detection of nucleic acid from SARS-CoV-2 viral RNA in nasopharyngeal (ANIME ARTIST) specimens. It is used under Emergency Use [...] clinically indicated. Lab Interpretation (test code = 57011-4) Abnormal [facility] CenterURINALYSIS2021-08-14 12:05:50* Test Item Value Reference Range Interpretation Comme nts APPEARANCE (test code = 1886590088) Clear Clear COLOR (test code = 0643601063) Yellow Yellow PH (test code = 0134144246) 4.8-8.0 SP GRAVITY (test code = 2391149531) 1.003-1.030 GLU U QUAL (test code = 3711996666) Normal Normal BLOOD (test code = 7437133191) 1+ Negative A KETONES (test code = 7416598664) Negative Negative PROTEIN (test code = 2887-8) Negative Negative UROBILIN (test code = 4192443482) Normal Normal BILIRUBIN (test code = 1631363821) Negative Negative NITRITE (test code = 1485324063) Negative Negative LEUK EMILIANO (test code = 4416029689) Negative Negative RBC/HPF (test code = 2573209205) See_Comment [Automated messa ge] The system which generated this result transmitted reference range: 0 - 3 HPF. The reference range was not used to interpret this result as normal/abnormal. WBC/HPF (test code = 4662682847) See_Comment [Automated messa ge] The system which generated this result transmitted reference range: 0 - 5 HPF. The reference range was not used to interpret this result as normal/abnormal. BACTERIA (test code = 7411372044) Few Negative A SQ EPITH (test code = 4770794265) HPF TRANS EPI (test code = 3887589003) <1 See_Comment [Automated messa ge] The system which generated this result transmitted reference range: <=1 HPF. The reference range was not used to interpret this result as normal/abnormal. Lab Interpretation (test code = 14200-8) Abnormal [facility] CenterPOCT UNWD0849-12-50 11:31:00* Test Item Value Reference Range Interpretation Comme nts POCT PREG (test code = 1605) Negative On board controls acceptable with C Line (test code = 3574) Present POCT PREG LOT # (test code = 3575) HCG [id number] POCT PREG TEST DATE ( test code = 3576) 10/08/2022 Lab Interpretation (test cod e = 99570-4) Normal [facility] CenterURINE TSXCHQA8778-92-00 17:42:24* Test Item Value Reference Range Interpretation Comme nts URINE CULTURE (test code = 630-4) 10,000 - 100,000 CFU/mL mixed aerobic organisms - suggests endogenous microbial contamination [facility] (NA, K, CL, CO2, GLUCOSE, BUN, CREATININE, CA)2021-03-12 11:27:06* Test Item Value Reference Range Interpretation Comme nts NA (test code = 0307457261) 137 mmol/L 135-145 K (test code = 4780925677) 3.1 mmol/L 3.5-5.0 L CL (test code = 9268961775) 103 mmol/L 98-108 CO2 TOTAL (test code = 9953560629) 27 mmol/L 23-31 AGAP (test code = 0068532177) 2-16 BUN (test code = 5606923801) 9 mg/dL 7-23 GLUCOSE (test code = 9062654867) 82 mg/dL 70-110 CREATININE (test code = 5272648844) 0.53 mg/dL 0.50-1.04 CALCIUM (test code = 6383460224) 8.9 mg/dL 8.6-10.6 eGFR (test code = 7293230955) mL/min/1.73m2 EVERARDO (test code = EVERARDO) Association [...] imaging tests). Lab Interpretation (test code = 30100-5) Abnormal [facility] CenterMagnesium Ggknu8839-36-37 11:22:32* Test Item Value Reference Range Interpretation Comme nts MAGNESIUM (test code = 6238207998) 2.1 mg/dL 1.7-2.4 Lab Interpretation (test cod e = 92313-3) Normal [facility] CenterCB with Vpmhlefzrokm8554-03-22 11:05:52* Test Item Value Reference Range Interpretation Comme nts WBC (test code = 6690-2) See_Comment [Automated [employer]] The system which generated this result transmitted reference range: 4.50 - 13.50 10*3/?L. The reference range was not used to interpret this result as normal/abnormal. RBC (test code = 789-8) See_Comment [Automated [employer]] The system which generated this result transmitted [...] 34.4 g/dL 32.0-36.0 RDW-SD (test code = 11505-4) 37.9 fL 38.5-49.0 L RDW-CV (test code = 788-0) 12.3 % 11.5-14.0 PLT (test code = 777-3) See_Comment [Automated [employer]] The system which generated this result transmitted reference range: 135 - 361 10*3/?L. The reference range was not used to interpret this result as normal/abnormal. MPV (test code = 93501-8) 10.1 fL 9.4-13.3 NRBC/100 WBC (test code = 2342255765) See_Comment [Automated me ssage] The system which generated this result transmitted reference range: 0.0 - 10.0 /100 WBCs. The reference range was not used to interpret this result as normal/abnormal. NRBC x10^3 (test code = 1649909307) <0.01 See_Comment [Automated messa ge] The system which generated this result transmitted reference range: 10*3/?L. The reference range was not used to interpret this result as normal/abnormal. GRAN MAT (NEUT) % (test code = 770-8) 59.8 % IMM GRAN % (test code = 5802408288) 0.80 % LYMPH % (test code = 736-9) 26.3 % MONO % (test code = 5905-5) 12.3 % EOS % (test code = 713-8) 0.5 % BASO % (test code = 706-2) 0.3 % GRAN MAT x10^3(ANC) (test code = 9409534935) 3.91 10*3/uL 1.50-10.30 IMM GRAN x10^3 (test code = 0666363657) 0.05 10*3/uL 0.00-0.06 LYMPH x10^3 (test code = 731-0) 1.72 10*3/uL 0.70-7.40 MONO x10^3 (test code = 742-7) 0.80 10*3/uL 0.00-0.50 H EOS x10^3 (test code = 711-2) 0.03 10*3/uL 0.00-0.40 BASO x10^3 (test code = 704-7) <0.03 0.00-0.10 Lab Interpretation (test code = 16086-1) Abnormal [facility] CenterCOVID[facility] (ID NOW RAPID TESTING)2021-03-11 18:10:27* Test Item Value Reference Range Interpretation Comme nts SARS-CoV-2 Rapid ID NOW (test code = 83799-7) Not Detected Not Detected EVERARDO (test code = EVERARDO) ID NOW COVID-19 As say is an isothermal nucleic acid amplification test intended for the qualitative detection of nucleic acid from SARS-CoV-2 viral RNA in nasopharyngeal (ANIME ARTIST) specimens. It is used under Emergency Use [...] clinically indicated. Lab Interpretation (test code = 75351-8) Normal [facility] CenterLactic Acid Whole Ulyhm9032-97-25 17:11:07* Test Item Value Reference Range Interpretation Comme nts LACTIC ACID (test code = 3527453941) 0.91 mmol/L 0.50-2.20 Lab Interpretation (test cod e = 71002-2) Normal [facility] CenterCT ABDOMEN PELVIS W NYCSUYPL2086-24-01 16:28:25No acute abnormality identified. INDICATION: ?Abdominal abscess/infection [...] or abscess is noted.IMPRESSIONNo acute abnormality identified. [facility] Zegofklvhjqc8463-26-86 16:05:33* Test Item Value Reference Range Interpretation [...] 34.6 g/dL 32.0-36.0 RDW-SD (test code = 83655-6) 36.3 fL 38.5-49.0 L RDW-CV (test code = 788-0) 11.9 % 11.5-14.0 PLT (test code = 777-3) See_Comment H [Automated message] The system which generated this result transmitted reference range: 135 - 361 10*3/?L. The reference range was not used to interpret this result as normal/abnormal. MPV (test code = 15454-9) 9.6 fL 9.4-13.3 NRBC/100 WBC (test code = 2526221459) See_Comment [Automated message] The system which generated this result transmitted reference range: 0.0 - 10.0 /100 WBCs. The reference range was not used to interpret this result as normal/abnormal. NRBC x10^3 (test code = 9189351424) <0.01 See_Comment [Automated message] The system which generated this result transmitted reference range: 10*3/?L. The reference range was not used to interpret this result as normal/abnormal. GRAN MAT (NEUT) % (test code = 770-8) 86.3 % IMM GRAN % (test code = 9206383220) 0.90 % LYMPH % (test code = 736-9) 6.3 % MONO % (test code = 5905-5) 6.1 % EOS % (test code = 713-8) 0.1 % BASO % (test code = 706-2) 0.3 % GRAN MAT x10^3(ANC) (test code = [id number]) 20.00 10*3/uL 1.50-10.30 H IMM GRAN x10^3 (test code = [id number]) 0.21 10*3/uL 0.00-0.06 H LYMPH x10^3 (test code = 731-0) 1.45 10*3/uL 0.70-7.40 MONO x10^3 (test code = 742-7) 1.42 10*3/uL 0.00-0.50 H EOS x10^3 (test code = 711-2) <0.03 0.00-0.40 BASO x10^3 (test code = 704-7) 0.07 10*3/uL 0.00-0.10 Lab Interpretation (test code = 82533-5) [facility]normal [facility]ysis[facility] 15:41:19* Test Item Value Reference Range Interpretation Comme nts APPEARANCE (test code = 2788511367) Hazy Clear A COLOR (test code = 2135398637) Yellow Yellow PH (test code = 6795453574) 4.8-8.0 SP GRAVITY (test code = 5355341367) 1.003-1.030 GLU U QUAL (test code = 4505389925) Normal Normal BLOOD (test code = 6593391024) 1+ Negative A KETONES (test code = 1874325025) Negative Negative PROTEIN (test code = 2887-8) Negative Negative UROBILIN (test code = 9958659774) Normal Normal BILIRUBIN (test code = 8480995721) Negative Negative NITRITE (test code = 3069548245) Negative Negative LEUK EMILIANO (test code = 9581591420) 500/uL Negative A RBC/HPF (test code = 9181320053) See_Comment H [Automated messa ge] The system which generated this result transmitted reference range: 0 - 3 HPF. The reference range was not used to interpret this result as normal/abnormal. WBC/HPF (test code = 0242644999) See_Comment H [Automated messa ge] The system which generated this result transmitted reference range: 0 - 5 HPF. The reference range was not used to interpret this result as normal/abnormal. BACTERIA (test code = 8672517306) Few Negative A MUCOUS (test code = 3962250272) Slight Negative LPF A SQ EPITH (test code = 4415942032) HPF Lab Interpretation (test code = 66394-0) [facility]normal [facility] Metabolic [id number] 15:37:26* Test Item Value Reference Range Interpretation Comme nts NA (test code = 4049790615) 137 mmol/L 135-145 K (test code = 6194145669) 3.9 mmol/L 3.5-5.0 CL (test code = 0140281215) 104 mmol/L 98-108 CO2 TOTAL (test code = 7108610360) 25 mmol/L 23-31 AGAP (test code = 1541335376) 2-16 BUN (test code = 4615023752) 15 mg/dL 7-23 GLUCOSE (test code = 8857465590) 106 mg/dL 70-110 CREATININE (test code = 1407162580) 0.54 mg/dL 0.50-1.04 TOTAL BILI (test code = 0540539559) 0.8 mg/dL 0.1-1.1 CALCIUM (test code = 5442116854) 9.4 mg/dL 8.6-10.6 T PROTEIN (test code = 5822731522) 7.9 g/dL 6.3-8.2 ALBUMIN (test code = 7251740984) 4.5 g/dL 3.5-5.0 ALK PHOS (test code = 5230860637) 87 U/L 34-122 ALTv (test code = 1742-6) 21 U/L 5-35 AST(SGOT) (test code = 1988694201) 21 U/L 13-40 eGFR (test code = 9084955826) mL/min/1.73m2 EVERARDO (test code = EVERARDO) Association [...] or urine or abnormalities in imaging tests). [facility] CenterLip[facility], [id number] 15:36:45* Test Item Value Reference Range Interpretation Comme nts LIPASE (test code = 1771986040) 52 U/L 0-220 Lab Interpretation (test cod e = 01421-7) Normal [facility] CenterPOCT [id number] 15:06:00* Test Item Value Reference Range Interpretation Comme nts POCT PREG (test code = 1605) negative On board controls acceptable with C Line (test code = 3574) present POCT PREG LOT # (test code = 3575) [id number] POCT PREG TEST DATE ( test code = 3576) 09/07/2022 Lab Interpretation (test cod e = 44243-6) Normal [facility] CenterCOVID-19 (ID NOW RAPID TESTING)2021-02-25 02:15:05* Test Item Value Reference Range Interpretation Comme nts SARS-CoV-2 Rapid ID NOW (test code = 59299-3) Not Detected Not Detected EVERARDO (test code = EVERARDO) ID NOW COVID-19 As say is an isothermal nucleic acid amplification test intended for the qualitative detection of nucleic acid from SARS-CoV-2 viral RNA in nasopharyngeal (ANIME ARTIST) specimens. It is used under Emergency Use [...] clinically indicated. Lab Interpretation (test code = 44264-3) Normal [facility] CenterSARS-CoV-2 (COVID-19) by RT-PCR (HIGH RISK) 2020-04-13 00:00:00* Test Item Value Reference Range Interpretation Comme nts SARS-CoV-2 INTERPRETATION (t est code = 07756) NEGATIVE SOURCE (test code = 40385) NOT SPECIFIED Marco Antonio Goins History and Physical Notes Date/Time Note Provider Source 2025-05-11 19:16:19 TRIAGE/ADMISSION HISTORY & PHYSICAL TRIAGE/ADMISSION DATE: 05/11/2025 7:16 PM OB ATTENDING IN TRIAGE AND/OR ON ADMISSION: ERIKA CHAVARRIA IDENTIFYING DATA Lorrie Tabares is 24 year old, /White, 39w5d, female with SARA. Patient's last menstrual period was 08/06/2024 (approximate). : 2000 Primary [facility] Care Clinic: [facility] CHIEF COMPLAINT IOL HISTORY OF PRESENT ILLNESS Lorrie Tabares is a 24 year old at 39w5d who presents for IOL. Patient denies vaginal bleeding, denies leakage of fluid, denies contractions. Patient denies headache, denies nausea/vomiting, denies RUQ pain, denies visual abnormalities. Endorses normal movement. PAST OBSTETRIC HISTORY OB History Para Term AB Living 1 0 0 0 0 0 SAB IAB Ectopic Multiple Live Births 0 0 0 0 0 # Outcome Date GA Lbr Isiah/2nd Weight Sex Type Anes PTL Lv 1 Current PAST MEDICAL HISTORY Patient Active Problem List Diagnosis Date Noted 39 weeks gestation of 05/11/2025 Encounter for induction of labor 05/11/2025 Rh negative status during in third trimester 05/11/2025 Need for varicella vaccine 05/11/2025 Rh negative state in antepartum period 09/19/2024 Susceptible to varicella (non-immune), currently 09/19/2024 Rubella non-immune status, antepartum 09/19/2024 Supervision of high-risk 09/18/2024 Obesity in 07/16/2019 Operations: Past Surgical History: Procedure Laterality Date ANKLE ORIF Right 04/06/2018 Surgeon: Rah Nicholson [place] [facility] [place] hospitals: none Past Medical History: Diagnosis Date Closed fracture of unspecified part of humerus Screening examination for STD (sexually transmitted disease) CURRENT HEALTH STATUS Medications: Current Facility-Administered Medications Medication Dose Route Frequency Last Rate Last Admin D5W-LR IV infusion 1,000 mL 1,000 mL IV Infusion TITRATE 75 mL/hr at 05/11/252048 1,000 mL at 05/11/252048 lactated ringers IV infusion 250 mL 250 mL IV Infusion PRN - SEE INSTRUCTIONS lidocaine 1% (PF) (XYLOCAINE) injection 0.3 mL 0.3 mL Infiltration PRN - SEE INSTRUCTIONS lidocaine 1% (XYLOCAINE) 10 mg/mL (1 %) injection 50 mL 50 mL Infiltration PRN - SEE INSTRUCTIONS sodium citrate-citric acid (BICITRA) 500-334 mg/5 mL solution 30 mL 30 mL Oral PRE-PROCEDURE ONCE Allergies and drug reactions: Patient has no known allergies. HOME MEDICATIONS Medications Prior to Admission Medication Sig Dispense Refill Last Dose/Taking cyclobenzaprine 5 mg tablet Take 1 tablet by mouth in the morning and 1 tablet at noon and 1 tablet in the evening. 30 tablet 0 PNV 67-iron ps-folate no.1-dha (VITAFOL ULTRA) 29 mg iron- 1 mg-200 mg Cap Take 1 Each by mouth in the morning. 30 capsule 8 proMETHazine 25 mg tablet Take 1 tablet by mouth every 6 (six) hours as needed for Nausea and Vomiting (N/V). 30 tablet 0 SOCIAL HISTORY Tobacco History: Social History Tobacco Use Smoking Status Never Smokeless Tobacco Never Drug History: Social History Substance and Sexual Activity Drug Use Never Alcohol History: Social History Substance and Sexual Activity Alcohol Use Never Alcohol/week: 0.0 standard drinks of alcohol FAMILY HISTORY Family History Problem Relation Age of Onset Neurological Mother Pulmonary Paternal Grandmother Cancer Paternal Grandmother Asthma Paternal Grandmother Heart Paternal Grandfather No Significant Medical Problems Father No Significant Medical Problems Maternal Grandfather REVIEW OF SYSTEMS General: negative Constitutional: negative Eyes: negative ENT/Mouth: negative Cardiovascular: negative Respiratory: negative Gastrointestinal:negative Genitourinary: negative Musculoskeletal: negative Skin/breast: negative Neurological: negative Psychiatric: negative Endocrine: negative Hemat/Lymph: negative Allergic/Immuno:none VITAL SIGNS BP: (115-135)/(69-89) MAP (mmHg): [81-99] Temp: [36.7 ?C (98 ?F)-36.8 ?C (98.2 ?F)] Temp source: Axillary (05/11 2100) Pulse: [82-96] Resp: [17-19] SpO2: [98 %-99 %] Height: [162.6 cm (5' 4")] Weight: [119.3 kg (263 lb)] BMI (calculated): [45.14] PHYSICAL EXAMINATIONS General: patient alert and in no acute distress HEENT: symmetric, negative for masses Lungs: unlabored breathing Breast: deferred Cardiology: peripheral pulses intact and regular Abdomen: soft, non-tender, non-distended, no liver, spleen or abnormal masses palpated and Gravid Extremities: no clubbing, cyanosis, or edema Neuro: patient moving all extremities, no facial droop : SVE Fingertip / 0 / -3 REVIEW OF LABORATORY, PATHOLOGY, AND RADIOLOGY DATA Lab results: CBC BMP PT/INR WBC (10*3/?L) Date Value 05/11/2025 8.24 NA (mmol/L) Date Value 10/14/2024 137 No results found for: "PT" RBC (10*6/?L) Date Value 05/11/2025 4.23 K (mmol/L) Date Value 10/14/2024 3.7 No results found for: "PTINR" PLT (10*3/?L) Date Value 05/11/2025 194 CALCIUM (mg/dL) Date Value 10/14/2024 9.3 HGB (g/dL) Date Value 05/11/2025 12.9 CL (mmol/L) Date Value 10/14/2024 106 aPTT HCT (%) Date Value 05/11/2025 37.0 BUN (mg/dL) Date Value 10/14/2024 5 (L) No results found for: "APTTPAT" CREATININE (mg/dL) Date Value 10/14/2024 0.46 (L) GLUCOSE (mg/dL) Date Value 10/14/2024 87 CO2 TOTAL (mmol/L) Date Value 10/14/2024 25 Type & Screen Rubella Varicella ABO & RH (no units) Date Value 05/11/2025 O NEGATIVE Rubella screen IgG (no units) Date Value 09/18/2024 Negative No components found for: "VZIGG" No results found for: "TSABINT" Hep B HIV Syphilis No results found for: "HBS" No results found for: "HIV" Syphilis IgG/IgM (no units) Date Value 03/17/2025 Nonreactive HBsAg (no units) Date Value 09/18/2024 Negative HBsAg Semi-Quantitative (no units) Date Value 09/18/2024 0.10 No results found for: "HIVMULTIPLEX" Group B Strep Chlamydia Group B Streptococcus by PCR (no units) Date Value 04/15/2025 Negative C. trachomatis Nucleic Acid (no units) Date Value 04/15/2025 Negative GTT No results found for: "GLUF" GLUC 1 HR (mg/dL) Date Value 02/04/2025 88 (L) No components found for: "GLU2H" No results found for: "GLU3H" PASD Screening Prior ? : No Prior Uterine Surgery?: No Placenta low lying/previa in current ? : No Ultrasound suspicion of PASD in current ?: No Screening outcome: A positive screening outcome indicates a history of prior delivery or prior uterine surgery, AND the presence of either a placenta low lying/previa or ultrasound suspicion of PASD in the current . Negative screening. Present on Admission: 39 weeks gestation of Encounter for induction of labor Rh negative status during in third trimester Need for varicella vaccine TRIAGE/ADMISSION ASSESSMENT AND PLAN Lorrie Tabares is a 24 year old at 39w5d by u(9) who presents for IOL. IOL - Denies VB, LOF, CTX - Endorses FM - SVE: Fingertip / 0 / -3 Plan: Admit for IOL with FB. Antepartum course reviewed: - 1 h 88, sero negative, Rnot immune, VZVnot immune, HPV vaccinated, COVID not vaccinated, O negative/IAT negative, GBS negative, Pap WNL - H/H, plt: 12.4 / 35.6, 180 on 04/15/25 - PP control plan: OCPs - [place] RWSP Fetus: - Presentation on admission: cephalic - anterior placenta - EFW: 3886 g, 75%tile; AC: 35.66 cm, 71%tile - FHT reactive and reassuring - Normal anatomy scan Plan was discussed with OB ATTENDING: ERIKA CHAVARRIA OB RESIDENT: Nafisa Colbert MD Cosigned by Erika Chavarria MD at 05/11/2025 10:28 PM CDT Associated attestation - Erika Chavarria MD - 05/11/2025 10:28 PM CDT I was the faculty on L&D on 05/11/2025. Erika Chavarria MD [facility] - [facility] Procedure Notes Date/Time Note Provider Source 2025-05-12 19:30:46 Associated Order(s): Central Neuraxial Block Central Neuraxial Block Date/Time: 05/12/2025 6:55 PM Performed by: Joyce Siddiqui DO Authorized by: Keely Hobson MD Patient Location: OB Reason for Block: OB request, Patient request, Labor analgesia, Surgical anesthesia and Post-op pain management Staff: Anesthesiologist: Keely Hobson MD Resident/PASSENGER AGENT: Joyce Siddiqui DO Performed by: resident/PASSENGER AGENT Preanesthetic Checklist: patient identified, IV checked, risks and benefits explained, monitors and equipment checked, timeout performed, pre-op evaluation, site marked and anesthesia consent Procedure: Type of Neuraxial: Epidural Epidural Description: 1st attempt Sterility Prep cap, drape, gloves, hand hygiene and mask Sedation Level no sedation Patient Position: sitting Prep: Betadine and patient draped Monitoring: heart rate, continuous pulse ox, heart rate / toco and NIBP Location: lumbar (1-5) Lumbar: L3-L4 Approach: midline Technique: KRIS saline Guidance with: landmark technique} Epidural/Spinal [place] and/or Catheter: Epidural/Spinal Kit: BBraun Needle Type: Tuohy Needle Gauge: 17 G Needle Length: 3.5 in (8.89 cm) Needle Insertion Depth: 9.5 Catheter Type: multiport Catheter Size: 19 G Catheter at Skin Depth: 15 Number of Attempts: 1 Test Dose: lidocaine 1.5% with epinephrine 1-to-200,000 and negative Dose: 3 cc Catheter Securement Method: surgical tape, Tegaderm, clear occlusive dressing and liquid medical adhesive Assessment: Block Outcome: patient tolerated procedure well and a full evaluation is pending Procedure Assessment: patient tolerated procedure well with no complications [facility] Notes Date/Time Note Provider Source 2025-05-14 14:12:05 Problem: Falls, Risk of Goal: Absence of falls 05/14/2025 1412 by Bonnie Braswell RN Outcome: Adequate for discharge 05/14/2025 1159 by Bonnie Braswell RN Outcome: Progressing as expected Problem: Discharge Planning - Goal: Adequate for discharge 05/14/2025 1412 by Bonnie Braswell RN Outcome: Adequate for discharge 05/14/2025 1159 by Bonnie Braswell RN Outcome: Progressing as expected Goal: Mood stable 05/14/2025 1412 by Bonnie Braswell RN Outcome: Adequate for discharge 05/14/2025 1159 by Bonnie Braswell RN Outcome: Progressing as expected Problem: Pain Goal: Control of pain at or below patient's documented comfort goal 05/14/2025 1412 by Bonnie Braswell RN Outcome: Adequate for discharge 05/14/2025 1159 by Bonnie Braswell RN Outcome: Progressing as expected Goal: Reduction in pain sensation 05/14/2025 1412 by Bonnie Braswell RN Outcome: Adequate for discharge 05/14/2025 1159 by Bonnie Braswell RN Outcome: Progressing as expected [facility] 2025-05-14 13:40:00 Images from the original note were not included. This note was copied from a baby's chart. Assessment (most recent) Assessment - 05/14/25 1340 General Information Visit Follow-up Infant Oral Assessment Oral assessment New assessment Date of 05/13/25 Time of 0800 location Mother Baby Unit Chin Recessed chin Palate assessment Normal Tongue assessment Sublingual frenulum Restricted tongue motion observed Able to cup finger;Able to strip gloved finger ENT consult recommended -- Follow up with [facility] if struggles to establish/maintain latch, Infant does not meet diaper or weight expectation, or if mother has nipple pain. Literature Resources Education On-demand feeds at least 8 or more over 24 hours;Benefits of skin to skin contact;Lactogenesis;Nippl e shield use, application, washing, storage and weaning;Signs of an effective latch Consulting Practice Director Observation Assist with latch;Mom states latches well with no pain Position left side Football;Infant latched effectively with nipple shield upon release milk visible in shield;Suckled in coordinated bursts Infant latched with nipple shield with small amount of formula placed in shield Mother demonstrated teach back of Application of nipple shield;Positioning and latching infant at breast Follow up Mom will call staff;[facility] warmline;WIC;[facility] Recommended Feeding Plan Recommended feeding plan Frequent kqqa-xx-gcwm time with parents;On-demand , 8-12 times in 24 hours not to exceed 6 hours between feeds;Offer both breasts prior to formula supplementation;Mother choosing to supplement with formula after breastfeeds Elaine Thomas MSN, RNC-MNN, IBCLC Elaine Thomas RN [facility] 2025-05-14 12:12:00 Images from the original note were not included. This note was copied from a baby's chart. Assessment (most recent) Assessment - 05/14/25 1212 General Information Visit Initial Percent of weight loss- Infant 3.67 Mom's age (years) 22 years Gestational age 40 weeks 1 Parity 1 Living Children 1 Feeding plan Breast and Formula plans Undecided Delivery method Breast changes during Enlarged Risk factors Obesity Infant Oral Assessment Oral assessment Deferred Date of 05/13/25 Time of 0800 Infant location Mother Baby Unit Breast Assessment Breast Assessment Initial Symmetry Symmetrical Size M (B-C) Shape Rounded;Pendulous Other Soft Nipple & Areola Assessment Left Areola Pliable Right Areola Pliable Left Nipple Colostrum visible;Intact;Everted;Daya rt Right Nipple Colostrum visible;Intact;Everted;Daya rt Scar noted on tip of nipple. Mother states that she used to have her nipple pierced and it got ripped out in her sleep. Literature Resources Resources guide;Understanding Mother and Baby Care Education 6 months exclusive , up to and beyond 1 year with complimentary foods; hunger cues;On-demand feeds at least 8 or more over 24 hours;Diaper counts/color;Benefits of breastmilk;Hand expression;Risk of formula supplementation;Delay of pacifier/artificial nipples up to 4 weeks;Benefits of skin to skin contact;Encouraged rooming-in;Waking techniques;Signs of an effective latch; stomach size;Calming techniques;2nd day/growth spurt cluster feeds;Breaking seal;Lactogenesis Handouts given [place] Consulting Practice Director Observation Reported;Mom states latches well with no pain mother reports that infant latched well, but she started giving formula becauae she was not feeling well so infant has been only feeding formula. sleep after having a circumcision. Interventions Taught hand expression;Breast massage Follow up Mom will call staff;[facility] warmline;[place] Recommended Feeding Plan Recommended feeding plan Frequent czyj-xo-kxnk time with parents;On-demand , 8-12 times in 24 hours not to exceed 6 hours between feeds;Offer both breasts prior to formula supplementation;Mother choosing to supplement with formula after breastfeeds OTHER $ SERVICES Initial Mother to call for assistance when infant is showing early hunger cues. Elaine Thomas MSN, RNC-MNN, IBCLC [facility] [employer] 2025-05-14 11:59:47 Problem: Falls, Risk of Goal: Absence of falls Outcome: Progressing as expected Problem: Discharge Planning - Goal: Adequate for discharge Outcome: Progressing as expected Goal: Mood stable Outcome: Progressing as expected Problem: Pain Goal: Control of pain at or below patient's documented comfort goal Outcome: Progressing as expected Goal: Reduction in pain sensation Outcome: Progressing as expected [facility] [employer] 2025-05-14 05:20:15 Problem: Falls, Risk of Goal: Absence of falls Outcome: Progressing as expected Problem: Discharge Planning - Goal: Adequate for discharge Outcome: Progressing as expected Goal: Mood stable Outcome: Progressing as expected Problem: Pain Goal: Control of pain at or below patient's documented comfort goal Outcome: Progressing as expected Goal: Reduction in pain sensation Outcome: Progressing as expected Problem: Intrapartum process (including labor pain) Goal: Absence of or reduction of complications of labor Outcome: Resolved Goal: Able to cope with pain Outcome: Resolved Goal: Adequate to move to next level of care Outcome: Resolved Goal: Reduction in pain sensation Outcome: Resolved Count includes the [facility] 2025-05-13 14:43:32 Patient: Lorrie Tabares Procedure Summary Date: 05/12/25 Room / Location: Anesthesia Start: 1854 Anesthesia Stop: 05/13/251214 Procedure: CENTRAL NEURAXIAL BLOCK Diagnosis: Scheduled Providers: Responsible Provider: Tamiko Pierre MD Anesthesia Type: Epidural ASA Status: 3 Anesthesia Type: No value filed. Last vitals BP Temp Pulse Resp SpO2 There were no known notable events for this encounter. Anesthesia Post Evaluation Patient location during evaluation: bedside Patient participation: complete - patient participated Level of consciousness: awake and alert Pain management: satisfactory to patient Airway patency: patent Cardiovascular status: acceptable and blood pressure returned to baseline Respiratory status: acceptable Hydration status: acceptable Comments: Anesthesia TITO Post Operative Faculty Note Date of service: 05/13/2025 Patient is s/p labor epidural placement and removal. Patient examined, patient awake. Patient participation in post anesthesia evaluation: Block not fully resolved, as expected. Patient participated otherwise. Patient advised about fall precautions. Vital Signs: BP 122/83 (BP Location: Left arm, Patient Position: Sitting) | Pulse 83 | Temp 36.7 ?C (98 ?F) (Oral) | Resp 17 | Ht 1.626 m (5' 4") | Wt 119.3 kg (263 lb) | LMP 08/06/2024 (Approximate) | SpO2 97% | BMI 45.14 kg/m? Pain: Scale used: 0 - 10 Ratin Nausea and vomiting: Not present. Post operative/post procedure hydration status: Euvolemic. Post-operative course: Block resolving appropriately, and patient advised about fall precautions as noted above. Complications: No apparent complications Tamiko Pierre MD 05/13/2025 14:43 AN-ANESTHESIOLOGY ANESTHESIOLOGIST [facility] 2025-05-13 12:14:34 Problem: Intrapartum process (including labor pain) Goal: Able to cope with pain Outcome: Progressing as expected Problem: Intrapartum process (including labor pain) Goal: Adequate to move to next level of care Outcome: Progressing as expected Problem: Intrapartum process (including labor pain) Goal: Reduction in pain sensation Outcome: Progressing as expected Problem: Falls, Risk of Goal: Absence of falls Outcome: Progressing as expected Problem: Discharge Planning - Goal: Adequate for discharge Outcome: Progressing as expected Problem: Discharge Planning - Goal: Mood stable Outcome: Progressing as expected Problem: Pain Goal: Control of pain at or below patient's documented comfort goal Outcome: Progressing as expected Problem: Pain Goal: Reduction in pain sensation Outcome: Progressing as expected [facility] 2025-05-13 08:47:43 VAGINAL DELIVERY NOTE Delivery Date: 05/13/2025 Delivery Time: 8:00 AM Delivery Summary Pre-delivery diagnosis: The patient was admitted to the Labor & Delivery unit for sIOL at 39 weeks and 5 days. Post-delivery diagnosis: s/p Isaak-carlos Weight: 3680 g 1 Minute 5 Minute 10 Minute Totals: 8 9 Cord gases obtained: Primary delivering resident: Vita Funez MD Teaching Resident: Ricardo Lomas MD OB Faculty: ERIKA CHAVARRIA OB Fellow: CARRIE CHOW Intrapartum Anesthesia/Analgesia: Epidural Labor Complications:None Additional Complications: None Delivery Blood Loss Delivery: 05/12/251999 - 05/13/25 0853 Delivery Admission: 05/11/251812 - 05/13/25 0853 Delivery Delivery Admission Estimated blood loss (mL) Hospital Encounter 450 mL 450 mL Total 450 mL 450 mL Uterotonics: Yes - methergine and misoprostol TXA given: No Pediatrics was present at delivery: No DELIVERY OF VELASCO FETUS WITH CEPHALIC PRESENTATION ROUTINE VAGINAL DELIVERY Vaginal delivery of head with cephalic position, occipital anterior. As the head crowned and distended the perineum, no episiotomy was performed. A blue towel was used to protect the perineum as the head crowned and delivered. The other hand was used to exert pressure on the occiput to control the delivery of the head. The perineum was pushed with a towel-draped hand as the head and mouth was delivered over the perineum. The head was allowed to rotate externally to match the shoulder with face to maternal right. The right shoulder was anterior. Examination of neck revealed nuchal cord, which was Loose umbilical cord - reduced. The The shoulder was delivered by gentle downward traction applied to head and downward traction for the delivery of anterior shoulder. This was followed by This was followed by upward traction with delivery of posterior shoulder and body. After the delivery of , bulb suction was performed from oropharynx and nostril with removal of moderate meconium. A male was delivered. Delayed cord clamping done Yes. The umbilical cord was double clamped, cut and the infant was handed off the field to the circulating nurse. PLACENTA Placenta was delivered spontaneously while the abdominal hand lifted the uterus cephalad and other hand keeping the umbilical cord slightly taut. Placenta delivered intact: yes FOURTH STAGE Fourth stage of labor was managed by uterine massage with abdominal hand and infusion 30 units of pitocin mixed with intravenous fluid at a rate of 600cc/hour. Due to intermittent atony of the lower uterine segment, methergine 02.mg IM was administered. OBSTETRICAL LACERATION(S): Episiotomy no Laceration type(s): Laceration Repair: Minor - Erica-clitoral laceration was closed in continuous fashion. Right labial laceration closed in continuous fashion. Left labial laceration closed with one figure of eight suture. Due to continued intermittent bogginess of lower uterine segment, misoprostol 1000mcg was administered rectally. Vaginal Counts: Initial count personnel: ARMIN KIDD Initial count verified by: BERNIE BORGES Initial Count 0 10 Added Counts 2 5 Final Count 2 15 Final count personnel: ARMIN KIDD Final count verified by: Tan BORGES RN Accurate final count? Yes Vita MD Armin Cosigned by Erika Chavarria MD at 05/13/2025 8:57 AM CDT Associated attestation - Erika Chavarria MD - 05/13/2025 8:57 AM CDT I was the faculty on L&D on 05/13/2025. I was present for delivery of a viable . No immediate complications noted. Erika Chavarria MD OBSTETRICS & GYNECOLOGY [facility] 2025-05-13 08:30:19 Problem: Intrapartum process (including labor pain) Goal: Absence of or reduction of complications of labor Outcome: Progressing as expected Goal: Able to cope with pain Outcome: Progressing as expected Goal: Adequate to move to next level of care Outcome: Progressing as expected Goal: Reduction in pain sensation Outcome: Progressing as expected Problem: Falls, Risk of Goal: Absence of falls Outcome: Progressing as expected Maggie Borges RN [facility] 2025-05-12 20:18:20 Problem: Intrapartum process (including labor pain) Goal: Absence of or reduction of complications of labor Outcome: Progressing as expected Goal: Able to cope with pain Outcome: Progressing as expected Goal: Adequate to move to next level of care Outcome: Progressing as expected Goal: Reduction in pain sensation Outcome: Progressing as expected Problem: Falls, Risk of Goal: Absence of falls Outcome: Progressing as expected Temi Cabrera RN [facility] 2025-05-12 19:44:02 Name/ MRN / Age / Gender: Lorrie Tabares, [id number] 24 year old female BMI: Estimated body mass index is 45.14 kg/m? as calculated from the following: Height as of this encounter: 1.626 m (5' 4"). Weight as of this encounter: 119.3 kg (263 lb). Allergies: Patient has no known allergies. Last Vitals: BP Readings from Last 1 Encounters: 05/12/25 123/84 Pulse Readings from Last 1 Encounters: 05/12/25 77 SpO2 Readings from Last 1 Encounters: 05/12/25 100% Date of Surgery: 05/12/2025 Surgeon: * No surgeons listed * Procedure: CENTRAL NEURAXIAL BLOCK OR Location: [facility] ANESTHESIA OUT OF OR - OR LOCATION Anesthesia Preop Eval (physical exam) Anesthesia Preop: Chart Review and [id number] PONV Risk Factors: female and non-smoker PONV Risk Score: 2 Anesthesia History Anesthesia History Negative Previous Anesthetics/Airways Cardiovascular Negative Cardiac ROS Pulmonary Negative Pulmonary ROS Neuro/Musculoskeletal Negative Neuro/Musculosketal ROS GI/Hepatic Negative GI/Hepatic ROS Hematology Negative Hematology ROS Comments: HGB (g/dL) Date Value 05/11/2025 12.9 Renal Negative Renal ROS Comments: CREATININE (mg/dL) Date Value 10/14/2024 0.46 (L) K (mmol/L) Date Value 10/14/2024 3.7 Skin Negative Skin ROS Endo/Other Negative Endo/Other ROS Comments: HGB A1C (%) Date Value 09/18/2024 4.5 Other CHIEF RADIATION THERAPIST Comments: Lorrie Tabares is a 24 year old, , /White female. Patient's last menstrual period was 08/06/2024 (approximate). She is 38w6d with an intrauterine . Her estimated date of delivery is 05/13/2025, by Last Menstrual Period. She has no complaints today. Pediatric Pediatric N/A N/A Preoperative Medication Instructions Continue taking all prescribed medications except: JENNIFER inhibitors, ARBs, diuretics, all oral diabetes medications Anticoagulant Therapy: Defer to surgeons Insulin: Take 1/2 dose the night prior to surgery. Hold on DOS. Phentermine: Alert [facility] anesthesiologist SGLT2 Inhibitors: "gliflozins" to be held for 3 days prior to elective surgeries GLP1 Agonosit: stop 7 days prior to surgery MAC Cases: Continue taking JENNIFER inhibitors and ARBs ASA Classification ASA: 3 Labs: Chemistry 10/14/2024 CBC 05/11/2025 137 106 5 (L) 87 8.24 12.9 194 3.7 25 0.46 (L) 37.0 eGFR: 139.0 Date: 10/14/2024 ANC: 5.84 Date: 05/11/2025 LFTs 10/14/2024 Coags AST: 14 AP: 51 Prot: 7.6 Ca: 9.3 PT: - Date: - ALT: 13 T Slava: 0.2 Alb: 4.3 PTT: - Date: - PO4: - Date: - INR: - Date: - Cardiac Endocrine & other pBNP: - Date: - A1C: 4.5 Date: 09/18/2024 Trop I: - Date: - POCT A1C: - Date: - CK: - Date: - TSH: - Date: - CKMB: - Date: - FT4: - Date: - LDL: - Date: - Lact: - Date: - Procal: - Date: - Respiratory -|-|-|-|- D-dimer: - ABG Date: - Date: - Miscellaneous Type and Screen: O NEGATIVE Antibody: Negative Date: 05/11/2025 POCT : Positive Date: 10/14/2024 Current Medications: No outpatient medications have been marked as taking for the 05/11/25 encounter (Hospital Encounter). Previous Surgeries: Past Surgical History: Procedure Laterality Date ANKLE ORIF Right 04/06/2018 Surgeon: Rah Nicholson MD; [place] [facility] [place] Exam General no apparent distress and alert and oriented x 3 Neuro/Psych neurological Nonfocal Dental no notable dental hx Abdominal GI exam normal (+) abdomen soft, benign and gravid Airway Mallampati score:II NECK: thick Neck ROM: full Mouth opening:normal (+) Normal facies Extremity Normal extremity Pulmonary pulmonary exam normal and bilateral clear to auscultation Other Cardiovascular cardiovascular exam normalRhythm:Regular Rate: Normal Anesthesia Plan ASA Status: 3 Plan discussed during pre-op evaluation: General, Epidural and Spinal Anesthetic plan on DOS: Epidural Anesthesia 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 as calculated from the following: Height as of this encounter: 1.626 m (5' 4"). Weight as of this encounter: 119.3 kg (263 lb). Allergies: Patient has no known allergies. Last Vitals: BP Readings from Last 1 Encounters: 05/12/25 123/84 Pulse Readings from Last 1 Encounters: 05/12/25 77 SpO2 Readings from Last 1 Encounters: 05/12/25 100% Date of Surgery: 05/12/2025 Surgeon: * No surgeons listed * Procedure: CENTRAL NEURAXIAL BLOCK OR Location: [facility] ANESTHESIA OUT OF OR - OR LOCATION Anesthesia Preop Eval (physical exam) Anesthesia Preop: Chart Review and Patd-sk-Ppar Anesthesia History Anesthesia History Negative Previous Anesthetics/Airways Cardiovascular Negative Cardiac ROS Pulmonary Negative Pulmonary ROS Neuro/Musculoskeletal (+) Obesity GI/Hepatic Negative GI/Hepatic ROS Hematology Negative Hematology ROS Renal Negative Renal ROS Skin (+) Current IV access Endo/Other Negative Endo/Other ROS Other CHIEF RADIATION THERAPIST Comments: G1 at 39w5d admitted for IOL Fetus: cephalic, anterior placenta, normal anatomy scan Pediatric Pediatric N/A N/A Preoperative Medication Instructions Continue taking all prescribed medications except: JENNIFER inhibitors, ARBs, diuretics, all oral diabetes medications Anticoagulant Therapy: Defer to surgeons Insulin: Take 1/2 dose the night prior to surgery. Hold on DOS. Phentermine: Alert [facility] anesthesiologist SGLT2 Inhibitors: "gliflozins" to be held for 3 days prior to elective surgeries GLP1 Agonosit: stop 7 days prior to surgery MAC Cases: Continue taking JENNIFER inhibitors and ARBs ASA Classification ASA: 2 Labs: Chemistry 10/14/2024 CBC 05/11/2025 137 106 5 (L) 87 8.24 12.9 194 3.7 25 0.46 (L) 37.0 eGFR: 139.0 Date: 10/14/2024 ANC: 5.84 Date: 05/11/2025 LFTs 10/14/2024 Coags AST: 14 AP: 51 Prot: 7.6 Ca: 9.3 PT: - Date: - ALT: 13 T Slava: 0.2 Alb: 4.3 PTT: - Date: - PO4: - Date: - INR: - Date: - Cardiac Endocrine & other pBNP: - Date: - A1C: 4.5 Date: 09/18/2024 Trop I: - Date: - POCT A1C: - Date: - CK: - Date: - TSH: - Date: - CKMB: - Date: - FT4: - Date: - LDL: - Date: - Lact: - Date: - Procal: - Date: - Respiratory -|-|-|-|- D-dimer: - ABG Date: - Date: - Miscellaneous Type and Screen: O NEGATIVE Antibody: Negative Date: 05/11/2025 POCT : Positive Date: 10/14/2024 Current Medications: No outpatient medications have been marked as taking for the 05/11/25 encounter (Hospital Encounter). Previous Surgeries: Past Surgical History: Procedure Laterality Date ANKLE ORIF Right 04/06/2018 Surgeon: Rah Nicholson MD; [place] [facility] [place] Exam General no apparent distress and alert and oriented x 3 Neuro/Psych neurological Dental Abdominal (+) obesity and gravid Airway Mallampati score:III TM distance:> 5 cm Neck ROM: full Mouth opening:normal Extremity Normal extremity Pulmonary pulmonary exam normal Other Cardiovascular cardiovascular exam normal Anesthesia Plan ASA Status: 2 Plan discussed during pre-op evaluation: General, Epidural and Spinal Anesthetic plan on DOS: Epidural Anesthesia plan 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 Post-Operative Analgesia: routine analgesia & antiemetics Recovery Plan: LDR Additional comments: AN-ANESTHESIOLOGY ANESTHESIOLOGIST [facility] 2025-05-12 07:31:34 Problem: Intrapartum process (including labor pain) Goal: Absence of or reduction of complications of labor 05/12/2025730 by Kamryn Middleton, RN Outcome: Progressing as expected 05/12/2025727 by Kamryn Middleton RN Outcome: Progressing as expected Goal: Able to cope with pain 05/12/2025730 by Kamryn Middleton RN Outcome: Progressing as expected 05/12/2025727 by Kamryn Middleton RN Outcome: Progressing as expected Goal: Adequate to move to next level of care 05/12/2025730 by Kamryn Middleton RN Outcome: Progressing as expected 05/12/2025727 by Kamryn Middleton RN Outcome: Progressing as expected Goal: Reduction in pain sensation 05/12/2025730 by Kamryn Middleton RN Outcome: Progressing as expected 05/12/2025727 by Kamryn Middleton RN Outcome: Progressing as expected Problem: Falls, Risk of Goal: Absence of falls 05/12/2025730 by Kamryn Middleton RN Outcome: Progressing as expected 05/12/2025727 by Kamryn Middleton RN Outcome: Progressing as expected Kamryn Middleton RN [facility] 2025-05-05 08:58:10 Noted. Pt has an appt today at 1100. NANCY MADERA RN 05/05/2025 8:58 AM Nancy Madera RN [facility] 2025-02-11 15:05:39 Routed to provider Basilio Chao LVN [facility] 2025-02-05 11:17:32 Nurse reply via Podclass message. Basilio Chao LVN [facility] 2025-01-28 14:39:36 Called pt, discussed and educated on rh negative status of mom and baby. Patient verbalized understanding. Gissell Barnes RN 01/28/25 2:40 PM T [facility] 2025-01-23 13:28:43 Patient informed of no need for additional USG at this time, verbalized understanding. T [facility] 2025-01-23 08:05:42 Attempted to call patient, no answer, left vm. T [facility] 2025-01-22 16:08:38 Pt had an anatomy scan completed last month, the result wnl , no recommendations for additional usg were noted. If patient desires 3d/4d ultrasound she can make an appt with [facility] for the fun ultrasound pics, but as of right now there is no medical indication for another ultrasound. MOJGAN Mcginnis 01/22/2025 4:09 PM [facility] 2025-01-22 12:57:33 Lorrie Tabares is a 24 year old female Patient requesting referral for ultrasound to be placed to schedule appointment, please call [phone] (home) Isabel Villanueva [facility] 2024-10-29 14:11:00 Access Center Lorrie Tabares is a 24 year old female Received Podclass message: ever since I ve been taking [...] / Severity: headache "it doesn't really hurt" / after taking Tylenol 3 hours ago Associated [...] Reason for Disposition Headache Protocols used: - Tizyjyuj-OSGOY-LO ADALID Santa, RN [facility] Access Center Triage Nurse [employer] SECURITY SPECIALIST Vicki Light RN [facility] 2024-10-28 17:50:05 Spoke to patient to answer questions regarding test results. Pt verbalized understanding. Torrez RN [facility] 2024-10-28 16:57:06 Patient is positive for BV. Sent Metronidazole to the pharmacy. [facility] 2024-10-28 16:45:37 Lorrie Tabares is a 24 year old female. Patient is calling asking to speak with a nurse regarding lab results Mary [facility] Marco Antonio Zhang [facility]2025-01-06 15:02:21 Pt given printed and verbal discharge [...] no apparent distress. Left with spouse. [id number] 11:35:00 Patient arrived ambulatory c/o right sided low back pain that radiates down to her right buttock. Denies any injury. Last medicated with tylenol yesterday. Patient is 10 weeks. G1. Has not seen an obgyn yet. Batista [id number] 07:43:01 Called pt, discussed results and poc. Verbalized understanding. Gissell Barnes RN 09/20/24 7:43 AM [facility]2024-12-13 07:36:20 Duplicate encounter. Gissell Barnes RN 09/20/24 7:36 AM [facility]2024-12-12 17:41:00 Lorrie Tabares is a 23 year old female Patient is returning a missed call to the clinic nurse in regards to results Please advise [phone] (home) [facility] - [address] [place] [address] [facility] Amber [id number] 15:00:42 Called pt, no answer. Left vm. Gissell Barnes RN 09/19/24 3:00 PM [facility]2024-12-12 14:09:10 Pt is Rh neg, please inform her she will need rhogam at 28 wks and prn vaginal bleeding MOJGAN Mcginnis 09/19/2024 2:09 PM [place] [id number] 18:15:58 Pt given printed and verbal discharge [...] no apparent distress, Shira Batista [id number] 14:11:47 Patient to ED for vomiting x 3 days. Her abdomen feels like it is on fire. Every time she eats she vomits. She felt like this last time and she got admitted per patient. Ced Womack [facility]
[2025-05-17] MEDS ORDERED: HYDROCODONE/APAP 5/325 MG TAB ONE (01:12)
[2025-05-17 01:39] LABS: PT Prothrombin Time 12.6 SECONDS (10-13.0); Protime INR 1.12
[2025-05-17 01:40] LABS: Absolute Lymphocytes (CBC) 2.3 K/uL (0.7-4.9); Hematocrit 29.8 % (36.0-45.0); Hemoglobin 10.7 g/dL (12.0-15.0); MCH 31.1 pg (27.0-35.0); MCHC 35.8 g/dL (32.0-36.0); MCV 86.7 fL (80-100); MPV 7.7 fL (7.6-11.3); Nucleated RBC Absolute Count 0.0 (0-0); Nucleated Red Blood Cells % 0.0 % (0-0); RBC Red Blood Cell Count 3.44 M/uL (3.86-4.86); White Blood Count 7.80 thou/uL (4.3-10.9)
[2025-05-17 01:56] LABS: ALT/SGPT 23 U/L (13-56); Albumin 2.5 g/dL (3.4-5.0); Albumin/Globulin Ratio 0.7 (1.1-1.8); Alkaline Phosphatase 97 U/L (45-117); Anion Gap 10.5 mEq/L (5.0-15.0); BUN Blood Urea Nitrogen 10 mg/dL (7-18); Globulin 3.8 g/dL (2.3-3.5); Glucose Level 87 mg/dL (74-106); Magnesium 1.9 mg/dL (1.6-2.4); NT PRO-BNP 46 pg/mL (<125); Potassium 3.5 mEq/L (3.5-5.1); Thyroid Stimulating Hormone 3.370 uIU/mL (0.358-3.740); Troponin High Sensitivity 4.0 pg/mL (<58.9)
[2025-05-17 02:13] LABS: AST/SGOT < 10 U/L (15-37); Bilirubin Indirect, Calculated 0.1 mg/dL (0.2-0.8)
--- NOTE | 2025-05-17 03:19 | ER ---
Nurse's Notes [facility] Name: Latonia Tabares Age: 24 yrs Sex: Female : 2000 Arrival Date: 05/17/2025 Time: 00:31 Bed 7 Private MD: Diagnosis: Bilateral lower extremity edema, hypoalbuminemia, vaginal pain, labial swelling and pain Presentation: 05/17 00:39 Chief complaint:. Chief complaint: Patient states: gave a few days ago on may vc1 2024 and reports swollen feet. Coronavirus screen: Vaccine status: Patient reports being unvaccinated. At this time, the client does not indicate any symptoms associated with coronavirus-19. Ebola Screen: No symptoms or risks identified at this time. Initial Sepsis Screen: Does the patient meet any 2 criteria? No. Patient's initial sepsis screen is negative. Does the patient have a suspected source of infection? No. Patient's initial sepsis screen is negative. Risk Assessment: Do you want to hurt yourself or someone else? Patient reports no desire to harm self or others. Onset of symptoms was May 13, 2025. 00:39 Method Of Arrival: Ambulatory vc1 00:39 Acuity: NICHO 3 vc1 Triage Assessment: 00:44 General: Appears in no apparent distress. Behavior is calm, cooperative. Pain: vc1 Complains of pain in right foot and left foot Pain currently is 8 out of 10 on a pain scale. Quality of pain is described as throbbing, Is continuous, Alleviated by medications, ibuprofen 800 mg Current management is with Advil. PRESTO LOG OPERATOR: 00:44 LMP N/A - Recent , Not vc1 00:48 1, Full Term 1, Premature 0, Living 1, unknown vc1 Historical: - Allergies: 00:44 No Known Allergies; vc1 - Home Meds: 00:44 Iron CR Oral [Active]; vc1 - PSHx: 00:44 Right Ankle; vc1 - Immunization history:: Adult Immunizations up to date. - Infectious Disease History:: Denies. - Social history:: Smoking status: Patient denies any tobacco usage or history of. - Family history:: not pertinent. Screenin:24 [facility] ED Fall Risk Assessment (Adult) History of falling in the last 3 months, km10 including since admission No falls in past 3 months (0 pts) Confusion or Disorientation No (0 pts) Intoxicated or Sedated No (0 pts) Impaired Gait No (0 pts) Mobility Assist Device Used No (0 pt) Altered Elimination No (0 pt) Score/Fall Risk Level 0 - 2 = Low Risk Oriented to surroundings, Maintained a safe environment, Hourly rounding (assess needs \T\ fall precautionary measures) done. Abuse screen: Denies threats or abuse. Denies injuries from another. Nutritional screening: No deficits noted. Tuberculosis screening: No symptoms or risk factors identified. Assessment: 01:00 General: Appears uncomfortable, Behavior is calm, cooperative, appropriate for age. km10 01:00 Pain: Complains of pain in bilateral feet, vaginal. Neuro: Level of Consciousness is km10 awake, alert, obeys commands, Oriented to person, place, time, situation, Appropriate for age Gait is steady. Cardiovascular: Reports shortness of breath, Edema is 1+ to left foot and right foot. Respiratory: Airway Respiratory effort is even, unlabored, Respiratory pattern is regular, symmetrical, Parent/caregiver reports the patient having shortness of breath on exertion. 02:58 Reassessment: Patient appears in no apparent distress at this time. No changes from km10 previously documented assessment. Patient and/or family updated on plan of care and expected duration. Pain level reassessed. Patient is alert, oriented x 3, equal unlabored respirations, skin warm/dry/pink. Patient states symptoms have improved. Vital Signs: 00:39 BP 143 / 99; Pulse 74; Resp 16; Temp 98.3; Pulse Ox 100% on R/A; Weight 104.33 kg; vc1 Height 5 ft. 4 in. ; Pain 8/10; 02:58 BP 124 / 66; Pulse 73; Resp 14; Pulse Ox 99% on R/A; km10 00:39 Body Mass Index 39.48 (104.33 kg, 162.56 cm) vc1 00:39 Pain Scale: Adult vc1 Sheridan Coma Score: 02:58 Eye Response: spontaneous(4). Motor Response: obeys commands(6). Verbal Response: km10 oriented(5). Total: 15. 04:06 Eye Response: spontaneous(4). Motor Response: obeys commands(6). Verbal Response: sp4 oriented(5). Total: 15. ED Course: 00:35 Patient arrived in ED. al6 00:44 Triage completed. vc1 00:44 Arm band placed on right wrist. vc1 00:46 Marva Casarez RN is Primary Nurse. km10 00:47 Matt Manuel MD is Attending Physician. sp4 01:03 Inserted saline lock: 20 gauge in right antecubital area, using aseptic technique. km10 Blood collected. Flushed with 10 mL NS. :03 No provider procedures requiring assistance completed. km10 01:07 PT-INR Sent. km10 01:07 NT PRO-BNP Sent. km10 01:07 Magnesium Sent. km10 01:07 LFT's Sent. 10 : CBC with Diff Sent. 10 :07 Basic Metabolic Panel Sent. 10 01:16 CK Sent. 10 01:16 TSH Sent. :16 T4 Free Sent. km10 01:24 Patient has correct armband on for positive identification. Bed in low position. Call km10 light in reach. Side rails up X2. Provided Education on: plan of care. Client placed on continuous cardiac and pulse oximetry monitoring. NIBP monitoring applied. alarm security or surveillance monitor on. Door closed. Noise minimized. Lights dimmed. Warm blanket given. Pillow given. 01:26 XRAY Chest (1 view) In Process Unspecified. EDMS 03:19 IV discontinued, intact, bleeding controlled, No redness/swelling at site. Pressure km10 dressing applied. Administered Medications: 01:16 Drug: HYDROcodone-acetaminophen PO 5 mg-325 mg 2 tabs PO once Route: PO; km10 03:20 Follow up: Response: No adverse reaction; Pain is decreased km10 Medication: 01:29 VIS not applicable for this client. km10 Outcome: 03:18 Discharge ordered by . sp4 03:19 Discharged to home ambulatory, km10 03:19 Condition: stable 03:19 Discharge instructions given to patient, Instructed on discharge instructions, follow up and referral plans. medication usage, Demonstrated understanding of instructions, follow-up care, Prescriptions given X 1, 03:25 Discharged to km10 03:25 Discharge instructions given to Demonstrated understanding of medications, 03:26 Patient left the ED. km10 Signatures: Dispatcher [facility] EDMS Arlene Toussaint RN RN vc1 Matt Manuel MD MD sp4 Elin Weinstein al6 Marva Casarez, BERNIE RN km10 Corrections: (The following items were deleted from the chart) 03:25 03:19 Discharge instructions given to patient, Instructed on discharge instructions, km10 follow up and referral plans. Demonstrated understanding of instructions, follow-up care, km10
--- NOTE | 2025-05-17 03:19 | EDPHYS ---
Physician Documentation [facility] Name: Latonia Tabares Age: 24 yrs Sex: Female : 2000 Arrival Date: 05/17/2025 Time: 00:31 Bed 7 Private MD: ED Physician Matt Manuel HPI: 05/17 00:48 This 24 yrs old Female presents to ER via Ambulatory with complaints of Feet sp4 Swelling, Leg Swelling, vag swelling. 04:07 Patient status post spontaneous vaginal delivery 05/13/2025 , presents with moderate sp4 bilateral lower extremity edema vaginal pain as well after delivery. 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 - Infectious Disease History:: Denies. - Social history:: Smoking status: Patient denies any tobacco usage or history of. - Family history:: not pertinent. ROS: 04:07 Constitutional: Negative for fever, chills, and weight loss, positive for bilateral sp4 lower extremity swelling, positive for vaginal pain and lochia 04:07 All other systems are negative, Exam: 03:16 Constitutional: This is a well developed, well nourished patient who is awake, alert, sp4 and in no acute distress. Head/Face: Normocephalic, atraumatic. Eyes: Pupils equal round and reactive to light, extra-ocular motions intact. Lids and lashes normal. Conjunctiva and sclera are not injected. Cornea within normal limits. Periorbital areas with no swelling, redness, or edema. ENT: Nares patent. No nasal discharge, no septal abnormalities noted. Tympanic membranes are normal and external auditory canals are clear. Oropharynx with no redness, swelling, or masses, exudates, or evidence of obstruction, uvula midline. Mucous membranes moist. Neck: Trachea midline, no thyromegaly or masses palpated, and no cervical lymphadenopathy. Supple, full range of motion without nuchal rigidity, or vertebral point tenderness. Chest/axilla: Normal chest wall appearance and motion. Nontender with no deformity. No lesions are appreciated. Cardiovascular: Regular rate and rhythm with a normal S1 and S2. No gallops, murmurs, or rubs. No pulse deficits. Respiratory: Lungs have equal breath sounds bilaterally, clear to auscultation and percussion. No rales, rhonchi or wheezes noted. No increased work of breathing, no retractions or nasal flaring. Abdomen/GI: Soft, with normal bowel sounds. No distension or tympany. No guarding or rebound. No evidence of tenderness throughout. Back: No spinal tenderness. No costovertebral tenderness. Skin: Warm, dry with normal turgor. Normal color with no rashes, no lesions, and no evidence of cellulitis. MS/ Extremity: Pulses equal, no cyanosis. Neurovascular intact. Full, normal range of motion. Neuro: Awake and alert, GCS 15, oriented to person, place, time, and situation. Cranial nerves II-XII grossly intact. Motor strength 5/5 in all extremities. Sensory grossly intact. Psych: Awake, alert, with orientation to person, place and time. Behavior, mood, and affect are within normal limits 03:16 ECG was reviewed by the Attending Physician. EKG at 0104 normal sinus rhythm rate 86 Vital Signs: 00:39 BP 143 / 99; Pulse 74; Resp 16; Temp 98.3; Pulse Ox 100% on R/A; Weight 104.33 kg; vc1 Height 5 ft. 4 in. ; Pain 8/10; 02:58 BP 124 / 66; Pulse 73; Resp 14; Pulse Ox 99% on R/A; km10 00:39 Body Mass Index 39.48 (104.33 kg, 162.56 cm) vc1 00:39 Pain Scale: Adult vc1 [place] Coma Score: 02:58 Eye Response: spontaneous(4). Motor Response: obeys commands(6). Verbal Response: km10 oriented(5). Total: 15. 04:06 Eye Response: spontaneous(4). Motor Response: obeys commands(6). Verbal Response: sp4 oriented(5). Total: 15. MDM: 02:06 Medical Screening Exam initiated sp4 04:07 Differential Diagnosis flu, Bilateral lower extremity edema, hypoalbuminemia,. Data sp4 reviewed: vital signs, nurses notes, lab test result(s), EKG, radiologic studies. 04:09 ED course: PROCEDURE: XR Chest, 1 View CLINICAL INDICATION: The patient is 24 years old sp4 and is Female; Chest pain. TECHNIQUE: Frontal view of the chest. COMPARISON: XR Chest 11/02/2023. FINDINGS: LUNGS: No discrete focal consolidation. PLEURAL SPACE: No appreciable pleural effusion or pneumothorax. MEDIASTINUM: Prominence of the cardiomediastinal silhouette, likely exaggerated secondary to portable technique, lordotic positioning, and patient body habitus. BONES/JOINTS: No acute osseous abnormality. IMPRESSION: No acute findings in the chest. . 05/17 00:54 Order name: Basic Metabolic Panel; Complete Time: 03:04 4 05/17 00:54 Order name: CBC with Diff; Complete Time: 03:04 4 05/17 00:54 Order name: LFT's; Complete Time: 03:04 4 05/17 00:54 Order name: Magnesium; Complete Time: 03:04 4 05/17 00:54 Order name: NT PRO-BNP; Complete Time: 03:04 sp4 05/17 00:54 Order name: PT-INR; Complete Time: 03:04 4 05/17 00:54 Order name: Troponin HS; Complete Time: 03:04 4 05/17 00:54 Order name: CK; Complete Time: 03:04 sp4 05/17 00:54 Order name: TSH; Complete Time: 03:04 4 05/17 00:54 Order name: T4 Free; Complete Time: 03:04 4 05/17 00:54 Order name: XRAY Chest (1 view) sp4 05/17 00:54 Order name: EKG; Complete Time: 00:55 sp4 05/17 00:54 Order name: Cardiac monitoring; Complete Time: 01:07 4 05/17 00:54 Order name: EKG - Nurse/Tech; Complete Time: 01:07 4 05/17 00:54 Order name: IV Saline Lock; Complete Time: 01:07 4 05/17 00:54 Order name: Labs collected and sent; Complete Time: 01:07 4 05/17 00:54 Order name: O2 Per Protocol; Complete Time: : 4 05/17 00:54 Order name: O2 Sat Monitoring; Complete Time: 01:07 sp4 EC:04 Rate is 86 beats/min. Rhythm is regular, Normal Sinus Rhythm. QRS [place] is Normal. AR sp4 interval is normal. QRS interval is normal. QT interval is normal. No Q waves. T waves are Normal. No ST changes noted. Clinical impression: Normal ECG. Interpreted by me. Reviewed by me. Administered Medications: 01:16 Drug: HYDROcodone-acetaminophen PO 5 mg-325 mg 2 tabs PO once Route: PO; km10 03:20 Follow up: Response: No adverse reaction; Pain is decreased km10 Disposition Summary: 05/17/25 03:18 Discharge Ordered Problem: new sp4 Symptoms: have improved sp4 Condition: Stable sp4 Diagnosis - Bilateral lower extremity edema, hypoalbuminemia, vaginal pain, sp4 labial swelling and pain Followup: sp4 - With: Private Physician - When: 5 - 6 days - Reason: Recheck today's complaints Discharge Instructions: - Discharge Summary Sheet sp4 - Peripheral Edema sp4 Forms: - Patient Portal Instructions sp4 Prescriptions: - acetaminophen-codeine 300-60 mg Oral tablet - take 1 tablet ORAL route every 4 hours as needed for pain; 21 tablet; Refills: sp4 0, Product Selection Permitted Signatures: Dispatcher [employer] EDMS Arlene Toussaint RN RN vc1 Matt Manuel MD MD sp4 Marva Casarez RN RN km10
--- NOTE | 2025-05-17 03:30 | RAD REPORT ---
PROCEDURE: XR Chest, 1 View CLINICAL INDICATION: The patient is 24 years old and is Female; Chest pain. TECHNIQUE: Frontal view of the chest. COMPARISON: XR Chest 11/02/2023. FINDINGS: LUNGS: No discrete focal consolidation. PLEURAL SPACE: No appreciable pleural effusion or pneumothorax. MEDIASTINUM: Prominence of the cardiomediastinal silhouette, likely exaggerated secondary to portab le technique, lordotic positioning, and patient body habitus. BONES/JOINTS: No acute osseous abnormality. IMPRESSION: No acute findings in the chest. Electronically signed by: Corona Godfrey MD 05/17/2025 03:17 AM CDT RP Due to temporary technical issues with the PACS/[employer] reporting system, reports are being julia d by the in-house radiologist without review as a courtesy to ensure prompt reporting the interpreting radiologist is fully responsible for the content of the report. Transcribed Date/Time: 05/17/2025 3:29 AM
[2025-05-17 03:49] VITALS: TEMP 98.3
[2025-05-17 03:50] VITALS: BP 124/66; O2SAT 99
== END 2025-05-17 03:26 | disposition home or self-care (01) ==
LOC: ER 00:31
DX: R60.0 Localized edema (principal); E88.09 Other disorders of plasma-protein metabolism, not elsewhere classified; O90.89 Other complications of the puerperium, not elsewhere classified
CPT/HCPCS: 36415; 71045; 80048; 80076; 82550; 83735; 83880; 84439; 84443; 84484; 85025; 85610; 93005; 99284

== ENCOUNTER 2025-06-01 15:40 | Emergency (ER) | payer OTHER ==
--- OUTSIDE RECORDS SUMMARY | 2025-06-01 15:50 | XMS REPORT | Continuity of Care Document ---
Author Name Unknown Address [address] [facility] [address] [place] [address] [facility] Address [address] [facility] [address] [place] [address] Care Team Providers Care Registered Nurse Renal Name Role Phone Vivienne Weiner Primary Care Physician [phone] [facility], [facility] Attending Clinician Nubia Hall Attending Clinician + ERIKA CHAVARRIA Attending Clinician Unavailable ERIKA CHAVARRIA Attending Clinician Unavailable YAS ESCAMILLA Attending Clinician Unavailable Tamiko Pierre MD Attending Clinician + [phone] Joyce Siddiqui DO Attending Clinician + [phone] Doctor Unassigned, [place] Attending Clinician U NUBIA Berman Attending Clinician Unavail able JONO ZELAYA Attending Clinician Un available Umang RIZVI, Ayala Rolon Attending Clinician Nadege GIBBS, Vicki Attending Clinician Unavailabl Faiza Snyder Attending Clinician + [phone] FAIZA REYES Attending Clinician Unavailable Unknown, Attending Attending Clinician Unavailab ABI Mcdaniels Attending Clinician Unavailable ABI LÓPEZ Attending Clinician Unavailable ABI LÓPEZ Attending Clinician Unavailable Ultrasound, Ang-hoa Attending Clinician Unavailjeaneth López MD, Abi Attending Clinician [phone] AYALA HECK Attending Clinician Unavaila FABRIZIO Haque Attending Clinician Unavailable FABRIZIO TINSLEY Attending Clinician Unavailable Fabrizio Tinsley DO Attending Clinician + JENNIFER AYOUB Attending Clinician Unavailable Mega CAREER ADVISOR, Jennifer Attending Clinician [phone] THELMA GARCIA Attending Clinician Unavailable Thelma Gore Attending Clinician + [phone] Ceci GIBBS, Gissell Attending Clinician Monse vailable Doctor Unassigned, [place] Attending Clinician U navailable Nubia Sorenson Attending Clinician + MICHA VANESSA Attending Clinician Unavailable Micha Zamudio Attending Clinician +[phone] Suzette Michele MD Attending Clinician + [phone] SUZETTE MICHELE Attending Clinician Unavailable Solange Ford MD Attending Clinician + Anatoly Valdovinos MD Attending Clinician + Visit, [facility] Attending Clinician Unava ilERIKA Clark Admitting Clinician Unavailable FABRIZIO TINSLEY Admitting Clinician Unavailable Anatoly Valdovinos MD Admitting Clinician + Payers Payer Name Policy Type Policy Number Effective Date Expirati on Date Source [facility] MOORE [id number] 2017 00:00:00 [employer] [id number] 2024 00:00:00 Problems Condition Name Condition Details Condition Category Status Onset Date Resolution Date Last Treatment Date Treating Clinician Comments Source (spontaneo us vaginal delivery) (spontaneo us vaginal delivery) Disease Active 8-06 00:00: 00 [facility] Single live Single live Disease Active 8-06 00:00: 00 [facility] Acute blood loss anemia Acute blood loss anemia Disease Active 8-06 00:00: 00 [facility] Obstetrica l laceration Obstetrica l laceration Disease Active 8-06 00:00: 00 [facility] 39 weeks gestation of 39 weeks gestation of Disease Recurre nce 0 8-03 00:00: 00 [facility] Encounter for induction of labor Encounter for induction of labor Disease Recurre nce 0 8-03 00:00: 00 [facility] Rh negative status during in third trimester Rh negative status during in third trimester Disease Active 8-03 00:00: 00 [facility] Need for varicella vaccine Need for varicella vaccine Disease Active 8-03 00:00: 00 [facility] Rh negative state in antepartum period Rh negative state in antepartum period Disease Active 2023-10 00:00: 00 [facility] Supervisio n of high-risk Supervisio n of high-risk Disease Active 2023-10 00:00: 00 [facility] Obesity in Obesity in Disease Active 2018-10 00:00: 00 [facility] BMI 39.0-39.9, adult BMI 39.0-39.9, adult Disease Active 2018-10 00:00: 00 [facility] Vomiting Vomiting Disease Resolve d 6-03 00:00: 00 2024-09-18 00:00:00 2024-09-18 15:46:24 [facility] Obesity (BMI 30-39.9) Obesity (BMI 30-39.9) Disease Resolve d 6-03 00:00: 00 2024-09-18 00:00:00 2024-09-18 15:46:29 [facility] Sexually active child Sexually active child Disease Resolve d 2018-10 0-08 00:00: 00 2024-09-18 00:00:00 2024-09-18 15:46:18 [facility] Depo-Prove ra contracept dash status Depo-Prove ra contracept dash status Disease Resolve d 1-10 00:00: 00 2024-09-18 00:00:00 2024-09-18 15:46:26 [facility] Screening examinatio n for STD (sexually transmitte d disease) Screening examinatio n for STD (sexually transmitte d disease) Disease Resolve d 2017-10 0-10 00:00: 00 2024-09-18 00:00:00 2024-09-18 15:46:23 [facility] Over weight Over weight Disease Resolve d 2017-10 0-10 00:00: 00 2024-09-18 00:00:00 2024-09-18 15:46:22 [facility] control control Disease Resolve d 9-26 00:00: 00 2024-09-18 00:00:00 2024-09-18 15:46:15 [facility] Allergies, Adverse Reactions, Alerts Allergy Name Allergy Type Status Severity Reaction(s) Onset Date Inactive Date Treating Clinician Comments Source NO KNOWN ALLERGIE S Drug Class Active [facility] Social History Social Habit Start Date Stop Date Quantity Comments Source ASSERTION 2024-08-20 00:00:00 [facility] History SDOH Alcohol Comment [facility] Gender identity [facility] SDOH Alcohol Std Drinks [facility] History SDOH Alcohol Binge [facility] Alcoholic beverage intake 2025-05-13 00:00:00 2025-05-13 00:00:00 0 /d [facility] Tobacco use and exposure 2024-10-16 00:00:00 2024-10-16 00:00:00 Smokeless tobacco non-user [facility] History of Social function 2024-09-18 00:00:00 2024-09-18 00:00:00 [facility] Exposure to SARS-CoV-2 (event) 2023-02-13 00:00:00 2023-02-23 17:41:00 Not sure [facility] Alcohol intake 2021-10-18 00:00:00 2021-10-18 00:00:00 0 /d [facility] Education 2021-03-11 00:00:00 2021-03-11 00:00:00 13 [facility] History SDOH Alcohol Frequency 2019-07-16 00:00:00 2019-07-16 00:00:00 1 [facility] Sex assigned at 2002 00:00:00 2000 00:00:00 [facility] Smoking Status Start Date Stop Date Source Never smoked tobacco [facility] Medications Ordered Medication Name Filled Medication Name Start Date Stop Date Current Medication? Ordering Clinician Indication Dosage Frequency Signature (SIG) Comments Components Source acetaminoph en (TYLENOL) tablet 650 mg 05-14 13:00: 00 05-14 04:47 :28 No 650mg 650 mg, Oral, TID, First dose (after last modificati on) on Mon05/14/25 at 0800, Until Discontinu ed, Routine Univers [facility] acetaminoph en (TYLENOL) tablet 650 mg acetaminoph en (TYLENOL) tablet 650 mg 05-14 05:00: 00 05-14 20:31 :23 Yes 650mg 650 mg, Oral, TID, First dose (after last modificati on) on Mon05/14/25 at 0000, Until Discontinu ed, Routine Univers [facility] no.103-iron fum-folic () 27 mg iron- 1 mg folic tablet 05-14 00:00: 00 Yes [id number] 1{tbl} Take 1 tablet by mouth in the morning. [facility] docusate 100 mg capsule docusate 100 mg capsule 05-14 00:00: 00 Yes [id number] 200mg Take 2 capsules by mouth once daily as needed for Constipati on. [facility] ferrous sulfate 325 mg (65 mg iron) tablet ferrous sulfate 325 mg (65 mg iron) tablet 05-14 00:00: 00 Yes [id number] 325mg Take 1 tablet by mouth in the morning. [facility] ibuprofen 800 mg tablet ibuprofen 800 mg tablet 05-14 00:00: 00 Yes [id number] 800mg Take 1 tablet by mouth every 8 hours as needed (pain). Take with food or milk. [facility] ibuprofen (IBU) tablet 600 mg ibuprofen (IBU) tablet 600 mg 05-13 23:30: 00 05-14 20:31 :23 Yes 600mg 600 mg, Oral, Q8HPRN, Starting on Mon05/13/25 at 1830, Until Mon05/14/25 at 1531, Routine, Pain (scale 4-6) [facility] hydrOXYzine (ATARAX) tablet 50 mg hydrOXYzine (ATARAX) tablet 50 mg 05-13 23:25: 42 05-14 20:31 :23 Yes 50mg 50 mg, Oral, QHSPRN, Starting on Mon05/13/25 at 1825, Until Mon05/14/25 at 1531, Routine, Anxiety [facility] ketorolac (TORADOL) injection 30 mg ketorolac (TORADOL) injection 30 mg 05-13 23:22: 00 05-13 23:27 :00 Yes 30mg 30 mg, Slow IV Push, ONCE, 1 dose, On Mon05/13/25 at 1830, LEOLA [facility] acetaminoph en (TYLENOL) tablet 1,000 mg acetaminoph en (TYLENOL) tablet 1,000 mg 05-13 22:00: 00 05-13 21:27 :00 Yes 1000mg 1,000 mg, Oral, ONCE, 1 dose, On Mon05/13/25 at 1700, Routine [facility] lidocaine (XYLOCAINE) 2 % jelly URO-JET 10 mL lidocaine (XYLOCAINE) 2 % jelly URO-JET 10 mL 05-13 22:00: 00 05-13 23:37 :00 Yes 10mL 10 mL, Urethral, ONCE, 1 dose, On Mon05/13/25 at 1700, Routine [facility] ibuprofen (IBU) tablet 600 mg ibuprofen (IBU) tablet 600 mg 05-13 18:00: 00 05-13 23:25 :12 Yes 600mg 600 mg, Oral, TID, First dose on Mon05/13/25 at 1300, Until Discontinu ed, Routine [facility] rho(D) immune globulin (RHOPHYLAC) injection 300 mcg 05-13 15:38: 57 05-14 20:31 :[address] [facility] diphenhydrA MINE (BENADRYL) tablet 25 mg diphenhydrA MINE (BENADRYL) tablet 25 mg 05-13 15:38: 53 05-14 20:31 :23 Yes 25mg 25 mg, Oral, Q6HPRN, Starting on Mon05/13/25 at 1038, Until Mon05/14/25 at 1531, Routine, Sleep, Itching [facility] ondansetron (ZOFRAN (PF)) injection 4 mg 05-13 15:38: 53 05-14 20:31 :23 No 4mg [facility] simethicone (GAS RELIEF (SIMETHICON E)) chewable tablet 160 mg 05-13 15:38: 53 05-14 20:31 :23 No 160mg 160 mg, Oral, PC+HSPRN, Starting on Mon05/13/25 at 1038, Until Mon05/14/25 at 1531, Routine, Gas [facility] docusate (COLACE) capsule 200 mg docusate (COLACE) capsule 200 mg 05-13 15:38: 53 05-14 20:31 :23 Yes 200mg 200 mg, Oral, QDAILYPRN, Starting on Mon05/13/25 at 1038, Until Mon05/14/25 at 1531, Routine, Constipati on [facility] magnesium hydroxide (MILK OF MAGNESIA) 400 mg/5 mL suspension 30 mL 05-13 15:38: 53 05-14 20:31 :[address] [facility] benzocaine- menthol (DERMOPLAST ) 20-0.5 % topical spray benzocaine- menthol (DERMOPLAST ) 20-0.5 % topical spray 05-13 15:38: 53 05-14 20:31 :23 Yes Topical, PRN, Starting on Mon05/13/25 at 1038, Until Mon05/14/25 at 1531, Routine, Perineum discomfort [facility] miSOPROStoL (CYTOTEC) tablet 1,000 mcg 05-13 15:15: 00 05-13 14:31 :00 No 1000ug 1,000 mcg, Rectal, ONCE, 1 dose, On Mon05/13/25 at 1015, Routine [facility] methylergon ovine (METHERGINE ) injection 0.2 mg 05-13 14:30: 00 05-13 13:06 :00 No .2mg 0.2 mg, Intramuscu lar, Once, 1 dose, On Mon05/13/25 at 0930, Routine [facility] bupivacaine 0.125% epidural infusion 250 mL 05-13 11:49: 00 05-13 19:42 :59 No Epidural, CONTINUOUS PRN, Starting on Mon05/13/25 at 0649, Until Mon05/13/25 at 1442, 250 mL, Intra-op [facility] FENTanyl (PF) (SUBLIMAZE) injection 05-13 11:45: 00 05-13 19:42 :59 No Epidural, ONCE INTRA PROCEDURE, Starting on Mon05/13/25 at 0645, Until Mon05/13/25 at 1442, Routine, Intra-op [facility] PIB FENTanyl 2 mcg/mL + bupivacaine 0.1% in NS 250 mL epidural bag 05-13 09:34: 00 05-13 19:42 :59 No Intra-op [facility] ondansetron (ZOFRAN (PF)) injection 4 mg ondansetron (ZOFRAN (PF)) injection 4 mg 05-13 09:00: 00 05-13 08:22 :00 Yes 4mg 4 mg, Slow IV Push, ONCE, On Mon05/13/25 at 0400, For 1 dose, Please give medication over 2-5 minutes. [facility] ropivacaine 0.2 % (NAROPIN (PF)) epidural infusion 05-13 00:05: 00 05-13 19:42 :59 No Epidural, CONTINUOUS PRN, Starting on Mon05/12/25 at 1905, Until Mon05/13/25 at 1442, Routine, Intra-op [facility] lidocaine-e pinephrine (XYLOCAINE W/EPINEPHRI NE) 1.5 %-1:200,000 injection 05-13 00:04: 00 05-13 19:42 :59 No Epidural, ONCE INTRA PROCEDURE, Starting on Mon05/12/25 at 1904, Until Mon05/13/25 at 1442, Routine, Intra-op [facility] lactated ringers IV infusion 500 mL 05-12 23:45: 00 05-13 00:10 :07 No 500mL at 999 mL/hr, 500 mL, IV Infusion, ONCE, 1 dose, On Mon05/12/25 at 1845, Routine [facility] hydrOXYzine (ATARAX) tablet 10 mg hydrOXYzine (ATARAX) tablet 10 mg 05-12 23:45: 00 05-12 23:38 :00 Yes 10mg 10 mg, Oral, ONCE, 1 dose, On Mon05/12/25 at 1845, Routine [facility] sodium citrate-cit chintan acid (BICITRA) 500-334 mg/5 mL solution 30 mL sodium citrate-cit chintan acid (BICITRA) 500-334 mg/5 mL solution 30 mL 05-12 22:50: 09 05-12 23:52 :00 Yes 30mL 30 mL, Oral, PRE-PROCED URE ONCE, 1 dose, Starting on Mon05/12/25 at 1750, Until Mon05/12/25 at 1852, Routine, Surgery/Pr ocedure [facility] morpHINE (4 mg/mL) injection 4 mg morpHINE (4 mg/mL) injection 4 mg 05-12 21:45: 00 05-12 20:57 :00 Yes 4mg 4 mg, Slow IV Push, ONCE, 1 dose, On Mon05/12/25 at 1645, Routine [facility] Oxytocin in Normal Saline 30 unit/500 [...] 150 mL/hr for 1 hr. [facility] morpHINE (4 mg/mL) injection 4 mg morpHINE (4 mg/mL) injection 4 mg 2024-0 05-12 15:00: 00 05-12 15:40 :00 Yes 4mg 4 mg, Slow IV Push, ONCE, 1 dose, On Mon05/12/25 at 1000, Routine [facility] miSOPROStol (CYTOTEC) quarter-tab let 50 mcg miSOPROStol (CYTOTEC) quarter-tab let 50 mcg 2024-05-12 13:15: 00 05-12 12:40 :00 Yes 50ug 50 mcg, Oral, ONCE, 1 dose, On Mon05/12/25 at 0815, Routine [facility] morpHINE (4 mg/mL) injection 4 mg morpHINE (4 mg/mL) injection 4 mg 05-12 11:45: 00 05-12 10:57 :00 Yes 4mg 4 mg, Slow IV Push, ONCE, 1 dose, On Mon05/12/25 at 0645, Routine [facility] morpHINE (4 mg/mL) injection 4 mg morpHINE (4 mg/mL) injection 4 mg 2024-05-12 06:45: 00 05-12 05:55 :00 Yes 4mg 4 mg, Slow IV Push, ONCE, 1 dose, On Mon05/12/25 at 0145, Routine [facility] miSOPROStol (CYTOTEC) quarter-tab let 50 mcg miSOPROStol (CYTOTEC) quarter-tab let 50 mcg 5-0 05-12 04:45: 00 05-12 04:05 :00 Yes 50ug 50 mcg, Oral, ONCE, 1 dose, On Mon05/11/25 at 2345, Routine [facility] morpHINE (4 mg/mL) injection 4 mg morpHINE (4 mg/mL) injection 4 mg 2024-0 05-12 02:30: 00 05-12 01:54 :00 Yes 4mg 4 mg, Slow IV Push, ONCE, 1 dose, On 05/11/25 at 2130, Routine [facility] D5W-LR IV infusion 1,000 mL 05-12 00:23: 33 05-13 15:38 :56 No 1000mL at 1-75 mL/hr, IV Infusion, TITRATE, Starting on Mon05/11/25 at 1923, Until Mon05/13/25 at 1038, Routine [facility] rho(D) immune globulin (HYPERRHO/R HOGAM) syringe 300 mcg 02-27 15:15: 00 02-27 15:18 :21 No [id number] 300ug [facility] clindamycin 300 mg capsule 10-30 00:00: 00 11-07 05:59 :00 No [id number] 300mg Take 1 capsule by mouth in the morning and 1 capsule in the evening. Do all this for [address] [facility] metroNIDAZO LE 500 mg tablet 10-28 00:00: 00 10-30 00:00 :00 No [id number] 500mg Take 1 tablet by mouth every 12 (twelve) hours for [address] [facility] cyclobenzap rine 5 mg tablet 10-14 00:00: 00 05-14 00:00 :00 No [id number] 5mg Take 1 tablet by mouth in the morning and 1 tablet at noon and 1 tablet in the evening. [facility] PNV 67-iron ps-folate no.1-dha (VITAFOL ULTRA) 29 mg iron- 1 mg-200 mg Cap 2023-10- 00:00: 00 05-14 00:00 :00 No [id number] 1{each} Take 1 Each by mouth in the morning. [facility] proMETHazin e 25 mg tablet 2023-10- 00:00: 00 05-14 00:00 :00 No [id number] 25mg Take 1 tablet by mouth every 6 (six) hours as needed for Nausea and Vomiting (N/V). [facility] maalox:diph enhydrAMINE :lidocaine 2 % viscous 1:1:1 ([facility] oral suspension 15 mL 05-23 21:00: 00 05-23 22:18 :00 No 15mL 15 mL, Oral, ONCE, 1 dose, On Mon05/23/23 at 1600, Routine [facility] pantoprazol e (PROTONIX) injection 40 mg 05-23 21:00: 00 05-23 22:17 :00 No 40mg 40 mg, Slow IV Push, ONCE, 1 dose, On Mon05/23/[address] [facility] ondansetron (ZOFRAN (PF)) injection 4 mg 05-23 21:00: 00 05-23 22:17 :00 No 4mg 4 mg, Slow IV Push, ONCE, 1 dose, On Mon05/23/23 at 1600, LEOLA [facility] ondansetron 4 mg disintegrat ing tablet 05-23 00:00: 00 09-18 00:00 :00 No [id number] 4mg Take 1 tablet by mouth every 8 (eight) hours as needed for Nausea and Vomiting (N/V). [facility] famotidine (PEPCID) 20 mg tablet 05-23 00:00: 00 06-23 04:59 :00 No [id number] 20mg Take 1 tablet by mouth in the morning and 1 tablet in the evening. Do all this for [address] [facility] predniSONE (DELTASONE) tablet 10 mg 02-24 00:30: 00 02-24 00:39 :00 No 10mg 10 mg, Oral, ONCE, 1 dose, On Elizabeth 02/23/23 at 1930, LEOLA [facility] amoxicillin -clavulanat e (AUGMENTIN) 875-125 mg per tablet 1 tablet 02-24 00:28: 00 02-24 00:38 :00 No 1{tbl} 1 tablet, Oral, ONCE, 1 dose, On Mon02/23/23 at 1930, LEOLA
Re ason for Anti-Infec tive: Documented Infection< br>Documen candido Infection Site: HEENT
D uration of Therapy: Other (see Comments) [facility] ketorolac (TORADOL) injection 30 mg 02-23 23:09: 00 02-23 23:23 :00 No 30mg 30 mg, Intramuscu lar, ONCE, 1 dose, On Elizabeth 02/23/23 at 1815, LEOLA [facility] amoxicillin -clavulanat e 875-125 mg per tablet 02-23 00:00: 00 09-18 00:00 :00 No [id number] 1{tbl} Take 1 tablet by mouth every 12 (twelve) hours. [facility] predniSONE 10 mg tablet 02-23 00:00: 00 02-27 04:59 :00 No [id number] 30mg Take 3 tablets by mouth in the morning for [address] [facility] ibuprofen (IBU) tablet 600 mg 10-19 05:45: 00 10-19 04:40 :00 No 600mg 600 mg, Oral, ONCE, 1 dose, On 10/18/21 at 2345, LEOLA [facility] HYDROcodone -acetaminop hen (NORCO) 10-325 mg tablet 1 tablet 05-22 13:15: 00 05-22 12:30 :00 No 1{tbl} 1 tablet, Oral, ONCE, 1 dose, 05/22/21 at 0815, Routine [facility] ibuprofen 800 mg tablet 05-22 00:00: 00 02-23 00:00 :00 No [id number] 800mg Take 1 tablet by mouth every 8 (eight) hours as needed for Pain (scale 4-6) or Temp > 38.[address] [facility] cefTRIAXone (ROCEPHIN) 1,000 mg in NaCl 0.9% (NS) 50 mL MINI-BAG 03-12 16:00: 00 03-12 16:18 :00 No 1000mg 1,000 mg, IV Piggyback, ONCE, 1 dose, Mon03/12/21 at 1100, 50 mL
Reas on for Anti-Infec tive: Empiric Therapy for Suspected Infection< br>Empiric Therapy Site: Urine
D uration of therapy: 72 hours [facility] (KLOR-CON M20) tablet 40 mEq 03-12 12:45: 00 03-12 13:07 :00 No 40meq 40 mEq, Oral, ONCE, 1 dose, Mon03/12/21 at 0745, Routine [facility] morpHINE injection 4 mg 03-12 07:16: 17 Yes 4mg 4 mg, Slow IV Push, Q4HPRN, Starting Mon03/12/21 at 0216, Until Discontinu ed, Routine, Pain (scale 7-10) [facility] pantoprazol e (PROTONIX) 40 mg in NaCl 0.9% (NS) 100 mL MINI-BAG 03-12 00:15: 00 Yes 40mg 40 mg, IV Piggyback, Q24H, First dose on Mon03/11/21 at 1915, Until Discontinu ed, [address] [facility] ondansetron 4 mg tablet 03-12 00:00: 00 03-23 04:59 :00 No [id number] 4mg Take 1 tablet by mouth every 8 (eight) hours for [address] [facility] cephALEXin 500 mg capsule 03-12 00:00: 00 03-16 04:59 :00 No [id number] 500mg Take 1 capsule by mouth 2 (two) times daily for [address] [facility] enoxaparin (LOVENOX) injection 30 mg 03-11 22:00: 00 Yes 30mg 30 mg, Subcutaneo us, DAILY, First dose on Mon03/11/21 at 1700, Until Discontinu ed, Routine [facility] D5W-LR IV infusion 1,000 mL 03-11 21:45: 00 Yes 1000mL at 125 mL/hr, IV Infusion, CONTINUOUS , Starting Mon03/11/21 at 1645, Until Discontinu ed, Routine [facility] morpHINE injection 4 mg 03-11 21:15: 00 03-11 20:32 :00 No 4mg 4 mg, Slow IV Push, ONCE, 1 dose, Elizabeth 03/11/21 at 1615, STAT [facility] ondansetron (ZOFRAN (PF)) injection 4 mg 03-11 20:38: 54 Yes 4mg 4 mg, Slow IV Push, Q6HPRN, Starting Elizabeth 03/11/21 at 1538, Until Discontinu ed, Routine, Nausea and Vomiting (N/V) [facility] acetaminoph en-codeine (TYLENOL #3) 300-30 mg tablet 1 tablet 03-11 20:38: 49 03-13 20:37 :49 No 1{tbl} 1 tablet, Oral, Q6HPRN, Starting Elizabeth 03/11/21 at 1538, Until 03/13/21 at 1537, Routine, Pain (scale 4-6) [facility] acetaminoph en (TYLENOL) tablet 650 mg 03-11 20:38: 42 Yes 650mg 650 mg, Oral, Q6HPRN, Starting Elizabeth 03/11/21 at 1538, Until Discontinu ed, Routine, Pain (scale 1-3) [facility] cefTRIAXone (ROCEPHIN) 1,000 mg in NaCl 0.9% (NS) 50 mL MINI-BAG 03-11 18:00: 00 03-11 17:41 :00 No 1000mg 1,000 mg, IV Piggyback, ONCE, 1 dose, Elizabeth 03/11/21 at 1300, 50 mL
Reas on for Anti-Infec tive: Empiric Therapy for Suspected Infection< br>Empiric Therapy Site: Abdominal< br>Duratio n of therapy: [address] [facility] iopamidol (ISOVUE 370-500 mL) injection 120 mL 03-11 17:00: 00 03-11 17:00 :00 No [id number] 120mL 120 mL, Intravenou s, ONCE, 1 dose, Elizabeth 03/11/21 at 1200, Routine [facility] morpHINE injection 4 mg 03-11 16:45: 00 03-11 15:43 :00 No 4mg 4 mg, Slow IV Push, ONCE, 1 dose, Elizabeth 03/11/21 at 1145, STAT [facility] ondansetron (ZOFRAN (PF)) injection 4 mg 03-11 16:30: 00 03-11 15:41 :00 No 4mg 4 mg, Slow IV Push, ONCE, 1 dose, [place] 03/11/21 at 1130[facility] NaCl 0.9% (NS) bolus infusion 1,000 mL 03-11 16:30: 00 03-11 19:19 :00 No 1000mL at 999 mL/hr, 1,000 mL, IV Infusion, ONCE, 1 dose, Elizabeth 03/11/21 at 1130, STAT [facility] sodium chloride (NS) injection 5 mL 03-11 14:57: 42 Yes 5mL 5 mL, Intravenou s, PRN, Starting Elizabeth 03/11/21 at 0957, Until Discontinu ed, Routine, IV line flushing [facility] codeine-gua ifenesin (ROBITUSSIN AC) 10-100 mg/5 mL solution 10 mL 03-06 05:00: 00 03-06 04:26 :00 No 10mL 10 mL, Oral, ONCE, 1 dose, [facility]06[facility]21 [facility] 0000[facility] (DECADRON PHOSPHATE) injection 10 mg 03-06 05:00: 00 03-06 04:19 :00 No 10mg 10 mg, Intramuscu lar, ONCE, 1 dose, 03/06/21 at 0000, STAT [facility] methylPREDN ISolone (MEDROL, TILA,) 4 mg tablets 03-06 00:00: 00 Yes [id number] Take by mouth SEE-INSTRU CTIONS. follow package directions [facility] azithromyci n 250 mg tablet 03-06 00:00: 00 Yes [id number] 250mg Take 1 tablet by mouth daily. Take 500 mg day 1, then 250 mg days [address] [facility] albuterol 90 mcg/actuati on inhaler 03-06 00:00: 00 05-22 00:00 :00 No [id number] 2{puff} Inhale 2 Puffs every 4 (four) hours as needed for Wheezing or Shortness of Breath. [facility] codeine-gua ifenesin 10-100 mg/5 mL solution 03-06 00:00: 00 03-14 04:59 :00 No [id number] 10mL Take 10 mL by mouth every 6 (six) hours as needed for Cough for up to 7 days. Indication s: acute pain [facility] benzonatate 100 mg capsule 02-24 00:00: 00 03-12 00:00 :00 No [id number] 100mg Take 1 capsule by mouth 3 (three) times daily as needed for Cough. [facility] predniSONE 20 mg tablet 02-24 00:00: 00 03-01 04:59 :00 No [id number] 20mg Take 1 tablet by mouth 2 (two) times daily for [address] [facility] medroxyPROG ESTERone (DEPO-PROVE RA) injection 150 mg 2018-10 15:00: 00 06-30 14:59 :00 No [id number] 150mg [facility] traMADOL (ULTRAM) 50 mg tablet 16 00:00: 00 03-12 00:00 :00 No 50mg Take 1 tablet by mouth every 6 (six) hours as needed for Pain (scale 4-6). [facility] Immunizations Ordered Immunization Name Filled Immunization Name Date Status Comments Source MMR 2025-05-14 00:00:00 Completed [facility] Varicella (varivax)(chicken pox) 2025-05-14 00:00:00 Completed TDAP 2025-02-27 00:00:00 Completed Flu Injectable MDCK Pres-Free (FLUCELVAX) 2024-09-18 00:00:00 Completed [facility] TDAP (ADACEL) VACCINE 2021-10-19 00:00:00 Completed [facility] Meningococcal Polysaccharide (groups A, C, Y and W-135) conjugate vaccine (MCV4P) 2021-10-19 00:00:00 Completed [facility] HPV9 2021-10-19 00:00:00 Completed [facility] DTAP 2021-10-19 00:00:00 Completed [facility] HIB 3 Dose Schedule 2021-10-19 00:00:00 Completed [facility] HEPATITIS A 2021-10-19 00:00:00 Completed [facility] Hep B, Adol or Pedi Dosage 2021-10-19 00:00:00 Completed [facility] HPV 2021-10-19 00:00:00 Completed [facility] MMR 2021-10-19 00:00:00 Completed [facility] Pneumococcal 13 Conjugate, PCV13 (Prevnar 13) 2021-10-19 00:00:00 Completed [facility] Polio (IPV/OPV) 2021-10-19 00:00:00 Completed [facility] Proquad (MMR/VARICELLA) 2021-10-19 00:00:00 Completed [facility] Varicella (varivax)(chicken pox) 2021-10-19 00:00:00 Completed [facility] TDAP (ADACEL) VACCINE 2021-10-19 00:00:00 Completed [facility] Meningococcal Polysaccharide (groups A, C, Y and W-135) conjugate vaccine (MCV4P) 2021-10-19 00:00:00 Completed [facility] HPV9 2021-10-19 00:00:00 Completed [facility] DTAP 2021-10-19 00:00:00 Completed [facility] HIB 3 Dose Schedule 2021-10-19 00:00:00 Completed [facility] HEPATITIS A 2021-10-19 00:00:00 Completed [facility] Hep B, Adol or Pedi Dosage 2021-10-19 00:00:00 Completed [facility] HPV 2021-10-19 00:00:00 Completed [facility] MMR 2021-10-19 00:00:00 Completed [facility] Pneumococcal 13 Conjugate, PCV13 (Prevnar 13) 2021-10-19 00:00:00 Completed [facility] Polio (IPV/OPV) 2021-10-19 00:00:00 Completed [facility] Proquad (MMR/VARICELLA) 2021-10-19 00:00:00 Completed [facility] Varicella (varivax)(chicken pox) 2021-10-19 00:00:00 Completed [facility] HPV 2018-10-18 00:00:00 Completed [facility] HPV9 2018-10-18 00:00:00 Completed [facility] HPV 2018-10-18 00:00:00 Completed [facility] HPV9 2018-10-18 00:00:00 Completed [facility] HPV 2018-10-18 00:00:00 Completed [facility] HPV9 2018-10-18 00:00:00 Completed [facility] HPV 2018-10-18 00:00:00 Completed [facility] HPV9 2018-10-18 00:00:00 Completed [facility] HPV 2018-10-18 00:00:00 Completed [facility] HPV9 2018-10-18 00:00:00 Completed [facility] HPV 2018-10-18 00:00:00 Completed [facility] HPV9 2018-10-18 00:00:00 Completed [facility] HPV 2018-10-18 00:00:00 Completed [facility] HPV9 2018-10-18 00:00:00 Completed [facility] HPV 2018-10-18 00:00:00 Completed [facility] HPV9 2018-10-18 00:00:00 Completed [facility] HPV 2018-10-18 00:00:00 Completed [facility] HPV9 2018-10-18 00:00:00 Completed [facility] HPV 2018-10-18 00:00:00 Completed [facility] HPV9 2018-10-18 00:00:00 Completed [facility] HPV 2018-10-18 00:00:00 Completed HPV9 2018-10-18 00:00:00 Completed [facility] HPV 2018-07-18 00:00:00 Completed [facility] HPV9 2018-07-18 00:00:00 Completed [facility] HPV 2018-07-18 00:00:00 Completed [facility] HPV9 2018-07-18 00:00:00 Completed [facility] HPV 2018-07-18 00:00:00 Completed [facility] HPV9 2018-07-18 00:00:00 Completed [facility] HPV 2018-07-18 00:00:00 Completed [facility] HPV9 2018-07-18 00:00:00 Completed [facility] HPV 2018-07-18 00:00:00 Completed [facility] HPV9 2018-07-18 00:00:00 Completed [facility] HPV 2018-07-18 00:00:00 Completed [facility] HPV9 2018-07-18 00:00:00 Completed [facility] HPV 2018-07-18 00:00:00 Completed [facility] HPV9 2018-07-18 00:00:00 Completed [facility] HPV 2018-07-18 00:00:00 Completed [facility] HPV9 2018-07-18 00:00:00 Completed [facility] HPV 2018-07-18 00:00:00 Completed [facility] HPV9 2018-07-18 00:00:00 Completed [facility] HPV 2018-07-18 00:00:00 Completed [facility] HPV9 2018-07-18 00:00:00 Completed [facility] HPV 2018-07-18 00:00:00 Completed HPV9 2018-07-18 00:00:00 Completed [facility] Influenza, seasonal, inj Influenza, seasonal, inj 2017-11-21 00:00:00 Completed [facility] HPV 2015-05-22 00:00:00 Completed [facility] TDAP (ADACEL) VACCINE 2015-05-22 00:00:00 Completed [facility] HPV9 2015-05-22 00:00:00 Completed [facility] Meningococcal Polysaccharide (groups A, C, Y and W-135) conjugate vaccine (MCV4P) 2015-05-22 00:00:00 Completed [facility] HPV 2015-05-22 00:00:00 Completed [facility] TDAP (ADACEL) VACCINE 2015-05-22 00:00:00 Completed [facility] HPV9 2015-05-22 00:00:00 Completed [facility] Meningococcal Polysaccharide (groups A, C, Y and W-135) conjugate vaccine (MCV4P) 2015-05-22 00:00:00 Completed [facility] HPV 2015-05-22 00:00:00 Completed [facility] TDAP (ADACEL) VACCINE 2015-05-22 00:00:00 Completed [facility] HPV9 2015-05-22 00:00:00 Completed [facility] Meningococcal Polysaccharide (groups A, C, Y and W-135) conjugate vaccine (MCV4P) 2015-05-22 00:00:00 Completed [facility] HPV 2015-05-22 00:00:00 Completed [facility] TDAP (ADACEL) VACCINE 2015-05-22 00:00:00 Completed [facility] HPV9 2015-05-22 00:00:00 Completed [facility] Meningococcal Polysaccharide (groups A, C, Y and W-135) conjugate vaccine (MCV4P) 2015-05-22 00:00:00 Completed [facility] HPV 2015-05-22 00:00:00 Completed [facility] TDAP (ADACEL) VACCINE 2015-05-22 00:00:00 Completed [facility] HPV9 2015-05-22 00:00:00 Completed [facility] Meningococcal Polysaccharide (groups A, C, Y and W-135) conjugate vaccine (MCV4P) 2015-05-22 00:00:00 Completed [facility] HPV 2015-05-22 00:00:00 Completed [facility] TDAP (ADACEL) VACCINE 2015-05-22 00:00:00 Completed [facility] HPV9 2015-05-22 00:00:00 Completed [facility] Meningococcal Polysaccharide (groups A, C, Y and W-135) conjugate vaccine (MCV4P) 2015-05-22 00:00:00 Completed [facility] HPV 2015-05-22 00:00:00 Completed [facility] TDAP (ADACEL) VACCINE 2015-05-22 00:00:00 Completed [facility] HPV9 2015-05-22 00:00:00 Completed [facility] Meningococcal Polysaccharide (groups A, C, Y and W-135) conjugate vaccine (MCV4P) 2015-05-22 00:00:00 Completed [facility] HPV 2015-05-22 00:00:00 Completed [facility] TDAP (ADACEL) VACCINE 2015-05-22 00:00:00 Completed [facility] HPV9 2015-05-22 00:00:00 Completed [facility] Meningococcal Polysaccharide (groups A, C, Y and W-135) conjugate vaccine (MCV4P) 2015-05-22 00:00:00 Completed [facility] HPV 2015-05-22 00:00:00 Completed [facility] TDAP (ADACEL) VACCINE 2015-05-22 00:00:00 Completed [facility] HPV9 2015-05-22 00:00:00 Completed [facility] Meningococcal Polysaccharide (groups A, C, Y and W-135) conjugate vaccine (MCV4P) 2015-05-22 00:00:00 Completed [facility] HPV 2015-05-22 00:00:00 Completed [facility] TDAP (ADACEL) VACCINE 2015-05-22 00:00:00 Completed [facility] HPV9 2015-05-22 00:00:00 Completed Meningococcal Polysaccharide (groups A, C, Y and W-135) conjugate vaccine (MCV4P) 2015-05-22 00:00:00 Completed HPV 2015-05-22 00:00:00 Completed TDAP (ADACEL) VACCINE 2015-05-22 00:00:00 Completed [facility] HPV9 2015-05-22 00:00:00 Completed [facility] Meningococcal Polysaccharide (groups A, C, Y and W-135) conjugate vaccine (MCV4P) 2015-05-22 00:00:00 Completed [facility] DTAP 2007-05-08 00:00:00 Completed [facility] HEPATITIS A 2007-05-08 00:00:00 Completed [facility] Polio (IPV/OPV) 2007-05-08 00:00:00 Completed [facility] Proquad (MMR/VARICELLA) 2007-05-08 00:00:00 Completed [facility] DTAP 2007-05-08 00:00:00 Completed [facility] HEPATITIS A 2007-05-08 00:00:00 Completed [facility] Polio (IPV/OPV) 2007-05-08 00:00:00 Completed [facility] Proquad (MMR/VARICELLA) 2007-05-08 00:00:00 Completed [facility] DTAP 2007-05-08 00:00:00 Completed [facility] HEPATITIS A 2007-05-08 00:00:00 Completed [facility] Polio (IPV/OPV) 2007-05-08 00:00:00 Completed [facility] Proquad (MMR/VARICELLA) 2007-05-08 00:00:00 Completed [facility] DTAP 2007-05-08 00:00:00 Completed [facility] HEPATITIS A 2007-05-08 00:00:00 Completed [facility] Polio (IPV/OPV) 2007-05-08 00:00:00 Completed [facility] Proquad (MMR/VARICELLA) 2007-05-08 00:00:00 Completed [facility] DTAP 2007-05-08 00:00:00 Completed [facility] HEPATITIS A 2007-05-08 00:00:00 Completed [facility] Polio (IPV/OPV) 2007-05-08 00:00:00 Completed [facility] Proquad (MMR/VARICELLA) 2007-05-08 00:00:00 Completed [facility] DTAP 2007-05-08 00:00:00 Completed [facility] HEPATITIS A 2007-05-08 00:00:00 Completed [facility] Polio (IPV/OPV) 2007-05-08 00:00:00 Completed [facility] Proquad (MMR/VARICELLA) 2007-05-08 00:00:00 Completed [facility] DTAP 2007-05-08 00:00:00 Completed [facility] HEPATITIS A 2007-05-08 00:00:00 Completed [facility] Polio (IPV/OPV) 2007-05-08 00:00:00 Completed [facility] Proquad (MMR/VARICELLA) 2007-05-08 00:00:00 Completed [facility] DTAP 2007-05-08 00:00:00 Completed [facility] HEPATITIS A 2007-05-08 00:00:00 Completed [facility] Polio (IPV/OPV) 2007-05-08 00:00:00 Completed [facility] Proquad (MMR/VARICELLA) 2007-05-08 00:00:00 Completed [facility] DTAP 2007-05-08 00:00:00 Completed [facility] HEPATITIS A 2007-05-08 00:00:00 Completed [facility] Polio (IPV/OPV) 2007-05-08 00:00:00 Completed [facility] Proquad (MMR/VARICELLA) 2007-05-08 00:00:00 Completed [facility] DTAP 2007-05-08 00:00:00 Completed [facility] HEPATITIS A 2007-05-08 00:00:00 Completed [facility] Polio (IPV/OPV) 2007-05-08 00:00:00 Completed [facility] Proquad (MMR/VARICELLA) 2007-05-08 00:00:00 Completed [facility] DTAP 2007-05-08 00:00:00 Completed HEPATITIS A 2007-05-08 00:00:00 Completed Polio (IPV/OPV) 2007-05-08 00:00:00 Completed Proquad (MMR/VARICELLA) 2007-05-08 00:00:00 Completed DTAP 2006-02-09 00:00:00 Completed [facility] HEPATITIS A 2006-02-09 00:00:00 Completed [facility] Pneumococcal 13 Conjugate, PCV13 (Prevnar 13) 2006-02-09 00:00:00 Completed [facility] DTAP 2006-02-09 00:00:00 Completed [facility] HEPATITIS A 2006-02-09 00:00:00 Completed [facility] Pneumococcal 13 Conjugate, PCV13 (Prevnar 13) 2006-02-09 00:00:00 Completed [facility] DTAP 2006-02-09 00:00:00 Completed [facility] HEPATITIS A 2006-02-09 00:00:00 Completed [facility] Pneumococcal 13 Conjugate, PCV13 (Prevnar 13) 2006-02-09 00:00:00 Completed [facility] DTAP 2006-02-09 00:00:00 Completed [facility] HEPATITIS A 2006-02-09 00:00:00 Completed [facility] Pneumococcal 13 Conjugate, PCV13 (Prevnar 13) 2006-02-09 00:00:00 Completed [facility] DTAP 2006-02-09 00:00:00 Completed [facility] HEPATITIS A 2006-02-09 00:00:00 Completed [facility] Pneumococcal 13 Conjugate, PCV13 (Prevnar 13) 2006-02-09 00:00:00 Completed [facility] DTAP 2006-02-09 00:00:00 Completed [facility] HEPATITIS A 2006-02-09 00:00:00 Completed [facility] Pneumococcal 13 Conjugate, PCV13 (Prevnar 13) 2006-02-09 00:00:00 Completed [facility] DTAP 2006-02-09 00:00:00 Completed [facility] HEPATITIS A 2006-02-09 00:00:00 Completed [facility] Pneumococcal 13 Conjugate, PCV13 (Prevnar 13) 2006-02-09 00:00:00 Completed [facility] DTAP 2006-02-09 00:00:00 Completed [facility] HEPATITIS A 2006-02-09 00:00:00 Completed [facility] Pneumococcal 13 Conjugate, PCV13 (Prevnar 13) 2006-02-09 00:00:00 Completed [facility] DTAP 2006-02-09 00:00:00 Completed [facility] HEPATITIS A 2006-02-09 00:00:00 Completed [facility] Pneumococcal 13 Conjugate, PCV13 (Prevnar 13) 2006-02-09 00:00:00 Completed [facility] DTAP 2006-02-09 00:00:00 Completed [facility] HEPATITIS A 2006-02-09 00:00:00 Completed [facility] Pneumococcal 13 Conjugate, PCV13 (Prevnar 13) 2006-02-09 00:00:00 Completed [facility] DTAP 2006-02-09 00:00:00 Completed HEPATITIS A 2006-02-09 00:00:00 Completed Pneumococcal 13 Conjugate, PCV13 (Prevnar 13) 2006-02-09 00:00:00 Completed DTAP 2005-03-14 00:00:00 Completed [facility] Hep B, Adol or Pedi Dosage 2005-03-14 00:00:00 Completed [facility] DTAP 2005-03-14 00:00:00 Completed [facility] Hep B, Adol or Pedi Dosage 2005-03-14 00:00:00 Completed [facility] DTAP 2005-03-14 00:00:00 Completed [facility] Hep B, Adol or Pedi Dosage 2005-03-14 00:00:00 Completed [facility] DTAP 2005-03-14 00:00:00 Completed [facility] Hep B, Adol or Pedi Dosage 2005-03-14 00:00:00 Completed [facility] DTAP 2005-03-14 00:00:00 Completed [facility] Hep B, Adol or Pedi Dosage 2005-03-14 00:00:00 Completed [facility] DTAP 2005-03-14 00:00:00 Completed [facility] Hep B, Adol or Pedi Dosage 2005-03-14 00:00:00 Completed [facility] DTAP 2005-03-14 00:00:00 Completed [facility] Hep B, Adol or Pedi Dosage 2005-03-14 00:00:00 Completed [facility] DTAP 2005-03-14 00:00:00 Completed [facility] Hep B, Adol or Pedi Dosage 2005-03-14 00:00:00 Completed [facility] DTAP 2005-03-14 00:00:00 Completed [facility] Hep B, Adol or Pedi Dosage 2005-03-14 00:00:00 Completed [facility] DTAP 2005-03-14 00:00:00 Completed [facility] Hep B, Adol or Pedi Dosage 2005-03-14 00:00:00 Completed [facility] DTAP 2005-03-14 00:00:00 Completed Hep B, Adol or Pedi Dosage 2005-03-14 00:00:00 Completed DTAP 2004-08-04 00:00:00 Completed [facility] HIB 3 Dose Schedule 2004-08-04 00:00:00 Completed [facility] Polio (IPV/OPV) 2004-08-04 00:00:00 Completed [facility] DTAP 2004-08-04 00:00:00 Completed [facility] HIB 3 Dose Schedule 2004-08-04 00:00:00 Completed [facility] Polio (IPV/OPV) 2004-08-04 00:00:00 Completed [facility] DTAP 2004-08-04 00:00:00 Completed [facility] HIB 3 Dose Schedule 2004-08-04 00:00:00 Completed [facility] Polio (IPV/OPV) 2004-08-04 00:00:00 Completed [facility] DTAP 2004-08-04 00:00:00 Completed [facility] HIB 3 Dose Schedule 2004-08-04 00:00:00 Completed [facility] Polio (IPV/OPV) 2004-08-04 00:00:00 Completed [facility] DTAP 2004-08-04 00:00:00 Completed [facility] HIB 3 Dose Schedule 2004-08-04 00:00:00 Completed [facility] Polio (IPV/OPV) 2004-08-04 00:00:00 Completed [facility] DTAP 2004-08-04 00:00:00 Completed [facility] HIB 3 Dose Schedule 2004-08-04 00:00:00 Completed [facility] Polio (IPV/OPV) 2004-08-04 00:00:00 Completed [facility] DTAP 2004-08-04 00:00:00 Completed [facility] HIB 3 Dose Schedule 2004-08-04 00:00:00 Completed [facility] Polio (IPV/OPV) 2004-08-04 00:00:00 Completed [facility] DTAP 2004-08-04 00:00:00 Completed [facility] HIB 3 Dose Schedule 2004-08-04 00:00:00 Completed [facility] Polio (IPV/OPV) 2004-08-04 00:00:00 Completed [facility] DTAP 2004-08-04 00:00:00 Completed [facility] HIB 3 Dose Schedule 2004-08-04 00:00:00 Completed [facility] Polio (IPV/OPV) 2004-08-04 00:00:00 Completed [facility] DTAP 2004-08-04 00:00:00 Completed [facility] HIB 3 Dose Schedule 2004-08-04 00:00:00 Completed [facility] Polio (IPV/OPV) 2004-08-04 00:00:00 Completed [facility] DTAP 2004-08-04 00:00:00 Completed HIB 3 Dose Schedule 2004-08-04 00:00:00 Completed Polio (IPV/OPV) 2004-08-04 00:00:00 Completed DTAP 2003-11-20 00:00:00 Completed [facility] HIB 3 Dose Schedule 2003-11-20 00:00:00 Completed [facility] Hep B, Adol or Pedi Dosage 2003-11-20 00:00:00 Completed [facility] MMR 2003-11-20 00:00:00 Completed [facility] Polio (IPV/OPV) 2003-11-20 00:00:00 Completed [facility] Varicella (varivax)(chicken pox) 2003-11-20 00:00:00 Completed [facility] DTAP 2003-11-20 00:00:00 Completed [facility] HIB 3 Dose Schedule 2003-11-20 00:00:00 Completed [facility] Hep B, Adol or Pedi Dosage 2003-11-20 00:00:00 Completed [facility] MMR 2003-11-20 00:00:00 Completed [facility] Polio (IPV/OPV) 2003-11-20 00:00:00 Completed [facility] Varicella (varivax)(chicken pox) 2003-11-20 00:00:00 Completed [facility] DTAP 2003-11-20 00:00:00 Completed [facility] HIB 3 Dose Schedule 2003-11-20 00:00:00 Completed [facility] Hep B, Adol or Pedi Dosage 2003-11-20 00:00:00 Completed [facility] MMR 2003-11-20 00:00:00 Completed [facility] Polio (IPV/OPV) 2003-11-20 00:00:00 Completed [facility] Varicella (varivax)(chicken pox) 2003-11-20 00:00:00 Completed [facility] DTAP 2003-11-20 00:00:00 Completed [facility] HIB 3 Dose Schedule 2003-11-20 00:00:00 Completed [facility] Hep B, Adol or Pedi Dosage 2003-11-20 00:00:00 Completed [facility] MMR 2003-11-20 00:00:00 Completed [facility] Polio (IPV/OPV) 2003-11-20 00:00:00 Completed [facility] Varicella (varivax)(chicken pox) 2003-11-20 00:00:00 Completed [facility] DTAP 2003-11-20 00:00:00 [facility] [facility] [place] HIB 3 Dose Schedule 2003-11-20 00:00:00 Completed [facility] Hep B, Adol or Pedi Dosage 2003-11-20 00:00:00 Completed [facility] MMR 2003-11-20 00:00:00 Completed [facility] Polio (IPV/OPV) 2003-11-20 00:00:00 Completed [facility] Varicella (varivax)(chicken pox) 2003-11-20 00:00:00 Completed [facility] DTAP 2003-11-20 00:00:00 Completed [facility] HIB 3 Dose Schedule 2003-11-20 00:00:00 Completed [facility] Hep B, Adol or Pedi Dosage 2003-11-20 00:00:00 Completed [facility] MMR 2003-11-20 00:00:00 Completed [facility] Polio (IPV/OPV) 2003-11-20 00:00:00 Completed [facility] Varicella (varivax)(chicken pox) 2003-11-20 00:00:00 Completed [facility] DTAP 2003-11-20 00:00:00 Completed [facility] HIB 3 Dose Schedule 2003-11-20 00:00:00 Completed [facility] Hep B, Adol or Pedi Dosage 2003-11-20 00:00:00 Completed [facility] MMR 2003-11-20 00:00:00 Completed [facility] Polio (IPV/OPV) 2003-11-20 00:00:00 Completed [facility] Varicella (varivax)(chicken pox) 2003-11-20 00:00:00 Completed [facility] DTAP 2003-11-20 00:00:00 Completed [facility] HIB 3 Dose Schedule 2003-11-20 00:00:00 Completed [facility] Hep B, Adol or Pedi Dosage 2003-11-20 00:00:00 Completed [facility] MMR 2003-11-20 00:00:00 Completed [facility] Polio (IPV/OPV) 2003-11-20 00:00:00 Completed [facility] Varicella (varivax)(chicken pox) 2003-11-20 00:00:00 Completed [facility] DTAP 2003-11-20 00:00:00 Completed [facility] HIB 3 Dose Schedule 2003-11-20 00:00:00 Completed [facility] Hep B, Adol or Pedi Dosage 2003-11-20 00:00:00 Completed [facility] MMR 2003-11-20 00:00:00 Completed [facility] Polio (IPV/OPV) 2003-11-20 00:00:00 Completed [facility] Varicella (varivax)(chicken pox) 2003-11-20 00:00:00 Completed [facility] DTAP 2003-11-20 00:00:00 Completed [facility] HIB 3 Dose Schedule 2003-11-20 00:00:00 Completed [facility] Hep B, Adol or Pedi Dosage 2003-11-20 00:00:00 Completed [facility] MMR 2003-11-20 00:00:00 Completed [facility] Polio (IPV/OPV) 2003-11-20 00:00:00 Completed [facility] Varicella (varivax)(chicken pox) 2003-11-20 00:00:00 Completed [facility] DTAP 2003-11-20 00:00:00 Completed [facility] HIB 3 Dose Schedule 2003-11-20 00:00:00 Completed Hep B, Adol or Pedi Dosage 2003-11-20 00:00:00 Completed MMR 2003-11-20 00:00:00 Completed Polio (IPV/OPV) 2003-11-20 00:00:00 Completed Varicella (varivax)(chicken pox) 2003-11-20 00:00:00 Completed Hep B, Adol or Pedi Dosage 2003-02-25 00:00:00 Completed [facility] Polio (IPV/OPV) 2003-02-25 00:00:00 Completed [facility] Hep B, Adol or Pedi Dosage 2003-02-25 00:00:00 Completed [facility] Polio (IPV/OPV) 2003-02-25 00:00:00 Completed [facility] Hep B, Adol or Pedi Dosage 2003-02-25 00:00:00 Completed [facility] Polio (IPV/OPV) 2003-02-25 00:00:00 Completed [facility] Hep B, Adol or Pedi Dosage 2003-02-25 00:00:00 Completed [facility] Polio (IPV/OPV) 2003-02-25 00:00:00 Completed [facility] Hep B, Adol or Pedi Dosage 2003-02-25 00:00:00 Completed [facility] Polio (IPV/OPV) 2003-02-25 00:00:00 Completed [facility] Hep B, Adol or Pedi Dosage 2003-02-25 00:00:00 Completed [facility] Polio (IPV/OPV) 2003-02-25 00:00:00 Completed [facility] Hep B, Adol or Pedi Dosage 2003-02-25 00:00:00 Completed [facility] Polio (IPV/OPV) 2003-02-25 00:00:00 Completed [facility] Hep B, Adol or Pedi Dosage 2003-02-25 00:00:00 Completed [facility] Polio (IPV/OPV) 2003-02-25 00:00:00 Completed [facility] Hep B, Adol or Pedi Dosage 2003-02-25 00:00:00 Completed [facility] Polio (IPV/OPV) 2003-02-25 00:00:00 Completed [facility] Hep B, Adol or Pedi Dosage 2003-02-25 00:00:00 Completed [facility] Polio (IPV/OPV) 2003-02-25 00:00:00 Completed [facility] Hep B, Adol or Pedi Dosage 2003-02-25 00:00:00 Completed Polio (IPV/OPV) 2003-02-25 00:00:00 Completed Hep B, Adol or Pedi Dosage 2002 00:00:00 Completed [facility] Hep B, Adol or Pedi Dosage 2002 00:00:00 Completed [facility] Hep B, Adol or Pedi Dosage 2002 00:00:00 Completed [facility] Hep B, Adol or Pedi Dosage 2002 00:00:00 Completed [facility] Hep B, Adol or Pedi Dosage 2002 00:00:00 Completed [facility] Hep B, Adol or Pedi Dosage 2002 00:00:00 Completed [facility] Hep B, Adol or Pedi Dosage 2002 00:00:00 Completed [facility] Hep B, Adol or Pedi Dosage 2002 00:00:00 Completed [facility] Hep B, Adol or Pedi Dosage 2002 00:00:00 Completed [facility] Hep B, Adol or Pedi Dosage 2002 00:00:00 Completed [facility] Hep B, Adol or Pedi Dosage 2002 00:00:00 Completed Vital Signs Vital Name Observation Time Observation Value Comments S ource Systolic blood pressure 2025-05-15 15:43:00 111 mm[Hg] [facility] Diastolic blood pressure 2025-05-15 15:43:00 77 mm[Hg] [facility] Heart rate 2025-05-15 15:43:00 83 /min [facility] 2025-05-15 15:43:00 36.72 Senait [facility] Body weight 2025-05-15 15:43:00 [facility]257 [facility] BMI 2025-05-15 15:43:00 43.99 kg/m2 [facility] Systolic blood pressure 2025-05-14 13:47:00 113 mm[Hg] [facility] Diastolic blood pressure 2025-05-14 13:47:00 74 mm[Hg] [facility] Heart rate 2025-05-14 13:47:00 80 /min [facility] Body temperature 2025-05-14 13:47:00 36.44 Senait [facility] Respiratory rate 2025-05-14 13:47:00 16 /min [facility] Oxygen saturation in Arterial blood by Pulse oximetry 2025-05-14 13:47:00 99 /min [facility] Body height 2025-05-11 23:40:00 162.6 cm [facility] Body weight 2025-05-11 23:40:00 119.296 kg [facility] BMI 2025-05-11 23:40:00 45.14 kg/m2 [facility] Systolic blood pressure 2025-05-05 16:11:00 133 mm[Hg] [facility] Diastolic blood pressure 2025-05-05 16:11:00 83 mm[Hg] [facility] Heart rate 2025-05-05 16:11:00 90 /min [facility] Body temperature 2025-05-05 16:11:00 36.56 Senait [facility] Respiratory rate 2025-05-05 16:11:00 18 /min [facility] Body height 2025-05-05 16:11:00 162.6 cm [facility] Body weight 2025-05-05 16:11:00 118.644 kg [facility] BMI 2025-05-05 16:11:00 44.90 kg/m2 [facility] Systolic blood pressure 2025-04-28 16:11:00 127 mm[Hg] [facility] Diastolic blood pressure 2025-04-28 16:11:00 80 mm[Hg] [facility] Heart rate 2025-04-28 16:11:00 100 /min [facility] Body temperature 2025-04-28 16:11:00 36.06 Senait [facility] Respiratory rate 2025-04-28 16:11:00 18 /min [facility] Body height 2025-04-28 16:11:00 162.6 cm [facility] 2025-04-28 16:11:00 117.346 kg [facility] BMI 2025-04-28 16:11:00 44.41 kg/m2 [facility] Systolic blood pressure 2025-04-22 20:23:00 119 mm[Hg] [facility] Diastolic blood pressure 2025-04-22 20:23:00 78 mm[Hg] [facility] Heart rate 2025-04-22 20:23:00 95 /min [facility] Body temperature 2025-04-22 20:23:00 36.61 Senait [facility] Respiratory rate 2025-04-22 20:23:00 18 /min [facility] Body height 2025-04-22 20:23:00 162.6 cm [facility] 2025-04-22 20:23:00 118.162 kg [facility] BMI 2025-04-22 20:23:00 44.71 kg/m2 [facility] Systolic blood pressure 2025-04-15 16:20:00 115 mm[Hg] [facility] Diastolic blood pressure 2025-04-15 16:20:00 72 mm[Hg] [facility] Heart rate 2025-04-15 16:20:00 87 /min [facility] Body temperature 2025-04-15 16:20:00 36.39 Senait [facility] Respiratory rate 2025-04-15 16:20:00 20 /min [facility] Body height 2025-04-15 16:20:00 162.6 cm [facility] 2025-04-15 16:20:00 115.27 kg [facility] BMI 2025-04-15 16:20:00 43.62 kg/m2 [facility] Systolic blood pressure 2025-04-01 20:49:00 128 mm[Hg] [facility] Diastolic blood pressure 2025-04-01 20:49:00 87 mm[Hg] [facility] Heart rate 2025-04-01 20:49:00 116 /min [facility] Body temperature 2025-04-01 20:49:00 36.06 Senait [facility] Respiratory rate 2025-04-01 20:49:00 20 /min [facility] Body height 2025-04-01 20:49:00 162.6 cm [facility] Body weight 2025-04-01 20:49:00 113.172 [facility] BMI 2025-04-01 20:49:00 42.83 kg/m2 [facility] Systolic blood pressure 2025-03-17 15:44:00 106 mm[Hg] [facility] Diastolic blood pressure 2025-03-17 15:44:00 67 mm[Hg] [facility] Heart rate 2025-03-17 15:44:00 81 /min [facility] Body temperature 2025-03-17 15:44:00 36.5 Senait [facility] Respiratory rate 2025-03-17 15:44:00 18 /min [facility] Body height 2025-03-17 15:44:00 162.6 cm [facility] Body weight 2025-03-17 15:44:00 110.768 kg [facility] BMI 2025-03-17 15:44:00 41.92 kg/m2 [facility] Systolic blood pressure 2025-02-27 14:58:00 111 mm[Hg] [facility] Diastolic blood pressure 2025-02-27 14:58:00 73 mm[Hg] [facility] Heart rate 2025-02-27 14:58:00 90 /min [facility] Body temperature 2025-02-27 14:58:00 35.94 Senait [facility] Respiratory rate 2025-02-27 14:58:00 18 /min [facility] Body height 2025-02-27 14:58:00 167.6 cm [facility] 2025-02-27 14:58:00 110.315 kg [facility] BMI 2025-02-27 14:58:00 39.25 kg/m2 [facility] Systolic blood pressure 2025-02-04 14:48:00 102 mm[Hg] [facility] Diastolic blood pressure 2025-02-04 14:48:00 70 mm[Hg] [facility] Heart rate 2025-02-04 14:48:00 78 /min [facility] Body temperature 2025-02-04 14:48:00 36.83 Senait [facility] Respiratory rate 2025-02-04 14:48:00 16 /min [facility] Body height 2025-02-04 14:48:00 167.6 cm [facility] Body weight 2025-02-04 14:48:00 107.502 kg [facility] BMI 2025-02-04 14:48:00 38.25 kg/m2 [facility] Systolic blood pressure 2025-01-08 16:14:00 111 mm[Hg] [facility] Diastolic blood pressure 2025-01-08 16:14:00 70 mm[Hg] [facility] Heart rate 2025-01-08 16:14:00 80 /min [facility] Body temperature 2025-01-08 16:14:00 37.06 Senait [facility] Respiratory rate 2025-01-08 16:14:00 18 /min [facility] Body height 2025-01-08 16:14:00 162.6 cm [facility] Body weight 2025-01-08 16:14:00 106.187 kg [facility] BMI 2025-01-08 16:14:00 40.18 kg/m2 [facility] Systolic blood pressure 2024-12-11 16:33:00 95 mm[Hg] [facility] Diastolic blood pressure 2024-12-11 16:33:00 66 mm[Hg] [facility] Heart rate 2024-12-11 16:33:00 81 /min [facility] Body temperature 2024-12-11 16:33:00 36.5 Senait [facility] Respiratory rate 2024-12-11 16:33:00 17 /min [facility] Body height 2024-12-11 16:33:00 162.6 cm [facility] Body weight 2024-12-11 16:33:00 104.917 kg [facility] BMI 2024-12-11 16:33:00 39.70 kg/m2 [facility] Systolic blood pressure 2024-11-13 17:00:00 137 mm[Hg] [facility] Diastolic blood pressure 2024-11-13 17:00:00 76 mm[Hg] [facility] Heart rate 2024-11-13 17:00:00 86 /min [facility] Body temperature 2024-11-13 17:00:00 36 Senait [facility] Respiratory rate 2024-11-13 17:00:00 18 /min [facility] Body height 2024-11-13 17:00:00 162.6 cm [facility] Body weight 2024-11-13 17:00:00 104.554 kg [facility] BMI 2024-11-13 17:00:00 39.57 kg/m2 [facility] Systolic blood pressure 2024-10-26 15:43:00 114 mm[Hg] [facility] Diastolic blood pressure 2024-10-26 15:43:00 82 mm[Hg] [facility] Heart rate 2024-10-26 15:43:00 87 /min [facility] Body temperature 2024-10-26 15:43:00 36.72 Senait [facility] Respiratory rate 2024-10-26 15:43:00 21 /min [facility] Body height 2024-10-26 15:43:00 162.6 cm [facility] Body weight 2024-10-26 15:43:00 104.781 kg [facility] BMI 2024-10-26 15:43:00 39.65 kg/m2 [facility] Oxygen saturation in Arterial blood by Pulse oximetry 2024-10-26 15:43:00 99 /min [facility] Systolic blood pressure 2024-10-24 21:19:00 127 mm[Hg] [facility] Diastolic blood pressure 2024-10-24 21:19:00 70 mm[Hg] [facility] Heart rate 2024-10-24 21:19:00 86 /min [facility] Body temperature 2024-10-24 21:19:00 36.17 Senait [facility] Respiratory rate 2024-10-24 21:19:00 16 /min [facility] Body height 2024-10-24 21:19:00 165.1 cm [facility] Body weight 2024-10-24 21:19:00 105.235 kg [facility] BMI 2024-10-24 21:19:00 38.61 kg/m2 [facility] Systolic blood pressure 2024-10-16 22:01:00 119 mm[Hg] [facility] Diastolic blood pressure 2024-10-16 22:01:00 70 mm[Hg] [facility] Heart rate 2024-10-16 22:01:00 83 /[facility] Body temperature 2024-10-16 22:01:00 36.5 Senait [facility] Respiratory rate 2024-10-16 22:01:00 17 /min [facility] Body height 2024-10-16 22:01:00 165.1 cm [facility] Body weight 2024-10-16 22:01:00 107.548 [facility] BMI 2024-10-16 22:01:00 39.46 kg/m2 [facility] Systolic blood pressure 2024-10-14 21:00:00 114 mm[Hg] [facility] Diastolic blood pressure 2024-10-14 21:00:00 87 mm[Hg] [facility] Heart rate 2024-10-14 21:00:00 76 /min [facility] Body temperature 2024-10-14 21:00:00 37.22 Senait [facility] Respiratory rate 2024-10-14 21:00:00 18 /min [facility] Oxygen saturation in Arterial blood by Pulse oximetry 2024-10-14 21:00:00 97 /min [facility] Body height 2024-10-14 17:36:00 165.1 cm [facility] Body weight 2024-10-14 17:36:00 108.863 kg [facility] BMI 2024-10-14 17:36:00 39.94 kg/m2 [facility] Systolic blood pressure 2024-09-18 20:46:00 120 mm[Hg] [facility] Diastolic blood pressure 2024-09-18 20:46:00 71 mm[Hg] [facility] Heart rate 2024-09-18 20:46:00 86 /min [facility] Body temperature 2024-09-18 20:46:00 37.33 Senait [facility] Respiratory rate 2024-09-18 20:46:00 18 /min [facility] Body height 2024-09-18 20:46:00 162.6 cm [facility] Body weight 2024-09-18 20:46:00 108.636 [facility] BMI 2024-09-18 20:46:00 41.11 kg/m2 [facility] Systolic blood pressure 2023-05-23 19:12:00 122 mm[Hg] [facility] Diastolic blood pressure 2023-05-23 19:12:00 98 mm[Hg] [facility] Heart rate 2023-05-23 19:12:00 68 /min [facility] Body temperature 2023-05-23 19:12:00 36.61 Senait [facility] Respiratory rate 2023-05-23 19:12:00 18 /min [facility] Body height 2023-05-23 19:12:00 162.6 cm [facility] Body weight 2023-05-23 19:12:00 95.255 kg [facility] BMI 2023-05-23 19:12:00 36.05 kg/m2 [facility] Oxygen saturation in Arterial blood by Pulse oximetry 2023-05-23 19:12:00 99 /min [facility] Systolic blood pressure 2023-02-24 00:41:00 112 mm[Hg] [facility] Diastolic blood pressure 2023-02-24 00:41:00 74 mm[Hg] [facility] Heart rate 2023-02-24 00:41:00 84 /min [facility] Body temperature 2023-02-24 00:41:00 36.94 Senait [facility] Respiratory rate 2023-02-24 00:41:00 20 /min [facility] Oxygen saturation in Arterial blood by Pulse oximetry 2023-02-24 00:41:00 98 /min [facility] Body height 2023-02-23 22:43:00 162.6 cm [facility] Body weight 2023-02-23 22:43:00 95.255 kg [facility] BMI 2023-02-23 22:43:00 36.05 kg/m2 [facility] Systolic blood pressure 2021-10-19 04:27:00 121 mm[Hg] [facility] Diastolic blood pressure 2021-10-19 04:27:00 79 mm[Hg] [facility] Heart rate 2021-10-19 04:27:00 107 /[facility] Body temperature 2021-10-19 04:27:00 38.72 Senait [facility] Respiratory rate 2021-10-19 04:27:00 18 /min [facility] Body height 2021-10-19 04:27:00 160 cm [facility] Body weight 2021-10-19 04:27:00 90.719 kg [facility] BMI 2021-10-19 04:27:00 35.43 kg/m2 [facility] Body mass index (BMI) [Percentile] Per age and sex 2021-10-19 04:27:00 97.54 % [facility] Oxygen saturation in Arterial blood by Pulse oximetry 2021-10-19 04:27:00 99 /min [facility] Systolic blood pressure 2021-05-22 10:55:00 118 mm[Hg] [facility] Diastolic blood pressure 2021-05-22 10:55:00 70 mm[Hg] [facility] Heart rate 2021-05-22 10:55:00 105 /min [facility] Body temperature 2021-05-22 10:55:00 38.17 Senait [facility] Respiratory rate 2021-05-22 10:55:00 18 /min [facility] Body height 2021-05-22 10:55:00 162.6 cm [facility] Body weight 2021-05-22 10:55:00 97.523 kg [facility] BMI 2021-05-22 10:55:00 36.90 kg/m2 [facility] Oxygen saturation in Arterial blood by Pulse oximetry 2021-05-22 10:55:00 97 /min [facility] Systolic blood pressure 2021-03-12 12:22:00 102 mm[Hg] [facility] Diastolic blood pressure 2021-03-12 12:22:00 57 mm[Hg] [facility] Heart rate 2021-03-12 12:22:00 69 /min [facility] Body temperature 2021-03-12 12:22:00 37.06 Senait [facility] Respiratory rate 2021-03-12 12:22:00 18 /min [facility] Oxygen saturation in Arterial blood by Pulse oximetry 2021-03-12 12:22:00 97 /min [facility] Body height 2021-03-11 20:55:00 165.1 cm [facility] Body weight 2021-03-11 20:55:00 105.461 kg [facility] BMI 2021-03-11 20:55:00 38.69 kg/m2 [facility] Systolic blood pressure 2021-03-06 05:21:03 135 mm[Hg] [facility] Diastolic blood pressure 2021-03-06 05:21:03 82 mm[Hg] [facility] Heart rate 2021-03-06 05:21:03 96 /min [facility] Body temperature 2021-03-06 05:21:03 37.22 Senait [facility] Respiratory rate 2021-03-06 05:21:03 20 /min [facility] Oxygen saturation in Arterial blood by Pulse oximetry 2021-03-06 05:21:03 98 /min [facility] Body height 2021-03-06 03:22:00 165.1 cm [facility] Body weight 2021-03-06 03:22:00 90.719 kg [facility] BMI 2021-03-06 03:22:00 33.28 kg/m2 [facility] Heart rate 2021-02-25 02:31:00 108 /min [facility] Systolic blood pressure 2021-02-25 01:21:00 123 mm[Hg] [facility] Diastolic blood pressure 2021-02-25 01:21:00 82 mm[Hg] [facility] Body temperature 2021-02-25 01:21:00 37.61 Senait [facility] Respiratory rate 2021-02-25 01:21:00 22 /min [facility] Body weight 2021-02-25 01:21:00 90.719 [facility] Oxygen saturation in Arterial blood by Pulse oximetry 2021-02-25 01:21:00 99 /min [facility] Systolic blood pressure 2019-10-22 15:39:00 113 mm[Hg] [facility] Diastolic blood pressure 2019-10-22 15:39:00 74 mm[Hg] [facility] Heart rate 2019-10-22 15:39:00 82 /min [facility] Body temperature 2019-10-22 15:39:00 36.83 Senait [facility] Respiratory rate 2019-10-22 15:39:00 16 /min [facility] Body height 2019-10-22 15:39:00 160 cm [facility] Body weight 2019-10-22 15:39:00 103.023 kg [facility] BMI 2019-10-22 15:39:00 40.23 kg/m2 [facility] Height Measured 2024-10-28 09:53:00 63.00 inches [...] Rate 2017-11-13 16:56:00 18.00 /min Marco Antonio Stacie Goins Procedures Procedure Date / Time Performed Performing Clinician Source CBC WITH DIFF 2025-05-14 10:03:00 Vita Funez [facility] VENOUS CORD GAS 2025-05-13 13:14:00 Colton Colbert [facility] CENTRAL NEURAXIAL BLOCK 2025-05-12 23:55:00 Joyce Siddiqui [facility] CBC WITH DIFF 2025-05-12 01:22:00 Colton Colbert [facility] HEPATITIS B SURFACE ANTIGEN 2025-05-12 01:22:00 Colton Colbert [facility] HB ABO GROUPING 2025-05-12 01:22:00 Colton Colbert Uni [facility] RHO (D) IMMUNE GLOBULIN 2025-05-12 01:22:00 Fadi Funez [facility] HIV 1/2 AG-AB WITH REFLEX 2025-05-12 01:22:00 Colton Colbert [facility] SYPHILIS IGG/IGM 2025-05-12 01:22:00 [facility] GLUCOSE & PROTEIN 2025-03-17 15:46:00 Nubia Hanley [facility] TDAP VACCINE, >11 YRS, IM 2025-02-27 15:14:24 Nubia Hanley [facility] POCT URINALYSIS 2025-02-04 00:00:00 Nubia Hanley [facility] POCT URINALYSIS 2025-01-08 16:16:00 Nubia Hanley [facility] POCT URINALYSIS 2024-12-11 00:00:00 Nubia Hanley [facility] POCT URINALYSIS 2024-11-13 17:03:00 Nubia Hanley [facility] NIPT - NON-INVASIVE TEST RESULTS 2024-11-04 12:56:07 Doctor Unassigned, [place] [facility] NIPT - NON-INVASIVE TEST RESULTS 2024-10-31 22:45:35 Doctor Unassigned, [place] [facility] POCT URINALYSIS 2024-10-26 16:04:00 Faiza Reyes Un [facility] FIRST TRIMESTER ULTRASOUND 2024-10-25 20:54:00 Nubia Hanley [facility] POCT URINALYSIS 2024-10-24 21:27:00 Nubia Hanley [facility] POCT URINALYSIS 2024-10-16 00:00:00 Nubia Hanley [facility] US FIRST TRIMESTER LESS THAN 14 WEEKS WITH TRANSVAGINAL 2024-10-14 19:24:18 Fabrizio Tinsley [facility] COMP. METABOLIC PANEL (45038) 2024-10-14 18:34:00 Fabrizio Tinsley [facility] TOTAL BETA HCG ASSAY 2024-10-14 18:34:00 Rehan Tinsley [facility] CBC WITH DIFF 2024-10-14 18:34:00 Singer [facility] URINALYSIS 2024-10-14 18:31:00 Fabrizio Tinsley [facility] POCT TEST 2024-10-14 18:31:00 Maxwell Tinsley [facility] CBC WITH DIFF 2024-09-18 22:18:00 Nubia Hanley [facility] GLYCOSYLATED HEMOGLOBIN (A1C) 2024-09-18 22:18:00 Nubia Hanley [facility] RUBELLA SCREEN IGG 2024-09-18 22:18:00 Lele Hanley [facility] VZV ANTIBODY SCREEN 2024-09-18 22:18:00 Ilya Hanley [facility] HEPATITIS B SURFACE ANTIGEN 2024-09-18 22:18:00 Nubia Hanley [facility] HCV ANTIBODY 2024-09-18 22:18:00 Nubia Hanley [facility] HB ABO GROUPING 2024-09-18 22:18:00 Nubia Hanley [facility] HIV 1/2 AG-AB WITH REFLEX 2024-09-18 22:18:00 Nubia Hanley [facility] PAP SMEAR-LIQUID BASED-CP 2024-09-18 22:18:00 Nubia Hanley [facility] SYPHILIS IGG/IGM 2024-09-18 22:18:00 Amos Hanley [facility] FLU VACC (), 6 MO-64 YRS, .5ML, IM, TIV (FLUCELVAX) 2024-09-18 20:54:43 Nubia Hanley [facility] POCT URINALYSIS W/O SPECIFIC GRAVITY 2024-09-18 20:38:00 Nubia Hanley [facility] POCT TEST 2024-09-18 20:37:00 Ilya Hanley [facility] POCT TEST 2023-05-23 22:15:00 Tamiko Ayoub [facility] LIPASE 2023-05-23 20:07:00 [facility] COMP. METABOLIC PANEL ([id number]) 2023-05-23 20:07:00 Jennifer Ayoub [facility] CBC WITH DIFF 2023-05-23 20:07:00 Jennifer [facility] 2023-05-23 20:07:00 Mega [facility] ASSIGNMENT OF BENEFITS 2023-05-23 19:45:58 Docto r Unassigned, [place] [facility] ASSIGNMENT OF BENEFITS 2023-02-23 23:29:30 Docto r Unassigned, [place] [facility] RAPID STREP SCREEN FOR GROUP A 2023-02-23 23:18:00 Thelma Garcia [facility] RAPID INFLUENZA A/B 2023-02-23 23:18:00 Jatinder Garcia [facility] COVID-19 (ID NOW RAPID TESTING) 2023-02-23 23:18:00 Thelma Garcia [facility] CONSENT/REFUSAL FOR DIAGNOSIS AND TREATMENT 2023-02-23 22:27:31 Doctor Unassigned, [place] [facility] RAPID INFLUENZA A/B 2021-10-19 04:38:00 Micha Vanessa [facility] NOTICE OF PRIVACY PRACTICES 2021-10-19 04:25:24 Doctor Unassigned, [place] [facility] CONSENT/REFUSAL FOR DIAGNOSIS AND TREATMENT 2021-10-19 04:25:07 Doctor Unassigned, [place] [facility] URINALYSIS 2021-05-22 11:31:00 Suzette [facility] POCT TEST 2021-05-22 11:31:00 Suzette Michele [facility] COVID-19 (ID NOW RAPID TESTING) 2021-05-22 11:17:00 DoloressongSuzette [facility] CONSENT/REFUSAL FOR DIAGNOSIS AND TREATMENT 2021-05-22 10:19:37 Doctor Unassigned, [place] [facility] MAGNESIUM 2021-03-12 09:44:00 Anatoly Valdovinos [facility] BASIC METABOLIC PANEL (NA, K, CL, CO2, GLUCOSE, BUN, CREATININE, CA) 2021-03-12 09:44:00 Anatoly Valdovinos [facility] CBC WITH DIFF 2021-03-12 09:44:00 Anatoly [facility]inos [facility] COVID-19 (ID NOW RAPID TESTING) 2021-03-11 17:06:00 Solange Ford [facility] BLOOD CULTURE SCREEN 2021-03-11 17:05:00 Ashok Ford [facility] URINE CULTURE 2021-03-11 17:05:00 Solange Ford [facility] LACTIC ACID WHOLE BLOOD 2021-03-11 17:04:00 Do adriane Ford [facility] BLOOD CULTURE SCREEN 2021-03-11 16:35:00 Ashok Ford [facility] CT ABDOMEN PELVIS W CONTRAST 2021-03-11 15:56:47 Solange Ford [facility] LIPASE 2021-03-11 15:07:00 Solange Ford [facility] COMP. METABOLIC PANEL ([id number]) 2021-03-11 15:07:00 Solange Ford [facility] CBC WITH DIFF 2021-03-11 15:07:00 Solange [facility] URINALYSIS 2021-03-11 15:07:00 [facility] POCT TEST 2021-03-11 15:06:00 Tatiana Ford [facility] NOTICE OF PRIVACY PRACTICES 2021-03-11 14:51:22 Doctor Unassigned, [place] [facility] CONSENT/REFUSAL FOR DIAGNOSIS AND TREATMENT 2021-03-11 14:50:52 Doctor Unassigned, [place] [facility] XR CHEST 2 VW 2021-03-06 04:04:44 Mega Jennifer Cathy [facility] NOTICE OF PRIVACY PRACTICES 2021-03-06 03:15:08 Doctor Unassigned, [place] [facility] CONSENT/REFUSAL FOR DIAGNOSIS AND TREATMENT 2021-03-06 03:14:52 Doctor Unassigned, [place] [facility] COVID-19 (ID NOW RAPID TESTING) 2021-02-25 01:56:00 Micha Vanessa [facility] NOTICE OF PRIVACY PRACTICES 2021-02-25 01:15:24 Doctor Unassigned, [place] [facility] CONSENT/REFUSAL FOR DIAGNOSIS AND TREATMENT 2021-02-25 01:10:32 Doctor Unassigned, [place] [facility] Encounters Start Date/Time End Date/Time Encounter Type Admission Type Attending [facility] Facility Care Department Encounter ID Source 2021-08-08 22:53:54 Emergency [facility] [id number] [facility] 2021-08-08 22:05:35 Emergency [facility] [id number] [facility] 2021-08-08 20:09:33 Emergency [facility] [id number] [facility] 2025-05-15 09:00:00 2025-05-15 10:26:04 Nurse Visit R Visit, [facility] Nurse Nubia Hanley [facility] EMBOSSING MACHINE OPERATOR HELPER [facility] MATERNAL & CHILD HEALTH [facility] 1..840.114 350.1.13.10 4.2.7.2.[id number] [facility] 2025-05-11 18:13:00 2025-05-14 15:31:00 Hospital Encounter P ERIKA CHAVARRIA FARANAK [facility] [id number] [facility] 2025-05-12 18:55:00 2025-05-13 12:15:00 Anesthesia Event Tamiko Pierre Sophia [facility] ([facility]) 1..840.114 350.1.13.10 4.2.7.2.[id number] [facility] 2025-05-11 18:00:00 2025-05-11 18:00:00 Outpatient INDUCTION, YAS [facility] [id number] [facility] 2025-05-08 00:00:00 2025-05-08 17:05:00 Patient Secure Msg Nubia Hanley [facility] EMBOSSING MACHINE OPERATOR HELPER [facility] & CHILD [facility] .840.114 350.1.13.10 4.2.7.2.[id number] [facility] 2025-05-06 14:00:00 2025-05-06 14:00:00 Outpatient INDUCTION, YAS [facility] [id number] [facility] 2025-05-05 11:00:00 2025-05-05 12:09:20 Routine Visit R Nubia Hanley [facility] EMBOSSING MACHINE OPERATOR HELPER [facility] & CHILD [facility] .84.114 350.1.13.10 4.2.7.2.[id number] [facility] 2025-05-03 00:00:00 2025-05-05 08:58:31 Patient Secure Msg Doctor Unassigned, [place] Doctor Unassigned, [place] [facility] ([facility]) ..114 350.1.13.10 4.2.7.2.[id number] [facility] 2025-04-28 00:00:00 2025-04-29 16:11:07 Patient Secure Msg Nubia Hanley [facility] EMBOSSING MACHINE OPERATOR HELPER [facility] CHILD [facility] .840.114 350.1.13.10 4.2.7.2.[id number] [facility] 2025-04-28 11:15:00 2025-04-28 11:36:36 Routine Visit R Nubia Hanley [facility] EMBOSSING MACHINE OPERATOR HELPER [facility] & [facility] 1.2.840.114 350.1.13.10 4.2.7.2.[id number] [facility] 2025-04-22 15:15:00 2025-04-22 15:46:42 Routine Visit R Nubia Hanley [facility] EMBOSSING MACHINE OPERATOR HELPER [facility] & CHILD [facility] 1.2.840.114 350.1.13.10 4.2.7.2.[id number] [facility] 2025-04-16 12:30:00 2025-04-16 12:30:00 Outpatient R NUBIA HANLEY [facility] [id number] [facility] 2025-04-15 11:15:00 2025-04-15 11:44:05 Routine Visit R Nubia Hanley [facility] EMBOSSING MACHINE OPERATOR HELPER [facility] CHILD [facility] 1.840.114 350.1.13.10 4.2.7.2.[id number] [facility] 2025-04-15 11:00:00 2025-04-15 11:00:00 Outpatient R NUBIA HANLEY [facility] [id number] [facility] 2025-02-27 00:00:00 2025-04-05 18:31:40 Patient Secure Msg Nubia Hanley [facility] EMBOSSING MACHINE OPERATOR HELPER [facility] & CHILD [facility] 1.2840.114 350.1.13.10 4.2.7.2.[id number] [facility] 2025-04-01 15:30:00 2025-04-01 16:25:07 Routine Visit R Nubia Hanley [facility] EMBOSSING MACHINE OPERATOR HELPER [facility] 1.2840.114 350.1.13.10 4.2.7.2.[id number] [facility] 2025-03-31 15:45:00 2025-03-31 15:45:00 Outpatient R NUBIA HANLEY [facility] [id number] [facility] 2025-03-31 10:30:00 2025-03-31 10:30:00 Outpatient R NUBIA HANLEY [facility] [id number] [facility] 2025-03-17 10:30:00 2025-03-17 11:18:06 Routine Visit R NUBIA HANLEY [facility] EMBOSSING MACHINE OPERATOR HELPER [facility] & CHILD [facility] 1.2.840.114 350.1.13.10 4.2.7.2.[id number] [facility] 2025-02-27 09:45:00 2025-02-27 10:21:23 Routine Visit R Nubia Hanley [facility] EMBOSSING MACHINE OPERATOR HELPER [facility] & CHILD [facility] 1.2.840.114 350.1.13.10 4.2.7.2.[id number] [facility] 2025-02-18 10:15:00 2025-02-18 10:15:00 Outpatient R NUBIA HANLEY [facility] [id number] [facility] 2025-02-04 00:00:00 2025-02-12 07:14:09 Patient Secure Msg Nubia Hanley [facility] EMBOSSING MACHINE OPERATOR HELPER [facility] & CHILD [facility] 1.2.840.114 350.1.13.10 4.2.7.2.[id number] [facility] 2025-02-11 00:00:00 2025-02-11 15:18:45 Telephone Nubia aHnley [facility] EMBOSSING MACHINE OPERATOR HELPER [facility] & CHILD [facility] 1.2.840.114 350.1.13.10 4.2.7.2.[id number] [facility] 2025-02-05 00:00:00 2025-02-05 11:19:20 Patient Secure Msg Nubia Hanley [facility] EMBOSSING MACHINE OPERATOR HELPER [facility] & CHILD [facility] 1.2.840.114 350.1.13.10 4.2.7.2.[id number] [facility] 2025-02-05 10:30:00 2025-02-05 10:30:00 Outpatient R NUBIA HANLEY [facility] [id number] [facility] 2025-02-04 09:30:00 2025-02-04 11:01:13 Outpatient R NUBIA HANLEY [facility] [id number] [facility] 2025-02-04 09:30:00 2025-02-04 11:01:13 Routine Visit Nubia Hanley [facility] EMBOSSING MACHINE OPERATOR HELPER [facility] CHILD [facility] 1.2.840.114 350.1.13.10 4.2.7.2.[id number] [facility] 2024-12-31 00:00:00 2025-02-01 18:16:14 Patient Secure Msg Nubia Hanley [facility] EMBOSSING MACHINE OPERATOR HELPER [facility] CHILD [facility] 1.2.840.114 350.1.13.10 4.2.7.2.[id number] [facility] 2025-01-28 00:00:00 2025-01-28 14:40:42 Patient Secure Msg Nubia Hanley [facility] EMBOSSING MACHINE OPERATOR HELPER [facility] & CHILD [facility] 1.2.840.114 350.1.13.10 4.2.7.2.[id number] [facility] 2025-01-22 00:00:00 2025-01-23 13:29:35 Telephone Nubia Hanley [facility] EMBOSSING MACHINE OPERATOR HELPER [facility] CHILD [facility] 1.2.840.114 350.1.13.10 4.2.7.2.[id number] [facility] 2024-12-18 00:00:00 2025-01-18 18:14:53 Patient Secure Nubia Sanders [facility] EMBOSSING MACHINE OPERATOR HELPER [facility] & CHILD [facility] 1.2840.114 350.1.13.10 4.2.7.2.[id number] [facility] 2025-01-08 11:00:00 2025-01-08 11:39:36 Outpatient R NUBIA HANLEY [facility] [id number] [facility] 2025-01-08 11:00:00 2025-01-08 11:39:36 Routine Visit Nubia Hanley [facility] & CHILD [facility] 1.840.114 350.1.13.10 4.2.7.2.[id number] [facility] 2024-12-31 00:00:00 2024-12-31 15:50:08 Patient Secure Nubia Sanders [facility] EMBOSSING MACHINE OPERATOR [facility] 1.84.114 350.1.13.10 4.2.7.2.[id number] [facility] 2024-12-24 13:00:00 2024-12-24 14:21:53 Outpatient P JONO PHOENIX [facility] [id number] [facility] 2024-12-11 10:30:00 2024-12-11 11:01:16 Outpatient R AMOLVIRGILIO SAAVEDRANUBIA [facility] [id number] [facility] 2024-12-11 10:30:00 2024-12-11 11:01:16 Routine Visit Dayan Nubia Orellana [facility] EMBOSSING MACHINE OPERATOR HELPER [facility] 1.840.114 350.1.13.10 4.2.7.2.[id number] [facility] 2024-10-25 00:00:00 2024-11-30 18:20:39 Patient Secure Msg Nubia Hanley [facility] EMBOSSING MACHINE OPERATOR HELPER [facility] & CHILD [facility] 1.2.840.114 350.1.13.10 4.2.7.2.[id number] [facility] 2024-10-28 00:00:00 2024-11-30 18:18:55 Patient Secure Msg Doctor Unassigned, [place] Doctor Unassigned, [place] [facility] ([facility]) 1.2.840.114 350.1.13.10 4.2.7.2.[id number] [facility] 2024-10-29 00:00:00 2024-11-30 18:18:27 Patient Secure Msg Doctor Unassigned, [place] Doctor Unassigned, [place] [facility] ([facility]) 1.2.840.114 350.1.13.10 4.2.7.2.[id number] [facility] 2024-10-21 00:00:00 2024-11-23 18:20:21 Patient Secure Msg Nubia Hanley [facility] EMBOSSING MACHINE OPERATOR HELPER [facility] 1.2.840.114 350.1.13.10 4.2.7.2.[id number] [facility] 2024-10-21 00:00:00 2024-11-23 18:19:50 Patient Secure Msg Doctor Unassigned, [place] Doctor Unassigned, [place] [facility] ([facility]) 1.2.840.114 350.1.13.10 4.2.7.2.[id number] [facility] 2024-10-31 00:00:00 2024-11-23 06:15:59 Orders Only Doctor Unassigned, [place] Doctor Unassigned, [place] [facility] ([place]) 1.2.840.114 350.1.13.10 4.2.7.2.[id number] [facility] 2024-11-04 00:00:00 2024-11-23 06:14:51 Orders Only Doctor Unassigned, [place] Doctor Unassigned, [place] [facility] ([place]) 1.2.840.114 350.1.13.10 4.2.7.2.[id number] [facility] 2024-10-14 00:00:00 2024-11-16 18:20:21 Patient Secure Msg Nubia Hanley [facility] EMBOSSING MACHINE OPERATOR HELPER [facility] & CHILD [facility] 1.840.114 350.1.13.10 4.2.7.2.[id number] [facility] 2024-11-13 11:00:00 2024-11-13 11:37:25 Outpatient R NUBIA HANLEY [facility] [id number] [facility] 2024-11-13 11:00:00 2024-11-13 11:37:25 Routine Visit Nubia Hanley [facility] EMBOSSING MACHINE OPERATOR HELPER [facility] & CHILD [facility] 1.840.114 350.1.13.10 4.2.7.2.[id number] [facility] 2024-10-30 00:00:00 2024-10-30 09:02:00 Case Management Ayala Heck [facility] EMBOSSING MACHINE OPERATOR HELPER [facility] & CHILD [facility] 1.2840.114 350.1.13.10 4.2.7.2.[id number] [facility] 2024-10-29 00:00:00 2024-10-29 18:02:50 Abstract Nubia Hanley [facility] EMBOSSING MACHINE OPERATOR HELPER [facility] & CHILD [facility] 1.2.840.114 350.1.13.10 4.2.7.2.[id number] [facility] 2024-10-29 00:00:00 2024-10-29 14:31:22 Nurse Triage Vicki Light Stacy [facility] ([place]) 1.0.114 350.1.13.10 4.2.7.2.[id number] [facility] 2024-10-28 00:00:00 2024-10-28 16:57:38 Telephone Faiza Reyes [facility] 1.114 350.1.13.10 4.2.7.2.[id number] [facility] 2024-10-28 09:39:29 2024-10-28 09:39:29 Outpatient SFA [facility] [id number] Marco Antonio Goins 2024-10-28 00:00:00 2024-10-28 00:00:00 Outpatient Visit [facility] [id number] Marco Antonio Goins 2024-09-19 00:00:00 2024-10-26 18:21:55 Patient Secure Msg Nubia Hanley [facility] EMBOSSING MACHINE OPERATOR HELPER [facility] MATERNAL & [facility] 1.114 350.1.13.10 4.2.7.2.[id number] [facility] 2024-09-19 00:00:00 2024-10-26 18:21:49 Patient Secure Msg Doctor Unassigned, [place] Doctor Unassigned, [place] [facility] ([facility]) 1.2.114 350.1.13.10 4.2.7.2.[id number] [facility] 2024-10-26 09:20:00 2024-10-26 10:44:58 Outpatient R FAIZA REYES [facility] [id number] [facility] 2024-10-26 09:20:00 2024-10-26 10:44:58 Urgent Care Faiza Reyes Unknown, Attending [facility] 1..840.114 350.1.13.10 4.2.7.2.[id number] [facility] 2024-10-25 14:30:00 2024-10-25 15:09:11 Outpatient R ABI LÓPEZ KARIN FOX, KARIN [facility] [id number] [facility] 2024-10-25 14:30:00 2024-10-25 15:09:11 Supervisor Drying And Softening Visit Ultrasound, Abi Mckeon [facility] EMBOSSING MACHINE OPERATOR HELPER [facility] & CHILD [facility] 1.840.114 350.1.13.10 4.2.7.2.[id number] [facility] 2024-10-24 15:30:00 2024-10-24 16:16:26 Outpatient R AYALA HECK [facility] [id number] [facility] 2024-10-24 15:30:00 2024-10-24 16:16:26 Routine Visit Nubia Hanley Brenda A [facility] EMBOSSING MACHINE OPERATOR HELPER [facility] & CHILD [facility] 1.840.114 350.1.13.10 4.2.7.2.[id number] [facility] 2024-10-24 00:00:00 2024-10-24 11:56:32 Telephone Nubia Hanley [facility] EMBOSSING MACHINE OPERATOR HELPER [facility] CHILD [facility] 1..840.114 350.1.13.10 4.2.7.2.[id number] [facility] 2024-10-16 16:00:00 2024-10-16 16:21:07 Outpatient R NUBIA HANLEY [facility] [id number] [facility] 2024-10-16 16:00:00 2024-10-16 16:21:07 Routine Visit Nubia Hanley [facility] EMBOSSING MACHINE OPERATOR HELPER [facility] & CHILD [facility] 1.2.840.114 350.1.13.10 4.2.7.2.[id number] [facility] 2024-10-14 11:37:00 2024-10-14 15:05:00 Emergency X FABRIZIO TINSLEY [facility] [id number] [facility] 2024-10-14 11:37:00 2024-10-14 15:05:00 Emergency Fabrizio Tinsley AT [facility] 1.2.840.114 350.1.13.10 4.2.7.2.[id number] [facility] 2024-09-19 00:00:00 2024-09-20 07:43:51 Telephone Nubia Hanley [facility] EMBOSSING MACHINE OPERATOR HELPER [facility] 1.2.840.114 350.1.13.10 4.2.7.2.[id number] [facility] 2024-09-19 00:00:00 2024-09-20 07:36:32 Telephone Nubia Hanley [facility] EMBOSSING MACHINE OPERATOR HELPER [facility] & CHILD [facility] 1.2.840.114 350.1.13.10 4.2.7.2.[id number] [facility] 2024-09-18 00:00:00 2024-09-19 06:55:10 Patient Secure Msg Nubia Hanley [facility] EMBOSSING MACHINE OPERATOR HELPER [facility] & CHILD [facility] 1.2.840.114 350.1.13.10 4.2.7.2.[id number] [facility] 2024-09-18 14:30:00 2024-09-18 16:16:56 Initial Visit DayanNubia [facility] EMBOSSING MACHINE OPERATOR HELPER [facility] MATERNAL & CHILD HEALTH [facility] 1.2.840.114 350.1.13.10 4.2.7.2.[id number] [facility] 2024-09-18 14:00:00 2024-09-18 14:31:28 Outpatient R DAYANNUBIA [facility] [id number] [facility] 2023-05-23 14:13:00 2023-05-23 18:16:00 Emergency X MEGA JENNIFER [facility] ERT [id number] [facility] 2023-05-23 14:13:00 2023-05-23 18:16:00 Emergency Ayoub Jennifer [facility] 1..840.114 350.1.13.10 4.2.7.2.[id number] [facility] 2023-02-23 17:44:00 2023-02-23 19:46:00 Emergency X THELMA GARCIA [facility] ERT [id number] [facility] 2023-02-23 17:44:00 2023-02-23 19:46:00 Emergency Thelma Garcia [facility] 1..840.114 350.1.13.10 4.2.7.2.[id number] 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 2021-10-19 00:00:00 2021-10-19 00:00:00 Patient Secure Msg Doctor Unassigned, [place] [facility] 1.2.840.114 350.1.13.10 4.2.7.2.[id number] [facility] 2021-10-19 00:00:00 2021-10-19 00:00:00 Patient Secure Msg Nubia Hanley [facility] EMBOSSING MACHINE OPERATOR HELPER [facility]ER[facility] & CHILD HEALTH [facility] 1.2.840.114 350.1.13.10 4.2.7.2.[id number] [facility] 2021-10-18 22:40:00 2021-10-18 23:11:00 Emergency X MICHA VANESSA [facility] ERT [id number] [facility] 2021-10-18 22:40:00 2021-10-18 23:11:00 Emergency Micha Vanessa [facility] 1.2.840.114 350.1.13.10 4.2.7.2.[id number] [facility] 2021-05-22 05:58:00 2021-05-22 07:44:00 Emergency Suzette Michele [facility] 1.2.840.114 350.1.13.10 4.2.7.2.[id number] [facility] 2021-05-22 05:58:00 2021-05-22 07:44:00 Emergency X SUZETTE MICHELE [facility] ERT [id number] [facility] 2021-05-22 00:00:00 2021-05-22 00:00:00 Orders Only Doctor Unassigned, [place] [facility] 1.2.840.114 350.1.13.10 4.2.7.2.[id number] [facility] 2021-03-11 09:58:00 2021-03-12 13:25:00 Emergency Solange Ford Yaman [facility] 1.2.840.114 350.1.13.10 4.2.7.2.[id number] [facility] 2021-03-05 22:26:00 2021-03-06 00:33:00 Emergency Jennifer Ayoub [facility] 1.2.840.114 350.1.13.10 4.2.7.2.[id number] [facility] 2021-02-24 20:25:00 2021-02-24 21:57:00 Emergency Micha Vanessa [facility] 1.2.840.114 350.1.13.10 4.2.7.2.[id number] 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 Results Test Description Test Time Test Comments Results Result Co mments Source [facility] Acy2004-83-21 13:23:42* Test Item Value Reference Range Interpretation Comme nts BASE EXCESS, CORD (test code = 0098963657) -6.5 mEq/L AC PH, CORD (test code = 0502468922) 7.17 7.18-7.38 L PC02, CORD (test code = 1392809521) 64 32-66 PO2, CORD (test code = 1091249489) 17 10-30 BICARBONATE, CORD (test code = 0503703967) 23 17-27 Lab Interpretation (test cod e = 81167-9) Abnormal [facility] Atlanta[facility]ous Cord Opr4711-47-32 13:23:07* Test Item Value Reference Range Interpretation Comme nts VENOUS BASE EXCESS, CORD (te st code = 2207482578) -3.9 mEq/L VENOUS PH, CORD (test code = 4077251030) 7.36 7.25-7.45 VENOUS PC02, CORD (test code = 2660548205) 38 27-49 VENOUS PO2, CORD (test code = 1086404665) 28 17-41 VENOUS BICARBONATE, CORD (te st code = 7409873801) 21 12-29 [facility] Ne[facility]axial Rqpww3341-93-37 23:55:00 Joyce Siddiqui DO ? ? 05/13/2025 ?6:22 AM Central Neuraxial Block Date/Time: 05/12/2025 6:55 PM Performed by: Joyce Siddiqui DOAuthorized by: Keely Hobson MD ?Patient Location: OBReason for Block: OB request, Patient request, Labor analgesia, Surgical anesthesia and Post-op pain managementStaff: ?Anesthesiologist: Keely Hobson MD ?Resident/SUPERVISOR NUCLEAR MEDICINE: Joyce Siddiqui DO ?Performed by: resident/CRNAPreanesthetic Checklist: [...] ?Technique: KRIS saline ?Guidance with: landmark technique}Epidural/Spinal [place] and/or Catheter: ?Epidural/Spinal Kit: BBraun ?Needle Type: [...] Assessment: patient tolerated procedure well with no complicationsUnMemorial Hermann–Texas Medical CenterGAL ONLY - SYPHILIS IGG/LST7467-11-02 14:51:49* Test Item Value Reference Range Interpretation Comme nts Syphilis IgG/IgM (test code = 78284-8) Nonreactive Nonreactive Syphilis Serology Interpretation (test code = 79280-3) No serologic evidence of syphilis. If recent exposure is suspected, retest in 2 to 4 weeks. EVERARDO (test code = EVERARDO) ? [facility] AtlantaHI 1/2 AG-AB WITH QRWVVD1941-37-23 02:49:17* Test Item Value Reference Range Interpretation Comme nts HIV Semi-quantitative (test code = 89489-7) 0.1 Negative EVERARDO (test code = EVERARDO) Non-reactive for HIV-1 antigen and HIV-1/HIV-2 antibodies. ?No laboratory evidence of HIV infection. ?Repeat in 2-4 weeks if acute HIV infection is suspected. [facility] AtlantaHepatitis B Surface Qcnrjjw3852-73-80 02:39:55 * Test Item Value Reference Range Interpretation Comme nts HBsAg Semi-Quantitative (yao t code = 5195-3) 0.07 Negative [facility] AtlantaCBC with Rbuhsozuhoqf2517-56-74 01:41:28* Test Item Value Reference Range Interpretation [...] 34.9 g/dL 31.6-35.1 RDW-SD (test code = 02158-6) 41.3 fL 39.0-49.9 RDW-CV (test code = 788-0) 13 % 12.0-15.5 PLT (test code = 777-3) 194 166-358 MPV (test code = 82069-9) 10 fL 9.5-12.9 NRBC/100 WBC (test code = 2374239337) 0 0.0-10.0 NRBC x10^3 (test code = 1142123589) See_Comment [Automated messa ge] The system which generated this result transmitted reference range: 10*3/?L. The reference range was not used to interpret this result as normal/abnormal. GRAN MAT (NEUT) % (test code = 770-8) 70.9 % IMM GRAN % (test code = 1335751279) 0.4 % LYMPH % (test code = 736-9) 22.6 % MONO % (test code = 5905-5) 5.8 % EOS % (test code = 713-8) 0.1 % BASO % (test code = 706-2) 0.2 % GRAN MAT x10^3(ANC) (test code = 3392396722) 5.84 10*3/uL 1.88-7.09 IMM GRAN x10^3 (test code = 2153996794) 0.03 10*3/uL 0.00-0.06 LYMPH x10^3 (test code = 731-0) 1.86 10*3/uL 1.32-3.29 MONO x10^3 (test code = 742-7) 0.48 10*3/uL 0.33-0.92 EOS x10^3 (test code = 711-2) 0.03-0.39 L BASO x10^3 (test code = 704-7) 0.01-0.07 Lab Interpretation (test code = 15209-0) Abnormal [facility] AtlantaType and Screen - ONCE FUFR0023-00-66 01:27:00 * Test Item Value Reference Range Interpretation Comme nts ABO & RH (test code = 20) O NEGATIVE IAT (test code = 1185) Negative [facility] AtlantaPOCT Urinalysis Glucose & Uvpfhwi0420-40-81 15:46:00* Test Item Value Reference Range Interpretation Comme nts POCT U PROT (test code = 3259) negative Negative - Negat dash POCT U GLU (test code = 3256) negative Negative - Negati ve [facility] URINALYSIS W SPECIFIC ZHCTPDQ1934-07-95 17:23:00* Test Item Value Reference Range Interpretation [...] U APPEAR (test code = 3267) . [facility] URINALYSIS W SPECIFIC SWZIGZM8818-92-54 16:16:00* Test Item Value Reference Range Interpretation [...] U APPEAR (test code = 3267) . [facility] URINALYSIS W SPECIFIC QUOLEYY9820-46-66 16:34:00* Test Item Value Reference Range Interpretation [...] U APPEAR (test code = 3267) . [facility] URINALYSIS W SPECIFIC NAWNIQP2978-18-91 17:03:00* Test Item Value Reference Range Interpretation [...] POCT U APPEAR (test code = 3267) [facility] - NON-INVASIVE TEST RESULTS 2024-11-04 12:56:07Ordered by an unspecified provider.[facility] - NON-INVASIVE TEST MITRLPW1547-84-80 22:45:35 Ordered by an unspecified provider.[facility] Urinalysis W Specific Gvzrekj0193-37-55 16:04:00* Test Item Value Reference Range Interpretation [...] clear Lab Interpretation (test cod e = 82080-8) Abnormal [facility] URINALYSIS W SPECIFIC LJICMRP5721-40-65 21:27:00* Test Item Value Reference Range Interpretation [...] POCT U APPEAR (test code = 3267) [facility] URINALYSIS W SPECIFIC HZXGVHN9088-91-12 22:02:00* Test Item Value Reference Range Interpretation [...] U APPEAR (test code = 3267) . [facility] Atlanta[facility] first trimester less than 14 weeks with xoxuynrtykgc2164-01-86 20:15:24EXAM: US FIRST TRIMESTER LESS THAN 14 WEEKS WITH TRANSVAGINAL HISTORY: 24 years-old Female r/o ectopic RLQ/Back pain. No previous US. LMP = 07/05/2024. Beta-hCG: A beta-hCG has not been collected at the time of dictation.mIU/mL. G/P: 1/0. TECHNIQUE: Survey transabdominal and transvaginal ultrasound imaging andcolor Doppler evaluation of the pelvis was performed. M-mode was used toevaluate the heart. Imagery Intelligence images were obtained. COMPARISON: None FINDINGS: Uterus: [...] visualized.. Cul-de-sac: No free fluid is present. [facility] Beta HCG Wrdbd5596-03-95 19:47:05* Test Item Value Reference Range Interpretation Comme [facility] BETA HCG (test code = 4401916926) 01429.00 See_Comment [Automated Veteran Live Work Loftsa ge] The system which generated this result transmitted reference range: Non- female and male patients: <5 mIU/mL. The reference range was not used to interpret this result as normal/abnormal. EVERARDO (test code = EVERARDO) Gestational Age ?Range (mIU/mL) 1-10 ?Weeks ?73-25609949-55 Weeks ?33160-85036099-17 Weeks ?2688-41983455-52 Weeks ?3081-347035 Biotin has been reported to cause a negative bias, interpret results relative to patient's use of biotin. [facility]. Metabolic Panel (36810)2024-10-14 19:05:41* Test Item Value Reference Range Interpretation Comme [facility] NA (test code = 6103546648) 137 mmol/L 135-145 K (test code = 1417521913) 3.7 mmol/L 3.5-5.0 CL (test code = 1251970575) 106 mmol/L 98-108 CO2 TOTAL (test code = 5399096713) 25 mmol/L 23-31 AGAP (test code = 4004670913) 6 2-16 BUN (test code = 5640820412) 5 mg/dL 7-23 L GLUCOSE (test code = 8802063640) 87 mg/dL 70-110 CREATININE (test code = 2160-0) 0.46 mg/dL 0.50-1.04 L TOTAL BILI (test code = 5762214284) 0.2 mg/dL 0.1-1.1 CALCIUM (test code = 9584743601) 9.3 mg/dL 8.6-10.6 T PROTEIN (test code = 7585334588) 7.6 g/dL 6.3-8.2 ALBUMIN (test code = 0024883572) 4.3 g/dL 3.5-5.0 ALK PHOS (test code = 7762696238) 51 U/L 34-122 ALTv (test code = 1742-6) 13 U/L 5-35 AST(SGOT) (test code = 4522733665) 14 U/L 13-40 eGFR (test code = 54385-4) 139.0 mL/min/1.73m2 CKD-EPI eGFR (2020). Assuming creatinine has been stable day-to-day for at least three months, the eGFR indicates Category G1 (>= 90 mL/min/1.73 m2) Lab Interpretation (test code = 87637-0) Abnormal [facility] with Tbob9215-33-69 18:58:02* Test Item Value Reference Range Interpretation [...] 35.0 g/dL 31.6-35.1 RDW-SD (test code = 04366-6) 37.1 fL 39.0-49.9 L RDW-CV (test code = 788-0) 12.0 % 12.0-15.5 PLT (test code = 777-3) 244 166-358 MPV (test code = 19434-2) 9.6 fL 9.5-12.9 NRBC/100 WBC (test code = 8070781209) 0.0 0.0-10.0 NRBC x10^3 (test code = 8457656551) See_Comment [Automated messa ge] The system which generated this result transmitted reference range: 10*3/?L. The reference range was not used to interpret this result as normal/abnormal. GRAN MAT (NEUT) % (test code = 770-8) 67.9 % IMM GRAN % (test code = 8856977499) 0.30 % LYMPH % (test code = 736-9) 24.9 % MONO % (test code = 5905-5) 6.0 % EOS % (test code = 713-8) 0.4 % BASO % (test code = 706-2) 0.5 % GRAN MAT x10^3(ANC) (test code = 5044215811) 5.39 10*3/uL 1.88-7.09 IMM GRAN x10^3 (test code = 7090813861) 0.00-0.06 LYMPH x10^3 (test code = 731-0) 1.98 10*3/uL 1.32-3.29 MONO x10^3 (test code = 742-7) 0.48 10*3/uL 0.33-0.92 EOS x10^3 (test code = 711-2) 0.03 10*3/uL 0.03-0.39 BASO x10^3 (test code = 704-7) 0.04 10*3/uL 0.01-0.07 Lab Interpretation (test code = 02623-3) Abnormal [facility] Jihe6601-25-06 18:31:00* Test Item Value Reference Range Interpretation Comme nts POCT PREG (test code = 1605) Positive On board controls acceptable with C Line (test code = 3574) Yes POCT PREG LOT # (test code = 3575) HCG 0000 [id number] POCT PREG TEST DATE (test code = 3576) 09/23/2025 Lab Interpretation (test cod e = 47039-9) Normal [facility] Urinalysis w/o Specific Ucsglse8449-26-42 20:38:00* Test Item Value Reference Range Interpretation [...] = 3257) 50 Negative - Negati ve [facility] Gsop5486-43-52 20:37:00* Test Item Value Reference Range Interpretation Comme nts POCT PREG (test code = 1605) Positive On board controls acceptable with C Line (test code = 3574) Yes POCT PREG LOT # (test code = 3575) POCT PREG TEST DATE ( test code = 3576) [facility] [id number] 22:15:00* Test Item Value Reference Range Interpretation Comme nts POCT PREG (test code = 1605) Negative On board controls acceptable with C Line (test code = 3574) Yes POCT PREG LOT # (test code = 3575) HCG [id number] POCT PREG TEST DATE (test code = 3576) 10/11/2024 Lab Interpretation (test cod e = 14208-7) Normal [facility] (ID NOW RAPID TESTING)2021-05-22 12:21:27* Test Item Value Reference Range Interpretation Comme nts SARS-CoV-2 Rapid ID NOW (test code = 04017-2) Positive Not Detected A EVERARDO (test code = EVERARDO) ID NOW COVID-19 As say is an isothermal nucleic acid amplification test intended for the qualitative detection of nucleic acid from SARS-CoV-2 viral RNA in nasopharyngeal (REEL WINDER) specimens. It is used under Emergency Use [...] clinically indicated. Lab Interpretation (test code = 85676-2) Abnormal [facility] AtlantaURINALYSIS2021-08-14 12:05:50* Test Item Value Reference Range Interpretation Comme nts APPEARANCE (test code = 5336504723) Clear Clear COLOR (test code = 4536888404) Yellow Yellow PH (test code = 8238468715) 4.8-8.0 SP GRAVITY (test code = 3171573832) 1.003-1.030 GLU U QUAL (test code = 2250698797) Normal Normal BLOOD (test code = 2091952935) 1+ Negative A KETONES (test code = 3254200264) Negative Negative PROTEIN (test code = 2887-8) Negative Negative UROBILIN (test code = 7229141822) Normal Normal BILIRUBIN (test code = 6682634269) Negative Negative NITRITE (test code = 9364946773) Negative Negative LEUK EMILIANO (test code = 0217912523) Negative Negative RBC/HPF (test code = 1520429878) See_Comment [Automated messa ge] The system which generated this result transmitted reference range: 0 - 3 HPF. The reference range was not used to interpret this result as normal/abnormal. WBC/HPF (test code = 4042750351) See_Comment [Automated messa ge] The system which generated this result transmitted reference range: 0 - 5 HPF. The reference range was not used to interpret this result as normal/abnormal. BACTERIA (test code = 7780128312) Few Negative A SQ EPITH (test code = 3256905726) HPF TRANS EPI (test code = 4817491820) <1 See_Comment [Automated messa ge] The system which generated this result transmitted reference range: <=1 HPF. The reference range was not used to interpret this result as normal/abnormal. Lab Interpretation (test code = 35983-3) Abnormal [facility] AtlantaPOCT WTEX8280-82-64 11:31:00* Test Item Value Reference Range Interpretation Comme nts POCT PREG (test code = 1605) Negative On board controls acceptable with C Line (test code = 3574) Present POCT PREG LOT # (test code = 3575) [facility] [id number] POCT PREG TEST DATE ( test code = 3576) 10/08/2022 Lab Interpretation (test cod e = 82479-8) Normal [facility] AtlantaURINE IKKZMRB8595-87-64 17:42:24* Test Item Value Reference Range Interpretation Comme nts URINE CULTURE (test code = 630-4) 10,000 - 100,000 CFU/mL mixed aerobic organisms - suggests endogenous microbial contamination [facility] Metabolic Panel (NA, K, CL, CO2, GLUCOSE, BUN, CREATININE, CA)2021-03-12 11:27:06* Test Item Value Reference Range Interpretation Comme nts NA (test code = 2592505259) 137 mmol/L 135-145 K (test code = 5999935900) 3.1 mmol/L 3.5-5.0 L CL (test code = 4446581545) 103 mmol/L 98-108 CO2 TOTAL (test code = 7154731511) 27 mmol/L 23-31 AGAP (test code = 0843905271) 2-16 BUN (test code = 2705885592) 9 mg/dL 7-23 GLUCOSE (test code = 7765186717) 82 mg/dL 70-110 CREATININE (test code = 9624960240) 0.53 mg/dL 0.50-1.04 CALCIUM (test code = 8325763417) 8.9 mg/dL 8.6-10.6 eGFR (test code = 9337882799) mL/min/1.73m2 EVERARDO (test code = EVERARDO) Association [...] imaging tests). Lab Interpretation (test code = 49261-7) Abnormal [facility] AtlantaMagnesium Vkcyr8662-67-70 11:22:32* Test Item Value Reference Range Interpretation Comme nts MAGNESIUM (test code = 4384728624) 2.1 mg/dL 1.7-2.4 Lab Interpretation (test cod e = 03626-6) Normal [facility] Atlanta[facility] with Svsuemgsgtzi4959-33-17 11:05:52* Test Item Value Reference Range Interpretation Comme nts WBC (test code = 6690-2) See_Comment [Automated Veteran Live [employer]] The system which generated this result transmitted reference range: 4.50 - 13.50 10*3/?L. The reference range was not used to interpret this result as normal/abnormal. RBC (test code = 789-8) See_Comment [Automated Veteran Live [employer]] The system which generated this result transmitted [...] 34.4 g/dL 32.0-36.0 RDW-SD (test code = 07054-6) 37.9 fL 38.5-49.0 L RDW-CV (test code = 788-0) 12.3 % 11.5-14.0 PLT (test code = 777-3) See_Comment [Automated Veteran Live [employer]] The system which generated this result transmitted reference range: 135 - 361 10*3/?L. The reference range was not used to interpret this result as normal/abnormal. MPV (test code = 08265-1) 10.1 fL 9.4-13.3 NRBC/100 WBC (test code = 2325917953) See_Comment [Automated me ssage] The system which generated this result transmitted reference range: 0.0 - 10.0 /100 WBCs. The reference range was not used to interpret this result as normal/abnormal. NRBC x10^3 (test code = 9990736306) <0.01 See_Comment [Automated messa ge] The system which generated this result transmitted reference range: 10*3/?L. The reference range was not used to interpret this result as normal/abnormal. GRAN MAT (NEUT) % (test code = 770-8) 59.8 % IMM GRAN % (test code = 6266001358) 0.80 % LYMPH % (test code = 736-9) 26.3 % MONO % (test code = 5905-5) 12.3 % EOS % (test code = 713-8) 0.5 % BASO % (test code = 706-2) 0.3 % GRAN MAT x10^3(ANC) (test code = 4830259920) 3.91 10*3/uL 1.50-10.30 IMM GRAN x10^3 (test code = 7400991933) 0.05 10*3/uL 0.00-0.06 LYMPH x10^3 (test code = 731-0) 1.72 10*3/uL 0.70-7.40 MONO x10^3 (test code = 742-7) 0.80 10*3/uL 0.00-0.50 H EOS x10^3 (test code = 711-2) 0.03 10*3/uL 0.00-0.40 BASO x10^3 (test code = 704-7) <0.03 0.00-0.10 Lab Interpretation (test code = 26960-2) Abnormal [facility] (ID NOW RAPID TESTING)2021-03-11 18:10:27* Test Item Value Reference Range Interpretation Comme nts SARS-CoV-2 Rapid ID NOW (test code = 45136-0) Not Detected Not Detected EVERARDO (test code = EVERARDO) ID NOW COVID-19 As say is an isothermal nucleic acid amplification test intended for the qualitative detection of nucleic acid from SARS-CoV-2 viral RNA in nasopharyngeal (REEL WINDER) specimens. It is used under Emergency Use [...] clinically indicated. Lab Interpretation (test code = 92582-3) Normal [facility] AtlantaLactic Acid Whole Cnqfg9559-46-30 17:11:07* Test Item Value Reference Range Interpretation Comme nts LACTIC ACID (test code = 7498831683) 0.91 mmol/L 0.50-2.20 Lab Interpretation (test cod e = 17279-3) Normal [facility] AtlantaCT ABDOMEN PELVIS W LZHLNFJN1206-07-79 16:28:25No acute abnormality identified. INDICATION: ?Abdominal abscess/infection [...] or abscess is noted.IMPRESSIONNo acute abnormality identified. [facility] Oftpynnhjnrn5722-14-23 16:05:33* Test Item Value Reference Range Interpretation [...] 34.6 g/dL 32.0-36.0 RDW-SD (test code = 32193-0) 36.3 fL 38.5-49.0 L RDW-CV (test code = 788-0) 11.9 % 11.5-14.0 PLT (test code = 777-3) See_Comment H [Automated message] The system which generated this result transmitted reference range: 135 - 361 10*3/?L. The reference range was not used to interpret this result as normal/abnormal. MPV (test code = 99170-2) 9.6 fL 9.4-13.3 NRBC/100 WBC (test code = 4533677215) See_Comment [Automated message] The system which generated this result transmitted reference range: 0.0 - 10.0 /100 WBCs. The reference range was not used to interpret this result as normal/abnormal. NRBC x10^3 (test code = 7363515723) <0.01 See_Comment [Automated message] The system which generated this result transmitted reference range: 10*3/?L. The reference range was not used to interpret this result as normal/abnormal. GRAN MAT (NEUT) % (test code = 770-8) 86.3 % IMM GRAN % (test code = 8345582246) 0.90 % LYMPH % (test code = 736-9) 6.3 % MONO % (test code = 5905-5) 6.1 % EOS % (test code = 713-8) 0.1 % BASO % (test code = 706-2) 0.3 % GRAN MAT x10^3(ANC) (test code = 8369383177) 20.00 10*3/uL 1.50-10.30 H IMM GRAN x10^3 (test code = 3303979128) 0.21 10*3/uL 0.00-0.06 H LYMPH x10^3 (test code = 731-0) 1.45 10*3/uL 0.70-7.40 MONO x10^3 (test code = 742-7) 1.42 10*3/uL 0.00-0.50 H EOS x10^3 (test code = 711-2) <0.03 0.00-0.40 BASO x10^3 (test code = 704-7) 0.07 10*3/uL 0.00-0.10 Lab Interpretation (test code = 02975-9) Abnormal [facility] AtlantaUrinalysis2021-06-03 15:41:19* Test Item Value Reference Range Interpretation Comme nts APPEARANCE (test code = 0587707481) Hazy Clear A COLOR (test code = 6981821467) Yellow Yellow PH (test code = 1308938210) 4.8-8.0 SP GRAVITY (test code = 0067458563) 1.003-1.030 GLU U QUAL (test code = 6471606220) Normal Normal BLOOD (test code = 3736234410) 1+ Negative A KETONES (test code = 9887378193) Negative Negative PROTEIN (test code = 2887-8) Negative Negative UROBILIN (test code = 0297316296) Normal Normal BILIRUBIN (test code = 7196019689) Negative Negative NITRITE (test code = 2196930376) Negative Negative LEUK EMILIANO (test code = 0219169273) 500/uL Negative A RBC/HPF (test code = 9621755741) See_Comment H [Automated messa ge] The system which generated this result transmitted reference range: 0 - 3 HPF. The reference range was not used to interpret this result as normal/abnormal. WBC/HPF (test code = 6115722994) See_Comment H [Automated messa ge] The system which generated this result transmitted reference range: 0 - 5 HPF. The reference range was not used to interpret this result as normal/abnormal. BACTERIA (test code = 1666237388) Few Negative A MUCOUS (test code = 1316993899) Slight Negative LPF A SQ EPITH (test code = 3039791187) HPF Lab Interpretation (test code = 82296-6) Abnormal [facility] [id number] 15:37:26* Test Item Value Reference Range Interpretation Comme nts NA (test code = 4763594301) 137 mmol/L 135-145 K (test code = 0024239428) 3.9 mmol/L 3.5-5.0 CL (test code = 9620625595) 104 mmol/L 98-108 CO2 TOTAL (test code = 7152385762) 25 mmol/L 23-31 AGAP (test code = 0724470061) 2-16 BUN (test code = 8466187322) 15 mg/dL 7-23 GLUCOSE (test code = 8132860460) 106 mg/dL 70-110 CREATININE (test code = 1008308657) 0.54 mg/dL 0.50-1.04 TOTAL BILI (test code = 9517839349) 0.8 mg/dL 0.1-1.1 CALCIUM (test code = 3086358884) 9.4 mg/dL 8.6-10.6 T PROTEIN (test code = 1151476102) 7.9 g/dL 6.3-8.2 ALBUMIN (test code = 0240523139) 4.5 g/dL 3.5-5.0 ALK PHOS (test code = 1216044569) 87 U/L 34-122 ALTv (test code = 1742-6) 21 U/L 5-35 AST(SGOT) (test code = 2951295186) 21 U/L 13-40 eGFR (test code = 8789367729) mL/min/1.73m2 EVERARDO (test code = EVERARDO) Association [...] or urine or abnormalities in imaging tests). [facility], [id number] 15:36:45* Test Item Value Reference Range Interpretation Comme nts LIPASE (test code = 6640843777) 52 U/L 0-220 Lab Interpretation (test cod e = 07285-9) Normal [facility] [id number] 15:06:00* Test Item Value Reference Range Interpretation Comme nts POCT PREG (test code = 1605) negative On board controls acceptable with C Line (test code = 3574) present POCT PREG LOT # (test code = 3575) [id number] POCT PREG TEST DATE ( test code = 3576) 09/07/2022 Lab Interpretation (test cod e = 02329-2) Normal [facility] (ID NOW RAPID TESTING)2021-02-25 02:15:05* Test Item Value Reference Range Interpretation Comme nts SARS-CoV-2 Rapid ID NOW (test code = 79919-0) Not Detected Not Detected EVERARDO (test code = EVERARDO) ID NOW COVID-19 As say is an isothermal nucleic acid amplification test intended for the qualitative detection of nucleic acid from SARS-CoV-2 viral RNA in nasopharyngeal (REEL WINDER) specimens. It is used under Emergency Use [...] clinically indicated. Lab Interpretation (test code = 44685-4) Normal [facility] (COVID-19) by RT-PCR (HIGH RISK) 2020-04-13 00:00:00* Test Item Value Reference Range Interpretation Comme nts SARS-CoV-2 INTERPRETATION (t est code = 37080) NEGATIVE SOURCE (test code = 03645) NOT SPECIFIED Marco Antonio Goins History and Physical Notes Date/Time Note Provider Source 2025-05-11 19:16:19 TRIAGE/ADMISSION HISTORY & PHYSICAL TRIAGE/ADMISSION DATE: 05/11/2025 7:16 PM OB ATTENDING IN TRIAGE AND/OR ON ADMISSION: ERIKA CHAVARRIA IDENTIFYING DATA Lorrie Tabares is 24 year old, /White, 39w5d, female with SARA. Patient's last menstrual period was 08/06/2024 (approximate). : 2000 Primary [facility] Care Clinic: [facility] CHIEF COMPLAINT IOL HISTORY OF PRESENT [...] Right 04/06/2018 Surgeon: Rah Nicholson MD; [place] [facility] [place] hospitals: none Past [...] 04/15/25 - PP control plan: OCPs - [place] RWSP Fetus: - Presentation on admission: cephalic - anterior placenta - EFW: 3886 g, 75%tile; AC: 35.66 cm, 71%tile - FHT reactive and reassuring - Normal anatomy scan Plan was discussed with OB ATTENDING: ERIKA CHAVARRIA OB RESIDENT: Nafisa Colbert MD Cosigned by Erika Chavraria MD at 05/11/2025 10:28 PM CDT Associated attestation - Erika Chavarria MD - 05/11/2025 10:28 PM CDT I was the faculty on L&D on 05/11/2025. Erika Chavarria MD [facility] Procedure Notes Date/Time Note Provider Source 2025-05-12 19:30:46 Associated Order(s): Central Neuraxial Block Central Neuraxial Block Date/Time: 05/12/2025 6:55 PM Performed by: Joyce Siddiqui DO Authorized by: eKely Hobson MD Patient Location: OB Reason for Block: OB request, Patient request, Labor analgesia, Surgical anesthesia and Post-op pain management Staff: Anesthesiologist: Keely Hobson MD Resident/SUPERVISOR NUCLEAR MEDICINE: Joyce Siddiqui DO Performed by: resident/SUPERVISOR NUCLEAR MEDICINE Preanesthetic Checklist: patient identified, IV checked, risks [...] KRIS saline Guidance with: landmark technique} Epidural/Spinal Sutter and/or Catheter: Epidural/Spinal Kit: BBraun Needle Type: [...] patient tolerated procedure well with no complications [facility] Notes Date/Time Note Provider Source 2025-05-14 14:12:05 [...] Bonnie Braswell RN Outcome: Progressing as expected [facility] 2025-05-14 13:40:00 Images from the original note were not included. This note was copied from a baby's chart. Assessment (most recent) Assessment - 05/14/25 1340 General Information Visit Follow-up Oral Assessment Oral assessment New assessment Date [...] storage and weaning;Signs of an effective latch Gore Maker Observation Assist with latch;Mom states latches well with no pain Position left side Football; latched effectively with nipple shield upon release milk visible in shield;Suckled in coordinated bursts latched with nipple shield with small amount of formula placed in shield Mother demonstrated teach back of Application of nipple shield;Positioning and latching at breast Follow up Mom will call staff;[facility] warmline;WIC;[facility] Recommended Feeding Plan Recommended feeding plan Frequent opal-ga-wipu time with parents;On-demand , 8-12 times in 24 hours not to exceed 6 hours between feeds;Offer both breasts prior to formula supplementation;Mother choosing to supplement with formula after breastfeeds Elaine Thomas MSN, RNC-MNN, IBCLC Elaine Thomas RN [facility] 2025-05-14 12:12:00 Images from the original note were not included. This note was copied from a baby's chart. Assessment (most recent) Assessment - 05/14/25 1212 General Information Visit Initial Percent of weight loss- 3.67 Mom's age (years) 24 years Gestational age 40 weeks 1 Parity 1 Living Children 1 Feeding plan Breast and Formula plans Undecided Delivery method Breast changes during Enlarged Risk factors Obesity Infant Oral Assessment Oral assessment Deferred Date of 05/13/25 Time of 0800 location Mother Baby Unit Breast Assessment Breast [...] to and beyond 1 year with complimentary foods;Infant hunger cues;On-demand feeds at least 8 or more over 24 hours;Diaper counts/color;Benefits of breastmilk;Hand expression;Risk of formula supplementation;Delay of pacifier/artificial nipples up to 4 weeks;Benefits of skin to skin contact;Encouraged rooming-in;Waking techniques;Signs of an effective latch;Infant stomach size;Calming techniques;2nd day/growth spurt cluster feeds;Breaking seal;Lactogenesis Handouts given Bhut[place] Gore Maker Observation Reported;Mom states latches well with no pain mother reports that latched well, but she started giving formula becauae she was not feeling well so infant has been only feeding formula. sleep after having a circumcision. Interventions Taught hand expression;Breast massage Follow up Mom will call staff;[facility] warmline;[facility] Recommended Feeding Plan Recommended feeding plan Frequent jbvm-bz-blav time with parents;On-demand , 8-12 times in 24 hours not to exceed 6 hours between feeds;Offer both breasts prior to formula supplementation;Mother choosing to supplement with formula after breastfeeds OTHER $ SERVICES Initial Mother to call for assistance when infant is showing early hunger cues. Elaine Thomas, MSN, RNC-MNN, IBCLC [facility] 2025-05-14 11:59:47 Problem: Falls, Risk of Goal: Absence of falls Outcome: Progressing as expected Problem: Discharge Planning - Goal: Adequate for discharge Outcome: Progressing as expected Goal: Mood stable Outcome: Progressing as expected Problem: Pain Goal: Control of pain at or below patient's documented comfort goal Outcome: Progressing as expected Goal: Reduction in pain sensation Outcome: Progressing as expected [facility] 2025-05-14 05:20:15 Problem: Falls, Risk of Goal: [...] Goal: Reduction in pain sensation Outcome: Resolved [facility] 2025-05-13 14:43:32 Patient: Lorrie Tabares Procedure Summary Date: 05/12/25 Room / Location: Anesthesia Start: 1854 Anesthesia Stop: 05/13/25 1215 Procedure: CENTRAL NEURAXIAL BLOCK Diagnosis: Scheduled Providers: [...] Tamiko Pierre MD 05/13/2025 14:43 AN-ANESTHESIOLOGY ANESTHESIOLOGIST [facility] 2025-05-13 12:14:34 Problem: Intrapartum process (including labor [...] in pain sensation Outcome: Progressing as expected [facility] 2025-05-13 08:47:43 VAGINAL DELIVERY NOTE Delivery Date: [...] None Delivery Blood Loss Delivery: 05/12/251999 - 05/13/2553 Delivery Admission: 05/11/251812 - 05/13/25 0853 Delivery [...] administered rectally. Vaginal Counts: Initial count personnel: LILIANE KIDD Initial count verified by: BERNIE BORGES Initial Count 0 10 Added Counts 2 5 Final Count 2 15 Final count personnel: LILIANE KIDD Final count verified by: Tan BORGES RN Accurate final count? Yes Vita Funez MD Cosigned by Erika Chavarria MD at 05/13/2025 8:57 AM CDT Associated attestation - Erika Chavarria MD - 05/13/2025 8:57 AM CDT I was the faculty on L&D on 05/13/2025. I was present for delivery of a viable infant. No immediate complications noted. Erika Chavarria MD OBSTETRICS & GYNECOLOGY [facility] 2025-05-13 08:30:19 Problem: Intrapartum process (including labor [...] Outcome: Progressing as expected Maggie Borges RN [facility] 2025-05-12 20:18:20 Problem: Intrapartum process (including labor [...] Outcome: Progressing as expected Temi Cabrera RN 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 Hold on DOS. Phentermine: Alert [facility] anesthesiologist SGLT2 Inhibitors: "gliflozins" to be held [...] Right 04/06/2018 Surgeon: Rah Nicholson MD; [place] [facility] [place] Physical Exam General no apparent distress [...] Epidural Anesthesia plan discussed with: patient or retail customer service representative Post-Operative Analgesia: Recovery Plan: LDR Additional comments: ANESTHESIOLOGY 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 Hold on DOS. Phentermine: Alert [facility] anesthesiologist SGLT2 Inhibitors: "gliflozins" to be held [...] Right 04/06/2018 Surgeon: Rah Nicholson MD; [place] [facility] [place] Physical Exam General no apparent distress [...] Epidural Anesthesia plan discussed with: patient or retail customer service representative Post-Operative Analgesia: routine analgesia & antiemetics Recovery Plan: LDR Additional comments: AN-ANESTHESIOLOGY ANESTHESIOLOGIST [facility] 2025-05-12 07:31:34 Problem: Intrapartum process (including labor pain) Goal: Absence of or reduction of complications of labor 05/12/2025 0731 by Kamryn Middleton, RN Outcome: Progressing as expected 05/12/2025 0728 by Kamryn Middleton RN Outcome: Progressing as [...] Outcome: Progressing as expected Kamryn Middleton RN [facility] 2025-05-05 08:58:10 Noted. Pt has an appt today at 1100. NANCY MADERA RN 05/05/2025 8:58 AM Nancy Madera RN [facility] 2025-02-11 15:05:39 Routed to provider Basilio Chao LVN [facility] 2025-02-05 11:17:32 Nurse reply via [employer] message. Basilio Chao LVN [facility] 2025-01-28 14:39:36 Called pt, discussed and educated on rh negative status of mom and baby. Patient verbalized understanding. Gissell Barnes RN 01/28/25 2:[address] [facility] 2025-01-23 13:28:43 Patient informed of no need for additional USG at this time, verbalized understanding. T [facility] 2025-01-23 08:05:42 Attempted to call patient, no answer, left vm. T [facility] 2025-01-22 16:08:38 Pt had an anatomy scan completed last month, the result wnl , no recommendations for additional usg were noted. If patient desires 3d/4d ultrasound she can make an appt with [facility] for the fun ultrasound pics, but as of right now there is no medical indication for another ultrasound. MOJGAN Mcginnis 01/22/2025 4:[address] [facility] 2025-01-22 12:57:33 Lorrie Tabares is a 24 year old female Patient requesting referral for ultrasound to be placed to schedule appointment, please call [phone] (home) Isabel Villanueva [facility] 2024-10-29 14:11:00 Access Center Lorrie Tabares is a 24 year old female Received [employer] message: ever since I ve been taking [...] / Severity: headache "it doesn't really hurt" 11/18 after taking Tylenol 3 hours ago Associated [...] Reason for Disposition Headache Protocols used: - Deywptmc-COMHX-CI ADALID Santa, RN [facility] Access Center Triage Nurse RELATIONS ADVISER Vicki Light RN [facility] 2024-10-28 17:50:05 Spoke to patient to answer questions regarding test results. Pt verbalized understanding. Torrez RN [facility] 2024-10-28 16:57:06 Patient is positive for BV. Sent Metronidazole to the pharmacy. [facility] 2024-10-28 16:45:37 Lorrie Tabares is a 24 year old female. Patient is calling asking to speak with a nurse regarding lab results [facility] Marco Antonio Zhang [facility]2025-01-06 15:02:21 Pt given printed and verbal discharge [...] no apparent distress. Left with spouse. [facility] 11:35:00 Patient arrived ambulatory c/o right sided low back pain that radiates down to her right buttock. Denies any injury. Last medicated with tylenol yesterday. Patient is 10 weeks. G1. Has not seen an obgyn yet. Batista [facility]16[facility] 07:43:01 Called pt, discussed results and poc. Verbalized understanding. Gissell Barnes RN 09/20/24 7:43 AM [facility]2024-12-13 07:36:20 Duplicate encounter. Gissell Barnes RN 09/20/24 7:36 AM [facility]2024-12-12 17:41:00 Lorrie Tabares is a 23 year old female Patient is returning a missed call to the clinic nurse in regards to results Please advise [phone] (home) [facility] - [address] AT [facility] [address] [facility]54 15:00:42 Called pt, no answer. Left vm. Gissell Barnes RN 09/19/24 3:00 PM [facility]2024-12-12 14:09:10 Pt is Rh neg, please inform her she will need rhogam at 28 wks and prn vaginal bleeding MOJGAN Mcginnis 09/19/2024 2:09 PM [place] [id number] 18:15:58 Pt given printed and verbal discharge [...] gait, in no apparent distress, Shira [facility]ista [facility]7235-38-13 14:11:47 Patient to ED for vomiting x 3 days. Her abdomen feels like it is on fire. Every time she eats she vomits. She felt like this last time and she got admitted per patient. ÑOT Ced Womack [facility]
--- NOTE | 2025-06-01 16:22 | ER ---
Nurse's Notes [facility] Name: Latonia Tabares Age: 24 yrs Sex: Female : 2000 Arrival Date: 06/01/2025 Time: 15:40 Bed 7 Private MD: Diagnosis: Vaginal Pain Presentation: 06/01 15:55 Chief complaint: Patient states: VAGINAL STINGING AND PAIN SINCE GIVING 2 WEEKS dd2 AGO. Coronavirus screen: At this time, the client does not indicate any symptoms associated with coronavirus-19. Ebola Screen: No symptoms or risks identified at this time. Initial Sepsis Screen: Does the patient meet any 2 criteria? No. Patient's initial sepsis screen is negative. Does the patient have a suspected source of infection? No. Patient's initial sepsis screen is negative. Risk Assessment: Do you want to hurt yourself or someone else? Patient reports no desire to harm self or others. Onset of symptoms was May 18, 2025. 15:55 Method Of Arrival: Ambulatory dd2 15:55 Acuity: NICHO 4 dd2 Triage Assessment: 15:57 General: Appears in no apparent distress. uncomfortable, Behavior is calm, cooperative, dd2 appropriate for age. Pain: Complains of pain in vaginal opening Pain currently is 7 out of 10 on a pain scale. EENT: No deficits noted. No signs and/or symptoms were reported regarding the EENT system. Neuro: No deficits noted. Cardiovascular: No deficits noted. Respiratory: No deficits noted. GI: No deficits noted. No signs and/or symptoms were reported involving the gastrointestinal system. : Reports pain in suprapubic area VAGINAL. Derm: No deficits noted. Musculoskeletal: No deficits noted. No signs and/or symptoms reported regarding the musculoskeletal system. 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 - Infectious Disease History:: Denies. - Social history:: Smoking status: Patient denies any tobacco usage or history of. Screenin:33 [facility] ED Fall Risk Assessment (Adult) History of falling in the last 3 months, nh2 including since admission No falls in past 3 months (0 pts) Confusion or Disorientation No (0 pts) Intoxicated or Sedated No (0 pts) Impaired Gait No (0 pts) Mobility Assist Device Used No (0 pt) Altered Elimination No (0 pt) Score/Fall Risk Level 0 - 2 = Low Risk. [facility] ED Fall Risk Assessment (Adult) Score/Fall Risk Level 0 - 2 = Low Risk Oriented to surroundings, Maintained a safe environment, Educated pt \T\ family on fall prevention, incl call for assistance when getting out of bed, Assessed \T\ reinforced patient's understanding of fall precautions. Abuse screen: Denies threats or abuse. Nutritional screening: No deficits noted. Tuberculosis screening: No symptoms or risk factors identified. Assessment: 15:59 Reassessment: SEE TRIAGE ASSESSMENT. dd2 Vital Signs: 15:55 BP 122 / 67; Pulse 69; Resp 16; Temp 98.2; Pulse Ox 99% on R/A; Weight 99.79 kg; Height dd2 5 ft. 4 in. ; Pain 7/10; 16:36 BP 122 / 67; Pulse 66; Resp 18; Pulse Ox 100% on R/A; nh2 15:55 Body Mass Index 37.76 (99.79 kg, 162.56 cm) dd2 15:55 Pain Scale: Adult dd2 ED Course: 15:43 Patient arrived in ED. cj3 15:45 Luan Christianson FNP-C is PHCP. dr5 15:45 Ceci Reyez FNP-C is PHCP. kb 15:45 Madhu Stevens MD is Attending Physician. kb 15:57 Triage completed. dd2 15:57 Arm band placed on right wrist. dd2 16:33 Patient has correct armband on for positive identification. Provided Education on: nh2 waiting for results for urine. 16:33 No provider procedures requiring assistance completed. Patient did not have IV access nh2 during this emergency room visit. Administered Medications: No medications were administered Medication: 16:34 VIS not applicable for this client. nh2 Outcome: 16:22 Discharge ordered by . kb 16:35 Discharged to home ambulatory, nh2 16:35 Condition: good 16:35 Discharge instructions given to patient, Instructed on discharge instructions, follow up and referral plans. 16:37 Patient left the ED. nh2 Signatures: Ceci Reyez FNP-C FNP-Ckb DAVIS, DIANA, RN RN dd2 Min Barnes Jr RN RN nh2 Sammy, Luan, FUEL QUALITY TECH-C FUEL QUALITY TECH-Cdr5 Lisbeth Posadas cj3
--- NOTE | 2025-06-01 16:22 | EDPHYS ---
Physician Documentation [facility] Name: Latonia Tabares Age: 24 yrs Sex: Female : 2000 Arrival Date: 06/01/2025 Time: 15:40 Bed 7 Private MD: ED Physician Madhu Stevens HPI: 06/01 16:49 This 24 yrs old Female presents to ER via Ambulatory with complaints of Vaginal Pain. kb 16:49 Pt is a 24 year old female who presents for vaginal pain that has been ongoing for 2 kb weeks since vaginal delivery. States she was here since the delivery and given Tylenol with codeine which helped but is out so she requests another prescription. Denies fever, dysuria. States she has not followed up with OB, has an appt in 2 weeks. . 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 - Infectious Disease History:: Denies. - Social history:: Smoking status: Patient denies any tobacco usage or history of. ROS: 16:49 Constitutional: As per HPI kb Exam: 16:49 Constitutional: This is a well developed, well nourished patient who is awake, alert, kb and in no acute distress. Head/Face: Normocephalic, atraumatic. ENT: Moist Mucous membranes Cardiovascular: Regular rate Respiratory: Respirations even and unlabored. No increased work of breathing. Talking in full sentences Abdomen/GI: Soft, non-tender. No distention Skin: Warm, dry with normal turgor. Normal color. MS/ Extremity: Pulses equal, no cyanosis. Neurovascular intact. Full, normal range of motion. Neuro: Awake and alert, GCS 15, oriented to person, place, time, and situation. 16:49 : Pelvic Exam: External exam: tenderness to vaginal area without erythema, swelling, discharge, bloody, the nurse was present for the exam, Vital Signs: 15:55 BP 122 / 67; Pulse 69; Resp 16; Temp 98.2; Pulse Ox 99% on R/A; Weight 99.79 kg; Height dd2 5 ft. 4 in. ; Pain 7/10; 16:36 BP 122 / 67; Pulse 66; Resp 18; Pulse Ox 100% on R/A; nh2 15:55 Body Mass Index 37.76 (99.79 kg, 162.56 cm) dd2 15:55 Pain Scale: Adult dd2 MDM: 15:45 Medical Screening Exam initiated kb 16:49 Differential diagnosis: urinary tract infection, vaginosis, pain post vaginal delivery, kb infection. Data reviewed: vital signs, nurses notes. Counseling: I had a detailed discussion with the patient and/or guardian regarding the historical points, exam findings, and any diagnostic results supporting the discharge/admit diagnosis, the need for outpatient follow up, an OB/Gyne specialist, to return to the emergency department if symptoms worsen or persist or if there are any questions or concerns that arise at home. ED course: Educated pt that we do not give repeat prescriptions for narcotic pain medication. Recommended UA here and follow up with OB for vaginal pain. Pt requested to be discharged. . Administered Medications: No medications were administered Disposition: 17:50 Co-signature as Attending Physician, Madhu Stevens MD I reviewed the patient's care rn provided by the Advanced Practice Provider and agree with the diagnosis and treatment plan. Disposition Summary: 06/01/25 16:22 Discharge Ordered Notes: Location: Home kb Condition: Stable kb Diagnosis - Vaginal Pain kb Followup: kb - With: Emergency Department - When: As needed - Reason: Worsening of condition Followup: kb - With: Private Physician - When: 2 - 3 days - Reason: Recheck today's complaints, Continuance of care, Re-evaluation by your physician Discharge Instructions: - Discharge Summary Sheet kb - Vaginal Delivery kb - Care After Vaginal Delivery kb Forms: - Medication Reconciliation Form kb - Antibiotic Education kb - Prescription Opioid Use kb - Patient Portal Instructions kb - Leadership Thank You Letter kb Signatures: Dispatcher [employer] EDMS Ceci Reyez, ADULT PAROLE OFFICER-C ADULT PAROLE OFFICER-Madhu Beth MD MD rn DAVIS, DIANA, RN RN dd2 Corrections: (The following items were deleted from the chart) 15:55 15:55 UA Rfx Geovany Cult if indicated+[email or web address] ordered. EDMS EDMS
[2025-06-01 17:02] VITALS: BP 122/67; TEMP 98.2
[2025-06-01 17:04] VITALS: O2SAT 100
== END 2025-06-01 16:37 | disposition home or self-care (01) ==
LOC: ER 15:40
DX: R10.2 Pelvic and perineal pain (principal)
CPT/HCPCS: 99282